=== PATIENT | female | born 1965 | race Caucasian/White ===

== ENCOUNTER 2019-12-17 09:29 | Outpatient (CLI) | payer OTHER, SELFPAY ==
--- NOTE | ~2019-12-17 | US_ITS ---
EXAMINATION: US right upper quadrant DATE: 12/17/2019 10:21 INDICATION: Pancreatic mass TECHNIQUE: Multiple grayscale and Doppler ultrasound images of the abdomen were obtained. COMPARISON: 03/16/2018 FINDINGS: There is a questionable 1.7 cm hypoechoic area in the head of the pancreas. The pancreatic tail is obscured by bowel gas. The liver is normal with normal echogenicity and echotexture. No surfa ce nodularity. Normal hepatopetal flow in the main portal vein. The gallbladder is normal with no abn ormal wall thickening, pericholecystic fluid or stones. The mildly dilated common bile duct measures 7 mm. There was no sonographic Shen sign. IMPRESSION: 1. Possible hypoechoic area in the head of the pancreas which may reflect the pancreatic mass describ ed in the clinical history however comparison imaging is unavailable and would be helpful. In additio n, pancreas protocol MRI or CT are more sensitive for detection and follow-up of pancreatic masses. 2. Mildly dilated common bile duct of unclear significance. Reviewed, dictated and finalized at location A. IMPRESSION: 1. Possible hypoechoic area in the head of the pancreas which may reflect the p ancreatic mass described in the clinical history however comparison imaging is unavailable and would be helpful. In addition, pancreas protocol MRI or CT are more sensitive for detection and follow-up of pancreatic masses. 2. Mildly dilated common bile duct of unclear significance.
== END 2019-12-17 09:30 | disposition home or self-care (01) ==
PROVIDERS: PCP Emergency Medicine; Visit Provider Emergency Medicine
DX: K86.9 Disease of pancreas, unspecified (principal)
CPT/HCPCS: 76705

== ENCOUNTER 2019-12-17 11:53 | Emergency (ER) | payer OTHER, SELFPAY ==
[2019-12-17 12:02] VITALS: BP 157/106; PULSE 92; RESP 18; TEMP 36.8; O2SAT 97
--- NOTE | 2019-12-17 12:43 | ED.GENADULT ---
HPI - General Adult General Chief complaint: Ear Stated complaint: bleeding in the ear Time Seen by Provider: 12/17/19 12:11 Source: patient History of Present Illness HPI narrative: Patient is 54 y/o female complaining of moderate bleeding from right ear starting yesterday. Bleeding has stopped spontaneously. She states that she was making some coffee in the kitchen when this happened. She denies any trauma to her ear. She states that her hearing was muffled and she could not hear much for a while. However, she is able to hear currently. She denies any fever, chill. She has some chronic cough due to COPD. Related Data Home Medications Medication Instructions Recorded Confirmed albuterol sulfate 90 mcg/actuation 1 inh INHALATION Q4H 12/09/19 12/12/19 aerosol inhaler albuterol sulfate 90 mcg/actuation 1 puff INHALATION Q4H PRN 12/09/19 12/12/19 aerosol inhaler alendronate 70 mg tablet 70 mg PO WEEKLY 12/09/19 12/12/19 aspirin 81 mg chewable tablet 81 mg PO DAILY 12/09/19 12/12/19 carvedilol 25 mg tablet 25 mg PO Q12H 12/09/19 12/12/19 losartan 50 mg tablet 50 mg PO DAILY 12/09/19 12/12/19 metformin 500 mg tablet 500 mg PO DAILY 12/09/19 12/12/19 montelukast 10 mg tablet 10 mg PO DAILY 12/09/19 12/12/19 ropinirole 0.25 mg tablet 0.25 mg PO BID 12/09/19 12/12/19 rosuvastatin 40 mg tablet 40 mg PO DAILY 12/09/19 12/12/19 sertraline 100 mg tablet 100 mg PO DAILY 12/09/19 12/12/19 Allergies Allergy/AdvReac Type Severity Reaction Status Date / Time No Known Allergies Allergy Verified 12/17/19 12:10 Review of Systems Constitutional: Constitutional: Denies chills, Denies fever(s), Denies headache(s) and Denies weakness Comments: bleeding from right ear Eyes: Eyes: Denies blurry vision ENT: Denies headache(s) and Denies neck pain Cardiovascular: Cardiovascular: Denies chest pain and Denies dyspnea Respiratory: Respiratory: Denies cough and Denies dyspnea Gastrointestinal: Gastrointestinal: Denies abdominal pain, Denies diarrhea, Denies nausea and Denies vomiting Genitourinary: Genitourinary: Denies hematuria and Denies dysuria Musculoskeletal: Musculoskeletal: Denies back pain and Denies neck pain Neurologic: Denies headache(s) and Denies weakness PMFSH Past Medical History Medical History History of asthma History of COPD History of depression History of diabetes mellitus, type II History of high cholesterol History of hypertension History of stroke Surgical History Surgical History H/O cardiac catheterization H/O removal of cyst brain, unable to remove due to cyst being wrapped around spinal cord. H/O: hysterectomy History of delivery S/P PEANUT CLEANER shunt Family History Family History Father Diabetes mellitus Hypertension Mother Hypertension Other Cerebrovascular accident Family history of arthritis Family history of heart disease in male family member before age 55 Family history of lung disease Social History Social History Smoking packs per day: 1 Smoking cigarettes per day: 20.0 Years smoked: 38 Smoking pack-years: 38.00 Smoking status: Heavy tobacco smoker Tobacco type: cigarettes Alcohol intake: never Exam Const: General: no acute distress and well developed Orientation/consciousness: oriented to person, oriented to place, oriented to time and patient oriented x3 HENMT: Head: normocephalic Ears: external ears normal, TM normal on the left and other (blood in right ear canal, right TM appears perforated) General nose exam: Normal external nose present Eyes: General: appearance normal, both eyes and all related structures Conjunctivae: conjunctivae normal Neck: Neck: normal visual inspection and full ROM Chest: Chest palpation & inspection: normal in
[2019-12-17] MEDS: TETANUS,DIPHTHERIA,AC PERTUSSIS ADULT (0.5 ML) BOOSTRIX IM (13:14)
== END 2019-12-17 13:19 | disposition home or self-care (01) ==
PROVIDERS: Emergency Provider Emergency Medicine; PCP Emergency Medicine
DX: H72.91 Unspecified perforation of tympanic membrane, right ear (principal); J45.909 Unspecified asthma, uncomplicated; F32.9 Major depressive disorder, single episode, unspecified; E11.9 Type 2 diabetes mellitus without complications; E78.5 Hyperlipidemia, unspecified; I10 Essential (primary) hypertension; Z79.84 Long term (current) use of oral hypoglycemic drugs; Z23 Encounter for immunization
CPT/HCPCS: 90471; 90715; 99283

== ENCOUNTER 2019-12-23 14:17 | Outpatient (CLI) | payer OTHER, SELFPAY ==
--- NOTE | ~2019-12-23 | CT_ITS ---
EXAMINATION: CT lumbar spine wo con DATE: 12/23/2019 14:40 INDICATION: Low back pain. TECHNIQUE: Computed tomography (CT) of the lumbar spine was performed without intravenous contrast. A utomated exposure control and iterative reconstruction technique were employed. The dose-length produ ct was 1126.77 mGy-cm. COMPARISON: Lumbar spine CT 04/21/2009 FINDINGS: Bone alignment is normal. There is a chronic compression fracture of L1 with 1/5 loss of he ight. There is mild chronic anterior wedging of T12 vertebral body. There is moderately decreased dis c height at L5-S1. There is developmental osseous central canal stenosis from L3 to L5. The following disc levels are specifically discussed: L1-L2: The disc does not extend beyond the endplate margin. There is severe right and moderate left f acet joint osteoarthritis. There is no neural foraminal stenosis. There is no central canal stenosis. L2-L3: The disc is bulging. There is severe bilateral facet joint osteoarthritis. There is mild bilat eral neural foraminal stenosis. There is mild central canal stenosis. L3-L4: The disc is bulging. There is severe bilateral facet joint osteoarthritis. There is mild bilat eral neural foraminal stenosis. There is mild central canal stenosis. L4-L5: The disc is bulging. There is severe bilateral facet joint osteoarthritis. There is mild bilat eral neural foraminal stenosis. There is mild central canal stenosis. L5-S1: The disc is bulging. There is severe bilateral facet joint osteoarthritis. There is moderate b ilateral neural foraminal stenosis. There is moderate central canal stenosis. IMPRESSION: 1. Moderate lumbar spondylosis, stable from 04/21/2009. Reviewed, dictated and finalized at location A.
== END 2019-12-23 14:18 | disposition home or self-care (01) ==
PROVIDERS: PCP Emergency Medicine
DX: M54.5 Low back pain (principal); M47.26 Other spondylosis with radiculopathy, lumbar region
CPT/HCPCS: 72131

== ENCOUNTER 2020-01-02 14:28 | Outpatient (CLI) | payer OTHER, SELFPAY ==
--- NOTE | ~2020-01-02 | CT_ITS ---
EXAMINATION: CT abdomen wo/w con DATE: 01/02/2020 15:35 INDICATION: Pancreatic mass. TECHNIQUE: Computed tomography (CT) of the abdomen was performed without and with 100 mL Omnipaque 35 0 intravenous contrast. Automated exposure control and iterative reconstruction technique were employ ed. The dose-length product was 2786.64 mGy-cm. COMPARISON: CT abdomen and pelvis 04/20/2015 FINDINGS: The visualized portions of the lung bases are clear without pneumonia or pleural effusion. The heart size is normal. No pericardial effusion. There are coronary artery calcifications. There is a small sliding hiatal hernia. The liver, gallbladder, spleen, and adrenal glands are normal. There is a 1.8 cm cystic lesion of the body of the pancreas. There is cortical thinning of the kidneys. The re are no dilated loops of bowel. A ventriculoperitoneal shunt is noted. There are no pathologically enlarged lymph nodes. There is no free intraperitoneal fluid. There is mild thoracolumbar spondylosis . There is a chronic compression fracture of L1. There is a benign bone island in T10 vertebral body. IMPRESSION: 1. 1.8 cm cystic lesion in the body of the pancreas, increased from 0.9 cm on 04/20/15. The differenti al diagnosis includes pseudocyst, intraductal papillary mucinous neoplasm (IPMN), mucinous cystic anjelica plasm (MCN), serous cystadenoma, and neuroendocrine tumor. Abdomen MRI without and with contrast is r ecommended in 6 months. Reviewed, dictated and finalized at location A. E STACKER HAND IMPRESSION: 1. 1.8 cm cystic lesion in the body of the pancreas, increased from 0.9 cm on . The differential diagnosis includes pseudocyst, intraductal papillary m ucinous neoplasm (IPMN), mucinous cystic neoplasm (MCN), serous cystadenoma, an d neuroendocrine tumor. Abdomen MRI without and with contrast is recommended in 6 months.
--- NOTE | ~2020-01-02 | XR_ITS ---
EXAMINATION: XR hip BI wo pelvis EXAM DATE: 01/02/2020 15:47 INDICATION: Chronic bilateral hip pain. TECHNIQUE: Each hip imaged independently (separate right and also left hip) 'frog leg' and frontal p rojections for interpretation. Comparison is made to prior examination from 05/14/2018. FINDINGS: No radiographic evidence of hip avascular necrosis. There is mild symmetric bilateral hip primary osteoarthritis. There are no acute fractures or dislocations identified. There is no subcuta neous gas. Contrast within the ureters, bladder. There are no radiopaque foreign bodies. IMPRESSION: Mild bilateral hip osteoarthritis. Reviewed, dictated and finalized at location B. MAKER
[2020-01-02 15:21] LABS: Estimated Glomerular Filt Rate > 60
== END 2020-01-02 14:29 | disposition home or self-care (01) ==
PROVIDERS: PCP Emergency Medicine; Visit Provider Emergency Medicine
DX: D13.6 Benign neoplasm of pancreas (principal); M16.0 Bilateral primary osteoarthritis of hip
CPT/HCPCS: 73521; 74170; Q9967

== ENCOUNTER 2021-09-25 01:19 | Inpatient (IN) | payer OTHER, SELFPAY ==
[2021-09-25] VITALS (16 sets, daily range): BP systolic 120–153; BP diastolic 66–83; PULSE 84–104; RESP 16–26; TEMP 36.2–36.8; O2SAT 95–99; BMI 44.4
--- NOTE | 2021-09-25 | ECHO_ITS ---
Patient Info Name: Bev Grossman Age: 56 years : 1965 Gender: Female Ht: 62 in Wt: 231 lbs BSA: 2.20 m2 HR: 99 bpm BP: 120 / 69 mmHg Technical Quality: Good Exam Date: 09/25/2021 9:52 AM Exam Location: [facility] Patient Status: Inpatient Admit Date: 09/25/2021 Staff Ordering Physician: Neri Rooney Dinkey Brakeman: Danny Navarro RDCS Attending Provider: Ramya Adkins MD Referring Physician: Toribio COLLINS; Exam Type: CA echo doppler color flow Study Info Indications R07.9 - Chest pain, unspecified Complete two-dimensional, color flow and Doppler transthoracic echocardiogram is performed. Summary 1. Complete two-dimensional, color flow and Doppler transthoracic echocardiogram is performed. 2. Left ventricular chamber dimension is normal. 3. Left ventricular systolic function is normal, estimated at 55-60%. 4. The left ventricular diastolic function is grade I diastolic dysfunction. Left Ventricle Tissue doppler E/e' is not calculated. Left ventricular chamber dimension is normal. Left ventricular systolic function is normal, estimated at 55-60%. The left ventricular diastolic function is grade I diastolic dysfunction. Right Ventricle Right ventricular chamber dimension is normal. Right ventricular systolic function is normal. Left Atria Left atrial chamber dimension is normal. Right Atria Right atrial chamber dimension is normal. Aortic Valve The aortic valve is not well visualized. Cannot determine number of aortic valve leaflets. There is no aortic valve stenosis. There is no aortic valve regurgitation. Pulmonic Valve There is no pulmonic regurgitation. Mitral Valve There is no mitral valve stenosis. There is no mitral valve regurgitation. Tricuspid Valve There is no tricuspid valve regurgitation. Pericardium/Pleural There is no pericardial effusion. Inferior Vena Cava Normal inferior vena cava with >50% collapse upon inspiration consistent with normal right atrial pressure, 5 mmHg. Aorta The aortic root size at the sinus of Valsalva is normal. Left Ventricular Outflow Tract Name Value Normal LVOT 2D LVOT Diameter 2.0 cm LVOT Doppler LVOT Peak Gradient 7 mmHg LVOT Mean Gradient 4 mmHg LVOT VTI 22 cm LVOT VTI/AV VTI Ratio 0.8 LVOT Stroke Volume 66 ml LVOT CO 6.6 l/min LVOT CI 3.0 l/min/m2 Mitral Valve Name Value Normal MV Doppler MV Peak Gradient 7 mmHg MV Mean Gradient 3 mmHg MV Area (Cont Eq VTI) 3.1 cm2 Tricuspid Valve
--- NOTE | ~2021-09-25 | CT_ITS ---
EXAMINATION: CTA chest PE protocol DATE: 09/25/2021 03:10 INDICATION: Chest pain, shortness of breath for one week TECHNIQUE: Computed tomography angiography (CTA) of the chest was performed with 100 mL Omnipaque-350 intravenous contrast timed to evaluate the pulmonary arteries. Coronal maximum intensity projection 3D-reconstructions were created by the technologist. Automated exposure control and iterative reconst ruction technique were employed. Exam dose: 866.52 mGy-cm total exam DLP. COMPARISON: 09/25/2021 portable AP chest 08/04/2017 CT pulmonary scan FINDINGS: There is moderate opacification the pulmonary arteries and no evidence of pulmonary embolis m. No thoracic aortic aneurysm or dissection. Normal heart size. No pericardial or pleural effusion. No hilar or mediastinal mass lesion or lymphadenopathy. No pulmonary infiltrate or consolidation or pulmonary mass lesion is detected. Hepatic steatosis. Small sliding hiatal hernia. Right T3-T7 diffuse idiopathic skeletal hyperostosis. Mild thoracic scoliosis. No suspicious osteolyt ic or osteoblastic lesions. IMPRESSION: No evidence of pulmonary embolism Hepatic steatosis Small sliding hiatal hernia Reviewed, dictated and finalized at Location [facility]. Reviewed, dictated and finalized at location A.
--- NOTE | ~2021-09-25 | XR_ITS ---
EXAMINATION: XR chest 1V portable DATE: 09/27/2021 09:07 INDICATION: Shortness of breath. TECHNIQUE: A single frontal view of the chest was obtained. COMPARISON: Chest single view 09/25/2021, chest CT 09/25/2021 FINDINGS: There is no pneumonia, pleural effusion, or pneumothorax. The heart size is normal. There i s a ventriculoperitoneal shunt on the left. IMPRESSION: 1. No acute cardiopulmonary disease. Reviewed, dictated and finalized at location A.
--- NOTE | ~2021-09-25 | XR_ITS ---
XR chest 1V portable DATE: 09/25/2021 01:53 INDICATION: Midsternal chest pain. History of COPD, CHF, myocardial infarction and cerebrovascular ac cident TECHNIQUE: Portable upright AP chest on 09/25/2021 at 0149 hours COMPARISON: 08/06/2017 portable AP chest FINDINGS: Normal heart size. No hilar or mediastinal enlargement. No pulmonary infiltrate or consolidation, pleural effusion or pulmonary vascular congestion or pneumo thorax is detected. Levoscoliosis of the upper thoracic spine and minimal dextro scoliosis of the lower thoracic spine. O steopenia. Degenerative catheter tubing overlying left neck, chest and upper abdomen. IMPRESSION: No active cardiopulmonary disease Reviewed, dictated and finalized at location A.
--- NOTE | 2021-09-25 01:32 | ECG_ITS ---
Measurements Intervals [place] Rate: 103 P: -22 MN: 159 QRS: 84 QRSD: 78 T: 48 QT: 356 QTc: 467 Interpretive Statements SINUS TACHYCARDIA BASELINE ARTIFACT- I, II, III, AVL BORDERLINE ECG Electronically Signed On 09-25-2021 7:16:17 CDT by Momo France D.O.
--- NOTE | 2021-09-25 01:34 | ED.CHESTPAIN ---
HPI - Chest Pain General Chief Complaint: Shortness of Breath/Dyspnea Stated Complaint: sob Time Seen by Provider: 09/25/21 01:22 History of Present Illness HPI narrative: Patient is a 56-year-old female complaining of chest pain, midsternal, tightness, 8 out of 10, nonradiating accompanied by cough, productive, clear sputum and shortness of breath that started last night. Patient denies any abdominal pain, nausea, vomiting, diaphoresis, fever or chills. Related Data Home Medications Medication Instructions Recorded Confirmed albuterol sulfate 90 mcg/actuation 1 inh inhalation Q4H 12/09/19 06/07/21 aerosol inhaler (Ventolin HFA) alendronate 70 mg tablet 70 mg PO WEEKLY 12/09/19 06/07/21 montelukast 10 mg tablet 10 mg PO DAILY 12/09/19 06/07/21 (Singulair) ropinirole 0.25 mg tablet 0.25 mg PO BID 12/09/19 06/07/21 ergocalciferol (vitamin D2) 50 mcg 50 mcg PO DAILY 06/07/21 06/07/21 (2,000 unit) capsule metformin 500 mg tablet 1,000 mg PO DAILY 06/07/21 06/07/21 sitagliptin 25 mg tablet (Januvia) 25 mg PO DAILY 06/07/21 06/07/21 Allergies Allergy/AdvReac Type Severity Reaction Status Date / Time No Known Allergies Allergy Verified 09/25/21 05:03 Review of Systems Review of Systems: All systems reviewed & are unremarkable except as noted in HPI and below Constitutional: Constitutional: Denies body ache(s), Denies chills, Denies excessive sweating, Denies fatigue, Denies fever(s), Denies headache(s), Denies lethargy, Denies malaise, Denies weakness and Denies weight loss Eyes: Eyes: Denies blurry vision, Denies change in vision and Denies loss of vision ENT: Denies dizziness, Denies ear discharge, Denies headache(s), Denies lip swelling, Denies epistaxis, Denies nasal congestion, Denies neck pain, Denies throat swelling and Denies tongue swelling Cardiovascular: Cardiovascular: Denies chest pain, Denies chest pain at rest, Denies chest pain with activity, Denies diaphoresis, Denies rapid heart rate, Denies edema, Denies irregular heart rhythm, Denies lightheadedness, Denies palpitations, Denies dyspnea and Denies dyspnea on exertion Respiratory: Respiratory: Denies chest congestion, Denies cough, Denies hemoptysis, Denies dyspnea and Denies dyspnea on exertion Gastrointestinal: Gastrointestinal: Denies abdominal pain, Denies melena, Denies hematochezia, Denies diarrhea, Denies nausea, Denies vomiting and Denies hematemesis Musculoskeletal: Musculoskeletal: Denies abnormal gait, Denies deformity, Denies joint swelling, Denies limited range of motion, Denies neck pain and Denies numbness Neurologic: Denies Abnormal speech present, Denies abnormal gait, Denies confusion, Denies dizziness, Denies headache(s), Denies focal weakness, Denies loss of vision, Denies numbness, Denies Other visual disturbances, Denies Sensory deficit (Neuro) and Denies weakness Psychiatric: Psychiatric: Denies confusion, Denies depression, Denies auditory hallucinations, Denies homicidal ideation and Denies suicidal ideation Endocrine: Endocrine: Denies cold intolerance, Denies excessive sweating, Denies fatigue, Denies heat intolerance and Denies palpitations Hematologic/Lymphatic: Hematologic/Lymphatic: Denies easy bleeding and Denies easy bruising Allergic/Immunologic: Allergic/Immunologic: Denies lip swelling, Denies throat swelling and Denies tongue swelling PMFSH Past Medical History Medical History Anxiety Arthritis Asthma BMI greater than 40 Chronic right hip pain Claustrophobia Dizziness Excessive thirst Gastritis History of asthma History of COPD History of depression History of diabetes mellitus, type II History of high cholesterol History of hypertension History of stroke Left hip pain Lumbar radiculopathy Nausea ELIOT (obstructive sleep apnea) Wears glasses Weight gain Surgical History Surgical History
[2021-09-25] MEDS: ASPIRIN 81 MG CHEWABLE TABLET 324 MG PO (01:54)
[2021-09-25 01:55] LABS: Basophils Percent Auto 0.4 % (0.2-1.2); Eosinophils Absolute Auto 0.2 K/mm3 (0-0.3); Eosinophils Percent Auto 1.9 % (0-4.4); Hematocrit 29.9 % (37.0-47.0); Immature Granulocyte Percent A 1.1 % (0-0.5); Lymphocytes Absolute Auto 1.33 K/mm3 (0.9-3.2); Lymphocytes Percent Auto 14.7 % (18.3-44.2); Mean Corpuscular HGB Conc 30.1 g/dl (32-36); Mean Corpuscular Hemoglobin 25.6 pg (26-34); Mean Corpuscular Volume 85.2 fl (80-100); Mean Platelet Volume 9.5 fl (7.4-10.4); Monocytes Absolute Auto 0.6 K/mm3 (0.1-0.6); Monocytes Percent Auto 6.7 % (2.6-8.5); Neutrophils Absolute Auto 6.8 K/mm3 (1.3-6.7); Neutrophils Percent Auto 75.2 % (45.5-73.1); Platelet Count Result 349 k/mm3 (150-375); Red Blood Count 3.51 M/mm3 (4.2-5.4); Red Cell Distribution Width 20.6 % (11.5-14.5); White Blood Count 9.1 K/mm3 (4.5-10.0)
[2021-09-25 02:05] LABS: Prothrombin Time 12.4 Seconds (11.1-14.7)
[2021-09-25 02:06] LABS: Partial Thromboplastin Time 27.5 SECONDS (22.3-36.8)
[2021-09-25 02:08] LABS: Alanine Aminotransferase 33 U/L (6-35); Albumin Level 4.2 g/dL (3.5-5.1); Alkaline Phosphatase 149 U/L (38-126); Anion Gap 13 mmol/L (8-16); Aspartate Amino Transferase 25 U/L (14-36); Bilirubin,Total 0.4 mg/dL (0.2-1.3); Blood Urea Nitrogen 16 mg/dL (7-17); Calcium 8.9 mg/dL (8.4-10.2); Carbon Dioxide 19 mmol/L (22-30); Chloride 102 mmol/L (98-107); Estimated CRCL calculation 63 ml/min; Estimated Glomerular Filt Rate 57; Glucose 189 mg/dL (65-110); Potassium 4.1 mmol/L (3.4-5.0); Sodium 134 mmol/L (137-145)
[2021-09-25 02:17] LABS: NT Pro B Type Natriuretic Pept 132 pg/mL (5-100)
[2021-09-25 02:20] LABS: Troponin I < 0.012 ng/mL (0.000-0.034)
[2021-09-25] MEDS: MORPHINE SULFATE (*CRX) 2 MG/ML INJ IV PUSH ×5 (02:41→21:48)
[2021-09-25] MEDS: ONDANSETRON INJ 4 MG/2 ML VIAL IV PUSH (02:43)
[2021-09-25 05:20] LABS: Troponin I < 0.012 ng/mL (0.000-0.034)
--- NOTE | 2021-09-25 08:28 | ADMGEN ---
This patient, Bev Grossman, was admitted to IMU Room 200-01 at 0703. Patient/family oriented to hospital policies and general routines including ID bracelet, bed and alarms, visiting hours, pain management, procedures, bathroom and other care routines, personal items, smoking policy, room service/diet, and visiting hours. Information on how to activate the Rapid Response Team has been discussed. Patient/Family are encouraged to report perceived risks to care and to ask questions if they do not understand what they are told or what they should do.
[2021-09-25 09:10] LABS: Immature Reticulocyte Fraction 36.3 % (3.0-15.9); Reticulocyte Hemoglobin Conten 27.4 pg (28.2-35.7); Reticulocyte Percent 2.33 % (0.7-4.3); Reticulocytes Absolute 0.08 B/L (32.2-175.7)
[2021-09-25] MEDS: HYDROcodone/acetaminophen (*CRX) 5-325 MG TABLET 1 TAB PO (09:16)
[2021-09-25 09:19] LABS: Cholesterol 255 mg/dL (0-200); HDL Direct 48 mg/dL; Triglycerides 336 mg/dL (<150)
[2021-09-25 09:30] LABS: LDL Cholesterol Direct 145 mg/dL; Transferrin 313 mg/dL (206-381)
[2021-09-25 09:42] LABS: Hemoglobin A1C 7.9 % (<5.7)
[2021-09-25 10:27] LABS: Folic Acid 4.2 ng/mL (2.76->20); Vitamin B12 > 1000.0 pg/mL (239-931)
[2021-09-25] MEDS: ENOXAPARIN 40 MG/0.4 ML SYRINGE SUB-Q (10:30)
[2021-09-25] MEDS: ATORVASTATIN 20 MG TABLET PO (10:31)
[2021-09-25] MEDS: ASPIRIN 81 MG ENTERIC TABLET PO (10:31)
--- NOTE | 2021-09-25 11:00 | PM.IMHP ---
H&P: HPI History of Present Illness Date/Time: 09/25/21 1100 Chief Complaint: shortness of breath and chest pain Narrative: patient is a 56-year-old obese female with a past medical history of hypertension, anxiety and depression, COPD, asthma who presented to the ED with complaints of increasing shortness of breath and chest pain. As I arrived to get more formation the patient was having a really bad coughing intact. It sounds pretty productive in wet. she stated the cough is been around for 3-4 months however has gotten worse over the last couple days. She is also complaining of palpitations which she said last report days as well. She also stated that her legs are not swollen as bad right now but they have been bad over the last couple days. She stated that she is dizzy and she fell last week. She does admit to increased shortness of breath however no sputum changes or wheezes. She also states the chest pain is like a baby elephant sitting on her chest and it was a 10/10 last night. She is very weak and fatigued. She denies any nausea, vomiting, abdominal pain, as appetite changes. She also stated that she has been having black and tarry stools however she has been having a week of constipation and finally had that bowel movement yesterday. Her chest pain is sternal which it seems more likely to be from the cough. As the patient has increased her smoking to 1.5 packs a day. The cough is productive And producing a white medium thickness mucus. Troponin was negative x2, EKG showed no changes nor any ST elevation or abnormalities, chest x-ray showed no acute cardiopulmonary disease, CTA No evidence of PE or PNA Patient is being admitted to the hospitalist service in observation Review of Systems Review of Systems: All systems reviewed & are unremarkable except as noted in HPI and below PMFSH Past Medical History Medical History Anxiety Arthritis Asthma COPD (chronic obstructive pulmonary disease) CVA (cerebral vascular accident) Depression Diabetes Folliculitis Gastritis Hyperlipemia Hypertension Lumbar radiculopathy ELIOT (obstructive sleep apnea) Surgical History Surgical History H/O cardiac catheterization H/O removal of cyst brain, unable to remove due to cyst being wrapped around spinal cord. 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 Family History Family History Father Diabetes mellitus Hypertension Mother Hypertension Other Arthritis Asthma Cancer Cerebrovascular accident Depression Family history of arthritis Family history of heart disease in male family member before age 55 Family history of lung disease High cholesterol Social History Social History Smoking packs per day: 1.5 Smoking cigarettes per day: 30.0 Years smoked: 44 Smoking pack-years: 66.00 Smoking status: Current every day smoker Tobacco type: cigarettes Alcohol intake: never Substance use: never Spiritual care concerns: No Meds Home Medications and Allergies Home Medications Medication Instructions Recorded Confirmed Type albuterol sulfate 90 mcg/actuation 1 inh inhalation Q4H 12/09/19 09/25/21 History aerosol inhaler (Ventolin HFA) alendronate 70 mg tablet 70 mg PO WEEKLY 12/09/19 09/25/21 History montelukast 10 mg tablet 10 mg PO DAILY 12/09/19 09/25/21 History (Singulair) ropinirole 0.25 mg tablet 0.25 mg PO DAILY 12/09/19 09/25/21 History ergocalciferol (vitamin D2) 50 mcg 50 mcg PO DAILY 06/07/21 09/25/21 History (2,000 unit) capsule metformin 500 mg tablet 500 mg PO DAILY 06/07/21 09/25/21 History sitagliptin 25 mg tablet (Januvia) 25 mg PO DAILY 06/07/21 09/25/21 History amitriptyline 50 mg tablet 50 mg PO HS 09/25/21 0
[2021-09-25] MEDS: IPRATROPIUM BR 0.02% INH SOLN 0.5 MG/2.5 ML VIAL INHALATION ×3 (11:03→20:06)
[2021-09-25 11:16] LABS: Glucose Point of Care 286 mg/dl (65-105)
[2021-09-25] MEDS: ALBUTEROL SULFATE NEB 2.5 MG/3 ML INH INHALATION ×3 (11:20→20:06)
[2021-09-25 11:26] LABS: Iron 38 ug/dL (37-170)
[2021-09-25 11:35] LABS: Percent Iron Saturation 10 % (20-50)
[2021-09-25 12:02] LABS: Ferritin 7.92 ng/mL (11.1-264)
[2021-09-25] MEDS: INSULIN ASPART (*BKC) 100 UNITS/ML SUB-Q ×2 (13:06→17:40)
[2021-09-25] MEDS: oxyCODONE/ACETAMINOPHEN (*CRX) 5-325 MG TABLET 1 TABLET PO (14:55)
[2021-09-25 16:33] LABS: Glucose Point of Care 262 mg/dl (65-105)
[2021-09-25] MEDS: methylPREDNISolone SOD SUCC 40 MG VIAL IV PUSH (17:42)
[2021-09-25] MEDS: DICYCLOMINE HCL 10 MG CAPSULE PO (17:43)
[2021-09-25] MEDS: PANTOPRAZOLE 40 MG TABLET PO (17:43)
[2021-09-25 20:27] LABS: Glucose Point of Care 327 mg/dl (65-105)
[2021-09-25] MEDS: CELECOXIB 100 MG CAPSULE PO (20:48)
[2021-09-25] MEDS: AMITRIPTYLINE HCL 25 MG TABLET 50 MG PO (20:48)
[2021-09-25] MEDS: QUEtiapine FUMARATE 100 MG TABLET 400 MG PO (20:49)
[2021-09-25] MEDS: cloNIDine HCL 0.1 MG TABLET PO (20:56)
[2021-09-25] MEDS: INSULIN ASPART (*BKC) 100 UNITS/ML 6 UNITS SUB-Q (21:44)
[2021-09-26] VITALS (24 sets, daily range): BP systolic 111–142; BP diastolic 70–89; PULSE 89–113; RESP 13–22; TEMP 36.1–37.1; O2SAT 95–98
[2021-09-26] MEDS: ALBUTEROL SULFATE NEB 2.5 MG/3 ML INH INHALATION ×6 (00:06→20:01)
[2021-09-26] MEDS: IPRATROPIUM BR 0.02% INH SOLN 0.5 MG/2.5 ML VIAL INHALATION ×6 (00:06→20:02)
[2021-09-26 00:35] LABS: Glucose Point of Care 381 mg/dl (65-105)
[2021-09-26] MEDS: oxyCODONE/ACETAMINOPHEN (*CRX) 5-325 MG TABLET 1 TABLET PO ×2 (01:48→12:48)
[2021-09-26] MEDS: INSULIN ASPART (*BKC) 100 UNITS/ML 8 UNITS SUB-Q (01:49)
[2021-09-26 04:46] LABS: Basophils Percent Auto 0.1 % (0.2-1.2); Hematocrit 30.7 % (37.0-47.0); Immature Granulocyte Absolute 0.08 K/mm3 (0.00-0.031); Immature Granulocyte Percent A 1.1 % (0-0.5); Lymphocytes Absolute Auto 0.53 K/mm3 (0.9-3.2); Lymphocytes Percent Auto 7.2 % (18.3-44.2); Mean Corpuscular HGB Conc 29.3 g/dl (32-36); Mean Corpuscular Hemoglobin 25.6 pg (26-34); Mean Corpuscular Volume 87.2 fl (80-100); Monocytes Absolute Auto 0.2 K/mm3 (0.1-0.6); Monocytes Percent Auto 2.7 % (2.6-8.5); Neutrophils Absolute Auto 6.5 K/mm3 (1.3-6.7); Neutrophils Percent Auto 88.9 % (45.5-73.1); Platelet Count Result 341 k/mm3 (150-375); Red Blood Count 3.52 M/mm3 (4.2-5.4); Red Cell Distribution Width 20.7 % (11.5-14.5); White Blood Count 7.4 K/mm3 (4.5-10.0)
[2021-09-26 05:09] LABS: Alanine Aminotransferase 34 U/L (6-35); Albumin Level 4.2 g/dL (3.5-5.1); Alkaline Phosphatase 139 U/L (38-126); Anion Gap 10 mmol/L (8-16); Aspartate Amino Transferase 28 U/L (14-36); Bilirubin,Total 0.4 mg/dL (0.2-1.3); Blood Urea Nitrogen 15 mg/dL (7-17); Calcium 8.8 mg/dL (8.4-10.2); Carbon Dioxide 23 mmol/L (22-30); Chloride 103 mmol/L (98-107); Estimated CRCL calculation 59 ml/min; Estimated Glomerular Filt Rate 51; Glucose 312 mg/dL (65-110); Magnesium 2.2 mg/dL (1.6-2.3); Potassium 5.6 mmol/L (3.4-5.0); Sodium 136 mmol/L (137-145)
--- NOTE | 2021-09-26 07:45 | PM.IMPN ---
Progress Note: A&P Assessment and Plan (1) COPD (chronic obstructive pulmonary disease): Code(s): J44.9 - Chronic obstructive pulmonary disease, unspecified Status: Acute Assessment and Plan: Chest xray no acute cardiopulmonary disease CTA shows no PE Continue home Singulair Neb treatments Trend respiratory status the steroid has seemed to help will decrease to 40 mg daily p.o. Not convinced that this is an acute exacerbation (2) Chest pain in adult: Code(s): R07.9 - Chest pain, unspecified Status: Acute Assessment and Plan: EKG does not have any ST elevation or abnomalities Chest xray showed no acute abnormality CTA showed no PE Trops negative Blood pressure stable Echo EF 55-60% with grade 1 diastolic dysfunction BNP 132 Relieved with morphine consider cardiology consult (3) Hyperkalemia: Code(s): E87.5 - Hyperkalemia Status: Acute Assessment and Plan: Potassium 5.6 One dose of lasix given Will repeat this afternoon Could also be related to the constipation Renal function is normal Will continue to trend (4) Anemia: Code(s): D64.9 - Anemia, unspecified Status: Acute Assessment and Plan: H/H 9.0/30.7 Anemia labs Iron 38, TIBC 377,% saturation 10, transferrin 313, ferritin 7.92, B12 is greater than a 1000, folate 4.2 increase iron supplementation b.i.d. Transfuse if <7.0 Trend labs (5) Tobacco abuse: Code(s): Z72.0 - Tobacco use Status: Acute Assessment and Plan: Smoking cessation for >8 minutes Smoking patch and gum (6) Hypertension: Code(s): I10 - Essential (primary) hypertension Status: Acute Assessment and Plan: Current BP is 121/71 BP was 150/83 upon arrival Trend blood pressure consider initiation of therapy if indicated (7) Hyperlipemia: Code(s): E78.5 - Hyperlipidemia, unspecified Status: Acute Assessment and Plan: No current home therapy Initiate atorvastatin 20mg PO daily Lipid panel triglycerides 336, Cholesterol 255, LDL 145, HDL 48 (8) Diabetes: Code(s): E11.9 - Type 2 diabetes mellitus without complications Status: Acute Assessment and Plan: Current glucose 312 Hold home metformin and sitagliptin Accu-Cheks a.c. HS insulin sliding scale, increase to high scale Add lantus 11 units at night trend glucose A1c 7.9 adjust therapy as indicated hypoglycemia protocol (9) Constipation: Code(s): K59.00 - Constipation, unspecified Status: Acute Assessment and Plan: Miraladarron and senna on board Time Spent With Patient Time with patient: Greater than 35 minutes Subjective Date/time seen: 09/26/21744 Interval history: 09/26/21744 Patient said she is doing very well today. She stated that her cough is better. She is hungry and she is ready for food. She did still have some shortness of breath especially with exertion. She is also complaining of constipation. She denies any chest pain, nausea, vomiting. Potassium is elevated today at 5.6 however she has no symptoms of chest pain or arrhythmias at this time. Patient should be able to transfer to medical tele. 09/25/21? 1100 ?patient is a 56-year-old obese female with a past medical history of hypertension, anxiety and depression, COPD, asthma who presented to the ED with complaints of increasing shortness of breath and chest pain.? As I arrived to get more formation the patient was having a really bad coughing intact.? It sounds pretty productive in wet. she stated the cough is been around for 3-4 months however has gotten worse over the last couple days.? She is also complaining of palpitations which she said last report days as well.? She also stated that her legs are not swollen as bad right now but they have been bad
--- NOTE | 2021-09-26 07:45 | P.PNIM_ITS ---
Progress Note: A&P Assessment and Plan (1) COPD (chronic obstructive pulmonary disease): Code(s): J44.9 - Chronic obstructive pulmonary disease, unspecified Status: Acute Assessment and Plan: * Chest xray no acute cardiopulmonary disease * CTA shows no PE * Continue home Singulair * Neb treatments * Trend respiratory status * the steroid has seemed to help will decrease to 40 mg daily p.o. * Not convinced that this is an acute exacerbation (2) Chest pain in adult: Code(s): R07.9 - Chest pain, unspecified Status: Acute Assessment and Plan: * EKG does not have any ST elevation or abnomalities * Chest xray showed no acute abnormality * CTA showed no PE * Trops negative * Blood pressure stable * Echo EF 55-60% with grade 1 diastolic dysfunction * BNP 132 * Relieved with morphine * consider cardiology consult (3) Hyperkalemia: Code(s): E87.5 - Hyperkalemia Status: Acute Assessment and Plan: * Potassium 5.6 * One dose of lasix given * Will repeat this afternoon * Could also be related to the constipation * Renal function is normal * Will continue to trend (4) Anemia: Code(s): D64.9 - Anemia, unspecified Status: Acute Assessment and Plan: * H/H 9.0/30.7 * Anemia labs Iron 38, TIBC 377,% saturation 10, transferrin 313, ferritin 7.92, B12 is greater than a 1000, folate 4.2 * increase iron supplementation b.i.d. * Transfuse if <7.0 * Trend labs (5) Tobacco abuse: Code(s): Z72.0 - Tobacco use Status: Acute Assessment and Plan: * Smoking cessation for >8 minutes * Smoking patch and gum (6) Hypertension: Code(s): I10 - Essential (primary) hypertension Status: Acute Assessment and Plan: * Current BP is 121/71 * BP was 150/83 upon arrival * Trend blood pressure * consider initiation of therapy if indicated (7) Hyperlipemia: Code(s): E78.5 - Hyperlipidemia, unspecified Status: Acute Assessment and Plan: * No current home therapy * Initiate atorvastatin 20mg PO daily * Lipid panel triglycerides 336, Cholesterol 255, LDL 145, HDL 48 (8) Diabetes: Code(s): E11.9 - Type 2 diabetes mellitus without complications Status: Acute Assessment and Plan: * Current glucose 312 * Hold home metformin and sitagliptin * Accu-Cheks a.c. HS * insulin sliding scale, increase to high scale * Add lantus 11 units at night * trend glucose * A1c 7.9 * adjust therapy as indicated * hypoglycemia protocol (9) Constipation: Code(s): K59.00 - Constipation, unspecified Status: Acute Assessment and Plan: * Miralax and senna on board Time Spent With Patient Time with patient: Greater than 35 minutes Subjective Date/time seen: 09/26/21744 Interval history: 09/26/21744 Patient said she is doing very well today. She stated that her cough is better. She is hungry and she is ready for food. She did still have some shortness of breath especially with exertion. She is also complaining of constipation. She denies any chest pain, nausea, vomiting. Potassium is elevated today at 5.6 however she has no symptoms of chest pain or arrhythmias at this time. Patient should be
[2021-09-26 08:26] LABS: Glucose Point of Care 279 mg/dl (65-105)
[2021-09-26] MEDS: methylPREDNISolone SOD SUCC 40 MG VIAL IV PUSH (08:36)
[2021-09-26] MEDS: ENOXAPARIN 40 MG/0.4 ML SYRINGE SUB-Q (08:36)
[2021-09-26] MEDS: ATORVASTATIN 20 MG TABLET PO (08:37)
[2021-09-26] MEDS: MAGNESIUM OXIDE 400 MG TABLET PO (08:37)
[2021-09-26] MEDS: ASPIRIN 81 MG ENTERIC TABLET PO (08:37)
[2021-09-26] MEDS: FUROSEMIDE 40 MG TABLET PO (08:37)
[2021-09-26] MEDS: ASPIRIN 81 MG CHEWABLE TABLET PO (08:37)
[2021-09-26] MEDS: ESCITALOPRAM OXALATE 10 MG TABLET 20 MG PO (08:37)
[2021-09-26] MEDS: DICYCLOMINE HCL 10 MG CAPSULE PO ×2 (08:38→17:06)
[2021-09-26] MEDS: MONTELUKAST SODIUM 10 MG TABLET PO (08:38)
[2021-09-26] MEDS: PANTOPRAZOLE 40 MG TABLET PO ×2 (08:38→17:06)
[2021-09-26] MEDS: FERROUS SULFATE 324 MG TABLET PO ×2 (08:38→17:06)
[2021-09-26] MEDS: dilTIAZem HCL CD 180 MG CAP.ER.24H 360 MG PO (08:38)
[2021-09-26] MEDS: QUEtiapine FUMARATE 25 MG TABLET 50 MG PO (08:39)
[2021-09-26] MEDS: rOPINIRole HCL 0.25 MG TABLET PO (08:39)
[2021-09-26] MEDS: LOSARTAN POTASSIUM 50 MG TABLET PO (08:39)
[2021-09-26] MEDS: INSULIN ASPART (*BKC) 100 UNITS/ML SUB-Q ×4 (08:41→17:05)
[2021-09-26] MEDS: FUROSEMIDE INJ 40 MG/4 ML VIAL IV PUSH (08:54)
[2021-09-26] MEDS: SENNA/DOCUSATE SODIUM TABLET 1 TAB PO (12:49)
[2021-09-26] MEDS: polyethylene glycoL 3350 17 GM POWD.PACK PO (12:49)
[2021-09-26 13:03] LABS: Glucose Point of Care 446 mg/dl (65-105)
--- NOTE | 2021-09-26 13:43 | PC.NURSE ---
notified Jerry Rooney of blood sugar greater than 400. Ordered 70/30 novolg, plus sliding scale.
--- NOTE | 2021-09-26 15:58 | PCDIET ---
This patient, Bev Grossman, was transferred to [ [facility]] on 09/26/21 at 1558. Personal belongings sent with patient. Report given to [ shahid]. Appropriate documentation sent with patient.
[2021-09-26 16:20] LABS: Potassium 4.9 mmol/L (3.4-5.0)
[2021-09-26 16:39] LABS: Glucose Point of Care 415 mg/dl (65-105)
[2021-09-26] MEDS: INSULIN ASPART (*BKC) 100 UNITS/ML 10 UNITS SUB-Q (17:05)
[2021-09-26] MEDS: MORPHINE SULFATE (*CRX) 2 MG/ML INJ IV PUSH (17:23)
[2021-09-26 21:04] LABS: Glucose Point of Care 270 mg/dl (65-105)
[2021-09-26] MEDS: QUEtiapine FUMARATE 100 MG TABLET 400 MG PO (21:12)
[2021-09-26] MEDS: CELECOXIB 100 MG CAPSULE PO (21:13)
[2021-09-26] MEDS: cloNIDine HCL 0.1 MG TABLET PO (21:13)
[2021-09-26] MEDS: AMITRIPTYLINE HCL 25 MG TABLET 50 MG PO (21:13)
[2021-09-26] MEDS: INSULIN GLARGINE (*BKC) 100 UNITS/ML 11 UNITS SUB-Q (21:13)
[2021-09-27] VITALS (24 sets, daily range): BP systolic 112–120; BP diastolic 69–83; PULSE 84–113; RESP 12–20; TEMP 36.1–37.1; O2SAT 92–97
[2021-09-27] MEDS: IPRATROPIUM BR 0.02% INH SOLN 0.5 MG/2.5 ML VIAL INHALATION ×6 (00:04→21:35)
[2021-09-27] MEDS: ALBUTEROL SULFATE NEB 2.5 MG/3 ML INH INHALATION ×6 (00:04→21:35)
[2021-09-27] MEDS: oxyCODONE/ACETAMINOPHEN (*CRX) 5-325 MG TABLET 1 TABLET PO ×2 (02:43→12:14)
[2021-09-27 06:28] LABS: Basophils Percent Auto 0.2 % (0.2-1.2); Eosinophils Percent Auto 0.1 % (0-4.4); Hematocrit 28.7 % (37.0-47.0); Hemoglobin 8.4 g/dL (12.0-15.0); Immature Granulocyte Absolute 0.12 K/mm3 (0.00-0.031); Immature Granulocyte Percent A 1.1 % (0-0.5); Lymphocytes Percent Auto 18.2 % (18.3-44.2); Mean Corpuscular HGB Conc 29.3 g/dl (32-36); Mean Corpuscular Hemoglobin 25.5 pg (26-34); Mean Platelet Volume 9.8 fl (7.4-10.4); Monocytes Absolute Auto 0.8 K/mm3 (0.1-0.6); Monocytes Percent Auto 7.9 % (2.6-8.5); Neutrophils Absolute Auto 7.6 K/mm3 (1.3-6.7); Neutrophils Percent Auto 72.5 % (45.5-73.1); Platelet Count Result 334 k/mm3 (150-375); Red Cell Distribution Width 20.9 % (11.5-14.5); White Blood Count 10.4 K/mm3 (4.5-10.0)
[2021-09-27 06:46] LABS: Alanine Aminotransferase 25 U/L (6-35); Alkaline Phosphatase 125 U/L (38-126); Anion Gap 12 mmol/L (8-16); Aspartate Amino Transferase 22 U/L (14-36); Bilirubin,Total 0.5 mg/dL (0.2-1.3); Blood Urea Nitrogen 18 mg/dL (7-17); Calcium 8.8 mg/dL (8.4-10.2); Carbon Dioxide 27 mmol/L (22-30); Chloride 98 mmol/L (98-107); Estimated CRCL calculation 59 ml/min; Estimated Glomerular Filt Rate 51; Glucose 234 mg/dL (65-110); Potassium 4.1 mmol/L (3.4-5.0); Sodium 137 mmol/L (137-145)
[2021-09-27 07:38] LABS: Glucose Point of Care 228 mg/dl (65-105)
[2021-09-27] MEDS: polyethylene glycoL 3350 17 GM POWD.PACK PO (08:51)
[2021-09-27] MEDS: ENOXAPARIN 40 MG/0.4 ML SYRINGE SUB-Q (08:51)
[2021-09-27] MEDS: ASPIRIN 81 MG CHEWABLE TABLET PO (08:52)
[2021-09-27] MEDS: dilTIAZem HCL CD 180 MG CAP.ER.24H 360 MG PO (08:52)
[2021-09-27] MEDS: DICYCLOMINE HCL 10 MG CAPSULE PO ×2 (08:52→17:22)
[2021-09-27] MEDS: predniSONE 20 MG TABLET 40 MG PO (08:52)
[2021-09-27] MEDS: QUEtiapine FUMARATE 25 MG TABLET 50 MG PO (08:52)
[2021-09-27] MEDS: ATORVASTATIN 20 MG TABLET PO (08:52)
[2021-09-27] MEDS: MAGNESIUM OXIDE 400 MG TABLET PO (08:52)
[2021-09-27] MEDS: FERROUS SULFATE 324 MG TABLET PO ×2 (08:52→17:22)
[2021-09-27] MEDS: ESCITALOPRAM OXALATE 10 MG TABLET 20 MG PO (08:52)
[2021-09-27] MEDS: MONTELUKAST SODIUM 10 MG TABLET PO (08:53)
[2021-09-27] MEDS: SENNA/DOCUSATE SODIUM TABLET 1 TAB PO (08:53)
[2021-09-27] MEDS: LOSARTAN POTASSIUM 50 MG TABLET PO (08:53)
[2021-09-27] MEDS: INSULIN ASPART (*BKC) 100 UNITS/ML SUB-Q ×6 (08:53→17:23)
[2021-09-27] MEDS: FUROSEMIDE 40 MG TABLET PO (08:53)
[2021-09-27] MEDS: PANTOPRAZOLE 40 MG TABLET PO ×2 (08:53→17:23)
[2021-09-27 09:44] LABS: NT Pro B Type Natriuretic Pept 190 pg/mL (5-100)
--- NOTE | 2021-09-27 11:15 | PM.IMPN ---
Progress Note: A&P Assessment and Plan (1) COPD (chronic obstructive pulmonary disease): Code(s): J44.9 - Chronic obstructive pulmonary disease, unspecified Status: Acute Assessment and Plan: Chest xray no acute cardiopulmonary disease CTA shows no PE Continue home Singulair Neb treatments Trend respiratory status the steroid has seemed to help will decrease to 40 mg daily p.o. Give one dose of IV steroids Not convinced that this is an acute exacerbation (2) Chest pain in adult: Code(s): R07.9 - Chest pain, unspecified Status: Acute Assessment and Plan: EKG does not have any ST elevation or abnomalities Chest xray showed no acute abnormality CTA showed no PE Trops negative Blood pressure stable Echo EF 55-60% with grade 1 diastolic dysfunction BNP 132 Relieved with morphine consider cardiology consult (3) Hyperkalemia: Code(s): E87.5 - Hyperkalemia Status: Acute Assessment and Plan: Potassium 4.1 Seems better today Repeat dose of lasix Could also be related to the constipation Renal function is normal Will continue to trend (4) Anemia: Code(s): D64.9 - Anemia, unspecified Status: Acute Assessment and Plan: H/H 8.4/28.7 Anemia labs Iron 38, TIBC 377,% saturation 10, transferrin 313, ferritin 7.92, B12 is greater than a 1000, folate 4.2 increase iron supplementation b.i.d. Transfuse if <7.0 Trend labs (5) Tobacco abuse: Code(s): Z72.0 - Tobacco use Status: Acute Assessment and Plan: Smoking cessation for >8 minutes Smoking patch and gum (6) Hypertension: Code(s): I10 - Essential (primary) hypertension Status: Acute Assessment and Plan: Current BP is 112/69 BP was 150/83 upon arrival Trend blood pressure consider initiation of therapy if indicated (7) Hyperlipemia: Code(s): E78.5 - Hyperlipidemia, unspecified Status: Acute Assessment and Plan: No current home therapy Initiate atorvastatin 20mg PO daily Lipid panel triglycerides 336, Cholesterol 255, LDL 145, HDL 48 (8) Diabetes: Code(s): E11.9 - Type 2 diabetes mellitus without complications Status: Acute Assessment and Plan: Current glucose 234 Hold home metformin and sitagliptin Accu-Cheks a.c. HS insulin sliding scale, increase to high scale Add lantus 11 units at night trend glucose A1c 7.9 adjust therapy as indicated hypoglycemia protocol (9) Constipation: Code(s): K59.00 - Constipation, unspecified Status: Acute Assessment and Plan: Miralax and senna on board (10) Hemoptysis: Code(s): R04.2 - Hemoptysis Status: Acute Assessment and Plan: Complaints of coughing up blood Culture being sent No acute abnormality on chest xray Continue to trend respiratory status Could be related to fluid overload or possible COPD exacerbation and cough Time Spent With Patient Time with patient: Greater than 35 minutes Subjective Date/time seen: 09/27/21 11:15 Interval history: 09/27/21 1115 patient was sleeping when I went to evaluate her. Patient stated that she is just very tired and weak and feels worse today. She also states that her breathing is a little worse as well. Her biggest concern though was she coughs up blood. She denies any chest pain nausea or vomiting. Will give her 1 dose of steroids and sputum culture was sent for evaluation. 09/26/21 0745 Patient said she is doing very well today. She stated that her cough is better. She is hungry and she is ready for food. She did still have some shortness of breath especially with exertion. She is also complaining of constipation. She denies any chest pain, nausea, vomiting. Potassium is elevated today at 5.6 however she has no
--- NOTE | 2021-09-27 11:15 | P.PNIM_ITS ---
Progress Note: A&P Assessment and Plan (1) COPD (chronic obstructive pulmonary disease): Code(s): J44.9 - Chronic obstructive pulmonary disease, unspecified Status: Acute Assessment and Plan: * Chest xray no acute cardiopulmonary disease * CTA shows no PE * Continue home Singulair * Neb treatments * Trend respiratory status * the steroid has seemed to help will decrease to 40 mg daily p.o. * Give one dose of IV steroids * Not convinced that this is an acute exacerbation (2) Chest pain in adult: Code(s): R07.9 - Chest pain, unspecified Status: Acute Assessment and Plan: * EKG does not have any ST elevation or abnomalities * Chest xray showed no acute abnormality * CTA showed no PE * Trops negative * Blood pressure stable * Echo EF 55-60% with grade 1 diastolic dysfunction * BNP 132 * Relieved with morphine * consider cardiology consult (3) Hyperkalemia: Code(s): E87.5 - Hyperkalemia Status: Acute Assessment and Plan: * Potassium 4.1 * Seems better today * Repeat dose of lasix * Could also be related to the constipation * Renal function is normal * Will continue to trend (4) Anemia: Code(s): D64.9 - Anemia, unspecified Status: Acute Assessment and Plan: * H/H 8.4/28.7 * Anemia labs Iron 38, TIBC 377,% saturation 10, transferrin 313, ferritin 7.92, B12 is greater than a 1000, folate 4.2 * increase iron supplementation b.i.d. * Transfuse if <7.0 * Trend labs (5) Tobacco abuse: Code(s): Z72.0 - Tobacco use Status: Acute Assessment and Plan: * Smoking cessation for >8 minutes * Smoking patch and gum (6) Hypertension: Code(s): I10 - Essential (primary) hypertension Status: Acute Assessment and Plan: * Current BP is 112/69 * BP was 150/83 upon arrival * Trend blood pressure * consider initiation of therapy if indicated (7) Hyperlipemia: Code(s): E78.5 - Hyperlipidemia, unspecified Status: Acute Assessment and Plan: * No current home therapy * Initiate atorvastatin 20mg PO daily * Lipid panel triglycerides 336, Cholesterol 255, LDL 145, HDL 48 (8) Diabetes: Code(s): E11.9 - Type 2 diabetes mellitus without complications Status: Acute Assessment and Plan: * Current glucose 234 * Hold home metformin and sitagliptin * Accu-Cheks a.c. HS * insulin sliding scale, increase to high scale * Add lantus 11 units at night * trend glucose * A1c 7.9 * adjust therapy as indicated * hypoglycemia protocol (9) Constipation: Code(s): K59.00 - Constipation, unspecified Status: Acute Assessment and Plan: * Miralax and senna on board (10) Hemoptysis: Code(s): R04.2 - Hemoptysis Status: Acute Assessment and Plan: * Complaints of coughing up blood * Culture being sent * No acute abnormality on chest xray * Continue to trend respiratory status * Could be related to fluid overload or possible COPD exacerbation and cough Time Spent With Patient Time with patient: Greater than 35 minutes Subjective Date/time seen: 09/27/21 11:15 Interval history: 09/27/21 1115 pa
[2021-09-27 11:31] LABS: Glucose Point of Care 276 mg/dl (65-105)
[2021-09-27] MEDS: FUROSEMIDE INJ 40 MG/4 ML VIAL IV PUSH (15:04)
[2021-09-27] MEDS: methylPREDNISolone SOD SUCC 40 MG VIAL IV PUSH (15:05)
[2021-09-27 16:50] LABS: Glucose Point of Care 329 mg/dl (65-105)
[2021-09-27] MEDS: FAMOTIDINE 20 MG/2 ML VIAL IV PUSH (17:22)
[2021-09-27] MEDS: MORPHINE SULFATE (*CRX) 2 MG/ML INJ IV PUSH ×2 (17:24→22:52)
[2021-09-27] MEDS: cloNIDine HCL 0.1 MG TABLET PO (19:49)
[2021-09-27] MEDS: AMITRIPTYLINE HCL 25 MG TABLET 50 MG PO (19:49)
[2021-09-27] MEDS: INSULIN GLARGINE (*BKC) 100 UNITS/ML 11 UNITS SUB-Q (19:49)
[2021-09-27] MEDS: QUEtiapine FUMARATE 100 MG TABLET 400 MG PO (19:50)
[2021-09-27] MEDS: rOPINIRole HCL 0.25 MG TABLET PO (19:50)
[2021-09-27] MEDS: CELECOXIB 100 MG CAPSULE PO (19:51)
[2021-09-27 20:44] LABS: Glucose Point of Care 415 mg/dl (65-105)
[2021-09-28] VITALS (24 sets, daily range): BP systolic 103–165; BP diastolic 61–73; PULSE 78–95; RESP 15–20; TEMP 35.8–36.2; O2SAT 94–97
[2021-09-28] MEDS: IPRATROPIUM BR 0.02% INH SOLN 0.5 MG/2.5 ML VIAL INHALATION ×7 (01:15→23:51)
[2021-09-28] MEDS: ALBUTEROL SULFATE NEB 2.5 MG/3 ML INH INHALATION ×7 (01:15→23:51)
[2021-09-28] MEDS: oxyCODONE/ACETAMINOPHEN (*CRX) 5-325 MG TABLET 1 TABLET PO ×2 (01:47→13:57)
[2021-09-28 06:48] LABS: Basophils Percent Auto 0.3 % (0.2-1.2); Hematocrit 28.9 % (37.0-47.0); Hemoglobin 8.7 g/dL (12.0-15.0); Immature Granulocyte Absolute 0.22 K/mm3 (0.00-0.031); Immature Granulocyte Percent A 1.9 % (0-0.5); Lymphocytes Percent Auto 12.8 % (18.3-44.2); Mean Corpuscular HGB Conc 30.1 g/dl (32-36); Mean Corpuscular Volume 86.5 fl (80-100); Mean Platelet Volume 10.2 fl (7.4-10.4); Monocytes Absolute Auto 0.8 K/mm3 (0.1-0.6); Monocytes Percent Auto 6.4 % (2.6-8.5); Neutrophils Absolute Auto 9.3 K/mm3 (1.3-6.7); Neutrophils Percent Auto 78.6 % (45.5-73.1); Platelet Count Result 357 k/mm3 (150-375); Red Blood Count 3.34 M/mm3 (4.2-5.4); Red Cell Distribution Width 20.7 % (11.5-14.5); White Blood Count 11.8 K/mm3 (4.5-10.0)
[2021-09-28 06:59] LABS: Alanine Aminotransferase 25 U/L (6-35); Albumin Level 4.4 g/dL (3.5-5.1); Alkaline Phosphatase 130 U/L (38-126); Anion Gap 12 mmol/L (8-16); Aspartate Amino Transferase 19 U/L (14-36); Bilirubin,Total 0.4 mg/dL (0.2-1.3); Blood Urea Nitrogen 22 mg/dL (7-17); Calcium 8.8 mg/dL (8.4-10.2); Carbon Dioxide 29 mmol/L (22-30); Chloride 94 mmol/L (98-107); Estimated CRCL calculation 51 ml/min; Estimated Glomerular Filt Rate 42; Glucose 313 mg/dL (65-110); Magnesium 2.1 mg/dL (1.6-2.3); Potassium 4.1 mmol/L (3.4-5.0); Sodium 135 mmol/L (137-145)
--- NOTE | 2021-09-28 07:45 | P.PNIM_ITS ---
Progress Note: A&P Assessment and Plan (1) COPD (chronic obstructive pulmonary disease): Code(s): J44.9 - Chronic obstructive pulmonary disease, unspecified Status: Acute Assessment and Plan: * Chest xray no acute cardiopulmonary disease * CTA shows no PE * Continue home Singulair * Neb treatments * Trend respiratory status * the steroid has seemed to help will decrease to 40 mg daily p.o. (2) Chest pain in adult: Code(s): R07.9 - Chest pain, unspecified Status: Acute Assessment and Plan: * EKG does not have any ST elevation or abnomalities * Chest xray showed no acute abnormality * CTA showed no PE * Trops negative * Blood pressure stable * Echo EF 55-60% with grade 1 diastolic dysfunction * BNP 132 * Relieved with morphine * consider cardiology consult (3) Hyperkalemia: Code(s): E87.5 - Hyperkalemia Status: Acute Assessment and Plan: * Potassium 4.1 * Seems better today * Repeat dose of lasix * Could also be related to the constipation * Renal function is normal * Will continue to trend (4) Anemia: Code(s): D64.9 - Anemia, unspecified Status: Acute Assessment and Plan: * H/H 11.6/36.1 * Anemia labs Iron 38, TIBC 377,% saturation 10, transferrin 313, ferritin 7.92, B12 is greater than a 1000, folate 4.2 * increase iron supplementation b.i.d. * Transfuse if <7.0 * Trend labs (5) Tobacco abuse: Code(s): Z72.0 - Tobacco use Status: Acute Assessment and Plan: * Smoking cessation for >8 minutes * Smoking patch and gum (6) Hypertension: Code(s): I10 - Essential (primary) hypertension Status: Acute Assessment and Plan: * Current BP is 103/61 * BP was 150/83 upon arrival * Trend blood pressure * consider initiation of therapy if indicated (7) Hyperlipemia: Code(s): E78.5 - Hyperlipidemia, unspecified Status: Acute Assessment and Plan: * Continue home medications * Lipid panel triglycerides 336, Cholesterol 255, LDL 145, HDL 48 (8) Diabetes: Code(s): E11.9 - Type 2 diabetes mellitus without complications Status: Acute Assessment and Plan: * Current glucose 313 * Hold home metformin and sitagliptin * Accu-Cheks a.c. HS * insulin sliding scale, increase to high scale * Add lantus 11 units at night * trend glucose * A1c 7.9 * adjust therapy as indicated * hypoglycemia protocol (9) Constipation: Code(s): K59.00 - Constipation, unspecified Status: Acute Assessment and Plan: * Miralax and senna on board (10) Hemoptysis: Code(s): R04.2 - Hemoptysis Status: Acute Assessment and Plan: * Complaints of coughing up blood * Culture being sent * No acute abnormality on chest xray * Continue to trend respiratory status * Could be related to fluid overload or possible COPD exacerbation and cough Time Spent With Patient Time with patient: Greater than 35 minutes Subjective Date/time seen: 09/28/21744 Interval history: 09/28/21744 Patient was lying in bed. Patient stated she feels very weak and tired. She also states that she is very short of breath with any ex
--- NOTE | 2021-09-28 07:45 | PM.IMPN ---
Progress Note: A&P Assessment and Plan (1) COPD (chronic obstructive pulmonary disease): Code(s): J44.9 - Chronic obstructive pulmonary disease, unspecified Status: Acute Assessment and Plan: Chest xray no acute cardiopulmonary disease CTA shows no PE Continue home Singulair Neb treatments Trend respiratory status the steroid has seemed to help will decrease to 40 mg daily p.o. (2) Chest pain in adult: Code(s): R07.9 - Chest pain, unspecified Status: Acute Assessment and Plan: EKG does not have any ST elevation or abnomalities Chest xray showed no acute abnormality CTA showed no PE Trops negative Blood pressure stable Echo EF 55-60% with grade 1 diastolic dysfunction BNP 132 Relieved with morphine consider cardiology consult (3) Hyperkalemia: Code(s): E87.5 - Hyperkalemia Status: Acute Assessment and Plan: Potassium 4.1 Seems better today Repeat dose of lasix Could also be related to the constipation Renal function is normal Will continue to trend (4) Anemia: Code(s): D64.9 - Anemia, unspecified Status: Acute Assessment and Plan: H/H 11.6/36.1 Anemia labs Iron 38, TIBC 377,% saturation 10, transferrin 313, ferritin 7.92, B12 is greater than a 1000, folate 4.2 increase iron supplementation b.i.d. Transfuse if <7.0 Trend labs (5) Tobacco abuse: Code(s): Z72.0 - Tobacco use Status: Acute Assessment and Plan: Smoking cessation for >8 minutes Smoking patch and gum (6) Hypertension: Code(s): I10 - Essential (primary) hypertension Status: Acute Assessment and Plan: Current BP is 103/61 BP was 150/83 upon arrival Trend blood pressure consider initiation of therapy if indicated (7) Hyperlipemia: Code(s): E78.5 - Hyperlipidemia, unspecified Status: Acute Assessment and Plan: Continue home medications Lipid panel triglycerides 336, Cholesterol 255, LDL 145, HDL 48 (8) Diabetes: Code(s): E11.9 - Type 2 diabetes mellitus without complications Status: Acute Assessment and Plan: Current glucose 313 Hold home metformin and sitagliptin Accu-Cheks a.c. HS insulin sliding scale, increase to high scale Add lantus 11 units at night trend glucose A1c 7.9 adjust therapy as indicated hypoglycemia protocol (9) Constipation: Code(s): K59.00 - Constipation, unspecified Status: Acute Assessment and Plan: Miralax and senna on board (10) Hemoptysis: Code(s): R04.2 - Hemoptysis Status: Acute Assessment and Plan: Complaints of coughing up blood Culture being sent No acute abnormality on chest xray Continue to trend respiratory status Could be related to fluid overload or possible COPD exacerbation and cough Time Spent With Patient Time with patient: Greater than 35 minutes Subjective Date/time seen: 09/28/21744 Interval history: 09/28/21744 Patient was lying in bed. Patient stated she feels very weak and tired. She also states that she is very short of breath with any exertion and needs oxygen when she exerts herself. Will continue her steroids for the full 5 doses. Labs seem to be stable however she is exhibiting hyperglycemia which is related to the steroids. She denies any chest pain, nausea, or vomiting. She is still very short of breath with activity. 09/27/21 1115 patient was sleeping when I went to evaluate her. Patient stated that she is just very tired and weak and feels worse today. She also states that her breathing is a little worse as well. Her biggest concern though was she coughs up blood. She denies any chest pain nausea or vomiting. Will give her 1 dose of steroids and sputum culture was sent for evaluation. 09/26/21 0745 Patient
[2021-09-28 08:02] LABS: Glucose Point of Care 303 mg/dl (65-105)
[2021-09-28] MEDS: LOSARTAN POTASSIUM 50 MG TABLET PO (08:26)
[2021-09-28] MEDS: ENOXAPARIN 40 MG/0.4 ML SYRINGE SUB-Q (08:26)
[2021-09-28] MEDS: ATORVASTATIN 20 MG TABLET PO (08:26)
[2021-09-28] MEDS: MONTELUKAST SODIUM 10 MG TABLET PO (08:26)
[2021-09-28] MEDS: QUEtiapine FUMARATE 25 MG TABLET 50 MG PO (08:27)
[2021-09-28] MEDS: FERROUS SULFATE 324 MG TABLET PO ×2 (08:27→16:35)
[2021-09-28] MEDS: MAGNESIUM OXIDE 400 MG TABLET PO (08:27)
[2021-09-28] MEDS: SENNA/DOCUSATE SODIUM TABLET 1 TAB PO (08:27)
[2021-09-28] MEDS: predniSONE 20 MG TABLET 40 MG PO (08:28)
[2021-09-28] MEDS: DICYCLOMINE HCL 10 MG CAPSULE PO ×2 (08:28→16:35)
[2021-09-28] MEDS: ESCITALOPRAM OXALATE 10 MG TABLET 20 MG PO (08:28)
[2021-09-28] MEDS: ASPIRIN 81 MG CHEWABLE TABLET PO (08:28)
[2021-09-28] MEDS: FUROSEMIDE 40 MG TABLET PO (08:28)
[2021-09-28] MEDS: PANTOPRAZOLE 40 MG TABLET PO ×2 (08:29→16:36)
[2021-09-28] MEDS: polyethylene glycoL 3350 17 GM POWD.PACK PO (08:29)
[2021-09-28] MEDS: dilTIAZem HCL CD 180 MG CAP.ER.24H 360 MG PO (08:29)
[2021-09-28] MEDS: INSULIN ASPART (*BKC) 100 UNITS/ML SUB-Q ×6 (08:30→16:41)
[2021-09-28 11:40] LABS: Glucose Point of Care 366 mg/dl (65-105)
[2021-09-28 16:19] LABS: Glucose Point of Care 364 mg/dl (65-105)
[2021-09-28] MEDS: MORPHINE SULFATE (*CRX) 2 MG/ML INJ IV PUSH ×2 (16:36→21:39)
[2021-09-28] MEDS: CELECOXIB 100 MG CAPSULE PO (20:24)
[2021-09-28] MEDS: AMITRIPTYLINE HCL 25 MG TABLET 50 MG PO (20:24)
[2021-09-28] MEDS: rOPINIRole HCL 0.25 MG TABLET PO (20:24)
[2021-09-28] MEDS: QUEtiapine FUMARATE 100 MG TABLET 400 MG PO (20:24)
[2021-09-28] MEDS: cloNIDine HCL 0.1 MG TABLET PO (20:24)
[2021-09-28] MEDS: INSULIN GLARGINE (*BKC) 100 UNITS/ML 11 UNITS SUB-Q (20:26)
[2021-09-28 20:57] LABS: Glucose Point of Care 409 mg/dl (65-105)
[2021-09-28] MEDS: INSULIN ASPART (*BKC) 100 UNITS/ML 6 UNITS SUB-Q (21:04)
[2021-09-28] MEDS: HYDROcodone/acetaminophen (*CRX) 5-325 MG TABLET 1 TAB PO (23:14)
[2021-09-29] VITALS (17 sets, daily range): BP systolic 99–130; BP diastolic 63–77; PULSE 77–122; RESP 14–20; TEMP 35.7–36.6; O2SAT 92–99
[2021-09-29] MEDS: oxyCODONE/ACETAMINOPHEN (*CRX) 5-325 MG TABLET 1 TABLET PO ×2 (01:38→12:52)
[2021-09-29] MEDS: ALBUTEROL SULFATE NEB 2.5 MG/3 ML INH INHALATION ×3 (03:58→13:22)
[2021-09-29] MEDS: IPRATROPIUM BR 0.02% INH SOLN 0.5 MG/2.5 ML VIAL INHALATION ×3 (03:58→13:22)
[2021-09-29 06:44] LABS: Basophils Percent Auto 0.3 % (0.2-1.2); Eosinophils Percent Auto 0.2 % (0-4.4); Hematocrit 28.5 % (37.0-47.0); Hemoglobin 8.4 g/dL (12.0-15.0); Immature Granulocyte Absolute 0.21 K/mm3 (0.00-0.031); Immature Granulocyte Percent A 1.8 % (0-0.5); Lymphocytes Percent Auto 19.5 % (18.3-44.2); Mean Corpuscular HGB Conc 29.5 g/dl (32-36); Mean Corpuscular Hemoglobin 25.5 pg (26-34); Mean Corpuscular Volume 86.4 fl (80-100); Mean Platelet Volume 10.3 fl (7.4-10.4); Monocytes Absolute Auto 0.7 K/mm3 (0.1-0.6); Neutrophils Absolute Auto 8.6 K/mm3 (1.3-6.7); Neutrophils Percent Auto 72.2 % (45.5-73.1); Platelet Count Result 344 k/mm3 (150-375); Red Cell Distribution Width 20.8 % (11.5-14.5); White Blood Count 11.8 K/mm3 (4.5-10.0)
[2021-09-29 06:59] LABS: Alanine Aminotransferase 20 U/L (6-35); Alkaline Phosphatase 119 U/L (38-126); Anion Gap 9 mmol/L (8-16); Aspartate Amino Transferase 16 U/L (14-36); Bilirubin,Total 0.4 mg/dL (0.2-1.3); Blood Urea Nitrogen 21 mg/dL (7-17); Calcium 9.4 mg/dL (8.4-10.2); Carbon Dioxide 31 mmol/L (22-30); Chloride 94 mmol/L (98-107); Estimated CRCL calculation 54 ml/min; Estimated Glomerular Filt Rate 46; Glucose 215 mg/dL (65-110); Magnesium 2.1 mg/dL (1.6-2.3); Potassium 3.6 mmol/L (3.4-5.0); Sodium 134 mmol/L (137-145)
[2021-09-29 07:40] LABS: Glucose Point of Care 226 mg/dl (65-105)
[2021-09-29 07:46] LABS: Platelet Estimate Adequate (Adequate)
[2021-09-29 07:47] LABS: Anisocytosis 1+ (NORMAL); Hypochromasia 1+ (NORMAL)
[2021-09-29] MEDS: INSULIN ASPART (*BKC) 100 UNITS/ML SUB-Q ×6 (08:37→17:12)
[2021-09-29] MEDS: polyethylene glycoL 3350 17 GM POWD.PACK PO (08:37)
[2021-09-29] MEDS: QUEtiapine FUMARATE 25 MG TABLET 50 MG PO (08:39)
[2021-09-29] MEDS: SENNA/DOCUSATE SODIUM TABLET 1 TAB PO (08:39)
[2021-09-29] MEDS: ESCITALOPRAM OXALATE 10 MG TABLET 20 MG PO (08:39)
[2021-09-29] MEDS: MAGNESIUM OXIDE 400 MG TABLET PO (08:39)
[2021-09-29] MEDS: FUROSEMIDE 40 MG TABLET PO (08:39)
[2021-09-29] MEDS: FERROUS SULFATE 324 MG TABLET PO ×2 (08:39→16:47)
[2021-09-29] MEDS: PANTOPRAZOLE 40 MG TABLET PO ×2 (08:39→16:47)
[2021-09-29] MEDS: ENOXAPARIN 40 MG/0.4 ML SYRINGE SUB-Q (08:40)
[2021-09-29] MEDS: MONTELUKAST SODIUM 10 MG TABLET PO (08:40)
[2021-09-29] MEDS: LOSARTAN POTASSIUM 50 MG TABLET PO (08:40)
[2021-09-29] MEDS: DICYCLOMINE HCL 10 MG CAPSULE PO ×2 (08:40→16:47)
[2021-09-29] MEDS: ATORVASTATIN 20 MG TABLET PO (08:40)
[2021-09-29] MEDS: CYANOCOBALAMIN INJ 1,000 MCG/ML VIAL 1000 MCG SUB-Q (08:40)
[2021-09-29] MEDS: predniSONE 20 MG TABLET 40 MG PO (08:40)
[2021-09-29] MEDS: dilTIAZem HCL CD 180 MG CAP.ER.24H 360 MG PO (08:40)
[2021-09-29] MEDS: ASPIRIN 81 MG CHEWABLE TABLET PO (08:40)
[2021-09-29 11:24] LABS: Glucose Point of Care 272 mg/dl (65-105)
--- NOTE | 2021-09-29 13:15 | PM.DS ---
DS: Admitting Diagnosis Discharge Date 09/29/21 1315 Admitting Diagnosis COPD exacerbation DS: Discharge Diagnosis Discharge Diagnosis (1) COPD (chronic obstructive pulmonary disease): Code(s): J44.9 - Chronic obstructive pulmonary disease, unspecified Status: Acute Assessment and Plan: Chest xray no acute cardiopulmonary disease CTA shows no PE Continue home Singulair Neb treatments Trend respiratory status the steroid has seemed to help will decrease to 40 mg daily p.o. (2) Chest pain in adult: Code(s): R07.9 - Chest pain, unspecified Status: Acute Assessment and Plan: EKG does not have any ST elevation or abnomalities Chest xray showed no acute abnormality CTA showed no PE Trops negative Blood pressure stable Echo EF 55-60% with grade 1 diastolic dysfunction BNP 132 Relieved with morphine consider cardiology consult (3) Hyperkalemia: Code(s): E87.5 - Hyperkalemia Status: Acute Assessment and Plan: Potassium 4.1 Seems better today Repeat dose of lasix Could also be related to the constipation Renal function is normal Will continue to trend (4) Anemia: Code(s): D64.9 - Anemia, unspecified Status: Acute Assessment and Plan: H/H 11.6/36.1 Anemia labs Iron 38, TIBC 377,% saturation 10, transferrin 313, ferritin 7.92, B12 is greater than a 1000, folate 4.2 increase iron supplementation b.i.d. Transfuse if <7.0 Trend labs (5) Tobacco abuse: Code(s): Z72.0 - Tobacco use Status: Acute Assessment and Plan: Smoking cessation for >8 minutes Smoking patch and gum (6) Hypertension: Code(s): I10 - Essential (primary) hypertension Status: Acute Assessment and Plan: Current BP is 103/61 BP was 150/83 upon arrival Trend blood pressure consider initiation of therapy if indicated (7) Hyperlipemia: Code(s): E78.5 - Hyperlipidemia, unspecified Status: Acute Assessment and Plan: Continue home medications Lipid panel triglycerides 336, Cholesterol 255, LDL 145, HDL 48 (8) Diabetes: Code(s): E11.9 - Type 2 diabetes mellitus without complications Status: Acute Assessment and Plan: Current glucose 313 Hold home metformin and sitagliptin Accu-Cheks a.c. HS insulin sliding scale, increase to high scale Add lantus 11 units at night trend glucose A1c 7.9 adjust therapy as indicated hypoglycemia protocol (9) Constipation: Code(s): K59.00 - Constipation, unspecified Status: Acute Assessment and Plan: Miralax and senna on board (10) Hemoptysis: Code(s): R04.2 - Hemoptysis Status: Acute Assessment and Plan: Complaints of coughing up blood Culture being sent No acute abnormality on chest xray Continue to trend respiratory status Could be related to fluid overload or possible COPD exacerbation and cough DS: Summary Hospital Course Hospital Course: patient is a 56-year-old female with a past medical history of hypertension, diabetes, COPD who presented to the ED with complaints of shortness of breath and chest pain. Typical chest pain workup was performed and did not show any abnormalities with a normal EKG, troponins were negative x2, CTA showed no PE, echo was EF of 55-60% with grade 1 diastolic dysfunction, BNP of 132. Short of breath was worked up and showed no acute cardiopulmonary disease per chest x-ray and CT shows no PE. Singular at home was continued along with neb treatments. She had also been complaining of an increased cough with increased sputum and shortness of breath. Steroids were initiated and patient has been doing okay since then. She also had some issues with constipation. Anemia labs were drawn since the patient did come in with a low H&H and iron wa
--- NOTE | 2021-09-29 13:15 | P.DS_ITS ---
DS: Admitting Diagnosis Discharge Date 09/29/21 1315 Admitting Diagnosis COPD exacerbation DS: Discharge Diagnosis Discharge Diagnosis (1) COPD (chronic obstructive pulmonary disease): Code(s): J44.9 - Chronic obstructive pulmonary disease, unspecified Status: Acute Assessment and Plan: * Chest xray no acute cardiopulmonary disease * CTA shows no PE * Continue home Singulair * Neb treatments * Trend respiratory status * the steroid has seemed to help will decrease to 40 mg daily p.o. (2) Chest pain in adult: Code(s): R07.9 - Chest pain, unspecified Status: Acute Assessment and Plan: * EKG does not have any ST elevation or abnomalities * Chest xray showed no acute abnormality * CTA showed no PE * Trops negative * Blood pressure stable * Echo EF 55-60% with grade 1 diastolic dysfunction * BNP 132 * Relieved with morphine * consider cardiology consult (3) Hyperkalemia: Code(s): E87.5 - Hyperkalemia Status: Acute Assessment and Plan: * Potassium 4.1 * Seems better today * Repeat dose of lasix * Could also be related to the constipation * Renal function is normal * Will continue to trend (4) Anemia: Code(s): D64.9 - Anemia, unspecified Status: Acute Assessment and Plan: * H/H 11.6/36.1 * Anemia labs Iron 38, TIBC 377,% saturation 10, transferrin 313, ferritin 7.92, B12 is greater than a 1000, folate 4.2 * increase iron supplementation b.i.d. * Transfuse if <7.0 * Trend labs (5) Tobacco abuse: Code(s): Z72.0 - Tobacco use Status: Acute Assessment and Plan: * Smoking cessation for >8 minutes * Smoking patch and gum (6) Hypertension: Code(s): I10 - Essential (primary) hypertension Status: Acute Assessment and Plan: * Current BP is 103/61 * BP was 150/83 upon arrival * Trend blood pressure * consider initiation of therapy if indicated (7) Hyperlipemia: Code(s): E78.5 - Hyperlipidemia, unspecified Status: Acute Assessment and Plan: * Continue home medications * Lipid panel triglycerides 336, Cholesterol 255, LDL 145, HDL 48 (8) Diabetes: Code(s): E11.9 - Type 2 diabetes mellitus without complications Status: Acute Assessment and Plan: * Current glucose 313 * Hold home metformin and sitagliptin * Accu-Cheks a.c. HS * insulin sliding scale, increase to high scale * Add lantus 11 units at night * trend glucose * A1c 7.9 * adjust therapy as indicated * hypoglycemia protocol (9) Constipation: Code(s): K59.00 - Constipation, unspecified Status: Acute Assessment and Plan: * Miralax and senna on board (10) Hemoptysis: Code(s): R04.2 - Hemoptysis Status: Acute Assessment and Plan: * Complaints of coughing up blood * Culture being sent * No acute abnormality on chest xray * Continue to trend respiratory status * Could be related to fluid overload or possible COPD exacerbation and cough DS: Summary Hospital Course Hospital Course: patient is a 56-year-old female with a past medical history of hypertension, diabetes, COPD who presented to the ED with complaints of sh
[2021-09-29] MEDS: BISACODYL 10 MG SUPPOSITORY RECTAL (14:13)
--- NOTE | 2021-09-29 14:59 | PCRCNOTE ---
HOME O2 EVAL COMPLETE, NO REQUIREMENTS
[2021-09-29 16:26] LABS: Glucose Point of Care 405 mg/dl (65-105)
[2021-09-29] MEDS: INSULIN ASPART (*BKC) 100 UNITS/ML 10 UNITS SUB-Q (17:12)
== END 2021-09-29 18:25 | disposition home or self-care (01) | DRG 203 ==
LOC: ANHED 06:22 → ANHIMU 06:43 → ANH3MEDSUR 09-26 15:57
PROVIDERS: Admitting Provider Internal Medicine; Emergency Provider Emergency Medicine; PCP Emergency Medicine; Visit Provider Nurse Practitioner
DX: R07.9 Chest pain, unspecified (principal); R04.2 Hemoptysis; J44.9 Chronic obstructive pulmonary disease, unspecified; I10 Essential (primary) hypertension; E11.65 Type 2 diabetes mellitus with hyperglycemia; T38.0X5A Adverse effect of glucocorticoids and synthetic analogues, initial encounter; D64.9 Anemia, unspecified; E66.9 Obesity, unspecified; E87.5 Hyperkalemia; E78.5 Hyperlipidemia, unspecified; F17.210 Nicotine dependence, cigarettes, uncomplicated; F41.9 Anxiety disorder, unspecified; F32.9 Major depressive disorder, single episode, unspecified; G89.29 Other chronic pain; G47.33 Obstructive sleep apnea (adult) (pediatric); K59.00 Constipation, unspecified; M19.90 Unspecified osteoarthritis, unspecified site; Z90.710 Acquired absence of both cervix and uterus; Z86.73 Personal history of transient ischemic attack (TIA), and cerebral infarction without residual deficits; Z79.84 Long term (current) use of oral hypoglycemic drugs; Z98.2 Presence of cerebrospinal fluid drainage device; Z68.41 Body mass index [BMI] 40.0-44.9, adult; Z79.82 Long term (current) use of aspirin
CPT/HCPCS: 36415; 71045; 71275; 80053; 80061; 82607; 82728; 82746; 82948; 83036; 83540; 83550; 83735; 83880; 84132; 84443; 84466; 84484; 85025; 85046; 85610; 85730; 87070; 87205; 93005; 93306; 94618; 94640; 96372; 96374; 96375; 96376; 99285; A9270; G0378; G0379; J1650; J1815; J1940; J2270; J2405; J2920; J3420; J7512; Q9967

== ENCOUNTER 2021-10-27 14:20 | Outpatient (CLI) | payer OTHER, SELFPAY ==
[2021-10-27 14:53] LABS: Basophils Absolute Auto 0.1 K/mm3 (0.0-0.1); Basophils Percent Auto 0.5 % (0.2-1.2); Eosinophils Percent Auto 0.2 % (0-4.4); Hemoglobin 10.6 g/dL (12.0-15.0); Immature Granulocyte Percent A 0.8 % (0-0.5); Lymphocytes Absolute Auto 2.09 K/mm3 (0.9-3.2); Lymphocytes Percent Auto 17.1 % (18.3-44.2); Mean Corpuscular HGB Conc 30.3 g/dl (32-36); Mean Corpuscular Hemoglobin 26.4 pg (26-34); Mean Corpuscular Volume 87.3 fl (80-100); Mean Platelet Volume 9.7 fl (7.4-10.4); Monocytes Absolute Auto 0.9 K/mm3 (0.1-0.6); Neutrophils Absolute Auto 9.1 K/mm3 (1.3-6.7); Neutrophils Percent Auto 74.4 % (45.5-73.1); Platelet Count Result 417 k/mm3 (150-375); Red Blood Count 4.01 M/mm3 (4.2-5.4); Red Cell Distribution Width 18.8 % (11.5-14.5); White Blood Count 12.2 K/mm3 (4.5-10.0)
[2021-10-27 16:36] LABS: Iron 26 ug/dL (37-170)
[2021-10-27 16:37] LABS: Alanine Aminotransferase 21 U/L (6-35); Albumin Level 4.6 g/dL (3.5-5.1); Alkaline Phosphatase 126 U/L (38-126); Anion Gap 13 mmol/L (8-16); Aspartate Amino Transferase 20 U/L (14-36); Bilirubin,Total 0.3 mg/dL (0.2-1.3); Blood Urea Nitrogen 16 mg/dL (7-17); Calcium 10.1 mg/dL (8.4-10.2); Carbon Dioxide 25 mmol/L (22-30); Chloride 100 mmol/L (98-107); Estimated Glomerular Filt Rate 51; Glucose 117 mg/dL (65-110); Potassium 3.8 mmol/L (3.4-5.0); Sodium 138 mmol/L (137-145)
[2021-10-27 16:46] LABS: Percent Iron Saturation 6 % (20-50)
[2021-10-27 17:49] LABS: Folic Acid 4.9 ng/mL (2.76->20); Vitamin B12 > 1000.0 pg/mL (239-931)
== END 2021-10-27 14:21 | disposition home or self-care (01) ==
LOC: ANHLAB 14:22
PROVIDERS: PCP Emergency Medicine; Visit Provider Internal Medicine Hematology & Oncology
DX: D64.9 Anemia, unspecified (principal)
CPT/HCPCS: 36415; 80053; 82607; 82728; 82746; 83540; 83550; 85025

== ENCOUNTER 2021-11-05 06:38 | Outpatient (CLI) | payer OTHER, SELFPAY ==
--- NOTE | ~2021-11-05 | CT_ITS ---
EXAMINATION: CT abdomen pelvis w con INDICATION: Abdominal pain TECHNIQUE: Computed tomographic images of the abdomen and pelvis were obtained after the administrati on of 100 cc of Omnipaque 350 intravenous contrast. The dose-length product (DLP) was 1397.80 mGy-cm. Automated exposure control and iterative reconstruction technique were employed. COMPARISON: 01/02/2020, 04/20/2015 FINDINGS: The lung bases are clear. The heart size is normal. The liver, spleen, gallbladder, and adr enal glands are normal. There is a stable 1.8 cm cystic lesion in the body of the pancreas without id entifiable communication with the main pancreatic duct. There is an 11 mm cyst of the left kidney. Th e right kidney is unremarkable. No pathologically enlarged abdominal or pelvic lymph nodes are identi fied. There is calcified atherosclerosis of the aorta and many of the other arteries. There is no latoya e intraperitoneal gas or evidence of bowel obstruction. The appendix is normal. Ventriculoperitoneal shunt catheter tubing courses through the anterior abdominal wall on the left and ends in the right m id abdomen. A chronic compression fracture of L1 is again noted. There is severe lumbar spondylosis a t L5-S1. IMPRESSION: 1. No CT correlate for the patient's symptoms. 2. Stable cystic lesion in the body of the pancreas with differential as previously described. Follow -up pancreas protocol CT or MRI in one year is recommended. Reviewed, dictated and finalized at location B. IMPRESSION: 1. No CT correlate for the patient's symptoms. 2. Stable cystic lesion in the body of the pancreas with differential as previo usly described. Follow-up pancreas protocol CT or MRI in one year is recommendtania tariq
--- NOTE | ~2021-11-05 | US_ITS ---
EXAMINATION: US soft tissue head and neck DATE: 11/05/2021 07:36 INDICATION: Lymphadenopathy. TECHNIQUE: Multiple grayscale and Doppler ultrasound images of the neck were obtained. COMPARISON: None FINDINGS: There are normal submandibular lymph nodes in the patient's area of concern. IMPRESSION: 1. Normal submandibular lymph nodes in the patient's area of concern. Reviewed, dictated and finalized at location A.
[2021-11-05 08:30] LABS: Alanine Aminotransferase 20 U/L (6-35); Albumin Level 4.1 g/dL (3.5-5.1); Alkaline Phosphatase 118 U/L (38-126); Anion Gap 11 mmol/L (8-16); Aspartate Amino Transferase 18 U/L (14-36); Bilirubin,Total 0.2 mg/dL (0.2-1.3); Blood Urea Nitrogen 18 mg/dL (7-17); Calcium 9.7 mg/dL (8.4-10.2); Carbon Dioxide 26 mmol/L (22-30); Chloride 100 mmol/L (98-107); Cholesterol 198 mg/dL (0-200); Estimated Glomerular Filt Rate 51; Glucose 171 mg/dL (65-110); HDL Direct 41 mg/dL; Potassium 3.3 mmol/L (3.4-5.0); Sodium 137 mmol/L (137-145); Triglycerides 225 mg/dL (<150)
[2021-11-05 08:42] LABS: LDL Cholesterol Direct 103 mg/dL
[2021-11-05 09:03] LABS: Free T4 Free Thyroxine 0.94 ng/mL (0.78-2.19)
[2021-11-05 09:10] LABS: Hemoglobin A1C 7.9 % (<5.7)
[2021-11-05 09:49] LABS: Folic Acid 3.5 ng/mL (2.76->20); Vitamin B12 > 1000.0 pg/mL (239-931)
== END 2021-11-05 06:39 | disposition home or self-care (01) ==
PROVIDERS: PCP Emergency Medicine; Referring Provider Internal Medicine Endocrinology, Diabetes & Metabolism; Visit Provider Internal Medicine Hematology & Oncology
DX: R10.9 Unspecified abdominal pain (principal); K86.2 Cyst of pancreas; R59.1 Generalized enlarged lymph nodes; E78.5 Hyperlipidemia, unspecified; E53.8 Deficiency of other specified B group vitamins
CPT/HCPCS: 36415; 74177; 76536; 80053; 80061; 82248; 82607; 82746; 83036; 84439; 84443; Q9967

== ENCOUNTER 2021-12-07 13:17 | Outpatient (CLI) | payer OTHER, SELFPAY ==
--- NOTE | 2021-12-19 13:18 | WPDPFTINT ---
PFT Procedure Performed PFT Procedure Performed Spirometry with Pre/Post Bronchodilator Plethysmography (Lung Vol) Diffusing Cap (DLCO) Flow Vol Loop PFT Interpretation DOS: 12/07/2021 REQUESTING: Jany Hernandez [facility] REASON FOR TESTING: COPD PULMONARY FUNCTION TESTS Results are reliable and reproducible. Spirometry: Pre bronchodilator FEV1 is 1.99 L, 82% predicted. Pre bronchodilator FVC is 2.97 L, 98% predicted. The FEV1/FVC is 67%, mildly decreased consistent with airflow obstruction. After bronchodilator administration there was a 16% increase in the FVC, 3.46 L, 490 mL, 114% predicted. There is a 5% increase in the FEV1, 2.09 L, 86% predicted. Lung volumes: Total lung capacity 117% predicted, 5.52 L. residual volume is 2.55 L, 142% predicted consistent with moderate air trapping. RV/TLC is increased, 46%. Airway resistance increased 177% predicted. Diffusion: DLCO 11.3 ml/min/mmHg, 53% predicted. DLCO/VA is 2.43 ml/min/mmHg/L, 53% predicted. This is moderately reduced and does not correct for alveolar volume. Flow volume loop: Unremarkable. IMPRESSION: This spirometry shows mild airflow obstruction with good response to bronchodilator with a 16% increase in the FVC, moderate hyperinflation and moderate diffusion impairment. There is no prior study for comparison. Evangelina Koehler MD
--- NOTE | 2021-12-19 13:25 | WPDSIXMINUTE ---
Six Minute Walk Procedure Procedure Performed Pulmonary Stress Test (6 min walk) Six Minute Walk Six Minute Walk: DOS: 12/07/2021 REQUESTING: HAYLEY Hardy-JASPER REASON FOR TESTING: Exertional dyspnea SIX MINUTE WALK This test was conducted per ATS standards. The patient was on room air during testing. Initial saturation 93% and blood pressure was 118/82. The patient was short of breath during the entire walk. She used her walker for stability. She completed 3 laps, 300 ft, 91 point 4 m. She had 10/10 dyspnea and 10/10 fatigue at the end of the test. Saturation increased to 97%. Pulse increased to 103 5 during the walk. During recovery saturation was maintained at 95% and pulse was 93. IMPRESSION: This study shows no desaturation with exertion. She does not qualify for oxygen with exertion. Distance walked is much less than expected for age, 91.4 meters. Heart rate response is normal. Clinical correlation recommended.
== END 2021-12-07 13:18 | disposition home or self-care (01) ==
LOC: ANHPFT 13:23
PROVIDERS: Visit Provider Nurse Practitioner
DX: J44.9 Chronic obstructive pulmonary disease, unspecified (principal)
CPT/HCPCS: 94060; 94618; 94726; 94729

== ENCOUNTER 2021-12-11 21:19 | Emergency (ER) | payer OTHER, SELFPAY ==
--- NOTE | ~2021-12-11 | CT_ITS ---
EXAMINATION: CT soft tissue neck w con DATE: 12/12/2021 00:54 INDICATION: Enlarged chin abscess TECHNIQUE: Computed tomography (CT) of the neck was performed with 75 mL Omnipaque-350 intravenous co ntrast. Automated exposure control and iterative reconstruction technique were employed. The dose-marshall gth product was 560.94 mGy-cm. COMPARISON: None FINDINGS: There is stranding in the subcutaneous fat surrounding a 1.9 x 2.1 x 1.5 cm thick-walled midline subm ental abscess. There is osteolysis extending through a large portion of the mandible deep to the left canine and first premolar extending across the midline to the level of the posterior most left molar with associated periapical lucency surrounding the right teeth in this region. There is central scle rosis within this region of lucency as well as a lucent tract extending through the caudal aspect of the midline of the mandible to the region of the abscess. Constellation of findings would be consiste nt with chronic osteomyelitis with central and fluid/necrotic bone and a sinus tract communicating wi th the submental abscess. Mildly prominent but still normal-sized likely reactive bilateral submandibular and level 2 jugular c michael lymphadenopathy. Orbits are normal. Paranasal sinuses, middle ear cavities and mastoid air cells are clear. Bilateral parotid and submandibular glands are normal. 1.6 cm heterogeneously enhancing l eft thyroid nodule. Mild paraseptal predominant emphysema at the apices of the lungs. Chronic left oc cipital drainage catheter extending into what appears to be a large arachnoid cyst along the floor of the posterior fossa and extending caudally through the foramen magnum which appears exerts mass effe ct upon the posterior margin of the lingula and proximal cord. IMPRESSION: 1. Chronic osteomyelitis with likely osteonecrosis involving much of the left mandibular ramus and ex tending across midline to the anterior left mandible with infiltrating sinus tract near the midline c ommunicate with a 1.9 x 2.1 x 1.[address] Higuera discussed these findings with Dr Scottie Gutierrez at 1:30 PM. 2. 1.6 cm left thyroid nodule. Recommend follow-up thyroid ultrasound for risk stratification. 3. Left occipital drainage catheter extending to a chronic posterior fossa arachnoid cyst. 4. Mild emphysema. Reviewed, dictated and finalized at location A. IMPRESSION: 1. Chronic osteomyelitis with likely osteonecrosis involving much of the left m andibular ramus and extending across midline to the anterior left mandible with infiltrating sinus tract near the midline communicate with a 1.9 x 2.1 x 1.5 c m submental abscess. Dr. Higuera discussed these findings with Dr. Gutierrez at 1: 30 PM. 2. 1.6 cm left thyroid nodule. Recommend follow-up thyroid ultrasound for risk stratification. 3. Left occipital drainage catheter extending to a chronic posterior fossa arac hnoid cyst. 4. Mild emphysema.
[2021-12-11 21:24] VITALS: BP 142/77; PULSE 103; RESP 18; TEMP 36.8; O2SAT 99
[2021-12-11 22:15] VITALS: BP 142/80; PULSE 107; RESP 18; O2SAT 97
--- NOTE | 2021-12-11 22:51 | ED.SKABFB ---
HPI - Skin/Abscess/Foreign Bdy General Chief complaint: Skin/Abscess/Foreign Body Stated complaint: chin wound/abscess Time Seen by Provider: 12/11/21 22:03 History of Present Illness HPI narrative: Patient is a 56-year-old female with a history of diabetes, hypertension, hyperlipidemia, tobacco use presenting with an abscess. Patient states that for the last 2 days she has had an abscess under her chin that has continued to grow. States that the pain has continued to worsen despite taking hydrocodone. States that she has significant pain with swallowing, talking. Denies dyspnea or difficulty breathing. Patient states that she had a small abscess on her chin several months ago that her PCP treated with Keflex. States that since that time she has been doing well. She denies fevers or chills, headache, chest pain, shortness of breath, abdominal pain, nausea or vomiting, leg swelling. Related Data Home Medications Medication Instructions Recorded Confirmed alendronate 70 mg tablet 70 mg PO WEEKLY 12/09/19 12/10/21 montelukast 10 mg tablet 10 mg PO DAILY 12/09/19 12/10/21 (Singulair) metformin 500 mg tablet 750 mg PO DAILY 06/07/21 12/10/21 clonidine HCl 0.1 mg tablet 0.1 mg PO HS 09/25/21 12/10/21 dicyclomine 10 mg capsule 10 mg PO BID 09/25/21 12/10/21 furosemide 40 mg tablet 40 mg PO DAILY 09/25/21 12/10/21 losartan 50 mg tablet 50 mg PO DAILY 09/25/21 12/10/21 metoclopramide HCl 10 mg tablet 10 mg PO TID 09/25/21 12/10/21 albuterol sulfate 90 mcg/actuation 2 puff inhalation QID PRN 12/10/21 12/10/21 aerosol inhaler (ProAir HFA) Shortness Of Breath albuterol sulfate 90 mcg/actuation 2 puff inhalation QID PRN 12/10/21 12/10/21 aerosol inhaler (Ventolin HFA) Shortness Of Breath carvedilol 25 mg tablet 25 mg PO BID 12/10/21 12/10/21 cholecalciferol (vitamin D3) 25 25 mcg PO DAILY 12/10/21 12/10/21 mcg (1,000 unit) tablet (Vitamin D3) fluticasone fur. 200 mcg-umeclid 1 inh inhalation DAILY 12/10/21 12/10/21 62.5 mcg-vilant 25 mcg inhalat.powder (Trelegy Ellipta) pantoprazole 40 mg tablet,delayed 40 mg PO BID 12/10/21 12/10/21 release ropinirole 0.25 mg tablet 0.25 mg PO HS 12/10/21 12/10/21 rosuvastatin 20 mg tablet 20 mg PO DAILY 12/10/21 12/10/21 sertraline 100 mg tablet 100 mg PO BID 12/10/21 12/10/21 simvastatin 40 mg tablet 40 mg PO HS 12/10/21 12/10/21 trazodone 50 mg tablet 50 mg PO HS 12/10/21 12/10/21 Allergies Allergy/AdvReac Type Severity Reaction Status Date / Time No Known Allergies Allergy Verified 12/11/21 22:16 Review of Systems Review of Systems: All systems reviewed & are unremarkable except as noted in HPI and below PMFSH Past Medical History Medical History Anxiety Arthritis Asthma COPD (chronic obstructive pulmonary disease) CVA (cerebral vascular accident) Depression Diabetes Folliculitis Gastritis Hyperlipemia Hypertension Lumbar radiculopathy ELIOT (obstructive sleep apnea) Surgical History Surgical History H/O cardiac catheterization H/O removal of cyst brain, unable to remove due to cyst being wrapped around spinal cord. 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
[2021-12-11] MEDS: MORPHINE SULFATE (*CRX) 4 MG/ML INJ IV PUSH (23:14)
[2021-12-11] MEDS: SODIUM CHLORIDE 0.9% IV 1,000 ML 999 ML IV CONT (23:14)
[2021-12-11 23:16] LABS: Basophils Absolute Auto 0.1 K/mm3 (0.0-0.1); Basophils Percent Auto 0.5 % (0.2-1.2); Eosinophils Absolute Auto 0.2 K/mm3 (0-0.3); Eosinophils Percent Auto 1.8 % (0-4.4); Hematocrit 33.4 % (37.0-47.0); Hemoglobin 10.1 g/dL (12.0-15.0); Immature Granulocyte Absolute 0.11 K/mm3 (0.00-0.031); Immature Granulocyte Percent A 1.1 % (0-0.5); Lymphocytes Absolute Auto 1.63 K/mm3 (0.9-3.2); Lymphocytes Percent Auto 16.1 % (18.3-44.2); Mean Corpuscular HGB Conc 30.2 g/dl (32-36); Mean Corpuscular Hemoglobin 27.4 pg (26-34); Mean Corpuscular Volume 90.5 fl (80-100); Mean Platelet Volume 9.5 fl (7.4-10.4); Monocytes Absolute Auto 0.9 K/mm3 (0.1-0.6); Monocytes Percent Auto 8.8 % (2.6-8.5); Neutrophils Absolute Auto 7.3 K/mm3 (1.3-6.7); Neutrophils Percent Auto 71.7 % (45.5-73.1); Nucleated Red Blood Cells Perc 0.2 % (0.0-0.2); Platelet Count Result 371 k/mm3 (150-375); Red Blood Count 3.69 M/mm3 (4.2-5.4); Red Cell Distribution Width 20.3 % (11.5-14.5); White Blood Count 10.1 K/mm3 (4.5-10.0)
[2021-12-11 23:26] LABS: Alanine Aminotransferase 25 U/L (6-35); Albumin Level 4.4 g/dL (3.5-5.1); Alkaline Phosphatase 139 U/L (38-126); Anion Gap 9 mmol/L (8-16); Aspartate Amino Transferase 21 U/L (14-36); Bilirubin,Total 0.5 mg/dL (0.2-1.3); Blood Urea Nitrogen 14 mg/dL (7-17); Calcium 8.9 mg/dL (8.4-10.2); Carbon Dioxide 24 mmol/L (22-30); Chloride 103 mmol/L (98-107); Estimated CRCL calculation 57 ml/min; Estimated Glomerular Filt Rate 51; Glucose 69 mg/dL (65-110); Potassium 3.7 mmol/L (3.4-5.0); Prothrombin Time 13.1 Seconds (11.1-14.7); Sodium 136 mmol/L (137-145)
[2021-12-11 23:27] LABS: Lactic Acid Reflex 1.3 mmol/L (0.7-2.0); Partial Thromboplastin Time 33.9 SECONDS (22.3-36.8)
[2021-12-11] MEDS: cefTRIAXone 2 GM in SODIUM CHLORIDE 0.9% IV 100 ML 200 ML IVPB (23:29)
[2021-12-11 23:46] VITALS: BP 122/84; PULSE 104; RESP 18; O2SAT 92
[2021-12-12 00:31] VITALS: BP 120/84; PULSE 99; RESP 20; O2SAT 95
--- NOTE | 2021-12-12 00:38 | PC.NURSE ---
Patient taken to CT via stretcher.
[2021-12-12 01:31] VITALS: BP 122/96
[2021-12-12] MEDS: KETOROLAC 15 MG/ML VIAL (*BKC) IV PUSH (01:47)
[2021-12-12] MEDS: MORPHINE SULFATE (*CRX) 4 MG/ML INJ IV PUSH (01:48)
[2021-12-12 02:01] VITALS: BP 138/89; PULSE 99; RESP 17; O2SAT 95
--- NOTE | 2021-12-12 03:15 | PC.NURSE ---
Assumed care of pt at this time. Report taken from cat Rn
[2021-12-12 03:24] VITALS: BP 126/68; PULSE 95; RESP 18; O2SAT 96
--- NOTE | 2021-12-12 20:13 | PC.NURSE ---
This RN called and spoke with pt at approx. 2000 at her listed cell phone number of [phone]. After confirming pt's name and , I informed her of the radiology report related to her visit last night, and advised her to seek immediate emergency care, either at her nearest ED or any facility with an oromaxillofacial surgeon. Informed pt that although we do not have that specialty here, we would be happy to see her and would transfer her if necessary. Verbalized importance of seeking immediate care, and pt verbalized understanding. ADRIAN Radford and Brenda both notified that pt has been contacted and instructed to return to ED.
== END 2021-12-12 03:49 | disposition home or self-care (01) ==
PROVIDERS: Emergency Provider Emergency Medicine; PCP Emergency Medicine
DX: L02.01 Cutaneous abscess of face (principal); I10 Essential (primary) hypertension; E11.9 Type 2 diabetes mellitus without complications; E78.5 Hyperlipidemia, unspecified; J44.9 Chronic obstructive pulmonary disease, unspecified; F32.A Depression, unspecified; F41.9 Anxiety disorder, unspecified; G47.33 Obstructive sleep apnea (adult) (pediatric); Z86.73 Personal history of transient ischemic attack (TIA), and cerebral infarction without residual deficits; Z79.84 Long term (current) use of oral hypoglycemic drugs; Z79.51 Long term (current) use of inhaled steroids; Z98.2 Presence of cerebrospinal fluid drainage device; F17.210 Nicotine dependence, cigarettes, uncomplicated
CPT/HCPCS: 36415; 70491; 80053; 83605; 85025; 85610; 85730; 87040; 96365; 96367; 96375; 99284; J0131; J0696; J1885; J2270; J3370; J7030; Q9967

== ENCOUNTER 2022-11-07 19:54 | Emergency (ER) | payer OTHER, SELFPAY ==
[2022-11-07] VITALS (10 sets, daily range): BP systolic 135–178; BP diastolic 92–123; PULSE 86–94; RESP 16–18; TEMP 36.8; O2SAT 97–99
--- NOTE | ~2022-11-07 | CT_ITS ---
EXAMINATION: CT cervical spine wo con DATE: 11/07/2022 21:16 INDICATION: injury TECHNIQUE: Computed tomography (CT) of the cervical spine was performed without intravenous contrast. Automated exposure control and iterative reconstruction technique were employed. The dose-length pro duct was 517.56 mGy-cm. COMPARISON: CT soft tissue neck 12/12/2021. FINDINGS: Vertebral Body Alignment: Intact. Craniocervical and atlantoaxial alignment: Moderate degenerative change. Alignment intact. Osseous structures/fracture: No evidence of a lytic or blastic process in the visualized spine. No e vidence of acute fracture. Cervical soft tissues: The paraspinal soft tissues planes are maintained. 1 cm left thyroid nodule. S ubcentimeter mediastinal lymph nodes, not pathologic by size criteria. 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 Posterior fossa arachnoid cyst with shunt in place, partially visualized shun t tubing is intact. Partially visualized fixation hardware along the right mandible, with multiple ad jacent surgical clips. Degenerative changes: Multilevel degenerative disc disease and facet arthropathy. Severe left neural foraminal narrowing at C4-5. Severe right neural foraminal narrowing at C3-4. No severe central canal narrowing. IMPRESSION: No acute fracture or traumatic malalignment in the cervical spine. Severe degenerative neural foraminal narrowing on the right at C3-4 and on the left at C4-5. 1 cm left thyroid nodule, recommend nonemergent outpatient thyroid ultrasound for further characteriz ation. Reviewed, dictated and finalized at location K. IMPRESSION: No acute fracture or traumatic malalignment in the cervical spine. Severe degenerative neural foraminal narrowing on the right at C3-4 and on the left at C4-5. 1 cm left thyroid nodule, recommend nonemergent outpatient thyroid ultrasound f or further characterization.
--- NOTE | ~2022-11-07 | CT_ITS ---
EXAMINATION: CT brain wo con DATE: 11/07/2022 21:16 INDICATION: syncope . TECHNIQUE: Computed tomography (CT) of the head was performed without intravenous contrast. The mA wa s adjusted according to patient size. Iterative reconstruction technique was employed. The dose-lengt h product was 681.00 mGy-cm. COMPARISON: 11/18/2015. FINDINGS: No acute intracranial hemorrhage or extra-axial fluid collection. No hydrocephalus, mass, or herniation. No acute ischemic infarct. Unremarkable dural venous sinus attenuation. No acute osseous abnormality. Partially visualized, uncomplicated appearing fixation hardware in the right mandible. Left posterior occipital alana hole. Periapical lucencies surrounding multiple teeth. Mild mucosal thickening in the ethmoid air cells and right maxillary sinus. The remaining aerated spa drew are clear. Atherosclerotic intracranial calcification. Left inferior occipital shunt, terminating in a cystic po sterior fossa collection, with adjacent dystrophic calcification. The posterior fossa collection has decreased in size and appears to be multiloculated and has previously been described as an arachnoid cyst, which extends into the cervical canal. IMPRESSION: Posterior fossa arachnoid cyst extending into the cervical canal, with a left sided approach shunt, o verall smaller than in the prior study. Mild mucoperiosteal sinus disease. Periodontal disease. No acute intracranial process. Reviewed, dictated and finalized at location K. IMPRESSION: Posterior fossa arachnoid cyst extending into the cervical canal, with a left s ided approach shunt, overall smaller than in the prior study. Mild mucoperiosteal sinus disease. Periodontal disease. No acute intracranial process.
--- NOTE | ~2022-11-07 | XR_ITS ---
EXAM: XR shoulder LT min 2V DATE: 11/07/2022 21:27 HISTORY: pain and injury . COMPARISON: None available. FINDINGS: Normal mineralization. No fracture or dislocation. No lytic or blastic lesion. Normal AC j oint. Moderate glenohumeral osteophytosis. Coracoclavicular pseudarthrosis. No erosion or periosteal change. Soft tissues within normal limits. IMPRESSION: Moderate left glenohumeral joint osteoarthritis, with coracoclavicular pseudarthrosis. No acute osseous finding in the left shoulder. Reviewed, dictated and finalized at location K. IMPRESSION: Moderate left glenohumeral joint osteoarthritis, with coracoclavicular pseudart hrosis. No acute osseous finding in the left shoulder.
--- NOTE | ~2022-11-07 | XR_ITS ---
EXAMINATION: XR chest 1V Exam Date/Time: 11/07/2022 21:20 CDT HISTORY: SYNCOPE, PAIN TO LEFT SHOULDER Comparison: 09/27/2021. RESULT: Lines, tubes, and devices: Intact shunt tubing traverses the left chest. Right axillary surgical cli ps. Lungs and pleura: Clear. Cardiomediastinal silhouette: Stable. Other: No acute osseous or upper abdominal finding. Moderate bilateral clinical humeral osteoarthrit is. Small enchondroma, bone island, or infarct in the right humeral head. IMPRESSION: No acute cardiopulmonary process. Reviewed, dictated and finalized at location K.
--- NOTE | ~2022-11-07 | CT_ITS ---
EXAMINATION: CT thoracic lumbar wo con DATE: 11/07/2022 21:26 INDICATION: injury . TECHNIQUE: Computed tomography (CT) of the thoracic and lumbar spine was performed without intravenou s contrast. The dose-length product was 2118.35 mGy-cm. COMPARISON: CT abdomen pelvis 11/05/2021 CTPA 09/25/2021 FINDINGS: THORACIC SPINE: Vertebral body alignment intact. Vertebral body heights preserved. No disc space narrowing. No trauma tic malalignment or fracture. Visualized lung parenchyma is clear. Old healed right posterior fifth r ib fracture. Atherosclerotic calcifications. Coronary artery calcifications. Small hiatal hernia. No severe central canal or neural foraminal narrowing. LUMBAR SPINE: 5 nonrib-bearing lumbar-type vertebral bodies. Pedicles intact. Normal vertebral body alignment. Mild superior endplate deformity at L1, unchanged. Vertebral body heights are otherwise preserved. Multil evel degenerative disc disease, severe at L5-S1. Multilevel facet arthropathy. Severe central canal o r neural foraminal narrowing. Stable right femoral head osteonecrosis. IMPRESSION: No acute fracture or traumatic malalignment detected in the thoracic or lumbar spine Reviewed, dictated and finalized at location K.
--- NOTE | 2022-11-07 20:15 | ECG_ITS ---
Measurements Intervals [place] Rate: 87 P: 70 [place]: 179 QRS: 77 QRSD: 77 T: 59 QT: 364 QTc: 440 Interpretive Statements SINUS RHYTHM BASELINE ARTIFACT- II, III, AVL, AVF NORMAL ECG COMPARED TO ECG 09/25/2021 01:45:41 SINUS RHYTHM NOW PRESENT Electronically Signed On 11-08-2022 6:41:49 CDT by Momo France D.O.
--- NOTE | 2022-11-07 20:17 | ED.SYNCOPE ---
HPI - Syncope General Chief Complaint: Syncope Stated Complaint: SYNCOPE, FALL, HEAD & NECK PAIN Time Seen by Provider: 11/07/22 20:00 History of Present Illness HPI narrative: Patient presents to the emergency department by EMS from home. Patient had a syncopal event. She had been laying down. When she stood up and took a couple steps she passed out. Hit the top of her head on the desk. Denies laceration however has pain. Also has neck and back pain all the way down . Denies chest pain and shortness of breath. She has been feeling well up until the event. She says that she always pauses before walking after getting up because she gets lightheaded at times. Patient is pleasant and her exam is grossly benign, no visible injuries Related Data Home Medications Medication Instructions Recorded Confirmed alendronate 70 mg tablet 70 mg PO WEEKLY 12/09/19 12/10/21 montelukast 10 mg tablet 10 mg PO DAILY 12/09/19 12/10/21 (Singulair) metformin 500 mg tablet 750 mg PO DAILY 06/07/21 12/10/21 clonidine HCl 0.1 mg tablet 0.1 mg PO HS 09/25/21 12/10/21 dicyclomine 10 mg capsule 10 mg PO BID 09/25/21 12/10/21 furosemide 40 mg tablet 40 mg PO DAILY 09/25/21 12/10/21 losartan 50 mg tablet 50 mg PO DAILY 09/25/21 12/10/21 metoclopramide HCl 10 mg tablet 10 mg PO TID 09/25/21 12/10/21 albuterol sulfate 90 mcg/actuation 2 puff inhalation QID PRN 12/10/21 12/10/21 aerosol inhaler (ProAir HFA) Shortness Of Breath albuterol sulfate 90 mcg/actuation 2 puff inhalation QID PRN 12/10/21 12/10/21 aerosol inhaler (Ventolin HFA) Shortness Of Breath carvedilol 25 mg tablet 25 mg PO BID 12/10/21 12/10/21 cholecalciferol (vitamin D3) 25 25 mcg PO DAILY 12/10/21 12/10/21 mcg (1,000 unit) tablet (Vitamin D3) fluticasone fur. 200 mcg-umeclid 1 inh inhalation DAILY 12/10/21 12/10/21 62.5 mcg-vilant 25 mcg inhalat.powder (Trelegy Ellipta) pantoprazole 40 mg tablet,delayed 40 mg PO BID 12/10/21 12/10/21 release ropinirole 0.25 mg tablet 0.25 mg PO HS 12/10/21 12/10/21 rosuvastatin 20 mg tablet 20 mg PO DAILY 12/10/21 12/10/21 sertraline 100 mg tablet 100 mg PO BID 12/10/21 12/10/21 simvastatin 40 mg tablet 40 mg PO HS 12/10/21 12/10/21 trazodone 50 mg tablet 50 mg PO HS 12/10/21 12/10/21 Allergies Allergy/AdvReac Type Severity Reaction Status Date / Time No Known Allergies Allergy Verified 12/11/21 22:16 Review of Systems Review of Systems: CONSTITUTIONAL: Denies fever, chills, or sweats. EYES: Denies visual changes, redness, or discharge. ENT: Denies rhinorrhea, congestion, sore throat, or otalgia. CARDIOVASCULAR: Denies chest pain, palpitations, or edema. RESPIRATORY: Denies cough or dyspnea. GASTROINTESTINAL: Denies abdominal pain, nausea, vomiting, or diarrhea. GENITOURINARY: Denies dysuria or hematuria. SKIN: Denies rash or itching. MUSCULOSKELETAL: Denies myalgia. Patient has generalized back pain and left shoulder pain NEUROLOGIC: Denies headache, numbness, or weakness. PSYCHIATRIC: Denies anxiety or depression. [facility] Past Medical History Medical History Anxiety Arthritis Asthma COPD (chronic obstructive pulmonary disease) CVA (cerebral vascular accident) Depression Diabetes Folliculitis Gastritis Hyperlipemia Hypertension Lumbar radiculopathy ELIOT (obstructive sleep apnea) Surgical History Surgical History H/O cardiac catheterization H/O removal of cyst brain, unable to remove due to cyst being wrapped around spinal cord. 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
[2022-11-07 20:40] LABS: Basophils Absolute Auto 0.1 K/mm3 (0.0-0.1); Basophils Percent Auto 1.1 % (0.2-1.2); Eosinophils Absolute Auto 0.2 K/mm3 (0-0.3); Eosinophils Percent Auto 2.6 % (0-4.4); Hemoglobin 13.3 g/dL (12.0-15.0); Immature Granulocyte Absolute 0.05 K/mm3 (0.00-0.031); Immature Granulocyte Percent A 0.7 % (0-0.5); Immature Platelet Fraction Pct 7.8 % (0.9-11.2); Lymphocytes Percent Auto 31.8 % (18.3-44.2); Mean Corpuscular HGB Conc 33.3 g/dl (32-36); Mean Corpuscular Hemoglobin 34.4 pg (26-34); Mean Corpuscular Volume 103.4 fl (80-100); Mean Platelet Volume 12.3 fl (7.4-10.4); Monocytes Absolute Auto 0.6 K/mm3 (0.1-0.6); Monocytes Percent Auto 7.3 % (2.6-8.5); Neutrophils Absolute Auto 4.3 K/mm3 (1.3-6.7); Neutrophils Percent Auto 56.5 % (45.5-73.1); Platelet Count Result 219 k/mm3 (150-375); Red Blood Count 3.87 M/mm3 (4.2-5.4); Red Cell Distribution Width 12.8 % (11.5-14.5); White Blood Count 7.6 K/mm3 (4.5-10.0)
[2022-11-07] MEDS: SODIUM CHLORIDE 0.9% IV 1,000 ML 999 ML IV CONT (20:47)
[2022-11-07 21:02] LABS: Platelet Estimate Adequate (Adequate)
[2022-11-07 21:03] LABS: Anisocytosis 1+ (NORMAL); Schistocytes None Seen (NORMAL)
[2022-11-07 21:05] LABS: Alanine Aminotransferase 17 U/L (6-35); Albumin Level 3.8 g/dL (3.5-5.1); Alkaline Phosphatase 86 U/L (38-126); Anion Gap 11 mmol/L (8-16); Aspartate Amino Transferase 21 U/L (14-36); Bilirubin,Total 0.3 mg/dL (0.2-1.3); Blood Urea Nitrogen 16 mg/dL (7-17); Calcium 8.6 mg/dL (8.4-10.2); Carbon Dioxide 19 mmol/L (22-30); Chloride 110 mmol/L (98-107); Estimated CRCL calculation 72 ml/min; Estimated Glomerular Filt Rate > 60; Glucose 99 mg/dL (65-110); Potassium 3.5 mmol/L (3.4-5.0); Sodium 140 mmol/L (137-145)
[2022-11-07 21:17] LABS: Troponin I < 0.012 ng/mL (0.000-0.034)
[2022-11-07] MEDS: HYDROcodone/acetaminophen (*CRX) 5-325 MG TABLET 1 TAB PO (21:31)
[2022-11-07] MEDS: cloNIDine HCL 0.1 MG TABLET 0.2 MG PO (21:38)
[2022-11-07] MEDS: MORPHINE SULFATE (*CRX) 4 MG/ML INJ IV PUSH (22:53)
[2022-11-08 00:48] VITALS: BP 125/92; PULSE 83; RESP 20; O2SAT 98
[2022-11-08] MEDS: LIDOCAINE 5% PATCH 1 PATCH TRANSDERM (00:55)
[2022-11-08 01:40] VITALS: BP 117/88; PULSE 82; RESP 12; O2SAT 99
== END 2022-11-08 01:40 | disposition home or self-care (01) ==
PROVIDERS: Emergency Provider Emergency Medicine; PCP Emergency Medicine
DX: R55 Syncope and collapse (principal); J44.9 Chronic obstructive pulmonary disease, unspecified; M54.50 Low back pain, unspecified; F17.210 Nicotine dependence, cigarettes, uncomplicated; F41.9 Anxiety disorder, unspecified; M19.90 Unspecified osteoarthritis, unspecified site; F32.A Depression, unspecified; I10 Essential (primary) hypertension
CPT/HCPCS: 36415; 70450; 71045; 72125; 72128; 72131; 73030; 80053; 84484; 85025; 85055; 93005; 96361; 96374; 99284; A9270; J2270; J7030

== ENCOUNTER 2022-12-05 15:53 | Outpatient (CLI) | payer OTHER, SELFPAY ==
[2022-12-05 16:08] LABS: Basophils Absolute Auto 0.1 K/mm3 (0.0-0.1); Basophils Percent Auto 0.5 % (0.2-1.2); Eosinophils Absolute Auto 0.1 K/mm3 (0-0.3); Eosinophils Percent Auto 1.1 % (0-4.4); Hematocrit 38.4 % (37.0-47.0); Hemoglobin 12.4 g/dL (12.0-15.0); Immature Granulocyte Absolute 0.11 K/mm3 (0.00-0.031); Lymphocytes Percent Auto 12.7 % (18.3-44.2); Mean Corpuscular HGB Conc 32.3 g/dl (32-36); Mean Corpuscular Hemoglobin 33.5 pg (26-34); Mean Corpuscular Volume 103.8 fl (80-100); Mean Platelet Volume 10.6 fl (7.4-10.4); Monocytes Absolute Auto 0.6 K/mm3 (0.1-0.6); Monocytes Percent Auto 5.2 % (2.6-8.5); Neutrophils Absolute Auto 8.8 K/mm3 (1.3-6.7); Neutrophils Percent Auto 79.5 % (45.5-73.1); Platelet Count Result 255 k/mm3 (150-375); Red Cell Distribution Width 13.4 % (11.5-14.5)
[2022-12-05 16:43] LABS: Anion Gap 11 mmol/L (8-16); Blood Urea Nitrogen 18 mg/dL (7-17); Calcium 9.5 mg/dL (8.4-10.2); Carbon Dioxide 25 mmol/L (22-30); Chloride 102 mmol/L (98-107); Estimated Glomerular Filt Rate 46; Glucose 111 mg/dL (65-110); Sodium 138 mmol/L (137-145)
[2022-12-05 17:31] LABS: Iron 77 ug/dL (37-170)
[2022-12-05 17:43] LABS: Percent Iron Saturation 29 % (20-50)
== END 2022-12-05 15:54 | disposition home or self-care (01) ==
PROVIDERS: PCP Emergency Medicine; Visit Provider Internal Medicine Hematology & Oncology
DX: D64.9 Anemia, unspecified (principal)
CPT/HCPCS: 36415; 80048; 82728; 83540; 83550; 85025

== ENCOUNTER 2022-12-20 03:12 | Emergency (ER) | payer OTHER, SELFPAY ==
--- NOTE | ~2022-12-20 | XR_ITS ---
Portable chest x-ray Comparison: 11/07/2022 Clinical History: Dyspnea Findings: BAND SAW FILER shunt present. Questionable minimal interstitial edema. Cardiomediastinal silhouette i s stable. Mild degenerative change of both shoulders noted. Impression: Questionable minimal interstitial edema. BAND SAW FILER shunt. Reviewed, dictated and finalized at [facility]. Impression: Questionable minimal interstitial edema. BAND SAW FILER shunt.
[2022-12-20 03:14] VITALS: BP 148/93; PULSE 112; RESP 18; O2SAT 97
--- NOTE | 2022-12-20 03:21 | ECG_ITS ---
Measurements Intervals [place] Rate: 109 P: 68 MS: 173 QRS: 80 QRSD: 76 T: 65 QT: 340 QTc: 459 Interpretive Statements SINUS TACHYCARDIA ABNORMAL RHYTHM ECG COMPARED TO ECG 11/07/2022 20:16:28 SINUS TACHYCARDIA NOW PRESENT Electronically Signed On 12-20-2022 19:53:12 CDT by Saba Paula M.D.
[2022-12-20 03:32] LABS: Basophils Absolute Auto 0.1 K/mm3 (0.0-0.1); Basophils Percent Auto 0.5 % (0.2-1.2); Eosinophils Absolute Auto 0.4 K/mm3 (0-0.3); Eosinophils Percent Auto 3.8 % (0-4.4); Hemoglobin 13.1 g/dL (12.0-15.0); Lymphocytes Percent Auto 22.4 % (18.3-44.2); Mean Corpuscular HGB Conc 32.8 g/dl (32-36); Mean Corpuscular Hemoglobin 33.9 pg (26-34); Mean Corpuscular Volume 103.6 fl (80-100); Mean Platelet Volume 9.8 fl (7.4-10.4); Monocytes Absolute Auto 0.6 K/mm3 (0.1-0.6); Monocytes Percent Auto 6.5 % (2.6-8.5); Neutrophils Absolute Auto 6.5 K/mm3 (1.3-6.7); Neutrophils Percent Auto 65.8 % (45.5-73.1); Platelet Count Result 320 k/mm3 (150-375); Red Blood Count 3.86 M/mm3 (4.2-5.4); White Blood Count 9.8 K/mm3 (4.5-10.0)
--- NOTE | 2022-12-20 03:35 | ED.GENADULT ---
HPI - General Adult General Chief complaint: Chest Pain Stated complaint: CHEST PAIN Time Seen by Provider: 12/20/22 03:15 History of Present Illness HPI narrative: Patient is a 57-year-old female who presents the emergency department with chief complaint of shortness of breath and chest pain. Patient has history of COPD and wears oxygen on an as-needed basis. Patient was found to have a kinked oxygen hose by EMS but had chest discomfort that she describes as a pressure or heaviness or tightness patient was given nitro by EMS prior to arrival and is feeling better Related Data Home Medications Medication Instructions Recorded Confirmed alendronate 70 mg tablet 70 mg PO WEEKLY 12/09/19 12/10/21 montelukast 10 mg tablet 10 mg PO DAILY 12/09/19 12/10/21 (Singulair) metformin 500 mg tablet 750 mg PO DAILY 06/07/21 12/10/21 clonidine HCl 0.1 mg tablet 0.1 mg PO HS 09/25/21 12/10/21 dicyclomine 10 mg capsule 10 mg PO BID 09/25/21 12/10/21 furosemide 40 mg tablet 40 mg PO DAILY 09/25/21 12/10/21 losartan 50 mg tablet 50 mg PO DAILY 09/25/21 12/10/21 metoclopramide HCl 10 mg tablet 10 mg PO TID 09/25/21 12/10/21 albuterol sulfate 90 mcg/actuation 2 puff inhalation QID PRN 12/10/21 12/10/21 aerosol inhaler (ProAir HFA) Shortness Of Breath albuterol sulfate 90 mcg/actuation 2 puff inhalation QID PRN 12/10/21 12/10/21 aerosol inhaler (Ventolin HFA) Shortness Of Breath carvedilol 25 mg tablet 25 mg PO BID 12/10/21 12/10/21 cholecalciferol (vitamin D3) 25 25 mcg PO DAILY 12/10/21 12/10/21 mcg (1,000 unit) tablet (Vitamin D3) fluticasone fur. 200 mcg-umeclid 1 inh inhalation DAILY 12/10/21 12/10/21 62.5 mcg-vilant 25 mcg inhalat.powder (Trelegy Ellipta) pantoprazole 40 mg tablet,delayed 40 mg PO BID 12/10/21 12/10/21 release ropinirole 0.25 mg tablet 0.25 mg PO HS 12/10/21 12/10/21 rosuvastatin 20 mg tablet 20 mg PO DAILY 12/10/21 12/10/21 sertraline 100 mg tablet 100 mg PO BID 12/10/21 12/10/21 simvastatin 40 mg tablet 40 mg PO HS 12/10/21 12/10/21 trazodone 50 mg tablet 50 mg PO HS 12/10/21 12/10/21 Allergies Allergy/AdvReac Type Severity Reaction Status Date / Time No Known Allergies Allergy Verified 12/20/22 05:05 Review of Systems Review of Systems: A 10 system review of systems was completed on the patient and is negative except for what is stated in the HPI. Nursing and ancillary documentation was reviewed. PMFSH Past Medical History Medical History Anxiety Arthritis Asthma COPD (chronic obstructive pulmonary disease) CVA (cerebral vascular accident) Depression Diabetes Folliculitis Gastritis Hyperlipemia Hypertension Lumbar radiculopathy ELIOT (obstructive sleep apnea) Surgical History Surgical History H/O cardiac catheterization H/O removal of cyst brain, unable to remove due to cyst being wrapped around spinal cord. 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 shunt Family History Family History Father Diabetes mellitus Hypertension Mother Hypertension Other Arthritis Asthma Cancer Cerebrovascular accident Depression Family history of arthritis Family history of heart disease in male family member before age 55 Family history of lung disease High cholesterol Social History Social History Smoking packs per day: 0.5 Smoking cigarettes per day: 10.0 Years smoked: 45 Smoking pack-years: 22.50 Smoking status: Current every day smoker Tobacco type: cigarettes Alcohol intake: never Substance use: never Living arrangements: with family Occupation/Education: unemployed Spiritual care concerns: No Exam Narrative: GENERAL: Well-appearing, well-nourished, and in no acute distress. H
[2022-12-20] MEDS: NITROGLYCERIN SL 0.4 MG TABLET SUBLINGUAL (03:42)
[2022-12-20 03:43] LABS: Alanine Aminotransferase 28 U/L (6-35); Albumin Level 4.7 g/dL (3.5-5.1); Alkaline Phosphatase 95 U/L (38-126); Anion Gap 12 mmol/L (8-16); Aspartate Amino Transferase 28 U/L (14-36); Bilirubin,Total 0.5 mg/dL (0.2-1.3); Blood Urea Nitrogen 24 mg/dL (7-17); Carbon Dioxide 21 mmol/L (22-30); Chloride 104 mmol/L (98-107); Estimated CRCL calculation 53 ml/min; Estimated Glomerular Filt Rate 51; Glucose 96 mg/dL (65-110); Lipase 168 U/L (23-300); Potassium 4.6 mmol/L (3.4-5.0); Sodium 137 mmol/L (137-145)
[2022-12-20 03:44] LABS: INR 0.9; Prothrombin Time 12.2 Seconds (11.1-14.7)
[2022-12-20 03:45] LABS: Partial Thromboplastin Time 27.4 SECONDS (22.3-36.8)
[2022-12-20] MEDS: MORPHINE SULFATE (*CRX) 4 MG/ML INJ IV PUSH ×2 (03:47→05:17)
[2022-12-20 03:53] LABS: Troponin I < 0.012 ng/mL (0.000-0.034)
[2022-12-20 03:54] LABS: NT Pro B Type Natriuretic Pept 76 pg/mL (19.9-100)
[2022-12-20 04:02] VITALS: O2SAT 98
[2022-12-20 04:05] VITALS: PULSE 102
[2022-12-20 05:00] VITALS: BP 136/92; PULSE 93; RESP 20; O2SAT 97
[2022-12-20 06:19] VITALS: BP 123/86; PULSE 93; RESP 17; O2SAT 97
[2022-12-20 06:52] LABS: Troponin I < 0.012 ng/mL (0.000-0.034)
== END 2022-12-20 07:05 | disposition home or self-care (01) ==
PROVIDERS: Emergency Provider Emergency Medicine; PCP Emergency Medicine
DX: R07.89 Other chest pain (principal); F17.210 Nicotine dependence, cigarettes, uncomplicated; F41.9 Anxiety disorder, unspecified; M19.90 Unspecified osteoarthritis, unspecified site; J45.909 Unspecified asthma, uncomplicated; F32.A Depression, unspecified; E78.5 Hyperlipidemia, unspecified; G47.30 Sleep apnea, unspecified
CPT/HCPCS: 36415; 71045; 80053; 83690; 83880; 84484; 85025; 85610; 85730; 93005; 96374; 96376; 99284; A9270; J2270

== ENCOUNTER 2023-01-02 10:12 | Outpatient (CLI) | payer OTHER, SELFPAY ==
--- NOTE | ~2023-01-02 | US_ITS ---
EXAMINATION: US soft tissue head and neck DATE: 01/02/2023 12:11 INDICATION: Thyroid nodule TECHNIQUE: Multiple ultrasound images of the thyroid were obtained. COMPARISON: 11/05/2021 FINDINGS: The right thyroid lobe measures 4.5 x 1.5 x 2.1 cm. The left thyroid lobe measures 5.3 x 1.9 x 1.9 c m. 1.9 x 1.5 x 1.1 cm wider than tall predominately solid hypoechoic nodule with smooth margins and without echogenic foci at the inferior left thyroid lobe (TI-RADS 4, moderately suspicious , FNA if > =1.5 cm, annual followup is >=1 cm). There are multiple additional subcentimeter likely benign cystic or predominantly cystic nodules in the left thyroid lobe. There is normal echotexture, echogenicity and vascular flow throughout the surrounding thyroid gland. IMPRESSION: 1. Multinodular goiter. Recommend ultrasound-guided fine-needle aspiration of the 1.9 cm TI RADS 4 no dule at the inferior left thyroid. Reviewed, dictated and finalized at location A. INTERFACE DEVELOPER IMPRESSION: 1. Multinodular goiter. Recommend ultrasound-guided fine-needle aspiration of t he 1.9 cm TI RADS 4 nodule at the inferior left thyroid.
--- NOTE | ~2023-01-02 | CT_ITS ---
CT Scan of the Chest without Contrast: Clinical Indication: Lung cancer screening, personal history of nicotine dependence Technique: Contiguous sections were acquired throughout the chest without intravenous contrast. Dose reduction technique was used on this scan by utilizing automated exposure control and iterative recon struction technique. The dose-length product (DLP) was 176.89 mGy-cm. COMPARISON: 09/25/2021 Findings: There is no evidence of any significant mediastinal, hilar or axillary lymphadenopathy. The mediastin al soft tissues appear normal. There is no evidence of pleural or pericardial effusion. The lungs are clear. No pulmonary nodules or infiltrates are noted. Images through the upper abdomen reveal no abnormalities. Impression: Lung RADS 1: Negative. 12 month follow-up screening CT advised. Reviewed, dictated and finalized at location . M HANDLE DIPPER Impression: Lung RADS 1: Negative. 12 month follow-up screening CT advised.
== END 2023-01-02 10:13 | disposition home or self-care (01) ==
LOC: ANHIMG 10:27
PROVIDERS: PCP Emergency Medicine; Visit Provider Internal Medicine Hematology & Oncology
DX: E04.2 Nontoxic multinodular goiter (principal)
CPT/HCPCS: 71271; 76536

== ENCOUNTER 2023-02-02 20:17 | Emergency (ER) | payer OTHER, SELFPAY ==
--- NOTE | ~2023-02-02 | XR_ITS ---
EXAMINATION: XR chest 2V DATE: 02/02/2023 21:14 INDICATION: Cough. TECHNIQUE: Frontal and lateral views of the chest were obtained. COMPARISON: Chest single view 12/20/2022, chest CT 01/02/2023 FINDINGS: There is no pneumonia, pleural effusion, or pneumothorax. The heart size is normal. There a re surgical clips in right axilla. IMPRESSION: 1. No acute cardiopulmonary disease. Reviewed, dictated and finalized at location E. OR DESIGNER
[2023-02-02 20:20] VITALS: BP 166/97; PULSE 88; RESP 16; TEMP 36; O2SAT 95
--- NOTE | 2023-02-02 20:34 | ED.GENADULT ---
HPI - General Adult General Chief complaint: Weakness Stated complaint: lethargy X2 days Time Seen by Provider: 02/02/23 20:27 History of Present Illness HPI narrative: Patient is a 57-year-old female who presents ER with increased fatigue and sleepiness over last 2 days. Patient has had some cough and has difficulty getting mucus up according to significant other. No reports of fevers or chills or sweats. No known sick contacts. Patient is without any chest pain or chest pressure. She wears oxygen when she is out and about but does not wear when at rest. Currently satting 98% on room air. She has also been wearing her CPAP in the evenings like she is supposed to. Related Data Home Medications Medication Instructions Recorded Confirmed alendronate 70 mg tablet 70 mg PO WEEKLY 12/09/19 12/10/21 montelukast 10 mg tablet 10 mg PO DAILY 12/09/19 12/10/21 (Singulair) metformin 500 mg tablet 750 mg PO DAILY 06/07/21 12/10/21 clonidine HCl 0.1 mg tablet 0.1 mg PO HS 09/25/21 12/10/21 dicyclomine 10 mg capsule 10 mg PO BID 09/25/21 12/10/21 furosemide 40 mg tablet 40 mg PO DAILY 09/25/21 12/10/21 losartan 50 mg tablet 50 mg PO DAILY 09/25/21 12/10/21 metoclopramide HCl 10 mg tablet 10 mg PO TID 09/25/21 12/10/21 albuterol sulfate 90 mcg/actuation 2 puff inhalation QID PRN 12/10/21 12/10/21 aerosol inhaler (ProAir HFA) Shortness Of Breath albuterol sulfate 90 mcg/actuation 2 puff inhalation QID PRN 12/10/21 12/10/21 aerosol inhaler (Ventolin HFA) Shortness Of Breath carvedilol 25 mg tablet 25 mg PO BID 12/10/21 12/10/21 cholecalciferol (vitamin D3) 25 25 mcg PO DAILY 12/10/21 12/10/21 mcg (1,000 unit) tablet (Vitamin D3) fluticasone fur. 200 mcg-umeclid 1 inh inhalation DAILY 12/10/21 12/10/21 62.5 mcg-vilant 25 mcg inhalat.powder (Trelegy Ellipta) pantoprazole 40 mg tablet,delayed 40 mg PO BID 12/10/21 12/10/21 release ropinirole 0.25 mg tablet 0.25 mg PO HS 12/10/21 12/10/21 rosuvastatin 20 mg tablet 20 mg PO DAILY 12/10/21 12/10/21 sertraline 100 mg tablet 100 mg PO BID 12/10/21 12/10/21 simvastatin 40 mg tablet 40 mg PO HS 12/10/21 12/10/21 trazodone 50 mg tablet 50 mg PO HS 12/10/21 12/10/21 Allergies Allergy/AdvReac Type Severity Reaction Status Date / Time No Known Allergies Allergy Verified 02/02/23 20:18 Review of Systems Review of Systems: All systems reviewed & are unremarkable except as noted in HPI and below Constitutional: Constitutional: Denies chills, Reports fatigue and Denies fever(s) ENT: Denies nasal congestion and Denies sore throat Cardiovascular: Cardiovascular: Reports no additional cardiovascular complaints Respiratory: Respiratory: Reports cough, Denies dyspnea and Denies wheezing Gastrointestinal: Gastrointestinal: Reports no additional gastrointestinal complaints Genitourinary: Genitourinary: Reports no additional female genitourinary complaints PMFSH Past Medical History Medical History Anxiety Arthritis Asthma COPD (chronic obstructive pulmonary disease) CVA (cerebral vascular accident) Depression Diabetes Folliculitis Gastritis Hyperlipemia Hypertension Lumbar radiculopathy ELIOT (obstructive sleep apnea) Surgical History Surgical History H/O cardiac catheterization H/O removal of cyst brain, unable to remove due to cyst being wrapped around spinal cord. 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
[2023-02-02] MEDS: KETOROLAC 15 MG/ML VIAL (*BKC) IV PUSH (20:49)
[2023-02-02] MEDS: SODIUM CHLORIDE 0.9% IV 1,000 ML 999 ML IV CONT (20:49)
[2023-02-02 20:56] LABS: Basophils Absolute Auto 0.1 K/mm3 (0.0-0.1); Basophils Percent Auto 0.8 % (0.2-1.2); Eosinophils Absolute Auto 0.1 K/mm3 (0-0.3); Eosinophils Percent Auto 1.5 % (0-4.4); Hematocrit 44.8 % (37.0-47.0); Hemoglobin 15.3 g/dL (12.0-15.0); Immature Granulocyte Absolute 0.02 K/mm3 (0.00-0.031); Immature Granulocyte Percent A 0.3 % (0-0.5); Lymphocytes Absolute Auto 1.87 K/mm3 (0.9-3.2); Lymphocytes Percent Auto 25.7 % (18.3-44.2); Mean Corpuscular HGB Conc 34.2 g/dl (32-36); Mean Corpuscular Hemoglobin 34.5 pg (26-34); Mean Corpuscular Volume 101.1 fl (80-100); Mean Platelet Volume 10.8 fl (7.4-10.4); Monocytes Absolute Auto 0.5 K/mm3 (0.1-0.6); Monocytes Percent Auto 7.2 % (2.6-8.5); Neutrophils Absolute Auto 4.7 K/mm3 (1.3-6.7); Neutrophils Percent Auto 64.5 % (45.5-73.1); Platelet Count Result 248 k/mm3 (150-375); Red Blood Count 4.43 M/mm3 (4.2-5.4); Red Cell Distribution Width 13.4 % (11.5-14.5); White Blood Count 7.3 K/mm3 (4.5-10.0)
[2023-02-02 21:04] LABS: Alveolar/Arterial O2 Gradient 38.1 mmHg; Base Excess ABG -2.4 mEq/l (+/-2.0); Carboxyhemoglobin 6.1 % THb (0-2.0); Fractional Inspired Oxygen 21 %; HCO3 ABG 20.7 mEq/l (22.0-26.0); Methemoglobin ABG 0.3 %THb (0-1.5); Oxygen Content ABG 18.1 %vol (16.0-22.0); Oxygen Saturation ABG 95.6 % (95.0-100.0); Oxyhemoglobin 88.6 % THb (90.0-100.0); PCO2 ABG 31.3 mmHg (35.0-45.0); PO2 ABG 74.2 mmHg (80.0-100.0); PO2 FiO2 Ratio Arterial Blood 3.53 %; Total Hemoglobin 14.5 g/dL (12.0-18.0); pH ABG 7.439 (7.350-7.450)
[2023-02-02 21:07] LABS: Alanine Aminotransferase 17 U/L (6-35); Albumin Level 4.5 g/dL (3.5-5.1); Alkaline Phosphatase 90 U/L (38-126); Anion Gap 9 mmol/L (8-16); Aspartate Amino Transferase 18 U/L (14-36); Bilirubin,Total 0.7 mg/dL (0.2-1.3); Blood Urea Nitrogen 12 mg/dL (7-17); Calcium 9.6 mg/dL (8.4-10.2); Carbon Dioxide 21 mmol/L (22-30); Chloride 107 mmol/L (98-107); Estimated CRCL calculation 71 ml/min; Estimated Glomerular Filt Rate > 60; Glucose 117 mg/dL (65-110); Potassium 3.6 mmol/L (3.4-5.0); Sodium 137 mmol/L (137-145)
[2023-02-02 21:07] LABS: Device ROOM AIR; Modified Allen's Test Pass; Site Drawn LEFT RADIAL
[2023-02-02 21:33] LABS: Influenza A QL RT-PCR Negative (Negative); Influenza B QL RT-PCR Negative (Negative); SARS-CoV-2 RNA PCR Negative (Negative)
[2023-02-02 21:50] LABS: Appearance Urine Cloudy (Clear); Bacteria Urine 4+ /hpf; Bilirubin Urine Negative (Negative); Blood Urine Negative (Negative); Color Urine Yellow (Yellow); Glucose Urine UA Negative (Negative); Ketones Urine Trace mg/dL (Negative); Leukocyte Esterase Ur 1+ LEU/UL (Negative); Nitrate Urine Positive (Negative); Protein Urine 1+ mg/dL (Negative); RBC Urine 0-2 /hpf (0-2); Specific Grav Ur 1.028 (1.001-1.035); Squamous Epithelial Cell Urine Few /hpf (Few); pH Urine 5.5 (5.0-9.0)
[2023-02-02 21:52] LABS: Add Urine Microscopic? YES
[2023-02-02 23:11] VITALS: BP 154/98; PULSE 78; RESP 18; O2SAT 100
[2023-02-02] MEDS: CEPHALEXIN 500 MG CAPSULE PO (23:11)
== END 2023-02-02 23:22 | disposition home or self-care (01) ==
PROVIDERS: Emergency Provider Emergency Medicine; PCP Emergency Medicine
DX: N39.0 Urinary tract infection, site not specified (principal); Z20.822 Contact with and (suspected) exposure to COVID-19; J44.9 Chronic obstructive pulmonary disease, unspecified; E11.9 Type 2 diabetes mellitus without complications; E78.5 Hyperlipidemia, unspecified; I10 Essential (primary) hypertension; G47.33 Obstructive sleep apnea (adult) (pediatric); F32.A Depression, unspecified; F41.9 Anxiety disorder, unspecified; F17.210 Nicotine dependence, cigarettes, uncomplicated; Z98.2 Presence of cerebrospinal fluid drainage device; Z86.73 Personal history of transient ischemic attack (TIA), and cerebral infarction without residual deficits; Z90.710 Acquired absence of both cervix and uterus; Z79.84 Long term (current) use of oral hypoglycemic drugs
CPT/HCPCS: 36415; 36600; 71046; 80053; 81001; 82375; 82805; 83050; 85025; 87077; 87086; 87186; 87636; 96361; 96374; 99284; A9270; J1885; J7030

== ENCOUNTER 2023-07-06 16:47 | Observation (INO) | payer OTHER, SELFPAY ==
[2023-07-06] VITALS (10 sets, daily range): BP systolic 105–123; BP diastolic 71–84; PULSE 80–88; RESP 14–22; TEMP 36.3; O2SAT 95–100; BMI 30.7
--- NOTE | ~2023-07-06 | XR_ITS ---
EXAMINATION: XR chest 2V DATE: 07/06/2023 17:53 INDICATION: Cough and COPD TECHNIQUE: PA and lateral views of the chest were obtained. COMPARISON: Chest radiograph dated 02/02/23 FINDINGS: The lungs are clear with no focal airspace opacities, pulmonary edema, pleural effusion or pneumothor ax. The cardiomediastinal silhouette is normal. Multiple surgical clips at the right axilla. Likely v entriculoperitoneal shunt which projects across the visualized left base of the neck, the left chest and visualized left upper quadrant of the abdomen. Old healed fracture of the posterior right fifth r ib. IMPRESSION: 1. No acute cardiopulmonary disease. Reviewed, dictated and finalized at location A.
--- NOTE | 2023-07-06 17:22 | ED.GENADULT ---
HPI - General Adult General Chief complaint: Upper Respiratory Infection Stated complaint: cough x3 weeks, headache, back/neck pain, dizzy Time Seen by Provider: 07/06/23 17:22 Focused HPI: Bev Grossman is a 58 y/o female who presents with reports of having a cough for about 3 weeks, intermittently productive, body aches/ fatigued. She report hx of asthma/ COPD and wears 2L of O2 at baseline when she is up walking around and lately she has been increasing it to 4L. Reports feeling chills/ no known fevers No sore throat. GENERAL: in no acute distress. HEAD: Normocephalic, atraumatic. CHEST: Clear to auscultation. ?No respiratory distress. HEART: Regular rate and rhythm.? NEURO: ?Alert and oriented x3. Patient screened in triage and initial orders placed.? ?Additional care and disposition to be based upon?diagnostic testing and treatment. Related Data Home Medications Medication Instructions Recorded Confirmed montelukast 10 mg tablet 10 mg PO HS 12/09/19 07/07/23 (Singulair) metformin 500 mg tablet 1,000 mg PO BID 06/07/21 07/07/23 clonidine HCl 0.1 mg tablet 0.1 mg PO HS 09/25/21 07/07/23 dicyclomine 10 mg capsule 10 mg PO QID 09/25/21 07/07/23 furosemide 40 mg tablet 40 mg PO DAILY 09/25/21 07/07/23 losartan 50 mg tablet 50 mg PO DAILY 09/25/21 07/07/23 metoclopramide HCl 10 mg tablet 10 mg PO TID 09/25/21 07/07/23 albuterol sulfate 90 mcg/actuation 2 puff inhalation QID PRN 12/10/21 07/07/23 aerosol inhaler (ProAir HFA) Shortness Of Breath albuterol sulfate 90 mcg/actuation 2 puff inhalation QID PRN 12/10/21 07/07/23 aerosol inhaler (Ventolin HFA) Shortness Of Breath cholecalciferol (vitamin D3) 25 25 mcg PO DAILY 12/10/21 07/07/23 mcg (1,000 unit) tablet (Vitamin D3) pantoprazole 40 mg tablet,delayed 40 mg PO BID 12/10/21 07/07/23 release ropinirole 0.25 mg tablet 0.25 mg PO HS 12/10/21 07/07/23 rosuvastatin 20 mg tablet 20 mg PO DAILY 12/10/21 07/07/23 sertraline 100 mg tablet 100 mg PO BID 12/10/21 07/07/23 amitriptyline 50 mg tablet 50 mg PO HS 07/07/23 07/07/23 diltiazem HCl 360 mg 360 mg PO DAILY 07/07/23 07/07/23 capsule,extended release 24 hr loratadine 10 mg tablet 10 mg PO DAILY 07/07/23 07/07/23 sitagliptin phosphate 50 mg tablet 50 mg PO DAILY 07/07/23 07/07/23 (Januvia) Allergies Allergy/AdvReac Type Severity Reaction Status Date / Time No Known Allergies Allergy Verified 02/02/23 20:18 [facility] Past Medical History Medical History Anxiety Arthritis Asthma COPD (chronic obstructive pulmonary disease) CVA (cerebral vascular accident) Depression Diabetes Folliculitis Gastritis Hyperlipemia Hypertension Lumbar radiculopathy ELIOT (obstructive sleep apnea) Surgical History Surgical History H/O cardiac catheterization H/O removal of cyst brain, unable to remove due to cyst being wrapped around spinal cord. H/O: hysterectomy History of delivery S/P UNIVERSITY REGISTRAR shunt Family History Family History Father Diabetes mellitus Hypertension Mother Hypertension Other Arthritis Asthma Cancer Cerebrovascular accident Depression Family history of arthritis Family history of heart disease in male family member before age 55 Family history of lung disease High cholesterol Social History Social History Smoking packs per day: 0.5 Smoking cigarettes per day: 10.0 Years smoked: 45 Smoking pack-years: 22.50 Smoking status: Current every day smoker Tobacco type: cigarettes Second hand tobacco smoke exposure: Yes Alcohol intake: former Substance use: never Substance use type: does not use Do You Feel Safe in your Home?: Yes Lack of Transportation: YES Lack of Food: Sometimes True Current Housing: I
[2023-07-06 18:32] LABS: Basophils Absolute Auto 0.1 K/mm3 (0.0-0.1); Basophils Percent Auto 0.6 % (0.2-1.2); Eosinophils Absolute Auto 0.2 K/mm3 (0-0.3); Eosinophils Percent Auto 1.5 % (0-4.4); Hematocrit 44.5 % (37.0-47.0); Hemoglobin 14.9 g/dL (12.0-15.0); Immature Granulocyte Percent A 0.9 % (0-0.5); Lymphocytes Absolute Auto 2.75 K/mm3 (0.9-3.2); Mean Corpuscular HGB Conc 33.5 g/dl (32-36); Mean Corpuscular Hemoglobin 33.5 pg (26-34); Monocytes Absolute Auto 0.7 K/mm3 (0.1-0.6); Monocytes Percent Auto 6.1 % (2.6-8.5); Neutrophils Absolute Auto 7.7 K/mm3 (1.3-6.7); Neutrophils Percent Auto 66.9 % (45.5-73.1); Platelet Count Result 319 k/mm3 (150-375); Red Blood Count 4.45 M/mm3 (4.2-5.4); Red Cell Distribution Width 13.8 % (11.5-14.5); White Blood Count 11.5 K/mm3 (4.5-10.0)
[2023-07-06 18:50] LABS: Alanine Aminotransferase 20 U/L (6-35); Albumin Level 4.8 g/dL (3.5-5.1); Alkaline Phosphatase 117 U/L (38-126); Anion Gap 10 mmol/L (4-12); Aspartate Amino Transferase 19 U/L (14-36); Bilirubin,Total 0.6 mg/dL (0.2-1.3); Blood Urea Nitrogen 14 mg/dL (7-17); Calcium 10.3 mg/dL (8.4-10.2); Carbon Dioxide 26 mmol/L (22-30); Chloride 102 mmol/L (98-107); Estimated CRCL calculation 52 ml/min; Estimated Glomerular Filt Rate 51; Glucose 107 mg/dL (65-110); Potassium 4.3 mmol/L (3.4-5.0); Sodium 138 mmol/L (137-145)
[2023-07-06 18:59] LABS: NT Pro B Type Natriuretic Pept 672 pg/mL (19.9-100)
[2023-07-06 19:11] LABS: Influenza A QL RT-PCR Negative (Negative); Influenza B QL RT-PCR Negative (Negative); RSV RNA, RT-PCR Negative (Negative); SARS-CoV-2 RNA PCR Negative (Negative)
[2023-07-06] MEDS: MORPHINE SULFATE (*CRX) 2 MG/ML INJ IV PUSH (19:38)
[2023-07-06] MEDS: methylPREDNISolone SOD SUCC 125 MG VIAL IV PUSH (19:38)
[2023-07-06] MEDS: IPRATROPIUM 0.5 MG/ALBUTEROL SULFATE 2.5 MG AMPUL.NEB 3 ML INHALATION (19:39)
[2023-07-06] MEDS: AZITHROMYCIN 500 MG/NS 250 ML 500 MG/250 ML BAG 250 MG IVPB (20:15)
--- NOTE | 2023-07-06 22:26 | PC.NURSE ---
This patient, Bev Grossman, was admitted to [facility] Surg Room 323-01. Patient/family oriented to hospital policies and general routines including ID bracelet, bed and alarms, visiting hours, pain management, procedures, bathroom and other care routines, personal items, smoking policy, room service/diet, and visiting hours. Information on how to activate the Rapid Response Team has been discussed. Patient/Family are encouraged to report perceived risks to care and to ask questions if they do not understand what they are told or what they should do.
[2023-07-06] MEDS: ACETAMINOPHEN 500 MG TABLET 1000 MG PO (23:08)
[2023-07-07] VITALS (16 sets, daily range): BP systolic 111–126; BP diastolic 65–84; PULSE 75–96; RESP 14–20; TEMP 36.1–36.6; O2SAT 95–100
[2023-07-07] MEDS: IPRATROPIUM 0.5 MG/ALBUTEROL SULFATE 2.5 MG AMPUL.NEB 3 ML INHALATION ×4 (02:33→20:33)
[2023-07-07] MEDS: ACETAMINOPHEN 500 MG TABLET 1000 MG PO ×2 (08:40→16:01)
--- NOTE | 2023-07-07 09:42 | PM.IMHP ---
H&P: HPI History of Present Illness Date/Time: 07/07/23 09:42 Chief Complaint: cough x 3 week Narrative: Bev Grossman is a 58 y/o female admitted from ER for cough for about 3 weeks, intermittently productive, body aches/ fatigued. She report hx of asthma/ COPD and wears 2L of? O2 at baseline when she is up walking around and lately she has been increasing it to 4L. Reports feeling chills/ no known fevers No sore throat. Pt is a poor historian- unclear about her living situation- reports staying int he hot with multiple other family members, wearing o2 at the hotel as well as CPAP- reports following up with PCP on a regular basis but un=sure when she was seen last. States taking Bactrum for abscess but according to chart review it was in 12/11/21. Per nurse report, pt's pharmacy was called and even though she reports taking medications, pharmacy reports not refilling meds for a while. She is requesting morphine right away -states that she always get morphine when she is in the hospital for her hip and back pian which are chronic. Review of Systems Cardiovascular: Cardiovascular: Denies chest pain and Denies diaphoresis Respiratory: Respiratory: Reports cough and Reports dyspnea on exertion Gastrointestinal: Gastrointestinal: Denies abdominal pain Musculoskeletal: Musculoskeletal: Reports back pain Comments: chronic back pain, chronic hip pain Psychiatric: Psychiatric: Reports anxiety PMFSH Past Medical History Medical History Anxiety Arthritis Asthma COPD (chronic obstructive pulmonary disease) CVA (cerebral vascular accident) Depression Diabetes Folliculitis Gastritis Hyperlipemia Hypertension Lumbar radiculopathy ELIOT (obstructive sleep apnea) Surgical History Surgical History H/O cardiac catheterization H/O removal of cyst brain, unable to remove due to cyst being wrapped around spinal cord. 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 Family History Family History Father Diabetes mellitus Hypertension Mother Hypertension Other Arthritis Asthma Cancer Cerebrovascular accident Depression Family history of arthritis Family history of heart disease in male family member before age 55 Family history of lung disease High cholesterol Social History Social History Smoking packs per day: 0.5 Smoking cigarettes per day: 10.0 Years smoked: 45 Smoking pack-years: 22.50 Smoking status: Current every day smoker Tobacco type: cigarettes Second hand tobacco smoke exposure: Yes Alcohol intake: former Substance use: never Substance use type: does not use Do You Feel Safe in your Home?: Yes Lack of Transportation: YES Lack of Food: Sometimes True Current Housing: I Do Not Have Housing Concerned About Future Housing: YES Difficulty Paying Gas/Electric Bills: No Difficulty Paying for Meds: No Currently Unemployed: No Education: Decline to Answer Difficulty w/ Childcare or Family Care: No Living arrangements: with family Occupation/Education: unemployed Gender identity (if verbalized by the patient): Female Sexual Orientation (if Verbalized by the Patient): Straight or Heterosexual Spiritual care concerns: No Meds Home Medications and Allergies Home Medications Medication Instructions Recorded Confirmed Type montelukast 10 mg tablet 10 mg PO HS 12/09/19 07/07/23 History (Singulair) metformin 500 mg tablet 1,000 mg PO BID 06/07/21 07/07/23 History clonidine HCl 0.1 mg tablet 0.1 mg PO HS 09/25/21 07/07/23 History dicyclomine 10 mg capsule 10 mg PO QID 09/25/21 07/07/23 History furosemide 40 mg tablet 40 mg PO DAILY 09/25/21 07/07/23 History losartan 50 mg tablet 50 mg
[2023-07-07] MEDS: DICYCLOMINE HCL 10 MG CAPSULE PO ×3 (10:39→21:15)
[2023-07-07] MEDS: dilTIAZem HCL CD 180 MG CAP.24HR 360 MG PO (10:39)
[2023-07-07] MEDS: CHOLECALCIFEROL 1,000 UNITS TABLET 1000 UNITS PO (10:39)
[2023-07-07] MEDS: SERTRALINE HCL 50 MG TABLET 100 MG PO ×2 (10:39→16:02)
[2023-07-07] MEDS: ROSUVASTATIN 10 MG TABLET 20 MG PO (10:39)
[2023-07-07] MEDS: LORATADINE 10 MG TABLET PO (10:39)
[2023-07-07] MEDS: LOSARTAN POTASSIUM 50 MG TABLET PO (10:39)
[2023-07-07] MEDS: PANTOPRAZOLE 40 MG TABLET PO ×2 (10:39→16:01)
[2023-07-07] MEDS: METOCLOPRAMIDE HCL 10 MG TABLET PO ×2 (10:40→16:01)
[2023-07-07] MEDS: SITagliptin PHOSPHATE 50 MG TABLET PO (10:40)
[2023-07-07] MEDS: SULFAMETHOXAZOLE/TRIMETHOPRIM 800/160 MG DS TABLET 1 TAB PO (12:07)
[2023-07-07 16:55] LABS: Glucose Point of Care 187 mg/dl (65-105)
[2023-07-07 19:55] LABS: Glucose Point of Care 192 mg/dl (65-105)
[2023-07-07] MEDS: AZITHROMYCIN 500 MG/NS 250 ML 500 MG/250 ML BAG 200 MG IVPB (21:14)
[2023-07-07] MEDS: rOPINIRole HCL 0.25 MG TABLET PO (21:15)
[2023-07-07] MEDS: AMITRIPTYLINE HCL 25 MG TABLET 50 MG PO (21:15)
[2023-07-07] MEDS: MONTELUKAST SODIUM 10 MG TABLET PO (21:15)
[2023-07-07] MEDS: cloNIDine HCL 0.1 MG TABLET PO (21:15)
[2023-07-08] VITALS (12 sets, daily range): BP systolic 114; BP diastolic 65–71; PULSE 70–86; RESP 18–20; TEMP 36.4; O2SAT 96–100
[2023-07-08] MEDS: IPRATROPIUM 0.5 MG/ALBUTEROL SULFATE 2.5 MG AMPUL.NEB 3 ML INHALATION ×3 (02:41→13:59)
[2023-07-08 03:54] LABS: Hemoglobin A1C 5.2 % (<5.7)
[2023-07-08] MEDS: ACETAMINOPHEN 500 MG TABLET 1000 MG PO ×2 (04:35→11:28)
[2023-07-08 08:03] LABS: Glucose Point of Care 110 mg/dl (65-105)
[2023-07-08] MEDS: ROSUVASTATIN 10 MG TABLET 20 MG PO (09:04)
[2023-07-08] MEDS: DICYCLOMINE HCL 10 MG CAPSULE PO ×2 (09:04→13:15)
[2023-07-08] MEDS: METOCLOPRAMIDE HCL 10 MG TABLET PO ×2 (09:04→13:15)
[2023-07-08] MEDS: CHOLECALCIFEROL 1,000 UNITS TABLET 1000 UNITS PO (09:05)
[2023-07-08] MEDS: ENOXAPARIN 40 MG/0.4 ML SYRINGE SUB-Q (09:05)
[2023-07-08] MEDS: LORATADINE 10 MG TABLET PO (09:05)
[2023-07-08] MEDS: PANTOPRAZOLE 40 MG TABLET PO (09:05)
[2023-07-08] MEDS: SERTRALINE HCL 50 MG TABLET 100 MG PO (09:05)
--- NOTE | 2023-07-08 10:11 | PM.IMPN ---
Progress Note: A&P Assessment and Plan (1) Acute exacerbation of chronic obstructive pulmonary disease: Code(s): J44.1 - Chronic obstructive pulmonary disease with (acute) exacerbation Status: Acute Assessment and Plan: - azithromycin IV, received dexamethazone x 1 - albuterol,duoneb - not on any oxygen - monitor - if stable today- anticipate discharge home (2) Diabetes: Code(s): E11.9 - Type 2 diabetes mellitus without complications Status: Acute Assessment and Plan: unsure if any home regimen- reports meds- but pharmacy have not refilled meds in awhile will need a close f/u with pcp when discharged - will check hga1c - on sitagliptin and metformin 1000mg bid (3) Hyperlipemia: Code(s): E78.5 - Hyperlipidemia, unspecified Status: Acute Assessment and Plan: -continue statin (4) Hypertension: Code(s): I10 - Essential (primary) hypertension Status: Acute Assessment and Plan: -losartan-continue -monitor -vitals (5) Tobacco abuse: Code(s): Z72.0 - Tobacco use Status: Acute Plan GI prophylaxis: n/a DVT: lovenox Lines: peripheral IV Code status: full code Time Spent With Patient Time with patient: 15 - 25 minutes Subjective Date/time seen: 07/08/23 10:11 Interval history: examined today. c/o chronic back pain. still cough but on RA Review of Systems Constitutional: Constitutional: Denies chills Eyes: Eyes: Denies blurry vision Cardiovascular: Cardiovascular: Denies chest pain, Denies diaphoresis and Reports dyspnea on exertion Respiratory: Respiratory: Reports cough and Reports dyspnea on exertion Gastrointestinal: Gastrointestinal: Denies abdominal pain Musculoskeletal: Musculoskeletal: Reports back pain Comments: chronic Psychiatric: Psychiatric: Reports anxiety Objective Data Vital Signs Vital Signs: Vital Signs - 24 hr 07/07/23 14:00 07/07/23 14:36 07/07/23 14:45 Temperature 97.1 F L Pulse Rate 96 80 83 Respiratory Rate 14 18 18 Blood Pressure 126/65 Pulse Oximetry 100 Oxygen Delivery Oxygen Flow Rate 07/07/23 16:00 07/07/23 20:33 07/07/23 20:35 Temperature Pulse Rate 84 80 Respiratory Rate 18 Blood Pressure Pulse Oximetry 95 Oxygen Delivery Oxygen Flow Rate 2 07/07/23 20:41 07/07/23 20:51 07/08/23 02:41 Temperature 97.0 F L Pulse Rate 84 75 80 Respiratory Rate 18 20 18 Blood Pressure 111/73 Pulse Oximetry 98 Oxygen Delivery Oxygen Flow Rate 07/08/23 02:51 07/07/23 20:00 07/08/23 00:00 Temperature Pulse Rate 86 75 70 Respiratory Rate 18 Blood Pressure Pulse Oximetry Oxygen Delivery Oxygen Flow Rate 07/08/23 05:05 07/08/23 07:55 07/08/23 07:55 Temperature 97.5 F L Pulse Rate 73 71 Respiratory Rate 20 18 Blood Pressure 114/65 Pulse Oximetry 100 100 Oxygen Delivery Nasal Cannula Oxygen Flow Rate 2 07/08/23 08:03 Temperature Pulse Rate 74 Respiratory Rate 18 Blood Pressure Pulse Oximetry Oxygen Delivery Oxygen Flow Rate Intake/Output Intake/Output: Intake & Output 07/05/23 07/06/23 07/07/23 07/08/23 23:59 23:59 23:59 23:59 Intake Total 250 2610 830 Output Total 1150 700 Balance 250 1460 130 Meds/Results Medications: Active Medications Generic Name Dose Route Start Last Admin Trade Name Freq PRN Reason Stop Dose Admin Acetaminophen 1,000 mg 07/06/23 22:49 07/08/23 04:35 Acetaminophen 500 Mg Tablet PO 1,000 mg Q6H PRN Administration Pain 1-3 or Fever Albuterol 2 puff 07/07/23 09:44 Albuterol Sulfate (*Sp) Aerosol 1 Puff INHALATION QID PRN Shortness Of Breath Albuterol/Ipratropium 3 ml 07/07/23 02:00 07/08/23 07:55 Ipratropium 0.5 Mg/Albuterol Sulfate 2.5 Mg Ampul.Neb 3 Ml INHALATION 3 ml Q6HRT LORENE Administration Amitriptyline HCl 50 mg 07/07/23 21:00 07/07/23 21:15 Amitriptyline Hcl 25 Mg Tablet PO
[2023-07-08 11:25] LABS: Glucose Point of Care 96 mg/dl (65-105)
--- NOTE | 2023-07-08 14:21 | PM.DS ---
DS: Admitting Diagnosis Discharge Date 07/08/23 Admitting Diagnosis coughm asthma, copd exacerbation DS: Discharge Diagnosis Discharge Diagnosis (1) Acute exacerbation of chronic obstructive pulmonary disease: Code(s): J44.1 - Chronic obstructive pulmonary disease with (acute) exacerbation Status: Acute Assessment and Plan: - azithromycin IV, received dexamethazone x 1 - albuterol,duoneb - not on any oxygen - monitor - if stable today- anticipate discharge home (2) Diabetes: Code(s): E11.9 - Type 2 diabetes mellitus without complications Status: Acute Assessment and Plan: unsure if any home regimen- reports meds- but pharmacy have not refilled meds in awhile will need a close f/u with pcp when discharged - will check hga1c - on sitagliptin and metformin 1000mg bid (3) Hyperlipemia: Code(s): E78.5 - Hyperlipidemia, unspecified Status: Acute Assessment and Plan: -continue statin (4) Hypertension: Code(s): I10 - Essential (primary) hypertension Status: Acute Assessment and Plan: -losartan-continue -monitor -vitals (5) Tobacco abuse: Code(s): Z72.0 - Tobacco use Status: Acute Plan GI prophylaxis: n/a DVT: lovenox Lines: peripheral IV Code status: full code DS: Summary Hospital Course Hospital Course: Bev Grossman is a 58 y/o female admitted from ER for cough for about 3 weeks, intermittently productive, body aches/ fatigued. She report hx of asthma/ COPD and wears 2L of? O2 at baseline when she is up walking around and lately she has been increasing it to 4L. Reports feeling chills/ no known fevers No sore throat. Pt is a poor historian- unclear about her living situation- reports staying int he hotel with multiple other family members, wearing o2 at the hotel as well as CPAP- reports following up with PCP on a regular basis but un=sure when she was seen last.? States taking Bactrim for abscess but according to chart review it was in 12/11/21.? Per nurse report, pt's pharmacy was called and even though she reports taking medications, pharmacy reports not refilling meds for a while. She is requesting morphine right away -states that she always get morphine when she is in the hospital for her hip and back pain which are chronic. ?She had been taking tylenol here in the hospital. Care coord. provided resources for her for pcp, housing, transportation assistance and medication help. Status at Discharge Cognitive/behavioral status at discharge: pt is alert, oriented on RA, in no resp distress, no sob or cough observed. Functional status at discharge: wheelchair bound (uses wheelchair due to chronic back pain) Overall status at discharge: patient is back to baseline Time Spent with Patient Time attestation: Total time spent providing and/or coordinating discharge services: Time spent: Less than 30 minutes Exam Const: General: comfortable and no acute distress Eyes: General: appearance normal, both eyes and all related structures Resp: Effort & Inspection: normal respiratory effort Auscultation: clear to auscultation bilaterally, no crackles, no rales, no rhonchi, no wheezes and lung sounds not diminished Cardio: Rate: regular rate Rhythm: regular rhythm GI: GI Palp: Yes Soft to palpation, No Firmness to palpation present (GI) and No Tenderness to palpation present (GI) Auscultation: normal bowel sounds Skin: General skin exam: normal color Neuro: Sensory Exam: normal sensation Extrem: General: normal to inspection Psych: Mental Status: mental status grossly normal Affect: normal affect DS: Data Data Completed and Pending Completed studies during hospitalization: chest xray- negative Pending studies at discharge: RX for remaining doses for azithromycin will be sent home Labs on day of discharge: Labs from last 24 hours 07/08/23 07/08/23 07/07/23 11:22 07:54 19:27 POC Capillary Glucose 96 110 H 192 H Hem
--- NOTE | 2023-07-08 15:21 | PC.NURSE ---
IV out, papers signed, patients son is here to take her home by private car. denies any questions.
== END 2023-07-08 15:30 | disposition home or self-care (01) ==
LOC: ANHED 20:10 → ANH3MEDSUR 21:02
PROVIDERS: Nurse Practitioner; Nurse Practitioner Family; Admitting Provider Internal Medicine; Emergency Provider Emergency Medicine; PCP Emergency Medicine; Visit Provider Internal Medicine
DX: J44.1 Chronic obstructive pulmonary disease with (acute) exacerbation (principal); Z99.81 Dependence on supplemental oxygen; E11.9 Type 2 diabetes mellitus without complications; E78.5 Hyperlipidemia, unspecified; I10 Essential (primary) hypertension; G47.33 Obstructive sleep apnea (adult) (pediatric); F41.9 Anxiety disorder, unspecified; F32.A Depression, unspecified; F17.210 Nicotine dependence, cigarettes, uncomplicated; Z86.73 Personal history of transient ischemic attack (TIA), and cerebral infarction without residual deficits; Z98.2 Presence of cerebrospinal fluid drainage device; Z79.51 Long term (current) use of inhaled steroids; Z79.84 Long term (current) use of oral hypoglycemic drugs; Z20.822 Contact with and (suspected) exposure to COVID-19
CPT/HCPCS: 36415; 71046; 80053; 82948; 83036; 83880; 85025; 87637; 94640; 96365; 96372; 96375; 99285; A9270; G0378; J0456; J1650; J2270; J2919

== ENCOUNTER 2023-07-24 00:23 | Emergency (ER) | payer OTHER, SELFPAY ==
--- NOTE | ~2023-07-24 | XR_ITS ---
EXAMINATION: XR chest 1V portable DATE: 07/24/2023 01:14 INDICATION: Chest pain. Shortness of breath. TECHNIQUE: A single frontal view of the chest was obtained on 2 radiographs. COMPARISON: Chest 2 views 07/06/2023 FINDINGS: There is no pneumonia, pleural effusion, or pneumothorax. The heart size is normal. Surgica l clips overlie right axilla. A left-sided ventriculoperitoneal shunt is noted. IMPRESSION: 1. No acute cardiopulmonary disease. Reviewed, dictated and finalized at location E.
--- NOTE | ~2023-07-24 | CT_ITS ---
EXAMINATION: CTA chest PE protocol DATE: 07/24/2023 02:16 INDICATION: Chest tightness. Shortness of breath. TECHNIQUE: Computed tomography angiography (CTA) of the chest was performed with 100 mL Omnipaque-350 intravenous contrast timed to evaluate the pulmonary arteries. Coronal maximum intensity projection 3D-reconstructions were created by the technologist. Automated exposure control and iterative reconst ruction technique were employed. The dose-length product was 549.74 mGy-cm. COMPARISON: Chest CT 01/02/2023 FINDINGS: There is mild emphysema. No pleural effusion. The heart size is normal. No pericardial effu tanja. There is no pulmonary embolus. There is a small sliding hiatal hernia. There is cortical thinni ng of the kidneys. There is mild thoracic spondylosis. There is a chronic compression fracture of L1. IMPRESSION: 1. No pulmonary embolus. 2. Mild emphysema. Reviewed, dictated and finalized at location E.
[2023-07-24 00:27] VITALS: BP 140/101; PULSE 111; RESP 35; TEMP 36.8; O2SAT 100
--- NOTE | 2023-07-24 00:34 | ECG_ITS ---
SEE SCANNED COPY FOR CONFIRMED REPORT MTDD
[2023-07-24 00:42] LABS: Basophils Absolute Auto 0.1 K/mm3 (0.0-0.1); Basophils Percent Auto 0.8 % (0.2-1.2); Eosinophils Absolute Auto 0.3 K/mm3 (0-0.3); Hematocrit 39.3 % (37.0-47.0); Hemoglobin 13.4 g/dL (12.0-15.0); Immature Granulocyte Absolute 0.05 K/mm3 (0.00-0.031); Immature Granulocyte Percent A 0.5 % (0-0.5); Lymphocytes Absolute Auto 1.74 K/mm3 (0.9-3.2); Lymphocytes Percent Auto 16.4 % (18.3-44.2); Mean Corpuscular HGB Conc 34.1 g/dl (32-36); Mean Corpuscular Hemoglobin 34.3 pg (26-34); Mean Corpuscular Volume 100.5 fl (80-100); Mean Platelet Volume 10.4 fl (7.4-10.4); Monocytes Absolute Auto 0.7 K/mm3 (0.1-0.6); Monocytes Percent Auto 6.3 % (2.6-8.5); Neutrophils Absolute Auto 7.8 K/mm3 (1.3-6.7); Platelet Count Result 282 k/mm3 (150-375); Red Blood Count 3.91 M/mm3 (4.2-5.4); Red Cell Distribution Width 13.9 % (11.5-14.5); White Blood Count 10.6 K/mm3 (4.5-10.0)
[2023-07-24 00:52] LABS: INR 0.9; Prothrombin Time 12.6 Seconds (11.1-14.7)
[2023-07-24 00:53] LABS: Partial Thromboplastin Time 30.6 Seconds (22.3-36.8)
[2023-07-24 01:05] LABS: Alanine Aminotransferase 17 U/L (6-35); Albumin Level 4.8 g/dL (3.5-5.1); Alkaline Phosphatase 118 U/L (38-126); Anion Gap 13 mmol/L (4-12); Aspartate Amino Transferase 23 U/L (14-36); Bilirubin,Total 0.6 mg/dL (0.2-1.3); Blood Urea Nitrogen 28 mg/dL (7-17); Calcium 9.6 mg/dL (8.4-10.2); Carbon Dioxide 22 mmol/L (22-30); Chloride 98 mmol/L (98-107); Estimated CRCL calculation 36 ml/min; Estimated Glomerular Filt Rate 33; Glucose 96 mg/dL (65-110); Lipase 127 U/L (23-300); Potassium 4.4 mmol/L (3.4-5.0); Sodium 133 mmol/L (137-145)
[2023-07-24 01:13] LABS: Troponin I < 0.012 ng/mL (0.000-0.034)
--- NOTE | 2023-07-24 01:35 | ED.CHESTPAIN ---
HPI - Chest Pain General Chief Complaint: Chest Pain Stated Complaint: chest pain Time Seen by Provider: 07/24/23 01:16 Source: patient Limitations: no limitations History of Present Illness HPI narrative: Patient is a 58-year-old female presents to the emergency department complaining of chest tightness and difficulty breathing. States has been going on for the past approximately 4 days and was initially common ago in an nausea, or constant since about noon. Patient has been trying her breathing treatments at home without any significant relief. Patient has also been taking home medications as prescribed. Patient denies history of blood clots. Patient has not noticed anything that made it better or worse. Patient is that she is typically on 3 L of oxygen baseline and had to go up to 5 L. patient admits to history of heart failure but denies having stents in her. Patient is to history of high blood pressure and diabetes and cholesterol abnormalities. Patient is currently still smoker and smokes about 5 cigarettes daily. Patient has the tightness was in the middle of her chest somewhat to her left side. Patient denies numbness, weakness, changes to her chronic cough. Related Data Home Medications Medication Instructions Recorded Confirmed montelukast 10 mg tablet 10 mg PO HS 12/09/19 07/07/23 (Singulair) metformin 500 mg tablet 1,000 mg PO BID 06/07/21 07/07/23 clonidine HCl 0.1 mg tablet 0.1 mg PO HS 09/25/21 07/07/23 dicyclomine 10 mg capsule 10 mg PO QID 09/25/21 07/07/23 furosemide 40 mg tablet 40 mg PO DAILY 09/25/21 07/07/23 losartan 50 mg tablet 50 mg PO DAILY 09/25/21 07/07/23 metoclopramide HCl 10 mg tablet 10 mg PO TID 09/25/21 07/07/23 albuterol sulfate 90 mcg/actuation 2 puff inhalation QID PRN 12/10/21 07/07/23 aerosol inhaler (ProAir HFA) Shortness Of Breath albuterol sulfate 90 mcg/actuation 2 puff inhalation QID PRN 12/10/21 07/07/23 aerosol inhaler (Ventolin HFA) Shortness Of Breath cholecalciferol (vitamin D3) 25 25 mcg PO DAILY 12/10/21 07/07/23 mcg (1,000 unit) tablet (Vitamin D3) pantoprazole 40 mg tablet,delayed 40 mg PO BID 12/10/21 07/07/23 release ropinirole 0.25 mg tablet 0.25 mg PO HS 12/10/21 07/07/23 rosuvastatin 20 mg tablet 20 mg PO DAILY 12/10/21 07/07/23 sertraline 100 mg tablet 100 mg PO BID 12/10/21 07/07/23 amitriptyline 50 mg tablet 50 mg PO HS 07/07/23 07/07/23 diltiazem HCl 360 mg 360 mg PO DAILY 07/07/23 07/07/23 capsule,extended release 24 hr loratadine 10 mg tablet 10 mg PO DAILY 07/07/23 07/07/23 sitagliptin phosphate 50 mg tablet 50 mg PO DAILY 07/07/23 07/07/23 (Januvia) Allergies Allergy/AdvReac Type Severity Reaction Status Date / Time No Known Allergies Allergy Verified 02/02/23 20:18 Review of Systems Review of Systems: A 10 system review of systems was completed on the patient and is negative except for what is stated in the HPI. Nursing and ancillary documentation was reviewed. [facility] Past Medical History Medical History Anxiety Arthritis Asthma COPD (chronic obstructive pulmonary disease) CVA (cerebral vascular accident) Depression Diabetes Folliculitis Gastritis Hyperlipemia Hypertension Lumbar radiculopathy ELIOT (obstructive sleep apnea) Surgical History Surgical History H/O cardiac catheterization H/O removal of cyst brain, unable to remove due to cyst being wrapped around spinal cord. H/O: hysterectomy History of delivery S/P OXYACETYLENE WELDER shunt Family History Family History Father Diabetes mellitus Hypertension Mother Hypertension Other Arthritis Asthma Cancer Cerebrovascular accident Depression Family history of arthritis Family history of heart disease in male family member before age 55 Family history of lung disease High c
[2023-07-24] MEDS: methylPREDNISolone SOD SUCC 125 MG VIAL IV PUSH (01:47)
[2023-07-24] MEDS: SODIUM CHLORIDE 0.9% IV 1,000 ML 999 ML IV CONT ×2 (01:49→03:16)
[2023-07-24] MEDS: MORPHINE SULFATE (*CRX) 4 MG/ML INJ IV PUSH (02:16)
[2023-07-24] MEDS: IPRATROPIUM 0.5 MG/ALBUTEROL SULFATE 2.5 MG AMPUL.NEB 3 ML INHALATION ×3 (02:18→02:23)
[2023-07-24 02:21] VITALS: PULSE 91; RESP 26
[2023-07-24 02:21] LABS: Magnesium 1.8 mg/dL (1.6-2.3)
[2023-07-24 02:29] LABS: NT Pro B Type Natriuretic Pept 125 pg/mL (19.9-100)
[2023-07-24 03:01] VITALS: BP 101/55; PULSE 99; RESP 20; O2SAT 100
[2023-07-24 04:03] LABS: Fractional Inspired Oxygen 28 %; HCO3 VBG 22.1 mEq/l (24.0-30.0); PCO2 VBG 37.1 mmHg (42.0-48.0); PO2 VBG 43.1 mmHg (35.0-45.0); pH VBG 7.393 (7.300-7.400)
[2023-07-24 04:04] LABS: Device NASAL CANNULA
[2023-07-24 04:11] VITALS: BP 117/69; PULSE 105; RESP 17; O2SAT 100
[2023-07-24 04:36] LABS: Troponin I < 0.012 ng/mL (0.000-0.034)
[2023-07-24 04:48] LABS: Influenza A QL RT-PCR Negative (Negative); Influenza B QL RT-PCR Negative (Negative); RSV RNA, RT-PCR Negative (Negative); SARS-CoV-2 RNA PCR Negative (Negative)
[2023-07-24] MEDS: HYDROcodone/acetaminophen (*CRX) 5-325 MG TABLET 1 TAB PO (04:53)
[2023-07-24 06:14] VITALS: BP 121/80; PULSE 105; RESP 20; O2SAT 94
== END 2023-07-24 06:16 | disposition home or self-care (01) ==
PROVIDERS: Emergency Provider Student in an Organized Health Care Education/Training Program; PCP Emergency Medicine
DX: J44.1 Chronic obstructive pulmonary disease with (acute) exacerbation (principal); R07.89 Other chest pain; Z20.822 Contact with and (suspected) exposure to COVID-19; E78.5 Hyperlipidemia, unspecified; E11.9 Type 2 diabetes mellitus without complications; I10 Essential (primary) hypertension; G47.33 Obstructive sleep apnea (adult) (pediatric); M19.90 Unspecified osteoarthritis, unspecified site; F17.210 Nicotine dependence, cigarettes, uncomplicated; F32.A Depression, unspecified; F41.9 Anxiety disorder, unspecified; Z98.2 Presence of cerebrospinal fluid drainage device; Z86.73 Personal history of transient ischemic attack (TIA), and cerebral infarction without residual deficits; Z90.710 Acquired absence of both cervix and uterus; Z79.84 Long term (current) use of oral hypoglycemic drugs; Z79.899 Other long term (current) drug therapy
CPT/HCPCS: 36415; 71045; 71275; 80053; 82803; 83690; 83735; 83880; 84443; 84484; 85025; 85380; 85610; 85730; 87040; 87637; 93005; 94640; 96361; 96374; 96375; 99284; A9270; J2270; J2919; J7030; Q9967

== ENCOUNTER 2023-10-25 10:53 | Outpatient (CLI) | payer OTHER, SELFPAY ==
[2023-10-25 11:37] LABS: Alanine Aminotransferase 20 U/L (6-35); Albumin Level 4.6 g/dL (3.5-5.1); Alkaline Phosphatase 106 U/L (38-126); Anion Gap 11 mmol/L (4-12); Aspartate Amino Transferase 20 U/L (14-36); Bilirubin,Total 0.4 mg/dL (0.2-1.3); Blood Urea Nitrogen 25 mg/dL (7-17); Calcium 9.8 mg/dL (8.4-10.2); Carbon Dioxide 24 mmol/L (22-30); Chloride 102 mmol/L (98-107); Cholesterol 262 mg/dL (0-200); Estimated Glomerular Filt Rate 46; Glucose 89 mg/dL (65-110); HDL Direct 49 mg/dL; Potassium 4.2 mmol/L (3.4-5.0); Sodium 137 mmol/L (137-145); Triglycerides 279 mg/dL (<150)
[2023-10-25 11:47] LABS: LDL Cholesterol Direct 157 mg/dL
[2023-10-25 11:48] LABS: Basophils Absolute Auto 0.1 K/mm3 (0.0-0.1); Basophils Percent Auto 0.8 % (0.2-1.2); Eosinophils Absolute Auto 0.2 K/mm3 (0-0.3); Eosinophils Percent Auto 2.3 % (0-4.4); Hematocrit 44.9 % (37.0-47.0); Hemoglobin 14.8 g/dL (12.0-15.0); Immature Granulocyte Absolute 0.05 K/mm3 (0.00-0.031); Immature Granulocyte Percent A 0.6 % (0-0.5); Lymphocytes Absolute Auto 1.94 K/mm3 (0.9-3.2); Lymphocytes Percent Auto 22.6 % (18.3-44.2); Mean Corpuscular Volume 106.1 fl (80-100); Mean Platelet Volume 10.6 fl (7.4-10.4); Monocytes Absolute Auto 0.6 K/mm3 (0.1-0.6); Neutrophils Absolute Auto 5.7 K/mm3 (1.3-6.7); Neutrophils Percent Auto 66.7 % (45.5-73.1); Platelet Count Result 254 k/mm3 (150-375); Red Blood Count 4.23 M/mm3 (4.2-5.4); Red Cell Distribution Width 13.8 % (11.5-14.5); White Blood Count 8.6 K/mm3 (4.5-10.0)
[2023-10-25 11:52] LABS: Free T4 Free Thyroxine 0.95 ng/mL (0.78-2.19)
[2023-10-25 12:07] LABS: Thyroid Stimulating Hormone 0.964 uIU/mL (0.465-4.680)
[2023-10-25 12:09] LABS: Hepatitis B Surface Antigen Negative (Negative)
[2023-10-25 12:13] LABS: Iron 66 ug/dL (37-170)
[2023-10-25 12:15] LABS: HAV RESULT Negative (Negative); Hepatitis B Core IgM Result Negative (Negative)
[2023-10-25 12:25] LABS: Hemoglobin A1C 5.3 % (<5.7)
[2023-10-25 12:26] LABS: Hepatitis C Virus Antibody Negative (Negative)
== END 2023-10-25 10:54 | disposition home or self-care (01) ==
LOC: ANHLAB 10:57
PROVIDERS: PCP Emergency Medicine; Visit Provider Emergency Medicine
DX: R94.5 Abnormal results of liver function studies (principal); D64.9 Anemia, unspecified; I10 Essential (primary) hypertension; E78.5 Hyperlipidemia, unspecified; I25.10 Atherosclerotic heart disease of native coronary artery without angina pectoris; J45.909 Unspecified asthma, uncomplicated; M85.80 Other specified disorders of bone density and structure, unspecified site; N28.9 Disorder of kidney and ureter, unspecified
CPT/HCPCS: 36415; 80053; 80061; 80074; 82306; 83036; 83540; 84439; 84443; 85025

== ENCOUNTER 2023-10-26 12:00 | Outpatient (NON) | payer OTHER, SELFPAY ==
[2023-10-26 12:29] LABS: Add Urine Microscopic? YES; Appearance Urine Clear (Clear); Bacteria Urine 4+ /hpf; Bilirubin Urine Negative (Negative); Blood Urine Negative (Negative); Color Urine Yellow (Yellow); Glucose Urine UA 3+ mg/dL (Negative); Ketones Urine Negative (Negative); Leukocyte Esterase Ur Negative LEU/UL (Negative); Nitrate Urine Positive (Negative); Non Pathogenic Casts 0-2; Protein Urine Negative (Negative); RBC Urine 0-2 /hpf (0-2); Specific Grav Ur 1.012 (1.001-1.035); Squamous Epithelial Cell Urine None Seen /hpf (Few); Urobilinogen Urine 0.2 mg/dL (<2.0); pH Urine 5.5 (5.0-9.0)
[2023-10-26 21:58] LABS: Creatinine Urine 60.2 mg/dL
[2023-10-26 22:17] LABS: Microalbumin Urine Random < 6.0 mg/L (0-16.7)
== END 2023-10-26 12:01 | disposition home or self-care (01) ==
LOC: ANHLAB 12:05
PROVIDERS: PCP Emergency Medicine; Visit Provider Emergency Medicine
DX: Z00.00 Encounter for general adult medical examination without abnormal findings (principal); D64.9 Anemia, unspecified; I10 Essential (primary) hypertension; E78.5 Hyperlipidemia, unspecified; N28.9 Disorder of kidney and ureter, unspecified; I25.10 Atherosclerotic heart disease of native coronary artery without angina pectoris; M85.88 Other specified disorders of bone density and structure, other site; J45.909 Unspecified asthma, uncomplicated
CPT/HCPCS: 81001; 82043

== ENCOUNTER 2023-12-22 13:50 | Outpatient (CLI) | payer OTHER, SELFPAY ==
--- NOTE | ~2023-12-22 | XR_ITS ---
XR abdomen/kub 1V 12/22/2023 14:06 INDICATION: Abdomen pain. Constipation. TECHNIQUE: KUB COMPARISON: CT dated 11/05/2021 FINDINGS: Bowel gas pattern is normal. Moderate colonic fecal loading. There is no evidence of free a ir, mass, organomegaly, ascites or obstruction. No abnormal calculi are seen. The bones appear inta ct. There is a ventriculoperitoneal shunt present. IMPRESSION: 1: No acute abdominal abnormality identified. Reviewed, dictated and finalized at location B.
== END 2023-12-22 13:51 | disposition home or self-care (01) ==
LOC: ANHIMG 13:54
PROVIDERS: PCP Emergency Medicine; Visit Provider Nurse Practitioner Family
DX: K59.00 Constipation, unspecified (principal)
CPT/HCPCS: 74018

== ENCOUNTER 2024-03-27 03:29 | Day surgery (SDC) | payer OTHER, SELFPAY ==
[2024-03-18 14:51] VITALS: BMI 31.4
--- OUTSIDE RECORDS SUMMARY | 2024-03-27 03:32 | XMS_ITS | Referral Summary ---
Author Organization [facility] Address [address] [place] [address] Phone Care Team Providers Care Infectious Diseases Physician Name Role Phone Jorge Luis Hill MD Primary Care Provider [phone] Encounters Date Type Department Care Team Description 03/25/2024 12:27 PM AREA CLEANER - 03/25/2024 11:59 PM AREA CLEANER Hospital Encounter [facility] [address] [place] [address] Nicotine dependence, cigarettes, uncomplicated Discharge Disposition: Discharge to home or self care 03/22/[address] [address] Jany Marina RN 02/12/2024 3:00 PM AREA CLEANER Office Visit [facility] at [address] [place] [id number] Jany Hernandez NP Centrilobular emphysema (HCC) (Primary Dx); Chronic respiratory failure with hypoxia, on home O2 therapy (CMS/HCC) (HCC); ELIOT (obstructive sleep apnea); Nicotine dependence, cigarettes, in remission from Last 3 Months Allergies No known active allergies Medications aspirin 81 mg enteric coated tablet Take 1 tablet (81 mg total) by mouth every morning Active cloNIDine (CATAPRES) 0.1 mg tablet Take 1 tablet (0.1 mg total) by mouth every 12 hours 7 Active losartan (COZAAR) 50 mg tablet Take 1 tablet (50 mg total) by mouth every morning 8 Active montelukast (SINGULAIR) 10 mg tablet Take 1 tablet (10 mg total) by mouth nightly 0 Active QUEtiapine (SEROquel) 50 mg tablet Take 1 tablet (50 mg total) by mouth nightly 0 Active rOPINIRole (REQUIP) 0.25 mg tablet Take 1 tablet (0.25 mg total) by mouth nightly 0 Active rosuvastatin (CRESTOR) 20 mg tablet Take 1 tablet (20 mg total) by mouth every morning 9 Active acetaminophen 500 mg capsuleIndication s:Fever,Pain,1st line pain Take 2 capsules (1,000 mg total) by mouth every 6 (six) hours as needed for pain 120 tablet 2 Active cholecalciferol (VITAMIN D-3) 98797 unit tablet Take 1 tablet (50,000 Units total) by mouth once a week 8 Active Dodex 1,000 mcg/mL injection once a week 2 Active dicyclomine (BENTYL) 10 mg capsule Take 1 capsule (10 mg total) by mouth 4 (four) times a day Active furosemide (LASIX) 40 mg tablet 2 Active naloxone (NARCAN) 4 mg/actuation spray,non-aerosol 2 Active diltiaZEM CD (CARDIZEM CD) 360 mg 24 hr capsule Take 1 capsule (360 mg total) by mouth daily 2 Active escitalopram (LEXAPRO) 20 mg tablet Take 1 tablet (20 mg total) by mouth daily 2 Active metoclopramide (REGLAN) 10 mg tabletIndications :nausea preventative Take 1 tablet (10 mg total) by mouth 3 (three) times a day before meals Active amitriptyline (ELAVIL) 50 mg tablet 3 Active omeprazole (PriLOSEC) 40 mg capsule 3 Active rOPINIRole (REQUIP) 0.5 mg tablet TAKE 1 TABLET BY MOUTH EVERY NIGHT AT BEDTIME WITH 1 MG TABLET *EMERGENCY REFILL* 4 Active Farxiga 10 mg tablet Take 1 tablet (10 mg total) by mouth daily 90 tablet 2 4 Active metFORMIN (GLUCOPHAGE) 500 mg tablet Take 1 tablet (500 mg total) by mouth 2 (two) times a day with meals 180 tablet 2 4 Active gabapentin (NEURONTIN) 300 mg capsule Take 1 capsule (300 mg total) by mouth 3 (three) times a day 90 capsule 11 4 08/07/19 25 Active albuterol HFA (PROVENTIL HFA,VENTOLIN HFA,PROAIR HFA) 90 mcg/actuation inhaler Inhale 1 puff every 4 (four) hours as needed for wheezing 1 each 4 Active budesonide-formot [place] (SYMBICORT) 160-4.5 mcg/actuation inhaler Inhale 2 puffs 2 (two) times a day Rinse mouth with water after use. Do not swallow. 1 each 4 Active tiotropium bromide (SPIRIVA RESPIMAT) 2.5 mcg/actuation inhaler Inhale 2 puffs daily 1 each 4 Active loratadine (CLARITIN) 10 mg tablet Take 1 tablet (10 mg total) by mouth daily 30 tablet 11 4 Active sulfamethoxazole- trimethoprim (BACTRIM DS) 800-160 mg per tablet TAKE ONE (1) TABLET BY MOUTH TWICE DAILY 60 tablet 10 4 Active Active Problems Problem Noted Date Diagnosed Date Nicotine dependence, cigarettes, in remission Assessment & Plan (02/13/2024 11:57 AM AREA CLEANER): Quit in November of 2023 She is due for annual CT chest in February of 2023 Chronic respiratory failure with hypoxia, on home O2 therapy ([facility]) 02/13/2024 Assessment & Plan (02/13/2024 11:58 AM AREA CLEANER): Continue supplemental oxygen for saturations 90% I have advised her to get a home pulse oximeter and bring it to her next visit for comparison She has a visit with our paper colorer upcoming and will likely have an echocardiogram. I have asked her to have this faxed over to our office for review as well Diabetic peripheral neuropat hy associated with type 2 diabetes mellitus ([facility]) 08/07/2023 Assessment & Plan (08/07/2023 4:05 PM CDT): Foot care discussed Start gabapentin 300 mg 2 to 3 times a day, as tolerated Encounter for long-term (current) use of antibio tics 12/28/2022 Encounter for screening exam ination for sexually transmitted disease 12/28/2022 Assessment & Plan (12/28/2022 3:06 PM CDT): STI screening form reviewed and no concern for STI testing today. 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 Pt reports she has cut down to 1/2 ppd but hasn't smoked since admission. She does not want a nicotine patch. Osteomyelitis, jaw acute 12/13/2021 Assessment & Plan (07/21/2023 10:59 AM CDT): -Patient has been on chronic suppression with Bactrim for osteonecrosis/osteomyelitis c/b infected retained hardware in her jaw with cultures growing serratia and mixed respiratory micro. -Plan is for indefinite suppression due to retained hardware -We will repeat CBC/CMP today -Refills of bactrim sent to her pharmacy. - Discussed with patient the rational for treatment, culture results, risk of recurrent infection, signs/symptoms of recurrent infection, and to contact ID clinic with any questions or concerns. -Will have her return to clinic in 1 year Assessment & Plan (12/28/2022 8:09 PM CDT): -Patient has been on chronic suppression with Bactrim for osteonecrosis/osteomyelitis c/b infected retained hardware in her jaw with cultures growing serratia and mixed respiratory micro. -Plan is for indefinite suppression due to retained hardware -We will repeat CBC/CMP today - Discussed with patient the rational for treatment, culture results, risk of recurrent infection, signs/symptoms of recurrent infection, and to contact ID clinic with any questions or concerns. -Will have her return to clinic in 6 months Assessment & Plan (01/14/2022 11:03 AM AREA CLEANER): - Pt has completed 4 weeks of IV unasyn and 3+ weeks of IV micafungin for mandibular osteomyelitis. Given this and patients desire to be done with PICC line, will stop IV abx today. - PICC line removed in clinic, pt tolerated without issues. - START augmentin and fluconazole x14 days to complete 6 weeks course. - Discussed with pt that given remaining open area with visibly necrotic bone, it is likely surgery will be needed in order to achieve a successful resolution of her issues. - Pt already scheduled to go back to OR 02/03/22 for removal of necrotic bone, bone graft. ID should be consulted during this admission. - Pt should follow-up with ENT regarding her ongoing pain and pain management strategies. - Discussed with patient the rational for treatment, culture results, risk of recurrent infection, signs/symptoms of recurrent infection, and to contact ID clinic with any questions or concerns. - Augmentin can be associated with GI intolerance, diarrhea, rash, leukopenia, thrombocytopenia, interstitial nephritis, LFT elevation, cholestatic hepatitis. - Fluconazole can be associated with nausea, vomiting, anorexia, transaminase elevations, hepatitis, headache, hypokalemia. As such, CBC and CMP should be monitored regularly while on the medication. Baseline QTc should also be checked as it can prolong the QT interval. Assessment & Plan (12/21/2021 12:02 PM CDT): Recurrent submental infection with osteomyelitis, osteonecrosis. Broad spectrum IV abx, started IV Unasyn (12/13-c); antifungal micafungin (12/19-). Plastics consulted in ED. Culture: mixed aerobic, anaerobic organism Appreciate ENT consult. Exam w/ R mental nerve numbness, visibly necrotic R mandibular bone, Now s/p bedside debridement of necrotic mandible on 12/15.??Studies sent. Mixed upper respiratory tract organisms and lakisha albicans. . Appreciate ID consult. CM consult for DC planning, as anticipate 4-6wks IV abxs / antifungal. ENT recommends Pentocolo protocol - started on prednisone and diflucan -> micafungin as pt had prolonged QTc. Continue Unasyn. Infection needs to be treated prior to consideration of reconstructive surgery. Confirmed with ENT that they will see her in follow manage her steroids beyond 4 weeks (taper if needed, ? Bactrim for PCJ prophylaxis if stays on 20 mg greater than 4 weeks). PICC line placed 12/17. Assessment & Plan (12/13/2021 11:23 AM CDT): Recurrent submental infection with osteomyelitis, osteonecrosis. Broad spectrum IV abx, started IV Unasyn (12/13-), monitor s/s infection & renal function. Plastics & OFMS consulted in ED, no notes yet. Will d/w plastics, anticipate pursuing ENT to evaluate management of osteonecrosis & sinus tract. If no surgical plan, Resume diet. Topline Beading Machine Tender re supplements. Pain control with prn tylenol 1gm QID prn, oxy 5mg Q4hr PRN, Morphine 6mg IV Q4hrs PRN breakthrough. PT/OT evaluation, CM consult for DC planning, as anticipate 4-6wks IV abxs. Diabetes mellitus with hyperglycemia 12/13/2021 Assessment & Plan (08/07/2023 4:05 PM CDT): Chronic, stable Discontinue Januvia Restart Farxiga 10 mg Continue metformin 500 mg twice a day Assessment & Plan (12/19/2021 11:57 AM CDT): Glucose 215 on admit, UA 4+glucosuria. Likely exacerbated by acute infection HbA1c 6.6 On home metformin; ADA diet Monitor serial accuchecks Continue ARB and statin. Assessment & Plan (12/13/2021 11:23 AM CDT): Glucose 215 on admit, UA 4+glucosuria. Likely exacerbated by acute infection Check HbA1c Hold home metformin Managed as inpt with ADA prudent diet and SSI PRN Monitor serial accuchecks Continue ARB and statin. Hypertension associated with diabetes 12/13/2021 Assessment & Plan (12/21/2021 12:02 PM CDT): Continue losartan, catapres and coreg. Hold lasix given recent limited PO intake with mild bump in Cr. Monitor serial pressure trends and titrate PRN Follow up with primary care doctor to adjust these. Assessment & Plan (12/13/2021 11:26 AM CDT): Continue losartan, catapres and coreg. Hold lasix for now given recent limited PO intake with mild bump in Cr. Monitor serial pressure trends and titrate PRN COPD (chronic obstructive pulmonary disease) Assessment & Plan (02/13/2024 11:59 AM AREA CLEANER): Continue Symbicort twice daily Continue Spiriva twice daily Albuterol as needed only, she was aware of indications for use Alpha-1 was normal I believe she would benefit from pulmonary rehab, she will consider She is aware of signs and symptoms that would require earlier evaluation or change to her plan of care Assessment & Plan (12/14/2021 3:10 PM CDT): Chronic, no acute exacerbation. Assessment & Plan (12/13/2021 10:23 AM CDT): Chronic, no acute exacerbation. ELIOT (obstructive sleep apnea) 12/13/2021 Assessment & Plan (02/13/2024 11:57 AM AREA CLEANER): Continue PAP with all sleep She is aware of the risks of uncorrected sleep apnea Assessment & Plan (12/21/2021 12:03 PM CDT): Exacerbated by BMI 42. Alert, oriented. Outpatient PSG Assessment & Plan (12/13/2021 11:24 AM CDT): Exacerbated by BMI 42. Alert, oriented. Morbid obesity with BMI of 40.0-44.9, adult 11/27 Assessment & Plan (12/14/2021 3:10 PM CDT): BMI 42.07, 104.3kg this admit. Topline Beading Machine Tender to see terminal block assembler weight loss management goals with PCP, hx DM, HTN, ELIOT & may benefit from bariatric evaluation. Assessment & Plan (12/13/2021 10:25 AM CDT): BMI 42.07, 104.3kg this admit. Topline Beading Machine Tender to see terminal block assembler weight loss management goals with PCP, hx DM, HTN, ELIOT & may benefit from bariatric evaluation. Pancreatic cyst 01/10/2020 Overview (01/10/2020): Added automatically from request for surgery [id number] Immunizations Name Administration Dates Next Due Influenza, Quadrivalent, Spl it, Preservative Free, Intramuscular 12/28/2022 Pfizer Sars-Cov-2 Bivalent Vaccination (12+ YRS) 03/02/2022 Social History Tobacco Use Types Packs/Day Years Used Date Smoking Tobacco: Every Day Cigarettes 1 48.7 Started: 02/27/1975; Last attempted to quit: 11/2023 Cigars Smokeless Tobacco: Never Tobacco Cessation:Ready to Q uit: Not Asked; Counseling Given: Not Answered Comments:Formerly smoked 1.5 - 2 ppd Alcohol Use Standard Drinks/Week Comments Never 0 (1 standard drink = 0.6 oz pur e alcohol) OASIS D0700: Social Isolation Answer Da te Recorded Frequency of experiencing loneliness or isolatio n Never 08/09/2022 OASIS A1250: Transportation Answer Date Recorded Lack of Transportation (Medical) No 08/09/2022 Lack of Transportation (Non-Medical) No 08/09/2022 Patient Unable or Declines to Respond No 08/09/2022 OASIS B1300: Health Literacy Answer Jerry e Recorded Frequency of needing help to read materials from doctor or pharmacy Never 08/09/2022 Social Connection and Isolat ion Panel [NHANES] Answer Date Recorded In a typical week, how many times do you talk on the phone with family, friends, or neighbors? More than three times a week 12/22/2021 How often do you get togethe r with friends or relatives? More than three times a week 12/22/2021 How often do you attend chur ch or mormonism services? Never 12/22/2021 Do you belong to any clubs o r organizations such as roman catholic groups, unions, fraternal or athletic groups, or school groups? No 12/22/2021 How often do you attend meet ings of the clubs or organizations you belong to? Never 12/22/2021 Are you , , di vorced, , never , or living with a partner? 12/22/2021 AUDIT-C Answer Date Recorded Q1: How often do you have a drink containing alc ohol? Never 2022 Average Number of Drinks Not on file 022 Q3: How often do you have si x or more drinks on one occasion? Never 2022 Overall Financial Resource Strain (CARDIA) Answe r Date Recorded How hard is it for you to pa y for the very basics like food, housing, medical care, and heating? Hard 12/22/2021 PRAPARE - Transportation Answer Date Re corded In the past 12 months, has l ack of transportation kept you from medical appointments or from getting medications? No 11/28 In the past 12 months, has l ack of transportation kept you from meetings, work, or from getting things needed for daily living? Yes 12/22/2021 Housing Stability Vital Sign Answer Jerry e Recorded In the last 12 months, was t here a time when you were not able to pay the mortgage or rent on time? No 12/22/2021 In the last 12 months, how many places have you lived? 2 12/22/2021 In the last 12 months, was t here a time when you did not have a steady place to sleep or slept in a long term (including now)? No 12/22/2021 Personal Safety Answer Date Recorded Getting School Help Needed Denies 02/11 Comments No Sex and Gender Information Value Date Recorded Sex Assigned at Not on file Legal Sex Female 1:34 AM AREA CLEANER Gender Identity Not on file Sexual Orientation Not on file Last Filed Vital Signs Vital Sign Reading Time Taken Comments Blood Pressure 96/63 02/12/2024 2:42 PM AREA CLEANER Pulse 86 02/12/2024 2:42 PM AREA CLEANER Temperature 36.1 ??C (96.9 ??F) 02/12/2024 2:42 PM CS T Respiratory Rate 18 02/12/2024 2:42 PM AREA CLEANER Oxygen Saturation 92% 02/12/2024 2:42 PM AREA CLEANER Inhaled Oxygen Concentration - - Weight 85.3 kg (188 lb) 03/25/2024 12:44 PM AREA CLEANER Height 162.6 cm (5' 4 ) 03/25/2024 12:44 PM AREA CLEANER Body Mass Index 32.27 03/25/2024 12:44 PM AREA CLEANER Plan of Treatment Not on file Medical Devices Implanted Type Area Numerical Control Tool Programmer Device Identifier Shelf Expiration Date Model / Serial / Lot Shunt Implanted:Qty: 2 Shunt Brain Synovis [employer] O'Brien Microvascular 3.5mm Ring Pin Protective Cover Jaw Assembly Latex Free [id number] - [id number] Implanted:Qty: 1 on 2022 by Ricci Shelton MD at [facility] Mandible Synovis Chapatiz Norrislewis [id number] 04/12/2026 [id number] / / [id number] [place] Craniomaxillofaci al 2mm Primary Reconstruction Customize Mandible Bebeto Plate Bone [id number] - [id number] Implanted:Qty: 1 on 2022 by Ricci Shelton MD at [facility] Mandible [place] Craniomaxillofacial [id number] / / [place] Craniomaxillofaci al Leibinger Artemas 2 2.3mm 6mm Lock Cross Pin Maxillofacial [id number] - [id number] Implanted:Qty: 1 on 2022 by Ricci Shelton MD at [facility] Mandible Álvaro Craniomaxillofacial [id number] / / [place] Craniomaxillofaci al Leibinger Artemas 2 2.3mm 8mm Lock Cross Pin Maxillofacial [id number] - [id number] Implanted:Qty: 2 on 2022 by Ricci Shelton MD at [facility] Mandible Álvaro Craniomaxillofacial [id number] / / [place] Craniomaxillofaci al Leibinger Artemas 2 2.3mm 12mm Lock Cross Pin Maxillofacial [id number] - [id number] Implanted:Qty: 3 on 2022 by Ricci Shelton MD at [facility] Mandible [place] Craniomaxillofacial [id number] / / [place] Craniomaxillofaci al Leibinger Artemas 2 2mm 6mm Self Tap Cross Pin Maxillofacial 50 - [id number] Implanted:Qty: 4 on 2022 by Ricci Shelton MD at [facility] Mandible Álvaro Craniomaxillofacial 50 / / Álvaro Craniomaxillofaci al Edebinger Artemas 2 2mm 6mm Lock Cross Pin Maxillofacial Screw 50 - [id number] Implanted:Qty: 1 on 2022 by Ricci Shelton MD at [facility] Mandible [place] Craniomaxillofacial 50 / / Explanted Type Area Numerical Control Tool Programmer Device Identifier Shelf Expiration Date Model / Serial / Lot Álvaro Craniomaxillofaci al Leibinger Artemas 2 2mm 8mm Self Tap Cross Pin Maxillofacial 50 - [id number] Explanted:Qty: 4 on 2022 at [facility] Mandible Álvaro Craniomaxillofacial 50 / / [place] Craniomaxillofaci al Leibinger Artemas 2 2.3mm 8mm Self Tap Cross Pin Maxillofacial [id number] - [id number] Explanted:Qty: 1 on 2022 at [facility] Mandible [place] Craniomaxillofacial [id number] / / [employer] Probe Doppler 17.4cm Standard Cuff Implantable 20mhz Latex Free Sterile Microvascular Anastomoses Carmen [id number] - [id number] Implanted:Qty: 1 on 2022 by Ricci Shelton MD at [facility] Explanted:Qty: 1 on 02/14/2022 by Marie Parr PA Right: Neck [employer] [id number] 10/27/2024 [id number] / / [id number] Procedures Procedure Name Priority Date/Time Associated Diagnosis Comments CT LUNG CANCER SCREENING Schedule Routine, Read Routine (OP Routine) 03/25/2024 12:46 PM AREA CLEANER Nicotine dependence, cigarettes, uncomplicated POCT HEMOGLOBIN A1C Routine 08/07/2023 3:17 PM CDT Type 2 diabetes mellitus with hyperglycemia, without long-term current use of insulin (CMS/HCC) (HCC) EGFR Routine 08/03/2023 1:59 PM CDT Osteoporosis, unspecified osteoporosis type, unspecified pathological fracture presence LIPID PANEL STAT 02/15/2022 2:00 PM AREA CLEANER HEPATITIS PANEL, ACUTE Routine 12/15/2021 11:19 PM CDT from Last 3 Months or Most Recently Relevant to Health Maintenance Results * CT Lung Cancer Screening (03/25/2024 12:46 PM AREA CLEANER) Anatomical Region Laterality Modality Chest N/A Computed Tomogra phy 03/26/2024 9:54 AM AREA CLEANER Narrative 03/26/2024 10:03 AM AREA CLEANER EXAM DESCRIPTION: ?? CT LUNG CANCER SCREENING REASON FOR STUDY: Screening CT of the chest in a ?? former ??smoker with a ??49 ?? pack year smoking history. Additional history: None. TECHNIQUE: Low dose CT scan of the chest was performed without intravenous contrast using helical scanning technique. The exam extends from the lung apices through the lung bases. Automatic exposure control was used as a dose optimization technique. NOTE: This study was performed for the specific purposes of lung cancer screening and is not an alternative to diagnostic chest CT. RADIATION DOSE: CT dose index volume (CTDIvol) = ?? 2.44 ??mGy COMPARISON: ?? 03/21/2023 FINDINGS: SMOKING RELATED LUNG DISEASE: ?? There are mild emphysematous changes of lungs with scattered mild subsegmental atelectasis and scarring. ??There are scattered subtle mild ground-glass centrilobular airspace opacities in bilateral lungs, which is probably due to smoking related respiratory bronchiolitis. ??There is mild biapical pleural thickening and scarring. ??There is no definite evidence of a pneumothorax. ??There is scattered mild bronchial wall thickening, which is likely related to mild chronic bronchitis/bronchiolitis. ??There is no definite evidence of focal consolidation or pleural effusion. LUNG NODULES: ?? There is interval development of a 0.4 cm pulmonary nodule in the central left upper lobe (axial image 82). CORONARY ARTERY CALCIFICATION: ??Present. OTHER: ?? The heart size is stable. ??There is no definite evidence of pericardial effusion. ??There are atherosclerotic changes of the thoracic aorta and coronary vessels. ??There is partial visualization of ventriculoperitoneal shunt. There is no definite unenhanced CT evidence of mediastinal or hilar lymphadenopathy. ??There are scattered subcentimeter mediastinal lymph nodes noted with the largest measuring 0.6 cm in the right paratracheal region (axial image 89). ??There is redemonstration of the prominent subcentimeter axillary lymph nodes noted bilaterally with largest measuring 0.9 cm on the right (axial image 51) and 0.9 cm on the left, which are overall similar to the prior study. There is a small hiatal hernia. ??The visualized portions of the bilateral adrenal glands are grossly stable and unremarkable. There is mild osteopenia. ??There is mild dextroscoliotic curvature of the spine with degenerative changes. IMPRESSION: Interval development of a 0.4 cm pulmonary nodule in the central left upper lobe, which is probably benign. Short-term follow-up low-dose chest CT in 6 months is recommended to assess for stability as clinically indicated. Mild emphysematous changes of lungs with scattered mild subsegmental atelectasis and scarring. Scattered mild bronchial wall thickening, which is likely related to mild chronic bronchitis/bronchiolitis. Scattered subtle mild ground-glass centrilobular airspace opacities in bilateral lungs, which is probably due to smoking related respiratory bronchiolitis. Lung-RADS category ??3: Probably benign. Recommendation: ??Low dose CT of chest in 6 months. THIS IS AN ELECTRONICALLY VERIFIED FINAL REPORT 03/26/2024 10:03 AM - Electronically signed by ??Almita Miller D.O. PS: PS D: ??03/26/2024 10:03 AM T: ??03/26/2024 10:03 AM Report ID: [id number] Reading Location: ??[id number] Procedure Note Almita Miller, DO - 03/26/2024 EXAM DESCRIPTION: CT LUNG CANCER SCREENING REASON FOR STUDY: Screening CT of the chest in a former smoker with a49 pack year smoking history. Additional history: None. TECHNIQUE: Low dose CT scan of the chest was performed without intravenous contrast using helical scanning technique. The exam extends from the lung apices through the lung bases. Automatic exposure control was used as adose optimization technique. NOTE: This study was performed for the specific purposes of lung cancer screening and is not an alternative to diagnostic chest CT. RADIATION DOSE: CT dose index volume (CTDIvol) = 2.44 mGy COMPARISON: 03/21/2023 FINDINGS: SMOKING RELATED LUNG DISEASE: There are mild emphysematous changes oflungs with scattered mild subsegmental atelectasis and scarring. There are scattered subtle mild ground-glass centrilobular airspace opacities in bilateral lungs, which is probably due to smoking related respiratory bronchiolitis. There is mild biapical pleural thickening and scarring.There is no definite evidence of a pneumothorax. There is scattered mildbronchial wall thickening, which is likely related to mild chronic bronchitis/bronchiolitis. There is no definite evidence of focal consolidation or pleural effusion. LUNG NODULES: There is interval development of a 0.4 cm pulmonary nodulein the central left upper lobe (axial image 82). CORONARY ARTERY CALCIFICATION: Present. OTHER: The heart size is stable. There is no definite evidence of pericardial effusion. There are atherosclerotic changes of the thoracicaorta and coronary vessels. There is partial visualization ofventriculoperitoneal shunt. There is no definite unenhanced CT evidence of mediastinal or hilar lymphadenopathy. There are scattered subcentimeter mediastinal lymphnodes noted with the largest measuring 0.6 cm in the right paratracheal region (axial image 89). There is redemonstration of the prominent subcentimeter axillary lymph nodes noted bilaterally with largest measuring 0.9 cm onthe right (axial image 51) and 0.9 cm on the left, which are overall similarto the prior study. There is a small hiatal hernia. The visualized portions of the bilateral adrenal glands are grossly stable and unremarkable. There is mild osteopenia. There is mild dextroscoliotic curvature of the spine with degenerative changes. IMPRESSION: Interval development of a 0.4 cm pulmonary nodule in the central leftupper lobe, which is probably benign. Short-term follow-up low-dose chest CT in6 months is recommended to assess for stability as clinically indicated. Mild emphysematous changes of lungs with scattered mild subsegmental atelectasis and scarring. Scattered mild bronchial wall thickening, which is likely related to mild chronic bronchitis/bronchiolitis. Scattered subtle mild ground-glass centrilobular airspace opacities in bilateral lungs, which is probably due to smoking related respiratory bronchiolitis. Lung-RADS category 3: Probably benign. Recommendation: Low dose CT of chest in 6 months. THIS IS AN ELECTRONICALLY VERIFIED FINAL REPORT 03/26/2024 10:03 AM - Electronically signed by Almita Miller D.O. PS: PS Report ID: [id number] Reading Location: [place] [address] Ethan Leung MD IMG CT PROCEDURES Final Result * (ABNORMAL) POCT hemoglobin A1c (08/07/2023 3:17 PM CDT) Hemoglobin A1C, POC 5.9 % Capillary blood 08/07/2023 3 :17 PM CDT Briana Santana MD POINT OF CARE TEST ORDERABLES Fi nal Result * eGFR (08/03/2023 1:59 PM CDT) eGFR 73 >=60 mL/min/1. 73 m2 Comment: Interpretive Data Reference Interval Normal ?>/= 90 mL/min/1.73m2 Mildly decreased* ? 60 - 89 mL/min/1.73m2 Mildly to moderately decreased ?45 - 59 mL/min/1.73m2 Moderately to severely decreased ??30 - 44 mL/min/1.73m2 Severely decreased ?15 - 29 mL/min/1.73m2 Kidney Failure ?< 15 ??mL/min/1.73m2 *Relative to young adult level Estimated glomerular filtration rate is determined by the 2020 CKD-EPI equation recommended by the National Kidney Foundation (A Unifying Approach to GFR Estimation: Recommendations of the NKF-ASK Task Force on Reassessing the Inclusion of Race in Diagnosing Kidney Disease, JASN 202). The CKD-EPI equation should not be used for patients with unstable renal function and has not been validated in children and those over 70. Current interpretive data was last reviewed 2020. Blood 08/03/2023 1:59 PM CDT 08/03/2023 2:33 PM CDT us Carlos Manuel Raya MD LAB BLOOD ORDERABLES Final Resu lt [facility] [facility] [place] [address] * (ABNORMAL) Lipid panel (02/15/2022 2:00 PM AREA CLEANER) Cholesterol 161 30 - 199 mg/dL [facility] Comment: Interpretive Data Ages < or = 19 years ??Acceptable: ? <170 mg/dL ??Borderline high: ??170-199 mg/dL ??High: ? >or= 200 mg/dL Ages > or = 20 years ??Desirable: ?<200 mg/dL ??Borderline high: ??200-239 mg/dL ??High: ? >or= 240 mg/dL Literature References: 1. Expert Panel on Integrated Guidelines for Cardiovascular Health and Risk Reduction in Children and Adolescents. Pediatrics 2011;128:S213 2. NCEP Expert Panel. Circulation 2004;110:227 Current Interpretive Data was last revised on 2017. Triglycerides 253(H) <=149 mg/dL [facility] Comment: Interpretive Data Ages < or = 9 years ??Acceptable: ? <75 mg/dL ??Borderline high: ??75-99 mg/dL ??High: ? >or= 100 mg/dL Ages 10 to 20 years ??Acceptable: ? <90 mg/dL ??Borderline high: ??90-129 mg/dL ??High: ? >or= 130 mg/dL Ages > or = 20 years ??Desirable: ?<150 mg/dL ??Borderline high: ??150-199 mg/dL ??High: ? 200-499 mg/dL ?Very high: ?? >or= 499 mg/dL Literature References: 1. Expert Panel on Integrated Guidelines for Cardiovascular Health and Risk Reduction in Children and Adolescents. Pediatrics 2011;128:S213 2. NCEP Expert Panel. Circulation 2004;110:227 Current Interpretive Data was last revised on 2017. HDL 42 >=40 mg/dL [facility] Comment: Interpretive Data Ages < or = 19 years ??Acceptable: ? >45 mg/dL ??Borderline low: ?? 40-45 mg/dL ??Low: ? <40 mg/dL Ages > or = 20 years ??Desirable: ?>or= 60 mg/dL ??Low: ? <40 mg/dL Literature References: 1. Expert Panel on Integrated Guidelines for Cardiovascular Health and Risk Reduction in Children and Adolescents. Pediatrics 2011;128:S213 2. NCEP Expert Panel. Circulation 2004;110:227 Current Interpretive Data was last revised on 2017. LDL, calculated 68 <=129 mg/dL [facility] Comment: Interpretive Data Ages < or = 19 years ??Acceptable: ? <110 mg/dL ??Borderline high: ??110-129 mg/dL ??High: ?>or= 130 mg/dL Ages > or = 20 years ??Optimal: ? <100 mg/dL ??Near optimal: ?100-129 mg/dL ??Borderline high: ?? 130-159 mg/dL ??High: ?>160 mg/dL Literature References: 1. Expert Panel on Integrated Guidelines for Cardiovascular Health and Risk Reduction in Children and Adolescents. Pediatrics 2011;128:S213 2. NCEP Expert Panel. Circulation 2004;110:227 Current Interpretive Data was last revised on 2017. Non-HDL Cholesterol 119 mg/dL [facility] Comment: Interpretive Data Ages < or = 19 years ??Acceptable: ?<120 mg/dL ??Borderline high: ??120-144 mg/dL ??High: ?>145 mg/dL Ages > or = 20 years ??When triglycerides are >200 mg/dL, Non-HDL cholesterol is a secondary target of ? therapy with treatment goals that are 30 mg/dL greater than the LDL cholesterol target. ? Literature References: 1. Expert Panel on Integrated Guidelines for Cardiovascular Health and Risk Reduction in Children and Adolescents. Pediatrics 2011;128:S213 2. NCEP Expert Panel. Circulation 2004;110:227 Current Interpretive Data was last revised on 2017. Chol/HDL ratio 4 [facility] Blood 02/15/2022 2:00 PM AREA CLEANER 02/15/2022 5:52 PM AREA CLEANER Neri Loco MD LAB BLOOD ORDERABLES Fi nal Result [facility] [place] [address] * Hepatitis panel, acute (12/15/2021 11:19 PM CDT) Hep A IgM Nonreactive Nonreactive Comment: Interpretive Data: If Hep A IgM Ab is reported as Equivocal, a new sample should be drawn in two weeks for testing. Current interpretive data was last revised on 19. Hep B core IgM Nonreactive Nonreactive [facility] Comment: Interpretive Data If HepB Core IgM Ab is reported as Equivocal, a new sample should be drawn in two weeks for testing. Current interpretive data was last revised on 19. Hep C Ab Nonreactive Nonreactive [facility] Comment:Antibodies to HCV no t detected. Does NOT exclude the possibility of recent exposure to HCV. HepBsAg Nonreactive Nonreactive [facility] Blood 12/15/2021 11:1 9 PM CDT 12/16/2021 12:30 AM CDT Orly Fine MD LAB MICROBIOLOGY - GENERAL O RDERABLES Edited Result - Final [facility] [place] [address] from Last 3 Months or Most Recently Relevant to Health Maintenance Additional Health Concerns Infection Onset Date Last Indicated MDR gram neg/ESBL 2022 2022 Insurance Advance Directives For more information, please contact: [phone] * Full Code (Latest Code Status on File) Date Activated Date Inactivated Comments 04/26/2022 9:48 PM 05/03/2022 6:39 PM * Full Code Date Activated Date Inactivated Comments 2022 9:27 PM 02/14/2022 9:56 PM * Full Code Date Activated Date Inactivated Comments 12/13/2021 5:40 PM 12/21/2021 6:14 PM * Full Code Date Activated Date Inactivated Comments 01/22/2020 1:18 PM 01/22/2020 10:15 PM Care Teams Infectious Diseases Physician Relationship Specialty Start Date End Date Jorge Luis Hill MD PCP - General 04/30/18
--- OUTSIDE RECORDS SUMMARY | 2024-03-27 03:33 | XMS_ITS | Encounter Summary ---
Author Organization [facility] Address [address] [place] [address] Phone Care Team Providers Care Card Assembler Name Role Phone Jorge Luis Hill MD Primary Care Provider [phone] Encounter Details Date Type Department Care Team (Late st Contact Info) Description 05/07/2022 Documentation [facility] ([facility]) - [facility] [address] [facility] [address] [facility] [address] [place] [address] [place] [id number] Amadeo Bazzi MD [address] [place] [address] Social History Tobacco Use Types Packs/Day Years Used Date Smoking Tobacco: Every Day Cigarettes 0.5 49.1 Started: 1975 Smokeless Tobacco: Never Comments:Formerly smoked 1.5 - 2 ppd Alcohol Use Standard Drinks/Week Comments Never 0 (1 standard drink = 0.6 oz pur e alcohol) Social Connection and Isolat ion Panel [NHANES] Answer Date Recorded In a typical week, how many times do you talk on the phone with family, friends, or neighbors? More than three times a week 12/22/2021 How often do you get togethe r with friends or relatives? More than three times a week 12/22/2021 How often do you attend chur or gnosticism services? Never 12/22/2021 Do you belong to any clubs o r organizations such as holiness groups, unions, fraternal or athletic groups, or [...] place to sleep or slept in a nursing home (including now)? No 12/22/2021 Comments No Sex and Gender Information Value Date Recorded Sex Assigned at Not on file Legal Sex Female 1:34 AM [employer] Gender Identity Not on file Sexual Orientation Not on file documented as of this encounter Plan of Treatment Not on file documented as of this encounter Visit Diagnoses Not on filedocumented in this encounter Additional Health Concerns Infection Onset Date Last Indicated Resolved Time MDR gram neg/ESBL 2022 2022 documented as of this encounter Care Teams Card Assembler Relationship Specialty Start Date End Date Jorge Luis Hill MD PCP - General 04/30/18 documented as of this encounter
--- OUTSIDE RECORDS SUMMARY | 2024-03-27 03:33 | XMS_ITS | CONTINUITY OF CARE DOCUMENT ---
Author Name meli garrison Address Unknown Organization [facility] Address [address] [place] [address] Phone [phone] Care Team Providers Care Crimper Assembler Name Role Phone Bulmaro Riggs MD Unavailable MASSIMO QUINTANA MD Unavailable [phone] MASSIMO QUINTANA MD Unavailable [phone] PROBLEMS Condition Status Date Provider Notes TOBACCO ABUSE active Cathy Lorenzo ASTHMA active Cathy Lorenzo CAD--normal stress nuc 02/2021 active Omar Vargas Shortness of breath active Bulmaro Riggs MD Chronic back pain active Bulmaro Riggs MD HTN--echo ef 61%, 10/2020 active Omar harkins Diabetes mellitus active Bulmaro Riggs MD SLEEP APNEA ON CPAP active Bulmaro Rgigs MD DIZZINESS S/P COSMETOLOGIST SHUNT--stre ss nuc normal ef 57%, 10/2017 active Bulmaro Riggs MD HTN-09/05 ECHO EF 55 completed - Bulmaro Mendieta HTN-05/05 JESIKA DUP NEG completed - Bulmaro Riggs MD CAD-05/05 CAROTID NEG completed - Omar Vargas CAD-01/02 NUC EF 40 NORM completed - Bulmaro mak MD HTN-09/04 ECHO EF 45-50 05/05 ECHO EF 35 ,EF 7/10 60% completed - Bulmaro Riggs MD CHEST PAIN-06/04 CATH DIFFUSE DISEASE LAD DIS active ? Bulmaro Riggs MD ENCOUNTERS Date Type Provider Location Encounter Diagnosis - In-person encounter Office Visit Bulmaro Riggs MD [place] - In-person encounter Office Visit Bulmaro Riggs MD [facility] - In-person encounter Office Visit Bulmaro Riggs MD [facility] - In-person encounter Office Visit Bulmaro Riggs MD [place] CAD-05/05 CAROTID NEGHTN--echo ef 61%, AD--normal stress nuc 02/2021 - In-person encounter Office Visit Bulmaro Riggs MD [place] [facility] Shortness of breath - In-person encounter Office Visit Bulmaro Riggs MD [facility] HTN-09/04 ECHO EF 45-50 05/05 ECHO EF 35 ,EF 7/10 60%CAD-01/02 NUC EF 40 NORMHTN-05/05 JESIKA DUP NEGHTN-09/05 ECHO EF 55DIZZINESS S/P COSMETOLOGIST SHUNT--stress nuc normal ef 57%, 10/2017HTN--echo ef 61%, hronic back pain - In-person encounter Office Visit Bulmaro Riggs MD [place] - In-person encounter Office Visit Bulmaro Riggs MD [facility] - In-person encounter Office Visit Bulmaro Riggs MD [facility] - In-person encounter Office Visit Bulmaro Riggs MD [place] Diabetes mellitus - In-person encounter Office Visit Bulmaro Riggs MD [facility] - In-person encounter Office Visit Bulmaro Riggs MD [facility] - In-person encounter Office Visit Bulmaro Riggs MD [facility] - In-person encounter Office Visit Bulmaro Riggs MD [facility] - In-person encounter Office Visit Bulmaro Riggs MD [facility] - In-person encounter Office Visit Bulmaro Riggs MD [facility] - In-person encounter Office Visit Bulmaro Riggs MD [place] DIZZINESS S/P COSMETOLOGIST SHUNT--stress nuc normal ef 57%, 10/2017SLEEP APNEA ON CPAP - In-person encounter Office Visit Bulmaro Riggs MD [facility] - In-person encounter Office Visit Bulmaro Riggs MD [facility] - In-person encounter Office Visit Bulmaro Riggs MD [facility] - In-person encounter Office Visit Bulmaro Riggs MD [facility] - In-person encounter Office Visit Bulmaro Riggs MD [facility] - In-person encounter Office Visit Bulmaro Riggs MD [facility] - In-person encounter Office Visit Bulmaro Riggs MD [facility] CHEST PAIN-06/04 CATH DIFFUSE DISEASE LAD DISHTN-09/04 ECHO EF 45-50 05/05 ECHO EF 35 ,EF 09/05 60% - In-person encounter Office Visit Bulmaro Riggs MD [place] VITAL SIGNS Date Observation Value Provider Body Mass Index (Ratio) 32.94 kg/m2 Jon Riggs MD blood pressure, diastolic 69 mm[Hg] Li nkLogic blood pressure, systolic 100 mm[Hg] Mary kLogic blood pressure, diastolic 69 mm[Hg] Ka yla Ruple blood pressure, systolic 100 mm[Hg] Rachel la Ruple oxygen saturation, oximetry 96 % Donna Ruple pulse rate 77 /min Donna Ruple weight E&M 186 [lb_av] Donna Ruple height E&M 63 [in_i] Donna Ruple Body Mass Index (Ratio) 41.09 kg/m2 Jon Riggs MD blood pressure, cuff size large Mi deven [place] blood pressure, diastolic 60 mm[Hg] Mi deven [place] blood pressure, systolic 100 mm[Hg] Darren calderon [place] oxygen saturation, oximetry 98 % Adilene [place] respiratory rate E&M 16 /min Natalie marin [place] pulse rate 94 /min Adilene Lang d weight E&M 232 [lb_av] Adilene John Paulan d height E&M 63 [in_i] Adilene Hollan d Body Mass Index (Ratio) 42.33 kg/m2 Jon Riggs MD blood pressure, diastolic 69 mm[Hg] Sa ra Gray blood pressure, systolic 104 mm[Hg] Bereket a Gray oxygen saturation, oximetry 97 % Gena Gray pulse rate 110 /min Gena Gray respiratory rate E&M 19 /min Gena Si ms weight E&M 239 [lb_av] Gena Gray blood pressure, cuff size regular Sa ra Gray height E&M 63 [in_i] Gena Gray Body Mass Index (Ratio) 43.22 kg/m2 Jon Riggs MD oxygen saturation, oximetry 96 % Chastity Ketty blood pressure, diastolic 91 mm[Hg] Ch astity Ketty blood pressure, systolic 130 mm[Hg] Joie stity Ketty respiratory rate E&M 16 /min Chastit y Ketty pulse rate 92 /min Chastity Ketty weight E&M 244 [lb_av] Chastity Ketty height E&M 63 [in_i] Chastity Ketty blood pressure, cuff size large Ke rri Gruenenfelder blood pressure, diastolic 72 mm[Hg] Ke rri Gruenenfelder blood pressure, systolic 122 mm[Hg] Ker ri Orestesnfelder oxygen saturation, oximetry 96 % Lorraine Martina respiratory rate E&M 18 /min Lorraine Félix gin pulse rate 108 /min Lorraine Radha lder height E&M 63 [in_i] Lorraine Radha er Body Mass Index (Ratio) 36.84 kg/m2 Jon Riggs MD blood pressure, diastolic 80 mm[Hg] Rh ongail Vila blood pressure, systolic 118 mm[Hg] Rho ndvanna Vila oxygen saturation, oximetry 97 % Mary Vila pulse rate 83 /min Mary Vila blood pressure, cuff size regular Rh shyann Vila weight E&M 208 [lb_av] Mary Vila respiratory rate E&M 16 /min Mary Vila height E&M 63 [in_i] Mary Vila Body Mass Index (Ratio) 31.17 kg/m2 Trac juliana Tarango blood pressure, diastolic 68 mm[Hg] Ch astity Ketty blood pressure, systolic 90 mm[Hg] Joie stity Ketty oxygen saturation, oximetry 97 % Chastity Ketty pulse rate 73 /min Chastity Ketty respiratory rate E&M 16 /min Chastit y Ketty weight E&M 176 [lb_av] Anaity Ketty height E&M 63 [in_i] Joiestity Ektty Body Mass Index (Ratio) 36.49 kg/m2 Jon Riggs MD blood pressure, diastolic 84 mm[Hg] Da j carlos Columba blood pressure, systolic 122 mm[Hg] Dac ia Columba oxygen saturation, oximetry 94 % Anushka Columba respiratory rate E&M 20 /min Anushka V oss pulse rate 98 /min Anushka Columba weight E&M 206 [lb_av] Anushka Columba height E&M 63 [in_i] Anushka Columba Body Mass Index (Ratio) 35.96 kg/m2 Jon Riggs MD blood pressure, cuff size regular Cy emre Kwon blood pressure, diastolic 80 mm[Hg] Cy ntlee anna Kwon blood pressure, systolic 120 mm[Hg] Omaira lora Kwon oxygen saturation, oximetry 96 % Luz Maria Kwon respiratory rate E&M 18 /min Luz Maria Kwon pulse rate 96 /min Luz Maria Gabebel l weight E&M 203 [lb_av] Luz Maria Campbel l height E&M 63 [in_i] Luz Maria Campbel l Body Mass Index (Ratio) 30.82 kg/m2 Jon Riggs MD blood pressure, cuff size regular Ramya Bailey blood pressure, diastolic 90 mm[Hg] Ramya Bailey blood pressure, systolic 140 mm[Hg] Karmen Bailey oxygen saturation, oximetry 98 % Nitza Bailey respiratory rate E&M 16 /min Nitza Bailey pulse rate 86 /min Nitza Bailey weight E&M 174 [lb_av] Nitza Bailey height E&M 63 [in_i] Nitza Bailey Body Mass Index (Ratio) 31.53 kg/m2 Woodrow Osborne blood pressure, diastolic 83 mm[Hg] An amari Osborne blood pressure, systolic 113 mm[Hg] Rebekah Osborne pulse rate 85 /min Aneatredilia Osborne oxygen saturation, oximetry 96 % Aneatris Dylon respiratory rate E&M 17 /min Aneatri s Dylon weight E&M 178 [lb_av] Aneatris Brown blood pressure, diastolic 76 mm[Hg] Phyllis seph [place] blood pressure, systolic 105 mm[Hg] Ronan eph [place] pulse rate 93 /min Neri [place] oxygen saturation, oximetry 97 % Neri [place] respiratory rate E&M 20 /min Neri [place] weight E&M 193.8 [lb_av] Neri [place] blood pressure, rodríguez tolic, second observation 89 mm[Hg] Anneliese Swift blood pressure, syst olic, second observation 137 mm[Hg] Anneliese Swift blood pressure, diastolic 89 mm[Hg] Ca rol Jeniffer blood pressure, systolic 137 mm[Hg] Car gutierrez Swift pulse rate 107 /min Anneliese Swift oxygen saturation, oximetry 96 % Anneliese Swift respiratory rate E&M 20 /min Anneliese kapoor weight E&M 214 [lb_av] Anneliese Swift blood pressure, diastolic 74 mm[Hg] Igor Gómez RN blood pressure, systolic 111 mm[Hg] Xiang Gómez RN pulse rate 108 /min Xiang Gómez RN oxygen saturation, oximetry 96 % Xiang Gómez RN respiratory rate E&M 16 /min Xiang hammond RN weight E&M 227 [lb_av] Xiang Gómez RN blood pressure, diastolic 83 mm[Hg] Igor Gómez RN blood pressure, systolic 114 mm[Hg] Xiang Gómez RN pulse rate 88 /min Xiang Gómez RN oxygen saturation, oximetry 97 % Xiang Gómez RN respiratory rate E&M 16 /min Xiang hammond RN weight E&M 203 [lb_av] Xiang Gómez RN blood pressure, diastolic 77 mm[Hg] Igor Gómez RN blood pressure, systolic 109 mm[Hg] Xiang Gómez RN pulse rate 98 /min Xiang Gómez RN oxygen saturation, oximetry 96 % Xiang Gómez RN respiratory rate E&M 18 /min Xiang hammond RN weight E&M 198 [lb_av] Xiang Gómez RN blood pressure, diastolic 90 mm[Hg] Phyllis seph [place] blood pressure, systolic 120 mm[Hg] Ronan eph [place] pulse rate 89 /min Neri [place] oxygen saturation, oximetry 97 % Neri [place] respiratory rate E&M 16 /min Neri [place] weight E&M 199 [lb_av] Neri [place] blood pressure, diastolic 88 mm[Hg] Phyllis seph [place] blood pressure, systolic 124 mm[Hg] Ronan eph [place] pulse rate 94 /min Neri [place] oxygen saturation, oximetry 96 % Neri [place] respiratory rate E&M 16 /min Neri [place] weight E&M 194 [lb_av] Neri Man[place]op blood pressure, diastolic 86 mm[Hg] Igor Gómez RN blood pressure, systolic 121 mm[Hg] Xiang Gómez RN pulse rate 54 /min Xiang Gómez RN oxygen saturation, oximetry 100 % Xiang Gómez RN respiratory rate E&M 16 /min Xiang hammond RN weight E&M 193 [lb_av] Xiang Gómez RN blood pressure, diastolic 98 mm[Hg] Phyllis seph [place] blood pressure, systolic 170 mm[Hg] Ronan ignacio [place] pulse rate 108 /min Neri [place] oxygen saturation, oximetry 98 % Neri [place] respiratory rate E&M 20 /min Neri [place] weight E&M 196 [lb_av] Neri [place] blood pressure, diastolic 96 mm[Hg] Igor lucas Gómez RN blood pressure, systolic 148 mm[Hg] Xiang Salinasbenjamin GARCÍA pulse rate 100 /min Xiang Salinasbenjamin GARCÍA oxygen saturation, oximetry 100 % Xiang Salinasbenjamin GARCÍA respiratory rate E&M 20 /min Xiang hammond RN weight E&M 191 [lb_av] Xiang Salinasbenjamin GARCÍA blood pressure, diastolic, left arm 79 mm [Hg] Bulmaro Riggs MD blood pressure, systolic, left arm 114 mm [Hg] Bulmaro Riggs MD blood pressure, diastolic, right arm 81 m m[Hg] Bulmaro Riggs MD blood pressure, systolic, right arm 112 m m[Hg] Bulmaro Riggs MD pulse rate 112 /min Bulmaro Riggs MD oxygen saturation, oximetry 98 % Bulmaro Riggs MD respiratory rate E&M 18 /min Bulmaro Riggs MD weight E&M 192 [lb_av] Bulmaro Riggs MD height E&M 63 [in_i] Bulmaro Riggs MD ALLERGIES No Known Drug Allergies RESULTS Date Observation Value Provider Reference Range Interpretation Location triglyceride, target level 150 mg/dL Bulmaro Riggs MD HDL cholesterol, serum, target level 40 mg/dL Bulmaro Riggs MD LDL target level 70 mg/dL Bulmaro Riggs MD cholesterol, target level 200 mg/dL Bulmaro Riggs MD basophils as percent of blood leukocytes 0.2 % [facility] Normal eosinophils as percent of blood leukocytes 2.5 % Link[facility] Normal monocyte count, blood 6.2 % [facility] Normal lymphocyte count, blood 29.4 % [facility] Normal neutrophils as percent of blood leukocytes 61.7 % [facility] Normal basophils, absolute, manual 18 cells/mcL [facility] 0-200 Normal eosinophils, absolute, manual 223 cells/mcL [facility] 15-500 Normal monocytes, absolute, manual 552 cells/mcL [facility] 200-950 Normal lymphocytes, absolute 2617 CELLS/UL LinkLogic 850-3900 Normal Absolute Neutrophil count 5491 cells/mcL [facility] 1054-7481 Normal platelet count 258 THOUSAND/UL Link[facility]ic 140-400 Normal red blood cell distribution width 13.4 % [facility] 11.0-15.0 Normal mean corpuscular hemoglobin concentration, RBC 33.0 G/DL [facility] 32.0-36.0 Normal mean corpuscular hemoglobin, RBC 32.8 pg [facility] 27.0-33.0 Normal mean corpuscular volume, RBC 99.5 fL [facility] 80.0-100.0 Normal hematocrit, blood 46.7 % [facility] 35.0-45.0 High hemoglobin electrophoresis, blood 15.4 [facility] 11.7-15.5 Normal erythrocyte (RBC) count 4.69 MILLION/UL [facility] 3.80-5.10 Normal leukocyte (white blood cells) count, blood 8.9 THOUSAND/UL [facility] 3.8-10.8 Normal alanine aminotransferase (SGPT), serum 12 1/L [facility] 6-40 Normal aspartate aminotransferase (SGOT), serum 17 1/L [facility] 10-30 Normal alkaline phosphatase, serum 85 1/L [facility] 33-115 Normal bilirubin, serum, total 0.7 mg/dL [facility] 0.2-1.2 Normal albumin/globulin ratio, serum 2.0 (calc) [facility] 1.0-2.1 Normal globulins, serum, total 2.2 G/DL (CALC) [facility]ic 2.2-3.9 Normal albumin, serum 4.3 g/dL [facility] 3.6-5.1 Normal protein, total, serum 6.5 g/dL [facility] 6.2-8.3 Normal calcium, serum 9.2 mg/dL [facility] 8.6-10.2 Normal carbon dioxide, venous blood 23 mmol/L [facility] 21-33 Normal chloride, serum 104 mmol/L [facility] 98-110 Normal potassium, serum 3.8 mmol/L [facility] 3.5-5.3 Normal sodium, serum 141 mmol/L [facility] 135-146 Normal urea nitrogen/creatinine ratio, serum NOT APPLICABLE (calc) [facility] 6-22 Estimated Glomerular Filtration Rate (calc) >60 mL/min/1.73m2 LinkLogic > OR = 60 Normal creatinine, serum 0.73 mg/dL [facility] 0.50-1.20 Normal urea nitrogen, blood 9 mg/dL [facility] 7-25 Normal blood glucose, random 94 mg/dL [facility] 65-99 Normal thyroid stimulating hormone, serum 0.81 u[IU]/mL [facility] Normal free thyroxine index 3.4 [facility] 1.4-3.8 Normal thyroxine, serum, total 15.6 ug/dL [facility] 4.5-12.5 High triiodothyronine resin uptake 22 % [facility] 22-35 Normal HISTORY OF MEDICATION USE Medication Status Instructions Dates Provider Indications Com ments sulfamethoxazole- trimethoprim 800-160 mg tablet active TAKE ONE (1) TABLET BY MOUTH TWICE DAILY Bulmaro Riggs MD pantoprazole 40 mg tablet,delayed release (DR/EC) active Bulmaro Riggs MD losartan 50 mg tablet active TAKE 1 TABLET BY MOUTH DAILY Donna Ruple losartan 50 mg tablet completed Take 1 tablet by mouth once a day - Donna Eva furosemide 40 mg tablet active TAKE 1 TABLET BY MOUTH DAILY [facility] diltiazem HCl (Cardizem CD) 360 mg capsule,extended release 24hr active TAKE 1 CAPSULE BY MOUTH EVERY DAY [facility] furosemide 40 mg tablet completed Take 1 tablet by mouth once a day due for follow up - Omar Vargas diltiazem HCl (Cardizem CD) 360 mg capsule,extended release 24hr completed Take 1 capsule by mouth once a day - [facility] furosemide 40 mg tablet completed TAKE 1 TABLET BY MOUTH DAILY - Lorraine Mack carvedilol 12.5 mg tablet completed TAKE 1 TABLET BY MOUTH TWICE DAILY - Omar Vargas metformin 1,000 mg tablet active Take 1 tablet by mouth twice daily Bulmaro Riggs MD Januvia 50 mg tablet active Omar Vargas methocarbamol 500 mg tablet active Omar Vargas diltiazem HCl 360 mg capsule,extended release 24hr completed Take 1 capsule by mouth once a day - Omar Vargas rosuvastatin 20 mg tablet active TAKE 1 TABLET BY MOUTH DAILY Omar Vargas Spiriva with HandiHaler 18 mcg capsule, w/inhalation device active Omar Vargas ropinirole 0.25 mg tablet completed - Omar Vargas ergocalciferol (vitamin D2) 1,250 mcg (50,000 unit) capsule active Omar Vargas omeprazole 40 mg capsule,delayed release(DR/EC) completed - Bulmaro Riggs MD ciprofloxacin HCl 500 mg tablet active Omar Vargas tizanidine 4 mg tablet completed - Omar Vargas [facility]izine [facility] 100-62.5-25 MCG/INH INHALATION AEROSOL POWDER BREATH ACTIVATED completed one puff once daily - David Segura TRAZODONE HCL 50 MG ORAL TABLET completed one tab once daily - Bulmaro Riggs MD SIMVASTATIN 40 MG ORAL TABLET completed one tab once daily - Christopher Rhodes sertraline 100 mg tablet completed 200 mg once a day - Omar Vargas metoclopramide HCl 10 mg tablet active 1 tablet three times a day Siena Hdez dicyclomine 10 mg capsule completed 1 capsule twice a day - Bulmaro Riggs MD CATAPRES 0.1 MG ORAL TABLET active 1 tablet once a day Omar Vargas alendronate 70 mg tablet completed 1 tablet once a week - Bulmaro Riggs MD ProAir HFA 90 mcg/actuation HFA aerosol inhaler active as needed Siena Hdez VITAMIN D3 48359 UNIT ORAL TABLET active Take once a week Anushka Waterman ROPINIROLE HCL TABLET active Take every night Luz Maria Kwon losartan 50 mg tablet completed Take 1 tablet once a day - Lorraine Mack CLONIDINE HCL 0.1 MG ORAL TABLET completed ONE TAB. TWICE DAILY - Luz Maria Kwon carvedilol 12.5 mg tablet completed Take 1 tablet by mouth twice a day - Omar Vargas LOSARTAN POTASSIUM 100 MG ORAL TABLET completed 1 tab daily - Bulmaro Riggs MD MECLIZINE HCL 25 MG ORAL TABLET completed 1 tab 3x daily - Bulmaro Riggs MD rosuvastatin 20 mg tablet completed Take 1 tablet by mouth once a day - Omar Vargas ZOLOFT 100 MG ORAL TABLET completed 1 tablet by mouth twice daily - Johan Osborne TRAZAMINE 50 MG ORAL completed 1 tablet by mouth at beditme - Nitza Bailey BENICAR 40 MG ORAL TABLET completed 1 tablet by mouth daily - Johan Osborne Ventolin HFA 90 mcg/actuation HFA aerosol inhaler active 4 puff by mouth once a day Omar Vargas ASPIRIN 81 MG ORAL TABLET active 1 tablet by mouth once a day Omar Vargas MIRAPEX 0.5 MG ORAL TABLET completed 1 tablet by mouth at bedtime - Bulmaro Riggs MD PERCOCET 10-325 MG ORAL TABLET completed 1 tablet by mouth twice daily - Nitza Bailey metformin 500 mg tablet completed 1 tablet by mouth once a day - Omar Vargas HYDROCODONE-ACETA MINOPHEN 7.5-325 MG ORAL TABLET completed - Neri Manacojovon LISINOPRIL 20 MG ORAL TABLET completed ONE TAB. DAILY - Neri Manacojovon IMITREX 100 MG ORAL TABLET completed 1 tablet by mouth as needed - Bulmaro Riggs MD METHOCARBAMOL 750 MG ORAL TABLET completed 3 times daily - Bulmaro Riggs MD Lasix 40 mg tablet completed TAKE 1 TABLET BY MOUTH DAILY - Omar Vargas CARVEDILOL 12.5 MG ORAL TABLET completed twice daily - Bulmaro Riggs MD ALBUTEROL AERS completed 2 puffs as needed upto 4 times a day - Bulmaro Riggs MD ALPRAZOLAM 1 MG ORAL TABLET completed 1 tablet by mouth daily - Bulmaro Riggs MD CARVEDILOL 12.5 MG ORAL TABLET completed one tab twice a day - Bulmaro Riggs MD DETROL 1 MG ORAL TABLET completed ONE TAB. DAILY - Anneliese Swift DUONEB SOLUTION completed four times a day - Bulmaro Riggs MD COMBIVENT AEROSOL completed 2 puffs by mouth four times a day - Bulmaro Riggs MD MEDROL TABLET THERAPY PACK completed take as directed - Neri Manacop LASIX 20 MG ORAL TABLET completed ONCE DAILY - Neri Manacop WELLBUTRIN 100 MG ORAL TABLET completed ONE TAB. DAILY - Neri Manacop NITROGLYCERIN PATCH 24 HOUR completed 0.4mg as needed. - Neri Manacop potassium chloride 10 mEq tablet extended release completed twice a day - Xiang Gómez RN ISOSORBIDE MONONITRATE ER 30 MG ORAL TABLET EXTENDED RELEASE 24 HOUR completed one tab. daily - Xiang Gómez RN MECLIZINE HCL TABS completed 25mg three times daily - Neri Manacop OSCAL 500/200 D-3 TABLET completed - Neri Manacop RANEXA 500 MG ORAL TABLET EXTENDED RELEASE 12 HOUR completed ONE TAB. TWICE DAILY - Xiang Gómez RN CYCLOBENZAPRINE HCL 10 MG ORAL TABLET completed 1 tablet by mouth once daily - Bulmaro Riggs MD Protonix 40 mg tablet,delayed release (DR/EC) completed 1 tablet once a day - Xiang Gómez RN may use generic SINGULAIR 10 MG ORAL TABLET completed - Xiang Gómez RN SIMVASTATIN 40 MG ORAL TABLET completed ONE TAB. DAILY - Anneliese Swift CARISOPRODOL 350 MG ORAL TABLET completed - Xiang Gómez RN PREMARIN 0.625 MG ORAL TABLET completed - Neri Lewis FUROSEMIDE 20 MG ORAL TABLET completed daily - Xiang Gómez RN ALPRAZOLAM 0.25 MG ORAL TABLET completed TID - Xiang Gómez RN Singulair 10 mg tablet active once a day Cathy ALBARRAN DISKUS 250-50 MCG/DOSE INHALATION AEROSOL POWDER BREATH ACTIVATED completed twice daily - Anushka Waterman NAPROXEN SODIUM TB24 completed 500 mg daily - Xiang Gómez RN HYDROCODONE-IBUPR OFEN TABS completed 500/50 qid - Xiang Gómez RN ALBUTEROL 90 MCG/ACT AERS completed - Neri Lewis PROVENTIL HFA AEROSOL SOLUTION completed QID - Neri Manacojovon VIJAY 5-40 MG ORAL TABLET completed ONE TAB. DAILY - Xiang Gómez RN SOCIAL HISTORY Date Observation Value Provider social history reviewed E&M revi ewed - no changes required Omar Vargas social history E&M Lives with luis miguel johnson/friends M arital Status: E thnicity: Smoking History: P ricky currently smokes every day. P ricky has been counseled to quit. Omar Vargas physical exercise, frequency, days per week no Adilene Lancaster caffeine use, averag e drinks per day yes Adilene Lancaster smoking/tobacco cess ation, patient education and counseling yes Adilene Lancaster number of years as a smoker 40 a Adilene Lancaster smoking history, tot al pack/day 1.2 Adilene Lancaster cigarette use yes Adilene Richard nd smoking status Current every day smoker M kaye Lancaster social history reviewed E&M revi ewed - no changes required Bulmaro Riggs MD social history reviewed E&M revi ewed - no changes required Omar Vargas social history reviewed E&M revi ewed - no changes required Bulmaro Riggs MD physical exercise, frequency, days per week no Siena Hdez caffeine use, averag e drinks per day yes Siena Hdez smoking/tobacco cess ation, patient education and counseling yes Siena Hdez number of years as a smoker 40 a Siena Hdez smoking history, tot al pack/day 1.2 Siena Hdez cigarette use yes Siena Hdez smoking status Current every day smoker Kandi Hdez social history E&M Lives with fa alex/friends M arital Status: E thnicity: Smoking History: P atient currently smokes every day. P atient has been counseled to quit. Omarcarlos Vargas social history reviewed E&M revi ewed - no changes required Omar Alicia drug use none Paul Mishra alcohol use, average drinks per day social Paul Chau [place] alcohol use yes Paul Chau [place] social history E&M Lives with fa alex/friends M arital Status: E thnicity: Smoking History: P atient currently smokes every day. P atient has been counseled to quit. Paul Chau [place] social history reviewed E&M revi ewed - no changes required Paul Chau [place] physical exercise, frequency, days per week no Lorrainejoann Mack caffeine use, averag e drinks per day yes Lorrainejoann Mack smoking/tobacco cess ation, patient education and counseling yes Lorrainejoann Mack number of years as a smoker 40 a Lorraine Mack smoking history, tot al pack/day 1.2 Lorrainejoann Mack cigarette use yes Lorraine Criss alexander smoking status Current every day smoker K eric Mack physical exercise, frequency, days per week no David Lambros caffeine use, averag e drinks per day yes David Lambros smoking/tobacco cess ation, patient education and counseling yes David Lambros number of years as a smoker 40 a David Lambros smoking history, tot al pack/day 1.2 David Segura cigarette use yes David Robles os smoking status Current every day smoker N rito Segura social history E&M Lives with fa alex/friends M arital Status: E thnicity: Smoking History: P atient currently smokes every day. P atient has been counseled to quit. David Segura social history reviewed E&M revi ewed - no changes required David Segura social history E&M Lives with fa alex/friends M arital Status: E thnicity: Smoking History: P atient currently smokes every day. P atient has been counseled to quit. Bulmaro Riggs MD physical exercise, frequency, days per week no Bulmaro Riggs MD caffeine use, averag e drinks per day yes Bulmaro Riggs MD smoking/tobacco cess ation, patient education and counseling yes Bulmaro Riggs MD number of years as a smoker 40 a Bulmaro Riggs MD smoking history, tot al pack/day 1.2 Bulmaro Riggs MD cigarette use yes Bulmaro Mendieta smoking status Current every day smoker T josue Riggs MD social history reviewed E&M revi ewed - no changes required Bulmaro Riggs MD social history reviewed E&M revi ewed - no changes required Bulmaro Riggs MD social history E&M Lives with fa alex/friends M arital Status: E thnicity: Smoking History: P atient currently smokes every day. P atient has been counseled to quit. Bulmaro Riggs MD physical exercise, frequency, days per week no Siena Hdez caffeine use, averag e drinks per day yes Siena Hdez smoking/tobacco cess ation, patient education and counseling yes Siena Hdez number of years as a smoker 40 a Siena Hdez smoking history, tot al pack/day 1.2 Siena Hdez cigarette use yes Siena Hdez smoking status Current every day smoker C wayne Hdez social history reviewed E&M revi ewed - no changes required Bulmaro Riggs MD alcohol use yes Anushka Columba number of years as a smoker 40 a Anushka Columba smoking history, tot al pack/day 1.2 Anushka Columba cigarette use yes Anushka Columba physical exercise, frequency, days per week no Anushka Columba alcohol use, average drinks per day social Anushka Columba caffeine use, averag e drinks per day yes Anushka Columba smoking/tobacco cess ation, patient education and counseling yes Anushka Columba drug use none Anushka Columba smoking status Current every day smoker D zurdo Orange number of grandchildren Bulmaro Riggs MD T josue Riggs MD social history E&M Lives with luis miguel johnson/friends M arital Status: E thnicity: Smoking History: P ricky currently smokes every day. P ricky has been counseled to quit. Bulmaro Riggs MD social history reviewed E&M revi ewed - no changes required Bulmaro Riggs MD physical exercise, frequency, days per week no Luz Maria Kwon alcohol use, average drinks per day none Luz Maria Kwon caffeine use, averag e drinks per day yes Luz Maria Kwon smoking/tobacco cess ation, patient education and counseling yes Luz Maria Kwon drug use none Luz Maria ortiz smoking status Current every day smoker C ronel Kwon social history reviewed E&M revi ewed - no changes required Bulmaro Riggs MD physical exercise, frequency, days per week no Nitza Bailey alcohol use, average drinks per day none Nitza Bailey caffeine use, averag e drinks per day yes Nitzavanna Bailey smoking/tobacco cess ation, patient education and counseling yes Nitzavanna Bailey drug use none Nitza Bailey smoking status Current every day smoker Rosalie Bailey social history reviewed E&M revi ewed - no changes required Bulmaro Riggs MD smoking status Current every day smoker Vanna Osborne smoking/tobacco cess ation, patient education and counseling yes Bulmaro Riggs MD social history reviewed E&M reviewed Xiang Gómez RN social history reviewed E&M reviewed Bulmaro Riggs MD smoking/tobacco cess ation, patient education and counseling yes Xiang Gómez RN social history reviewed E&M reviewed Xiang Gómez RN smoking/tobacco cess ation, patient education and counseling yes Xiang Gómez RN social history reviewed E&M reviewed Xiang Gómez RN smoking/tobacco cess ation, patient education and counseling yes Xiang Gómez RN social history reviewed E&M reviewed Xiang Gómez RN smoking/tobacco cess ation, patient education and counseling yes Bulmaro Riggs MD social history reviewed E&M reviewed Bulmaro Riggs MD social history reviewed E&M reviewed Bulmaro Riggs MD social history reviewed E&M reviewed Xiang Gómez RN smoking/tobacco cess ation, patient education and counseling yes Bulmaro Riggs MD social history E&M L imtiaz with family/friends M arital Status: E thnicity: Xiang Gómez RN social history reviewed E&M reviewed Xiang Gómez RN smoking/tobacco cess ation, patient education and counseling yes Bulmaro Riggs MD social history E&M Marital Statu s: E thnicity: Bulmaro Riggs MD drug use none Bulmaro Riggs MD social history reviewed E&M reviewed Bulmaro Riggs MD quit smoking, stage contemplative Bulmaro Riggs MD physical exercise, frequency, days per week no [employer]Log caffeine use, averag e drinks per day yes LinkLog alcohol use, average drinks per day none LinkLog smoking status Smoker LinkLog FUNCTIONAL STATUS Date Observation Value Provider HRA, CV Assess/Plan, Angina (inactive) Management Plan continue current therapy Omar Ahmedzai HRA, CV Assess/Plan, Angina (inactive) Management Plan continue current therapy Omar Ahmedzai HRA, CV Assess/Plan, Angina (inactive) Management Plan continue current therapy Omar Ahmedzai HRA, CV Assess/Plan, Angina (inactive) Management Plan continue current therapy Omar Ahmedzai HRA, CV Assess/Plan, Angina (inactive) Management Plan continue current therapy Paul Mishra HRA, CV Assess/Plan, Angina (inactive) Management Plan continue current therapy David Segura HRA, CV Assess/Plan, Angina (inactive) Management Plan continue current therapy Bulmaro Riggs MD HRA, CV Assess/Plan, Angina (inactive) Management Plan continue current therapy Bulmaro Riggs MD HRA, CV Assess/Plan, Angina (inactive) Management Plan continue current therapy Bulmaro Riggs MD HRA, CV Assess/Plan, Angina (inactive) Management Plan continue current therapy Bulmaro Riggs MD MENTAL STATUS Date Observation Value Provider assessment of judgme nt and insight E&M Alert and oriented to time, place and person. Mood and affect are normal. Xiang Gómez RN assessment of judgme nt and insight E&M Alert and oriented to time, place and person. Mood and affect are normal. Bulmaro Riggs MD assessment of judgme nt and insight E&M Alert and oriented to time, place and person. Mood and affect are normal. Xiang Gómez RN assessment of judgme nt and insight E&M Alert and oriented to time, place and person. Mood and affect are normal. Xiang Gómez RN assessment of judgme nt and insight E&M Alert and oriented to time, place and person. Mood and affect are normal. Xiang Gómez RN assessment of judgme nt and insight E&M Alert and oriented to time, place and person. Mood and affect are normal. Bulmaro Riggs MD assessment of judgme nt and insight E&M Alert and oriented to time, place and person. Mood and affect are normal. Bulmaro Riggs MD assessment of judgme nt and insight E&M Alert and oriented to time, place and person. Mood and affect are normal. Xiang Gómez RN assessment of judgme nt and insight E&M Alert and oriented to time, place and person. Mood and affect are normal. Xiang Gómez RN assessment of judgme nt and insight E&M Alert and oriented to time, place and person. Mood and affect are normal. Bulmaro Riggs MD assessment of judgme nt and insight E&M Alert and oriented to time, place and person. Mood and affect are normal. Bulmaro Riggs MD FAMILY HISTORY Family Member Condition First Degree Blood Relative No Known Fam rosemary History INSURANCE PROVIDERS Payer name Policy type / Coverage type [facility] party ID ALISA MEDICAID (2) Medicaid [id number] ADVANCE DIRECTIVES Name Date DISCUSSED - NO DECISION MADE TREATMENT PLAN Date Name Performer [id number],S, Omar Ahmedza i [id number],B, Omar Ahmedza i [id number],S, Omar Ahmedza i [id number],S, Omar Ahmedza i [id number],S, Omar Ahmedza i [id number],S, Omar Ahmedza i [id number],S, Omar Ahmedza i [id number],S, Omar Ahmedza i [id number],S, Omar Ahmedza i [id number],S, Omar Ahmedza i [id number],S, Omar Ahmedza i [id number],S, Omar Ahmedza i [id number],S, Omar Ahmedza i [id number],B, Omar Ahmedza i [id number],S, Omar Ahmedza i [id number],S, Omar Ahmedza i [id number],S, Omar Ahmedza i [id number],S, Omar Ahmedza i [id number],S, Omar Ahmedza i [id number],S, Omar Ahmedza i [id number],S, Omar Ahmedza i [id number],S, Omar Ahmedza i [id number],S, Omar Ahmedza i [id number],W, Omar Ahmedza i [id number],S, Omar Ahmedza i [id number],S, Omar Ahmedza i [id number],S, Omar Ahmedza i [id number],S, Omar Ahmedza i [id number],W, Omar Ahmedza i [id number],S, Omar Ahmedza i [id number],W, Omar Ahmedza i Telehealth Bobby Nacht Telehealth Bobby [facility]acht Telehealth Bobby Nacht Telehealth Bobby Nacht Telehealth Omar Ahmedzai Telehealth Omar Ahmedzai Telehealth Omar Ahmedzai Telehealth Omar Ahmedzai Telehealth Omar Ahmedzai Telehealth Omar Ahmedzai Telehealth Omar Ahmedzai Telehealth Omar Ahmedzai Telehealth Omar Ahmedzai Telehealth Omar Ahmedzai Telehealth Omar Ahmedzai Telehealth Omar Ahmedzai Telehealth Omar Ahmedzai Telehealth Oamr Ahmedzai Telehealth Omar Ahmedzai Cardiology Omar Ahmedzai Cardiology Omar Ahmedzai Cardiology Omar Ahmedzai Cardiology Omar Ahmedzai Cardiology Omar Ahmedzai Cardiology Omar medzai Cardiology Omar medzai Cardiology Omar medzai Cardiology Omar medzai Cardiology Omar medzai Cardiology Omar medzai Cardiology Omar medzai Cardiology Omar medzai Cardiology Bulmaro Riggs MD Cardiology Omar Ahmedzai Cardiology Bulmaro Riggs MD Cardiology Follow up Paul C Beat ty Cardiology Follow up Paul C Beat ty Cardiology Follow up Paul C Beat ty Cardiology Follow up : B P today: 122/72 P rior BP: 118/80 (11/19/2019) Prior 10 Yr Risk Heart Disease: N/A (11/13/2017) Labs Reviewed: Kandi reat: 0.73 (04/24/2008) Paul Mishra Cardiology David [facility]ura Cardiology [facility] Cardiology: B P today: 118/80 P rior BP: 90/68 (11/20/2018) Prior 10 Yr Risk Heart Disease: N/A (11/13/2017) Labs Reviewed: Kandi reat: 0.73 (04/24/2008) Her updated medication list for this problem includes: Aspirin 81 Mg Oral Tablet (Aspirin) ..... 1 tablet by mouth daily Carvedilol 12.5 Mg Oral Tablet (Carvedilol) ..... 1 tab twice a day Losartan Potassium 50 Mg Oral Tablet (Losartan potassium) ..... Take one tablet daily Lasix 40 Mg Oral Tablet (Furosemide) ..... Po daily Catapres 0.1 Mg Oral Tablet (Clonidine hcl) ..... One tab twice daily David Segura Cardiology David Segura TeleHealth, 6 MONTH F/U Bulmaro sandoval MD TeleHealth, 6 MONTH F/U Bulmaro sandoval MD TeleHealth, 6 MONTH F/U Bulmaro sandoval MD TeleHealth, 6 MONTH F/U Bulmaro sandoval MD TeleHealth, 6 MONTH F/U Bulmaro sandoval MD TeleHealth, 6 MONTH F/U Bulmaro sandoval MD Cardiology Bulmaro Riggs MD Cardiology Bulmaro Riggs MD Cardiology Bulmaro Riggs MD Cardiology Bulmaro Riggs MD Cardiology Bulmaro Riggs MD Cardiology FOLLOW UP Bulmaro hawkins MD Cardiology FOLLOW UP:Denae Riggs MD Cardiology FOLLOW UP :Denae bishop, sob. O n her recent testing, her echo showed normal LV function at 60%. Bulmaro Riggs MD Cardiology FOLLOW UP:Urged to qu it. Bulmaro Riggs MD Cardiology FOLLOW UP :BP today: 122/84 P rior BP: 120/80 (11/13/2017) H er updated medication list for this problem includes: Aspirin 81 Mg Oral Tablet (Aspirin) ..... 1 tablet by mouth daily Carvedilol 25 Mg Oral Tablet (Carvedilol) ..... One tab twice daily Losartan Potassium 100 Mg Oral Tablet (Losartan potassium) ..... Take once daily Lasix 40 Mg Oral Tablet (Furosemide) ..... Po daily Bulmaro Riggs MD Cardiology follow up Bulmaro hawkins MD Cardiology follow up Bulmaro hawkins MD Cardiology follow up Bulmaro hawkins MD Cardiology follow up Bulmaro hawkins MD Cardiology follow up Bulmaro hawkins MD Cardiology Follow up Bulmaro hawkins MD Cardiology Follow up Bulmaro hawkins MD Cardiology Follow up Bulmaro hawkins MD Cardiology Follow up Bulmaro hawkins MD follow up: H er updated medication list for this problem includes: Carvedilol 12.5 Mg Tabs (Carvedilol) ..... Twice daily Aspirin 81 Mg Tabs (Aspirin) ..... 1 tablet by mouth daily Crestor 20 Mg Tabs (Rosuvastatin calcium) ..... 1 tablet by mouth daily Bulmaro Riggs MD follow up: H er updated medication list for this problem includes: Alprazolam 1 Mg Tabs (Alprazolam) ..... 1 tablet by mouth daily Carvedilol 12.5 Mg Tabs (Carvedilol) ..... Twice daily Aspirin 81 Mg Tabs (Aspirin) ..... 1 tablet by mouth daily Bulmaro Riggs MD follow up: T he following medications were removed from the medication list: Benicar 40 Mg Tabs (Olmesartan medoxomil) ..... 1 tablet by mouth daily Her updated medication list for this problem includes: Losartan Potassium 100 Mg Tabs (Losartan potassium) ..... 1 tab daily Carvedilol 12.5 Mg Tabs (Carvedilol) ..... Twice daily Lasix 40 Mg Tabs (Furosemide) ..... Po daily Aspirin 81 Mg Tabs (Aspirin) ..... 1 tablet by mouth daily BP today: 113/83 P rior BP: 105/76 (09/27/2011) Labs Reviewed: C reat: 0.73 (04/24/2008) Bulmaro Riggs MD Overdue follow-up Bulmaro Mendieta Overdue follow-up Bulmaro Mendieta Overdue follow-up Bulmaro Mendieta Overdue follow-up Bulmaro Mendieta f/u: T he following medications were removed from the medication list: Simvastatin 40 Mg Tabs (Simvastatin) ..... One tab. daily Her updated medication list for this problem includes: Carvedilol 12.5 Mg Tabs (Carvedilol) ..... Twice daily Lisinopril 20 Mg Tabs (Lisinopril) ..... One tab. daily Bulmaro Riggs MD f/u: H er updated medication list for this problem includes: Alprazolam 0.25 Mg Tabs (Alprazolam) ..... One tab. daily Carvedilol 12.5 Mg Tabs (Carvedilol) ..... Twice daily Lisinopril 20 Mg Tabs (Lisinopril) ..... One tab. daily Orders: E KG (CPT-91838) Bulmaro Riggs MD f/u: H er updated medication list for this problem includes: Alprazolam 0.25 Mg Tabs (Alprazolam) ..... One tab. daily Carvedilol 12.5 Mg Tabs (Carvedilol) ..... Twice daily Lisinopril 20 Mg Tabs (Lisinopril) ..... One tab. daily Bulmaro Rgigs MD : H er updated medication list for this problem includes: Simvastatin 40 Mg Tabs (Simvastatin) ..... One tab. daily Carvedilol 12.5 Mg Tabs (Carvedilol) ..... Twice daily BP today: 111/74 Prior BP: 114/83 (05/04/2009) N uclear Stress Findings: EF - 40%. N ormal resting EKG. N ormal perfusion scan. (01/18/2006) C ardiac Cath: EF - 50%. M ild hypokinesis of the anterolateral and apical segments. M ild diffuse distal disease in the LAD. (06/26/2007) C arotid Doppler/Duplex: Minimal smooth intimal thickening bilaterally. Antegrade flow into both vertebrals. SLHV (05/07/2008) H CT: 46.7 (04/24/2008) Platelets: 258 THOUSAND/UL (04/24/2008) R BC: 4.69 MILLION/UL (04/24/2008) BUN: 9 (04/24/2008) Creat: 0.73 (04/24/2008) Glucose: 94 (04/24/2008) N a+: 141 (04/24/2008) K+: 3.8 (04/24/2008) Cl: 104 (04/24/2008) TSH: 0.81 (04/24/2008) T4 (total): 15.6 (04/24/2008) Bulmaro Riggs MD : H er updated medication list for this problem includes: Simvastatin 40 Mg Tabs (Simvastatin) ..... One tab. daily Carvedilol 12.5 Mg Tabs (Carvedilol) ..... Twice daily BP today: 111/74 Prior BP: 114/83 (05/04/2009) N uclear Stress Findings: EF - 40%. N ormal resting EKG. N ormal perfusion scan. (01/18/2006) C ardiac Cath: EF - 50%. M ild hypokinesis of the anterolateral and apical segments. M ild diffuse distal disease in the LAD. (06/26/2007) C arotid Doppler/Duplex: Minimal smooth intimal thickening bilaterally. Antegrade flow into both vertebrals. SLHV (05/07/2008) H CT: 46.7 (04/24/2008) Platelets: 258 THOUSAND/UL (04/24/2008) R BC: 4.69 MILLION/UL (04/24/2008) BUN: 9 (04/24/2008) Creat: 0.73 (04/24/2008) Glucose: 94 (04/24/2008) N a+: 141 (04/24/2008) K+: 3.8 (04/24/2008) Cl: 104 (04/24/2008) TSH: 0.81 (04/24/2008) T4 (total): 15.6 (04/24/2008) Bulmaro Riggs MD : T he following medications were removed from the medication list: Vijay 5-40 Mg Tabs (Amlodipine-olmesartan) ..... One tab. daily Her updated medication list for this problem includes: Carvedilol 12.5 Mg Tabs (Carvedilol) ..... Twice daily Lasix 20 Mg Tabs (Furosemide) ..... Daily BP today: 111/74 P rior BP: 114/83 (05/04/2009) Labs Reviewed: C reat: 0.73 (04/24/2008) Bulmaro Riggs MD : H er updated medication list for this problem includes: Alprazolam 0.25 Mg Tabs (Alprazolam) ..... One tab. daily Carvedilol 12.5 Mg Tabs (Carvedilol) ..... Twice daily Bulmaro Riggs MD : T he following medications were removed from the medication list: Vijay 5-40 Mg Tabs (Amlodipine-olmesartan) ..... One tab. daily Her updated medication list for this problem includes: Carvedilol 12.5 Mg Tabs (Carvedilol) ..... Twice daily Lasix 20 Mg Tabs (Furosemide) ..... Daily BP today: 111/74 P rior BP: 114/83 (05/04/2009) Labs Reviewed: C reat: 0.73 (04/24/2008) Bulmaro Riggs MD 2 month follow-up Bulamro Mendieta 2 month follow-up: H er updated medication list for this problem includes: Isosorbide Mononitrate Cr 30 Mg Tb24 (Isosorbide mononitrate) ..... One tab. daily Simvastatin 20 Mg Tabs (Simvastatin) ..... One tab. daily Carvedilol 12.5 Mg Tabs (Carvedilol) ..... One tab twice a day Bulmaro Riggs MD 2 month follow-up: H er updated medication list for this problem includes: Isosorbide Mononitrate Cr 30 Mg Tb24 (Isosorbide mononitrate) ..... One tab. daily Simvastatin 20 Mg Tabs (Simvastatin) ..... One tab. daily Carvedilol 12.5 Mg Tabs (Carvedilol) ..... One tab twice a day Bulmaro Riggs MD 2 month follow-up: H er updated medication list for this problem includes: Isosorbide Mononitrate Cr 30 Mg Tb24 (Isosorbide mononitrate) ..... One tab. daily Carvedilol 12.5 Mg Tabs (Carvedilol) ..... One tab twice a day Alprazolam 0.25 Mg Tabs (Alprazolam) ..... One tab. daily Bulmaro Riggs MD 2 month follow-up: H er updated medication list for this problem includes: Vijay 5-40 Mg Tabs (Amlodipine-olmesartan) ..... One tab. daily Carvedilol 12.5 Mg Tabs (Carvedilol) ..... One tab twice a day Bulmaro Riggs MD 1 week follow-up: H er updated medication list for this problem includes: Vijay 5-20 Mg Tabs (Amlodipine-olmesartan) ..... One tab. daily Coreg Cr 10 Mg Cp24 (Carvedilol phosphate) ..... One tab. daily Bulmaro Riggs MD 1 week follow-up: H er updated medication list for this problem includes: Isosorbide Mononitrate Cr 30 Mg Tb24 (Isosorbide mononitrate) ..... One tab. daily Coreg Cr 10 Mg Cp24 (Carvedilol phosphate) ..... One tab. daily [facility]gs [facility]: T oneal following medications were removed from the medication list: Nitroglycerin Pt24 (Nitroglycerin pt24) ..... 0.4mg as needed. Her updated medication list for this problem includes: Accupril 20 Mg Tabs (Quinapril hcl) ..... One tab. daily Isosorbide Mononitrate Cr 30 Mg Tb24 (Isosorbide mononitrate) ..... One tab. daily BP today: 170/98 Prior BP: 148/96 (01/08/2008) N uclear Stress Findings: EF - 40%. N ormal resting EKG. N ormal perfusion scan. (01/18/2006) C ardiac Cath: EF - 50%. M ild hypokinesis of the anterolateral and apical segments. M ild diffuse distal disease in the LAD. (06/26/2007) E chocardiogram: EF - 50%. N ormal LV systolic function. T race mitral regurgitation. T race tricuspid regurgitation. (01/18/2006) Orders: C omplete Echo (CPT-05179) R enal Artery Duplex (CPT-83865) C arotid Duplex Bilateral (CPT-54108) H olter Monitor 24 Hr (CPT-44370) S leep Study (*) Bulmaro Riggs [facility]: T oneal following medications were removed from the medication list: Lasix 20 Mg Tabs (Furosemide) ..... Once daily Her updated medication list for this problem includes: Accupril 20 Mg Tabs (Quinapril hcl) ..... One tab. daily BP today: 170/98 P rior BP: 148/96 (01/08/2008) Orders: C omplete Echo (CPT-31483) R enal Artery Duplex (CPT-98471) C arotid Duplex Bilateral (CPT-13990) H olter Monitor 24 Hr (CPT-84189) S leep Study (*) Bulmaro Riggs MD [place] [facility] [place]. Albrecht: T oneal following medications were removed from the medication list: Proventil Hfa Aers (Albuterol sulfate aers) ..... Qid Medrol (andrea) Tabs (Methylprednisolone tabs) ..... Take as directed Albuterol 90 Mcg/act Aers (Albuterol) Her updated medication list for this problem includes: Singulair 10 Mg Tabs (Montelukast sodium) ..... Daily Duoneb Soln (Ipratropium-albuterol soln) ..... Four times a day Combivent Aero (Ipratropium-albuterol aero) ..... 2 puffs by mouth four times a day Advair Diskus 500-50 Mcg/dose Misc (Fluticasone-salmeterol) ..... Bid Pulmonary Functions Reviewed: O 2 sat: 98 (04/21/2008) Orders: C omplete Echo (CPT-74036) R enal Artery Duplex (CPT-55704) Carotid Duplex Bilateral (CPT-81065) H olter Monitor 24 Hr (CPT-81997) S leep Study (*) Bulmaro Riggs [facility]: O rders: C omplete Echo (CPT-14193) R enal Artery Duplex (CPT-00393) C arotid Duplex Bilateral (CPT-58305) H olter Monitor 24 Hr (CPT-58693) S leep Study (*) Bulmaro Riggs MD [place] [facility] [place] [place]. Albrecht: T oneal following medications were removed from the medication list: Nitroglycerin Pt24 (Nitroglycerin pt24) ..... 0.4mg as needed. Her updated medication list for this problem includes: Accupril 20 Mg Tabs (Quinapril hcl) ..... One tab. daily Isosorbide Mononitrate Cr 30 Mg Tb24 (Isosorbide mononitrate) ..... One tab. daily Simvastatin 20 Mg Tabs (Simvastatin) ..... One tab. daily BP today: 170/98 Prior BP: 148/96 (01/08/2008) N uclear Stress Findings: EF - 40%. N ormal resting EKG. N ormal perfusion scan. (01/18/2006) C ardiac Cath: EF - 50%. M ild hypokinesis of the anterolateral and apical segments. M ild diffuse distal disease in the LAD. (06/26/2007) Orders: E KG (CPT-10403) C omplete Echo (CPT-80035) R enal Artery Duplex (CPT-92688) C arotid Duplex Bilateral (CPT-65816) H olter Monitor 24 Hr (CPT-16342) S lee Study (*) C OMPREHENSIVE METABOLIC PANEL W/EGFR (31117) C BC (H/H, RBC, INDICES, WBC, PLT) (0779) Bulmaro Riggs MD office visit: T he following medications were removed from the medication list: Singulair 10 Mg Tabs (Montelukast sodium) Her updated medication list for this problem includes: Proventil Hfa Aers (Albuterol sulfate aers) ..... Qid Albuterol 90 Mcg/act Aers (Albuterol) Advair Diskus 500-50 Mcg/dose Misc (Fluticasone-salmeterol) ..... Bid Singulair 10 Mg Tabs (Montelukast sodium) ..... Daily Pulmonary Functions Reviewed: O 2 sat: 100 (01/08/2008) Bulmaro Riggs MD office visit: T he following medications were removed from the medication list: Ranexa 500 Mg Tb12 (Ranolazine) ..... One tab. twice daily Her updated medication list for this problem includes: Accupril 20 Mg Tabs (Quinapril hcl) ..... One tab. daily Simvastatin 20 Mg Tabs (Simvastatin) ..... One tab. daily Isosorbide Mononitrate Cr 30 Mg Tb24 (Isosorbide mononitrate) ..... One tab. daily Nitroglycerin Pt24 (Nitroglycerin pt24) ..... 0.4mg as needed. BP today: 148/96 Prior BP: / () N uclear Stress Findings: EF - 40%. N ormal resting EKG. N ormal perfusion scan. (01/18/2006) C ardiac Cath: EF - 50%. M ild hypokinesis of the anterolateral and apical segments. M ild diffuse distal disease in the LAD. (06/26/2007) Bulmaro Rgigs MD office visit: T he following medications were removed from the medication list: Ranexa 500 Mg Tb12 (Ranolazine) ..... One tab. twice daily Her updated medication list for this problem includes: Accupril 20 Mg Tabs (Quinapril hcl) ..... One tab. daily Isosorbide Mononitrate Cr 30 Mg Tb24 (Isosorbide mononitrate) ..... One tab. daily Nitroglycerin Pt24 (Nitroglycerin pt24) ..... 0.4mg as needed. BP today: 148/96 Prior BP: / () N uclear Stress Findings: EF - 40%. N ormal resting EKG. N ormal perfusion scan. (01/18/2006) C ardiac Cath: EF - 50%. M ild hypokinesis of the anterolateral and apical segments. M ild diffuse distal disease in the LAD. (06/26/2007) E chocardiogram: EF - 50%. N ormal LV systolic function. T race mitral regurgitation. T race tricuspid regurgitation. (01/18/2006) Bulamro Riggs MD office visit:The Pat ient was reencouraged to stop smoking. Bulmaro Riggs MD Date Name Monitor - Telemetry (Mobile Cardiac) Complete Echo Carotid Duplex Bilat eral Complete Echo STR - Adenosine Complete Echo Complete Echo THYROID PANEL WITH T SH, 3RD GENERATION CBC (INCLUDES DIFF/P LT) COMPREHENSIVE METABO LIC PANEL W/EGFR THYROID PANEL WITH T SH, 3RD GENERATION THYROID PANEL WITH T SH, 3RD GENERATION CBC (H/H, RBC, INDIC ES, WBC, PLT) COMPREHENSIVE METABO LIC PANEL W/EGFR Sleep Study Holter Monitor 24 Hr Carotid Duplex Bilat eral Renal Artery Duplex Complete Echo HISTORY OF PROCEDURES Procedure Date Procedure Name Provider Procedure Notes S tatus EKG Bulmaro Riggs MD completed Event Monitor Bulmaro Riggs MD comple jessie Event Monitor Bulmaro Riggs MD comple jessie EKG Bulmaro Riggs MD completed EKG Bulmaro Riggs MD completed EKG Bulmaro Riggs MD completed Regadenoson, 4 units Bulmaro Riggs MD completed Cardiolite, 2 units Bulmaro Riggs MD completed SPECT Images Garett Fonseca MD compl eted Stress EKG Garett Fonseca MD complet ed EKG Bulmaro Riggs MD completed SNOMED-CT: [id number] Physical Exam, Performed: Pulse Exam of Foot Bulmaro Riggs MD completed EKG Bulmaro Riggs MD completed SNOMED-CT: [id number] Current Medications Documented Bulmaro Riggs MD completed EKG Bulmaro Riggs MD completed EKG Bulmaro Riggs MD completed EKG Bulmaro Riggs MD completed EKG Bulmaro Riggs MD completed EKG Bulmaro Riggs MD completed
--- OUTSIDE RECORDS SUMMARY | 2024-03-27 03:33 | XMS_ITS | Clinical Summary ---
Author Organization [facility] Apparent Address [address] [place] [address] Care Team Providers Care Custom Clothier Name Role Phone Jorge Luis Hill MD Primary Care Provider [phone] Source Comments [facility] Apparent,non-owned Affiliates and Associated Physician Practices is amultiple site organization consisting of ambulatory clinics and hospital sitesin [place], [place], [place] and [place]. This disclosure is being madepursuant to the Care Everywhere program and may not contain all information available regarding this patient. Last updated 17.[facility] Apparent Allergies No known active allergies Medications * Be aware that medications may not be up to date on this document. Alwaysverify current medications with the patient. Medication Sig Dispensed Refills Start Date End Date Status carvedilol (COREG) 25 MG tablet as directed 02/21/2017 Active cloNIDine (CATAPRES) 0.1 MG tablet as directed 02/21/2017 Active furosemide (LASIX) 40 MG tablet as directed 06/09/2017 Active montelukast (SINGULAIR) 10 MG tablet as directed 03/11/2017 Active KLOR-CON 10 10 MEQ tablet as directed 02/21/2017 Active sertraline (ZOLOFT) 25 MG tablet once daily Take 3 tablets by mouth Daily. 0 05/29/2017 Active simvastatin (ZOCOR) 40 MG tablet at bedtime Take 1 tablet nightly. 0 05/29/2017 Active albuterol HFA (VENTOLIN HFA) 108 (90 Base) MCG/ACT inhaler Inhale 2 (two) puffs by mouth every 6 hours as needed Active albuterol HFA (PROAIR HFA) 108 (90 Base) MCG/ACT inhaler Inhale 2 (two) puffs by mouth every 6 hours as needed Active alendronate (FOSAMAX) 70 MG tablet Take 70 mg by mouth every 7 days before meal Take in morning with full glass of water on empty stomach and remain upright for 30 min Active losartan (COZAAR) 50 MG tablet Take 1 (one) tablet by mouth once daily Active pantoprazole EC (PROTONIX) 40 MG tablet Take 1 (one) tablet by mouth once daily Active metoclopramide (REGLAN) 10 MG tablet Take 1 (one) tablet by mouth 3 times daily before meals Active amitriptyline (Elavil) 50 MG tablet Take 1 (one) tablet by mouth at bedtime 03/08/2023 Active aspirin EC (Ecotrin) 81 MG tablet Take 1 (one) tablet by mouth every morning Active budeson-glycopyrro l-formoterol (Breztri Aerosphere) 160-9-4.8 MCG/ACT inhaler Inhale 2 (two) puffs by mouth 2 times daily 11/30/2022 Activ e vitamin D3 (Cholecalciferol) 10 MCG (400 UNIT) capsule Take 1 (one) capsule by mouth every 7 days Active Cyanocobalamin (Dodex) 1000 MCG/ML SOLN Inject 1,000 (one thousand) mcg subcutaneously as directed 01/02/2022 Active dicyclomine (Bentyl) 20 MG tablet Take 1 (one) tablet by mouth 4 times daily 03/08/2023 Active escitalopram (Lexapro) 20 MG tablet Take 1 (one) tablet by mouth as directed 03/08/2023 Active loratadine (Claritin) 10 MG tablet Take 1 (one) tablet by mouth once daily 03/28/2022 Active metFORMIN (Glucophage) 1000 MG tablet Take 1 (one) tablet by mouth once daily Active naloxone HCl (Narcan) 4 MG/0.1ML nasal spray [place] 40 (forty) sprays into the nose as directed 05/19/2022 Active omeprazole (PriLOSEC) 40 MG capsule Take 1 (one) capsule by mouth once daily 03/08/2023 Active QUEtiapine (SEROquel) 100 MG tablet Take 1 (one) tablet by mouth every morning 03/10/2023 Active QUEtiapine (SEROquel) 400 MG tablet Take 1 (one) tablet by mouth as directed 03/08/2023 Active Januvia 50 MG tablet Take 1 (one) tablet by mouth once daily 02/15/2023 Active sulfamethoxazole-t rimethoprim (Bactrim DS; Septra DS) 800-160 MG tablet Take 1 (one) tablet by mouth 2 times daily 03/08/2023 Active albuterol (Proventil;Ventoli n) (2.5 MG/3ML) 0.083% nebulizer solution Inhale 2.5 (two and one-half) mg by mouth as directed 11/28/2022 Active rOPINIRole (Requip) 0.5 MG tablet Take 1 (one) tablet by mouth once daily 03/08/2023 Active rOPINIRole (Requip) 1 MG tablet Take 1 (one) tablet by mouth as directed 10/04/2022 Active rosuvastatin (Crestor) 20 MG tablet Take 1 (one) tablet by mouth once daily Active Active Problems No known active problems Immunizations Name Administration Dates Next Due INFLUENZA VACCINE, QUADR. (F LUZONE; FLULAVAL; FLUARIX; AFLURIA QUADRIVALENT; 6MO+), 0.5 ML (IIV4) 12/28/2022,01/10/2022,03/05/2021 TDAP, HISTORIC VACCINE 12/17/2019 Family History Medical History Relation Name Comments CVA Mother Hypertension Mother Relation Name Status Comments Mother Social History Tobacco Use Types Packs/Day Years Used Date Smoking Tobacco: Every Day Cigarettes Smokeless Tobacco: Never Tobacco Cessation:Ready to Q uit: No; Counseling Given: No Alcohol Use Standard Drinks/Week Comments Not Currently 0 (1 standard drink = 0.6 oz pur e alcohol) Sex and Gender Information Value Date Recorded Sex Assigned at Not on file Gender Identity Not on file Sexual Orientation Not on file Last Filed Vital Signs Vital Sign Reading Time Taken Comments Blood Pressure 155/92 03/24/2023 2:17 PM DRIVER MESSENGER Pulse 101 03/24/2023 2:17 PM DRIVER MESSENGER Temperature 36.7 ??C (98 ??F) 03/24/2023 2:17 PM DRIVER MESSENGER Respiratory Rate 18 03/24/2023 2:17 PM DRIVER MESSENGER Oxygen Saturation 96% 03/24/2023 2:17 PM DRIVER MESSENGER Inhaled Oxygen Concentration - - Weight 84.3 kg (185 lb 12.8 oz) 03/24/2023 2:17 PM DRIVER MESSENGER Height 162.6 cm (5' 4 ) 03/24/2023 2:17 PM DRIVER MESSENGER Body Mass Index 31.89 03/24/2023 2:17 PM DRIVER MESSENGER Plan of Treatment Upcoming Encounters Date Type Department Care Team (Late st Contact Info) Description 05/31/2024 1:15 PM CDT Appointment [facility] [address] [place] [phone] Bridger Qureshi, HUMAN [employer]OGR[employer]HY FACULT[employer] MEMBER-PAEDIATRICIAN [address] [place] [address] Health Maintenance Due Date Last Done Comments COLOGUARD (AGES 45-75) - COLON CA SCREENING 1965 COLON MONITORING 1965 COLONOSCOPY - COLON CA SCREENING 1965 CT COLONOGRAPHY - COLON CA SCREENING 1965 Colorectal Cancer Screening 1965 FIT - COLON CA SCREENING 1965 FLEX SIG - COLON CA SCREENING 1965 PAP SMEAR 1965 HIV SCREENING 02/04/1980 HEPATITIS C SCREENING 01/30/1983 HEPATITIS B VACCINE (1 of 3 - 19+ 3-dose series) 02/04/1984 PNEUMOCOCCAL VACCINE 50+ (1 of 2 - PCV) 02/04/1984 PNEUMOCOCCAL VACCINE (1 of 2 - PCV) 02/04/1984 ZOSTER VACCINE (1 of 2) 2015 MAMMOGRAM 11/14/2020 11/14/2018 SCREENING FOR DIABETES 03/15/2023 COVID-19 VACCINE ( season) 2023 03/02/2022, 10/11/2021, 08/26/2020, Additional history exists INFLUENZA VACCINE (#1) 2023 3, 01/10/2022, 03/05/2021 DEPRESSION SCREENING 02/28/2024 DTAP/TDAP/TD VACCINES (2 - Td or Tdap) 12/16/2029 12/17/2019 HIB VACCINE Aged Out No longer eligi ble based on patient's age to complete this topic HPV VACCINE Aged Out No longer eligi ble based on patient's age to complete this topic MENINGOCOCCAL (Group B) VACCINE Aged Out No longer eligible based on patient's age to complete this topic MENINGOCOCCAL VACCINE Aged Out No destiny ginny eligible based on patient's age to complete this topic Care Teams Custom Clothier Relationship Specialty Start Date End Date Jorge Luis Hill MD [address] [place] [address] PCP - General 02/10/17
--- OUTSIDE RECORDS SUMMARY | 2024-03-27 03:33 | XMS_ITS | Data Portability ---
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 Plan of Treatment Reminders Order Date Submit Date Provider Last Modified By Organization Details Last Modified Time Details Appointments None recorded. Lab None recorded. Referral None recorded. Procedures None recorded. Surgeries None recorded. Imaging None recorded. Medication Orders ropinirole 0.5 mg tablet [address] [facility], [address] [place], [address], 3 21:39:36 Breztri Aerosphere 160 mcg-9mcg-4. 8mcg/actuat ion HFA aerosol inhaler 2022 023 [id number], [address] [place], [place], [id number], 3 21:32:06 albuterol sulfate HFA 90 mcg/actuati on aerosol inhaler 2022 023 [facility][id number], [address], [place], [id number], 3 21:32:06 Patient TargetsNo targets recorded. Patient InstructionsNo instructions recorded. Reason for Referral None Reported. Results Created Date Observation Date Name Description Value Unit Range Abnormal Flag Note LastModifiedBy Organization Detail LastModifiedTime 12/11/1912/07/2021 six minut e walk test* No observ ation record ed. [id number] [facility] ([facility] [address] [facility] [address], [place], [address], 04/27/2022 01:23:36 12/11/19 22 12/07/2021 compl ete PFT w/ post [facility] hodil ator clarisa metry * No observ ation record ed. [id number] [facility] ([facility]) [facility] [address] [facility], [place], [address], 04/27/2022 01:23:36 12/25/19 22 12/07/2021 compl ete PFT w/ post [facility] hodil ator clarisa metry * No observ ation record ed. [id number] [facility] ([facility]) [address] [place] [address] [address] [facility], [place], [address], 04/27/2022 01:23:36 12/25/19 22 12/07/2021 six minut e walk test* No observ ation record ed. [id number] [facility] ([facility]) [address] [place] [address] [address] [facility], [place], [address], 04/27/2022 01:23:36 Result Notes None recorded. Problems Name Problem SNOMED Code Status Onset Date Resolution Date Notes Provider Name and Address Organization Details Recorded Time Chronic obstructive pulmonary disease 40312160 Active 2017 Not Available [facility] 3 01:04:05 Body mass index 30+ - obesity 883565200 Active 2017 Not Available [facility] 3 01:04:05 Abscess of submandibular region 33618168 Active 2021 Not Available [facility] 3 01:04:05 Gastroesophag eal reflux disease without esophagitis 206514932 Active 2017 Not Available [facility] 3 01:04:05 Tachycardia 4251350 Active 2021 Not Available [facility] 3 01:04:05 Periodic limb movement disorder 072583482 Active 2017 Not Available [facility] 3 01:04:05 Infection of tooth 330653378 Active 2021 Not Available [facility] 3 01:04:05 Nicotine dependence 67449448 Active 2020 Not Available [facility] 3 01:04:05 Dyspnea on exertion 24166411 Active 2017 Not Available [facility] 3 01:04:06 Allergic rhinitis 06800947 Active 2020 Not Available [facility] 3 01:04:06 Hemoptysis 73711027 Active 2021 Not Available [facility] 3 01:04:06 Chronic cough 25605285 Active 2021 Not Available [facility] 3 01:04:06 Obstructive sleep apnea syndrome 53719396 Active 2017 Not Available [facility] 3 01:04:06 Fatigue 04763664 Active 2017 Not Available [facility] 3 01:04:06 Tobacco dependence syndrome 82495638 Active 2017 Not Available [facility] 3 01:04:06 Problem Notes None recorded. Procedures Surgical History Date Name Laterality Status Provider Name and Address Organization Details Recorded Time 2 colonoscopy completed Not Available [facility] 04/28/19 23 00:52:48 Imaging Results Imaging Date Name Status LastModified by Organization Details LastModified Time 12/07/2021 complete PFT w/ post bronchodilator spirometry* completed [id number] [facility] ([facility] [address] [place] [address], [phone], 04/27/2022 01:23:36 12/07/2021 six minute walk test* completed [id number] [facility] ([facility] [address] [place] [address], [address], 04/27/2022 01:23:36 12/07/2021 six minute walk test* completed [id number] [facility] [address] [place] [address], [address], 04/27/2022 01:23:36 12/07/2021 complete PFT w/ post bronchodilator spirometry* completed [id number] [facility] ([facility] [address], [place], [address], 04/27/2022 01:23:36 Procedure Notes None recorded. Medical Equipment None Reported. Allergies No known drug allergies Medications Name Sig Start Date Stop Date Status Note LastModified by Organization Details LastModified Time Prescriptio n - Renewal active Not Available Not Available Not Available losartan 50 mg tablet TK 1 T PO QD active Not Available Not Available No t Available amoxicillin 500 mg capsule Take 1 capsule every 8 hours by oral route as directed for 10 days. active Not Available Not Available No t Available furosemide 40 mg tablet active Not Available Not Available Not Available methocarbam ol 500 mg tablet active Not Available Not Available Not Available carvedilol 25 mg tablet 04/01 completed Not Available Not Available Not Available nystatin 100,000 unit/mL oral suspension Take 5 mL 4 times a day by oral route as directed for 10 days. 05/24 completed Not Available Not Available Not Available clonidine HCl 0.1 mg tablet TK 1 T PO QD HS active Not Available Not Available No t Available prednisone 10 mg tablet 05/24 completed Not Available Not Available Not Available doxycycline hyclate 100 mg capsule active Not Available Not Available N ot Available atorvastati n 20 mg tablet 05/24 completed Not Available Not Available Not Available carvedilol 12.5 mg tablet TK 1 T PO BID 05/24 completed Not Available Not Available Not Available naproxen 375 mg tablet active Not Available Not Available Not Available ropinirole 1 mg tablet Take 1 tablet every day by oral route at bedtime for 30 days. 2022 active Not Available Not Available Not Avai lable quetiapine 300 mg tablet active Not Available Not Available Not Available Klor-Con 10 mEq tablet,exte nded release 12/21 completed Not Available Not Available Not Available clindamycin HCl 300 mg capsule 08/17 completed Not Available Not Available Not Available albuterol sulfate 2.5 mg/3 mL (0.083 %) solution for nebulizatio n Inhale 3 mL 4 times a day by nebulizat ion route as directed for 30 days. 2022 active Not Available Not Available Not Avai lable trazodone 50 mg tablet 04/01 completed Not Available Not Available Not Available cetirizine 10 mg tablet Take 1 tablet every day by oral route as directed for 30 days. 05/24 completed Not Available Not Available Not Available azithromyci n 250 mg tablet TK UTD 11/11 completed Not Available Not Available Not Available nicotine (polacrilex ) 2 mg gum Chew 1 piece of gum every 3-4 hours by oral route as needed for 30 days. 04/01 completed Not Available Not Available Not Available tizanidine 4 mg tablet 05/24 completed Not Available Not Available Not Available benzonatate 200 mg capsule Take 1 capsule 3 times a day by oral route as directed for 10 days. 05/24 completed Not Available Not Available Not Available hydrocodone 5 mg-acetamin ophen 325 mg tablet 08/17 completed Not Available Not Available Not Available fluconazole 200 mg tablet active Not Available Not Available Not Available sucralfate 1 gram tablet active Not Available Not Available Not Available ondansetron HCl 4 mg tablet 05/24 completed Not Available Not Available Not Available prednisone 20 mg tablet Take 2 tablets every day by oral route in the morning for 5 days. 05/24 completed Not Available Not Available Not Available alendronate 70 mg tablet active Not Available Not Available Not Available clonazepam 0.5 mg tablet 12/21 completed Not Available Not Available Not Available sertraline 100 mg tablet TK 2 TS PO QD IN THE MORNING 05/24 completed Not Available Not Available Not Available quetiapine 200 mg tablet 05/24 completed Not Available Not Available Not Available diltiazem CD 360 mg capsule,ext ended release 24 hr active Not Available Not Available Not Available acyclovir 400 mg tablet 11/11 completed Not Available Not Available Not Available ciprofloxac in 500 mg tablet active Not Available Not Available Not Available sulfamethox azole 800 mg-trimetho prim 160 mg tablet 05/24 completed Not Available Not Available Not Available omeprazole 40 mg capsule,del ayed release active Not Available Not Available Not Available aspirin 81 mg tablet,gianni yed release Take 1 tablet every day by oral route. 2017 active Not Available Not Available Not Avai lable tramadol 50 mg tablet 08/04 completed Not Available Not Available Not Available quetiapine 100 mg tablet 05/24 completed Not Available Not Available Not Available amitriptyli ne 50 mg tablet TK 1 T PO QHS active Not Available Not Available No t Available acetaminoph en 500 mg tablet active Not Available Not Available Not Available simvastatin 40 mg tablet TK 1 T PO QPM WITH A MEAL 04/01 completed Not Available Not Available Not Available glimepiride 2 mg tablet Take 2 tablets twice a day by oral route before meals for 90 days. 05/24 completed Not Available Not Available Not Available ketorolac 10 mg tablet 05/24 completed Not Available Not Available Not Available oxycodone-a cetaminophe n 5 mg-325 mg tablet 05/24 completed Not Available Not Available Not Available ofloxacin 0.3 % ear drops active Not Available Not Available Not Available oxycodone-a cetaminophe n 10 mg-325 mg tablet active Not Available Not Available No t Available ropinirole 0.25 mg tablet TAKE 1 TABLET BY MOUTH EVERY NIGHT 2 TO 3 HOURS BEFORE BEDTIME 05/24 completed Not Available Not Available Not Available ampicillin- sulbactam 3 gram solution for injection active Not Available Not Available No t Available dicyclomine 20 mg tablet active Not Available Not Available Not Available amitriptyli ne 10 mg tablet 04/01 completed Not Available Not Available Not Available meclizine 25 mg tablet TK 1 T PO D 03/09 completed Not Available Not Available Not Available potassium citrate ER 10 mEq (1,080 mg) tablet,exte nded release 04/01 completed Not Available Not Available Not Available hydrocortis one 1 % topical cream OBI EXT AA BID active Not Available Not Available No t Available cephalexin 500 mg capsule 05/24 completed Not Available Not Available Not Available pantoprazol e 40 mg tablet,gianni yed release TK 1 T PO BID 05/24 completed Not Available Not Available Not Available cyanocobala min (vit B-12) 1,000 mcg/mL injection solution Inject 1 mL every week by subcutane ous route in the morning for 90 days. active Not Available Not Available No t Available metformin 1,000 mg tablet active Not Available Not Available Not Available ropinirole 0.5 mg tablet Take 1 tablet every day by oral route at bedtime for 30 days. 2022 active Not Available Not Available Not Avai lable Advair Diskus 250 mcg-50 mcg/dose powder for inhalation Inhale 1 puff twice a day by inhalatio n route as directed for 30 days. active Not Available Not Available No t Available oxybutynin chloride ER 5 mg tablet,exte nded release 24 hr TK 1 T PO QD 04/01 completed Not Available Not Available Not Available sertraline 25 mg tablet 03/27 completed Not Available Not Available Not Available montelukast 10 mg tablet TAKE 1 TABLET BY MOUTH EVERY DAY DIRECTED 2022 active Not Available Not Available Not Avai lable sodium chloride 0.9 % intravenous solution active Not Available Not Available Not Available ergocalcife rol (vitamin D2) 1,250 mcg (50,000 unit) capsule TK 1 C PO WEEKLY active Not Available Not Available No t Available ibuprofen 600 mg tablet 05/24 completed Not Available Not Available Not Available cefuroxime axetil 500 mg tablet 05/24 completed Not Available Not Available Not Available levofloxaci n 500 mg tablet 11/10 completed Not Available Not Available Not Available methylpredn isolone 4 mg tablets in a dose pack TK UTD 08/04 completed Not Available Not Available Not Available albuterol sulfate HFA 90 mcg/actuati on aerosol inhaler 2 puffs PO Q 4 H PRN 2022 active Not Available Not Available Not Avai lable ferrous sulfate 325 mg (65 mg iron) tablet,gianni yed release active Not Available Not Available Not Available celecoxib 100 mg capsule active Not Available Not Available Not Available losartan 100 mg tablet 04/01 completed Not Available Not Available Not Available metformin ER 500 mg tablet,exte nded release 24 hr 05/24 completed Not Available Not Available Not Available sertraline 50 mg tablet 05/24 completed Not Available Not Available Not Available dicyclomine 10 mg capsule TK 1 C PO BID 05/24 completed Not Available Not Available Not Available loratadine 10 mg tablet Take 1 tablet every day by oral route as directed for 30 days. 2022 active Not Available Not Available Not Avai lable naproxen 500 mg tablet TK 1 T PO BID WITH FOOD 08/04 completed Not Available Not Available Not Available metoclopram rhonda 10 mg tablet TK 1 T PO TID AC active Not Available Not Available No t Available amoxicillin 875 mg-potassiu m clavulanate 125 mg tablet Take 1 tablet every 12 hours by oral route as directed for 7 days. 05/24 completed Not Available Not Available Not Available oxycodone 5 mg tablet TAKE 1 TABLET BY MOUTH EVERY 8 HOURS NEEDED FOR PAIN . TAKE WITH WOUND PACKING CHANGES. 05/24 completed Not Available Not Available Not Available ertapenem 1 gram solution for injection active Not Available Not Available No t Available escitalopra m 10 mg tablet 05/24 completed Not Available Not Available Not Available escitalopra m 20 mg tablet active Not Available Not Available Not Available metformin ER 750 mg tablet,exte nded release 24 hr TK 1 T PO D WITH TED MEAL 07/01 completed Not Available Not Available Not Available rosuvastati n 20 mg tablet TAKE 1 TABLET BY MOUTH DAILY active Not Available Not Available No t Available potassium chloride ER 10 mEq tablet,exte nded release(par t/cryst) 11/10 completed Not Available Not Available Not Available Spiriva with HandiHaler 18 mcg and inhalation capsules Inhale 1 capsule every day by inhalatio n route as directed for 30 days. active Not Available Not Available No t Available chlorhexidi ne gluconate 0.12 % mouthwash active Not Available Not Available No t Available quetiapine 50 mg tablet TK 1 T PO QD UTD active Not Available Not Available No t Available quetiapine 400 mg tablet active Not Available Not Available Not Available Januvia 50 mg tablet active Not Available Not Available No t Available micafungin 100 mg intravenous solution active Not Available Not Available Not Available oxycodone 10 mg tablet TAKE 1 TABLET BY MOUTH EVERY 4 HOURS NEEDED FOR PAIN active Not Available Not Available No t Available Prevnar 13 (PF) 0.5 mL intramuscul ar syringe active Not Available Not Available N ot Available Chantix Continuing Month Box 1 mg tablet Take 1 tablet twice a day by oral route as directed for 30 days. 04/01 completed Not Available Not Available Not Available Chantix Starting Month Box 0.5 mg (11)-1 mg (42) tablets in dose pack Take 1 startr pk by oral route as directed. 04/01 completed Not Available Not Available Not Available Farxiga 10 mg tablet Take 1 tablet every day by oral route in the morning for 90 days. active Not Available Not Available No t Available Spiriva Respimat 2.5 mcg/actuati on solution for inhalation INHALE 2 PUFFS BY MOUTH EVERY DAY DIRECTED 08/04 completed Not Available Not Available Not Available Narcan 4 mg/actuatio n nasal spray active Not Available Not Available Not Available Trelegy Ellipta 100 mcg-62.5 mcg-25 mcg powder for inhalation USE 1 INHALATIO N DAILY DIRECTED (TO REPLACE ALL OTHER INHALERS EXCEPT RESCUE ALBUTEROL ) 11/11 completed Not Available Not Available Not Available Breztri Aerosphere 160 mcg-9mcg-4. 8mcg/actuat ion HFA aerosol inhaler Inhale 2 puffs twice a day by inhalatio n route as directed for 30 days. 2022 active Not Available Not Available Not Avai lable Vitals Date Recorded Body mass index (BMI) Body height Oxygen saturation Oxygen saturation in Arterial blood by Pulse oximetry Heart rate Body weight Systolic blood pressure Diastolic blood pressure Provider Name and Address Organization Details Last Updated DateTime 2 42.8 kg/m2 156.21 cm 98 % 98 % 90 /min 961985. 25 g 126 mm[Hg] 72 mm[Hg] Not Available [facility] 3 00:54:34 Date Recorded Body height Oxygen saturation Oxygen saturation in Arterial blood by Pulse oximetry Heart rate Systolic blood pressure Diastolic blood pressure Provider Name and Address Organization Details Last Updated DateTime 2 156.21 cm 98 % 98 % 91 /min 120 mm[Hg] 62 mm[Hg] Not Available [facility] 3 00:54:34 Date Recorded Body height Body temperature Heart rate Oxygen saturation Oxygen saturation in Arterial blood by Pulse oximetry Inhaled oxygen flow rate Systolic blood pressure Diastolic blood pressure Provider Name and Address Organization Details Last Updated DateTime 3 156.21 cm 96.6 [degF] 100 /min 97 % 97 % 2 L/min 120 mm[Hg] 70 mm[Hg] Bessie Ty MA [facility] [employer] [facility] 3 14:04:16 Date Recorded Body height Body temperature Heart rate Oxygen saturation Oxygen saturation in Arterial blood by Pulse oximetry Inhaled oxygen flow rate Systolic blood pressure Diastolic blood pressure Provider Name and Address Organization Details Last Updated DateTime 3 156.21 cm 97.3 [degF] 98 /min 95 % 95 % 2 L/min 120 mm[Hg] 64 mm[Hg] Bessie Ty MA [facility] [employer] [facility] 3 14:25:29 Date Recorded Body height Heart rate Oxygen saturation Oxygen saturation in Arterial blood by Pulse oximetry Inhaled oxygen flow rate Systolic blood pressure Diastolic blood pressure Provider Name and Address Organization Details Last Updated DateTime 3 156.21 cm 112 /min 97 % 97 % 2 L/min 118 mm[Hg] 68 mm[Hg] Laura Kwon [facility] [employer] [facility] 3 16:29:56 Social History Question Answer Notes LastModified by Organization Details LastModified Time Tobacco Smoking Status Current Every Day Smoker Not Available [facility] 04/27/2022 00:48:19 Do You Have An Advance Directive? No [id number] Information not available 04/27/2022 What Is Your Level Of Alcohol Consumption? None MIGRATION.0301 [id number] Information not available 04/27/2022 What Is Your Level Of Caffeine Consumption? Heavy Coffee Drinker All Day Longer MIGRATION.0301 [id number] Information not available 04/27/2022 How Much Tobacco Do You Chew? None MIGRATION.0301 [id number] Information not available 04/27/2022 In The 14 Days Before Symptom Onset, Have You Had Close Contact With A Laboratory-confi rmed COVID-19 While That Case Was Ill? No MIGRATION.0301 [id number] Information not available 04/27/2022 In The 14 Days Before Symptom Onset, Have You Had Close Contact With A Person Who Is Under Investigation For COVID-19 While That Person Was Ill? No MIGRATION.0301 [id number] Information not available 04/27/2022 What Type Of Diet Are You Following? REGULAR MIGRATION.0301 [id number] Information not available 04/27/2022 Which Illicit Or Recreational Drugs Have You Used? None MIGRATION.0301 [id number] Information not available 04/27/2022 Do You Or Have You Ever Used E-cigarettes Or Vape? Never Used Electronic Cigarettes MIGRATION.0301 [id number] Information not available 04/27/2022 Do You Have An Electrostatic Air Filter? 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 No MIGRATION.0301 [id number] Information not available 04/27/2022 Where Do You Live? [facility] MIGRATION.0301 [id number] Information not available 04/27/2022 Do You Have Moisture Problems In Your Home? No MIGRATION.0301 [id number] Information not available 04/27/2022 What Was The Date Of Your Most Recent Tobacco Screening? 12/01/2020 MIGRATION.0301 [id number] Information not available 04/27/2022 How Many Children Do You Have? 2 MIGRATION.0301 [id number] Information not available 04/27/2022 Have You Ever Been Counseled For Unhealthy Alcohol Use? No MIGRATION.0301 [id number] Information not available 04/27/2022 Do You Have Any Pets? Yes Dogs Inside MIGRATION.0301 [id number] Information not available 04/27/2022 Do You Have Smoke And Carbon Monoxide Detectors In Your Home? Yes MIGRATION.0301 [id number] Information not available 04/27/2022 At What Age Did You Start Smoking Tobacco? 12 MIGRATION.0301 [id number] Information not available 04/27/2022 Are You Passively Exposed To Smoke? Yes MIGRATION.0301 [id number] Information not available 04/27/2022 Do You Or Have You Ever Used Smokeless Tobacco? Never Used Smokeless Tobacco MIGRATION.0301 [id number] Information not available 04/27/2022 How Much Tobacco Do You Smoke? 0.5 PPD MIGRATION.0301 [id number] Information not available 04/27/2022 Do You Use Any Illicit Or Recreational Drugs? No MIGRATION.0301 [id number] Information not available 04/27/2022 Has Tobacco Cessation Counseling Been Provided? No MIGRATION.0301 [id number] Information not available 04/27/2022 How Many Years Have You Smoked Tobacco? 47 MIGRATION.0301 [id number] Information not available 04/27/2022 Have You Recently Traveled Abroad? No MIGRATION.0301 [id number] Information not available 04/27/2022 Do You Have Any Dietary Restrictions? No MIGRATION.030 [id number] Information not available 04/27/2022 Do You Or Have You Ever Used Any Other Forms Of Tobacco Or Nicotine? No MIGRATION.030 [id number] Information not available 04/27/2022 Sex: Female Functional Status Question Answer Note LastModified by Organizat ion Details LastModified Time What is your exercise level? None [id number] Information not available 04/27/2022 Mental Status None recorded. Family History Relationship Description Onset Age of this Age Resolved Age Notes LastModified by Organization Details LastModified Time Mother Heart disease [id number] [id number] Not available 04/27/2022 00:52:53 Mother Hyperlipidem ia MIGRATION.851 [id number] Not available 04/27/2022 00:52:53 Father Diabetes mellitus MIGRATION.118 [id number] Not available 04/27/2022 00:52:54 Father Hypertensive disorder MIGRATION.278 [id number] Not available 04/27/2022 00:52:54 Father Hyperlipidem ia MIGRATION.566 [id number] Not available 04/27/2022 00:52:54 Maternal Grandmother Hypertensive disorder MIGRATION.786 [id number] Not available 04/27/2022 00:52:54 Maternal Grandmother Diabetes mellitus MIGRATION.601 [id number] Not available 04/27/2022 00:52:54 Maternal Grandmother Hyperlipidem ia MIGRATION.044 [id number] Not available 04/27/2022 00:52:54 Maternal Aunt Tuberculosis MIGRA TION.552 [id number] Not available 04/27/2022 00:52:54 Medical History Condition Response LUNG DISEASE/DISORDER Y INSOMNIA Y HIGH CHOLESTEROL / HYPERLIPIDEMIA Y HAVE YOU BEEN HOSPITALIZED OR SEEN IN [facility] IN THE PAST YEAR ? Y OBESITY Y GERD/NAUSEA Y DIABETES, TYPE Y HEADACHES/MIGRAINES Y HYPERTENSION Y Gynecological HistoryNo gynecological history recorded. Obstetrics History GPAL:G 0 P 0 0 0 0 Immunizations Vaccine Type Date Status Note Provider [facility] e and Address Organization Details Recorded Time COVID-19, mRNA, LNP-S, PF, 30 mcg/0.3 mL dose 08/26/2020 completed Not [facility] 01[facility]22[facility]02 COVID-19, mRNA, LNP-S, PF, 30 mcg/0.3 mL dose 08/05/2020 completed Not Available [facility] 01:22:02 Influenza, split virus, quadrivalent, PF 01/10/2022 completed Not Available [facility] 01:22:03 Past Encounters Encounter ID Performer Location Encounter Start Date Encounter Closed Date Diagnosis/Indication Diagnosis SNOMED-CT Code Diagnosis ICD10 Code Diagnosis Note [id number] [facility] [place] [address] [address] 05/04/2020 00:00:00 05/04/2020 16:30:03 [id number] [facility] [place] [address] [place] [address] 08/04/2020 00:00:00 08/04/2020 22:05:39 [id number] [facility] [place] [address] [place] [address] 12/01/2020 00:00:00 12/01/2020 16:42:55 [id number] [facility] [place] [address] [place] [address] 01/18/2021 00:00:00 01/18/2021 13:55:44 [id number] _ATHFELIBERTO_M IGRATION_ DEFAULT_1 _1 , 05/06/2021 00:00:00 05/06/2021 20:34:03 [id number] [facility] [place] [address] [place] [address] 05/17/2021 00:00:00 05/17/2021 15:36:20 [id number] _ATHENA_M IGRATION_ DEFAULT_1 _1 , 07/01/2021 00:00:00 07/01/2021 18:04:40 [id number] [facility] [place] [address] [place] [address] 08/17/2021 00:00:00 08/17/2021 15:25:57 [id number] [facility] [place] [address] [place] [address] 11/29/2021 00:00:00 11/29/2021 14:11:03 [id number] [facility] [place] [address] [place] [address] 01/10/2022 00:00:00 01/10/2022 22:47:30 [id number] [facility] [address]elia Whyte, [address] [address] 08/17/2020 00:00:00 08/17/2020 19:27:11 [id number] [facility] Lelia Whyte, [address] [address] 09/16/2020 00:00:00 09/16/2020 17:31:30 [id number] [facility] Lelia Whyte, [address] [address] 10/14/2020 00:00:00 10/14/2020 16:40:48 [id number] [facility] 4 Lelia Whyte, [address] [address] 11/11/2020 00:00:00 11/11/2020 16:25:13 [id number] [facility] Lelia Whyte, [address] [address] 12/10/2020 00:00:00 12/10/2020 16:23:52 [id number] [facility] Lelia Whyte, [address] [address] 02/01/2021 00:00:00 02/01/2021 12:49:29 [id number] [facility] Lelia Whyte, [address] [address] 03/18/2021 00:00:00 03/18/2021 15:50:51 [id number] [facility] 4 Lelia Whyte, [address] [address] 04/28/2021 00:00:00 04/28/2021 16:40:45 [id number] [facility] [address] [address] 05/26/2021 00:00:00 05/26/2021 18:15:58 [id number] [facility] [address] [address] 06/23/2021 00:00:00 06/23/2021 17:59:26 [id number] [facility] [address] [address] 07/21/2021 00:00:00 07/21/2021 18:12:22 [id number] [facility] [address] [address] 09/23/2021 00:00:00 09/24/2021 15:34:34 [id number] [facility] [address] [address] 10/26/2021 00:00:00 10/27/2021 11:35:19 [id number] [facility] Lelia Whyte [address] [address] 12/23/2021 00:00:00 12/23/2021 17:16:35 [id number] [facility] [address] [address] 03/01/2022 00:00:00 03/01/2022 15:14:47 [id number] Lisa Zelaya NP [facility] [address] [address] 05/18/2022 16:17:51 05/18/2022 19:08:45 [id number] Jany Hernandez, [employer]IM[employer]-[facility] [place] [address] [place] [address] 05/24/2022 13:49:11 05/25/2022 08:31:43 Chronic obstructive pulmonary disease 06988307 J44.9 Trelegy Ellipta with persistent thrush reactions. 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 ELIOT is not correctedC ontinue Ropinirole Obstructiv e sleep apnea syndrome 73600624 G47.33 Split night titration 03/21/14 with AHI 40.3.New waste machine offbearer 02/17/20Do wnload today with 77% use greater than 4 hoursRemai ns on PAP 14 cm H2OAHI is 20.1ESS 0She has good useShe is not well correctedE ncouraged 100% compliance with all sleepFollo w with PCM for labsAdvise d good sleep habits and patterns:- Set a goal for at least 7 to 8 hours of sleep time per day.-Use the bed mainly for sleep and to go to bed only when tired.If unable to fall asleep after 30 minutes, she should get out of bed but should not engage in any activity that requires sustained mental alertness. -Maintain a regular bedtime and wake-up time even on weekends-A void excessive naps during the daytime. If a nap is necessary, limit it to no more than 30 minutes.-M inimize environmen marcel noise, bright lights, and extremes in bedroom temperatur e.-Avoid alcohol, caffeinate d beverages, and nicotine products for at least 6 hours prior to bedtime.-A void strenuous exercise and large meals for at least 4 hours prior to bedtime.Sh e is aware of reportable signs and symptomsCh ang in pressure today - APAP 12-20Also order for chin strapDownl oad in 6 weeks Dyspnea on exertion 6084 5006 R06.09 Multifacto ralLabs except RAST WNLShe must quit smoking and lose weight Abscess of submandibular region [id number] K12.2 CT Neck 12/13/21IM PRESSION:E rosion involving the mandibular symphysis extending to the rightinto the body and mandibular angle with multiple small foci of gaslikely representi ng osteomyeli tis and sequestrum formation given thelack of risk factors for osteonecro sis. A small sinus tract extendsinf eriorly to the submental region where there is a small phlegmonou scollectio n with adjacent inflammato ry change. No drainable fluidcolle ction.Surg anson completed Chronic cough 12745144 R 05.3 She must quit smoking and maintain inhaler compliance Benzonatat e PRN onlyhistor y of multiple allergies to cat, dog, grassesCon tinue ClaritinSh e needs to see reading coach - previous referralSh e will schedule this after surgery for abscess Nicotine dependence 5629 4008 Z87.891 Smoking cessation counseling and techniques reviewed at length.?Literat ure reviewed.A void triggers, support groups.Dis traction techniques Greater than 3 but less than 10 minutes spent discussing cessation. Declines NRT.Discus sed Rx options if needed in the future. Dependence on supplemental oxygen [id number] 07 Z99.81 2 liters with activity on DC from [facility] C home care: / [phone] is compliant and has good benefit [id number] Jany Hernandez, [facility] Pulmon[facility] gy [place] [address] [place] [address] 07/05/2022 13:58:42 07/06/2022 08:23:18 Chronic obstructive pulmonary disease [id number] J44.9 Trelegy Ellipta with persistent thrush reactions. Remain on Breztri 2 puffs BID.SHe has good benefitNeb ulizer for PRN useContinu e rescue MDI PRN.She is aware of reportable signs and symptoms.C ontinue montelukas tRepeat PFT 11/2021 in chart, essentiall y unchangedR TC in 6 weeks, PRN for concerns Periodic l imb movement disorder [id number] G47.61 ELIOT is correctedI ncrease Ropinirole to 1.5mg po daily 2-3 hours prior to bedDiscuss ed SE and reportable signs and symptoms Obstructiv e sleep apnea syndrome 75709764 G47.33 Split night titration 03/21/14 with AHI 40.3.New waste machine offbearer 02/17/20Do wnload today with 77% use greater than 4 hoursOn PAP 12-20 cm H2OAHI is 4.3ESS 0She has good use and benefitShe is well correctedE ncouraged 100% compliance with all sleepFollo w with PCM for labsAdvise d good sleep habits and patterns:- Set a goal for at least 7 to 8 hours of sleep time per day.-Use the bed mainly for sleep and to go to bed only when tired.If unable to fall asleep after 30 minutes, she should get out of bed but should not engage in any activity that requires sustained mental alertness. -Maintain a regular bedtime and wake-up time even on weekends-A void excessive naps during the daytime. If a nap is necessary, limit it to no more than 30 minutes.-M inimize environmen marcel noise, bright lights, and extremes in bedroom temperatur e.-Avoid alcohol, caffeinate d beverages, and nicotine products for at least 6 hours prior to bedtime.-A void strenuous exercise and large meals for at least 4 hours prior to bedtime.Sh e is aware of reportable signs and symptoms Dependence on supplemental oxygen [id number] 07 Z99.81 2 liters with activity on DC from [facility] C home care: / [phone] is compliant and has good benefitPla n to repeat this fall Dyspnea on exertion 6084 5006 R06.09 Multifacto ralLabs except RAST WNLShe must quit smoking and lose weight Chronic cough 21394226 R 05.3 She must quit smoking and maintain inhaler compliance Benzonatat e PRN only - order verbally called to pharmacy todayhisto ry of multiple allergies to cat, dog, grassesCon tinue ClaritinSh e needs to see reading coach - previous referral Abscess of submandibular region 99093682 K12.2 CT Neck 12/13/21IM PRESSION:E rosion involving the mandibular symphysis extending to the rightinto the body and mandibular angle with multiple small foci of gaslikely representi ng osteomyeli tis and sequestrum formation given thelack of risk factors for osteonecro sis. A small sinus tract extendsinf eriorly to the submental region where there is a small phlegmonou scollectio n with adjacent inflammato ry change. No drainable fluidcolle ction.Surg anson completed Nicotine dependence 5629 4008 Z87.891 Smoking cessation counseling and techniques reviewed at length.?Literat ure reviewed.A void triggers, support groups.Dis traction techniques Greater than 3 but less than 10 minutes spent discussing cessation. Declines NRT.Discus sed Rx options if needed in the future. [id number] Lisa Zelaya NP [facility] [address] [address] 08/17/2022 15:15:54 08/17/2022 18:08:44 [id number] Lisa Zelaya NP [facility] [address] [address] 09/22/2022 15:15:15 09/26/2022 17:03:51 [id number] Lisa Zelaya NP [facility] [address] [address] 11/15/2022 15:50:53 11/15/2022 16:43:16 [id number] Jany Hernandez, [facility] [place] [place] [address] [place] [address] 11/30/2022 16:05:16 11/30/2022 17:25:18 Chronic obstructive pulmonary disease [id number] J44.9 Trelegy Ellipta with persistent thrush reactions. Remain on Breztri 2 puffs BID.SAmple s to patientSe has good benefitNeb ulizer for PRN useContinu e rescue MDI PRN.She is aware of reportable signs and symptoms.C ontinue montelukas tRepeat PFT 11/2021 in chart, essentiall y unchangedA dvised vaccines this fall Periodic l imb movement disorder [id number] G47.61 ELIOT is correctedC ontinue Ropinirole to 1.5mg po daily 2-3 hours prior to bedDiscuss ed SE and reportable signs and symptoms Obstructiv e sleep apnea syndrome 35573942 G47.33 Split night titration 03/21/14 with AHI 40.3.New waste machine offbearer 02/17/20Do wnload today with 80% use greater than 4 hoursOn PAP 12-20 cm H2OAHI is 2.3ESS 0She has good use and benefitShe is well correctedE ncouraged 100% compliance with all sleepFollo w with PCM for labsAdvise d good sleep habits and patterns:- Set a goal for at least 7 to 8 hours of sleep time per day.-Use the bed mainly for sleep and to go to bed only when tired.If unable to fall asleep after 30 minutes, she should get out of bed but should not engage in any activity that requires sustained mental alertness. -Maintain a regular bedtime and wake-up time even on weekends-A void excessive naps during the daytime. If a nap is necessary, limit it to no more than 30 minutes.-M inimize environmen marcel noise, bright lights, and extremes in bedroom temperatur e.-Avoid alcohol, caffeinate d beverages, and nicotine products for at least 6 hours prior to bedtime.-A void strenuous exercise and large meals for at least 4 hours prior to bedtime.Sh e is aware of reportable signs and symptoms Dependence on supplemental oxygen [id number] 07 Z99.81 2 liters with activity on DC from [facility] C home care: / [phone] is compliant and has good benefit Dyspnea on exertion 6084 5006 R06.09 Multifacto ralLabs except RAST WNLShe must quit smoking and lose weight Chronic cough 31941131 R 05.3 She must quit smoking and maintain inhaler compliance history of multiple allergies to cat, dog, grassesCon tinue ClaritinSh e needs to see reading coach - previous referral Abscess of submandibular region 12520785 K12.2 CT Neck 12/13/21IM PRESSION:E rosion involving the mandibular symphysis extending to the rightinto the body and mandibular angle with multiple small foci of gaslikely representi ng osteomyeli tis and sequestrum formation given thelack of risk factors for osteonecro sis. A small sinus tract extendsinf eriorly to the submental region where there is a small phlegmonou scollectio n with adjacent inflammato ry change. No drainable fluidcolle ction.Surg anson completed and her wound is well approximat ed Nicotine dependence 5629 4008 Z87.891 Smoking cessation counseling and techniques reviewed at length.?Literat ure reviewed.A void triggers, support groups.Dis traction techniques Greater than 3 but less than 10 minutes spent discussing cessation. Declines NRT.Discus sed Rx options if needed in the future. [id number] Lisa Zelaya NP [facility] [address] [address] 02/09/2023 16:02:05 02/09/2023 17:31:11 [id number] Lisa Zelaya NP [facility] [address] [address] 05/02/2023 14:38:16 05/02/2023 15:37:25 [id number] Lisa Zelaya NP [facility] [address] [address] 09/25/2023 15:27:14 09/25/2023 17:33:48 [id number] Lisa Zelaya NP [facility] [address] [address] 11/30/2023 15:04:02 11/30/2023 15:47:13 [id number] Lisa Zelaya NP [facility] [address] [address] 02/14/2024 14:44:14 02/14/2024 15:16:38 Health Concerns Section Related Observation LastModified by Organization Detai ls LastModified Time None Recorded Concern Status LastModified by Organization Details LastModified Time None Recorded Advance Directives Directive N: Payers Encounter Date Sequence Insurance Name Policy Number Policy Beth Covered Member ID Beth Member ID Guarantor Name 05/24/2022 1 [facility] ON OR AFTER 08/27/20 (MEDICAID REPLACEMENT - HMO) Bev Prabhakar Grossman [id number] [place] Vanna Grossman 07/05/2022 1 [facility] ON OR AFTER 08/27/20 (MEDICAID REPLACEMENT - HMO) Bev Prabhakar Grossman [id number] Bev Prabhakar Grossman 11/30/2022 1 [facility] [place] ON OR AFTER 20 (MEDICAID REPLACEMENT - HMO) Bev Prabhakar Grossman [id number] [employer] [facility] Notes Date Note Type Note Provider Name and Address Organization Details Recorded Time 05/24/2022 text/html Bev presents today to follow up on COPD, cough, dyspnea, PLMD, ELIOT, nicotine dependence, recent hospitalization for submandibular abscess with osteomyelitis - surgical debridement and repairShtania has had part of her jaw removed with bone grafting from her backCurrently has a wound vac R/T infection in surgical siteRemains with Breztri samplesReports good benefitDenies wheezing.Cough is daily but improvedShe has significantly decreased activity tolerance and staminaLiving out of a hotel roomTells ks all she does is go to the bathroom, sit on the bed and smoke.She is compliant nightly with PAP, ropinirole is not working well for herAdmits to doubling her dose at timesShortness of breath is persistent, she remains in a wheelchair todayEndorses anxiety, poor activity tolerance and fatigue, this is unchangedSmoking about 1/4 PPDHer mobility remains significantly limited by pain.Denies chest pain and unintentional weight loss.No dysphagiaNo respiratory infection in the last 3 months Jany Hernandez, [facility] [address] [facility], [facility] [address], [place], [address], [facility] [employer] 05/24/2022 16:45:47 07/05/2022 text/html Bev presents today to follow up on COPD, cough, dyspnea, PLMD, ELIOT, nicotine dependence,Remains on Breztri - this is covered by her insuranceReports good benefitDenies wheezing.Cough is daily but improvedShe has significantly decreased activity tolerance and staminaShe is compliant nightly with PAP, ropinirole is not working well for herShe does feel like her CPAP changes have improved sleep and fatigueShortness of breath is persistent, she remains in a wheelchair todaySmoking about 1/4 PPDDenies chest pain and unintentional weight loss.No dysphagiaNo respiratory infection in the last 4 months PATRICA Hardy [address], [place] [address], [place], [address], [employer] 07/05/2022 21:43:21 11/30/2022 text/html Bev presents today to follow up on COPD, cough, dyspnea, PLMD, ELIOT, nicotine dependenceRemains on Breztri with good clinical benefitDenies wheezing.Cough is daily but improvedShtania has significantly decreased activity tolerance and staminaContinues to use wheelchair for most activityAimee is living in a hotel and does not have a car currentlyShe is compliant nightly with PAPShe does feel like her CPAP changes have improved sleep and fatigueSmoking about 1/4 PPDDenies chest pain and unintentional weight loss.No dysphagia or GERDNo respiratory infection since last OV PATRICA Hardy [address], [place] [address], [place], [address], [employer] 11/30/2022 21:36:04 OBGyn Episode No OBEpisode recorded.
--- OUTSIDE RECORDS SUMMARY | 2024-03-27 03:33 | XMS_ITS | Clinical Summary ---
Author Organization [facility] Address [address] [place] [address] Phone Care Team Providers Care Universal Grinder Operator Name Role Phone Jorge Luis Hill MD Primary Care Provider [phone] Allergies No known active allergies Medications aspirin [...] 120 tablet 2 Active cholecalciferol (VITAMIN D-3) 64436 unit tablet Take 1 tablet (50,000 Units total) by mouth once a week 10/04/201 8 Active Dodex 1,000 mcg/mL injection once [...] inhaler Inhale 2 puffs daily 1 each 11 4 Active loratadine (CLARITIN) 10 mg tablet Take 1 tablet (10 mg total) by mouth daily 30 tablet 11 4 Active sulfamethoxazole- trimethoprim (BACTRIM DS) 800-160 mg per tablet TAKE ONE (1) TABLET BY MOUTH TWICE DAILY 60 tablet 10 4 Active Active Problems Problem Noted Date Diagnosed Date Nicotine dependence, cigarettes, in remission Assessment & Plan (02/13/2024 11:57 AM SOFT WATER MECHANIC): Quit in November of 2023 She is due for annual CT chest in February of 2023 Chronic respiratory failure with hypoxia, on home O2 therapy ([facility]) 02/13/2024 Assessment & Plan (02/13/2024 11:58 AM SOFT WATER MECHANIC): Continue supplemental oxygen for saturations 90% I have advised her to get a home pulse oximeter and bring it to her next visit for comparison She has a visit with our veneer jointer helper upcoming and will likely have an echocardiogram. I have asked her to have this faxed over to our office for review as well Diabetic peripheral neuropat hy associated with type 2 diabetes mellitus ([facility]) 08/07/2023 Assessment & Plan (08/07/2023 4:05 PM [...] (01/03/2022): Added automatically from request for surgery [id number] Smoking 12/14/2021 Assessment & Plan (12/19/2021 11:55 [...] months Assessment & Plan (01/14/2022 11:03 AM SOFT WATER MECHANIC): - Pt has completed 4 weeks of [...] Broad spectrum IV abx, started IV Unasyn (12/13-); antifungal micafungin (12/19-). Plastics consulted in ED. [...] tract. If no surgical plan, Resume diet. Editorial Manager re supplements. Pain control with prn tylenol [...] disease) Assessment & Plan (02/13/2024 11:59 AM SOFT WATER MECHANIC): Continue Symbicort twice daily Continue Spiriva twice [...] 12/13/2021 Assessment & Plan (02/13/2024 11:57 AM SOFT WATER MECHANIC): Continue PAP with all sleep She is aware of the risks of uncorrected sleep apnea Assessment & Plan (12/21/2021 12:03 PM CDT): Exacerbated by BMI 42. Alert, oriented. Outpatient PSG Assessment & Plan (12/13/2021 11:24 AM CDT): Exacerbated by BMI 42. Alert, oriented. Morbid obesity with BMI of 40.0-44.9, adult 11/27 Assessment & Plan (12/14/2021 3:10 PM CDT): BMI 42.07, 104.3kg this admit. Editorial Manager to see intermodal customer service weight loss management goals with PCP, hx DM, HTN, ELIOT & may benefit from bariatric evaluation. Assessment & Plan (12/13/2021 10:25 AM CDT): BMI 42.07, 104.3kg this admit. Editorial Manager to see [employer]modal customer service weight loss management goals with PCP, hx DM, HTN, ELIOT & may benefit from bariatric evaluation. Pancreatic cyst 01/10/2020 Overview (01/10/2020): Added automatically from request for surgery [id number] Encounters Date Type Department Care Team Description 03/25/2024 12:27 PM SOFT WATER MECHANIC - 03/25/2024 11:59 PM SOFT WATER MECHANIC Hospital Encounter [facility] [address] [place] [address] Nicotine dependence, cigarettes, uncomplicated Discharge Disposition: Discharge to home or self care 03/22/2024 Telephone [facility] [address] [place] [address] Jany Marina RN 02/12/2024 3:00 PM SOFT WATER MECHANIC Office Visit [facility] [place] [address] [place] [address] Jany Hernandez, BEVERLY Centrilobular emphysema (HCC) (Primary Dx); Chronic respiratory failure with hypoxia, on home O2 therapy (CMS/HCC) (HCC); ELIOT (obstructive sleep apnea); Nicotine dependence, cigarettes, in remission from Last 3 Months Immunizations Name Administration Dates Next Due Influenza, Quadrivalent, Spl it, Preservative Free, Intramuscular 12/28/2022 Pfizer Sars-Cov-2 Bivalent Vaccination (12+ YRS) 03/02/2022 Surgical History Surgery Date Site/Laterality Comments SECTION 1984, 1988 TOTAL ABDOMINAL HYSTERECTOMY W/ BILATERAL SALPINGOOPHORECTOMY 02/27/1995 - 02/27/1996 AT [facility]T INSERTION 02/27/2010 - 02/26/2011 COLONOSCOPY BRAIN SURGERY Medical History Medical History Date Comments GERD (gastroesophageal reflux disease) Hypertension Hyperlipidemia Type 2 diabetes mellitus (HCC) Sleep apnea Dysphagia Asthma COPD (chronic obstructive pulmonary disease) (HC C) Stroke (HCC) Anemia Anxiety Arthritis Osteoporosis Depression Migraines Heart disease Family History Medical History Relation Name Comments Diabetes type II Father Elsa Hines Heart disease Father Elsa Hines Hypertension Father Elsa Hines Stroke Father Elsa Hines Hypertension Maternal Grandmother Sreekanth nascimento Osteoporosis Maternal Grandmother Sreekanth nascimento Heart disease Mother Sreekanth hebert Hypertension Mother Sreekanth hebert Stroke Mother Sreekanth hebert Stroke Mother's Sister Faviola hebert Diabetes type II Son diabetes ii Son Broken bones Neg Hx Hip fracture Neg Hx Kyphosis Neg Hx Scoliosis Neg Hx Relation Name Status Comments Father Elsa Hines Alive Maternal Grandmother Sreekanth nascimento Alive Mother Sreekanth hebert Mother's Sister Faviola hebert Son Alive Social History Tobacco Use Types Packs/Day Years [...] often do you attend chur ch or hinduism services? Never 12/22/2021 Do you belong to any clubs o r organizations such as caodaism groups, unions, fraternal or athletic groups, or [...] place to sleep or slept in a snf (including now)? No 12/22/2021 Personal Safety Answer Date Recorded Getting School Help Needed Denies 02/11 Comments No Sex and Gender Information Value Date Recorded Sex Assigned at Not on file Legal Sex Female 1:34 AM SOFT WATER MECHANIC Gender Identity Not on file Sexual Orientation Not on file Obstetrics History Last Filed Vital Signs Vital Sign Reading Time Taken Comments Blood Pressure 96/63 02/12/2024 2:42 PM SOFT WATER MECHANIC Pulse 86 02/12/2024 2:42 PM SOFT WATER MECHANIC Temperature 36.1 ??C (96.9 ??F) 02/12/2024 2:42 PM CS T Respiratory Rate 18 02/12/2024 2:42 PM SOFT WATER MECHANIC Oxygen Saturation 92% 02/12/2024 2:42 PM SOFT WATER MECHANIC Inhaled Oxygen Concentration - - Weight 85.3 kg (188 lb) 03/25/2024 12:44 PM SOFT WATER MECHANIC Height 162.6 cm (5' 4 ) 03/25/2024 12:44 PM SOFT WATER MECHANIC Body Mass Index 32.27 03/25/2024 12:44 PM SOFT WATER MECHANIC Plan of Treatment Health Maintenance Due Date Last Done Comments Albumin Creatinine Ratio, Urine 1965 Breast Cancer Screening-Mammogram 1965 Colon Cancer Screening-Colonoscopy 1965 Dilated Eye Exam 1965 Foot Exam 1965 Pneumococcal vaccine <65 (1 of 2 - PCV) 1971 Hepatitis B Screening 1983 Regular Well Visit/Exam 18-64 1983 Zoster Vaccine (1 of 2) 2015 Depression Screening 12/12/2022 12/12/2021 Lipid Panel 02/15/2023 02/15/2022, 2022 Covid-19 Vaccine (5 - 2023-2 5 season) 2023 03/02/2022, 10/11/2021, 08/26/2020, Additional history exists Influenza Vaccine (#1) 2023 , 01/10/2022, 03/05/2021 Hemoglobin A1C 02/06/2024 08/07/2023, 03/31, 12/13/2021, Additional history exists eGFR 08/02/2024 08/03/2023, 06/28, 12/28/2022, Additional history exists Lung Cancer Screening 09/21/2024 03/25/2024 DTaP/Tdap/Td Vaccine (2 - Td or Tdap) 12/16/2029 12/17/2019 Hepatitis C Screening Completed 12/15/2021 Medical Devices Implanted Type Area Floor And Wall Applier Liquid Device Identifier Shelf Expiration Date Model / Serial / Lot Shunt Implanted:Qty: 2 Shunt Brain Synovis Medocityian Wirt Microvascular 3.5mm Ring Pin Protective Cover Jaw Assembly Latex Free [id number] - [id number] Implanted:Qty: 1 on 2022 by Ricci Shelton MD at [facility] Mandible Synovis [id number] Mari [id number] 04/12/2026 [id number] / / [id number] Sebastian Craniomaxillofaci al 2mm Primary Reconstruction Customize Mandible Bebeto Plate Bone [id number] - [id number] Implanted:Qty: 1 on 2022 by Ricci Shelton MD at [facility] Mandible Álvaro Craniomaxillofacial [id number] / / Álvaro Craniomaxillofaci al Leibinger Myton 2 2.3mm 6mm Lock Cross Pin Maxillofacial [id number] - [id number] Implanted:Qty: 1 on 2022 by Ricci Shelton MD at [facility] Mandible Álvaro Craniomaxillofacial [id number] / / Sebastian Craniomaxillofaci al Leibinger Myton 2 2.3mm 8mm Lock Cross Pin Maxillofacial [id number] - [id number] Implanted:Qty: 2 on 2022 by Ricci Shelton MD at [facility] Mandible Sebastian Craniomaxillofacial [id number] / / Álvaro Craniomaxillofaci al Leibinger Myton 2 2.3mm 12mm Lock Cross Pin Maxillofacial [id number] - [id number] Implanted:Qty: 3 on 2022 by Ricci Shelton MD at [facility] Mandible Álvaro Craniomaxillofacial [id number] / / Álvaro Craniomaxillofaci al Leibinger Myton 2 2mm 6mm Self Tap Cross Pin Maxillofacial 50 - [id number] Implanted:Qty: 4 on 2022 by Ricci Shelton MD at [facility] Mandible Álvaro Craniomaxillofacial 50 / / Álvaro Craniomaxillofaci al Leibinger Myton 2 2mm 6mm Lock Cross Pin Maxillofacial Screw 50 - [id number] Implanted:Qty: 1 on 2022 by Ricci Shelton MD at [facility] Mandible Sebastian Craniomaxillofacial 50 / / Explanted Type Area Floor And Wall Applier Liquid Device Identifier Shelf Expiration Date Model / Serial / Lot Álvaro Craniomaxillofaci al Leibinger Myton 2 2mm 8mm Self Tap Cross Pin Maxillofacial 50 - [id number] Explanted:Qty: 4 on 2022 at [facility] Mandible Álvaro Craniomaxillofacial [id number] / / Álvaro Craniomaxillofaci al Leibinger Myton 2 2.3mm 8mm Self Tap Cross Pin Maxillofacial [id number] - [id number] Explanted:Qty: 1 on 2022 at [facility] Mandible Sebastian Craniomaxillofacial [id number] / / [employer] Probe Doppler 17.4cm Standard Cuff Implantable 20mhz Latex Free Sterile Microvascular Anastomoses Carmen [id number] - [id number] Implanted:Qty: 1 on 2022 by Ricci Shelton MD at [facility] Explanted:Qty: 1 on 02/14/2022 by Marie Parr PA Right: Neck [employer] [id number] 10/27/2024 [id number] / / [id number] Procedures Procedure Name Priority Date/Time Associated Diagnosis Comments CT LUNG CANCER SCREENING Schedule Routine, Read Routine (OP Routine) 03/25/2024 12:46 PM SOFT WATER MECHANIC Nicotine dependence, cigarettes, uncomplicated POCT HEMOGLOBIN A1C Routine 08/07/2023 3:17 PM CDT Type 2 diabetes mellitus with hyperglycemia, without long-term current use of insulin (CMS/HCC) (HCC) EGFR Routine 08/03/2023 1:59 PM CDT Osteoporosis, unspecified osteoporosis type, unspecified pathological fracture presence LIPID PANEL STAT 02/15/2022 2:00 PM SOFT WATER MECHANIC HEPATITIS PANEL, ACUTE Routine 12/15/2021 11:19 PM CDT from Last 3 Months or Most Recently Relevant to Health Maintenance Results * CT Lung Cancer Screening (03/25/2024 12:46 PM SOFT WATER MECHANIC) Anatomical Region Laterality Modality Chest N/A Computed Tomogra phy 03/26/2024 9:54 AM SOFT WATER MECHANIC Narrative 03/26/2024 10:03 AM SOFT WATER MECHANIC EXAM DESCRIPTION: ?? CT LUNG CANCER SCREENING [...] AM T: ??03/26/2024 10:03 AM Report ID: [id number] Reading Location: ??[id number] Procedure Note Almita Miller, DO - 03/26/2024 [...] Almita Miller D.O. PS: PS Report ID: [id number] Reading Location: [place] [address] Ethan Leung MD IMG CT PROCEDURES Final [...] MD LAB BLOOD ORDERABLES Final Resu lt [facility] Department [place] [address] * (ABNORMAL) Lipid panel (02/15/2022 2:00 PM SOFT WATER MECHANIC) Cholesterol 161 30 - 199 mg/dL [facility] [...] on 2017. HDL 42 >=40 mg/dL [facility] Comment: Interpretive Data Ages < or [...] 2017. LDL, calculated 68 <=129 mg/dL [facility] Comment: Interpretive Data Ages < or [...] revised on 2017. Non-HDL Cholesterol 119 mg/dL [facility] Comment: Interpretive Data Ages < or [...] last revised on 2017. Chol/HDL ratio 4 [facility] Blood 02/15/2022 2:00 PM SOFT WATER MECHANIC 02/15/2022 5:52 PM SOFT WATER MECHANIC Neri Loco MD LAB BLOOD ORDERABLES Fi nal Result [facility] Department [place] [address] * Hepatitis panel, acute (12/15/2021 11:19 PM CDT) Hep A IgM Nonreactive Nonreactive Comment: Interpretive Data: If Hep A IgM Ab is reported as Equivocal, a new sample should be drawn in two weeks for testing. Current interpretive data was last revised on 19. Hep B core IgM Nonreactive Nonreactive [facility] Comment: Interpretive Data If HepB Core IgM Ab is reported as Equivocal, a new sample should be drawn in two weeks for testing. Current interpretive data was last revised on 19. Hep C Ab Nonreactive Nonreactive [facility] Comment:Antibodies to HCV no t detected. Does NOT exclude the possibility of recent exposure to HCV. HepBsAg Nonreactive Nonreactive [facility] Blood 12/15/2021 11:1 9 PM CDT 12/16/2021 12:30 AM CDT us Orly Fine MD LAB MICROBIOLOGY - GENERAL O RDERABLES Edited Result - Final [facility] Department [place] [address] from Last 3 Months or Most Recently Relevant to Health Maintenance Additional Health Concerns Infection Onset Date Last Indicated MDR gram neg/ESBL 2022 2022 Insurance Advance Directives For more information, please contact: [phone] * Full Code (Latest Code Status on File) Date Activated Date Inactivated Comments 04/26/2022 9:48 PM 05/03/2022 6:39 PM * Full Code Date Activated Date Inactivated Comments 2022 9:27 PM 02/14/2022 9:56 PM * Full Code Date Activated Date Inactivated Comments 12/13/2021 5:40 PM 12/21/2021 6:14 PM * Full Code Date Activated Date Inactivated Comments 01/22/2020 1:18 PM 01/22/2020 10:15 PM Care Teams Universal Grinder Operator Relationship Specialty Start Date End Date Jorge Luis Hill MD PCP - General 04/30/18
--- OUTSIDE RECORDS SUMMARY | 2024-03-27 03:33 | XMS_ITS | Continuity of Care Document ---
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 Name Role Phone Eleno Valenzuela MD Unavailable Unavailable Allergies, Adverse Reactions, Alerts Substance Reaction Status Criticality No Known Allergies Active No Inform ation Medications Medication Instructions Dosage Effective Dates (start - stop) Status Comments Percocet 10 mg-325 mg tablet take 1 tablet by oral route 3 times every day as needed 1 tablet - Active avoid drivin gor operate machines lovastatin 20 mg tablet take 1 tablet (20MG) by oral route every day with the evening meal 20 MG - Active Xanax 1 mg tablet one tab po BID - Act fuentes avoid drivign or operate machines, for 3 months supply Nuvigil 150 mg tablet take 1 tablet (150MG) by oral route every day in the morning 150 MG - Active trazodone 50 mg tablet take 1 tablet (50MG) by oral route every bedtime after meals 50 MG - Active Nexium 40 mg capsule,delayed release take 1 capsule (40MG) by oral route every day 40 MG - Active Singulair 10 mg tablet take 1 tablet (10MG) by oral route every day in the evening 10 MG - Active Zoloft 100 mg tablet take 2 Tablet (200MG) by oral route every day 200 MG - Active Coreg 12.5 mg tablet take 1 tablet (12.5MG) by oral route 2 times every day with food 12.5 MG - Active potassium chloride ER 20 mEq tablet,extended release(part/debbie t) take 1 tablet (20MEQ) by oral route every day with food 20 MEQ - Active Advair Diskus 250 mcg-50 mcg/dose for Inhalation inhale 1 puff by inhalation route 2 times every day in the morning and evening approximately 12 hours apart 1.00 puff - Active ProAir HFA 90 mcg/actuation Aerosol Inhaler inhale 2 puff by inhalation route every 4 - 6 hours as needed - Active Robaxin-750 750 mg tablet take 1 tablet (750MG) by oral route every 6 hours as needed 750 MG - Active avoid driving or operate machines, PRN for pain meclizine 25 mg tablet take 1 tablet (25MG) by oral route 3 times every day as needed 25 MG - Active Mirapex 0.5 mg tablet take 1 tablet (0.5MG) by oral route every bedtime 0.5 MG - Active DuoNeb 0.5 mg-3 mg(2.5 mg base)/3 mL Neb Solution inhale 3 milliliter by nebulization route 4 times every day - Active metformin ER 750 mg tablet,extended release 24 hr take 1 tablet (750MG) by oral route every day with the evening meal 750 MG - Active Lasix 40 mg tablet take 1 tablet (40MG) by oral route 2 times every day 40 MG - Active Imitrex 100 mg tablet take 1 tablet (100MG) by oral route 100 MG - Active take one at onset of headache, may repeat x one in two hours, max 2/24 hours losartan 100 mg tablet take 1 tablet (100MG) by oral route every day 100 MG - Active Atrovent HFA 17 mcg/actuation Aerosol Inhaler inhale 2 puff (34MCG) by inhalation route 4 times every day 34 MCG - Active Procedures Procedure Date PREV VISIT, EST, AGE 40-64 OFFICE/OUTPATIENT VISIT, EST OFFICE/OUTPATIENT VISIT, EST OFFICE/OUTPATIENT VISIT, EST OFFICE/OUTPATIENT VISIT, EST OFFICE/OUTPATIENT VISIT, EST OFFICE/OUTPATIENT VISIT, EST OFFICE/OUTPATIENT VISIT, EST OFFICE/OUTPATIENT VISIT, EST OFFICE/OUTPATIENT VISIT, EST OFFICE/OUTPATIENT VISIT, EST OFFICE/OUTPATIENT VISIT, EST OFFICE/OUTPATIENT VISIT, EST OFFICE/OUTPATIENT VISIT, EST PREV VISIT, EST, AGE 40-64 OFFICE/OUTPATIENT VISIT, EST OFFICE/OUTPATIENT VISIT, EST OFFICE/OUTPATIENT VISIT, EST OFFICE/OUTPATIENT VISIT, EST OFFICE/OUTPATIENT VISIT, EST OFFICE/OUTPATIENT VISIT, EST OFFICE/OUTPATIENT VISIT, EST FLU VACCINE, 3 YRS & >, IM 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, [address], [place], [address], tel:[phone] [facility] No Information 4 Nicolas Smith [address], [place], [address] , [place]. tel:[phone] Referring Provider: Lala Higgins, [place], [place], [address]. tel:[phone] PREV VISIT, EST, AGE 40-64 [facility], [address] [place], [place], [address], tel:[phone] [facility] PHysical (chief complaint) Routine Medical ExamHypertension, UnspecifiedGenera lized anxiety disorderHeadacheR outine Medical Exam 0 4 Nicolas Smith [address] [facility] [place], [place], [address] , [place]. tel:[phone] Referring Provider: Lala Higgins [address], [place], [place], [address]. tel:[phone] OFFICE/OUTPA TIENT VISIT, [facility], [address], [place], [place], [address], [place] tel:[phone] [facility] back pain (chief complaint)HT N (chief complaint)HL P (chief complaint)[place] PD (chief complaint) Dietary surveillance and counselingCOPDLum bagoHypertension, UnspecifiedOther and unspecified hyperlipidemia 4 Nicolas Johansen. [address], [place], [place], [address] , [place]. tel:[phone] Referring Provider: Lala Higgins [address], [place], [place], [address]. tel:[phone] OFFICE/OUTPA TIENT VISIT, [facility], [address], [place], [place], [address], [place] tel:[phone] [facility] back pain (chief complaint)HT N (chief complaint)HL P (chief complaint)an xiety (chief complaint) Dietary surveillance and counselingHypoten tanja, UnspecifiedOther and unspecified hyperlipidemiaGen eralized anxiety disorderLumbago 4 Nicolas Smith [address], [place], [address] , [place]. [phone] Referring Provider: Lala Higgins [address], [place], [address]. tel:[phone] OFFICE/OUTPA TIENT VISIT, [facility], [address], [place], [place], [address], [place] tel:[phone] [facility] hypotension (chief complaint)ba ck pain (chief complaint)fa tigue (chief complaint)easton nd fx (chief complaint) Dietary surveillance and counselingHypoten tanja, UnspecifiedLumbag oFatigue / MalaiseClosed fracture of base of other metacarpal bone(s) 4 Nicolas Johansen. [address], [place], [address] , [place]. tel:[phone] Referring Provider: [address], [place], [address]. tel:[phone] OFFICE/OUTPA TIENT VISIT, [facility], [address], [place], [address], [place] tel:[phone] [facility] back pain (chief complaint)so re throat (chief complaint)easton nd pain (chief complaint) Dietary surveillance and counselingPain in joint involving handLumbagoThroat pain 4 Nicolas Smith [address], [place], [place], [address] , [place]. tel:[phone] Referring Provider: Lala Higgins [address], [place], [address]. tel:[phone] OFFICE/OUTPA TIENT VISIT, [facility], [address], [place], [address], [place] tel:[phone] [facility] depression (chief complaint)[place] PD (chief complaint)ba ck pain (chief complaint) Dietary surveillance and counselingLumbago COPDHypertension, UnspecifiedRESTLE SS LEGS SYNDROME 4 Nicolas Smith [address], [place], [place], [address] , [place]. tel:[phone] Referring Provider: Lala Higgins [address], [place], [address]. tel:[phone] OFFICE/OUTPA TIENT VISIT, [facility], [address], [place], [address], [place] tel:[phone] [facility] anxiety (chief complaint)ba ck pain (chief complaint)UT I (chief complaint)[place] (chief complaint) Dietary surveillance and counselingUrinary Tract InfectionGenerali zed anxiety disorderLumbagoCO PD 4 Nicolas Smith [address], [place], [address] , [place]. tel:[phone] Referring Provider: Eleno Valenzuela, [address], [place], [place], [address]. tel:[phone] OFFICE/OUTPA TIENT VISIT, [facility], [address], [place], [address], [place] tel:[phone] [facility] back pain (chief complaint)sw eet smell in urine (chief complaint)HT N (chief complaint)in somnia (chief complaint) Dietary surveillance and counselingLumbago Metabolic SyndromeHypertens ion, UnspecifiedInsomn ia, Other 3 Nicolas Johansen. [address], [place], [address] , [place]. [phone] Referring Provider: Eleno Valenzuela, [address], [place], [place], [address]. tel:[phone] OFFICE/OUTPA TIENT VISIT, [facility], [address], [place], [address], [place] tel:[phone] [facility] back pain (chief complaint)an xiety (chief complaint)fa tigue (chief complaint) Dietary surveillance and counselingLumbago Generalized anxiety disorderFatigue / Malaise 3 Nicolas Johansen. [address], [place], [place], [address] , [place]. tel:[phone] Referring Provider: Lala Higgins [address], [place], [address]. tel:[phone] OFFICE/OUTPA TIENT VISIT, [facility], [address], [place], [address], [place] tel:[phone] [facility] HTN (chief complaint)ba ck pain (chief complaint)an xiety (chief complaint) Dietary surveillance and counselingHyperte nsion, UnspecifiedLumbag oGeneralized anxiety disorder 3 Nicolas Johansen. [address], [place], [address] , [place]. tel:[phone] Referring Provider: Eleno Valenzuela, [address], [place], [place], [address]. tel:[phone] OFFICE/OUTPA TIENT VISIT, [facility], [address], [place], [place], [address], tel:[phone] [facility] back pain (chief complaint)an xiety (chief complaint)HT N (chief complaint)[place] (chief complaint) Dietary surveillance and counselingLumbago Hypertension, UnspecifiedGenera lized anxiety disorderCOPD 3 Nicolas Johansen. [address], [place], [address] , [place]. [phone] Referring Provider: Eleno Valenzuela, [address], [place], [place], [address]. tel:[phone] OFFICE/OUTPA TIENT VISIT, [facility], [address], [place], [place], [address], [place] tel:[phone] [facility] otalgaia (chief complaint)ba ck pain (chief complaint)an xiety (chief complaint)HT N (chief complaint)sl eep apnea (chief complaint) Dietary surveillance and counselingOther acute otitis externaHypertensi on, UnspecifiedGenera lized anxiety disorderSleep Apnea 3 Nicolas Johansen. [address], [place], [address] , [place]. [phone] Referring Provider: Eleno Valenzuela, [address], [place], [address]. tel:[phone] OFFICE/OUTPA TIENT VISIT, [facility], [address], [place], [place], [address], [place] tel:[phone] [facility] lumbago (chief complaint)pr eDM (chief complaint)HL P (chief complaint)an xiety (chief complaint)fa tigue (chief complaint) Dietary surveillance and counselingSleep ApneaLumbagoMetab olic SyndromeOther and unspecified hyperlipidemia 3 Nicolas Johansen. [address], [place], [address] , [place]. tel:[phone] Referring Provider: Lala Higgins [address], [place], [address]. tel:[phone] PREV VISIT, EST, AGE 40-64 [facility], [address], [place], [address], [place] tel:[phone] [facility] Physical (chief complaint) Routine Medical ExamDietary surveillance and counselingLumbago Routine Medical Exam 3 Nicolas Johansen. [address], [place], [place], [address] , [place]. tel:[phone] Referring Provider: Eleno Valenzuela, [address], [place], [address]. tel:[phone] OFFICE/OUTPA TIENT VISIT, [facility], [address], [place], [place], [address], [place] tel:[phone] [facility] back pain (chief complaint)ri ght side swelling (chief complaint) Dietary surveillance and counselingLumbago Enlargement of lymph nodesViral Infection, Unspecified 3 Nicolas Johansen. [address], [place], [address] , [place]. tel:[phone] Referring Provider: Lala Higgins [address], [place], [address]. tel:[phone] OFFICE/OUTPA TIENT VISIT, [facility], [address], [place], [address], [place] tel:[phone] [facility] COPD (chief complaint)GE RD (chief complaint)De pression (chief complaint)it saw (chief complaint) Dietary surveillance and counselingLumbago Hypertension, UnspecifiedGenera lized anxiety disorderCOPD 3 Nicolas Johansen. [address], [place], [address] , [place]. tel:[phone] Referring Provider: Lala Higgins [address], [place], [address]. tel:[phone] OFFICE/OUTPA TIENT VISIT, [facility], [address], [place], [address], [place] tel:[phone] [facility] back pain (chief complaint)an xiety (chief complaint)El bow pain (chief complaint) LumbagoGeneralize d anxiety disorderDietary surveillance and counselingPain in joint involving upper arm 3 Nicolas Johansen. [address], [place], [address] , [place]. tel:[phone] Referring Provider: [address], [place], [address]. tel:[phone] OFFICE/OUTPA TIENT VISIT, [facility], [address], [place], [address], [place] tel:[phone] [facility] back pain (chief complaint)an xiety (chief complaint)di zziness (chief complaint) Dietary surveillance and counselingLumbago Generalized anxiety disorderDizziness Anal and rectal polyp 3 Nicolas Johansen. [address], [place], [address] , [place]. [phone] Referring Provider: [address], [place], [address]. tel:[phone] OFFICE/OUTPA TIENT VISIT, [facility], [address], [place], [place], [address], [place] tel:[phone] [facility] back pain (chief complaint)HL P (chief complaint)an xiety (chief complaint) Dietary surveillance and counselingHyperte nsion, UnspecifiedLumbag oGeneralized anxiety disorderOther and unspecified hyperlipidemia 3 Nicolas Johansen. [address], [place], [address] , [place]. [phone] Referring Provider: Lala Higgins [address], [place], [address]. tel:[phone] OFFICE/OUTPA TIENT VISIT, [facility], [address], [place], [address], [place] tel:[phone] [facility] back pain (chief complaint)HL P (chief complaint)an xiety (chief complaint) Dietary surveillance and counselingLumbago Generalized anxiety disorderOther and unspecified hyperlipidemiaHyp ertension, Unspecified 2 Nicolas Johansen. [address], [place], [address] , [place]. tel:[phone] Referring Provider: Eleno Valenzuela, [address], [place], [address]. tel:[phone] OFFICE/OUTPA TIENT VISIT, [facility], [address], [place], [address], [place] tel:[phone] [facility] back pain (chief complaint)an xiety (chief complaint)fa ll (chief complaint)HL P (chief complaint)he adache (chief complaint) Dietary surveillance and counselingOther and unspecified hyperlipidemiaHea dacheLumbagoGener alized anxiety disorderInfluenza Vaccine 2 Nicolas Johansen. [address], [place], [address] , [place]. tel:[phone] Referring Provider: Eleno Valenzuela [address], [place], [place], [address]. tel:[phone] OFFICE/OUTPA TIENT VISIT, [facility], [address], [place], [address], [place] tel:[phone] [facility] insomnia (chief complaint)ba ck pain (chief complaint)an xiety (chief complaint) Dietary surveillance and counselingHyperte nsion, UnspecifiedInsomn ia, OtherLumbagoCOPD 2 Nicolas Johansen. [address], [place], [address] , [place]. tel:[phone] Referring Provider: Lala Higgins [address], [place], [address]. tel:[phone] OFFICE/OUTPA TIENT VISIT, EST [facility], [address], [place], [address], [place] tel:[phone] [facility] back pain (chief complaint)di zziness (chief complaint)fa tigue (chief complaint)hy pertension (chief complaint) Dietary surveillance and counselingHeadach eMajor depressive affective disorder, single episode, mild degreeFatigue / MalaiseLumbagoDiz ziness 2 Nicolas Johansen. [address], [address] , [place]. tel:[phone] Family History Family Member Type Diagnosis Age At Onset Father Problem (finding) Hypertension Father Problem (finding) Alzheimer's Disease Father Problem (finding) Stroke Mother Problem (finding) Stroke Mother Problem (finding) Hypertension Immunizations Vaccine Date Status Comments Flu (split) (3 yrs or older) administered Source: New Immunization Record Payers Payer name Insurance type Covered constitution party ID Authoriza tion(s) No Information Social History Type Description Quantity Date Captured Comments Sex Female Smoking Status No Information Chief Complaint And Reason For Visit No Information Plan Of Treatment Date Type Action Status Goal Mammogram. Due on 3 due Goal Tobacco cessation counseling completed Goal Tobacco cessation counseling completed Goal Tobacco cessation counseling completed Goal Tobacco cessation counseling completed Goal Tobacco cessation counseling completed Goal Tobacco cessation counseling completed Goal Tobacco cessation counseling completed Goal Tobacco cessation counseling completed Goal Tobacco cessation counseling completed Goal Tobacco cessation counseling completed Goal Tobacco cessation counseling completed Goal Tobacco cessation counseling completed Goal Tobacco cessation counseling completed Goal Tobacco cessation counseling completed Goal Tobacco cessation counseling completed Goal Tobacco cessation counseling completed Goal Tobacco cessation counseling completed Goal Tobacco cessation counseling completed Goal Tobacco cessation counseling completed Goal Tobacco cessation counseling completed Referral Ordered: Plastic Surg ordered Referral Ordered: HAND XRAY, TWO VIEW Right ordered Referral Ordered: Referral: Plastic Surg. ordered Referral Ordered: Referral: Gastroentergy. Consult. ordered History Of Present Illness Encounter Date Complaint History Of Prese nt Illness No Information Instructions Date Instruction Additional Infor yamila Dietary counseling Related to Di etary surveillance counseling Decrease caloric intake Related to Dietary surveillance counseling Dietary counseling Related to Di etary surveillance counseling Decrease caloric intake Related to Dietary surveillance counseling Dietary counseling Related to Di etary surveillance counseling Decrease caloric intake Related to Dietary surveillance counseling Dietary counseling Related to Di etary surveillance counseling Decrease caloric intake Related to Dietary surveillance counseling Dietary counseling Related to Di etary surveillance counseling Decrease caloric intake Related to Dietary surveillance counseling Decrease caloric intake Related to Dietary surveillance counseling Dietary counseling Related to Di etary surveillance counseling Decrease caloric intake Related to Dietary surveillance counseling Dietary counseling Related to Di etary surveillance counseling Dietary counseling Related to Di etary surveillance counseling Decrease caloric intake Related to Dietary surveillance counseling Decrease caloric intake Related to Dietary surveillance counseling Dietary counseling Related to Di etary surveillance counseling Decrease caloric intake Related to Dietary surveillance counseling Dietary counseling Related to Di etary surveillance counseling Dietary counseling Related to Di etary surveillance counseling Decrease caloric intake Related to Dietary surveillance counseling Dietary counseling Related to Di etary surveillance counseling Decrease caloric intake Related to Dietary surveillance counseling Dietary counseling Related to Di etary surveillance counseling Decrease caloric intake Related to Dietary surveillance counseling Dietary counseling Related to Di etary surveillance counseling Decrease caloric intake Related to Dietary surveillance counseling Dietary counseling Related to Di etary surveillance counseling Decrease caloric intake Related to Dietary surveillance counseling Dietary counseling Related to Di etary surveillance counseling Decrease caloric intake Related to Dietary surveillance counseling Dietary counseling Related to Di etary surveillance counseling Decrease caloric intake Related to Dietary surveillance counseling Dietary counseling Related to Di etary surveillance counseling Decrease caloric intake Related to Dietary surveillance counseling Dietary counseling Related to Di etary surveillance counseling Decrease caloric intake Related to Dietary surveillance counseling Decrease caloric intake Related to Dietary surveillance counseling Dietary counseling Related to Di etary surveillance counseling Dietary counseling Related to Di etary surveillance counseling Decrease caloric intake Related to Dietary surveillance counseling Dietary counseling Related to Di etary surveillance counseling Decrease caloric intake Related to Dietary surveillance counseling Assessments Type Assessment Date No Information
--- OUTSIDE RECORDS SUMMARY | 2024-03-27 03:33 | XMS_ITS | Clinical Summary ---
Author Organization [facility] Address [address] [place] [address]. [place], [place] [address] [place] [address] Care Team Providers Care Claim Examiner Name Role Phone Jorge Luis Hill MD Primary Care Provider [phone] Allergies No known active allergies Medications rosuvastatin (CRESTOR) 10 MG tablet Take 10 mg by mouth daily. Active albuterol sulfate HFA 108 (90 Base) MCG/ACT inhaler Inhale 2 puffs into the lungs every 6 (six) hours as needed. Active albuterol (2.5 MG/3ML) 0.083% nebulizer solution albuterol sulfate 2.5 mg/3 mL (0.083 %) solution for nebulization U 3 ML VIA NEB TID PRN Active alendronate 70 MG tablet 2 Active amitriptyline 50 MG tablet 2 Active celecoxib 100 MG capsule celecoxib 100 mg capsule Active cloNIDine 0.1 MG tablet clonidine HCl 0.1 mg tablet Active dilTIAZem CD 360 MG CAPSULE SR 24 HR 24 hr capsule 2 Active vitamin D2, ergocalciferol , 11935 UNITS capsule 2 Active escitalopram 20 MG tablet 2 Active fluticasone-sa lmeterol 250-50 MCG/DOSE inhaler 2 Active furosemide 40 MG tablet furosemide 40 mg tablet 2 Active losartan 50 MG tablet losartan 50 mg tablet Active metFORMIN 1000 MG tablet 2 Active methocarbamol 500 MG tablet 2 Active metoclopramide 10 MG tablet metoclopramide 10 mg tablet Active montelukast 10 MG tablet montelukast 10 mg tablet TAKE 1 TABLET BY MOUTH EVERY DAY DIRECTED Active NARCAN 4 MG/0.1ML nasal spray 2 Active QUEtiapine 100 MG tablet 1 Active rOPINIRole 0.25 MG tablet ropinirole 0.25 mg tablet Active JANUVIA 50 MG tablet 2 Active tiZANidine 4 MG tablet 1 Active Social History Tobacco Use Types Packs/Day Years Used Date Smoking Tobacco: Every Day Cigarettes Smokeless Tobacco: Never Alcohol Use Standard Drinks/Week Comments Not Currently 0 (1 standard drink = 0.6 oz pur e alcohol) Comments No Sex and Gender Information Value Date Recorded Sex Assigned at Not on file Legal Sex Female 9:46 PM CDT Gender Identity Not on file Sexual Orientation Not on file Last Filed Vital Signs Vital Sign Reading Time Taken Comments Blood Pressure 106/76 05/05/2021 12:15 PM SURVEY OPERATIONS DIRECTOR Pulse 83 05/05/2021 12:15 PM SURVEY OPERATIONS DIRECTOR Temperature 36.1 ??C (96.9 ??F) 05/05/2021 11:[address] Respiratory Rate 14 05/05/2021 12:15 PM SURVEY OPERATIONS DIRECTOR Oxygen Saturation 94% 05/05/2021 12:15 PM SURVEY OPERATIONS DIRECTOR Inhaled Oxygen Concentration - - Weight 108.4 kg (239 lb) 05/05/2021 10:03 AM SURVEY OPERATIONS DIRECTOR Height 157.5 cm (5' 2 ) 05/05/2021 10:03 AM SURVEY OPERATIONS DIRECTOR Body Mass Index 43.71 05/05/2021 10:03 AM SURVEY OPERATIONS DIRECTOR Plan of Treatment Health Maintenance Due Date Last Done Comments Annual Physical 02/04/1968 Pneumococcal Vaccine: Pediatrics (0 to 5 Years) and At-Risk Patients (6 to 64 Years) (1 of 2 - PCV) 1971 Hepatitis C 1983 Mammogram Screening 2005 Zoster Vaccines (1 of 2) 2015 COVID-19 Vaccine (3 2023-2 5 season) 2023 08/26/2020, 08/05/2020 Influenza Adult (#1) 2023 03/05/2021 DTaP, Tdap and Td Vaccines ( 2 - Td or Tdap) 12/16/2029 12/17/2019 Colorectal Cancer Screening Colonoscopy (10 Years) 05/06/2031 05/05/2021, 05/05/2021 Meningococcal B Vaccine Aged Out No l onger eligible based on patient's age to complete this topic Meningococcal Vaccine Aged Out No destiny ginny eligible based on patient's age to complete this topic RSV Immunizations Under 20 Months Aged Out No longer eligible b ased on patient's age to complete this topic Procedures Procedure Name Priority Date/Time Associated Diagnosis Comments COLONOSCOPY Routine 05/05/2021 11:05 AM SURVEY OPERATIONS DIRECTOR from Last 3 Months or Most Recently Relevant to Health Maintenance Results * Colonoscopy (05/05/2021 11:05 AM SURVEY OPERATIONS DIRECTOR) Narrative Estuardo Wells MD - 05/05/2021 11:05 AM SURVEY OPERATIONS DIRECTOR Estuardo Wells MD ? 05/05/2021 12:05 PM ESTUARDO WELLS MD, FACG, FACP COLONOSCOPY 05/05/2021 The procedure of colonoscopy, ??its indications, ??alternatives of barium studies and risks including perforation, bleeding, infection, reaction to medication as well as the possible need for blood or surgery were discussed with the patient prior to the procedure. The patient voices understanding, agrees to proceed and provides informed consent. INDICATION: Personal history of adenomatous colon polyps. ?? POST-OP: Four polyps removed. SEDATION: Per Anesthesia PREP: Good. With the patient in the left lateral decubitus position, the Olympus [id number] ??colonoscope was introduced into the rectum and advanced easily to the Terminal Ileum. Careful inspection of the mucosa was made upon insertion and withdrawal of the endoscope. FINDINGS: Terminal ileum: distal 5 cm normal. Cecum, Transverse colon, Descending colon, Sigmoid colon and Rectum including retroflexion normal. Ascending colon: 1.0 cm x 3 and 8 mm x 1 sessile polyps removed with cold snare polypectomy without bleed. No masses, AVMs, colitis ??or diverticulosis seen. No complications, blood loss or implants. ASSESSMENT AND PLAN: A. Personal history of adenomatous colon polyps: - Colonoscopy 02-11-2019 with 12 polyps removed - Colonoscopy 05-05-2021 with four polyps removed - If no cancer repeat colonoscopy in three years B. Hepatic Steatosis: - Patient due for repeat imaging of the liver - Was scheduled for repeat CT of liver 04-14-2021 but was inpatient at [facility] - Will check to see if she had CT scan while inpatient Thank you for allowing me to care for your patient. She will follow-up with Dr. Hill as needed. Estuardo Wells M.D. Cc: Dr. Nithin Hill us Estuardo Wells MD GI PROCEDURE ORDERABLES Fin al Result from Last 3 Months or Most Recently Relevant to Health Maintenance Insurance [employer] Care Teams Claim Examiner Relationship Specialty Start Date End Date Jorge Luis Hill MD [address] [place] [id number] PCP - General FAMILY PRACTICE 11/25/19
--- OUTSIDE RECORDS SUMMARY | 2024-03-27 03:33 | XMS_ITS | Encounter Summary ---
Author Organization [facility] Address [address] [place] [address] Phone Care Team Providers Care Manager Club Name Role Phone Jorge Luis Hill MD Primary Care Provider [phone] Encounter Details Date Type Department Care Team (Late st Contact Info) Description 05/03/2022 Telephone [facility] [address] [place] [address] [address] [place] [address] Janette Holcomb RN Social History Tobacco Use Types Packs/Day Years [...] often do you attend chur ch or episcopalian services? Never 12/22/2021 Do you belong to any clubs o r organizations such as buddhist groups, unions, fraternal or athletic groups, or [...] place to sleep or slept in a halfway (including now)? No 12/22/2021 Comments No Sex and Gender Information Value Date Recorded Sex Assigned at Not on file Legal Sex Female 1:34 AM HEALTH SAFETY AND ENVIRONMENT MANAGER Gender Identity Not on file Sexual Orientation Not on file documented as of this encounter Plan of Treatment Not on file documented as of this encounter Visit Diagnoses Not on filedocumented in this encounter Additional Health Concerns Infection Onset Date Last Indicated Resolved Time MDR gram neg/ESBL 2022 2022 documented as of this encounter Care Teams Manager Club Relationship Specialty Start Date End Date Jorge Luis Hill MD PCP - General 04/30/18 documented as of this encounter
--- OUTSIDE RECORDS SUMMARY | 2024-03-27 03:34 | XMS_ITS | Encounter Summary ---
Author Organization [facility] Address [address] [place] [address] Care Team Providers Care Cafeteria Aide Name Role Phone Jorge Luis Hill MD Primary Care Provider Reason for Referral * MRI/CAT/PET Scan (Routine) - Closed Specialty Diagnoses / Procedures Referred By Contac t Referred To Contact Radiology Diagnoses Nicotine dependence, cigarettes, uncomplicated Procedures CT Lung Cancer Screening Ethan Leung MD [address] [place] [address] DR [address] [place] [address] Phone: tel: fax: [address] [phone] Referral ID Status Reason Start Date Expiration Date Visits Re quested Visits Authorized [id number] Closed 03/08/2024 03/08/2025 1 1 CAID PLAN COMPLIANCE DIRECTOR Reason for Visit * MRI/CAT/PET Scan (Routine) - Closed Specialty Diagnoses / Procedures Referred By Contac t Referred To Contact Radiology Diagnoses Nicotine dependence, cigarettes, uncomplicated Procedures CT Lung Cancer Screening Ethan Leung MD [address] [place] [address] [address] [place] [address] Phone: tel: fax: [address] [phone] Referral ID Status Reason Start Date Expiration Date Visits Re quested Visits Authorized [id number] Closed 03/08/2024 03/08/2025 1 1 Encounter Details Date Type Department Care Team (Latest Contact Info) Description 03/25/2024 12:27 PM MEDICAID PLAN COMPLIANCE DIRECTOR - 03/25/2024 11:59 PM MEDICAID PLAN COMPLIANCE DIRECTOR Hospital Encounter [facility] [address] [place] [address] Nicotine dependence, cigarettes, uncomplicated Discharge Disposition: Discharge to home or self care Social History Tobacco Use Types Packs/Day Years Used Date Smoking Tobacco: Every Day Cigarettes 1 48.7 Started: 02/27/1975; Last attempted to quit: 11/2023 Cigars Smokeless Tobacco: Never Comments:Formerly smoked 1.5 - [...] often do you attend chur ch or sikh services? Never 12/22/2021 Do you belong to any clubs o r organizations such as quaker groups, unions, fraternal or athletic groups, or [...] place to sleep or slept in a correction (including now)? No 12/22/2021 Personal Safety Answer Date Recorded Getting School Help Needed Denies 02/11 Comments No Sex and Gender Information Value Date Recorded Sex Assigned at Not on file Legal Sex Female 1:34 AM MEDICAID PLAN COMPLIANCE DIRECTOR Gender Identity Not on file Sexual Orientation Not on file documented as of this encounter Last Filed Vital Signs Vital Sign Reading Time Taken Comments Blood Pressure - - Pulse - - Temperature - - Respiratory Rate - - Oxygen Saturation - - Inhaled Oxygen Concentration - - Weight 85.3 kg (188 lb) 03/25/2024 12:44 PM MEDICAID PLAN COMPLIANCE DIRECTOR Height 162.6 cm (5' 4 ) 03/25/2024 12:44 PM MEDICAID PLAN COMPLIANCE DIRECTOR Body Mass Index 32.27 03/25/2024 12:44 PM MEDICAID PLAN COMPLIANCE DIRECTOR documented in this encounter Medications at Time of Discharge acetaminophen 500 mg capsuleIndications :Fever,Pain,1st line pain Take 2 capsules (1,000 mg total) by mouth every 6 (six) hours as needed for pain 120 tablet 12/20/2021 albuterol HFA (PROVENTIL HFA,VENTOLIN HFA,PROAIR HFA) 90 mcg/actuation inhaler Inhale 1 puff every 4 (four) hours as needed for wheezing 1 each 11 10/17/2023 amitriptyline (ELAVIL) 50 mg tablet 03/23/2022 aspirin 81 mg enteric coated tablet Take 1 tablet (81 mg total) by mouth every morning budesonide-formote roL (SYMBICORT) 160-4.5 mcg/actuation inhaler Inhale 2 puffs 2 (two) times a day Rinse mouth with water after use. Do not swallow. 1 each 11 10/17/2023 cholecalciferol (VITAMIN D-3) 23981 unit tablet Take 1 tablet (50,000 Units total) by mouth once a week 11/30/2017 cloNIDine (CATAPRES) 0.1 mg tablet Take 1 tablet (0.1 mg total) by mouth every 12 hours 02/21/2017 dicyclomine (BENTYL) 10 mg capsule Take 1 capsule (10 mg total) by mouth 4 (four) times a day diltiaZEM CD (CARDIZEM CD) 360 mg 24 hr capsule Take 1 capsule (360 mg total) by mouth daily 01/30/2022 Dodex 1,000 mcg/mL injection once a week 01/02/2022 escitalopram (LEXAPRO) 20 mg tablet Take 1 tablet (20 mg total) by mouth daily 01/19/2022 Farxiga 10 mg tablet Take 1 tablet (10 mg total) by mouth daily 90 tablet 2 08/07/2023 furosemide (LASIX) 40 mg tablet 12/28/2021 gabapentin (NEURONTIN) 300 mg capsule Take 1 capsule (300 mg total) by mouth 3 (three) times a day 90 capsule 11 08/07/2023 loratadine (CLARITIN) 10 mg tablet Take 1 tablet (10 mg total) by mouth daily 30 tablet 11 10/31/2023 losartan (COZAAR) 50 mg tablet Take 1 tablet (50 mg total) by mouth every morning 11/13/2017 metFORMIN (GLUCOPHAGE) 500 mg tablet Take 1 tablet (500 mg total) by mouth 2 (two) times a day with meals 180 tablet 2 08/07/2023 metoclopramide (REGLAN) 10 mg tabletIndications: nausea preventative Take 1 tablet (10 mg total) by mouth 3 (three) times a day before meals montelukast (SINGULAIR) 10 mg tablet Take 1 tablet (10 mg total) by mouth nightly 11/12/2019 naloxone (NARCAN) 4 mg/actuation spray,non-aerosol 03/18/2021 omeprazole (PriLOSEC) 40 mg capsule 03/17/2022 QUEtiapine (SEROquel) 50 mg tablet Take 1 tablet (50 mg total) by mouth nightly 01/01/2020 rOPINIRole (REQUIP) 0.25 mg tablet Take 1 tablet (0.25 mg total) by mouth nightly 01/03/2020 rOPINIRole (REQUIP) 0.5 mg tablet TAKE 1 TABLET BY MOUTH EVERY NIGHT AT BEDTIME WITH 1 MG TABLET *EMERGENCY REFILL* 06/23/2023 rosuvastatin (CRESTOR) 20 mg tablet Take 1 tablet (20 mg total) by mouth every morning 02/28/2018 sulfamethoxazole-t rimethoprim (BACTRIM DS) 800-160 mg per tablet TAKE ONE (1) TABLET BY MOUTH TWICE DAILY 60 tablet 10 02/22/2024 tiotropium bromide (SPIRIVA RESPIMAT) 2.5 mcg/actuation inhaler Inhale 2 puffs daily 1 each 11 10/17/2023 documented as of this encounter Discharge Disposition Disposition Code Departure Means Destination Discharge to home or self care documented in this encounter Plan of Treatment Not on file documented as of this encounter Procedures Procedure Name Priority Date/Time Associated Diagnosis Comments CT LUNG CANCER SCREENING Schedule Routine, Read Routine (OP Routine) 03/25/2024 12:46 PM MEDICAID PLAN COMPLIANCE DIRECTOR Nicotine dependence, cigarettes, uncomplicated documented in this encounter Results * CT Lung Cancer Screening (03/25/2024 12:46 PM MEDICAID PLAN COMPLIANCE DIRECTOR) Anatomical Region Laterality Modality Chest N/A Computed Tomogra phy 03/26/2024 9:54 AM MEDICAID PLAN COMPLIANCE DIRECTOR Narrative 03/26/2024 10:03 AM MEDICAID PLAN COMPLIANCE DIRECTOR EXAM DESCRIPTION: ?? CT LUNG CANCER SCREENING [...] AM T: ??03/26/2024 10:03 AM Report ID: [id number] Reading Location: ??[id number] Procedure Note Almita Miller, DO - 03/26/2024 [...] Almita Miller D.O. PS: PS Report ID: [id number] Reading Location: [place] [address] Ethan Leung MD IMG CT PROCEDURES Final Result documented in this encounter Visit Diagnoses Diagnosis Nicotine dependence, cigarettes, uncomplicated documented in this encounter Additional Health Concerns Infection Onset Date Last Indicated Resolved Time MDR gram neg/ESBL 2022 2022 documented as of this encounter Care Teams Cafeteria Aide Relationship Specialty Start Date End Date Jorge Luis Hill MD PCP - General 04/30/18 documented as of this encounter
--- OUTSIDE RECORDS SUMMARY | 2024-03-27 03:34 | XMS_ITS | Clinical Summary ---
Author Organization [facility] Address [address] [place] [address] Phone Care Team Providers Care Fire Prevention Forester Name Role Phone Jorge Luis Hill MD Primary Care Provider [phone] Allergies No known active allergies Medications Medication Sig Dispensed Refills Start Date End Date Status alendronate (FOSAMAX) 70 MG tablet Take 70 mg by mouth every 7 (seven) days. Take in the morning with a full glass of water, on an empty stomach, and do not take anything else by mouth or lie down for the next 30 min. Active esomeprazole (NexIUM) [address] capsule Take 40 mg by mouth 1 (one) time each day before breakfast. Active fluticasone-salmetero l (ADVAIR DISKUS) 500-50 MCG/DOSE diskus inhaler Inhale 1 puff 2 (two) times a day. Active oxybutynin XL (DITROPAN-XL) 5 MG 24 hr tablet Take 5 mg by mouth 1 (one) time each day. Active albuterol HFA (PROVENTIL HFA;VENTOLIN HFA) 108 (90 Base) MCG/ACT inhaler Inhale 2 puffs every 6 (six) hours if needed for wheezing. Active losartan (COZAAR) 50 MG tablet Take 50 mg by mouth 1 (one) time each day. Active metFORMIN XR (GLUCOPHAGE-XR) 750 MG 24 hr tablet Take 750 mg by mouth 1 (one) time each day with dinner. Active aspirin 81 MG tablet Take 81 mg by mouth 1 (one) time each day. Active sertraline (ZOLOFT) 100 MG tablet Take 100 mg by mouth 1 (one) time each day. Active carvedilol (COREG) 25 MG tablet Take 25 mg by mouth 2 (two) times a day with meals. Active montelukast (SINGULAIR) 10 MG tablet Take 10 mg by mouth every night. Active furosemide (LASIX) 40 MG tablet Take 40 mg by mouth 2 (two) times a day. Active simvastatin (ZOCOR) 40 MG tablet Take 40 mg by mouth every night. Active Active Problems Problem Noted Date Diagnosed Date Hypercalcemia 08/27/2018 Asthma 07/11/2018 Chronic obstructive pulmonary disease 07/11/2018 Obstructive sleep apnea 07/11/2018 Impaired glucose tolerance 07/11/2018 Family History Medical History Relation Comments Diabetes Father Hypertension Father Hypertension Mother Relation Status Comments Father Mother Social History Tobacco Use Types Packs/Day Years Used Date Smoking Tobacco: Every Day Cigarettes 1 38 Smokeless Tobacco: Never Alcohol Use Standard Drinks/Week Comments Yes 0 (1 standard drink = 0.6 oz pur e alcohol) occasionally Sex and Gender Information Value Date Recorded Sex Assigned at Not on file Gender Identity Not on file Sexual Orientation Not on file Last Filed Vital Signs Vital Sign Reading Time Taken Comments Blood Pressure 109/79 08/28/2018 11:11 AM CDT Pulse 81 08/28/2018 11:11 AM CDT Temperature - - Respiratory Rate - - Oxygen Saturation - - Inhaled Oxygen Concentration - - Weight 86.6 kg (191 lb) 08/28/2018 11:11 AM CDT Height 157.5 cm (5' 2 ) 08/28/2018 11:11 AM CDT Body Mass Index 34.93 08/28/2018 11:11 AM CDT Plan of Treatment Health Maintenance Due Date Last Done Comments Influenza Vaccine (#1) 2023 Care Teams Fire Prevention Forester Relationship Specialty Start Date End Date Jorge Luis Hill MD PCP - General Family Medicine 08/28/18
--- OUTSIDE RECORDS SUMMARY | 2024-03-27 03:34 | XMS_ITS | Referral Summary ---
Author Organization [facility] Address [address] [place] [address] Care Team Providers Care Thermometer Maker Name Role Phone Jorge Luis Hill MD Primary Care Provider [phone] Source Comments [facility],non-owned Affiliates and Associated Physician Practices is amultiple site organization consisting of ambulatory clinics and hospital sitesin [place], [place], [place] and [place]. This disclosure is being madepursuant to the Care Everywhere program and may not contain all information available regarding this patient. Last updated 17.[facility] Allergies No known active allergies Medications * [...] naloxone HCl (Narcan) 4 MG/0.1ML nasal spray [place] 40 (forty) sprays into the nose as [...] ML (IIV4) 12/28/2022,01/10/2022,03/05/2021 TDAP, HISTORIC VACCINE 12/17/2019 Social History Tobacco Use Types Packs/Day Years [...] Comments Blood Pressure 155/92 03/24/2023 2:17 PM COTTON PICKER OPERATOR Pulse 101 03/24/2023 2:17 PM COTTON PICKER OPERATOR Temperature 36.7 ??C (98 ??F) 03/24/2023 2:17 PM COTTON PICKER OPERATOR Respiratory Rate 18 03/24/2023 2:17 PM COTTON PICKER OPERATOR Oxygen Saturation 96% 03/24/2023 2:17 PM COTTON PICKER OPERATOR Inhaled Oxygen Concentration - - Weight 84.3 kg (185 lb 12.8 oz) 03/24/2023 2:17 PM COTTON PICKER OPERATOR Height 162.6 cm (5' 4 ) 03/24/2023 2:17 PM COTTON PICKER OPERATOR Body Mass Index 31.89 03/24/2023 2:17 PM COTTON PICKER OPERATOR Plan of Treatment Upcoming Encounters Date Type Department Care Team (Late st Contact Info) Description 05/31/2024 1:15 PM CDT Appointment [facility] [address] [place] [address] Bridger Qureshi, STERILE PREPARATION TECHNICIAN-COVERAGE SPECIALIST RN [address] [facility] [address] [place] [address] Care Teams Thermometer Maker Relationship Specialty Start Date End Date Jorge Luis Hill MD [address] [facility] [address] [place] [address] PCP - General 02/10/17
--- OUTSIDE RECORDS SUMMARY | 2024-03-27 03:34 | XMS_ITS | Clinical Summary ---
Author Organization [facility] Address [address] [place] [address] Care Team Providers Care Safety Equipment Testing Specialist Name Role Phone Jorge Luis Hill MD Primary Care Provider [phone] Medications PROAIR HFA 90 mcg/actuation inhaler INHALE 2 PUFFS PO Q 6 H PRN 0 03/13/19 19 Active alendronate (FOSAMAX) 70 mg tablet 0 04/11/19 19 Active simvastatin (ZOCOR) 40 mg tablet TK 1 T PO QHS 0 06/02/19 19 Active carvedilol (COREG) 25 mg tablet TK 1 T PO BID 5 02/28/19 19 Active dicyclomine (BENTYL) 10 mg capsule TK 1 C PO BID 3 06/02/19 19 Active furosemide (LASIX) 40 mg tablet as directed 06/10/19 18 Active losartan (COZAAR) 50 mg tablet TK 1 T PO QD 0 06/05/19 19 Active metFORMIN (GLUCOPHAGE XR) 750 mg Extended Release 24 hour tablet as directed 06/10/19 18 Active metoclopramide HCl (REGLAN) 10 mg tablet TK 1 T PO TID AC 3 06/02/19 19 Active montelukast (SINGULAIR) 10 mg tablet as directed 03/11/19 18 Active oxybutynin chloride (DITROPAN XL) 5 mg Extended Release 24 hour tablet TK 1 T PO QD 0 06/02/19 19 Active pantoprazole (PROTONIX) 40 mg Tablet, Delayed Release (E.C.) TK 1 T PO BID 3 05/09/19 19 Active rosuvastatin (CRESTOR) 20 mg tablet TK 1 T PO QD 5 02/28/19 19 Active sertraline (ZOLOFT) 100 mg tablet Take 100 mg by mouth daily. Active aspirin (ECOTRIN EC) 81 mg Tablet, Delayed Release (E.C.) every 24 hours. Active cloNIDine HCl (CATAPRES) 0.1 mg tablet clonidine HCl 0.1 mg tablet 02/22/20 17 Active fluticasone-umec lidinium-vilante rol (TRELEGY ELLIPTA) 100-62.5-25 mcg Disk with Device Trelegy Ellipta 100 mcg-62.5 mcg-25 mcg powder for inhalation USE 1 INHALATION DAILY DIRECTED (TO REPLACE ALL OTHER INHALERS EXCEPT RESCUE ALBUTEROL) Active pneumococcal conjugate vaccine PF, PCV13, (PREVNAR 13, PF,) 0.5 mL Syringe Prevnar 13 (PF) 0.5 mL intramuscular syringe ADM 0.5ML IM UTD Active rOPINIRole (REQUIP) 0.25 mg tablet TK 1 T PO QHS PRN 0 11/03/19 19 Active traZODone (DESYREL) 50 mg tablet trazodone 50 mg tablet Active varenicline (CHANTIX) 1 mg Tablet Chantix Continuing Month Box 1 mg tablet Take 1 tablet twice a day by oral route as directed for 30 days. Active albuterol (PROVENTIL,TORI MALOU) 2.5 mg /3 mL (0.083 %) Solution for Nebulization albuterol sulfate 2.5 mg/3 mL (0.083 %) solution for nebulization Active alendronate (FOSAMAX) 70 mg tablet alendronate 70 mg tablet Active carvedilol (COREG) 25 mg tablet carvedilol 25 mg tablet 02/22/20 17 Active dicyclomine (BENTYL) 10 mg capsule dicyclomine 10 mg capsule Active furosemide (LASIX) 40 mg tablet furosemide 40 mg tablet 06/10/19 18 Active losartan (COZAAR) 50 mg tablet losartan 50 mg tablet TK 1 T PO QD Active metFORMIN (GLUCOPHAGE XR) 750 mg Extended Release 24 hour tablet metformin ER 750 mg tablet,extended release 24 hr TK 1 T PO QPM WITH A MEAL 06/10/19 18 Active metoclopramide HCl (REGLAN) 10 mg tablet metoclopramide 10 mg tablet Active montelukast (SINGULAIR) 10 mg tablet montelukast 10 mg tablet TK 1 T PO QD 03/11/19 18 Active oxybutynin chloride (DITROPAN XL) 5 mg Extended Release 24 hour tablet oxybutynin chloride ER 5 mg tablet,extended release 24 hr Active pantoprazole (PROTONIX) 40 mg Tablet, Delayed Release (E.C.) pantoprazole 40 mg tablet,delayed release TK 1 T PO BID Active rosuvastatin (CRESTOR) 20 mg tablet rosuvastatin 20 mg tablet Active sertraline (ZOLOFT) 100 mg tablet sertraline 100 mg tablet Active simvastatin (ZOCOR) 40 mg tablet simvastatin 40 mg tablet TK 1 T PO QPM WITH A MEAL 05/30/19 18 Active sucralfate (CARAFATE) 1 gram tablet sucralfate 1 gram tablet TK 1 T PO AC Active Januvia 50 mg Tablet 08/09/19 22 Active QUEtiapine (SEROquel) 50 mg tablet 09/25/19 22 Active predniSONE (DELTASONE) 20 mg tablet 09/30/19 22 Active oxyCODONE-acetam inophen (PERCOCET) 5-325 mg tablet oxycodone-acetamin ophen 5 mg-325 mg tablet Active ondansetron (ZOFRAN) 4 mg Tablet ondansetron HCl 4 mg tablet Active omeprazole (PriLOSEC) 40 mg Capsule, Delayed Release(E.C.) 09/10/19 22 Active ofloxacin (FLOXIN) 0.3 % Drops ofloxacin 0.3 % ear drops Active naproxen (NAPROSYN) 375 mg tablet naproxen 375 mg tablet Active naloxone (Narcan) 4 mg/spray [place], Non-Aerosol Narcan 4 mg/actuation nasal spray 03/18/19 22 Active methocarbamoL (ROBAXIN) 500 mg tablet methocarbamol 500 mg tablet 04/09/19 22 Active loratadine (Claritin) 10 mg tablet every 24 hours. Acti ve ketorolac tromethamine (TORADOL) 10 mg tablet ketorolac 10 mg tablet Active ibuprofen (MOTRIN) 600 mg tablet ibuprofen 600 mg tablet Active hydrocortisone (CORTAID) 1 % Cream hydrocortisone 1 % topical cream OBI EXT AA BID Active HYDROcodone-acet aminophen (NORCO) 5-325 mg tablet hydrocodone 5 mg-acetaminophen 325 mg tablet 01/16/20 20 Active glimepiride (AMARYL) 2 mg tablet glimepiride 2 mg tablet Active ferrous sulfate 325 mg (65 mg iron) Tablet, Delayed Release (E.C.) 08/18/19 22 Active escitalopram oxalate (LEXAPRO) 10 mg tablet escitalopram 10 mg tablet Active ergocalciferol (VITAMIN D2) 50,000 unit capsule ergocalciferol (vitamin D2) 1,250 mcg (50,000 unit) capsule 04/09/19 Active diltiaZEM (TIAZAC) 360 mg Extended Release capsule diltiazem CD 360 mg capsule,extended release 24 hr 04/06/19 Active Farxiga 10 mg Tablet 10/19/19 Active cyanocobalamin (VITAMIN B-12) 1,000 mcg/mL Solution cyanocobalamin (vit B-12) 1,000 mcg/mL injection solution Active ciprofloxacin HCl (CIPRO) 500 mg tablet ciprofloxacin 500 mg tablet Active Cholecalciferol, Vitamin D3, (VITAMIN D3) 10 mcg (400 unit) capsule Rx: Vitamin D Active cetirizine (ZyrTEC) 10 mg tablet cetirizine 10 mg tablet Active celecoxib (CeleBREX) 100 mg capsule celecoxib 100 mg capsule 01/16/20 20 Active cefUROXime axetil (CEFTIN) 500 mg tablet cefuroxime axetil 500 mg tablet Active benzonatate (TESSALON) 200 mg capsule benzonatate 200 mg capsule Take 1 capsule 3 times a day by oral route as directed for 10 days. Active atorvastatin (LIPITOR) 20 mg tablet atorvastatin 20 mg tablet Active amitriptyline (ELAVIL) 50 mg tablet amitriptyline 50 mg tablet 01/19/20 Active cephALEXin (KEFLEX) 500 mg capsule cephalexin 500 mg capsule Strength: 500 mg 40 Capsule 12/11/19 Active budesonide-glyco pyr-formoterol 160-9-4.8 mcg/actuation HFA Aerosol Inhaler Inhale 2 puffs twice a day by inhalation route as directed for 30 days. 12/01/19 Active Active Problems Problem Noted Date Diagnosed Date Iron deficiency anemia 10/27/2021 Submental lymphadenopathy 10/27/2021 Duct ectasia, right 06/25/2018 Sign and symptom in breast 06/19/2018 Abnormal ultrasound of breast 06/19/2018 Abnormal mammogram of right breast 06/06/2018 Cigarette dependence 06/06/2018 Encounters Date Type Department Care Team Description 03/21/2024 External Device Data [facility] ABSTRACTION Provider, Abstract 03/12/2024 External Device Data [facility] ABSTRACTION Provider, Abstract 01/23/2024 External Device Data [facility] ABSTRACTION Provider, Abstract 01/02/2024 External Device Data [facility] ABSTRACTION Provider, Abstract from Last 3 Months Family History Medical History Relation Name Comments Heart Disease Brother Diabetes Father Heart Disease Father Breast Cancer Mother Diabetes Mother Relation Name Status Comments Brother Alive Father Alive Mother Sister 1 Sister 2 Sister 3 Sister 4 Social History Tobacco Use Types Packs/Day Years Used Date Smoking Tobacco: Every Day Cigarettes 1 30 Smokeless Tobacco: Never Alcohol Use Standard Drinks/Week Comments Yes 0 (1 standard drink = 0.6 oz pur e alcohol) Comments No Sex and Gender Information Value Date Recorded Sex Assigned at Not on file Legal Sex Female 9:49 AM CDT Gender Identity Not on file Sexual Orientation Not on file Last Filed Vital Signs Vital Sign Reading Time Taken Comments Blood Pressure 102/62 12/05/2022 3:27 PM CDT Pulse 95 12/05/2022 3:27 PM CDT Temperature 36.3 ??C (97.4 ??F) 12/05/2022 3:27 PM CD T Respiratory Rate 20 12/05/2022 3:27 PM CDT Oxygen Saturation 100% 12/05/2022 3:27 PM CDT Inhaled Oxygen Concentration - - Weight 83.9 kg (185 lb) 12/05/2022 3:27 PM CDT Height 157.5 cm (5' 2 ) 11/12/2021 11:38 AM CDT Body Mass Index 33.84 11/12/2021 11:38 AM CDT Plan of Treatment Health Maintenance Due Date Last Done Comments DIABETES ANNUAL FOOT EXAM 1983 DIABETES ANNUAL RETINAL EXAM 1983 DIABETES MICROALBUMIN ANNUAL SCREEN 1983 LDL CHOLESTEROL ANNUAL 1983 HEPATITIS B VACCINES (1 of 3 - 19+ 3-dose series) 02/04/1984 CERVICAL CANCER SCREENING 1995 FIT-DNA Q 3 years 2010 FIT/FOBT Q 1 year 2010 Flex Sig/CT Colonography Q 5 years 2010 Lung Cancer Screening 2015 ZOSTER VACCINE (1 of 2) 2015 BREAST CANCER SCREENING 11/15/2019 11/15/19 19, 05/14/2018, 04/23/2018 DIABETES HBA1C Q 6 MONTHS 10/16/2022 04/18/2022, INFLUENZA VACCINE (#1) 2023 , 01/10/2022, 03/05/2021 DTAP/TDAP/TD VACCINES (2 - T d or Tdap) 12/16/2029 12/17/2019 COLORECTAL SCREENING 05/06/2031 05/05/2021, 05/05/2021, 05/04/2021 Colorectal Cancer Screening 05/06/2031 Procedures Procedure Name Priority Date/Time Associated Diagnosis Comments MAMMO DIAG UNI RIGHT 3D MARILEE W OR WO CAD Routine 11/14/2018 Abnormal mammogram of right breast from Last 3 Months or Most Recently Relevant to Health Maintenance Results * MAMMO DIAG UNI RIGHT 3D MARILEE W OR WO CAD (11/14/2018) Anatomical Region Laterality Modality Breast Right Other Mallory Aldana DO MAMMO ORDERABLES Final Resu lt from Last 3 Months or Most Recently Relevant to Health Maintenance Insurance [employer] Care Teams Safety Equipment Testing Specialist Relationship Specialty Start Date End Date Jorge Luis Hill MD PCP - General Emergency Medicine 05/30/18
--- OUTSIDE RECORDS SUMMARY | 2024-03-27 03:34 | XMS_ITS | Patient Health Summary ---
Author Organization [facility] [employer] Address [address] [place] [address] Care Team Providers Care Peer Specialist Name Role Phone Jorge Luis Hill MD Primary Care Provider [phone] Note from [facility],non-owned Affiliates and Associated Physician Practices is amultiple site organization consisting of ambulatory clinics and hospital sitesin [place], [place], [place] and [place]. This disclosure is being madepursuant to the Care Everywhere program and may not contain all information available regarding this patient. Last updated 17.[facility] Allergies No known active allergies Medications * Be aware that medications may not be up to date on this document. Alwaysverify current medications with the patient. * carvedilol (COREG) 25 MG tablet(Started 02/21/2017) as directed * cloNIDine (CATAPRES) 0.1 MG tablet(Started 02/21/2017) as directed * furosemide (LASIX) 40 MG tablet(Started 06/09/2017) as directed * montelukast (SINGULAIR) 10 MG tablet(Started 03/11/2017) as directed * KLOR-CON 10 10 MEQ tablet(Started 02/21/2017) as directed * sertraline (ZOLOFT) 25 MG tablet(Started 05/29/2017) once daily Take 3 tablets by mouth Daily. * simvastatin (ZOCOR) 40 MG tablet(Started 05/29/2017) at bedtime Take 1 tablet nightly. * albuterol HFA (VENTOLIN HFA) 108 (90 Base) MCG/ACT inhaler Inhale 2 (two) puffs by mouth every 6 hours as needed * albuterol HFA (PROAIR HFA) 108 (90 Base) MCG/ACT inhaler Inhale 2 (two) puffs by mouth every 6 hours as needed * alendronate (FOSAMAX) 70 MG tablet Take 70 mg by mouth every 7 days before meal Take in morning with full glass of water on empty stomach and remain upright for 30 min * losartan (COZAAR) 50 MG tablet Take 1 (one) tablet by mouth once daily * pantoprazole EC (PROTONIX) 40 MG tablet Take 1 (one) tablet by mouth once daily * metoclopramide (REGLAN) 10 MG tablet Take 1 (one) tablet by mouth 3 times daily before meals * amitriptyline (Elavil) 50 MG tablet(Started 03/08/2023) Take 1 (one) tablet by mouth at bedtime * aspirin EC (Ecotrin) 81 MG tablet Take 1 (one) tablet by mouth every morning * ljsnoop-xypotwabstb-btztwpzrll (Breztri Aerosphere) 160-9-4.8 MCG/ACT inhaler (Started 11/30/2022) Inhale 2 (two) puffs by mouth 2 times daily * vitamin D3 (Cholecalciferol) 10 MCG (400 UNIT) capsule Take 1 (one) capsule by mouth every 7 days * Cyanocobalamin (Dodex) 1000 MCG/ML SOLN(Started 01/02/2022) Inject 1,000 (one thousand) mcg subcutaneously as directed * dicyclomine (Bentyl) 20 MG tablet(Started 03/08/2023) Take 1 (one) tablet by mouth 4 times daily * escitalopram (Lexapro) 20 MG tablet(Started 03/08/2023) Take 1 (one) tablet by mouth as directed * loratadine (Claritin) 10 MG tablet(Started 03/28/2022) Take 1 (one) tablet by mouth once daily * metFORMIN (Glucophage) 1000 MG tablet Take 1 (one) tablet by mouth once daily * naloxone HCl (Narcan) 4 MG/0.1ML nasal spray(Started 05/19/2022) [place] 40 (forty) sprays into the nose as directed * omeprazole (PriLOSEC) 40 MG capsule(Started 03/08/2023) Take 1 (one) capsule by mouth once daily * QUEtiapine (SEROquel) 100 MG tablet(Started 03/10/2023) Take 1 (one) tablet by mouth every morning * QUEtiapine (SEROquel) 400 MG tablet(Started 03/08/2023) Take 1 (one) tablet by mouth as directed * Januvia 50 MG tablet(Started 02/15/2023) Take 1 (one) tablet by mouth once daily * sulfamethoxazole-trimethoprim (Bactrim DS; Septra DS) 800-160 MG tablet (Started 03/08/2023) Take 1 (one) tablet by mouth 2 times daily * albuterol (Proventil;Ventolin) (2.5 MG/3ML) 0.083% nebulizer solution(Started 11/28/2022) Inhale 2.5 (two and one-half) mg by mouth as directed * rOPINIRole (Requip) 0.5 MG tablet(Started 03/08/2023) Take 1 (one) tablet by mouth once daily * rOPINIRole (Requip) 1 MG tablet(Started 10/04/2022) Take 1 (one) tablet by mouth as directed * rosuvastatin (Crestor) 20 MG tablet Take 1 (one) tablet by mouth once daily Active Problems No known active problems Immunizations * INFLUENZA VACCINE, QUADR. (FLUZONE; FLULAVAL; FLUARIX; AFLURIA QUADRIVALENT; 6MO+), 0.5 ML (IIV4)(Given 12/28/2022, 01/10/2022, 03/05/2021) * TDAP, HISTORIC VACCINE(Given 12/17/2019) Social History Tobacco Use Types Packs/Day Years [...] Comments Blood Pressure 155/92 03/24/2023 2:17 PM CASE WORK AIDE Pulse 101 03/24/2023 2:17 PM CASE WORK AIDE Temperature 36.7 ??C (98 ??F) 03/24/2023 2:17 PM CASE WORK AIDE Respiratory Rate 18 03/24/2023 2:17 PM CASE WORK AIDE Oxygen Saturation 96% 03/24/2023 2:17 PM CASE WORK AIDE Inhaled Oxygen Concentration - - Weight 84.3 kg (185 lb 12.8 oz) 03/24/2023 2:17 PM CASE WORK AIDE Height 162.6 cm (5' 4 ) 03/24/2023 2:17 PM CASE WORK AIDE Body Mass Index 31.89 03/24/2023 2:17 PM CASE WORK AIDE Procedures * XR SHUNT SERIES(Performed 03/24/2023) Performed for History of brain shunt * XR LUMBAR SPINE 4VW OR MORE(Performed 03/24/2023) Performed for Chronic back pain greater than 3 months duration * TN FINE NEEDLE ASPIRATION(Performed 03/15/2023) Performed for Multinodular goiter, Thyroid nodule * FINE NEEDLE ASPIRATION (STL)(Performed 03/15/2023) Performed for Multinodular goiter, Thyroid nodule Results * XR SHUNT SERIES (03/24/2023 4:02 PM CASE WORK AIDE) Anatomical Region Laterality Modality Abdomen, Pelvis Radiographic Yani ging 03/26/2023 9:35 AM CASE WORK AIDE Impressions 03/26/2023 10:05 PM CASE WORK AIDE IMPRESSION: Intact left parietal approach ventriculoperitoneal shunt. Report dictated by Jamil Martin MD, (radiology asst). I, Petey Garnett MD have personally reviewed and interpreted this examination/study. > Interpreting Provider: Petey Garnett MD on 03/26/2023 10:05 PM Narrative 03/26/2023 10:05 PM CASE WORK AIDE PROCEDURE: ??XR SHUNT SERIES, DATE/TIME OF EXAM: ??03/24/2023 4:02 PM, LOCATION ??[facility] INDICATION: Z98.2: History of brain shunt ADDITIONAL CLINICAL INFORMATION: Ordering Provider Reason For Exam: ??History fo cyst in brain and shunt Technologist Note: Additional: COMPARISON: None. FINDINGS: A left parietal approach ventriculoperitoneal shunt has its intracranial tip terminating near the skull base. The shunt exits through a left parietal alana hole and courses through the left neck, left chest, left abdomen, and is coiled within the pelvis. A radiolucent valve is noted at the proximal portion just external to the calvarium. There is no mass effect surrounding its termination. No shunt discontinuity is seen. There is extensive internal fixation of the mandible is surgical clips seen in the mandible. There is no consolidation, pleural effusion, or pneumothorax. The bowel gas pattern is nonobstructive. Procedure Note Petey Garnett MD - 03/26/2023 PROCEDURE: XR SHUNT SERIES, DATE/TIME OF EXAM: 03/24/2023 4:02 PM, LOCATION [facility] INDICATION: Z98.2: History of brain shunt ADDITIONAL CLINICAL INFORMATION: Ordering Provider Reason For Exam: History fo cyst in brain and shunt Technologist Note: Additional: COMPARISON: None. FINDINGS: A left parietal approach ventriculoperitoneal shunt has its intracranial tip terminating near the skull base. The shunt exits through a left parietal alana hole and courses through the left neck, left chest, left abdomen, and is coiled within the pelvis. A radiolucent valve is notedat the proximal portion just external to the calvarium. There is no mass effect surrounding its termination. No shunt discontinuity is seen. There is extensive internal fixation of the mandible is surgical clipsseen in the mandible. There is no consolidation, pleural effusion, or pneumothorax. The bowelgas pattern is nonobstructive. IMPRESSION: Intact left parietal approach ventriculoperitoneal shunt. Report dictated by Jamil Martin MD, (radiology asst). I, Petey Garnett MD have personally reviewed and interpreted this examination/study. > Interpreting Provider: Petey Garnett MD on 03/26/2023 10:05 PM Giovanni Rowley MD DIAGNOSTIC IMAGING O RDERABLES * XR LUMBAR SPINE 4VW OR MORE (03/24/2023 4:02 PM CASE WORK AIDE) Anatomical Region Laterality Modality Spine Radiographic Yani ging 03/26/2023 9:29 AM CASE WORK AIDE Impressions 03/26/2023 10:06 PM CASE WORK AIDE Impression: There are 5 nonrib-bearing vertebral bodies and a lumbarized S1. The first vertebral body without a rib is designated as L1. The L2 vertebral body shows mild compression deformity without significant height loss. There is no malalignment or subluxation. There is moderate facet arthropathy lower lumbar spine. There is extensive atherosclerosis. > Dictated by Jamil Martin MD I, Petey Garnett MD have personally reviewed and interpreted this examination/study. > Interpreting Provider: Petey Garnett MD on 03/26/2023 10:06 PM Narrative 03/26/2023 10:06 PM CASE WORK AIDE PROCEDURE: ??XR LUMBAR SPINE 4VW OR MORE DATE/TIME OF EXAM: ??03/24/2023 4:02 PM CLINICAL INFORMATION: None relevant/not provided if blank. Indication: M54.9: Chronic back pain greater than 3 months duration G89.29: Chronic back pain greater than 3 months duration Additional History: COMPARISON: None. Procedure Note Petey Garnett MD - 03/26/2023 PROCEDURE: XR LUMBAR SPINE 4VW OR MORE DATE/TIME OF EXAM: 03/24/2023 4:02 PM CLINICAL INFORMATION: None relevant/not provided if blank. Indication: M54.9: Chronic back pain greater than 3 months duration G89.29: Chronic back pain greater than 3 months duration Additional History: COMPARISON: None. Impression: There are 5 nonrib-bearing vertebral bodies and a lumbarized S1. Thefirst vertebral body without a rib is designated as L1. The L2 vertebral body shows mild compression deformity without significant height loss. Thereis no malalignment or subluxation. There is moderate facet arthropathylower lumbar spine. There is extensive atherosclerosis. > Dictated by Jamil Martin MD I, Petey Garnett MD have personally reviewed and interpreted this examination/study. > Interpreting Provider: Petey Garnett MD on 03/26/2023 10:06 PM Giovanni Rowley MD DIAGNOSTIC IMAGING O RDERABLES * TN FINE NEEDLE ASPIRATION (03/15/2023 3:42 PM CASE WORK AIDE) Narrative Bridger Qureshi APRN-CNP - 03/15/2023 3:42 PM CASE WORK AIDE Bridger Qureshi APRN-CNP ? 03/15/2023 ??3:45 PM Procedure note Procedure: Fine-needle aspiration Indication:Thyroid nodule Site: left Thyroid Details: The lesion was visualized with an ultrasound probe. ??A 25-gauge needle was used to aspirate the lesion under direct visualization with attention directed towards the capsule. ??This was initially reviewed with cytopathology onsite and additional tissue was recommended. ??A total of 4 passes were made. ??There was minimal bleeding. An ice pack was placed to the site for 10 minutes. The patient tolerated this very well. Start time: 1020 ??Pause Time: 1030 ??Stop Time: 1130 Bridger Qureshi COAL GRADER-BATTERY TESTER PROCEDURE/ MINOR SURGICAL ORDERABLES * FINE NEEDLE ASPIRATION (STL) (03/15/2023 11:30 AM CASE WORK AIDE) Case Report Medical Cytology Report ? Case: [id number] ? Authorizing Provider: ??Bridger Qureshi, ? Collected: ? 03/15/2023 11:30 AM ? COAL GRADER-BATTERY TESTER ? Ordering Location: ? [facility] - Otolaryngology ?? Received: ?03/15/2023 01:46 PM ? Pathologist: ? Ronak Kilpatrick MD ? Specimen: ?Neck Mass, left thyroid nodule TR4 ? 03/17/2023 12:43 PM [facility] Specimen Adequacy Unsatisfactory cellularity for evaluation. 03/17/2023 12:43 PM [facility] Final Diagnosis Thyroid, left nodule, US-FNA: - Benign (TBSRTC Category II), colloid nodule (see description) - Adequacy: Colloid only 03/17/2023 12:43 PM [facility] Clinical History The patient is a 58 year-old female with history of thyroid nodule that underwent FNA. 03/17/2023 12:43 PM [facility] Gross Description 1 Thinprep Pap stained slide from a 25 cc collection fluid 03/17/2023 12:43 PM [facility] Microscopic Description A ThinPrep slide is essentially devoid of follicular epithelium. However colloid is present, suggestive of a benign colloid nodule. 03/17/2023 12:43 PM [facility] Pathologist Location at [facility] 03/17/2023 12:43 PM [facility] Disclaimer The performance characteristics of all immunohistochemical and indirect immunofluorescence stains (if any) cited in this report were determined by the Histopathology Laboratory of [facility]. Some of these tests rely on the use of analyte-specific reagents and are subject to specific labeling requirements by the US Food and Drug Administration. Such tests were developed by the Histology Laboratory of [facility] and have not been cleared or approved by the FDA. The FDA has determined that such clearance and approval is not necessary. These tests are used for clinical purposes and should not be regarded as investigational or for research. This laboratory is certified under the Clinical Laboratory Improvement Amendments (CLIA) as qualified to perform high complexity clinical laboratory testing. This case has been personally reviewed and interpreted by the attending (teaching) pathologist. 03/17/2023 12:43 PM [facility] Embedded Images 03/17/2023 12:43 PM [facility] Pathology/Cytolo gy MASS OF NECK / Unknown Collection / Unknown 03/15/2023 11:30 AM CASE WORK AIDE 03/15/2023 1:46 PM CASE WORK AIDE Bridger Qureshi COAL GRADER-BATTERY TESTER LAB - PATH OLOGY/CYTOLOGY ORDERABLES [facility] [address] [place] [place] [address], [facility] [phone] Care Teams Peer Specialist Relationship Specialty Start Date End Date Jorge Luis Hill MD [address] [place] [address] PCP - General 02/10/17
[2024-03-27 06:19] VITALS: BP 146/89; PULSE 80; RESP 18; TEMP 36.2; O2SAT 100
[2024-03-27 06:38] LABS: Glucose Point of Care 121 mg/dl (65-105)
[2024-03-27] MEDS: LACTATED RINGERS 1,000 ML 150 ML IV CONT (06:40)
--- NOTE | 2024-03-27 07:28 | WPDANESEPPF ---
Anes - Initial Pre Proc Eval Procedure: Operation Date: 03/27/24 07:30 Proposed Procedures p Esophagogastroduodenoscopy & Colonoscopy - Nick Wiggins MD Date/Time: 03/27/24 07:28 Surgeon: Nick Wiggins MD Pre Op Diagnosis: constipation,lower abd pain,GERD,vomiting Patient Data Age: 59 Gender: F Height: 1.63 m Weight: 82.2 kg Last Vital Signs Temp 36.2 C L 03/27/24 06:19 Pulse 80 03/27/24 06:19 Resp 18 03/27/24 06:19 BP 146/89 H 03/27/24 06:19 Pulse Ox 100 03/27/24 06:19 O2 Del Method Nasal Cannula 03/27/24 06:19 O2 Flow Rate 3 03/27/24 06:19 Allergies Allergy/AdvReac Type Severity Reaction Status Date / Time No Known Allergies Allergy Verified 03/27/24 06:11 Home Medications ?Medication ?Instructions ?Recorded ?Confirmed ?Type montelukast 10 mg tablet 10 mg PO HS 12/09/19 03/27/24 History (Singulair) metformin 500 mg tablet 1,000 mg PO BID 06/07/21 03/27/24 History clonidine HCl 0.1 mg tablet 0.1 mg PO HS 09/25/21 03/27/24 History furosemide 40 mg tablet 40 mg PO DAILY 09/25/21 03/27/24 History losartan 50 mg tablet 50 mg PO DAILY 09/25/21 03/27/24 History albuterol sulfate 90 mcg/actuation 2 puff inhalation QID PRN 12/10/21 03/27/24 History aerosol inhaler (ProAir HFA) Shortness Of Breath albuterol sulfate 90 mcg/actuation 2 puff inhalation QID PRN 12/10/21 03/27/24 History aerosol inhaler (Ventolin HFA) Shortness Of Breath cholecalciferol (vitamin D3) 25 25 mcg PO DAILY 12/10/21 03/27/24 History mcg (1,000 unit) tablet (Vitamin D3) ropinirole 0.25 mg tablet 0.25 mg PO HS 12/10/21 03/27/24 History rosuvastatin 20 mg tablet 20 mg PO DAILY 12/10/21 03/27/24 History sulfamethoxazole 800 1 tablet PO Q12H 10 days #20 tabs 12/12/21 03/18/24 Rx mg-trimethoprim 160 mg tablet (Bactrim DS) diltiazem HCl 360 mg 360 mg PO DAILY 07/07/23 03/27/24 History capsule,extended release 24 hr loratadine 10 mg tablet 10 mg PO DAILY 07/07/23 03/27/24 History sitagliptin phosphate 50 mg tablet 50 mg PO DAILY 07/07/23 03/27/24 History (Januvia) acetaminophen 500 mg tablet 1,000 mg (2 x 500 mg) PO Q6H PRN 07/08/23 03/18/24 Rx Pain 1-3 or Fever #30 tabs amitriptyline 50 mg tablet 50 mg PO HS #30 tabs 12/22/23 03/27/24 Rx pantoprazole 40 mg tablet,delayed 40 mg PO BID #60 tabs 12/22/23 03/27/24 Rx release linaclotide 290 mcg capsule 290 mcg PO DAILY #30 caps 03/15/24 03/27/24 Rx (Linzess) aspirin 81 mg capsule 81 mg PO DAILY 03/18/24 03/27/24 History metoclopramide HCl 10 mg tablet See Rx Instructions .Route 03/18/24 03/27/24 Rx .COMPLEX #90 tabs Laboratory Tests 03/27/24 06:36 POC Capillary Glucose 121 H mg/dl (65-105) Patient hx anesthesia problems: none Family hx anesthesia problems: none Results Review: All pre-operative results and documents have been reviewed as part of the pre-operative evaluation. 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 H/O: hysterectomy H/O cardiac catheterization Family History Family History Father Diabetes mellitus Hypertension Mother Hypertension Other Arthritis Asthma Cancer Cerebrovascular accident Depression Family history of arthritis Family history of heart disease in male family member before age 55 Family history of lung disease High cholesterol Social History Social History Smoking packs per day: 2 Smoking cigarettes per day: 40.0 Years smoked: 41 Smoking pack-years: 82.00 Smoking status: Former smoker Tobacco type: cigarettes Second hand tobacco smoke exposure: Yes Alcohol intake: former Substance use: never Substance use type: does not use Do You Feel Safe in your Home?: Yes Lack of Transportation: YES Lack of Food: Sometimes True Current Housing: I Do Not Have Housing Concerned About Future Housing: YES Difficulty Paying Gas/Electric Bills: No Difficulty Paying for Meds: No Currently Unemployed: No Education: Decline to Answer Difficulty w/ Childcare or Family Care: No Living arrangements: with family Occupation/Education: unemployed Gender identity (if verbalized by the patient): Female Sexual Orientation (if Verbalized by the Patient): Straight or Heterosexual Spiritual care concerns: No Anes - Eval Final PreProcedure Day of Procedure 03/27/24 07:28 Patient weight: overweight Heart: regular rate and rhythm Lungs: decreased breath sounds Airway: Mallampati scale class III Neurological: alert and oriented Last oral intake: >/= 8 hours ASA classification: III Emergent: no Anesthetic plan: proceed Anesthesia type and monitoring: general GIVS and standard monitoring Results Review: All pre-operative results and documents have been reviewed as part of the pre-operative evaluation. Informed Consent: The patient's anesthetic plan and its attendant risks and benefits were discussed with the patient/family/POA. Questions were solicited and answers provided to the satisfaction of the patient/family/POA.
--- NOTE | 2024-03-27 07:33 | PM.IMHP ---
H&P: HPI History of Present Illness Date/Time: 03/27/24 07:33 Chief Complaint: Dysphagia -GERD- history of colonic polyps Narrative: this patient has been suffering from heartburn for several years, and has intermittent dysphagia. Her last EGD was in 2018 finding a Schatzki ring which was dilated with a 60 Belgian dilator. Her last colonoscopy was in 2021 and had adenomas, and she is here for a surveillance colonoscopy. 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 H/O: hysterectomy H/O cardiac catheterization Family History Family History Father Diabetes mellitus Hypertension Mother Hypertension Other Arthritis Asthma Cancer Cerebrovascular accident Depression Family history of arthritis Family history of heart disease in male family member before age 55 Family history of lung disease High cholesterol Social History Social History Smoking packs per day: 2 Smoking cigarettes per day: 40.0 Years smoked: 41 Smoking pack-years: 82.00 Smoking status: Former smoker Tobacco type: cigarettes Second hand tobacco smoke exposure: Yes Alcohol intake: former Substance use: never Substance use type: does not use Do You Feel Safe in your Home?: Yes Lack of Transportation: YES Lack of Food: Sometimes True Current Housing: I Do Not Have Housing Concerned About Future Housing: YES Difficulty Paying Gas/Electric Bills: No Difficulty Paying for Meds: No Currently Unemployed: No Education: Decline to Answer Difficulty w/ Childcare or Family Care: No Living arrangements: with family Occupation/Education: unemployed Gender identity (if verbalized by the patient): Female Sexual Orientation (if Verbalized by the Patient): Straight or Heterosexual Spiritual care concerns: No Meds Home Medications and Allergies Home Medications ?Medication ?Instructions ?Recorded ?Confirmed ?Type montelukast 10 mg tablet 10 mg PO HS 12/09/19 03/27/24 History (Singulair) metformin 500 mg tablet 1,000 mg PO BID 06/07/21 03/27/24 History clonidine HCl 0.1 mg tablet 0.1 mg PO HS 09/25/21 03/27/24 History furosemide 40 mg tablet 40 mg PO DAILY 09/25/21 03/27/24 History losartan 50 mg tablet 50 mg PO DAILY 09/25/21 03/27/24 History albuterol sulfate 90 mcg/actuation 2 puff inhalation QID PRN 12/10/21 03/27/24 History aerosol inhaler (ProAir HFA) Shortness Of Breath albuterol sulfate 90 mcg/actuation 2 puff inhalation QID PRN 12/10/21 03/27/24 History aerosol inhaler (Ventolin HFA) Shortness Of Breath cholecalciferol (vitamin D3) 25 25 mcg PO DAILY 12/10/21 03/27/24 History mcg (1,000 unit) tablet (Vitamin D3) ropinirole 0.25 mg tablet 0.25 mg PO HS 12/10/21 03/27/24 History rosuvastatin 20 mg tablet 20 mg PO DAILY 12/10/21 03/27/24 History sulfamethoxazole 800 1 tablet PO Q12H 10 days #20 tabs 12/12/21 03/18/24 Rx mg-trimethoprim 160 mg tablet (Bactrim DS) diltiazem HCl 360 mg 360 mg PO DAILY 07/07/23 03/27/24 History capsule,extended release 24 hr loratadine 10 mg tablet 10 mg PO DAILY 07/07/23 03/27/24 History sitagliptin phosphate 50 mg tablet 50 mg PO DAILY 07/07/23 03/27/24 History (Januvia) acetaminophen 500 mg tablet 1,000 mg (2 x 500 mg) PO Q6H PRN 07/08/23 03/18/24 Rx Pain 1-3 or Fever #30 tabs amitriptyline 50 mg tablet 50 mg PO HS #30 tabs 12/22/23 03/27/24 Rx pantoprazole 40 mg tablet,delayed 40 mg PO BID #60 tabs 12/22/23 03/27/24 Rx release linaclotide 290 mcg capsule 290 mcg PO DAILY #30 caps 03/15/24 03/27/24 Rx (Linzess) aspirin 81 mg capsule 81 mg PO DAILY 03/18/24 03/27/24 History metoclopramide HCl 10 mg tablet See Rx Instructions .Route 03/18/24 03/27/24 Rx .COMPLEX #90 tabs Allergies Allergy/AdvReac Type Severity Reaction Status Date / Time No Known Allergies Allergy Verified 03/27/24 06:11 Vital Signs Vital Signs - 24 hr 03/27/24 06:19 Temperature 97.1 F L Pulse Rate 80 Respiratory Rate 18 Blood Pressure 146/89 H Pulse Oximetry 100 Oxygen Delivery Nasal Cannula Oxygen Flow Rate 3 Exam Const: General: cooperative and healthy appearing Resp: Effort & Inspection: normal respiratory effort and able to speak in complete sentences Auscultation: clear to auscultation bilaterally Cardio: Rate: regular rate Rhythm: regular rhythm GI: Inspection: normal to inspection GI Palp: No No hepatosplenomegaly present Auscultation: normal bowel sounds Rectal Exam: deferred Skin: General skin exam: normal color Psych: Appearance: grossly normal Mental Status: mental status grossly normal Assessment and Plan Assessment and plan (1) Personal history of colon polyps, unspecified: Code(s): Z86.0100 - Personal history of colon polyps, unspecified Status: Acute Assessment and Plan: The patient is deemed a good candidate for the procedures. Consent signed. Will proceed. (2) Dysphagia: Qualifiers: Dysphagia type: esophageal phase Qualified Code(s): R13.19 - Other dysphagia Code(s): R13.10 - Dysphagia, unspecified Status: Acute (3) GERD (gastroesophageal reflux disease): Qualifiers: Esophagitis presence: without esophagitis Qualified Code(s): K21.9 - Gastro-esophageal reflux disease without esophagitis Code(s): K21.9 - Gastro-esophageal reflux disease without esophagitis Status: Acute
--- NOTE | 2024-03-27 07:52 | SUR.OPER ---
EGD end 743 COLONOSCOPY START 6032
[2024-03-27 08:08] VITALS: BP 94/73; PULSE 66; RESP 13; O2SAT 99
[2024-03-27 08:18] VITALS: BP 98/64; PULSE 65; RESP 17; O2SAT 100
[2024-03-27 08:28] VITALS: BP 120/83; PULSE 74; RESP 20; O2SAT 100
== END 2024-03-27 09:03 | disposition home or self-care (01) ==
PROVIDERS: PCP Emergency Medicine; Referring Provider Nurse Practitioner Family; Visit Provider Internal Medicine Gastroenterology
PROC: 0DJ08ZZ Inspection of Upper Intestinal Tract, Via Natural or Artificial Opening Endoscopic (ICD-10-PCS; CPT 45378; principal; 2024-03-27 07:30)
DX: Z12.11 Encounter for screening for malignant neoplasm of colon (principal); D12.4 Benign neoplasm of descending colon; D12.3 Benign neoplasm of transverse colon; K21.00 Gastro-esophageal reflux disease with esophagitis, without bleeding; K29.30 Chronic superficial gastritis without bleeding; K44.9 Diaphragmatic hernia without obstruction or gangrene; E78.5 Hyperlipidemia, unspecified; I10 Essential (primary) hypertension; E11.9 Type 2 diabetes mellitus without complications; F41.9 Anxiety disorder, unspecified; G47.33 Obstructive sleep apnea (adult) (pediatric); F32.A Depression, unspecified; J44.9 Chronic obstructive pulmonary disease, unspecified; M19.90 Unspecified osteoarthritis, unspecified site; Z79.51 Long term (current) use of inhaled steroids; Z79.84 Long term (current) use of oral hypoglycemic drugs; Z79.82 Long term (current) use of aspirin; Z98.890 Other specified postprocedural states; Z98.61 Coronary angioplasty status; Z87.891 Personal history of nicotine dependence; Z87.19 Personal history of other diseases of the digestive system; Z86.79 Personal history of other diseases of the circulatory system; Z80.9 Family history of malignant neoplasm, unspecified; Z82.49 Family history of ischemic heart disease and other diseases of the circulatory system
CPT/HCPCS: 43239; 45385; 82948; 88305; J2003; J2704; J7120

== ENCOUNTER 2024-04-01 18:35 | Emergency (ER) | payer OTHER, SELFPAY ==
--- NOTE | ~2024-04-01 | XR_ITS ---
AP view of the pelvis and AP and lateral views of the right hip Clinical history: Pain Findings: No acute fracture or dislocation is seen. Osseous alignment is anatomic. Bilateral hip and SI joint spaces are preserved. Soft tissues are unremarkable. Impression: No significant abnormality is seen. Reviewed, dictated and finalized at [facility]. S OR BARGES LOADER Impression: No significant abnormality is seen.
--- NOTE | ~2024-04-01 | XR_ITS ---
Lumbosacral Spine: AP and lateral views Clinical History: Pain Findings: Probable minimal chronic anterior wedging deformity of L1. There is moderate degenerative d isc narrowing at L4-L5. There is advanced degenerative disc narrowing at L5-S1. There is moderate to advanced facet arthropathy throughout the lumbar spine. The sacroiliac joints are normally outlined. Impression: Moderate to advanced degenerative spondylosis, as above. Probable minimal chronic wedging deformity of L1. Reviewed, dictated and finalized at location [facility] Impression: Moderate to advanced degenerative spondylosis, as above. Probable minimal chronic wedging deformity of L1.
--- OUTSIDE RECORDS SUMMARY | 2024-04-01 18:37 | XMS_ITS | Clinical Summary ---
Author Organization [facility] Address [address] [place] [address] Care Team Providers Care Waxer Operator Name Role Phone Jorge Luis Hill MD Primary Care Provider [phone] Source Comments [facility],non-owned Affiliates and Associated Physician Practices is amultiple site organization consisting of ambulatory clinics and hospital sitesin [place], [place], [place] and [place]. This disclosure is being madepursuant to the Care Everywhere program and may not contain all information available regarding this patient. Last updated 17.[facility] Allergies No known active allergies Medications * [...] naloxone HCl (Narcan) 4 MG/0.1ML nasal spray [place] 40 (forty) sprays into the nose as [...] Comments Blood Pressure 155/92 03/24/2023 2:17 PM TAKER DOWN Pulse 101 03/24/2023 2:17 PM TAKER DOWN Temperature 36.7 ??C (98 ??F) 03/24/2023 2:17 PM TAKER DOWN Respiratory Rate 18 03/24/2023 2:17 PM TAKER DOWN Oxygen Saturation 96% 03/24/2023 2:17 PM TAKER DOWN Inhaled Oxygen Concentration - - Weight 84.3 kg (185 lb 12.8 oz) 03/24/2023 2:17 PM TAKER DOWN Height 162.6 cm (5' 4 ) 03/24/2023 2:17 PM TAKER DOWN Body Mass Index 31.89 03/24/2023 2:17 PM TAKER DOWN Plan of Treatment Upcoming Encounters Date Type Department Care Team (Late st Contact Info) Description 05/31/2024 1:15 PM CDT Appointment [facility] [address] [place] [id number] Bridger Qureshi, POWER TRUCK DRIVER-SHEET ROCKER [address] [place] [address] Health Maintenance Due Date Last Done Comments [...] age to complete this topic Care Teams Waxer Operator Relationship Specialty Start Date End Date Jorge Luis Hill MD [address] [facility] [address] [place] [address] PCP - General 02/10/17
--- OUTSIDE RECORDS SUMMARY | 2024-04-01 18:37 | XMS_ITS | Referral Summary ---
Author Organization [facility] Address [address] [place] [address] Care Team Providers Care Projection Printer Name Role Phone Jorge Luis Hill MD Primary Care Provider [phone] Source Comments [facility],non-owned Affiliates and Associated Physician Practices is amultiple site organization consisting of ambulatory clinics and hospital sitesin [place], [place], [place] and [place]. This disclosure is being madepursuant to the Care Everywhere program and may not contain all information available regarding this patient. Last updated 17.[facility] Allergies No known active allergies Medications * [...] naloxone HCl (Narcan) 4 MG/0.1ML nasal spray [place] 40 (forty) sprays into the nose as [...] Comments Blood Pressure 155/92 03/24/2023 2:17 PM HAND STONE POLISHER Pulse 101 03/24/2023 2:17 PM HAND STONE POLISHER Temperature 36.7 ??C (98 ??F) 03/24/2023 2:17 PM HAND STONE POLISHER Respiratory Rate 18 03/24/2023 2:17 PM HAND STONE POLISHER Oxygen Saturation 96% 03/24/2023 2:17 PM HAND STONE POLISHER Inhaled Oxygen Concentration - - Weight 84.3 kg (185 lb 12.8 oz) 03/24/2023 2:17 PM HAND STONE POLISHER Height 162.6 cm (5' 4 ) 03/24/2023 2:17 PM HAND STONE POLISHER Body Mass Index 31.89 03/24/2023 2:17 PM HAND STONE POLISHER Plan of Treatment Upcoming Encounters Date Type Department Care Team (Late st Contact Info) Description 05/31/2024 1:15 PM CDT Appointment [facility] [address] [place] [address] Bridger Qureshi, CAR PUSHER-MEDICAL REIMBURSEMENT SPECIALIST [address] [facility] [address] [place] [address] Care Teams Projection Printer Relationship Specialty Start Date End Date Jorge Luis Hill MD [address] [facility] [address] [place] [address] PCP - General 02/10/17
--- OUTSIDE RECORDS SUMMARY | 2024-04-01 18:37 | XMS_ITS | Clinical Summary ---
Author Organization [facility] Address [address] [place] [address] Phone Care Team Providers Care Poker Manager Name Role Phone Jorge Luis Hill MD Primary Care Provider [phone] Allergies No known active allergies Medications Medication [...] Comments Influenza Vaccine (#1) 2023 Care Teams Poker Manager Relationship Specialty Start Date End Date Jorge Luis Hill MD PCP - General Family Medicine 08/28/18
--- OUTSIDE RECORDS SUMMARY | 2024-04-01 18:37 | XMS_ITS | Data Portability ---
Author Organization [place] - [facility] [employer], Main Office Address [address] [place] [address] Care Team Providers Care Green T[employer] Inspector Name Role Phone MASSIMO QUINTANA Primary Care Provider Assessment No assessment recorded. Plan of Treatment Reminders Order Date Submit Date Provider Last Modified By Organization Details Last Modified Time Details Appointments None recorded. Lab None recorded. Referral None recorded. Procedures None recorded. Surgeries None recorded. Imaging None recorded. Medication Orders ropinirole 0.5 mg tablet [address] [facility], [address] [place], [address], 3 21:39:36 Breztri Aerosphere 160 mcg-9mcg-4. 8mcg/actuat ion HFA aerosol inhaler 2022 023 [id number], [address], [place], [id number], 3 21:32:06 albuterol sulfate HFA 90 mcg/actuati on aerosol inhaler 2022 023 [id number], [address], [place], [id number], 3 21:32:06 Patient TargetsNo targets recorded. Patient InstructionsNo instructions recorded. Reason for Referral None Reported. Results Created Date Observation Date Name Description Value Unit Range Abnormal Flag Note LastModifiedBy Organization Detail LastModifiedTime 12/11/1912/07/2021 six minut e walk test* No observ ation record ed. [id number] [facility] [address], [place], [address], 04/27/2022 01:23:36 12/11/19 22 12/07/2021 compl ete PFT w/ post [facility] hodil ator clarisa metry * No observ ation record ed. [id number] [facility] ([facility]) [facility] [facility] [address] [facility], [place], [address], 04/27/2022 01:23:36 12/25/19 22 12/07/2021 compl ete PFT w/ post [facility] hodil ator clarisa metry * No observ ation record ed. [id number] [facility] ([facility]) [address] [place] [address] [facility], [place], [address], 04/27/2022 01:23:36 12/25/19 22 12/07/2021 six minut e walk test* No observ ation record ed. [id number] [facility] ([facility]) [address] [place] [address] [facility], [place], [address], 04/27/2022 01:23:36 Result Notes None recorded. Problems Name Problem SNOMED Code Status Onset Date Resolution Date Notes Provider Name and Address Organization Details Recorded Time Chronic obstructive pulmonary disease 80915794 Active 2017 Not Available [facility] 3 01:04:05 Body mass index 30+ - obesity 274389062 Active 2017 Not Available [facility] 3 01:04:05 Abscess of submandibular region 05663214 Active 2021 Not Available [facility] 3 01:04:05 Gastroesophag eal reflux disease without esophagitis 818962115 Active 2017 Not Available [facility] 3 01:04:05 Tachycardia 5599188 Active 2021 Not Available [facility] 3 01:04:05 Periodic limb movement disorder 789674440 Active 2017 Not Available [facility] 3 01:04:05 Infection of tooth 463068655 Active 2021 Not Available [facility] 3 01:04:05 Nicotine dependence 81662908 Active 2020 Not Available [facility] 3 01:04:05 Dyspnea on exertion 06809975 Active 2017 Not Available [facility] 3 01:04:06 Allergic rhinitis 47057696 Active 2020 Not Available [facility] 3 01:04:06 Hemoptysis 81612683 Active 2021 Not Available [facility] 3 01:04:06 Chronic cough 75293753 Active 2021 Not Available [facility] 3 01:04:06 Obstructive sleep apnea syndrome 52987056 Active 2017 Not Available [facility] 3 01:04:06 Fatigue 10965541 Active 2017 Not Available [facility] 3 01:04:06 Tobacco dependence syndrome 54225995 Active 2017 Not Available [facility] 3 01:04:06 Problem Notes None recorded. Procedures Surgical History Date Name Laterality Status Provider Name and Address Organization Details Recorded Time 2 colonoscopy completed Not Available [facility] 04/28/19 23 00:52:48 Imaging Results Imaging Date Name Status LastModified by Organization Details LastModified Time 12/07/2021 complete PFT w/ post bronchodilator spirometry* completed [id number] [facility]) [address] [place] [address], [address], 04/27/2022 01:23:36 12/07/2021 six minute walk test* completed [id number] [facility] [address] [place] [address], [address], 04/27/2022 01:23:36 12/07/2021 six minute walk test* completed [id number] [facility] ([facility]) [address] [place] [address], [address], 04/27/2022 01:23:36 12/07/2021 complete PFT w/ post bronchodilator spirometry* completed [id number] [facility] ([facility]) [address], [place], [address], 04/27/2022 01:23:36 Procedure Notes None recorded. Medical [...] Recorded Body mass index (BMI) Body height Body height Oxygen saturation Oxygen saturation in Arterial blood by Pulse oximetry Oxygen saturation Oxygen saturation in Arterial blood by Pulse oximetry Heart rate Heart rate Body weight Systolic blood pressure Diastolic blood pressure Systolic blood pressure Diastolic blood pressure Provider Name and Address Organization Details Last Updated DateTime 3 42.8 kg/m2 156.21 cm 156.21 cm 98 % 98 % 98 % 98 % 91 /min 90 /min 540500. 25 g 120 mm[Hg] 62 mm[Hg] 126 mm[Hg] 72 mm[Hg] Not Available [facility] 3 00:54:34 Date Recorded Body height Body temperature Heart rate Oxygen saturation Oxygen saturation in Arterial blood by Pulse oximetry Inhaled oxygen flow rate Systolic blood pressure Diastolic blood pressure Provider Name and Address Organization Details Last Updated DateTime 3 156.21 cm 96.6 [degF] 100 /min 97 % 97 % 2 L/min 120 mm[Hg] 70 mm[Hg] Bessie Ty MA [place] [employer] [facility] 3 14:04:16 Date Recorded Body height Body temperature Heart rate Oxygen saturation Oxygen saturation in Arterial blood by Pulse oximetry Inhaled oxygen flow rate Systolic blood pressure Diastolic blood pressure Provider Name and Address Organization Details Last Updated DateTime 3 156.21 cm 97.3 [degF] 98 /min 95 % 95 % 2 L/min 120 mm[Hg] 64 mm[Hg] Bessie Ty MA [place] - [facility] [employer] [facility] 3 14:25:29 Date Recorded Body height Heart rate Oxygen saturation Oxygen saturation in Arterial blood by Pulse oximetry Inhaled oxygen flow rate Systolic blood pressure Diastolic blood pressure Provider Name and Address Organization Details Last Updated DateTime 3 156.21 cm 112 /min 97 % 97 % 2 L/min 118 mm[Hg] 68 mm[Hg] Laura Kwon [facility] [employer] [facility] 3 16:29:56 Social History Question Answer Notes LastModified by Organization Details LastModified Time Tobacco Smoking Status Current Every Day Smoker Not Available [facility] 04/27/2022 00:48:19 Do You Have An Advance Directive? No MIGRATION.0301 [id number] Information not available 04/27/2022 What Is Your Level Of Alcohol Consumption? None MIGRATION.0301 680102 Information not available 04/27/2022 What Is Your Level Of Caffeine Consumption? Heavy Coffee Drinker All Day Longer MIGRATION.0301 [id number] Information not available 04/27/2022 How Much Tobacco Do You Chew? None MIGRATION.0301 980919 Information not available 04/27/2022 In The 14 Days Before Symptom Onset, Have You Had Close Contact With A Laboratory-confi rmed COVID-19 While That Case Was Ill? No MIGRATION.0301 984675 Information not available 04/27/2022 In The 14 Days Before Symptom Onset, Have You Had Close Contact With A Person Who Is Under Investigation For COVID-19 While That Person Was Ill? No MIGRATION.0301 680897 Information not available 04/27/2022 What Type Of Diet Are You Following? REGULAR MIGRATION.0301 607588 Information not available 04/27/2022 Which Illicit Or Recreational Drugs Have You Used? None MIGRATION.0301 245823 Information not available 04/27/2022 Do You Or Have You Ever Used E-cigarettes Or Vape? Never Used Electronic Cigarettes MIGRATION.0301 950404 Information not available 04/27/2022 Do You Have An Electrostatic Air Filter? No MIGRATION.0301 051457 Information not available 04/27/2022 What Is Your Occupation? [employer] MIGRATION.0301 769958 Information not available 04/27/2022 Do You Have A Humidifier? No MIGRATION.0301 751117 Information not available 04/27/2022 Where Do You Live? [place] MIGRATION.0301 880309 Information not available 04/27/2022 Do You Have Moisture Problems In Your Home? No MIGRATION.0301 009452 Information not available 04/27/2022 What Was The Date Of Your Most Recent Tobacco Screening? 12/01/2020 MIGRATION.0301 405575 Information not available 04/27/2022 How Many Children Do You Have? 2 MIGRATION.0301 819004 Information not available 04/27/2022 Have You Ever Been Counseled For Unhealthy Alcohol Use? No MIGRATION.0301 337853 Information not available 04/27/2022 Do You Have Any Pets? Yes Dogs Inside MIGRATION.0301 740232 Information not available 04/27/2022 Do You Have Smoke And Carbon Monoxide Detectors In Your Home? Yes MIGRATION.0301 105105 Information not available 04/27/2022 At What Age Did You Start Smoking Tobacco? 12 MIGRATION.0301 145456 Information not available 04/27/2022 Are You Passively Exposed To Smoke? Yes MIGRATION.0301 251412 Information not available 04/27/2022 Do You Or Have You Ever Used Smokeless Tobacco? Never Used Smokeless Tobacco MIGRATION.0301 224792 Information not available 04/27/2022 How Much Tobacco Do You Smoke? 0.5 PPD MIGRATION.0301 629006 Information not available 04/27/2022 Do You Use Any Illicit Or Recreational Drugs? No MIGRATION.0301 107287 Information not available 04/27/2022 Has Tobacco Cessation Counseling Been Provided? No MIGRATION.0301 050523 Information not available 04/27/2022 How Many Years Have You Smoked Tobacco? 47 MIGRATION.0301 080874 Information not available 04/27/2022 Have You Recently Traveled Abroad? No MIGRATION.0301 280990 Information not available 04/27/2022 Do You Have Any Dietary Restrictions? No MIGRATION.0301 647034 Information not available 04/27/2022 Do You Or Have You Ever Used Any Other Forms Of Tobacco Or Nicotine? No MIGRATION.0301 179127 Information not available 04/27/2022 Sex: Female Functional Status Question Answer Note LastModified by Organizat ion Details LastModified Time What is your exercise level? None [id number] Information not available 04/27/2022 Mental Status None recorded. Family History Relationship Description Onset Age of this Age Resolved Age Notes LastModified by Organization Details LastModified Time Mother Heart disease MIGRATION.629 [id number] Not available 04/27/2022 00:52:53 Mother Hyperlipidem ia MIGRATION.310 [id number] Not available 04/27/2022 00:52:53 Father Diabetes mellitus MIGRATION.225 [id number] Not available 04/27/2022 00:52:54 Father Hypertensive disorder MIGRATION.155 [id number] Not available 04/27/2022 00:52:54 Father Hyperlipidem ia MIGRATION.802 8879323 Not available 04/27/2022 00:52:54 Maternal Grandmother Hypertensive disorder MIGRATION.156 [id number] Not available 04/27/2022 00:52:54 Maternal Grandmother Diabetes mellitus MIGRATION.842 0912384 Not available 04/27/2022 00:52:54 Maternal Grandmother Hyperlipidem ia MIGRATION.979 [id number] Not available 04/27/2022 00:52:54 Maternal Aunt Tuberculosis MIGRA TION.619 [id number] Not available 04/27/2022 00:52:54 Medical History Condition Response HEADACHES/MIGRAINES Y OBESITY Y GERD/NAUSEA Y DIABETES, TYPE Y LUNG DISEASE/DISORDER Y INSOMNIA Y HAVE YOU BEEN HOSPITALIZED OR SEEN IN [facility] IN THE PAST YEAR ? Y HYPERTENSION Y HIGH CHOLESTEROL / HYPERLIPIDEMIA Y Gynecological HistoryNo gynecological history recorded. Obstetrics History GPAL:G 0 P 0 0 0 0 Immunizations Vaccine Type Date Status Note Provider Nam e and Address Organization Details Recorded Time COVID-19, mRNA, LNP-S, PF, 30 mcg/0.3 mL dose 08/26/2020 completed Not Available [facility] 3 01:22:02 COVID-19, mRNA, LNP-S, PF, 30 mcg/0.3 mL dose 08/05/2020 completed Not Available [facility] 3 01:22:02 Influenza, split virus, quadrivalent, PF 01/10/2022 completed Not Available [facility] 3 01:22:03 Past Encounters Encounter ID Performer Location Encounter Start Date Encounter Closed Date Diagnosis/Indication Diagnosis SNOMED-CT Code Diagnosis ICD10 Code Diagnosis Note [id number] [facility] [place] [address] [facility] [address] [place] [address] 05/04/2020 00:00:00 05/04/2020 16:30:03 [id number] [facility] [place] [address] [place] [address] 08/04/2020 00:00:00 08/04/2020 22:05:39 [id number] [facility] [place] [address] [place] [address] 12/01/2020 00:00:00 12/01/2020 16:42:55 [id number] [facility] [place] [address] [place] [address] 01/18/2021 00:00:00 01/18/2021 13:55:44 [id number] _ATHENA_M IGRATION_ DEFAULT_1 _1 , 05/06/2021 00:00:00 05/06/2021 20:34:03 [id number] [facility] [place] [address] [place] [address] 05/17/2021 00:00:00 05/17/2021 15:36:20 [id number] _ATHENA_M IGRATION_ DEFAULT_1 _1 , 07/01/2021 00:00:00 07/01/2021 18:04:40 [id number] [facility] [place] [address] [place] [address] 08/17/2021 00:00:00 08/17/2021 15:25:57 [id number] [facility] [place] [address] [place] [address] 11/29/2021 00:00:00 11/29/2021 14:11:03 [id number] [facility] W[place] [address] [place] [address] 01/10/2022 00:00:00 01/10/2022 22:47:30 [id number] [facility] [address], [address] [address] 08/17/2020 00:00:00 08/17/2020 19:27:11 [id number] [facility] Lelia Whyte [address] [address] 09/16/2020 00:00:00 09/16/2020 17:31:30 [id number] [facility] Wendy Whyte [address] [address] 10/14/2020 00:00:00 10/14/2020 16:40:48 [id number] [facility] [address] Whyte, [address] [address] 11/11/2020 00:00:00 11/11/2020 16:25:13 [id number] [facility] Wendy Whyte, [address] [address] 12/10/2020 00:00:00 12/10/2020 16:23:52 [id number] [facility] Lelia Whyte, [address] [address] 02/01/2021 00:00:00 02/01/2021 12:49:29 [id number] [facility] Wendy Whyte [address] [address] 03/18/2021 00:00:00 03/18/2021 15:50:51 [id number] [facility] Wendy Whyte [address] [address] 04/28/2021 00:00:00 04/28/2021 16:40:45 [id number] [facility] [address] [address] 05/26/2021 00:00:00 05/26/2021 18:15:58 [id number] [facility] [address] [address] 06/23/2021 00:00:00 06/23/2021 17:59:26 [id number] [facility] Lelia Whyte [address] [address] 07/21/2021 00:00:00 07/21/2021 18:12:22 [id number] [facility] [address] [address] 09/23/2021 00:00:00 09/24/2021 15:34:34 [id number] [facility] [address] [address] 10/26/2021 00:00:00 10/27/2021 11:35:19 [id number] [facility] [address] [address] 12/23/2021 00:00:00 12/23/2021 17:16:35 [id number] [facility] [address] [place] [address] [address] 03/01/2022 00:00:00 03/01/2022 15:14:47 [id number] Lisa Zelaya NP [facility] [address] [address] 05/18/2022 16:17:51 05/18/2022 19:08:45 [id number] Jany Hernandez, FAMILY LIVING EDUCATOR-[facility] Pulmon[facility] Wanda Rondon [address] [place] [address] 05/24/2022 13:49:11 05/25/2022 08:31:43 Chronic obstructive pulmonary disease 58573183 J44.9 Trelegy Ellipta with persistent thrush reactions. 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 wnload today with 77% use greater [...] and lose weight Abscess of submandibular region 48357780 K12.2 CT Neck 12/13/21IM PRESSION:E rosion involving [...] drainable fluidcolle ction.Surg anson completed Chronic cough 09544731 R 05.3 She must quit smoking and maintain inhaler compliance Benzonatat e PRN onlyhistor y of multiple allergies to cat, dog, grassesCon tinue ClaritinSh e needs to see assistant auto center manager - previous referralSh e will schedule this after surgery for abscess Nicotine dependence 5629 4008 Z87.891 Smoking cessation counseling and techniques reviewed at length.?Literat ure reviewed.A void triggers, support groups.Dis traction techniques Greater than 3 but less than 10 minutes spent discussing cessation. Declines NRT.Discus sed Rx options if needed in the future. Dependence on supplemental oxygen 0219403805 07 Z99.81 2 liters with activity on DC from [facility] home care: / [phone] is compliant and has good benefit [id number] Jany Hernandez, [facility] [place] [address] [place] [address] 07/05/2022 13:58:42 07/06/2022 08:23:18 Chronic obstructive pulmonary disease 00324316 J44.9 Trelegy Ellipta with persistent thrush reactions. 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 with 77% use greater [...] signs and symptoms Dependence on supplemental oxygen 7018316167 07 Z99.81 2 liters with activity on DC from [facility] home care: / [phone] is compliant and has good benefitPla n to repeat this fall Dyspnea on exertion 6084 5006 R06.09 Multifacto ralLabs except RAST WNLShe must quit smoking and lose weight Chronic cough 34764771 R 05.3 She must quit smoking and maintain inhaler compliance Benzonatat e PRN only - order verbally called to pharmacy todayhisto ry of multiple allergies to cat, dog, grassesCon tinue ClaritinSh e needs to see assistant auto center manager - previous referral Abscess of submandibular region 59131755 K12.2 CT Neck 12/13/21IM PRESSION:E rosion involving [...] Rx options if needed in the future. [id number] Lisa Zelaya NP [facility] [address] [address] 08/17/2022 15:15:54 08/17/2022 18:08:44 [id number] Lisa Zelaya NP [facility] [address] [address] 09/22/2022 15:15:15 09/26/2022 17:03:51 [id number] Lisa Zelaya NP [facility] [address] [address] 11/15/2022 15:50:53 11/15/2022 16:43:16 [id number] Jany Hernandez, [facility] [place] [address] [place] [address] 11/30/2022 16:05:16 11/30/2022 17:25:18 Chronic obstructive pulmonary disease 22189797 J44.9 Trelegy Ellipta with persistent thrush reactions. 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 with 80% use greater [...] signs and symptoms Dependence on supplemental oxygen 9869505392 07 Z99.81 2 liters with activity on DC from [facility] home care: / [phone] is compliant and has good benefit Dyspnea on exertion 6084 5006 R06.09 Multifacto ralLabs except RAST WNLShe must quit smoking and lose weight Chronic cough 97508469 R 05.3 She must quit smoking and maintain inhaler compliance history of multiple allergies to cat, dog, grassesCon tinue ClaritinSh e needs to see assistant auto center manager - previous referral Abscess of submandibular region 30153324 K12.2 CT Neck 12/13/21IM PRESSION:E rosion involving [...] Rx options if needed in the future. [id number] Lisa Zelaya NP [facility] [address] [address] 02/09/2023 16:02:05 02/09/2023 17:31:11 [id number] Lisa Zelaya NP [facility] [address] [address] 05/02/2023 14:38:16 05/02/2023 15:37:25 [id number] Lisa Zelaya NP [facility] [address] [address] 09/25/2023 15:27:14 09/25/2023 17:33:48 [id number] Lisa Zelaya NP [facility] [address] [address] 11/30/2023 15:04:02 11/30/2023 15:47:13 [id number] Lisa Zelaya NP [facility] [address] [address] 02/14/2024 14:44:14 02/14/2024 15:16:38 Health Concerns Section Related Observation LastModified by Organization Detai ls LastModified Time None Recorded Concern Status LastModified by Organization Details LastModified Time None Recorded Advance Directives Directive N: Payers Encounter Date Sequence Insurance Name Policy Number Policy Beth Covered Member ID Beth Member ID Guarantor Name 05/24/2022 1 [facility] ON OR AFTER 08/27/20 (MEDICAID REPLACEMENT - HMO) Bev Grossman [id number] Bev Grossman 07/05/2022 1 [facility] DOS ON OR AFTER 20 (MEDICAID REPLACEMENT - HMO) Bev Prabhakar Grossman [id number] Bev Prabhakar Chauncey 11/30/2022 1 [facility] - DOS ON OR AFTER 20 (MEDICAID REPLACEMENT - HMO) Bev Viramontess [id number] Bev Prabhakar Chauncey Notes Date Note Type Note Provider Name [...] and staminaLiving out of a hotel roomTells me all she does is go to the [...] in the last 3 months Jany Hernandez, [facility] [address] [facility], [facility] [address], [place], [address], [facility] [employer] 05/24/2022 16:45:47 07/05/2022 text/html Bev presents today [...] respiratory infection in the last 4 months PATRICIA Hardy [address], [place] [address], [place], [address], [employer] 07/05/2022 21:43:21 11/30/2022 text/html Bev presents today [...] respiratory infection since last OV PATRICA Hardy [address], [place] [address], [place], [address], [employer] 11/30/2022 21:36:04 OBGyn Episode No OBEpisode recorded.
--- OUTSIDE RECORDS SUMMARY | 2024-04-01 18:37 | XMS_ITS | Encounter Summary ---
Author Organization [facility] Address [address] [place] [address] Phone Care Team Providers Care Service Counselor Name Role Phone Jorge Luis Hill MD Primary Care Provider [phone] Encounter Details Date Type Department Care Team (Late st Contact Info) Description 05/03/2022 Telephone [facility] [address] [address] [address] [place] [address] Janette Holcomb RN Social History Tobacco Use [...] often do you attend chur ch or yazidism services? Never 12/22/2021 Do you belong to any clubs o r organizations such as jehovah's witness groups, unions, fraternal or athletic groups, or [...] in a snf (including now)? No 12/22/2021 Comments No Sex and Gender Information Value Date Recorded Sex Assigned at Not on file Legal Sex Female 1:34 AM SHIPWRIGHT Gender Identity Not on file Sexual Orientation Not on file documented as of this encounter Plan of Treatment Not on file documented as of this encounter Visit Diagnoses Not on filedocumented in this encounter Additional Health Concerns Infection Onset Date Last Indicated Resolved Time MDR gram neg/ESBL 2022 2022 documented as of this encounter Care Teams Service Counselor Relationship Specialty Start Date End Date Jorge Luis Hill MD PCP - General 04/30/18 documented as of this encounter
--- OUTSIDE RECORDS SUMMARY | 2024-04-01 18:37 | XMS_ITS | Patient Health Summary ---
Author Organization [facility] [place] Address [address] [place] [address] Care Team Providers Care Medical Device Engineer Name Role Phone Jorge Luis Hill MD Primary Care Provider [phone] Note from [facility],non-owned Affiliates and Associated Physician Practices is amultiple site organization consisting of ambulatory clinics and hospital sitesin [place], [place]. This disclosure is being madepursuant to the Care Everywhere program and may not contain all information available regarding this patient. Last updated 17.[facility] Allergies No known active allergies Medications * [...] (one) tablet by mouth every morning * gfjocbo-bgdmcjxkizg-ysalumuzpt (Breztri Aerosphere) 160-9-4.8 MCG/ACT inhaler (Started 11/30/2022) [...] HCl (Narcan) 4 MG/0.1ML nasal spray(Started 05/19/2022) [place] 40 (forty) sprays into the nose as [...] Comments Blood Pressure 155/92 03/24/2023 2:17 PM FLIGHT SIMULATOR TEACHER Pulse 101 03/24/2023 2:17 PM FLIGHT SIMULATOR TEACHER Temperature 36.7 ??C (98 ??F) 03/24/2023 2:17 PM FLIGHT SIMULATOR TEACHER Respiratory Rate 18 03/24/2023 2:17 PM FLIGHT SIMULATOR TEACHER Oxygen Saturation 96% 03/24/2023 2:17 PM FLIGHT SIMULATOR TEACHER Inhaled Oxygen Concentration - - Weight 84.3 kg (185 lb 12.8 oz) 03/24/2023 2:17 PM FLIGHT SIMULATOR TEACHER Height 162.6 cm (5' 4 ) 03/24/2023 2:17 PM FLIGHT SIMULATOR TEACHER Body Mass Index 31.89 03/24/2023 2:17 PM FLIGHT SIMULATOR TEACHER Procedures * XR SHUNT SERIES(Performed 03/24/2023) Performed for History of brain shunt * XR LUMBAR SPINE 4VW OR MORE(Performed 03/24/2023) Performed for Chronic back pain greater than 3 months duration * AR FINE NEEDLE ASPIRATION(Performed 03/15/2023) Performed for Multinodular goiter, Thyroid nodule * FINE NEEDLE ASPIRATION (STL)(Performed 03/15/2023) Performed for Multinodular goiter, Thyroid nodule Results * XR SHUNT SERIES (03/24/2023 4:02 PM FLIGHT SIMULATOR TEACHER) Anatomical Region Laterality Modality Abdomen, Pelvis Radiographic Yani ging 03/26/2023 9:35 AM FLIGHT SIMULATOR TEACHER Impressions 03/26/2023 10:05 PM FLIGHT SIMULATOR TEACHER IMPRESSION: Intact left parietal approach ventriculoperitoneal shunt. Report dictated by Jamil Martin MD, (resident physician in radiology). I, Petey Garnett MD have personally reviewed and interpreted this examination/study. > Interpreting Provider: Petey Garnett MD on 03/26/2023 10:05 PM Narrative 03/26/2023 10:05 PM FLIGHT SIMULATOR TEACHER PROCEDURE: ??XR SHUNT SERIES, DATE/TIME OF EXAM: ??03/24/2023 4:02 PM, LOCATION ??[facility] INDICATION: Z98.2: History of brain shunt ADDITIONAL [...] DATE/TIME OF EXAM: 03/24/2023 4:02 PM, LOCATION [facility] INDICATION: Z98.2: History of brain shunt ADDITIONAL [...] shunt. Report dictated by Jamil Martin MD, (resident physician in radiology). I, Petey Garnett MD have personally reviewed and interpreted this examination/study. > Interpreting Provider: Petey Garnett MD on 03/26/2023 10:05 PM Giovanni Rowley MD DIAGNOSTIC IMAGING O RDERABLES * XR LUMBAR SPINE 4VW OR MORE (03/24/2023 4:02 PM FLIGHT SIMULATOR TEACHER) Anatomical Region Laterality Modality Spine Radiographic Yani ging 03/26/2023 9:29 AM FLIGHT SIMULATOR TEACHER Impressions 03/26/2023 10:06 PM FLIGHT SIMULATOR TEACHER Impression: There are 5 nonrib-bearing vertebral bodies [...] 03/26/2023 10:06 PM Narrative 03/26/2023 10:06 PM FLIGHT SIMULATOR TEACHER PROCEDURE: ??XR LUMBAR SPINE 4VW OR MORE [...] Rowley MD DIAGNOSTIC IMAGING O RDERABLES * AR FINE NEEDLE ASPIRATION (03/15/2023 3:42 PM FLIGHT SIMULATOR TEACHER) Narrative Bridger Qureshi APRN-CNP - 03/15/2023 3:42 PM FLIGHT SIMULATOR TEACHER Bridger Qureshi APRN-CNP ? 03/15/2023 ??3:45 PM [...] Time: 1030 ??Stop Time: 1130 Bridger Qureshi DAMAGE APPRAISER-TRAILER TECHNICIAN PROCEDURE/ MINOR SURGICAL ORDERABLES * FINE NEEDLE ASPIRATION (STL) (03/15/2023 11:30 AM FLIGHT SIMULATOR TEACHER) Case Report Medical Cytology Report ? Case: [id number] ? Authorizing Provider: ??Bridger Qureshi, ? Collected: ? 03/15/2023 11:30 AM ? DAMAGE APPRAISER-TRAILER TECHNICIAN ? Ordering Location: ? [facility] - Otolaryngology ?? Received: ?03/15/2023 01:46 PM ? Pathologist: ? Ronak Kilpatrick MD ? Specimen: ?Neck Mass, left thyroid nodule TR4 ? 03/17/2023 12:43 PM [facility] Specimen Adequacy Unsatisfactory cellularity for evaluation. 03/17/2023 12:43 PM [facility] Final Diagnosis Thyroid, left nodule, US-FNA: - Benign (TBSRTC Category II), colloid nodule (see description) - Adequacy: Colloid only 03/17/2023 12:43 PM [facility] Clinical History The patient is a 58 year-old female with history of thyroid nodule that underwent FNA. 03/17/2023 12:43 PM [facility] Gross Description 1 Thinprep Pap stained slide from a 25 cc collection fluid 03/17/2023 12:43 PM [facility] Microscopic Description A ThinPrep slide is essentially devoid of follicular epithelium. However colloid is present, suggestive of a benign colloid nodule. 03/17/2023 12:43 PM [facility] Pathologist Location at [facility] 03/17/2023 12:43 PM [facility] Disclaimer The performance characteristics of all immunohistochemical and indirect immunofluorescence stains (if any) cited in this report were determined by the Histopathology Laboratory of [facility]. Some of these tests rely on the use of analyte-specific reagents and are subject to specific labeling requirements by the US Food and Drug Administration. Such tests were developed by the Histology Laboratory of [facility] and have not been cleared or [...] the attending (teaching) pathologist. 03/17/2023 12:43 PM [facility] Embedded Images 03/17/2023 12:43 PM [facility] Pathology/Cytolo gy MASS OF NECK / Unknown Collection / Unknown 03/15/2023 11:30 AM FLIGHT SIMULATOR TEACHER 03/15/2023 1:46 PM FLIGHT SIMULATOR TEACHER Bridger Qureshi DAMAGE APPRAISER-TRAILER TECHNICIAN LAB - PATH OLOGY/CYTOLOGY ORDERABLES [facility] PATH[facility] LAB [address] [place] [address], [facility] [phone] Care Teams Medical Device Engineer Relationship Specialty Start Date End Date Jorge Luis Hill MD [address] [place] [address] PCP - General 02/10/17
--- OUTSIDE RECORDS SUMMARY | 2024-04-01 18:37 | XMS_ITS | Encounter Summary ---
Author Organization [facility] Address [address] [place] [address] Phone Care Team Providers Care Repair Coil Winder Name Role Phone Jorge Luis Hill MD Primary Care Provider [phone] Encounter Details Date Type Department Care Team (Late st Contact Info) Description 05/07/2022 Documentation [facility] - [facility] ENT [address] [facility] 11th [place] [address] [place] [id number] Amadeo Bazzi MD [address] [place], [place] [id number] Social History Tobacco Use Types Packs/Day Years [...] How often do you attend chur or shinto services? Never 12/22/2021 Do you belong to any clubs o r organizations such as christian groups, unions, fraternal or athletic groups, or [...] place to sleep or slept in a jail (including now)? No 12/22/2021 Comments No Sex and Gender Information Value Date Recorded Sex Assigned at Not on file Legal Sex Female 1:34 AM BUSINESS CENTER MANAGER Gender Identity Not on file Sexual Orientation Not on file documented as of this encounter Plan of Treatment Not on file documented as of this encounter Visit Diagnoses Not on filedocumented in this encounter Additional Health Concerns Infection Onset Date Last Indicated Resolved Time MDR gram neg/ESBL 2022 2022 documented as of this encounter Care Teams Repair Coil Winder Relationship Specialty Start Date End Date Jorge Luis Hill MD PCP - General 04/30/18 documented as of this encounter
--- OUTSIDE RECORDS SUMMARY | 2024-04-01 18:37 | XMS_ITS | Clinical Summary ---
Author Organization [facility] Address [address] [place] [address] Care Team Providers Care Livestock Exhibitor Name Role Phone Jorge Luis Hill MD Primary Care Provider [phone] Medications PROAIR HFA 90 mcg/actuation inhaler INHALE [...] mg tablet Active naloxone (Narcan) 4 mg/spray [place], Non-Aerosol Narcan 4 mg/actuation nasal spray 03/18/19 [...] route as directed for 30 days. 12/01/19 23 Active Active Problems Problem Noted Date Diagnosed Date Iron deficiency anemia 10/27/2021 Submental lymphadenopathy 10/27/2021 Duct ectasia, right 06/25/2018 Sign and symptom in breast 06/19/2018 Abnormal ultrasound of breast 06/19/2018 Abnormal mammogram of right breast 06/06/2018 Cigarette dependence 06/06/2018 Encounters Date Type Department Care Team Description 03/27/2024 External Device Data [facility] ABSTRACTION Provider, Abstract 03/21/2024 External Device Data [facility] ABSTRACTION Provider, [...] MONTHS 10/16/2022 04/18/2022, INFLUENZA VACCINE (#1) 2023 3, 01/10/2022, 03/05/2021 DTAP/TDAP/TD VACCINES (2 - T [...] Insurance [employer] Care Teams Livestock Exhibitor Relationship Specialty Start Date End Date Jorge Luis Hill MD PCP - General Emergency Medicine 05/30/18
--- OUTSIDE RECORDS SUMMARY | 2024-04-01 18:37 | XMS_ITS | CONTINUITY OF CARE DOCUMENT ---
Author Name meli garrison Address Unknown Organization [facility] Address [address] [place] [address] Phone [phone] Care Team Providers Care Employee Placement Specialist Name Role Phone Bulmaro Riggs MD Unavailable MASSIMO QUINTANA MD Unavailable [phone] MASSIMO QUINTANA MD Unavailable [phone] PROBLEMS Condition Status Date Provider Notes TOBACCO ABUSE active Cathyrob Lorenzo ASTHMA active Cathy Lorenzo CHEST PAIN-06/04 CATH DIFFUSE DISEASE LAD DIS active ? Bulmaro Riggs MD HTN-09/04 ECHO EF 45-50 05/05 ECHO EF 35 ,EF 09/05 60% completed - Bulmaro Riggs MD CAD-01/02 NUC EF 40 NORM completed - Bulmaro mak MD CAD-05/05 CAROTID NEG completed - Omar Vargas HTN-05/05 JESIKA DUP NEG completed - Bulmaro Riggs MD HTN-09/05 ECHO EF 55 completed - Bulmaro Mendieta DIZZINESS S/P AGRICULTURAL TECHNICIAN SHUNT--stre ss nuc normal ef 57%, 10/2017 active Bulmaro Riggs MD SLEEP APNEA ON CPAP active Bulmaro Riggs MD Diabetes mellitus active Bulmaro Riggs MD HTN--echo ef 61%, 10/2020 active Omar harkins Chronic back pain active Bulmaro Riggs MD Shortness of breath active Bulmaro Riggs MD CAD--normal stress nuc 02/2021 active Omar Vargas ENCOUNTERS Date Type Provider Location Encounter Diagnosis - In-person encounter Office Visit Bulmaro Riggs MD [facility] - In-person encounter Office Visit Bulmaro Riggs MD [facility] - In-person encounter Office Visit Bulmaro Riggs MD [facility] - In-person encounter Office Visit Bulmaro Riggs MD [facility] CAD-05/05 CAROTID NEGHTN--echo ef 61%, AD--normal stress nuc 02/2021 - In-person encounter Office Visit Bulmaro Riggs MD [facility] Shortness of breath - In-person encounter Office Visit Bulmaro Riggs MD [facility] Office HTN-09/04 ECHO EF 45-50 05/05 ECHO EF 35 ,EF 09/05 60%CAD-01/02 NUC EF 40 NORMHTN-05/05 JESIKA DUP NEGHTN-09/05 ECHO EF 55DIZZINESS S/P AGRICULTURAL TECHNICIAN SHUNT--stress nuc normal ef 57%, 10/2017HTN--echo ef 61%, hronic back pain - In-person encounter Office Visit Bulmaro Riggs MD [facility] - In-person encounter Office Visit Bulmaro Riggs MD [facility] - In-person encounter Office Visit Bulmaro Riggs MD [facility] - In-person encounter Office Visit Bulmaro Riggs MD [facility] Diabetes mellitus - In-person encounter Office Visit Bulmaro Riggs MD [facility] - In-person encounter Office Visit Bulmaro Riggs MD [facility] - In-person encounter Office Visit Bulmaro Riggs MD [facility] - In-person encounter Office Visit Bulmaro Riggs MD [facility] - In-person encounter Office Visit Bulmaro Riggs MD [facility] - In-person encounter Office Visit Bulmaro Riggs MD [facility] - In-person encounter Office Visit Bulmaro Riggs MD [facility] DIZZINESS S/P AGRICULTURAL TECHNICIAN SHUNT--stress nuc normal ef 57%, 10/2017SLEEP APNEA ON CPAP - In-person encounter Office Visit Bulmaro Riggs MD [facility] - In-person encounter Office Visit Bulmaro Riggs MD [facility] - In-person encounter Office Visit Bulmaro Riggs MD [facility] - In-person encounter Office Visit Bulmaro Riggs MD [facility] - In-person encounter Office Visit Bulmaro Riggs MD [facility] - In-person encounter Office Visit Bulmaro Riggs MD [facility] - In-person encounter Office Visit Bulmaro Riggs MD [facility] CHEST PAIN-06/04 CATH DIFFUSE DISEASE LAD DISHTN-09/04 ECHO EF 45-50 05/05 ECHO EF 35 ,EF 09/05 60% - In-person encounter Office Visit Bulmaro Riggs MD [facility] VITAL SIGNS Date Observation Value Provider [...] blood pressure, cuff size large Mi deven [place] blood pressure, diastolic 60 mm[Hg] Mi deven [place] blood pressure, systolic 100 mm[Hg] Darren calderon [place] oxygen saturation, oximetry 98 % Adilene [place] respiratory rate E&M 16 /min Natalie marin [place] pulse rate 94 /min Adilene Lang d [...] Anaity Ketty height E&M 63 [in_i] Joiestity Ketty Body Mass Index (Ratio) 36.49 kg/m2 Jon [...] Normal Absolute Neutrophil count 5491 cells/mcL [employer] [id number] Normal platelet count 258 THOUSAND/UL [employer] 140-400 [...] active TAKE 1 TABLET BY MOUTH DAILY [facility] Specialist diltiazem HCl (Cardizem CD) 360 mg capsule,extended release 24hr active TAKE 1 CAPSULE BY MOUTH EVERY DAY [facility] furosemide 40 mg tablet completed Take 1 tablet by mouth once a day due for follow up - Omar Vargas diltiazem HCl (Cardizem CD) 360 mg capsule,extended release 24hr completed Take 1 capsule by mouth once a day - [facility] furosemide 40 mg tablet completed TAKE 1 [...] Omar Vargas cetirizine 10 mg tablet [facility] TRELEGY ELLIPTA 100-62.5-25 MCG/INH INHALATION AEROSOL POWDER BREATH ACTIVATED completed one puff once daily - David Segura TRAZODONE HCL 50 MG ORAL TABLET completed one tab once daily - Bulmaro Riggs MD SIMVASTATIN 40 MG ORAL TABLET completed one tab once daily - hCristopher Rhodes sertraline 100 mg tablet completed 200 [...] active as needed Siena Hdez VITAMIN D3 60285 UNIT ORAL TABLET active Take once a week Anushka Waterman ROPINIROLE HCL TABLET active Take every night Luz Maria Kwon losartan 50 mg tablet completed Take 1 tablet once a day - Lorraine Mack CLONIDINE HCL 0.1 MG ORAL TABLET completed ONE TAB. TWICE DAILY - Luz Maria Kwon carvedilol 12.5 mg tablet completed Take 1 tablet by mouth twice a day - mOar Vargas LOSARTAN POTASSIUM 100 MG ORAL TABLET [...] ewed - no changes required Paul Chau [place] physical exercise, frequency, days per week no [...] status Current every day smoker D zurdo [place] number of grandchildren Bulmaro Riggs MD T [...] Payer name Policy type / Coverage type [facility] libertarian [place] MEDICAID (2) Medicaid [id number] ADVANCE DIRECTIVES Name Date DISCUSSED - NO DECISION MADE TREATMENT PLAN Date Name Performer [id number],S, Omar Ahmedza i [id number],B, Omar Ahmedza i [id number],S, Omar Ahmedza i [id number],S, Omar Ahmedza i [id number],S, Omar Ahmedza i [id number],S, Omar Ahmedza i [id number],S, Omar Ahmedza i [id number],S, Omar Ahmedza i [id number],S, Omar Ahmedza i [id number],S, Omar Ahmedza i [id number],S, Omar Ahmedza i [id number],S, Omar Ahmedza i [id number],S, Omar Ahmedza i [id number],B, Omar Ahmedza i [id number],S, Omar Ahmedza i [id number],S, Omar Ahmedza i [id number],S, Omar Ahmedza i [id number],S, Omar Ahmedza i [id number],S, Omar Ahmedza i [id number],S, Omar Ahmedza i [id number],S, Omar Ahmedza i [id number],S, Omar Ahmedza i [id number],S, Omar Ahmedza i [id number],W, Omar Ahmedza i [id number],S, Omar Ahmedza i [id number],S, Omar Ahmedza i [id number],S, Omar Ahmedza i [id number],S, Omar Ahmedza i [id number],W, Omar Ahmedza i [id number],S, Omar Ahmedza i [id number],W, Omar Ahmedza i Telehealth Bobby Nacht Telehealth Bobby Nacht Telehealth Bobby Nacht Telehealth Bobby [facility] Telehealth Omar Ahmedzai Telehealth Omar Ahmedzai Telehealth Omar Ahmedzai Telehealth Omar Ahmedzai Telehealth Omar Ahmedzai Telehealth Omar Ahmedzai Telehealth Omar Ahmedzai Telehealth Omar Ahmedzai Telehealth Omar Ahmedzai Telehealth Omar Ahmedzai [facility] Omar Ahmedzai Telehealth Omar Ahmedzai Telehealth Omar Ahmedzai Telehealth Omar Ahmedzai Telehealth Omar Ahmedzai Cardiology Omar Ahmedzai [...] Paul Mishra Cardiology David Segura Cardiology [facility] Cardiology [facility] Cardiology [facility] Cardiology: B P today: 118/80 P rior [...] Overdue follow-up Bulmaro Mendieta Overdue follow-up Bulmaro Menideta Overdue follow-up Bulmaro Mendieta Overdue follow-up Bulmaro [...] ..... One tab. daily Orders: E KG (CPT-39053) Bulmaro Riggs MD f/u: H er updated medication list for this problem includes: Alprazolam 0.25 Mg Tabs (Alprazolam) ..... One tab. daily Carvedilol 12.5 Mg Tabs (Carvedilol) ..... Twice daily Lisinopril 20 Mg Tabs (Lisinopril) ..... One tab. daily Bulmaro Riggs MD : H er updated [...] (04/24/2008) Bulmaro Riggs MD 2 month follow-up Bulmaro Mendieta 2 month follow-up: H er updated [...] [facility]: T oneal following [...] tricuspid regurgitation. (01/18/2006) Orders: C omplete Echo (CPT-83294) R enal Artery Duplex (CPT-70732) C arotid Duplex Bilateral (CPT-44861) H olter Monitor 24 Hr (CPT-90834) S leep Study (*) Bulmaro Riggs [facility] Albrehct: T oneal following medications were removed from the medication list: Lasix 20 Mg Tabs (Furosemide) ..... Once daily Her updated medication list for this problem includes: Accupril 20 Mg Tabs (Quinapril hcl) ..... One tab. daily BP today: 170/98 P rior BP: 148/96 (01/08/2008) Orders: C omplete Echo (CPT-95995) R enal Artery Duplex (CPT-03986) C arotid Duplex Bilateral (CPT-67002) H olter Monitor 24 Hr (CPT-14464) S leep Study (*) Bulmaro Riggs MD needs clearance to [facility] per Dr. Albrecht: T oneal following [...] sat: 98 (04/21/2008) Orders: C omplete Echo (CPT-82098) R enal Artery Duplex (CPT-14870) Carotid Duplex Bilateral (CPT-83747) H olter Monitor 24 Hr (CPT-93833) S leep Study (*) Bulmaro Riggs [facility] Al[facility]cht: O rders: C omplete Echo (CPT-73950) R enal Artery Duplex (CPT-75268) C arotid Duplex Bilateral (CPT-46945) H olter Monitor 24 Hr (CPT-17410) S leep Study (*) Bulmaro Riggs MD needs clearance to [facility]uer[facility] per Dr. Albrecht: T oneal following [...] in the LAD. (06/26/2007) Orders: E KG (CPT-27654) C omplete Echo (CPT-41006) R enal Artery Duplex (CPT-60268) C arotid Duplex Bilateral (CPT-86064) H olter Monitor 24 Hr (CPT-72374) S lee Study (*) C OMPREHENSIVE METABOLIC PANEL W/EGFR (08949) C BC (H/H, RBC, INDICES, WBC, PLT) (8899) Bulmaro Riggs MD office visit: T he [...] distal disease in the LAD. (06/26/2007) Bulmaro Riggs MD office visit: T he [...] mitral regurgitation. T race tricuspid regurgitation. (01/18/2006) Bulmaro Riggs MD office visit:The Pat ient was [...] ed EKG Bulmaro Riggs MD completed SNOMED-CT: [id number] Physical Exam, Performed: Pulse Exam of Foot Bulmaro Riggs MD completed EKG Bulmaro Riggs MD completed SNOMED-CT: [id number] Current Medications Documented Bulmaro Riggs MD completed EKG Bulmaro Riggs MD completed EKG Bulmaro Riggs MD completed EKG Bulmaro Riggs MD completed EKG Bulmaro Riggs MD completed EKG Bulmaro Riggs MD completed
--- OUTSIDE RECORDS SUMMARY | 2024-04-01 18:37 | XMS_ITS | Clinical Summary ---
Author Organization [facility] Address [address] [place] [address]. [place], [place] [address] [place] [id number] Care Team Providers Care Cord Splicer Name Role Phone Jorge Luis Hill MD Primary Care Provider [phone] Allergies No known active allergies Medications rosuvastatin [...] capsule 2 Active vitamin D2, ergocalciferol , 68155 UNITS capsule 2 Active escitalopram 20 MG [...] Comments Blood Pressure 106/76 05/05/2021 12:15 PM QUALITY REVIEW TRAINER Pulse 83 05/05/2021 12:15 PM QUALITY REVIEW TRAINER Temperature 36.1 ??C (96.9 ??F) 05/05/2021 11:[address] Respiratory Rate 14 05/05/2021 12:15 PM QUALITY REVIEW TRAINER Oxygen Saturation 94% 05/05/2021 12:15 PM QUALITY REVIEW TRAINER Inhaled Oxygen Concentration - - Weight 108.4 kg (239 lb) 05/05/2021 10:03 AM QUALITY REVIEW TRAINER Height 157.5 cm (5' 2 ) 05/05/2021 10:03 AM QUALITY REVIEW TRAINER Body Mass Index 43.71 05/05/2021 10:03 AM QUALITY REVIEW TRAINER Plan of Treatment Health Maintenance Due Date [...] Diagnosis Comments COLONOSCOPY Routine 05/05/2021 11:05 AM QUALITY REVIEW TRAINER from Last 3 Months or Most Recently Relevant to Health Maintenance Results * Colonoscopy (05/05/2021 11:05 AM QUALITY REVIEW TRAINER) Narrative Estuardo Wells MD - 05/05/2021 11:05 AM QUALITY REVIEW TRAINER Estuardo Wells MD ? 05/05/2021 12:05 PM [...] the left lateral decubitus position, the Olympus [id number] ??colonoscope was introduced into the rectum and [...] of liver 04-14-2021 but was inpatient at [facility] - Will check to see if she had CT scan while inpatient Thank you for allowing me to care for your patient. She will follow-up with Dr. Hill as needed. Estuardo Wells M.D. Cc: Dr. Nithin Hill us Estuardo Wells MD GI PROCEDURE ORDERABLES Fin al Result from Last 3 Months or Most Recently Relevant to Health Maintenance Insurance [employer] Care Teams Cord Splicer Relationship Specialty Start Date End Date Jorge Luis Hill MD [address] [place] [id number] PCP - General FAMILY PRACTICE 11/25/19
--- OUTSIDE RECORDS SUMMARY | 2024-04-01 18:37 | XMS_ITS | Clinical Summary ---
Author Organization [facility] Address [address] [place] [address] Phone Care Team Providers Care Head Of It Name Role Phone Jorge Luis Hill MD Primary Care Provider [phone] Allergies No known active allergies Medications aspirin [...] 120 tablet 2 Active cholecalciferol (VITAMIN D-3) 36307 unit tablet Take 1 tablet (50,000 Units [...] remission Assessment & Plan (02/13/2024 11:57 AM ENSEMBLE MEMBER): Quit in November of 2023 She is due for annual CT chest in February of 2023 Chronic respiratory failure with hypoxia, on home O2 therapy ([facility]) 02/13/2024 Assessment & Plan (02/13/2024 11:58 AM ENSEMBLE MEMBER): Continue supplemental oxygen for saturations 90% I have advised her to get a home pulse oximeter and bring it to her next visit for comparison She has a visit with our design transferrer upcoming and will likely have an echocardiogram. I have asked her to have this faxed over to our office for review as well Diabetic peripheral neuropat hy associated with type 2 diabetes mellitus ([facility]) 08/07/2023 Assessment & Plan (08/07/2023 4:05 PM [...] (01/03/2022): Added automatically from request for surgery [id number] Smoking 12/14/2021 Assessment & Plan (12/19/2021 11:55 [...] months Assessment & Plan (01/14/2022 11:03 AM ENSEMBLE MEMBER): - Pt has completed 4 weeks of [...] tract. If no surgical plan, Resume diet. Aluminum Boat Inspector re supplements. Pain control with prn tylenol [...] disease) Assessment & Plan (02/13/2024 11:59 AM ENSEMBLE MEMBER): Continue Symbicort twice daily Continue Spiriva twice [...] 12/13/2021 Assessment & Plan (02/13/2024 11:57 AM ENSEMBLE MEMBER): Continue PAP with all sleep She is aware of the risks of uncorrected sleep apnea Assessment & Plan (12/21/2021 12:03 PM CDT): Exacerbated by BMI 42. Alert, oriented. Outpatient PSG Assessment & Plan (12/13/2021 11:24 AM CDT): Exacerbated by BMI 42. Alert, oriented. Morbid obesity with BMI of 40.0-44.9, adult 11/27 Assessment & Plan (12/14/2021 3:10 PM CDT): BMI 42.07, 104.3kg this admit. Aluminum Boat Inspector to see termite control servicer weight loss management goals with PCP, hx DM, HTN, ELIOT & may benefit from bariatric evaluation. Assessment & Plan (12/13/2021 10:25 AM CDT): BMI 42.07, 104.3kg this admit. Aluminum Boat Inspector to see termite control servicer weight loss management goals with PCP, hx DM, HTN, ELIOT & may benefit from bariatric evaluation. Pancreatic cyst 01/10/2020 Overview (01/10/2020): Added automatically from request for surgery [id number] Encounters Date Type Department Care Team Description 03/28/2024 Orders Only [facility] at [address] [place] [address] Jany Hernandez, UNDERGROUND UTILITY LOCATOR Pulmonary nodules (Primary Dx) 03/25/2024 12:27 PM ENSEMBLE MEMBER - 03/25/2024 11:59 PM ENSEMBLE MEMBER Hospital Encounter [facility] [address] [place] [address] Nicotine dependence, cigarettes, uncomplicated Discharge Disposition: Discharge to home or self care 03/22/2024 Telephone [facility] [address] [place] [address] Jany Marina RN 02/12/2024 3:00 PM ENSEMBLE MEMBER Office Visit [facility] at [address] [place] [address] Jany Hernandez NP Centrilobular emphysema (HCC) (Primary [...] HYSTERECTOMY W/ BILATERAL SALPINGOOPHORECTOMY 02/27/1995 - 02/27/1996 WELFARE ANALYST SHUNT INSERTION 02/27/2010 - 02/26/2011 COLONOSCOPY BRAIN [...] often do you attend chur ch or rastafari services? Never 12/22/2021 Do you belong to any clubs o r organizations such as congregation groups, unions, fraternal or athletic groups, or [...] place to sleep or slept in a longterm (including now)? No 12/22/2021 Personal Safety Answer Date Recorded Getting School Help Needed Denies 02/11 Comments No Sex and Gender Information Value Date Recorded Sex Assigned at Not on file Legal Sex Female 1:34 AM ENSEMBLE MEMBER Gender Identity Not on file Sexual Orientation Not on file Obstetrics History Last Filed Vital Signs Vital Sign Reading Time Taken Comments Blood Pressure 96/63 02/12/2024 2:42 PM ENSEMBLE MEMBER Pulse 86 02/12/2024 2:42 PM ENSEMBLE MEMBER Temperature 36.1 ??C (96.9 ??F) 02/12/2024 2:42 PM CS T Respiratory Rate 18 02/12/2024 2:42 PM ENSEMBLE MEMBER Oxygen Saturation 92% 02/12/2024 2:42 PM ENSEMBLE MEMBER Inhaled Oxygen Concentration - - Weight 85.3 kg (188 lb) 03/25/2024 12:44 PM ENSEMBLE MEMBER Height 162.6 cm (5' 4 ) 03/25/2024 12:44 PM ENSEMBLE MEMBER Body Mass Index 32.27 03/25/2024 12:44 PM ENSEMBLE MEMBER Plan of Treatment Health Maintenance Due Date [...] 12/13/2021, Additional history exists eGFR 08/02/2024 08/03/2023, /03/2023, 12/28/2022, Additional history exists Lung Cancer Screening 09/21/2024 03/25/2024 DTaP/Tdap/Td Vaccine (2 - Td or Tdap) 12/16/2029 12/17/2019 Hepatitis C Screening Completed 12/15/2021 Medical Devices Implanted Type Area Talent Management Specialist Device Identifier Shelf Expiration Date Model / Serial / Lot Shunt Implanted:Qty: 2 Shunt Brain Potentials Diwanee Hoagland Microvascular 3.5mm Ring Pin Protective Cover Jaw Assembly Latex Free [id number] - [id number] Implanted:Qty: 1 on 2022 by Ricci Shelton MD at [facility] Mandible Potentials FlexGen NorrisQuill [id number] 04/12/2026 [id number] / / [id number] [place] Craniomaxillofaci al 2mm Primary Reconstruction Customize Mandible Bebeto Plate Bone [id number] - [id number] Implanted:Qty: 1 on 2022 by Ricci Shelton MD at [facility] Mandible Álvaro Craniomaxillofacial [id number] / / Álvaro Craniomaxillofaci al Leibinger [place] 2 2.3mm 6mm Lock Cross Pin Maxillofacial [id number] - [id number] Implanted:Qty: 1 on 2022 by Ricci Shelton MD at [facility] Mandible Álvaro Craniomaxillofacial [id number] / / Álvaro Craniomaxillofaci al Leibinger [place] 2 2.3mm 8mm Lock Cross Pin Maxillofacial [id number] - [id number] Implanted:Qty: 2 on 2022 by Ricci Shelton MD at [facility] Mandible Álvaro Craniomaxillofacial [id number] / / [place] Craniomaxillofaci al Leibinger [place] 2 2.3mm 12mm Lock Cross Pin Maxillofacial [id number] - [id number] Implanted:Qty: 3 on 2022 by Ricci Shelton MD at [facility] Mandible [place] Craniomaxillofacial [id number] / / Álvaro Craniomaxillofaci al Leibinger [place] 2 2mm 6mm Self Tap Cross Pin Maxillofacial 50 - [id number] Implanted:Qty: 4 on 2022 by Ricci Shelton MD at [facility] Mandible [place] Craniomaxillofacial 50- / / [place] Craniomaxillofaci al Leibinger [place] 2 2mm 6mm Lock Cross Pin Maxillofacial Screw 50 - [id number] Implanted:Qty: 1 on 2022 by Ricci Shelton MD at [facility] Mandible [place] Craniomaxillofacial 50 / / Explanted Type Area Talent Management Specialist Device Identifier Shelf Expiration Date Model / Serial / Lot [place] Craniomaxillofaci al Leibinger [place] 2 2mm 8mm Self Tap Cross Pin Maxillofacial 50 - [id number] Explanted:Qty: 4 on 2022 at [facility] Mandible Álvaro Craniomaxillofacial 50- / / [place] Craniomaxillofaci al Leibinger [place] 2 2.3mm 8mm Self Tap Cross Pin Maxillofacial [id number] - [id number] Explanted:Qty: 1 on 2022 at [facility] Mandible [place] Craniomaxillofacial [id number] / / [employer] Probe Doppler 17.4cm Standard Cuff Implantable 20mhz Latex Free Sterile Microvascular Anastomoses [place] [id number] - [id number] Implanted:Qty: 1 on 2022 by Ricci Shelton MD at [facility] Explanted:Qty: 1 on 02/14/2022 by Marie Parr PA Right: Neck [facility] [id number] 10/27/2024 [id number] / / [id number] Procedures Procedure Name Priority Date/Time Associated Diagnosis Comments CT LUNG CANCER SCREENING Schedule Routine, Read Routine (OP Routine) 03/25/2024 12:46 PM ENSEMBLE MEMBER Nicotine dependence, cigarettes, uncomplicated POCT HEMOGLOBIN A1C Routine 08/07/2023 3:17 PM CDT Type 2 diabetes mellitus with hyperglycemia, without long-term current use of insulin (CMS/HCC) (HCC) EGFR Routine 08/03/2023 1:59 PM CDT Osteoporosis, unspecified osteoporosis type, unspecified pathological fracture presence LIPID PANEL STAT 02/15/2022 2:00 PM ENSEMBLE MEMBER HEPATITIS PANEL, ACUTE Routine 12/15/2021 11:19 PM CDT from Last 3 Months or Most Recently Relevant to Health Maintenance Results * CT Lung Cancer Screening (03/25/2024 12:46 PM ENSEMBLE MEMBER) Anatomical Region Laterality Modality Chest N/A Computed Tomogra phy 03/26/2024 9:54 AM ENSEMBLE MEMBER Narrative 03/26/2024 10:03 AM ENSEMBLE MEMBER EXAM DESCRIPTION: ?? CT LUNG CANCER SCREENING [...] AM T: ??03/26/2024 10:03 AM Report ID: [id number] Reading Location: [id number] Procedure Note Angela Almita Adonis DO - 03/26/2024 EXAM DESCRIPTION: CT LUNG [...] Almita Miller D.O. PS: PS Report ID: [id number] Reading Location: [place] [address] Ethan Leung MD IMG CT PROCEDURES Final [...] of Race in Diagnosing Kidney Disease, JASN 2020). The CKD-EPI equation should not be used for patients with unstable renal function and has not been validated in children and those over 70. Current interpretive data was last reviewed 2020. Blood 08/03/2023 1:59 PM CDT 08/03/2023 2:33 PM CDT us Carlos Manuel Raya MD LAB BLOOD ORDERABLES Final Resu lt [facility] [place] [address] * (ABNORMAL) Lipid panel (02/15/2022 2:00 PM ENSEMBLE MEMBER) Cholesterol 161 30 - 199 mg/dL [facility] [...] on 2017. Triglycerides 253(H) <=149 mg/dL [facility] Comment: Interpretive Data Ages < [...] on 2017. HDL 42 >=40 mg/dL [facility] Comment: Interpretive Data Ages < [...] 2017. LDL, calculated 68 <=129 mg/dL [facility] Comment: Interpretive Data Ages < [...] revised on 2017. Non-HDL Cholesterol 119 mg/dL [facility] Comment: Interpretive Data Ages [...] last revised on 2017. Chol/HDL ratio 4 [facility] Blood 02/15/2022 2:00 PM ENSEMBLE MEMBER 02/15/2022 5:52 PM ENSEMBLE MEMBER us Neri Loco MD LAB BLOOD ORDERABLES Fi nal Result [facility] [place] [address] * Hepatitis panel, acute (12/15/2021 11:19 PM CDT) Hep A IgM Nonreactive Nonreactive Comment: Interpretive Data: If Hep A IgM Ab is reported as Equivocal, a new sample should be drawn in two weeks for testing. Current interpretive data was last revised on 19. Hep B core IgM Nonreactive Nonreactive [facility] Comment: Interpretive Data If HepB Core IgM Ab is reported as Equivocal, a new sample should be drawn in two weeks for testing. Current interpretive data was last revised on 19. Hep C Ab Nonreactive Nonreactive [facility] Comment:Antibodies to HCV no t detected. Does NOT exclude the possibility of recent exposure to HCV. HepBsAg Nonreactive Nonreactive [facility] Blood 12/15/2021 11:1 9 PM CDT 12/16/2021 12:30 AM CDT us Orly Fine MD LAB MICROBIOLOGY - GENERAL O RDERABLES Edited Result - Final [facility] [place] [address] from Last 3 Months or Most Recently Relevant to Health Maintenance Additional Health Concerns Infection Onset Date Last Indicated MDR gram neg/ESBL 2022 2022 Insurance Advance Directives For more information, please contact: [phone] * Full Code (Latest Code Status on File) Date Activated Date Inactivated Comments 04/26/2022 9:48 PM 05/03/2022 6:39 PM * Full Code Date Activated Date Inactivated Comments 2022 9:27 PM 02/14/2022 9:56 PM * Full Code Date Activated Date Inactivated Comments 12/13/2021 5:40 PM 12/21/2021 6:14 PM * Full Code Date Activated Date Inactivated Comments 01/22/2020 1:18 PM 01/22/2020 10:15 PM Care Teams Head Of It Relationship Specialty Start Date End Date Jorge Luis Hill MD [facility] - General 04/30/18
--- OUTSIDE RECORDS SUMMARY | 2024-04-01 18:37 | XMS_ITS | Referral Summary ---
Author Organization [facility] Address [address] [place] [address] Phone Care Team Providers Care Bin Tripper Operator Name Role Phone Jorge Luis Hill MD Primary Care Provider [phone] Encounters Date Type Department Care Team Description 03/28/2024 Orders Only [facility] Pulmonary at [address] [place] [phone] Jany Hernandez NP Pulmonary nodules (Primary Dx) 03/25/2024 12:27 PM [employer] - 03/25/2024 11:59 PM [employer] Hospital Encounter [address] [address] Nicotine dependence, cigarettes, uncomplicated Discharge Disposition: Discharge to home or self care 03/22/[address] [address] Jany Marina RN 02/12/2024 3:00 PM [employer] Office Visit [facility] Pulmonary at [address] [place] [phone] Jany Hernandez NP Centrilobular emphysema (HCC) (Primary [...] 120 tablet 2 Active cholecalciferol (VITAMIN D-3) 09158 unit tablet Take 1 tablet (50,000 Units [...] use. Do not swallow. 1 each 11 4 Active tiotropium bromide (SPIRIVA RESPIMAT) 2.5 [...] remission Assessment & Plan (02/13/2024 11:57 AM [employer]): Quit in November of 2023 She is due for annual CT chest in February of 2023 Chronic respiratory failure with hypoxia, on home O2 therapy ([facility]) 02/13/2024 Assessment & Plan (02/13/2024 11:58 AM [employer]): Continue supplemental oxygen for saturations 90% I have advised her to get a home pulse oximeter and bring it to her next visit for comparison She has a visit with our shipmaster upcoming and will likely have an echocardiogram. I have asked her to have this faxed over to our office for review as well Diabetic peripheral neuropat hy associated with type 2 diabetes mellitus ([facility]) 08/07/2023 Assessment & Plan (08/07/2023 4:05 PM [...] (01/03/2022): Added automatically from request for surgery [id number] Smoking 12/14/2021 Assessment & Plan (12/19/2021 11:55 [...] months Assessment & Plan (01/14/2022 11:03 AM [employer]): - Pt has completed 4 weeks of [...] Broad spectrum IV abx, started IV Unasyn (12/13-c), monitor s/s infection & renal function. Plastics & OFMS consulted in ED, no notes yet. Will d/w plastics, anticipate pursuing ENT to evaluate management of osteonecrosis & sinus tract. If no surgical plan, Resume diet. Livestock Counter re supplements. Pain control with prn tylenol [...] disease) Assessment & Plan (02/13/2024 11:59 AM [employer]): Continue Symbicort twice daily Continue Spiriva twice [...] 12/13/2021 Assessment & Plan (02/13/2024 11:57 AM [employer]): Continue PAP with all sleep She is aware of the risks of uncorrected sleep apnea Assessment & Plan (12/21/2021 12:03 PM CDT): Exacerbated by BMI 42. Alert, oriented. Outpatient PSG Assessment & Plan (12/13/2021 11:24 AM CDT): Exacerbated by BMI 42. Alert, oriented. Morbid obesity with BMI of 40.0-44.9, adult 11/27 Assessment & Plan (12/14/2021 3:10 PM CDT): BMI 42.07, 104.3kg this admit. Livestock Counter to see [facility] weight loss management goals with PCP, hx DM, HTN, ELIOT & may benefit from bariatric evaluation. Assessment & Plan (12/13/2021 10:25 AM CDT): BMI 42.07, 104.3kg this admit. Livestock Counter to see [facility] weight loss management goals with PCP, hx DM, HTN, ELIOT & may benefit from bariatric evaluation. Pancreatic cyst 01/10/2020 Overview (01/10/2020): Added automatically from request for surgery [id number] Immunizations Name Administration Dates Next Due Influenza, [...] often do you attend chur ch or caodaism services? Never 12/22/2021 Do you belong to any clubs o r organizations such as anabaptist groups, unions, fraternal or athletic groups, or [...] place to sleep or slept in a half-way (including now)? No 12/22/2021 Personal Safety Answer Date Recorded Getting School Help Needed Denies 02/11 Comments No Sex and Gender Information Value Date Recorded Sex Assigned at Not on file Legal Sex Female 1:34 AM [employer] Gender Identity Not on file Sexual Orientation Not on file Last Filed Vital Signs Vital Sign Reading Time Taken Comments Blood Pressure 96/63 02/12/2024 2:42 PM [employer] Pulse 86 02/12/2024 2:42 PM [employer] Temperature 36.1 ??C (96.9 ??F) 02/12/2024 2:42 PM CS T Respiratory Rate 18 02/12/2024 2:42 PM [employer] Oxygen Saturation 92% 02/12/2024 2:42 PM [employer] Inhaled Oxygen Concentration - - Weight 85.3 kg (188 lb) 03/25/2024 12:44 PM [employer] Height 162.6 cm (5' 4 ) 03/25/2024 12:44 PM [employer] Body Mass Index 32.27 03/25/2024 12:44 PM [employer] Plan of Treatment Not on file Medical Devices Implanted Type Area Industrial Court Magistrate Device Identifier Shelf Expiration Date Model / Serial / Lot Shunt Implanted:Qty: 2 Shunt Brain Synovis Roving Planet Britt Microvascular 3.5mm Ring Pin Protective Cover Jaw Assembly Latex Free [id number] - [id number] Implanted:Qty: 1 on 2022 by Ricci Shelton MD at [facility] Mandible Synovis Medicine in Practice Allian [id number] 04/12/2026 [id number] / / [id number] Braggadocio Craniomaxillofaci al 2mm Primary Reconstruction Customize Mandible Bebeto Plate Bone [id number] - [id number] Implanted:Qty: 1 on 2022 by Ricci Shelton MD at [facility] Mandible Álvaro Craniomaxillofacial [id number] / / Álvaro Craniomaxillofaci al Leibinger Dennis 2 2.3mm 6mm Lock Cross Pin Maxillofacial 50-18263 - [id number] Implanted:Qty: 1 on 2022 by Ricci Shelton MD at [facility] Mandible Braggadocio Craniomaxillofacial [id number] / / Álvaro Craniomaxillofaci al Leibinger Dennis 2 2.3mm 8mm Lock Cross Pin Maxillofacial [id number] - [id number] Implanted:Qty: 2 on 2022 by Ricci Shelton MD at [facility] Mandible Álvaro Craniomaxillofacial [id number] / / Braggadocio Craniomaxillofaci al Leibinger Dennis 2 2.3mm 12mm Lock Cross Pin Maxillofacial [id number] - [id number] Implanted:Qty: 3 on 2022 by Ricci Shelton MD at [facility] Mandible Braggadocio Craniomaxillofacial [id number] / / Braggadocio Craniomaxillofaci al Leibinger Dennis 2 2mm 6mm Self Tap Cross Pin Maxillofacial 50 - [id number] Implanted:Qty: 4 on 2022 by Ricci Shelton MD at [facility] Mandible Álvaro Craniomaxillofacial 50 / / Braggadocio Craniomaxillofaci al Leibinger Dennis 2 2mm 6mm Lock Cross Pin Maxillofacial Screw 50 - [id number] Implanted:Qty: 1 on 2022 by Ricci Shelton MD at [facility] Mandible Braggadocio Craniomaxillofacial 50 / / Explanted Type Area Industrial Court Magistrate Device Identifier Shelf Expiration Date Model / Serial / Lot Braggadocio Craniomaxillofaci al Leibinger Dennis 2 2mm 8mm Self Tap Cross Pin Maxillofacial 50 - [id number] Explanted:Qty: 4 on 2022 at [facility] Mandible Braggadocio Craniomaxillofacial 50 / / Braggadocio Craniomaxillofaci al Leibinger Dennis 2 2.3mm 8mm Self Tap Cross Pin Maxillofacial [id number] - [id number] Explanted:Qty: 1 on 2022 at [facility] Mandible Álvaro Craniomaxillofacial [id number] / / [employer] Probe Doppler 17.4cm Standard Cuff Implantable 20mhz Latex Free Sterile Microvascular Anastomoses [place] [id number] - [id number] Implanted:Qty: 1 on 2022 by Ricci Shelton MD at [facility] Explanted:Qty: 1 on 02/14/2022 by Marie Parr PA Right: Neck [employer] [id number] 10/27/2024 [id number] / / [id number] Procedures Procedure Name Priority Date/Time Associated Diagnosis Comments CT LUNG CANCER SCREENING Schedule Routine, Read Routine (OP Routine) 03/25/2024 12:46 PM [employer] Nicotine dependence, cigarettes, uncomplicated POCT HEMOGLOBIN A1C Routine 08/07/2023 3:17 PM CDT Type 2 diabetes mellitus with hyperglycemia, without long-term current use of insulin (CMS/HCC) (HCC) EGFR Routine 08/03/2023 1:59 PM CDT Osteoporosis, unspecified osteoporosis type, unspecified pathological fracture presence LIPID PANEL STAT 02/15/2022 2:00 PM [employer] HEPATITIS PANEL, ACUTE Routine 12/15/2021 11:19 PM CDT from Last 3 Months or Most Recently Relevant to Health Maintenance Results * CT Lung Cancer Screening (03/25/2024 12:46 PM [employer]) Anatomical Region Laterality Modality Chest N/A Computed Tomogra phy 03/26/2024 9:54 AM [employer] Narrative 03/26/2024 10:03 AM [employer] EXAM DESCRIPTION: ?? CT LUNG CANCER SCREENING [...] AM T: ??03/26/2024 10:03 AM Report ID: [id number] Reading Location: ??[id number] Procedure Note Almita Miller DO - 03/26/2024 EXAM DESCRIPTION: CT LUNG [...] Almita Miller D.O. PS: PS Report ID: [id number] Reading Location: [place] [address] Ethan Leung MD IMG CT PROCEDURES Final Result * (ABNORMAL) POCT hemoglobin A1c (08/07/2023 3:17 PM CDT) Pathologist [facility] Hemoglobin A1C, POC 5.9 % Capillary blood [...] MD LAB BLOOD ORDERABLES Final Resu lt [facility] Department [place] [address] * (ABNORMAL) Lipid panel (02/15/2022 2:00 PM [employer]) Cholesterol 161 30 - 199 mg/dL [facility] [...] on 2017. HDL 42 >=40 mg/dL [facility] Comment: Interpretive Data Ages < or [...] 2017. LDL, calculated 68 <=129 mg/dL [facility] Comment: Interpretive Data Ages < or [...] revised on 2017. Non-HDL Cholesterol 119 mg/dL [facility] Comment: Interpretive Data Ages < or [...] last revised on 2017. Chol/HDL ratio 4 [facility] Blood 02/15/2022 2:00 PM [employer]ET[employer] 02/15/2022 5:52 PM [employer] MARKETING Neri Loco MD LAB BLOOD ORDERABLES Fi nal Result [facility] Department [place] [address] * Hepatitis panel, acute (12/15/2021 11:19 PM CDT) Hep A IgM Nonreactive Nonreactive Comment: Interpretive Data: If Hep A IgM Ab is reported as Equivocal, a new sample should be drawn in two weeks for testing. Current interpretive data was last revised on 19. Hep B core IgM Nonreactive Nonreactive [facility] Comment: Interpretive Data If HepB Core IgM Ab is reported as Equivocal, a new sample should be drawn in two weeks for testing. Current interpretive data was last revised on 19. Hep C Ab Nonreactive Nonreactive [facility] Comment:Antibodies to HCV no t detected. Does NOT exclude the possibility of recent exposure to HCV. HepBsAg Nonreactive Nonreactive [facility] Blood 12/15/2021 11:1 9 PM CDT 12/16/2021 12:30 AM CDT us Orly Fine MD LAB MICROBIOLOGY - GENERAL O RDERABLES Edited Result - Final [facility] Department [place] [address] from Last 3 Months or Most Recently Relevant to Health Maintenance Additional Health Concerns Infection Onset Date Last Indicated MDR gram neg/ESBL [address] [place] [address] Advance Directives For more information, please contact: [phone] * Full Code (Latest Code Status on File) Date Activated Date Inactivated Comments 04/26/2022 9:48 PM 05/03/2022 6:39 PM * Full Code Date Activated Date Inactivated Comments 2022 9:27 PM 02/14/2022 9:56 PM * Full Code Date Activated Date Inactivated Comments 12/13/2021 5:40 PM 12/21/2021 6:14 PM * Full Code Date Activated Date Inactivated Comments 01/22/2020 1:18 PM 01/22/2020 10:15 PM Care Teams Bin Tripper Operator Relationship Specialty Start Date End Date Jorge Luis Hill MD PCP - General 04/30/18
--- OUTSIDE RECORDS SUMMARY | 2024-04-01 18:38 | XMS_ITS | Continuity of Care Document ---
Author Organization [facility] Address [address] [place] [address] Phone Care Team Providers Care Executive Staff Assistant Name Role Phone Eleno Valenzuela MD Unavailable [...] Diagnoses Date Provider Providers Copied on Encounter [facility], [address] [place], [address], tel:[phone] [facility] No Information 4 Nicolas Smith [address] [place], [place], [address] , [place]. tel:[phone] Referring Provider: Lala Higgins, [place], [place], [address]. tel:[phone] PREV VISIT, EST, AGE 40-64 [facility], [address] [place], [address], tel:[phone] [facility] PHysical (chief complaint) Routine Medical ExamHypertension, UnspecifiedGenera lized anxiety disorderHeadacheR outine Medical Exam 0 4 Nicolas Smith [address] [facility] [place], [address] , [place]. tel:[phone] Referring Provider: Lala Higgins [address], [place], [place], [address]. tel:[phone] OFFICE/OUTPA TIENT VISIT, [facility], [address], [place], [place], [address], [place] tel:[phone] [facility] back pain (chief complaint)HT N (chief complaint)HL P (chief complaint)CO PD (chief complaint) Dietary surveillance and counselingCOPDLum bagoHypertension, UnspecifiedOther and unspecified hyperlipidemia 4 Nicolas Johansen. [address], [place], [place], [address] , [place]. tel:[phone] Referring Provider: Lala Higgins [address], [place], [place], [address]. tel:[phone] OFFICE/OUTPA TIENT VISIT, [facility], [address], [place], [place], [address], [place] tel:[phone] [facility] back pain (chief complaint)HT N (chief complaint)HL P (chief complaint)an xiety (chief complaint) Dietary surveillance and counselingHypoten tanja, UnspecifiedOther and unspecified hyperlipidemiaGen eralized anxiety disorderLumbago 4 Nicolas Smith [address], [place], [place], [address] , [place]. [phone] Referring Provider: Lala Higgins [address], [place], [place], [address]. tel:[phone] OFFICE/OUTPA TIENT VISIT, [facility], [address], [place], [place], [address], [place] tel:[phone] [facility] hypotension (chief complaint)ba ck pain (chief complaint)fa tigue (chief complaint)easton nd fx (chief complaint) Dietary surveillance and counselingHypoten tanja, UnspecifiedLumbag oFatigue / MalaiseClosed fracture of base of other metacarpal bone(s) 4 Nicolas Johansen. [address], [place], [place], [address] , [place]. tel:[phone] Referring Provider: L[address], [place], [place], [address]. tel:[phone] OFFICE/OUTPA TIENT VISIT, [facility], [address], [place], [place], [address], [place] tel:[phone] [facility] back pain (chief complaint)so re throat (chief complaint)easton nd pain (chief complaint) Dietary surveillance and counselingPain in joint involving handLumbagoThroat pain 4 Nicolas Smith [address], [place], [place], [address] , [place]. tel:[phone] Referring Provider: Lala Higgins [address], [place], [place], [address]. tel:[phone] OFFICE/OUTPA TIENT VISIT, [facility], [address], [place], [place], [address], [place] tel:[phone] [facility] depression (chief complaint)[place] PD (chief complaint)ba ck pain (chief complaint) Dietary surveillance and counselingLumbago COPDHypertension, UnspecifiedRESTLE SS LEGS SYNDROME 4 Nicolas Smith [address], [place], [place], [address] , [place]. tel:[phone] Referring Provider: Lala Higgins [address], [place], [place], [address]. tel:[phone] OFFICE/OUTPA TIENT VISIT, [facility], [address], [place], [place], [address], [place] tel:[phone] [facility] anxiety (chief complaint)ba ck pain (chief complaint)UT I (chief complaint)[place] PD (chief complaint) Dietary surveillance and counselingUrinary Tract InfectionGenerali zed anxiety disorderLumbagoCO PD 4 Nicolas Smith [address], [place], [place], [address] , [place]. tel:[phone] Referring Provider: Eleno Valenzuela, [address], [place], [place], [address]. tel:[phone] OFFICE/OUTPA TIENT VISIT, [facility], [address], [place], [place], [address], [place] tel:[phone] [facility] back pain (chief complaint)sw eet smell in urine (chief complaint)HT N (chief complaint)in somnia (chief complaint) Dietary surveillance and counselingLumbago Metabolic SyndromeHypertens ion, UnspecifiedInsomn ia, Other 3 Nicolas Johansen. [address], [place], [place], [address] , [place]. [phone] Referring Provider: Eleno Valenzuela, [address], [place], [place], [address]. tel:[phone] OFFICE/OUTPA TIENT VISIT, [facility], [address], [place], [place], [address], [place] tel:[phone] [facility] back pain (chief complaint)an xiety (chief complaint)fa tigue (chief complaint) Dietary surveillance and counselingLumbago Generalized anxiety disorderFatigue / Malaise 3 Nicolas Johansen. [address], [place], [place], [address] , [place]. tel:[phone] Referring Provider: Lala Higgins [address], [place], [place], [address]. tel:[phone] OFFICE/OUTPA TIENT VISIT, [facility], [address], [place], [place], [address], [place] tel:[phone] [facility] HTN (chief complaint)ba ck pain (chief complaint)an xiety (chief complaint) Dietary surveillance and counselingHyperte nsion, UnspecifiedLumbag oGeneralized anxiety disorder 3 Nicolas Johansen. [address], [place], [place], [address] , [place]. tel:[phone] Referring Provider: Eleno Valenzuela, [address], [place], [place], [address]. tel:[phone] OFFICE/OUTPA TIENT VISIT, [facility], [address], [place], [place], [address], tel:[phone] [facility] back pain (chief complaint)an xiety (chief complaint)HT N (chief complaint)[place] PD (chief complaint) Dietary surveillance and counselingLumbago Hypertension, UnspecifiedGenera lized anxiety disorderCOPD 3 Nicolas Johansen. [address], [place], [place], [address] , [place]. [phone] Referring Provider: Eleno Valenzuela, [address], [place], [place], [address]. tel:[phone] OFFICE/OUTPA TIENT VISIT, [facility], [address], [place], [place], [address], [place] tel:[phone] [facility] otalgaia (chief complaint)ba ck pain (chief complaint)an xiety (chief complaint)HT N (chief complaint)sl eep apnea (chief complaint) Dietary surveillance and counselingOther acute otitis externaHypertensi on, UnspecifiedGenera lized anxiety disorderSleep Apnea 3 Nicolas Johansen. [address], [place], [place], [address] , [place]. [phone] Referring Provider: Eleno Valenzuela, [address], [place], [place], [address]. tel:[phone] OFFICE/OUTPA TIENT VISIT, [facility], [address], [place], [place], [address], [place] tel:[phone] [facility] lumbago (chief complaint)pr eDM (chief complaint)HL P (chief complaint)an xiety (chief complaint)fa tigue (chief complaint) Dietary surveillance and counselingSleep ApneaLumbagoMetab olic SyndromeOther and unspecified hyperlipidemia 3 Nicolas Johansen. [address], [place], [place], [address] , [place]. tel:[phone] Referring Provider: Lala Higgins [address], [place], [place], [address]. tel:[phone] PREV VISIT, EST, AGE 40-64 [facility], [address], [place], [place], [address], [place] tel:[phone] [facility] Physical (chief complaint) Routine Medical ExamDietary surveillance and counselingLumbago Routine Medical Exam 3 Nicolas Johansen. [address], [place], [place], [address] , [place]. tel:[phone] Referring Provider: Eleno Valenzuela, [address], [place], [place], [address]. tel:[phone] OFFICE/OUTPA TIENT VISIT, [facility], [address], [place], [place], [address], [place] tel:[phone] [facility] back pain (chief complaint)ri ght side swelling (chief complaint) Dietary surveillance and counselingLumbago Enlargement of lymph nodesViral Infection, Unspecified 3 Nicolas Johansen. [address], [place], [place], [address] , [place]. tel:[phone] Referring Provider: Lala Higgins [address], [place], [place], [address]. tel:[phone] OFFICE/OUTPA TIENT VISIT, [facility], [address], [place], [place], [address], [place] tel:[phone] [facility] COPD (chief complaint)GE RD (chief complaint)De pression (chief complaint)it saw (chief complaint) Dietary surveillance and counselingLumbago Hypertension, UnspecifiedGenera lized anxiety disorderCOPD 3 Nicolas Johansen. [address], [place], [place], [address] , [place]. tel:[phone] Referring Provider: Lala Higgins [address], [place], [place], [address]. tel:[phone] OFFICE/OUTPA TIENT VISIT, [facility], [address], [place], [place], [address], [place] tel:[phone] [facility] back pain (chief complaint)an xiety (chief complaint)El bow pain (chief complaint) LumbagoGeneralize d anxiety disorderDietary surveillance and counselingPain in joint involving upper arm 3 Nicolas Johansen. [address], [place], [place], [address] , [place]. tel:[phone] Referring Provider: Lala [address], [place], [place], [address]. tel:[phone] OFFICE/OUTPA TIENT VISIT, [facility], [address], [place], [place], [address], [place] tel:[phone] [facility] back pain (chief complaint)an xiety (chief complaint)di zziness (chief complaint) Dietary surveillance and counselingLumbago Generalized anxiety disorderDizziness Anal and rectal polyp 3 Nicolas Johansen. [address], [place], [place], [address] , [place]. [phone] Referring Provider: Lala [address], [place], [place], [address]. tel:[phone] OFFICE/OUTPA TIENT VISIT, [facility], [address], [place], [place], [address], [place] tel:[phone] [facility] back pain (chief complaint)HL P (chief complaint)an xiety (chief complaint) Dietary surveillance and counselingHyperte nsion, UnspecifiedLumbag oGeneralized anxiety disorderOther and unspecified hyperlipidemia 3 Nicolas Johansen. [address], [place], [place], [address] , [place]. [phone] Referring Provider: Lala Higgins [address], [place], [place], [address]. tel:[phone] OFFICE/OUTPA TIENT VISIT, [facility], [address], [place], [place], [address], [place] tel:[phone] [facility] back pain (chief complaint)HL P (chief complaint)an xiety (chief complaint) Dietary surveillance and counselingLumbago Generalized anxiety disorderOther and unspecified hyperlipidemiaHyp ertension, Unspecified 2 Nicolas Johansen. [address], [place], [place], [address] , [place]. tel:[phone] Referring Provider: Eleno Valenzuela, [address], [place], [place], [address]. tel:[phone] OFFICE/OUTPA TIENT VISIT, [facility], [address], [place], [place], [address], [place] tel:[phone] [facility] back pain (chief complaint)an xiety (chief complaint)fa ll (chief complaint)HL P (chief complaint)he adache (chief complaint) Dietary surveillance and counselingOther and unspecified hyperlipidemiaHea dacheLumbagoGener alized anxiety disorderInfluenza Vaccine 2 Nicolas Johansen. [address], [place], [place], [address] , [place]. tel:[phone] Referring Provider: Eleno Valenzuela [address], [place], [place], [address]. tel:[phone] OFFICE/OUTPA TIENT VISIT, [facility], [address], [place], [place], [address], [place] tel:[phone] [facility] insomnia (chief complaint)ba ck pain (chief complaint)an xiety (chief complaint) Dietary surveillance and counselingHyperte nsion, UnspecifiedInsomn ia, OtherLumbagoCOPD 2 Nicolas Johansen. [address], [place], [place], [address] , [place]. tel:[phone] Referring Provider: Lala Higgins [address], [place], [place], [address]. tel:[phone] OFFICE/OUTPA TIENT VISIT, EST [facility], [address], [place], [place], [address], [place] tel:[phone] [facility] back pain (chief complaint)di zziness (chief complaint)fa tigue (chief complaint)hy pertension (chief complaint) Dietary surveillance and counselingHeadach eMajor depressive affective disorder, single episode, mild degreeFatigue / MalaiseLumbagoDiz ziness 2 Nicolas Johansen. [address] [place], [address] , [place]. tel:[phone] Family History Family Member Type Diagnosis Age At Onset Father Problem (finding) Hypertension Father Problem (finding) Alzheimer's Disease Father Problem (finding) Stroke Mother Problem (finding) Stroke Mother Problem (finding) Hypertension Immunizations Vaccine Date Status Comments Flu (split) (3 yrs or older) administered Source: New Immunization Record Payers Payer name Insurance type Covered libertarian ID Authoriza tion(s) No Information Social History [...]
[2024-04-01 18:39] VITALS: BP 111/75; PULSE 109; RESP 20; TEMP 36.3; O2SAT 98
[2024-04-01 23:45] VITALS: BP 128/89; PULSE 101; RESP 18; O2SAT 97
--- OUTSIDE RECORDS SUMMARY | 2024-04-01 23:59 | XMS_ITS | Encounter Summary ---
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
--- OUTSIDE RECORDS SUMMARY | 2024-04-01 23:59 | XMS_ITS | Clinical Summary ---
Author Organization [facility] Address [address] [place] [address] Phone Care Team Providers Care Humanities Coordinator Name Role Phone Jorge Luis Hill MD Primary Care Provider [phone] Allergies No known active allergies Medications aspirin [...] 120 tablet 2 Active cholecalciferol (VITAMIN D-3) 89755 unit tablet Take 1 tablet (50,000 Units [...] remission Assessment & Plan (02/13/2024 11:57 AM PRODUCT MANAGEMENT INTERN): Quit in November of 2023 She is due for annual CT chest in February of 2023 Chronic respiratory failure with hypoxia, on home O2 therapy ([facility]) 02/13/2024 Assessment & Plan (02/13/2024 11:58 AM PRODUCT MANAGEMENT INTERN): Continue supplemental oxygen for saturations 90% I have advised her to get a home pulse oximeter and bring it to her next visit for comparison She has a visit with our property claims manager upcoming and will likely have an echocardiogram. I have asked her to have this faxed over to our office for review as well Diabetic peripheral neuropat hy associated with type 2 diabetes mellitus ([facility]) 08/07/2023 Assessment & Plan (08/07/2023 [...] (01/03/2022): Added automatically from request for surgery [id number] Smoking 12/14/2021 Assessment & Plan (12/19/2021 11:55 [...] months Assessment & Plan (01/14/2022 11:03 AM PRODUCT MANAGEMENT INTERN): - Pt has completed 4 weeks of [...] tract. If no surgical plan, Resume diet. Assistant Front End Manager re supplements. Pain control with prn [...] disease) Assessment & Plan (02/13/2024 11:59 AM PRODUCT MANAGEMENT INTERN): Continue Symbicort twice daily Continue Spiriva twice [...] 12/13/2021 Assessment & Plan (02/13/2024 11:57 AM PRODUCT MANAGEMENT INTERN): Continue PAP with all sleep She is aware of the risks of uncorrected sleep apnea Assessment & Plan (12/21/2021 12:03 PM CDT): Exacerbated by BMI 42. Alert, oriented. Outpatient PSG Assessment & Plan (12/13/2021 11:24 AM CDT): Exacerbated by BMI 42. Alert, oriented. Morbid obesity with BMI of 40.0-44.9, adult 11/27 Assessment & Plan (12/14/2021 3:10 PM CDT): BMI 42.07, 104.3kg this admit. Assistant Front End Manager to see exterminator weight loss management goals with PCP, hx DM, HTN, ELIOT & may benefit from bariatric evaluation. Assessment & Plan (12/13/2021 10:25 AM CDT): BMI 42.07, 104.3kg this admit. Assistant Front End Manager to see exterminator weight loss management goals with PCP, hx DM, HTN, ELIOT & may benefit from bariatric evaluation. Pancreatic cyst 01/10/2020 Overview (01/10/2020): Added automatically from request for surgery [id number] Encounters Date Type Department Care Team Description 03/28/2024 Orders Only [facility] at [address] [place] [address] Jany Hernandez, BIKE SHOP MANAGER Pulmonary nodules (Primary Dx) 03/25/2024 12:27 PM PRODUCT MANAGEMENT INTERN - 03/25/2024 11:59 PM PRODUCT MANAGEMENT INTERN Hospital Encounter [facility] [address] [place] [address] Nicotine dependence, cigarettes, uncomplicated Discharge Disposition: Discharge to home or self care 03/22/2024 Telephone [facility] [address] [place] [address] Jany Marina RN 02/12/2024 3:00 PM PRODUCT MANAGEMENT INTERN Office Visit [facility] at [address] [place] [address] Jany Hernandez NP Centrilobular emphysema [...] HYSTERECTOMY W/ BILATERAL SALPINGOOPHORECTOMY 02/27/1995 - 02/27/1996 FUEL CELL TECHNICIAN SHUNT INSERTION 02/27/2010 - 02/26/2011 COLONOSCOPY BRAIN [...] often do you attend chur ch or christianity services? Never 12/22/2021 Do you belong to any clubs o r organizations such as orthodox groups, unions, fraternal or athletic groups, or [...] place to sleep or slept in a prison (including now)? No 12/22/2021 Personal Safety Answer Date Recorded Getting School Help Needed Denies 02/11 Comments No Sex and Gender Information Value Date Recorded Sex Assigned at Not on file Legal Sex Female 1:34 AM PRODUCT MANAGEMENT INTERN Gender Identity Not on file Sexual Orientation Not on file Obstetrics History Last Filed Vital Signs Vital Sign Reading Time Taken Comments Blood Pressure 96/63 02/12/2024 2:42 PM PRODUCT MANAGEMENT INTERN Pulse 86 02/12/2024 2:42 PM PRODUCT MANAGEMENT INTERN Temperature 36.1 ??C (96.9 ??F) 02/12/2024 2:42 PM CS T Respiratory Rate 18 02/12/2024 2:42 PM PRODUCT MANAGEMENT INTERN Oxygen Saturation 92% 02/12/2024 2:42 PM PRODUCT MANAGEMENT INTERN Inhaled Oxygen Concentration - - Weight 85.3 kg (188 lb) 03/25/2024 12:44 PM PRODUCT MANAGEMENT INTERN Height 162.6 cm (5' 4 ) 03/25/2024 12:44 PM PRODUCT MANAGEMENT INTERN Body Mass Index 32.27 03/25/2024 12:44 PM PRODUCT MANAGEMENT INTERN Plan of Treatment Health Maintenance Due Date [...] Completed 12/15/2021 Medical Devices Implanted Type Area Director Of Vocational Training Device Identifier Shelf Expiration Date Model / Serial / Lot Shunt Implanted:Qty: 2 Shunt [employer] Ombu [place] Microvascular 3.5mm Ring Pin Protective Cover Jaw Assembly Latex Free [id number] - [id number] Implanted:Qty: 1 on 2022 by Ricci Shelton MD at [facility] Mandible [employer] NewsiT [employer] [id number] 04/12/2026 [id number] / / [id number] Nitro Craniomaxillofaci al 2mm Primary Reconstruction Customize Mandible Bebeto Plate Bone [id number] - [id number] Implanted:Qty: 1 on 2022 by Ricci Shelton MD at [facility] Mandible Álvaro Craniomaxillofacial [id number] / / Álvaro Craniomaxillofaci al Leibinger [place] 2 2.3mm 6mm Lock Cross Pin Maxillofacial [id number] - [id number] Implanted:Qty: 1 on 2022 by Ricci Shelton MD at [facility] Mandible Álvaro Craniomaxillofacial [id number] / / Álvaro Craniomaxillofaci al Leibinger [place] 2 2.3mm 8mm Lock Cross Pin Maxillofacial [id number] - [id number] Implanted:Qty: 2 on 2022 by Ricci Shelton MD at [facility] Mandible Álvaro Craniomaxillofacial [id number] / / Nitro Craniomaxillofaci al Leibinger [place] 2 2.3mm 12mm Lock Cross Pin Maxillofacial [id number] - [id number] Implanted:Qty: 3 on 2022 by Ricci Shelton MD at [facility] Mandible Nitro Craniomaxillofacial [id number] / / Álvaro Craniomaxillofaci al Leibinger [place] 2 2mm 6mm Self Tap Cross Pin Maxillofacial 50 - [id number] Implanted:Qty: 4 on 2022 by Ricci Shelton MD at [facility] Mandible Nitro Craniomaxillofacial 50- / / Nitro Craniomaxillofaci al Leibinger [place] 2 2mm 6mm Lock Cross Pin Maxillofacial Screw 50 - [id number] Implanted:Qty: 1 on 2022 by Ricci Shelton MD at [facility] Mandible Nitro Craniomaxillofacial 50 / / Explanted Type Area Director Of Vocational Training Device Identifier Shelf Expiration Date Model / Serial / Lot Nitro Craniomaxillofaci al Leibinger [place] 2 2mm 8mm Self Tap Cross Pin Maxillofacial 50 - [id number] Explanted:Qty: 4 on 2022 at [facility] Mandible Álvaro Craniomaxillofacial 50- / / Nitro Craniomaxillofaci al Leibinger [place] 2 2.3mm 8mm Self Tap Cross Pin Maxillofacial [id number] - [id number] Explanted:Qty: 1 on 2022 at [facility] Mandible Nitro Craniomaxillofacial [id number] / / [employer] Probe Doppler 17.4cm Standard Cuff Implantable 20mhz Latex Free Sterile Microvascular Anastomoses Carmen [id number] - [id number] Implanted:Qty: 1 on 2022 by Ricci Shelton MD at [facility] Explanted:Qty: 1 on 02/14/2022 by Marie Parr PA Right: Neck [facility] [id number] 10/27/2024 [id number] / / [id number] Procedures Procedure Name Priority Date/Time Associated Diagnosis Comments CT LUNG CANCER SCREENING Schedule Routine, Read Routine (OP Routine) 03/25/2024 12:46 PM PRODUCT MANAGEMENT INTERN Nicotine dependence, cigarettes, uncomplicated POCT HEMOGLOBIN A1C Routine 08/07/2023 3:17 PM CDT Type 2 diabetes mellitus with hyperglycemia, without long-term current use of insulin (CMS/HCC) (HCC) EGFR Routine 08/03/2023 1:59 PM CDT Osteoporosis, unspecified osteoporosis type, unspecified pathological fracture presence LIPID PANEL STAT 02/15/2022 2:00 PM PRODUCT MANAGEMENT INTERN HEPATITIS PANEL, ACUTE Routine 12/15/2021 11:19 PM CDT from Last 3 Months or Most Recently Relevant to Health Maintenance Results * CT Lung Cancer Screening (03/25/2024 12:46 PM PRODUCT MANAGEMENT INTERN) Anatomical Region Laterality Modality Chest N/A Computed Tomogra phy 03/26/2024 9:54 AM PRODUCT MANAGEMENT INTERN Narrative 03/26/2024 10:03 AM PRODUCT MANAGEMENT INTERN EXAM DESCRIPTION: ?? CT LUNG CANCER SCREENING [...] AM T: ??03/26/2024 10:03 AM Report ID: [id number] Reading Location: ??[id number] Procedure Note Angela Almita Adonis DO - [...] Almita Miller D.O. PS: PS Report ID: [id number] Reading Location: [place] [address] Ethan Leung MD IMG CT PROCEDURES Final [...] MD LAB BLOOD ORDERABLES Final Resu lt [facility] Department [place] [address] * (ABNORMAL) Lipid panel (02/15/2022 2:00 PM PRODUCT MANAGEMENT INTERN) Cholesterol 161 30 - 199 mg/dL [facility] [...] on 2017. Triglycerides 253(H) <=149 mg/dL [facility] Comment: Interpretive Data Ages < [...] on 2017. HDL 42 >=40 mg/dL [facility] Comment: Interpretive Data Ages < [...] 2017. LDL, calculated 68 <=129 mg/dL [facility] Comment: Interpretive Data Ages < [...] last revised on 2017. Chol/HDL ratio [address] [facility] Blood 02/15/2022 2:00 PM PRODUCT MANAGEMENT INTERN 02/15/2022 5:52 PM PRODUCT MANAGEMENT INTERN us Neri Loco MD LAB BLOOD ORDERABLES Fi nal Result [facility] [place] [address] * Hepatitis panel, acute (12/15/2021 11:19 PM CDT) Hep A IgM Nonreactive Nonreactive Comment: Interpretive Data: If Hep A IgM Ab is reported as Equivocal, a new sample should be drawn in two weeks for testing. Current interpretive data was last revised on 19. Hep B core IgM Nonreactive Nonreactive [facility] Comment: Interpretive Data If HepB Core IgM Ab is reported as Equivocal, a new sample should be drawn in two weeks for testing. Current interpretive data was last revised on 19. Hep C Ab Nonreactive Nonreactive [facility] Comment:Antibodies to HCV no t detected. Does NOT exclude the possibility of recent exposure to HCV. HepBsAg Nonreactive Nonreactive [facility] Blood 12/15/2021 11:1 9 PM CDT 12/16/2021 12:30 AM CDT us Orly Fine MD LAB MICROBIOLOGY - GENERAL O RDERABLES Edited Result - Final [facility] Department [place] [address] from Last 3 Months or Most Recently Relevant to Health Maintenance Additional Health Concerns Infection Onset Date Last Indicated MDR gram neg/ESBL 2022 2022 Insurance Advance Directives For more information, please contact: [phone] * Full Code (Latest Code Status on File) Date Activated Date Inactivated Comments 04/26/2022 9:48 PM 05/03/2022 6:39 PM * Full Code Date Activated Date Inactivated Comments 2022 9:27 PM 02/14/2022 9:56 PM * Full Code Date Activated Date Inactivated Comments 12/13/2021 5:40 PM 12/21/2021 6:14 PM * Full Code Date Activated Date Inactivated Comments 01/22/2020 1:18 PM 01/22/2020 10:15 PM Care Teams Humanities Coordinator Relationship Specialty Start Date End Date Jorge Luis Hill MD [facility] - General 04/30/18
--- OUTSIDE RECORDS SUMMARY | 2024-04-01 23:59 | XMS_ITS | Encounter Summary ---
Author Organization [facility] Address [address] [place] [address] Phone Care Team Providers Care Licensed Marriage And Family Therapist Name Role Phone Jorge Luis Hill MD Primary Care Provider [phone] Encounter Details Date Type Department Care Team (Late st Contact Info) Description 05/07/2022 Documentation [facility] ([facility]) - [facility] [address] [facility] 11th [place] [address] [place] [id number] Amadeo Bazzi MD [address] [place], [place] [id number] Social History Tobacco Use Types Packs/Day Years [...] How often do you attend chur or latter-day services? Never 12/22/2021 Do you belong to any clubs o r organizations such as restorationism groups, unions, fraternal or athletic groups, or [...] place to sleep or slept in a group home (including now)? No 12/22/2021 Comments No Sex and Gender Information Value Date Recorded Sex Assigned at Not on file Legal Sex Female 1:34 AM BRAND DESIGNER Gender Identity Not on file Sexual Orientation Not on file documented as of this encounter Plan of Treatment Not on file documented as of this encounter Visit Diagnoses Not on filedocumented in this encounter Additional Health Concerns Infection Onset Date Last Indicated Resolved Time MDR gram neg/ESBL 2022 2022 documented as of this encounter Care Teams Licensed Marriage And Family Therapist Relationship Specialty Start Date End Date Jorge Luis Hill MD PCP - General 04/30/18 documented as of this encounter
--- OUTSIDE RECORDS SUMMARY | 2024-04-01 23:59 | XMS_ITS | Referral Summary ---
Author Organization [facility] Address [address] [place] [address] Phone Care Team Providers Care Caterpillar Mechanic Name Role Phone Jorge Luis Hill MD Primary Care Provider [phone] Encounters Date Type Department Care Team Description 03/28/2024 Orders Only [facility] Pulmonary at [address] [place] [phone] Jany Hernandez NP Pulmonary nodules (Primary Dx) 03/25/2024 12:27 PM DIRECTOR OF CONSULTING SERVICES - 03/25/2024 11:59 PM DIRECTOR OF CONSULTING SERVICES Hospital Encounter [address] [address] Nicotine dependence, cigarettes, uncomplicated Discharge Disposition: Discharge to home or self care 03/22/[address] [address] Jany Marina RN 02/12/2024 3:00 PM DIRECTOR OF CONSULTING SERVICES Office Visit [facility] Pulmonary at [address] [place] [phone] Jany Hernandez NP Centrilobular emphysema (HCC) (Primary [...] 120 tablet 2 Active cholecalciferol (VITAMIN D-3) 28066 unit tablet Take 1 tablet (50,000 Units [...] remission Assessment & Plan (02/13/2024 11:57 AM DIRECTOR OF CONSULTING SERVICES): Quit in November of 2023 She is due for annual CT chest in February of 2023 Chronic respiratory failure with hypoxia, on home O2 therapy ([facility]) 02/13/2024 Assessment & Plan (02/13/2024 11:58 AM DIRECTOR OF CONSULTING SERVICES): Continue supplemental oxygen for saturations 90% I have advised her to get a home pulse oximeter and bring it to her next visit for comparison She has a visit with our pier master upcoming and will likely have an echocardiogram. I have asked her to have this faxed over to our office for review as well Diabetic peripheral neuropat hy associated with type 2 diabetes mellitus ([facility]) 08/07/2023 Assessment & Plan (08/07/2023 4:05 [...] (01/03/2022): Added automatically from request for surgery [id number] Smoking 12/14/2021 Assessment & Plan (12/19/2021 11:55 [...] months Assessment & Plan (01/14/2022 11:03 AM DIRECTOR OF CONSULTING SERVICES): - Pt has completed 4 weeks of [...] tract. If no surgical plan, Resume diet. Babysitter re supplements. Pain control with prn tylenol [...] disease) Assessment & Plan (02/13/2024 11:59 AM DIRECTOR OF CONSULTING SERVICES): Continue Symbicort twice daily Continue Spiriva twice [...] 12/13/2021 Assessment & Plan (02/13/2024 11:57 AM DIRECTOR OF CONSULTING SERVICES): Continue PAP with all sleep She is aware of the risks of uncorrected sleep apnea Assessment & Plan (12/21/2021 12:03 PM CDT): Exacerbated by BMI 42. Alert, oriented. Outpatient PSG Assessment & Plan (12/13/2021 11:24 AM CDT): Exacerbated by BMI 42. Alert, oriented. Morbid obesity with BMI of 40.0-44.9, adult 11/27 Assessment & Plan (12/14/2021 3:10 PM CDT): BMI 42.07, 104.3kg this admit. Babysitter to [facility] goals with PCP, hx DM, HTN, ELIOT & may benefit from bariatric evaluation. Assessment & Plan (12/13/2021 10:25 AM CDT): BMI 42.07, 104.3kg this admit. Babysitter to see [facility] weight loss management goals with PCP, hx DM, HTN, ELIOT & may benefit from bariatric evaluation. Pancreatic cyst 01/10/2020 Overview (01/10/2020): Added automatically from request for surgery [id number] Immunizations Name Administration Dates Next Due Influenza, [...] often do you attend chur ch or yazdanism services? Never 12/22/2021 Do you belong to [...] place to sleep or slept in a retirement (including now)? No 12/22/2021 Personal Safety Answer Date Recorded Getting School Help Needed Denies 02/11 Comments No Sex and Gender Information Value Date Recorded Sex Assigned at Not on file Legal Sex Female 1:34 AM DIRECTOR OF CONSULTING SERVICES Gender Identity Not on file Sexual Orientation Not on file Last Filed Vital Signs Vital Sign Reading Time Taken Comments Blood Pressure 96/63 02/12/2024 2:42 PM DIRECTOR OF CONSULTING SERVICES Pulse 86 02/12/2024 2:42 PM DIRECTOR OF CONSULTING SERVICES Temperature 36.1 ??C (96.9 ??F) 02/12/2024 2:42 PM CS T Respiratory Rate 18 02/12/2024 2:42 PM DIRECTOR OF CONSULTING SERVICES Oxygen Saturation 92% 02/12/2024 2:42 PM DIRECTOR OF CONSULTING SERVICES Inhaled Oxygen Concentration - - Weight 85.3 kg (188 lb) 03/25/2024 12:44 PM DIRECTOR OF CONSULTING SERVICES Height 162.6 cm (5' 4 ) 03/25/2024 12:44 PM DIRECTOR OF CONSULTING SERVICES Body Mass Index 32.27 03/25/2024 12:44 PM DIRECTOR OF CONSULTING SERVICES Plan of Treatment Not on file Medical Devices Implanted Type Area Metal Furniture Repairer Device Identifier Shelf Expiration Date Model / Serial / Lot Shunt Implanted:Qty: 2 Shunt Brain Synovis SpotBanks Haslet Microvascular 3.5mm Ring Pin Protective Cover Jaw Assembly Latex Free [id number] - [id number] Implanted:Qty: 1 on 2022 by Ricci Shelton MD at [facility] Mandible [employer]is [employer] ([employer]) Allian [id number] 04/12/2026 [id number] / / [id number] [place] Craniomaxillofaci al 2mm Primary Reconstruction Customize Mandible Bebeto Plate Bone [id number] - [id number] Implanted:Qty: 1 on 2022 by Ricci Shelton MD at [facility] Mandible Álvaro Craniomaxillofacial [id number] / / Álvaro Craniomaxillofaci al [place]inger [place] 2 2.3mm 6mm Lock Cross Pin Maxillofacial [id number] - [id number] Implanted:Qty: 1 on 2022 by Ricci Shelton MD at [facility] Mandible [place] Craniomaxillofacial [id number] / / Álvaro Craniomaxillofaci al [employer]inger [place] 2 2.3mm 8mm Lock Cross Pin Maxillofacial [id number] - [id number] Implanted:Qty: 2 on 2022 by Ricci Sheltno MD at [facility] Mandible Álvaro Craniomaxillofacial [id number] / / [place] Craniomaxillofaci al Leibinger [place] 2 2.3mm 12mm Lock Cross Pin Maxillofacial [id number] - [id number] Implanted:Qty: 3 on 2022 by Ricci Shelton MD at [facility] Mandible [place] Craniomaxillofacial [id number] / / [place] Craniomaxillofaci al [employer] [place] 2 2mm 6mm Self Tap Cross Pin Maxillofacial 50 - [id number] Implanted:Qty: 4 on 2022 by Ricci Shelton MD at [facility] Mandible Álvaro Craniomaxillofacial 50 / / [place] Craniomaxillofaci al [employer]inger [place] 2 2mm 6mm Lock Cross Pin Maxillofacial Screw 50 - [id number] Implanted:Qty: 1 on 2022 by Ricci Shelton MD at [facility] Mandible [place] Craniomaxillofacial 50 / / Explanted Type Area Metal Furniture Repairer Device Identifier Shelf Expiration Date Model / Serial / Lot [place] Craniomaxillofaci al Leibinger [place] 2 2mm 8mm Self Tap Cross Pin Maxillofacial 50 - [id number] Explanted:Qty: 4 on 2022 at [facility] Mandible [place] Craniomaxillofacial 50 / / [place] Craniomaxillofaci al Leibinger [place] 2 2.3mm 8mm Self Tap Cross Pin Maxillofacial [id number] - [id number] Explanted:Qty: 1 on 2022 at [facility] Mandible Álvaro Craniomaxillofacial [id number] / / [employer] Probe Doppler 17.4cm Standard Cuff Implantable 20mhz Latex Free Sterile Microvascular Anastomoses Burket [id number] - [id number] Implanted:Qty: 1 on 2022 by Ricci Shelton MD at [facility] Explanted:Qty: 1 on 02/14/2022 by Marie Parr PA Right: Neck [employer] [id number] 10/27/2024 [id number] / / [id number] Procedures Procedure Name Priority Date/Time Associated Diagnosis Comments CT LUNG CANCER SCREENING Schedule Routine, Read Routine (OP Routine) 03/25/2024 12:46 PM DIRECTOR OF CONSULTING SERVICES Nicotine dependence, cigarettes, uncomplicated POCT HEMOGLOBIN A1C Routine 08/07/2023 3:17 PM CDT Type 2 diabetes mellitus with hyperglycemia, without long-term current use of insulin (CMS/HCC) (HCC) EGFR Routine 08/03/2023 1:59 PM CDT Osteoporosis, unspecified osteoporosis type, unspecified pathological fracture presence LIPID PANEL STAT 02/15/2022 2:00 PM DIRECTOR OF CONSULTING SERVICES HEPATITIS PANEL, ACUTE Routine 12/15/2021 11:19 PM CDT from Last 3 Months or Most Recently Relevant to Health Maintenance Results * CT Lung Cancer Screening (03/25/2024 12:46 PM DIRECTOR OF CONSULTING SERVICES) Anatomical Region Laterality Modality Chest N/A Computed Tomogra phy 03/26/2024 9:54 AM DIRECTOR OF CONSULTING SERVICES Narrative 03/26/2024 10:03 AM DIRECTOR OF CONSULTING SERVICES EXAM DESCRIPTION: ?? CT LUNG CANCER SCREENING [...] AM T: ??03/26/2024 10:03 AM Report ID: [id number] Reading Location: ??[id number] Procedure Note Almita Miller DO - 03/26/2024 [...] Almita Miller D.O. PS: PS Report ID: [id number] Reading Location: [place] [address] Ethan Leung MD IMG CT PROCEDURES Final Result * (ABNORMAL) POCT hemoglobin A1c (08/07/2023 3:17 PM CDT) Pathologist [facility] Hemoglobin A1C, POC 5.9 % Capillary [...] MD LAB BLOOD ORDERABLES Final Resu lt [facility] Department [place] [address] * (ABNORMAL) Lipid panel (02/15/2022 2:00 PM DIRECTOR OF CONSULTING SERVICES) Cholesterol 161 30 - 199 mg/dL [facility] [...] revised on 2017. Triglycerides 253(H) <=149 mg/dL [facility] Comment: Interpretive Data Ages < or [...] 2017. HDL 42 >=40 mg/dL [facility] Comment: Interpretive Data Ages < or [...] LDL, calculated 68 <=129 mg/dL [facility] Comment: Interpretive Data Ages < or [...] 2017. Non-HDL Cholesterol 119 mg/dL [facility] Comment: Interpretive Data Ages < or [...] last revised on 2017. Chol/HDL ratio 4 [facility] Blood 02/15/2022 2:00 PM DIRECTOR OF CONSULTING SERVICES 02/15/2022 5:52 PM DIRECTOR OF CONSULTING SERVICES Neri Loco MD LAB BLOOD ORDERABLES Fi nal Result [facility] [place] [address] * Hepatitis panel, acute (12/15/2021 11:19 PM CDT) Hep A IgM Nonreactive Nonreactive Comment: Interpretive Data: If Hep A IgM Ab is reported as Equivocal, a new sample should be drawn in two weeks for testing. Current interpretive data was last revised on 19. Hep B core IgM Nonreactive Nonreactive [facility] Comment: Interpretive Data If HepB Core IgM Ab is reported as Equivocal, a new sample should be drawn in two weeks for testing. Current interpretive data was last revised on 19. Hep C Ab Nonreactive Nonreactive [facility] Comment:Antibodies to HCV no t detected. Does NOT exclude the possibility of recent exposure to HCV. HepBsAg Nonreactive Nonreactive [facility] Blood 12/15/2021 11:1 9 PM CDT 12/16/2021 12:30 AM CDT us Orly Fine MD LAB MICROBIOLOGY - GENERAL O RDERABLES Edited Result - Final [facility] [place] [address] from Last 3 Months or Most Recently Relevant to Health Maintenance Additional Health Concerns Infection Onset Date Last Indicated MDR gram neg/ESBL [address] [place] [address] Advance Directives For more information, please contact: [phone] * Full Code (Latest Code Status on File) Date Activated Date Inactivated Comments 04/26/2022 9:48 PM 05/03/2022 6:39 PM * Full Code Date Activated Date Inactivated Comments 2022 9:27 PM 02/14/2022 9:56 PM * Full Code Date Activated Date Inactivated Comments 12/13/2021 5:40 PM 12/21/2021 6:14 PM * Full Code Date Activated Date Inactivated Comments 01/22/2020 1:18 PM 01/22/2020 10:15 PM Care Teams Caterpillar Mechanic Relationship Specialty Start Date End Date Jorge Luis Hill MD PCP - General 04/30/18
--- OUTSIDE RECORDS SUMMARY | 2024-04-01 23:59 | XMS_ITS | Clinical Summary ---
Author Organization [facility] Address [address] [place] [address]. [place], [place] [id number] [place] [address] Care Team Providers Care Night Shift Manager Name Role Phone Jorge Luis Hill MD Primary Care Provider [phone] Allergies No known active allergies Medications rosuvastatin [...] capsule 2 Active vitamin D2, ergocalciferol , 16063 UNITS capsule 2 Active escitalopram 20 MG [...] Comments Blood Pressure 106/76 05/05/2021 12:15 PM CRA OFFICER Pulse 83 05/05/2021 12:15 PM CRA OFFICER Temperature 36.1 ??C (96.9 ??F) 05/05/2021 11:[address] Respiratory Rate 14 05/05/2021 12:15 PM CRA OFFICER Oxygen Saturation 94% 05/05/2021 12:15 PM CRA OFFICER Inhaled Oxygen Concentration - - Weight 108.4 kg (239 lb) 05/05/2021 10:03 AM CRA OFFICER Height 157.5 cm (5' 2 ) 05/05/2021 10:03 AM CRA OFFICER Body Mass Index 43.71 05/05/2021 10:03 AM CRA OFFICER Plan of Treatment Health Maintenance Due Date [...] Diagnosis Comments COLONOSCOPY Routine 05/05/2021 11:05 AM CRA OFFICER from Last 3 Months or Most Recently Relevant to Health Maintenance Results * Colonoscopy (05/05/2021 11:05 AM CRA OFFICER) Narrative Estuardo Wells MD - 05/05/2021 11:05 AM CRA OFFICER Estuardo Wells MD ? 05/05/2021 12:05 PM [...] the left lateral decubitus position, the Olympus [id number] ??colonoscope was introduced into the rectum and [...] of liver 04-14-2021 but was inpatient at [place] - Will check to see if she had CT scan while inpatient Thank you for allowing me to care for your patient. She will follow-up with Dr. Hill as needed. Estuardo Wells M.D. Cc: Dr. Nithin Hill us Estuardo Wells MD GI PROCEDURE ORDERABLES Fin al Result from Last 3 Months or Most Recently Relevant to Health Maintenance Insurance [employer] Care Teams Night Shift Manager Relationship Specialty Start Date End Date Jorge Luis Hill MD [address] [place] [id number] PCP - General FAMILY PRACTICE 11/25/19
--- OUTSIDE RECORDS SUMMARY | 2024-04-02 | XMS_ITS | Clinical Summary ---
Author Organization [facility] Address [address] [place] [address] Phone Care Team Providers Care Cyber Legal Advisor Name Role Phone Jorge Luis Hill MD Primary Care Provider [phone] Allergies No known active allergies Medications Medication [...] Comments Influenza Vaccine (#1) 2023 Care Teams Cyber Legal Advisor Relationship Specialty Start Date End Date Jorge Luis Hill MD PCP - General Family Medicine 08/28/18
--- OUTSIDE RECORDS SUMMARY | 2024-04-02 | XMS_ITS | Patient Health Summary ---
Author Organization [facility] Address [address] [place] [address] Care Team Providers Care Clinical Review Nurse Name Role Phone Jorge Luis Hill MD Primary Care Provider [phone] Note from [facility],non-owned Affiliates and Associated Physician Practices is amultiple site organization consisting of ambulatory clinics and hospital sitesin [place], [place], [place] and [place]. This disclosure is being madepursuant to the Care Everywhere program and may not contain all information available regarding this patient. Last updated 17.[facility] Allergies No known active allergies Medications [...] (one) tablet by mouth every morning * icfswjn-aisdlkdziex-jgvwbrpfai (Breztri Aerosphere) 160-9-4.8 MCG/ACT inhaler (Started 11/30/2022) [...] HCl (Narcan) 4 MG/0.1ML nasal spray(Started 05/19/2022) [place] 40 (forty) sprays into the nose [...] Comments Blood Pressure 155/92 03/24/2023 2:17 PM BRAZING MACHINE OPERATOR AUTOMATIC Pulse 101 03/24/2023 2:17 PM BRAZING MACHINE OPERATOR AUTOMATIC Temperature 36.7 ??C (98 ??F) 03/24/2023 2:17 PM BRAZING MACHINE OPERATOR AUTOMATIC Respiratory Rate 18 03/24/2023 2:17 PM BRAZING MACHINE OPERATOR AUTOMATIC Oxygen Saturation 96% 03/24/2023 2:17 PM BRAZING MACHINE OPERATOR AUTOMATIC Inhaled Oxygen Concentration - - Weight 84.3 kg (185 lb 12.8 oz) 03/24/2023 2:17 PM BRAZING MACHINE OPERATOR AUTOMATIC Height 162.6 cm (5' 4 ) 03/24/2023 2:17 PM BRAZING MACHINE OPERATOR AUTOMATIC Body Mass Index 31.89 03/24/2023 2:17 PM BRAZING MACHINE OPERATOR AUTOMATIC Procedures * XR SHUNT SERIES(Performed 03/24/2023) Performed for History of brain shunt * XR LUMBAR SPINE 4VW OR MORE(Performed 03/24/2023) Performed for Chronic back pain greater than 3 months duration * TN FINE NEEDLE ASPIRATION(Performed 03/15/2023) Performed for Multinodular goiter, Thyroid nodule * FINE NEEDLE ASPIRATION (STL)(Performed 03/15/2023) Performed for Multinodular goiter, Thyroid nodule Results * XR SHUNT SERIES (03/24/2023 4:02 PM BRAZING MACHINE OPERATOR AUTOMATIC) Anatomical Region Laterality Modality Abdomen, Pelvis Radiographic Yani ging 03/26/2023 9:35 AM BRAZING MACHINE OPERATOR AUTOMATIC Impressions 03/26/2023 10:05 PM BRAZING MACHINE OPERATOR AUTOMATIC IMPRESSION: Intact left parietal approach ventriculoperitoneal shunt. Report dictated by Jamil Martin MD, (vice president of advertising). I, Petey Garnett MD have personally reviewed and interpreted this examination/study. > Interpreting Provider: Petey Garnett MD on 03/26/2023 10:05 PM Narrative 03/26/2023 10:05 PM BRAZING MACHINE OPERATOR AUTOMATIC PROCEDURE: ??XR SHUNT SERIES, DATE/TIME OF EXAM: ??03/24/2023 4:02 PM, LOCATION ??[facility] INDICATION: Z98.2: History of brain shunt [...] DATE/TIME OF EXAM: 03/24/2023 4:02 PM, LOCATION [facility] INDICATION: Z98.2: History of brain shunt [...] shunt. Report dictated by Jamil Martin MD, (vice president of advertising). I, Petey Garnett MD have personally reviewed and interpreted this examination/study. > Interpreting Provider: Petey Garnett MD on 03/26/2023 10:05 PM Giovanni Rowley MD DIAGNOSTIC IMAGING O RDERABLES * XR LUMBAR SPINE 4VW OR MORE (03/24/2023 4:02 PM BRAZING MACHINE OPERATOR AUTOMATIC) Anatomical Region Laterality Modality Spine Radiographic Yani ging 03/26/2023 9:29 AM BRAZING MACHINE OPERATOR AUTOMATIC Impressions 03/26/2023 10:06 PM BRAZING MACHINE OPERATOR AUTOMATIC Impression: There are 5 nonrib-bearing vertebral bodies [...] 03/26/2023 10:06 PM Narrative 03/26/2023 10:06 PM BRAZING MACHINE OPERATOR AUTOMATIC PROCEDURE: ??XR LUMBAR SPINE 4VW OR MORE [...] TN FINE NEEDLE ASPIRATION (03/15/2023 3:42 PM BRAZING MACHINE OPERATOR AUTOMATIC) Narrative Bridger Qureshi APRN-CNP - 03/15/2023 3:42 PM BRAZING MACHINE OPERATOR AUTOMATIC Bridger Qureshi APRN-CNP ? 03/15/2023 ??3:45 PM [...] Time: 1030 ??Stop Time: 1130 Bridger Qureshi BLASTING ENTRYMAN-DEPARTMENT CLERK PROCEDURE/ MINOR SURGICAL ORDERABLES * FINE NEEDLE ASPIRATION (STL) (03/15/2023 11:30 AM BRAZING MACHINE OPERATOR AUTOMATIC) Case Report Medical Cytology Report ? Case: [id number] ? Authorizing Provider: ??Bridger Qureshi, ? Collected: ? 03/15/2023 11:30 AM ? BLASTING ENTRYMAN-DEPARTMENT CLERK ? Ordering Location: ? [facility] - Otolaryngology ?? Received: ?03/15/2023 01:46 PM ? Pathologist: ? Ronak Kilpatrick MD ? Specimen: ?Neck Mass, left thyroid nodule TR4 ? 03/17/2023 12:43 PM [facility] Specimen Adequacy Unsatisfactory cellularity for evaluation. 03/17/2023 12:43 PM [facility] Final Diagnosis Thyroid, left nodule, US-FNA: - Benign (TBSRTC Category II), colloid nodule (see description) - Adequacy: Colloid only 03/17/2023 12:43 PM [facility] Clinical History The patient is a 58 year-old female with history of thyroid nodule that underwent FNA. 03/17/2023 12:43 PM [facility] Gross Description 1 Thinprep Pap stained slide from a 25 cc collection fluid 03/17/2023 12:43 PM [facility] Microscopic Description A ThinPrep slide is essentially devoid of follicular epithelium. However colloid is present, suggestive of a benign colloid nodule. 03/17/2023 12:43 PM [facility] Pathologist Location at [facility] 03/17/2023 12:43 PM [facility] Disclaimer The performance characteristics of all immunohistochemical and indirect immunofluorescence stains (if any) cited in this report were determined by the Histopathology Laboratory of [facility]. Some of these tests rely on the use of analyte-specific reagents and are subject to specific labeling requirements by the [place] Food and Drug Administration. Such tests were developed by the Histology Laboratory of [facility] and have not been cleared or approved [...] the attending (teaching) pathologist. 03/17/2023 12:43 PM [facility] Embedded Images 03/17/2023 12:43 PM [facility] Pathology/Cytolo gy MASS OF NECK / Unknown Collection / Unknown 03/15/2023 11:30 AM BRAZING MACHINE OPERATOR AUTOMATIC 03/15/2023 1:46 PM BRAZING MACHINE OPERATOR AUTOMATIC Bridger Qureshi BLASTING ENTRYMAN-DEPARTMENT CLERK LAB - PATH OLOGY/CYTOLOGY ORDERABLES [facility] [address] [place] [address], [facility] [phone] Care Teams Clinical Review Nurse Relationship Specialty Start Date End Date Jorge Luis Hill MD [address] [facility] [address] [place] [address] PCP - General 02/10/17
--- OUTSIDE RECORDS SUMMARY | 2024-04-02 | XMS_ITS | Continuity of Care Document ---
Author Organization [facility] Address [address] [place] [address] [place] [address] Phone Care Team Providers Care Ticket Sales Supervisor Name Role Phone Eleno Valenzuela MD Unavailable Unavailable Allergies, Adverse Reactions, Alerts Substance Reaction Status Criticality No Known Allergies Active No Inform ation Medications Medication Instructions Dosage Effective Dates (start - stop) Status Comments Percocet 10 mg-325 mg tablet take 1 tablet by oral route 3 times every day as needed 1 tablet - Active avoid drivin gor operate machines Xanax 1 mg tablet one tab po BID - Act fuentes avoid drivign or operate machines, for 3 months supply lovastatin 20 mg tablet take 1 tablet (20MG) by oral route every day with the evening meal 20 MG - Active Atrovent HFA 17 mcg/actuation Aerosol Inhaler inhale 2 puff (34MCG) by inhalation route 4 times every day 34 MCG - Active losartan 100 mg tablet take 1 tablet (100MG) by oral route every day 100 MG - Active Imitrex 100 mg tablet take 1 tablet (100MG) by oral route 100 MG - Active take one at onset of headache, may repeat x one in two hours, max 2/24 hours Lasix 40 mg tablet take 1 tablet (40MG) by oral route 2 times every day 40 MG - Active metformin ER 750 mg tablet,extended release 24 hr take 1 tablet (750MG) by oral route every day with the evening meal 750 MG - Active DuoNeb 0.5 mg-3 mg(2.5 mg base)/3 mL Neb Solution inhale 3 milliliter by nebulization route 4 times every day - Active Mirapex 0.5 mg tablet take 1 tablet (0.5MG) by oral route every bedtime 0.5 MG - Active meclizine 25 mg tablet take 1 tablet (25MG) by oral route 3 times every day as needed 25 MG - Active Robaxin-750 750 mg tablet take 1 tablet (750MG) by oral route every 6 hours as needed 750 MG - Active avoid driving or operate machines, PRN for pain ProAir HFA 90 mcg/actuation Aerosol Inhaler inhale 2 puff by inhalation route every 4 - 6 hours as needed - Active Advair Diskus 250 mcg-50 mcg/dose for Inhalation inhale 1 puff by inhalation route 2 times every day in the morning and evening approximately 12 hours apart 1.00 puff - Active potassium chloride ER 20 mEq tablet,extended release(part/debbie t) take 1 tablet (20MEQ) by oral route every day with food 20 MEQ - Active Coreg 12.5 mg tablet take 1 tablet (12.5MG) by oral route 2 times every day with food 12.5 MG - Active Zoloft 100 mg tablet take 2 Tablet (200MG) by oral route every day 200 MG - Active Singulair 10 mg tablet take 1 tablet (10MG) by oral route every day in the evening 10 MG - Active Nexium 40 mg capsule,delayed release take 1 capsule (40MG) by oral route every day 40 MG - Active trazodone 50 mg tablet take 1 tablet (50MG) by oral route every bedtime after meals 50 MG - Active Nuvigil 150 mg tablet take 1 tablet (150MG) by oral route every day in the morning 150 MG - Active Procedures Procedure Date PREV VISIT, [...] Diagnoses Date Provider Providers Copied on Encounter [facility], [address] [place], [place], [address], tel:[phone] [facility] No Information 4 Nicolas Smith [address] [place], [place], [address] , [place]. tel:[phone] Referring Provider: Lala Higgins, [place], [place], [address]. tel:[phone] PREV VISIT, EST, AGE 40-64 [facility], [address] [place], [address], tel:[phone] [facility] PHysical (chief complaint) Routine Medical ExamHypertension, UnspecifiedGenera lized anxiety disorderHeadacheR outine Medical Exam 0 4 Nicolas Smith [address] [facility] [place], [address] , [place]. tel:[phone] Referring Provider: Lala Higgins [address], [place], [place], [address]. tel:[phone] OFFICE/OUTPA TIENT VISIT, [facility], [address], [place], [place], [address], [place] tel:[phone] [facility] back pain (chief complaint)HT N (chief complaint)HL P (chief complaint)[place] (chief complaint) Dietary surveillance and counselingCOPDLum bagoHypertension, UnspecifiedOther and unspecified hyperlipidemia 4 Nicolas Johansen. [address], [place], [place], [address] , [place]. tel:[phone] Referring Provider: Lala Higgins [address], [place], [place], [address]. tel:[phone] OFFICE/OUTPA TIENT VISIT, [facility], [address], [place], [place], [address], [place] tel:[phone] [facility] back pain (chief complaint)HT N (chief complaint)HL P (chief complaint)an xiety (chief complaint) Dietary surveillance and counselingHypoten tanja, UnspecifiedOther and unspecified hyperlipidemiaGen eralized anxiety disorderLumbago 4 Nicolas Smiht [address], [place], [place], [address] , [place]. [phone] Referring Provider: Lala Higgins [address], [place], [place], [address]. tel:[phone] OFFICE/OUTPA TIENT VISIT, [facility], [address], [place], [place], [address], [place] tel:[phone] [facility] hypotension (chief complaint)ba ck pain (chief complaint)fa tigue (chief complaint)easton nd fx (chief complaint) Dietary surveillance and counselingHypoten tanja, UnspecifiedLumbag oFatigue / MalaiseClosed fracture of base of other metacarpal bone(s) 4 Nicolas Johansen. [address], [place], [place], [address] , [place]. tel:[phone] Referring Provider: [address], [place], [place], [address]. tel:[phone] OFFICE/OUTPA TIENT VISIT, [facility], [address], [place], [place], [address], [place] tel:[phone] [facility] back pain (chief complaint)so re throat (chief complaint)easton nd pain (chief complaint) Dietary surveillance and counselingPain in joint involving handLumbagoThroat pain 4 Nicolas Smith [address], [place], [place], [address] , [place]. tel:[phone] Referring Provider: Lala Higgins [address], [place], [place], [address]. tel:[phone] OFFICE/OUTPA TIENT VISIT, [facility], [address], [place], [place], [address], [place] tel:[phone] [facility] depression (chief complaint)[place] (chief complaint)ba ck pain (chief complaint) Dietary surveillance and counselingLumbago COPDHypertension, UnspecifiedRESTLE SS LEGS SYNDROME 4 Nicolas Smith [address], [place], [place], [address] , [place]. tel:[phone] Referring Provider: Lala Higgins [address], [place], [place], [address]. tel:[phone] OFFICE/OUTPA TIENT VISIT, [facility], [address], [place], [place], [address], [place] tel:[phone] [facility] anxiety (chief complaint)ba ck pain (chief complaint)UT I (chief complaint)[place] ([place] complaint) Dietary surveillance and counselingUrinary Tract InfectionGenerali zed anxiety disorderLumbagoCO PD 4 Nicolas Smith [address], [place], [place], [address] , [place]. tel:[phone] Referring Provider: Eleno Valenzuela, [address], [place], [place], [address]. tel:[phone] OFFICE/OUTPA TIENT VISIT, [facility], [address], [place], [place], [address], [place] tel:[phone] [facility] back pain (chief complaint)sw eet smell in urine (chief complaint)HT N (chief complaint)in somnia (chief complaint) Dietary surveillance and counselingLumbago Metabolic SyndromeHypertens ion, UnspecifiedInsomn ia, Other 3 Nicolas Johansen. [address], [place], [place], [address] , [place]. [phone] Referring Provider: Eleno Valenzuela, [address], [place], [place], [address]. tel:[phone] OFFICE/OUTPA TIENT VISIT, [facility], [address], [place], [place], [address], [place] tel:[phone] [facility] back pain (chief complaint)an xiety (chief complaint)fa tigue (chief complaint) Dietary surveillance and counselingLumbago Generalized anxiety disorderFatigue / Malaise 3 Nicolas Johansen. [address], [place], [place], [address] , [place]. tel:[phone] Referring Provider: Lala Higgins [address], [place], [place], [address]. tel:[phone] OFFICE/OUTPA TIENT VISIT, [facility], [address], [place], [place], [address], [place] tel:[phone] [facility] HTN (chief complaint)ba ck pain (chief complaint)an xiety (chief complaint) Dietary surveillance and counselingHyperte nsion, UnspecifiedLumbag oGeneralized anxiety disorder 3 Nicolas Johansen. [address], [place], [place], [address] , [place]. tel:[phone] Referring Provider: Eleno Valenzuela, [address], [place], [place], [address]. tel:[phone] OFFICE/OUTPA TIENT VISIT, [facility], [address], [place], [place], [address], tel:[phone] [facility] back pain (chief complaint)an xiety (chief complaint)HT N (chief complaint)[place] (chief complaint) Dietary surveillance and counselingLumbago Hypertension, UnspecifiedGenera lized anxiety disorderCOPD 3 Nicolas Johansen. [address], [place], [place], [address] , [place]. [phone] Referring Provider: Eleno Valenzuela, [address], [place], [place], [address]. tel:[phone] OFFICE/OUTPA TIENT VISIT, [facility], [address], [place], [place], [address], [place] tel:[phone] [facility] otalgaia (chief complaint)ba ck pain (chief complaint)an xiety (chief complaint)HT N (chief complaint)sl eep apnea (chief complaint) Dietary surveillance and counselingOther acute otitis externaHypertensi on, UnspecifiedGenera lized anxiety disorderSleep Apnea 3 Nicolas Johansen. [address], [place], [place], [address] , [place]. [phone] Referring Provider: Eleno Valenzuela, [address], [place], [place], [address]. tel:[phone] OFFICE/OUTPA TIENT VISIT, [facility], [address], [place], [place], [address], [place] tel:[phone] [facility] lumbago (chief complaint)pr eDM (chief complaint)HL P (chief complaint)an xiety (chief complaint)fa tigue (chief complaint) Dietary surveillance and counselingSleep ApneaLumbagoMetab olic SyndromeOther and unspecified hyperlipidemia 3 Nicolas Johansen. [address], [place], [place], [address] , [place]. tel:[phone] Referring Provider: Lala Higgins [address], [place], [place], [address]. tel:[phone] PREV VISIT, EST, AGE 40-64 [facility], [address], [place], [place], [address], [place] tel:[phone] [facility] Physical (chief complaint) Routine Medical ExamDietary surveillance and counselingLumbago Routine Medical Exam 3 Nicolas Johansen. [address], [place], [place], [address] , [place]. tel:[phone] Referring Provider: Eleno Valenzuela, [address], [place], [place], [address]. tel:[phone] OFFICE/OUTPA TIENT VISIT, [facility], [address], [place], [place], [address], [place] tel:[phone] [facility] back pain (chief complaint)ri ght side swelling (chief complaint) Dietary surveillance and counselingLumbago Enlargement of lymph nodesViral Infection, Unspecified 3 Nicolas Johansen. [address], [place], [place], [address] , [place]. tel:[phone] Referring Provider: Lala Higgins [address], [place], [place], [address]. tel:[phone] OFFICE/OUTPA TIENT VISIT, [facility], [address], [place], [place], [address], [place] tel:[phone] [facility] COPD (chief complaint)GE RD (chief complaint)De pression (chief complaint)it saw (chief complaint) Dietary surveillance and counselingLumbago Hypertension, UnspecifiedGenera lized anxiety disorderCOPD 3 Nicolas Johansen. [address], [place], [place], [address] , [place]. tel:[phone] Referring Provider: Lala Higgins [address], [place], [place], [address]. tel:[phone] OFFICE/OUTPA TIENT VISIT, [facility], [address], [place], [place], [address], [place] tel:[phone] [facility] back pain (chief complaint)an xiety (chief complaint)El bow pain (chief complaint) LumbagoGeneralize d anxiety disorderDietary surveillance and counselingPain in joint involving upper arm 3 Nicolas Johansen. [address], [place], [place], [address] , [place]. tel:[phone] Referring Provider: L[address], [place], [place], [address]. tel:[phone] OFFICE/OUTPA TIENT VISIT, [facility], [address], [place], [place], [address], [place] tel:[phone] [facility] back pain (chief complaint)an xiety (chief complaint)di zziness (chief complaint) Dietary surveillance and counselingLumbago Generalized anxiety disorderDizziness Anal and rectal polyp 3 Nicolas Johansen. [address], [place], [place], [address] , [place]. [phone] Referring Provider: L[address], [place], [place], [address]. tel:[phone] OFFICE/OUTPA TIENT VISIT, [facility], [address], [place], [place], [address], [place] tel:[phone] [facility] back pain (chief complaint)HL P (chief complaint)an xiety (chief complaint) Dietary surveillance and counselingHyperte nsion, UnspecifiedLumbag oGeneralized anxiety disorderOther and unspecified hyperlipidemia 3 Nicolas Joahnsen. [address], [place], [place], [address] , [place]. [phone] Referring Provider: Lala Higgins [address], [place], [place], [address]. tel:[phone] OFFICE/OUTPA TIENT VISIT, [facility], [address], [place], [place], [address], [place] tel:[phone] [facility] back pain (chief complaint)HL P (chief complaint)an xiety (chief complaint) Dietary surveillance and counselingLumbago Generalized anxiety disorderOther and unspecified hyperlipidemiaHyp ertension, Unspecified 2 Nicolas Johansen. [address], [place], [place], [address] , [place]. tel:[phone] Referring Provider: Eleno Valenzuela, [address], [place], [place], [address]. tel:[phone] OFFICE/OUTPA TIENT VISIT, [facility], [address], [place], [place], [address], [place] tel:[phone] [facility] back pain (chief complaint)an xiety (chief complaint)fa ll (chief complaint)HL P (chief complaint)he adache (chief complaint) Dietary surveillance and counselingOther and unspecified hyperlipidemiaHea dacheLumbagoGener alized anxiety disorderInfluenza Vaccine 2 Nicolas Johansen. [address], [place], [place], [address] , [place]. tel:[phone] Referring Provider: Eleno Valenzuela [address], [place], [place], [address]. tel:[phone] OFFICE/OUTPA TIENT VISIT, [facility], [address], [place], [place], [address], [place] tel:[phone] [facility] insomnia (chief complaint)ba ck pain (chief complaint)an xiety (chief complaint) Dietary surveillance and counselingHyperte nsion, UnspecifiedInsomn ia, OtherLumbagoCOPD 2 Nicolas Johansen. [address], [place], [place], [address] , [place]. tel:[phone] Referring Provider: Lala Higgins [address], [place], [place], [address]. tel:[phone] OFFICE/OUTPA TIENT VISIT, EST [facility], [address], [place], [place], [address], [place] tel:[phone] [facility] back pain (chief complaint)di zziness (chief complaint)fa tigue (chief complaint)hy pertension (chief complaint) Dietary surveillance and counselingHeadach eMajor depressive affective disorder, single episode, mild degreeFatigue / MalaiseLumbagoDiz ziness 2 Nicolas Johansen. [address] [place] [place], [address] , [place]. tel:[phone] Family History Family Member Type Diagnosis Age At Onset Father Problem (finding) Hypertension Father Problem (finding) Alzheimer's Disease Father Problem (finding) Stroke Mother Problem (finding) Stroke Mother Problem (finding) Hypertension Immunizations Vaccine Date Status Comments Flu (split) (3 yrs or older) administered Source: New Immunization Record Payers Payer name Insurance type Covered democrat ID Authoriza tion(s) No Information Social History [...]
--- OUTSIDE RECORDS SUMMARY | 2024-04-02 | XMS_ITS | Clinical Summary ---
Author Organization [facility] [employer] Address [address] [place] [address] Care Team Providers Care District Manager Major Accounts Sales Name Role Phone Jorge Luis Hill MD Primary Care Provider [phone] Source Comments [facility] [employer],non-owned Affiliates and Associated Physician Practices is amultiple site organization consisting of ambulatory clinics and hospital sitesin [place], [place], [place] and [place]. This disclosure is being madepursuant to the Care Everywhere program and may not contain all information available regarding this patient. Last updated 17.[facility] [employer] Allergies No known active allergies Medications * [...] naloxone HCl (Narcan) 4 MG/0.1ML nasal spray [place] 40 (forty) sprays into the nose as [...] Comments Blood Pressure 155/92 03/24/2023 2:17 PM COAL MINER Pulse 101 03/24/2023 2:17 PM COAL MINER Temperature 36.7 ??C (98 ??F) 03/24/2023 2:17 PM COAL MINER Respiratory Rate 18 03/24/2023 2:17 PM COAL MINER Oxygen Saturation 96% 03/24/2023 2:17 PM COAL MINER Inhaled Oxygen Concentration - - Weight 84.3 kg (185 lb 12.8 oz) 03/24/2023 2:17 PM COAL MINER Height 162.6 cm (5' 4 ) 03/24/2023 2:17 PM COAL MINER Body Mass Index 31.89 03/24/2023 2:17 PM COAL MINER Plan of Treatment Upcoming Encounters Date Type Department Care Team (Late st Contact Info) Description 05/31/2024 1:15 PM CDT Appointment [facility] [address] [place] [id number] Bridger Qureshi, INVESTIGATOR CLAIMS-EDGE BANDER HAND [address] [place] [address] Health Maintenance Due Date Last Done Comments [...] age to complete this topic Care Teams District Manager Major Accounts Sales Relationship Specialty Start Date End Date Jorge Luis Hill MD [address] [place] [address] PCP - General 02/10/17
--- OUTSIDE RECORDS SUMMARY | 2024-04-02 | XMS_ITS | Referral Summary ---
Author Organization [facility] [employer] Address [address] [place] [address] Care Team Providers Care Internist Medical Doctor Md Name Role Phone Jorge Luis Hill MD Primary Care Provider [phone] Source Comments [facility] [employer],non-owned Affiliates and Associated Physician Practices is amultiple site organization consisting of ambulatory clinics and hospital sitesin [place], [place], [place] and [place]. This disclosure is being madepursuant to the Care Everywhere program and may not contain all information available regarding this patient. Last updated 17.[facility] [employer] Allergies No known active allergies Medications * [...] naloxone HCl (Narcan) 4 MG/0.1ML nasal spray [place] 40 (forty) sprays into the nose as [...] Comments Blood Pressure 155/92 03/24/2023 2:17 PM CHILD WELFARE CASEWORKER Pulse 101 03/24/2023 2:17 PM CHILD WELFARE CASEWORKER Temperature 36.7 ??C (98 ??F) 03/24/2023 2:17 PM CHILD WELFARE CASEWORKER Respiratory Rate 18 03/24/2023 2:17 PM CHILD WELFARE CASEWORKER Oxygen Saturation 96% 03/24/2023 2:17 PM CHILD WELFARE CASEWORKER Inhaled Oxygen Concentration - - Weight 84.3 kg (185 lb 12.8 oz) 03/24/2023 2:17 PM CHILD WELFARE CASEWORKER Height 162.6 cm (5' 4 ) 03/24/2023 2:17 PM CHILD WELFARE CASEWORKER Body Mass Index 31.89 03/24/2023 2:17 PM CHILD WELFARE CASEWORKER Plan of Treatment Upcoming Encounters Date Type Department Care Team (Late st Contact Info) Description 05/31/2024 1:15 PM CDT Appointment [facility] [address] [place] [address] Bridger Qureshi, MANAGER MULTICULTURAL-INSIDE SALES TERRITORY MANAGER [address] [place] [address] Care Teams Internist Medical Doctor Md Relationship Specialty Start Date End Date Jorge Luis Hill MD [address] [place] [address] PCP - General 02/10/17
--- OUTSIDE RECORDS SUMMARY | 2024-04-02 | XMS_ITS | Clinical Summary ---
Author Organization [facility] Address [address] [place] [address] Care Team Providers Care [employer] Principal Name Role Phone Jorge Luis Hill MD Primary Care Provider [phone] Medications PROAIR HFA 90 mcg/actuation inhaler INHALE [...] mg tablet Active naloxone (Narcan) 4 mg/spray [place], Non-Aerosol Narcan 4 mg/actuation nasal spray 03/18/19 [...] Insurance [employer] Care Teams [employer] Principal Relationship Specialty Start Date End Date Jorge Luis Hill MD PCP - General Emergency Medicine 05/30/18
--- OUTSIDE RECORDS SUMMARY | 2024-04-02 | XMS_ITS | CONTINUITY OF CARE DOCUMENT ---
Author Name meli garrison Address Unknown Organization [facility] Address [address] [place] [address] Phone [phone] Care Team Providers Care Curb Worker Name Role Phone Bulmaro Riggs MD Unavailable MASSIMO QUINTANA MD Unavailable [phone] MASSIMO QUINTANA MD Unavailable [phone] PROBLEMS Condition Status Date Provider Notes TOBACCO [...] 55 completed - Bulmaro Mendieta DIZZINESS S/P CAR PINCHER SHUNT--stre ss nuc normal ef 57%, 10/2017 [...] In-person encounter Office Visit Bulmaro Riggs MD [facility] - In-person encounter Office Visit Bulmaro Riggs MD [facility] - In-person encounter Office Visit Bulmaro Riggs MD [facility] - In-person encounter Office Visit Bulmaro Riggs MD [facility] CAD-05/05 CAROTID NEGHTN--echo ef 61%, AD--normal stress nuc 02/2021 - In-person encounter Office Visit Bulmaro Riggs MD [facility] Shortness of breath - In-person encounter Office Visit Bulmaro Riggs MD [facility] Office HTN-09/04 ECHO EF 45-50 05/05 ECHO EF 35 ,EF 09/05 60%CAD-01/02 NUC EF 40 NORMHTN-05/05 JESIKA DUP NEGHTN-09/05 ECHO EF 55DIZZINESS S/P CAR PINCHER SHUNT--stress nuc normal ef 57%, 10/2017HTN--echo ef 61%, hronic back pain - In-person encounter Office Visit Bulmaro Riggs MD [facility] - In-person encounter Office Visit Bulmaro Riggs MD [facility] - In-person encounter Office Visit Bulmaro Riggs MD [facility] - In-person encounter Office Visit Bulmaro Riggs MD [facility] Diabetes mellitus - In-person encounter Office Visit Bulmaro Riggs MD [facility] - In-person encounter Office Visit Bulmaro Riggs MD [facility] - In-person encounter Office Visit Bulmaro Riggs MD [facility] - In-person encounter Office Visit Bulmaro Riggs MD [facility] - In-person encounter Office Visit Bulmaro Riggs MD [facility] - In-person encounter Office Visit Bulmaro Riggs MD [facility] - In-person encounter Office Visit Bulmaro Riggs MD [facility] DIZZINESS S/P CAR PINCHER SHUNT--stress nuc normal ef 57%, 10/2017SLEEP APNEA ON CPAP - In-person encounter Office Visit Bulmaro Riggs MD [facility] - In-person encounter Office Visit Bulmaro Riggs MD [facility] - In-person encounter Office Visit Bulmaro Riggs MD [facility] - In-person encounter Office Visit Bulmaro Riggs MD [facility] - In-person encounter Office Visit Bulmaro Riggs MD [facility] - In-person encounter Office Visit Bulmaro Riggs MD [facility] - In-person encounter Office Visit Bulmaro Riggs MD [facility] CHEST PAIN-06/04 CATH DIFFUSE DISEASE LAD DISHTN-09/04 ECHO EF 45-50 05/05 ECHO EF 35 ,EF 09/05 60% - In-person encounter Office Visit Bulmaro Riggs MD [facility] VITAL SIGNS Date Observation Value Provider [...] blood pressure, cuff size large Mi deven [place] blood pressure, diastolic 60 mm[Hg] Mi deven [place] blood pressure, systolic 100 mm[Hg] Darren calderon [place] oxygen saturation, oximetry 98 % Adilene [place] respiratory rate E&M 16 /min Natalie marin [place] pulse rate 94 /min Adilene Lang d [...] Anushka Columba height E&M 63 [in_i] Anushka Colmuba Body Mass Index (Ratio) 35.96 kg/m2 Jon [...] Normal Absolute Neutrophil count 5491 cells/mcL [employer] [id number] Normal platelet count 258 THOUSAND/UL [employer] 140-400 [...] active TAKE 1 TABLET BY MOUTH DAILY [facility] Specialist diltiazem HCl (Cardizem CD) 360 mg capsule,extended release 24hr active TAKE 1 CAPSULE BY MOUTH EVERY DAY [facility] furosemide 40 mg tablet completed Take 1 tablet by mouth once a day due for follow up - Omar Vargas diltiazem HCl (Cardizem CD) 360 mg capsule,extended release 24hr completed Take 1 capsule by mouth once a day - [facility] furosemide 40 mg tablet completed TAKE 1 [...] Omar Vargas cetirizine 10 mg tablet [facility] ELLIPTA 100-62.5-25 MCG/INH INHALATION AEROSOL POWDER [...] active as needed Siena Hdez VITAMIN D3 85089 UNIT ORAL TABLET active Take once a [...] 20 MG ORAL TABLET completed daily - Xinag Gómez RN ALPRAZOLAM 0.25 MG ORAL TABLET [...] ewed - no changes required Paul Chau [place] physical exercise, frequency, days per week no [...] status Current every day smoker D zurdo [place] number of grandchildren Bulmaro Riggs MD T [...] ation, patient education and counseling yes Xiang Góemz RN social history reviewed E&M reviewed Xiang [...] ation, patient education and counseling yes Bulmaro Rgigs MD social history E&M L imtiaz with [...] Angina (inactive) Management Plan continue current therapy Bumlaro Riggs MD MENTAL STATUS Date Observation Value [...] Payer name Policy type / Coverage type [facility] constitution party ID ALISA MEDICAID (2) Medicaid [id number] ADVANCE DIRECTIVES Name Date DISCUSSED - NO DECISION MADE TREATMENT PLAN Date Name Performer [id number],S, Omar Ahmedza i [id number],B, Omar Ahmedza i [id number],S, Omar Ahmedza i [id number],S, Omar Ahmedza i [id number],S, Omar Ahmedza i [id number],S, Omar Ahmedza i [id number],S, Omar Ahmedza i [id number],S, Omar Ahmedza i [id number],S, Omar Ahmedza i [id number],S, Omar Ahmedza i [id number],S, Omar Ahmedza i [id number],S, Omar Ahmedza i [id number],S, Omar Ahmedza i [id number],B, Omar Ahmedza i [id number],S, Omar Ahmedza i [id number],S, Omar Ahmedza i [id number],S, Omar Ahmedza i [id number],S, Omar Ahmedza i [id number],S, Omar Ahmedza i [id number],S, Omar Ahmedza i [id number],S, Omar Ahmedza i [id number],S, Omar Ahmedza i [id number],S, Omar Ahmedza i [id number],W, Omar Ahmedza i [id number],S, Omar Ahmedza i [id number],S, Omar Ahmedza i [id number],S, Omar Ahmedza i [id number],S, Omar Ahmedza i [id number],W, Omar Ahmedza i [id number],S, Omar Ahmedza i [id number],W, Omar Ahmedza i Telehealth Bobby Nacht Telehealth Bobby Nacht Telehealth Bobby Nacht Telehealth Bobby Nacht Telehealth Omar Ahmedzai Telehealth Omar Ahmedzai Telehealth Omar Ahmedzai Telehealth Omar Ahmedzai Telehealth Omar Ahmedzai Telehealth Omar Ahmedzai Telehealth Moar Ahmedzai Telehealth Omar Ahmedzai Telehealth Omar Ahmedzai [...] Paul Mishra Cardiology [facility] Cardiology: B P today: 118/80 P [...] ..... One tab. daily Orders: E KG (CPT-15199) Bulmaro Riggs MD f/u: H er updated [...] daily [facility]: T oneal following [...] tricuspid regurgitation. (01/18/2006) Orders: C omplete Echo (CPT-82458) R enal Artery Duplex (CPT-59434) C arotid Duplex Bilateral (CPT-83972) H olter Monitor 24 Hr (CPT-95827) S leep Study (*) Bulmaro Riggs [facility] Al[facility]: T oneal following medications were removed from the medication list: Lasix 20 Mg Tabs (Furosemide) ..... Once daily Her updated medication list for this problem includes: Accupril 20 Mg Tabs (Quinapril hcl) ..... One tab. daily BP today: 170/98 P rior BP: 148/96 (01/08/2008) Orders: C omplete Echo (CPT-38716) R enal Artery Duplex (CPT-85465) C arotid Duplex Bilateral (CPT-59729) H olter Monitor 24 Hr (CPT-20892) S leep Study (*) Bulmaro Riggs MD needs clearance to [facility] per Dr. Albrecht: T oneal following [...] sat: 98 (04/21/2008) Orders: C omplete Echo (CPT-96524) R enal Artery Duplex (CPT-29573) Carotid Duplex Bilateral (CPT-99988) H olter Monitor 24 Hr (CPT-28594) S leep Study (*) Bulmaro Riggs [facility]: O rders: C omplete Echo (CPT-89821) R enal Artery Duplex (CPT-66705) C arotid Duplex Bilateral (CPT-56123) H olter Monitor 24 Hr (CPT-37609) S leep Study (*) Bulmaro Riggs MD needs clearance to [facility] per Dr. Albrecht: T oneal following [...] in the LAD. (06/26/2007) Orders: E KG (CPT-21482) C omplete Echo (CPT-21186) R enal Artery Duplex (CPT-46719) C arotid Duplex Bilateral (CPT-26976) H olter Monitor 24 Hr (CPT-41020) S lee Study (*) C OMPREHENSIVE METABOLIC PANEL W/EGFR (26565) C BC (H/H, RBC, INDICES, WBC, PLT) (3019) Bulmaro Riggs MD office visit: T he [...] ed EKG Bulmaro Riggs MD completed SNOMED-CT: [id number] Physical Exam, Performed: Pulse Exam of Foot Bulmaro Riggs MD completed EKG Bulmaro Riggs MD completed SNOMED-CT: [id number] Current Medications Documented Bulmaro Riggs MD completed EKG Bulmaro Riggs MD completed EKG Bulmaro Riggs MD completed EKG Bulmaro Riggs MD completed EKG Bulmaro Riggs MD completed EKG Bulmaro Riggs MD completed
[2024-04-02] MEDS: diazePAM INJ (*CRX) 10 MG/2 ML SYRINGE 5 MG IM (00:50)
[2024-04-02] MEDS: KETOROLAC (*BKC) 60 MG/2 ML VIAL IM (00:50)
[2024-04-02 01:25] VITALS: BP 129/79; PULSE 102; RESP 18; O2SAT 99
[2024-04-02 01:29] LABS: Influenza A QL RT-PCR Negative (Negative); Influenza B QL RT-PCR Negative (Negative); RSV RNA, RT-PCR Negative (Negative); SARS-CoV-2 RNA PCR Negative (Negative)
--- NOTE | 2024-04-02 01:45 | ED_ITS ---
HPI - General Adult General Chief complaint: Recheck/Abnormal Lab/Rx Stated complaint: pain Time Seen by Provider: 04/01/24 23:49 History of Present Illness HPI narrative: Patient 59-year-old female who presents emergency department with chief complaint of pain all over. The patient reports that she has chronic pain reports that she also has history of COPD and is on chronic oxygen. Patient reports that she has been seen by pain management they told her that they would not write her narcotics and is to start therapy patient states that today her low back and her hips have been bothering her more than normal. Related Data Home Medications ?Medication ?Instructions ?Recorded ?Confirmed ?Last Taken ?Type montelukast 10 mg tablet 10 mg PO HS 12/09/19 03/27/24 03/26/24 History (Singulair) metformin 500 mg tablet 1,000 mg PO BID 06/07/21 03/27/24 03/26/24 History clonidine HCl 0.1 mg tablet 0.1 mg PO HS 09/25/21 03/27/24 03/26/24 History furosemide 40 mg tablet 40 mg PO DAILY 09/25/21 03/27/24 03/26/24 History losartan 50 mg tablet 50 mg PO DAILY 09/25/21 03/27/24 03/26/24 History albuterol sulfate 90 mcg/actuation 2 puff inhalation QID PRN 12/10/21 03/27/24 03/26/24 History aerosol inhaler (ProAir HFA) Shortness Of Breath albuterol sulfate 90 mcg/actuation 2 puff inhalation QID PRN 12/10/21 03/27/24 03/26/24 History aerosol inhaler (Ventolin HFA) Shortness Of Breath cholecalciferol (vitamin D3) 25 25 mcg PO DAILY 12/10/21 03/27/24 03/26/24 History mcg (1,000 unit) tablet (Vitamin D3) ropinirole 0.25 mg tablet 0.25 mg PO HS 12/10/21 03/27/24 03/26/24 History rosuvastatin 20 mg tablet 20 mg PO DAILY 12/10/21 03/27/24 03/26/24 History diltiazem HCl 360 mg 360 mg PO DAILY 07/07/23 03/27/24 03/26/24 History capsule,extended release 24 hr loratadine 10 mg tablet 10 mg PO DAILY 07/07/23 03/27/24 03/26/24 History sitagliptin phosphate 50 mg tablet 50 mg PO DAILY 07/07/23 03/27/24 03/26/24 History (Xianguvia) aspirin 81 mg capsule 81 mg PO DAILY 03/18/24 03/27/24 03/26/24 History Allergies Allergy/AdvReac Type Severity Reaction Status Date / Time No Known Allergies Allergy Verified 03/27/24 06:11 Review of Systems Review of Systems: A 10 system review of systems was completed on the patient and is negative ex cept for what is stated in the HPI. Nursing and ancillary documentation was reviewed. [facility] Past Medical History Medical History Diabetes CVA (cerebral vascular accident) Depression Hyperlipemia Hypertension COPD (chronic obstructive pulmonary disease) Anxiety Arthritis Gastritis Asthma ELIOT (obstructive sleep apnea) Lumbar radiculopathy Folliculitis Surgical History Surgical History History of delivery S/P MANAGER SHELL shunt H/O removal of cyst brain, unable to remove due to cyst being wrapped around spinal cord. H/O: hysterectomy H/O cardiac catheterization Family History Family History Father Diabetes mellitus Hypertension Mother Hypertension Other Arthritis Asthma Cancer Cerebrovascular accident Depression Family history of arthritis Family history of heart disease in male family member before age 55 Family history of lung disease High cholesterol Social History Social History Smoking packs per day: 2 Smoking cigarettes per day: 40.0 Years smoked: 41 Smoking pack-years: 82.00 Smoking status: Former smoker Tobacco type: cigarettes Second hand tobacco smoke exposure: Yes Alcohol intake: former Substance use: never Substance use type: does not use Do You Feel Safe in your Home?: Yes Lack of Transportation: YES Lack of Food: Sometimes True Current Housing: I Do Not Have Housing Concerned About Future Housing: YES Difficulty Paying Gas/Electric Bills: No Difficulty Paying for Meds: No Currently Unemployed: No Education: Decline to Answer Difficulty w/ Childcare or Family Care: No Living arrangements: with family Occupation/Education: unemployed Gender identity (if verbalized by the patient): Female Sexual Orientation (if Verbalized by the Patient): Straight or Heterosexual Spiritual care concerns: No Exam Narrative: GENERAL: Well-appearing, well-nourished, and in no acute distress. HEAD: Normocephalic, atraumatic. EYES: PERRLA and EOMI. ENT: Nares clear, no rhinorrhea or epistaxis. Mucous membranes moist. NECK: Supple. CHEST: Clear to auscultation. No respiratory distress. HEART: Regular rate and rhythm. No murmur heard. Normal peripheral pulses. ABDOMEN: Soft, nontender, nondistended, normal active bowel sounds. EXTREMITIES: Normal range of motion mild tenderness palpation the right hip. No edema. SKIN: Warm, dry, no rash. NEURO: No focal deficits. Alert and oriented x3. PSYCH: Normal mood and affect. Course Vital Signs Vital signs: Vital Signs Temperature 36.3 C L 04/01/24 18:39 Pulse Rate 109 H 04/01/24 18:39 Respiratory Rate 20 04/01/24 18:39 Blood Pressure 111/75 04/01/24 18:39 Pulse Oximetry 98 04/01/24 18:39 Temperature 36.3 C L 04/01/24 18:39 Pulse Rate 102 H 04/02/24 01:25 Respiratory Rate 18 04/02/24 01:25 Blood Pressure 129/79 04/02/24 01:25 Pulse Oximetry 99 04/02/24 01:25 Medical Decision Making MDM Narrative Medical decision making narrative: Differential diagnosis includes viral illness, low back pain, fracture, Lumbar spine x-ray showed no acute fracture Plain film x-rays of the right hip showed no evidence of fracture COVID flu and RSV are neck Patient given Toradol and a dose of Valium patient given a prescription for nor flex and a prescription for diclofenac Vital Signs Vital Signs: Vital Signs Temperature 36.3 C L 04/01/24 18:39 Pulse Rate 109 H 04/01/24 18:39 Respiratory Rate 20 04/01/24 18:39 Blood Pressure 111/75 04/01/24 18:39 Pulse Oximetry 98 04/01/24 18:39 Temperature 36.3 C L 04/01/24 18:39 Pulse Rate 102 H 04/02/24 01:25 Respiratory Rate 18 04/02/24 01:25 Blood Pressure 129/79 04/02/24 01:25 Pulse Oximetry 99 04/02/24 01:25 Lab Data Labs: Lab Results 04/02/24 Range/Units 00:48 Influenza A (RT-PCR) Negative (Negative) Influenza B (RT-PCR) Negative (Negative) RSV (RT-PCR) Negative (Negative) SARS-CoV-2 RNA (RT-PCR) Negative (Negative) Discharge Plan Discharge Clinical Impression: Low back pain, Acute right hip pain Patient Disposition: Home, Self-Care Condition: Stable Instructions: Antibiotic Form, Acute Low Back Pain (ED) Patient Language: Romanian Prescriptions: New diclofenac potassium 50 mg tablet 50 mg PO TID PRN (Reason: pain) Qty: 30 0RF orphenadrine citrate 100 mg tablet extended release 100 mg PO Q12H PRN (Reason: muscle pain) Qty: 30 0RF No Action ropinirole 0.25 mg Tablet 0.25 mg PO HS albuterol sulfate [ProAir HFA] 90 mcg/actuation Hfa Aerosol Inhaler 2 puff INHALATION QID PRN (Reason: Shortness Of Breath) albuterol sulfate [Ventolin HFA] 90 mcg/actuation Hfa Aerosol Inhaler 2 puff INHALATION QID PRN (Reason: Shortness Of Breath) rosuvastatin 20 mg Tablet 20 mg PO DAILY cholecalciferol (vitamin D3) [Vitamin D3] 25 mcg (1,000 unit) Tablet 25 mcg PO DAILY montelukast [Singulair] 10 mg tablet 10 mg PO HS metformin 500 mg tablet 1,000 mg PO BID pantoprazole 40 mg tablet,delayed release (DR/EC) 40 mg PO BID Qty: 60 3RF amitriptyline 50 mg tablet 50 mg PO HS Qty: 30 3RF Linzess 290 mcg capsule 290 mcg PO DAILY Qty: 30 3RF losartan 50 mg tablet 50 mg PO DAILY clonidine HCl 0.1 mg tablet 0.1 mg PO HS furosemide 40 mg tablet 40 mg PO DAILY diltiazem HCl 360 mg capsule,extended release 24hr 360 mg PO DAILY loratadine 10 mg tablet 10 mg PO DAILY Januvia 50 mg tablet 50 mg PO DAILY acetaminophen 500 mg Tablet 1,000 mg PO Q6H PRN (Reason: Pain 1-3 or Fever) Qty: 30 0RF sulfamethoxazole-trimethoprim [Bactrim DS] 800-160 mg tablet 1 tablet PO Q12H 10 Days Qty: 20 0RF aspirin 81 mg capsule 81 mg PO DAILY metoclopramide HCl 10 mg tablet See Rx Instructions .ROUTE .COMPLEX Qty: 90 3RF Dose Instruction: TAKE 1 TABLET BY MOUTH THREE TIMES DAILY Rx Instructions: TAKE 1 TABLET BY MOUTH THREE TIMES DAILY Follow-up/Referrals: Jorge Luis Hill MD [Primary Care Provider] -
[2024-04-02 02:02] VITALS: BP 127/92; PULSE 98; RESP 18; O2SAT 98
== END 2024-04-02 02:03 | disposition home or self-care (01) ==
PROVIDERS: Physician Assistant; Emergency Provider Emergency Medicine; PCP Emergency Medicine
DX: M54.50 Low back pain, unspecified (principal); M25.551 Pain in right hip; Z20.822 Contact with and (suspected) exposure to COVID-19; J44.9 Chronic obstructive pulmonary disease, unspecified; Z99.81 Dependence on supplemental oxygen; I10 Essential (primary) hypertension; E11.9 Type 2 diabetes mellitus without complications; E78.5 Hyperlipidemia, unspecified; M19.90 Unspecified osteoarthritis, unspecified site; G47.33 Obstructive sleep apnea (adult) (pediatric); F41.9 Anxiety disorder, unspecified; F32.A Depression, unspecified; Z98.2 Presence of cerebrospinal fluid drainage device; Z86.73 Personal history of transient ischemic attack (TIA), and cerebral infarction without residual deficits; Z87.891 Personal history of nicotine dependence; Z90.710 Acquired absence of both cervix and uterus; M47.816 Spondylosis without myelopathy or radiculopathy, lumbar region; Z79.84 Long term (current) use of oral hypoglycemic drugs; Z79.899 Other long term (current) drug therapy; Z79.82 Long term (current) use of aspirin
CPT/HCPCS: 72100; 73502; 87637; 96372; 99284; J1885; J3360

== ENCOUNTER 2024-04-04 10:30 | Outpatient (CLI) | payer OTHER, SELFPAY ==
--- NOTE | ~2024-04-04 | XR_ITS ---
EXAMINATION: XR barium swallow modified DATE: 04/04/2024 11:21 INDICATION: Dysphagia. TECHNIQUE: The patient was given barium-containing material of multiple consistencies to swallow by t he speech pathologist while I performed fluoroscopy. Fluoroscopy exposure time was 1.5 minutes. The n umber of fluoroscopy images saved to the PACS was 1. Dose-area product was 0.940 Gy-cm^2. FINDINGS: There is reduced laryngeal elevation. There is laryngeal penetration. IMPRESSION: 1. Laryngeal penetration. 2. Please refer to the speech therapy report for recommendations. Reviewed, dictated and finalized at location A. [employer]
--- OUTSIDE RECORDS SUMMARY | 2024-04-04 10:53 | XMS_ITS | Referral Summary ---
Author Organization [facility] Address [address] [place] [address] Phone Care Team Providers Care Chief Commercial Officer Name Role Phone Jorge Luis Hill MD Primary Care Provider [phone] Encounters Date Type Department Care Team Description 03/28/2024 Orders Only [facility] Pulmonary at [address] [place] [phone] Jany Hernandez NP Pulmonary nodules (Primary Dx) 03/25/2024 12:27 PM DITCHER - 03/25/2024 11:59 PM DITCHER Hospital Encounter [address] [address] Nicotine dependence, cigarettes, uncomplicated Discharge Disposition: Discharge to home or self care 03/22/[address] [address] Jany Marina RN 02/12/2024 3:00 PM DITCHER Office Visit [facility] Pulmonary at [address] [place] [phone] Jany Hernandez NP Centrilobular emphysema (HCC) (Primary [...] 120 tablet 2 Active cholecalciferol (VITAMIN D-3) 69013 unit tablet Take 1 tablet (50,000 Units [...] remission Assessment & Plan (02/13/2024 11:57 AM DITCHER): Quit in November of 2023 She is due for annual CT chest in February of 2023 Chronic respiratory failure with hypoxia, on home O2 therapy ([facility]) 02/13/2024 Assessment & Plan (02/13/2024 11:58 AM DITCHER): Continue supplemental oxygen for saturations 90% I have advised her to get a home pulse oximeter and bring it to her next visit for comparison She has a visit with our variety saw operator upcoming and will likely have an echocardiogram. I have asked her to have this faxed over to our office for review as well Diabetic peripheral neuropat hy associated with type 2 diabetes mellitus ([facility]) 08/07/2023 Assessment & Plan (08/07/2023 4:05 PM [...] (01/03/2022): Added automatically from request for surgery [id number] Smoking 12/14/2021 Assessment & Plan (12/19/2021 11:55 [...] months Assessment & Plan (01/14/2022 11:03 AM DITCHER): - Pt has completed 4 weeks of [...] s/p bedside debridement of necrotic mandible on 12/15. Studies sent. Mixed upper respiratory tract organisms and [...] tract. If no surgical plan, Resume diet. 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 Pain control with prn tylenol [...] disease) Assessment & Plan (02/13/2024 11:59 AM DITCHER): Continue Symbicort twice daily Continue Spiriva twice [...] 12/13/2021 Assessment & Plan (02/13/2024 11:57 AM DITCHER): Continue PAP with all sleep She is aware of the risks of uncorrected sleep apnea Assessment & Plan (12/21/2021 12:03 PM CDT): Exacerbated by BMI 42. Alert, oriented. Outpatient PSG Assessment & Plan (12/13/2021 11:24 AM CDT): Exacerbated by BMI 42. Alert, oriented. Morbid obesity with BMI of 40.0-44.9, adult 11/27 Assessment & Plan (12/14/2021 3:10 PM CDT): BMI 42.07, 104.3kg this admit. 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 Assessment & Plan (12/13/2021 10:25 AM CDT): BMI 42.07, 104.3kg this admit. 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 Pancreatic cyst 01/10/2020 Overview (01/10/2020): Added automatically from request for surgery [id number] Immunizations Name Administration Dates Next Due Influenza, [...] often do you attend chur ch or mu-ism services? Never 12/22/2021 Do you belong to [...] place to sleep or slept in a mcfp (including now)? No 12/22/2021 Personal Safety Answer Date Recorded Getting School Help Needed Denies 02/11 Comments No Sex and Gender Information Value Date Recorded Sex Assigned at Not on file Legal Sex Female 1:34 AM DITCHER Gender Identity Not on file Sexual Orientation Not on file Last Filed Vital Signs Vital Sign Reading Time Taken Comments Blood Pressure 96/63 02/12/2024 2:42 PM DITCHER Pulse 86 02/12/2024 2:42 PM DITCHER Temperature 36.1 C (96.9 F) 02/12/2024 2:42 PM DITCHER Respiratory Rate 18 02/12/2024 2:42 PM DITCHER Oxygen Saturation 92% 02/12/2024 2:42 PM DITCHER Inhaled Oxygen Concentration - - Weight 85.3 kg (188 lb) 03/25/2024 12:44 PM DITCHER Height 162.6 cm (5' 4 ) 03/25/2024 12:44 PM DITCHER Body Mass Index 32.27 03/25/2024 12:44 PM DITCHER Plan of Treatment Not on file Medical Devices Implanted Type Area Blanker Operator Device Identifier Shelf Expiration Date Model / Serial / Lot Shunt Implanted:Qty: 2 Shunt Brain Synovis Natanael Ulien Moroni Microvascular 3.5mm Ring Pin Protective Cover Jaw Assembly Latex Free [id number] - [id number] Implanted:Qty: 1 on 2022 by Ricci Shelton MD at [facility] Mandible Synovis ScanSocial Allian [id number] 04/12/2026 [id number] / / [id number] Álvaro Craniomaxillofaci al 2mm Primary Reconstruction Customize Mandible Bebeto Plate Bone [id number] - [id number] Implanted:Qty: 1 on 2022 by Ricci Shelton MD at [facility] Mandible [place] Craniomaxillofacial [id number] / / [place] Craniomaxillofaci al Leibinger [place] 2 2.3mm 6mm Lock Cross Pin Maxillofacial [id number] - [id number] Implanted:Qty: 1 on 2022 by Ricci Shelton MD at [facility] Mandible Álvaro Craniomaxillofacial [id number] / / [place] Craniomaxillofaci al Leibinger [place] 2 2.3mm 8mm Lock Cross Pin Maxillofacial [id number] - [id number] Implanted:Qty: 2 on 2022 by Ricci Shelton MD at [facility] Mandible Álvaro Craniomaxillofacial [id number] / / [place] Craniomaxillofaci al Leibinger [place] 2 2.3mm 12mm Lock Cross Pin Maxillofacial [id number] - [id number] Implanted:Qty: 3 on 2022 by Ricci Shelton MD at [facility] Mandible [place] Craniomaxillofacial [id number] / / [place] Craniomaxillofaci al Leibinger [place] 2 2mm 6mm Self Tap Cross Pin Maxillofacial 50 - [id number] Implanted:Qty: 4 on 2022 by Ricci Shelton MD at [facility] Mandible [place] Craniomaxillofacial 50 / / [place] Craniomaxillofaci al Leibinger [place] 2 2mm 6mm Lock Cross Pin Maxillofacial Screw 50 - [id number] Implanted:Qty: 1 on 2022 by Ricci Shelton MD at [facility] Mandible [place] Craniomaxillofacial / / Explanted Type Area Blanker Operator Device Identifier Shelf Expiration Date Model / Serial / Lot Álvaro Craniomaxillofaci al Leibinger [place] 2 2mm 8mm Self Tap Cross Pin Maxillofacial 50 - [id number] Explanted:Qty: 4 on 2022 at [facility] Mandible [place] Craniomaxillofacial 50 / / [place] Craniomaxillofaci al Leibinger [place] 2 2.3mm 8mm Self Tap Cross Pin Maxillofacial [id number] - [id number] Explanted:Qty: 1 on 2022 at [facility] Mandible [place] Craniomaxillofacial [id number] / / [employer] Probe Doppler 17.4cm Standard Cuff Implantable 20mhz Latex Free Sterile Microvascular Anastomoses Carmen [id number] - [id number] Implanted:Qty: 1 on 2022 by Ricci Shelton MD at [facility] Explanted:Qty: 1 on 02/14/2022 by Marie Parr PA Right: Neck [employer] [id number] 10/27/2024 [id number] / / [id number] Procedures Procedure Name Priority Date/Time Associated Diagnosis Comments CT LUNG CANCER SCREENING Schedule Routine, Read Routine (OP Routine) 03/25/2024 12:46 PM DITCHER Nicotine dependence, cigarettes, uncomplicated POCT HEMOGLOBIN A1C Routine 08/07/2023 3:17 PM CDT Type 2 diabetes mellitus with hyperglycemia, without long-term current use of insulin (CMS/HCC) (HCC) EGFR Routine 08/03/2023 1:59 PM CDT Osteoporosis, unspecified osteoporosis type, unspecified pathological fracture presence LIPID PANEL STAT 02/15/2022 2:00 PM DITCHER HEPATITIS PANEL, ACUTE Routine 12/15/2021 11:19 PM CDT from Last 3 Months or Most Recently Relevant to Health Maintenance Results * CT Lung Cancer Screening (03/25/2024 12:46 PM DITCHER) Anatomical Region Laterality Modality Chest N/A Computed Tomogra phy 03/26/2024 9:54 AM DITCHER Narrative 03/26/2024 10:03 AM DITCHER EXAM DESCRIPTION: CT LUNG CANCER SCREENING REASON FOR STUDY: Screening CT of the chest in a former smoker with a 49 pack year smoking history. Additional history: None. [...] LUNG DISEASE: There are mild emphysematous changes of lungs with scattered mild subsegmental atelectasis and scarring. There are scattered subtle mild ground-glass centrilobular airspace opacities in bilateral lungs, which is probably due to smoking related respiratory bronchiolitis. There is mild biapical pleural thickening and scarring. There is no definite evidence of a pneumothorax. There is scattered mild bronchial wall thickening, which [...] effusion. There are atherosclerotic changes of the thoracic aorta and coronary vessels. There is partial visualization of ventriculoperitoneal shunt. There is no definite unenhanced CT evidence of mediastinal or hilar lymphadenopathy. There are scattered subcentimeter mediastinal lymph nodes noted [...] Almita Miller D.O. PS: PS Report ID: [id number] Reading Location: [id number] Procedure Note Almita Miller DO - 03/26/2024 [...] Almita Miller D.O. PS: PS Report ID: [id number] Reading Location: [id number] Ethan Leung MD IMG CT PROCEDURES Final Result * (ABNORMAL) POCT hemoglobin A1c (08/07/2023 3:17 PM CDT) Hemoglobin A1C, POC 5.9 % Capillary blood 08/07/2023 3 :17 PM CDT Briana Santana MD POINT OF CARE TEST ORDERABLES Fi nal Result * eGFR (08/03/2023 1:59 PM CDT) eGFR 73 >=60 mL/min/1. 73 m2 Comment: Interpretive Data Reference Interval Normal >/= 90 mL/min/1.73m2 Mildly decreased* 60 - 89 mL/min/1.73m2 Mildly to moderately decreased 45 - 59 mL/min/1.73m2 Moderately to severely decreased 30 - 44 mL/min/1.73m2 Severely decreased 15 - 29 mL/min/1.73m2 Kidney Failure < 15 mL/min/1.73m2 *Relative to young adult level Estimated glomerular [...] MD LAB BLOOD ORDERABLES Final Resu lt [facility] Department [place] [address] * (ABNORMAL) Lipid panel (02/15/2022 2:00 PM DITCHER) Cholesterol 161 30 - 199 mg/dL [facility] Comment: Interpretive Data Ages < or = 19 years Acceptable: <170 mg/dL Borderline high: 170-199 mg/dL High: >or= 200 mg/dL Ages > or = 20 years Desirable: <200 mg/dL Borderline high: 200-239 mg/dL High: >or= 240 mg/dL Literature References: 1. Expert Panel on Integrated Guidelines for Cardiovascular Health and Risk Reduction in Children and Adolescents. Pediatrics 2011;128:S213 2. NCEP Expert Panel. Circulation 2004;110:227 Current Interpretive Data was last revised on 2017. Triglycerides 253(H) <=149 mg/dL [facility] Comment: Interpretive Data Ages < or = 9 years Acceptable: <75 mg/dL Borderline high: 75-99 mg/dL High: >or= 100 mg/dL Ages 10 to 20 years Acceptable: <90 mg/dL Borderline high: 90-129 mg/dL High: >or= 130 mg/dL Ages > or = 20 years Desirable: <150 mg/dL Borderline high: 150-199 mg/dL High: 200-499 mg/dL Very high: >or= 499 mg/dL Literature References: 1. Expert Panel on Integrated Guidelines for Cardiovascular Health and Risk Reduction in Children and Adolescents. Pediatrics 2011;128:S213 2. NCEP Expert Panel. Circulation 2004;110:227 Current Interpretive Data was last revised on 2017. HDL 42 >=40 mg/dL [facility] Comment: Interpretive Data Ages < or = 19 years Acceptable: >45 mg/dL Borderline low: 40-45 mg/dL Low: <40 mg/dL Ages > or = 20 years Desirable: >or= 60 mg/dL Low: <40 mg/dL Literature References: 1. Expert Panel on Integrated Guidelines for Cardiovascular Health and Risk Reduction in Children and Adolescents. Pediatrics 2011;128:S213 2. NCEP Expert Panel. Circulation 2004;110:227 Current Interpretive Data was last revised on 2017. LDL, calculated 68 <=129 mg/dL [facility] Comment: Interpretive Data Ages < or = 19 years Acceptable: <110 mg/dL Borderline high: 110-129 mg/dL High: >or= 130 mg/dL Ages > or = 20 years Optimal: <100 mg/dL Near optimal: 100-129 mg/dL Borderline high: 130-159 mg/dL High: >160 mg/dL Literature References: 1. Expert Panel on Integrated Guidelines for Cardiovascular Health and Risk Reduction in Children and Adolescents. Pediatrics 2011;128:S213 2. NCEP Expert Panel. Circulation 2004;110:227 Current Interpretive Data was last revised on 2017. Non-HDL Cholesterol 119 mg/dL [facility] Comment: Interpretive Data Ages < or = 19 years Acceptable: <120 mg/dL Borderline high: 120-144 mg/dL High: >145 mg/dL Ages > or = 20 years When triglycerides are >200 mg/dL, Non-HDL cholesterol is a secondary target of therapy with treatment goals that are 30 mg/dL greater than the LDL cholesterol target. Literature References: 1. Expert Panel on Integrated Guidelines for Cardiovascular Health and Risk Reduction in Children and Adolescents. Pediatrics 2011;128:S213 2. NCEP Expert Panel. Circulation 2004;110:227 Current Interpretive Data was last revised on 2017. Chol/HDL ratio 4 [facility] Blood 02/15/2022 2:00 PM DITCHER 02/15/2022 5:52 PM DITCHER us Neri Loco MD LAB BLOOD ORDERABLES Fi nal Result [facility] Department [place] [address] * Hepatitis panel, acute (12/15/2021 11:19 PM CDT) Hep A IgM Nonreactive Nonreactive Comment: Interpretive Data: If Hep A IgM Ab is reported as Equivocal, a new sample should be drawn in two weeks for testing. Current interpretive data was last revised on 19. Hep B core IgM Nonreactive Nonreactive [facility] Comment: Interpretive Data If HepB Core IgM Ab is reported as Equivocal, a new sample should be drawn in two weeks for testing. Current interpretive data was last revised on 19. Hep C Ab Nonreactive Nonreactive [facility] Comment:Antibodies to HCV no t detected. Does NOT exclude the possibility of recent exposure to HCV. HepBsAg Nonreactive Nonreactive [facility] Blood 12/15/2021 11:1 9 PM CDT 12/16/2021 12:30 AM CDT us Orly Fine MD LAB MICROBIOLOGY - GENERAL O RDERABLES Edited Result - Final [facility] Department [place] [address] from Last 3 Months or Most Recently Relevant to Health Maintenance Additional Health Concerns Infection Onset Date Last Indicated MDR gram neg/ESBL 2022 2022 Insurance Advance Directives For more information, please contact: [phone] * Full Code (Latest Code Status on File) Date Activated Date Inactivated Comments 04/26/2022 9:48 PM 05/03/2022 6:39 PM * Full Code Date Activated Date Inactivated Comments 2022 9:27 PM 02/14/2022 9:56 PM * Full Code Date Activated Date Inactivated Comments 12/13/2021 5:40 PM 12/21/2021 6:14 PM * Full Code Date Activated Date Inactivated Comments 01/22/2020 1:18 PM 01/22/2020 10:15 PM Care Teams Chief Commercial Officer Relationship Specialty Start Date End Date Jorge Luis Hill MD PCP - General 3//19
--- OUTSIDE RECORDS SUMMARY | 2024-04-04 10:54 | XMS_ITS | Clinical Summary ---
Author Organization [facility] [employer] Address [address] [place] [address] Care Team Providers Care Propulsion Machinery Service Engineer Name Role Phone Jorge Luis Hill MD Primary Care Provider [phone] Source Comments [facility] [employer],non-owned Affiliates and Associated Physician Practices is amultiple site organization consisting of ambulatory clinics and hospital sitesin [place], [place], [place] and [place]. This disclosure is being madepursuant to the Care Everywhere program and may not contain all information available regarding this patient. Last updated 17.[facility] [employer] Allergies No known active allergies Medications [...] naloxone HCl (Narcan) 4 MG/0.1ML nasal spray [place] 40 (forty) sprays into the nose as [...] Comments Blood Pressure 155/92 03/24/2023 2:17 PM SAND [place]STER Pulse 101 03/24/2023 2:17 PM SAND [place]STER Temperature 36.7 C (98 F) 03/24/2023 2:17 PM SAND CASTER Respiratory Rate 18 03/24/2023 2:17 PM SAND [place]STER Oxygen Saturation 96% 03/24/2023 2:17 PM SAND CASTER Inhaled Oxygen Concentration - - Weight 84.3 kg (185 lb 12.8 oz) 03/24/2023 2:17 PM SAND CASTER Height 162.6 cm (5' 4 ) 03/24/2023 2:17 PM SAND CASTER Body Mass Index 31.89 03/24/2023 2:17 PM SAND CASTER Plan of Treatment Upcoming Encounters Date Type Department Care Team (Late st Contact Info) Description 05/31/2024 1:15 PM CDT Appointment [facility] [address] [place] [id number] Bridger Qureshi, REAL ESTATE FINANCIAL ANALYST-AEROPHYSICIST [address] [place] [address] Health Maintenance Due Date Last Done Comments [...] Additional history exists INFLUENZA VACCINE (#1) 2023 , 01/10/2022, 03/05/2021 DEPRESSION SCREENING 02/28/2024 DTAP/TDAP/TD VACCINES [...] age to complete this topic Care Teams Propulsion Machinery Service Engineer Relationship Specialty Start Date End Date Jorge Luis Hill MD [address] [place] [address] PCP - General 02/10/17
--- OUTSIDE RECORDS SUMMARY | 2024-04-04 10:54 | XMS_ITS | Data Portability ---
Author Organization [place] [facility] [employer], Main Office Address [address] [place] [address] Care Team Providers Care Water Rights Specialist Name Role Phone MASSIMO QUINTANA Primary Care Provider Assessment No assessment recorded. Plan of Treatment Reminders Order Date Submit Date Provider Last Modified By Organization Details Last Modified Time Details Appointments Telepsych iatry 20 2024 01:40P Amy Zelaya NP Not available Not available Not available Lab None recorded. Referral None recorded. Procedures None recorded. Surgeries None recorded. Imaging None recorded. Medication Orders ropinirol e 0.5 mg tablet [address] [facility], [address] [place], [address], 07/05/2022 21:39:36 Breztri Aerospher e 160 mcg-9mcg- 4.8mcg/ac tuation HFA aerosol inhaler 2022 023 [facility] [employer] #[id number], [address] [place], [place], [phone], 11/30/2022 21:32:06 albuterol sulfate HFA 90 mcg/actua tion aerosol inhaler 2022 023 [facility][id number], [address] [place], [place], [phone], 11/30/2022 21:32:06 Patient TargetsNo targets recorded. Patient InstructionsNo instructions recorded. Reason for Referral None Reported. Results Created Date Observation Date Name Description Value Unit Range Abnormal Flag Note LastModifiedBy Organization Detail LastModifiedTime 10/14/20 22 12/07/2021 six minut e walk test* No observ ation record ed. [id number] [facility] [address] [place] [address] [place] [address], [phone], 04/27/2022 01:23:36 12/11/19 22 12/07/2021 compl ete PFT w/ post [facility] hodil ator clarisa metry * No observ ation record ed. [id number] [facility] [address] [place] [address] [place] [address], [phone], 04/27/2022 01:23:36 12/25/19 22 12/07/2021 compl ete PFT w/ post [facility] hodil ator clarisa metry * No observ ation record ed. [id number] [facility] [address] [place] [address] [place] [address], [phone], 04/27/2022 01:23:36 12/25/19 22 12/07/2021 six minut e walk test* No observ ation record ed. [id number] [facility] [address] [place] [address] [place] [address], [phone], 04/27/2022 01:23:36 Result Notes None recorded. Problems Name Problem SNOMED Code Status Onset Date Resolution Date Notes Provider Name and Address Organization Details Recorded Time Chronic obstructive pulmonary disease 81061862 Active 2017 Not Available [facility] 3 01:04:05 Body mass index 30+ - obesity 519665160 Active 2017 Not Available [facility] 3 01:04:05 Abscess of submandibular region 62768070 Active 2021 Not Available [facility] 3 01:04:05 Gastroesophag eal reflux disease without esophagitis 291972751 Active 2017 Not Available [facility] 3 01:04:05 Tachycardia 4377603 Active 2021 Not Available [facility] 3 01:04:05 Periodic limb movement disorder 448749141 Active 2017 Not Available [facility] 3 01:04:05 Infection of tooth 035658980 Active 2021 Not Available [facility] 3 01:04:05 Nicotine dependence 38460983 Active 2020 Not Available [facility] 3 01:04:05 Dyspnea on exertion 82806863 Active 2017 Not Available [facility] 3 01:04:06 Allergic rhinitis 18338606 Active 2020 Not Available [facility] 3 01:04:06 Hemoptysis 99306252 Active 2021 Not Available [facility] 3 01:04:06 Chronic cough 11509647 Active 2021 Not Available [facility] 3 01:04:06 Obstructive sleep apnea syndrome 43477983 Active 2017 Not Available [facility] 3 01:04:06 Fatigue 42162356 Active 2017 Not Available [facility] 3 01:04:06 Tobacco dependence syndrome 18666537 Active 2017 Not Available [facility] 3 01:04:06 Problem Notes None recorded. Procedures Surgical History Date Name Laterality Status Provider Name and Address Organization Details Recorded Time 2 colonoscopy completed Not Available [facility] 04/28/19 23 00:52:48 Imaging Results Imaging Date Name Status LastModified by Organization Details LastModified Time 12/07/2021 complete PFT w/ post bronchodilator spirometry* completed [id number] [facility] [address], [address], 04/27/2022 01:23:36 12/07/2021 six minute walk test* completed [id number] [facility] [address], [address], 04/27/2022 01:23:36 12/07/2021 six minute walk test* completed [id number] [id number] [facility] [address] [facility] [address], [place], [address], 04/27/2022 01:23:36 12/07/2021 complete PFT w/ post bronchodilator spirometry* completed [id number] 8974 [facility] [address] [facility] [address], [place], [address], 04/27/2022 01:23:36 Procedure Notes None recorded. Medical [...] % 98 % 91 /min 90 /min 816099. 25 g 120 mm[Hg] 62 mm[Hg] 126 mm[Hg] 72 mm[Hg] Not Available [facility] 3 00:54:34 Date Recorded Body height Body temperature Heart rate Oxygen saturation Oxygen saturation in Arterial blood by Pulse oximetry Inhaled oxygen flow rate Systolic blood pressure Diastolic blood pressure Provider Name and Address Organization Details Last Updated DateTime 3 156.21 cm 96.6 [degF] 100 /min 97 % 97 % 2 L/min 120 mm[Hg] 70 mm[Hg] Bessie Ty MA [facility] [employer] [facility] 3 14:04:16 Date Recorded Body height Body temperature Heart rate Oxygen saturation Oxygen saturation in Arterial blood by Pulse oximetry Inhaled oxygen flow rate Systolic blood pressure Diastolic blood pressure Provider Name and Address Organization Details Last Updated DateTime 3 156.21 cm 97.3 [degF] 98 /min 95 % 95 % 2 L/min 120 mm[Hg] 64 mm[Hg] Bessie Ty MA [facility] [employer] [facility] 3 14:25:29 Date Recorded Body height Heart rate Oxygen saturation Oxygen saturation in Arterial blood by Pulse oximetry Inhaled oxygen flow rate Systolic blood pressure Diastolic blood pressure Provider Name and Address Organization Details Last Updated DateTime 3 156.21 cm 112 /min 97 % 97 % 2 L/min 118 mm[Hg] 68 mm[Hg] Laura Kwon [facility] [employer] [facility] 3 16:29:56 Social History Question Answer Notes LastModified by Organization Details LastModified Time Tobacco Smoking Status Current Every Day Smoker Not Available [facility] 04/27/2022 00:48:19 Do You Have An Advance Directive? No MIGRATION.0301 [id number] Information not available 04/27/2022 What Is Your Level Of Alcohol Consumption? None MIGRATION.0301 [id number] Information not available 04/27/2022 What Is Your Level Of Caffeine Consumption? Heavy Coffee Drinker All Day Longer MIGRATION.0301 348012 Information not available 04/27/2022 How Much Tobacco Do You Chew? None MIGRATION.0301 802244 Information not available 04/27/2022 In The 14 Days Before Symptom Onset, Have You Had Close Contact With A Laboratory-confi rmed COVID-19 While That Case Was Ill? No MIGRATION.0301 258687 Information not available 04/27/2022 In The 14 Days Before Symptom Onset, Have You Had Close Contact With A Person Who Is Under Investigation For COVID-19 While That Person Was Ill? No MIGRATION.0301 185114 Information not available 04/27/2022 What Type Of Diet Are You Following? REGULAR MIGRATION.0301 484046 Information not available 04/27/2022 Which Illicit Or Recreational Drugs Have You Used? None MIGRATION.0301 493714 Information not available 04/27/2022 Do You Or Have You Ever Used E-cigarettes Or Vape? Never Used Electronic Cigarettes MIGRATION.0301 376352 Information not available 04/27/2022 Do You Have An Electrostatic Air Filter? 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 No MIGRATION.0301 264572 Information not available 04/27/2022 Where Do You Live? [facility] MIGRATION.0301 123601 Information not available 04/27/2022 Do You Have Moisture Problems In Your Home? No MIGRATION.0301 416306 Information not available 04/27/2022 What Was The Date Of Your Most Recent Tobacco Screening? 12/01/2020 MIGRATION.0301 249263 Information not available 04/27/2022 How Many Children Do You Have? 2 MIGRATION.0301 212846 Information not available 04/27/2022 Have You Ever Been Counseled For Unhealthy Alcohol Use? No MIGRATION.0301 263300 Information not available 04/27/2022 Do You Have Any Pets? Yes Dogs Inside MIGRATION.0301 205598 Information not available 04/27/2022 Do You Have Smoke And Carbon Monoxide Detectors In Your Home? Yes MIGRATION.0301 323939 Information not available 04/27/2022 At What Age Did You Start Smoking Tobacco? 12 MIGRATION.0301 517428 Information not available 04/27/2022 Are You Passively Exposed To Smoke? Yes MIGRATION.0301 514380 Information not available 04/27/2022 Do You Or Have You Ever Used Smokeless Tobacco? Never Used Smokeless Tobacco MIGRATION.0301 593549 Information not available 04/27/2022 How Much Tobacco Do You Smoke? 0.5 PPD MIGRATION.0301 706926 Information not available 04/27/2022 Do You Use Any Illicit Or Recreational Drugs? No MIGRATION.0301 377952 Information not available 04/27/2022 Has Tobacco Cessation Counseling Been Provided? No MIGRATION.0301 751565 Information not available 04/27/2022 How Many Years Have You Smoked Tobacco? 47 MIGRATION.0301 003905 Information not available 04/27/2022 Have You Recently Traveled Abroad? No MIGRATION.0301 560764 Information not available 04/27/2022 Do You Have Any Dietary Restrictions? No MIGRATION.030 430842 Information not available 04/27/2022 Do You Or Have You Ever Used Any Other Forms Of Tobacco Or Nicotine? No MIGRATION.030 480755 Information not available 04/27/2022 Sex: Female Functional Status Question Answer Note LastModified by Organizat ion Details LastModified Time What is your exercise level? None MIGRATION.[id number] Information not available 04/27/2022 Mental Status None recorded. Family History Relationship Description Onset Age of this Age Resolved Age Notes LastModified by Organization Details LastModified Time Mother Heart disease MIGRATION.498 [id number] Not available 04/27/2022 00:52:53 Mother Hyperlipidem ia MIGRATION.500 [id number] Not available 04/27/2022 00:52:53 Father Diabetes mellitus MIGRATION.078 [id number] Not available 04/27/2022 00:52:54 Father Hypertensive disorder MIGRATION.799 [id number] Not available 04/27/2022 00:52:54 Father Hyperlipidem ia MIGRATION.478 [id number] Not available 04/27/2022 00:52:54 Maternal Grandmother Hypertensive disorder MIGRATION.602 5138091 Not available 04/27/2022 00:52:54 Maternal Grandmother Diabetes mellitus MIGRATION.452 [id number] Not available 04/27/2022 00:52:54 Maternal Grandmother Hyperlipidem ia MIGRATION.840 [id number] Not available 04/27/2022 00:52:54 Maternal Aunt Tuberculosis MIGRA TION.225 [id number] Not available 04/27/2022 00:52:54 Medical History Condition Response LUNG DISEASE/DISORDER Y OBESITY Y GERD/NAUSEA Y HYPERTENSION Y INSOMNIA Y HIGH CHOLESTEROL / HYPERLIPIDEMIA Y HAVE YOU BEEN HOSPITALIZED OR SEEN IN [facility] IN THE PAST YEAR ? Y DIABETES, TYPE Y HEADACHES/MIGRAINES Y Gynecological HistoryNo gynecological history recorded. Obstetrics History GPAL:G 0 P 0 0 0 0 Immunizations Vaccine Type Date Status Note Provider [facility] e and Address Organization Details Recorded Time COVID-19, mRNA, LNP-S, PF, 30 mcg/0.3 mL dose 08/26/2020 completed [facility] COVID-19, mRNA, LNP-S, PF, 30 mcg/0.3 mL dose 08/05/2020 completed Not Available [facility] 3 01:22:02 Influenza, split virus, quadrivalent, PF 01/10/2022 completed Not Available [facility] 3 01:22:03 Past Encounters Encounter ID Performer Location Encounter Start Date Encounter Closed Date Diagnosis/Indication Diagnosis SNOMED-CT Code Diagnosis ICD10 Code Diagnosis Note [id number] [facility] [place] [address] [place] [address] 05/04/2020 00:00:00 05/04/2020 16:30:03 [id number] [facility] [place] [address] [place] [address] 08/04/2020 00:00:00 08/04/2020 22:05:39 [id number] [facility] [place] [address] [place] [address] 12/01/2020 00:00:00 12/01/2020 16:42:55 [id number] [facility] [place] [address] [place] [address] 01/18/2021 00:00:00 01/18/2021 13:55:44 [id number] _ATHENA_M IGRATION_ DEFAULT_1 _1 , 05/06/2021 00:00:00 05/06/2021 20:34:03 [id number] [facility] [place] [address] [place] [address] 05/17/2021 00:00:00 05/17/2021 15:36:20 [id number] _ATHENA_M IGRATION_ DEFAULT_1 _1 , 07/01/2021 00:00:00 07/01/2021 18:04:40 [id number] [facility] [place] [address] [place] [address] 08/17/2021 00:00:00 08/17/2021 15:25:57 [id number] [facility] [place] [address] [place] [address] 11/29/2021 00:00:00 11/29/2021 14:11:03 [id number] [facility] [place] [address] [place] [address] 01/10/2022 00:00:00 01/10/2022 22:47:30 [id number] [facility] 4 Lelia Whyte, [address] [address] 08/17/2020 00:00:00 08/17/2020 19:27:11 [id number] [facility] Lelia Whyte, [address] [address] 09/16/2020 00:00:00 09/16/2020 17:31:30 [id number] [facility] 4 Lelia Whyte, [address] [address] 10/14/2020 00:00:00 10/14/2020 16:40:48 [id number] [facility] 4 Lelia Whyte, [address] [address] 11/11/2020 00:00:00 11/11/2020 16:25:13 [id number] [facility] 4 Lelia Whyte, [address] [address] 12/10/2020 00:00:00 12/10/2020 16:23:52 [id number] [facility] Lelia Whyte, [address] [address] 02/01/2021 00:00:00 02/01/2021 12:49:29 [id number] [facility] Lelia Whyte, [address] [address] 03/18/2021 00:00:00 03/18/2021 15:50:51 [id number] [facility] Lelia Whyte, [address] [address] 04/28/2021 00:00:00 04/28/2021 16:40:45 [id number] [facility] Lelia Whyte [address] [address] 05/26/2021 00:00:00 05/26/2021 18:15:58 [id number] [facility] Lelia Whyte [address] [address] 06/23/2021 00:00:00 06/23/2021 17:59:26 [id number] [facility] [address] Lelia Whyte [address] [address] 07/21/2021 00:00:00 07/21/2021 18:12:22 [id number] [facility] Wendy Whyte [address] [address] 09/23/2021 00:00:00 09/24/2021 15:34:34 [id number] [facility] Lelia Whyte [address] [address] 10/26/2021 00:00:00 10/27/2021 11:35:19 [id number] [facility] Wendy Whyte [address] [address] 12/23/2021 00:00:00 12/23/2021 17:16:35 [id number] [facility] Lelia Whyte [address] [address] 03/01/2022 00:00:00 03/01/2022 15:14:47 [id number] Lisa Zelaya NP [facility] Wendy Whyte [address] [address] 05/18/2022 16:17:51 05/18/2022 19:08:45 [id number] Jany Hernandez, [employer] [place] [address] [place] [address] 05/24/2022 13:49:11 05/25/2022 08:31:43 Chronic obstructive pulmonary disease 89231763 J44.9 Trelegy Ellipta with persistent thrush reactions. Remain on Breztri 2 puffs BID.Nebuli zer for PRN useContinu e rescue MDI PRN.She is aware of reportable signs and symptoms.C ontinue montelukas tRepeat PFT 11/2021 in chart, essentiall y unchangedR TC in 6 weeks, PRN for concerns Periodic l imb movement disorder 127158410 G47.61 ELIOT is not correctedC ontinue Ropinirole Obstructiv e sleep apnea syndrome 29359503 G47.33 Split night titration 03/21/14 with AHI 40.3.New machine riveter 02/17/20Do wnload today with 77% use greater [...] and lose weight Abscess of submandibular region 33397923 K12.2 CT Neck 12/13/21IM PRESSION:E rosion involving [...] drainable fluidcolle ction.Surg anson completed Chronic cough 26310597 R 05.3 She must quit smoking and maintain inhaler compliance Benzonatat e PRN onlyhistor y of multiple allergies to cat, dog, grassesCon tinue ClaritinSh e needs to see health and fitness professor - previous referralSh e will schedule this after surgery for abscess Nicotine dependence 5629 4008 Z87.891 Smoking cessation counseling and techniques reviewed at length. Literature reviewed.A void triggers, support groups.Dis traction techniques Greater than 3 but less than 10 minutes spent discussing cessation. Declines NRT.Discus sed Rx options if needed in the future. Dependence on supplemental oxygen 7029117622 07 Z99.81 2 liters with activity on DC from [facility] C home care: / [phone] is compliant and has good benefit [id number] Jany Hernandez, [facility] [place] [address] [place] [address] 07/05/2022 13:58:42 07/06/2022 08:23:18 Chronic obstructive pulmonary disease 65926886 J44.9 Trelegy Ellipta with persistent thrush reactions. Remain on Breztri 2 puffs BID.SHe has good benefitNeb ulizer for PRN useContinu e rescue MDI PRN.She is aware of reportable signs and symptoms.C ontinue montelukas tRepeat PFT 11/2021 in chart, essentiall y unchangedR TC in 6 weeks, PRN for concerns Periodic l imb movement disorder 905720982 G47.61 ELIOT is correctedI ncrease Ropinirole to 1.5mg po daily 2-3 hours prior to bedDiscuss ed SE and reportable signs and symptoms Obstructiv e sleep apnea syndrome 96825416 G47.33 Split night titration 01/23/15 with AHI 40.3.New machine riveter 02/17/20Do wnload today with 77% use greater [...] signs and symptoms Dependence on supplemental oxygen 5133216545 07 Z99.81 2 liters with activity on DC from [facility] C home care: / [phone] is compliant and has good benefitPla n to repeat this fall Dyspnea on exertion 6084 5006 R06.09 Multifacto ralLabs except RAST WNLShe must quit smoking and lose weight Chronic cough 40911597 R 05.3 She must quit smoking and maintain inhaler compliance Benzonatat e PRN only - order verbally called to pharmacy todayhisto ry of multiple allergies to cat, dog, grassesCon tinue ClaritinSh e needs to see health and fitness professor - previous referral Abscess of submandibular region 03729211 K12.2 CT Neck 12/13/21IM PRESSION:E rosion involving [...] Smoking cessation counseling and techniques reviewed at length. Literature reviewed.A void triggers, support groups.Dis traction techniques Greater than 3 but less than 10 minutes spent discussing cessation. Declines NRT.Discus sed Rx options if needed in the future. [id number] Lisa Zelaya NP [facility] [address] [address] 08/17/2022 15:15:54 08/17/2022 18:08:44 [id number] Lisa Zelaya NP [facility] [address] [address] 09/22/2022 15:15:15 09/26/2022 17:03:51 [id number] Lisa Zelaya NP [facility] [address] [address] 11/15/2022 15:50:53 11/15/2022 16:43:16 [id number] Jany Hernandez, [facility] [place] [address] [place] [address] 11/30/2022 16:05:16 11/30/2022 17:25:18 Chronic obstructive pulmonary disease 49364461 J44.9 Trelegy Ellipta with persistent thrush reactions. Remain on Breztri 2 puffs BID.SAmple s to patientSe has good benefitNeb ulizer for PRN useContinu e rescue MDI PRN.She is aware of reportable signs and symptoms.C ontinue montelukas tRepeat PFT 11/2021 in chart, essentiall y unchangedA dvised vaccines this fall Periodic l imb movement disorder 462064461 G47.61 ELIOT is correctedC ontinue Ropinirole to 1.5mg po daily 2-3 hours prior to bedDiscuss ed SE and reportable signs and symptoms Obstructiv e sleep apnea syndrome 74654139 G47.33 Split night titration 03/21/14 with AHI 40.3.New machine riveter 02/17/20Do wnload today with 80% use greater [...] signs and symptoms Dependence on supplemental oxygen 1362265610 07 Z99.81 2 liters with activity on DC from [facility] C home care: / [phone] is compliant and has good benefit Dyspnea on exertion 6084 5006 R06.09 Multifacto ralLabs except RAST WNLShe must quit smoking and lose weight Chronic cough 73244773 R 05.3 She must quit smoking and maintain inhaler compliance history of multiple allergies to cat, dog, grassesCon tinue ClaritinSh e needs to see health and fitness professor - previous referral Abscess of submandibular region 31033115 K12.2 CT Neck 12/13/21IM PRESSION:E rosion involving [...] Smoking cessation counseling and techniques reviewed at length. Literature reviewed.A void triggers, support groups.Dis traction techniques Greater than 3 but less than 10 minutes spent discussing cessation. Declines NRT.Discus sed Rx options if needed in the future. [id number] Lisa Zelaya NP [facility] [address] [place] [address] 02/09/2023 16:02:05 02/09/2023 17:31:11 [id number] Lisa Zelaya NP [facility] [address] [place] [address] 1 05/02/2023 14:38:16 05/02/2023 15:37:25 [id number] Lisa Zelaya NP [facility] [address] [place] [address] [address] 09/25/2023 15:27:14 09/25/2023 17:33:48 [id number] Lisa Zelaya NP [facility] [address] [place] [address] 11/30/2023 15:04:02 11/30/2023 15:47:13 [id number] Lisa Zelaya NP [facility] [address] [place] [address] 02/14/2024 14:44:14 02/14/2024 15:16:38 Health Concerns Section Related Observation LastModified by Organization Detai ls LastModified Time None Recorded Concern Status LastModified by Organization Details LastModified Time None Recorded Advance Directives Directive N: Payers Encounter Date Sequence Insurance Name Policy Number Policy Beth Covered Member ID Beth Member ID Guarantor Name 05/24/2022 1 [facility] ON OR AFTER 08/27/20 (MEDICAID REPLACEMENT - HMO) Bev Grossman [id number] Bev Grossman 07/05/2022 1 [facility] - DOS ON OR AFTER 20 (MEDICAID REPLACEMENT - HMO) Bev Prabhakar Grossman [id number] Bev Prabhakar Chauncey 11/30/2022 1 [facility] - DOS ON OR AFTER 20 (MEDICAID REPLACEMENT - HMO) Bev Prabhakar Chauncey [id number] Bev Prabhakar Chauncey Notes Date Note Type [...] in the last 3 months Jany Hernandez, [facility] [address] [facility] [address], [place], [address], [facility] [employer] 05/24/2022 16:45:47 07/05/2022 text/html Bev [...] respiratory infection in the last 4 months [facility] [address] [facility] [facility] [address], [place], [address], 5 CUPS and some sugar 07/05/2022 21:43:21 11/30/2022 text/html Bev presents today to follow up on COPD, cough, dyspnea, PLMD, ELIOT, nicotine dependenceRemains on Breztri with good clinical benefitDenies wheezing.Cough is daily but improvedShtania has significantly decreased activity tolerance and staminaContinues to use wheelchair for most activityAimee is living in a hotel and does not have a car currentlyShtania is compliant nightly with PAPShe does feel like her CPAP changes have improved sleep and fatigueSmoking about 1/4 PPDDenies chest pain and unintentional weight loss.No dysphagia or GERDNo respiratory infection since last OV [facility] [address] [facility], [place] [address], [place], [address], 5 CUPS and some sugar 11/30/2022 21:36:04 OBGyn Episode No OBEpisode recorded.
--- OUTSIDE RECORDS SUMMARY | 2024-04-04 10:54 | XMS_ITS | Clinical Summary ---
Author Organization [facility] Address [address] [place] [address] Phone Care Team Providers Care Family Practice Doctor Name Role Phone Jorge Luis Hill MD Primary Care Provider [phone] Allergies No known active allergies Medications aspirin [...] 120 tablet 2 Active cholecalciferol (VITAMIN D-3) 23643 unit tablet Take 1 tablet (50,000 Units [...] remission Assessment & Plan (02/13/2024 11:57 AM FORENSIC ARTIST): Quit in November of 2023 She is due for annual CT chest in February of 2023 Chronic respiratory failure with hypoxia, on home O2 therapy ([facility]) 02/13/2024 Assessment & Plan (02/13/2024 11:58 AM FORENSIC ARTIST): Continue supplemental oxygen for saturations 90% I have advised her to get a home pulse oximeter and bring it to her next visit for comparison She has a visit with our chairman ceo upcoming and will likely have an echocardiogram. I have asked her to have this faxed over to our office for review as well Diabetic peripheral neuropat hy associated with type 2 diabetes mellitus ([facility]) 08/07/2023 Assessment & Plan (08/07/2023 [...] (01/03/2022): Added automatically from request for surgery [id number] Smoking 12/14/2021 Assessment & Plan (12/19/2021 11:55 [...] months Assessment & Plan (01/14/2022 11:03 AM FORENSIC ARTIST): - Pt has completed 4 weeks of [...] tract. If no surgical plan, Resume diet. Hvac Estimator re supplements. Pain control with prn tylenol [...] disease) Assessment & Plan (02/13/2024 11:59 AM FORENSIC ARTIST): Continue Symbicort twice daily Continue Spiriva twice [...] 12/13/2021 Assessment & Plan (02/13/2024 11:57 AM FORENSIC ARTIST): Continue PAP with all sleep She is aware of the risks of uncorrected sleep apnea Assessment & Plan (12/21/2021 12:03 PM CDT): Exacerbated by BMI 42. Alert, oriented. Outpatient PSG Assessment & Plan (12/13/2021 11:24 AM CDT): Exacerbated by BMI 42. Alert, oriented. Morbid obesity with BMI of 40.0-44.9, adult 11/27 Assessment & Plan (12/14/2021 3:10 PM CDT): BMI 42.07, 104.3kg this admit. Hvac Estimator to see tank terminal gauger weight loss management goals with PCP, hx DM, HTN, ELIOT & may benefit from bariatric evaluation. Assessment & Plan (12/13/2021 10:25 AM CDT): BMI 42.07, 104.3kg this admit. Hvac Estimator to see senior care weight loss management goals with PCP, hx DM, HTN, ELIOT & may benefit from bariatric evaluation. Pancreatic cyst 01/10/2020 Overview (01/10/2020): Added automatically from request for surgery [id number] Encounters Date Type Department Care Team Description 03/28/2024 Orders Only [facility] at [address] [place] [address] Jany Hernandez, SURVEYOR GEODETIC Pulmonary nodules (Primary Dx) 03/25/2024 12:27 PM FORENSIC ARTIST - 03/25/2024 11:59 PM FORENSIC ARTIST Hospital Encounter [facility] [address] [place] [address] Nicotine dependence, cigarettes, uncomplicated Discharge Disposition: Discharge to home or self care 03/22/2024 Telephone [facility] [address] [place] [address] Jany Marina RN 02/12/2024 3:00 PM FORENSIC ARTIST Office Visit [facility] at [address] [place] [address] Jany Hernandez NP Centrilobular emphysema [...] HYSTERECTOMY W/ BILATERAL SALPINGOOPHORECTOMY 02/27/1995 - 02/27/1996 BEAUTY SHOP MANAGER SHUNT INSERTION 02/27/2010 - 02/26/2011 COLONOSCOPY BRAIN [...] often do you attend chur ch or latter day services? Never 12/22/2021 Do you belong to any clubs o r organizations such as advent groups, unions, fraternal or athletic groups, or [...] on file Legal Sex Female 1:34 AM FORENSIC ARTIST Gender Identity Not on file Sexual Orientation Not on file Obstetrics History Last Filed Vital Signs Vital Sign Reading Time Taken Comments Blood Pressure 96/63 02/12/2024 2:42 PM FORENSIC ARTIST Pulse 86 02/12/2024 2:42 PM FORENSIC ARTIST Temperature 36.1 C (96.9 F) 02/12/2024 2:42 PM FORENSIC ARTIST Respiratory Rate 18 02/12/2024 2:42 PM FORENSIC ARTIST Oxygen Saturation 92% 02/12/2024 2:42 PM FORENSIC ARTIST Inhaled Oxygen Concentration - - Weight 85.3 kg (188 lb) 03/25/2024 12:44 PM FORENSIC ARTIST Height 162.6 cm (5' 4 ) 03/25/2024 12:44 PM FORENSIC ARTIST Body Mass Index 32.27 03/25/2024 12:44 PM FORENSIC ARTIST Plan of Treatment Health Maintenance Due Date [...] Panel 02/15/2023 02/15/2022, 2022 Covid-19 Vaccine (5 2023-2 5 season) 2023 03/02/2022, 10/11/2021, 08/26/2020, Additional history exists Influenza Vaccine (#1) 2023 , 01/10/2022, 03/05/2021 Hemoglobin A1C 02/06/2024 08/07/2023, 03/31, 12/13/2021, Additional history exists eGFR 08/02/2024 08/03/2023, 06/28, 12/28/2022, Additional history exists Lung Cancer Screening 09/21/2024 03/25/2024 DTaP/Tdap/Td Vaccine (2 - Td or Tdap) 12/16/2029 12/17/2019 Hepatitis C Screening Completed 12/15/2021 Medical Devices Implanted Type Area Boiler Helper Device Identifier Shelf Expiration Date Model / Serial / Lot Shunt Implanted:Qty: 2 Shunt Brain Synovis Miromatrix Medical Microvascular 3.5mm Ring Pin Protective Cover Jaw Assembly Latex Free [id number] - [id number] Implanted:Qty: 1 on 2022 by Ricci Shelton MD at [facility] Mandible [employer] [id number] 04/12/2026 [id number] / / [id number] Álvaro Craniomaxillofaci al 2mm Primary Reconstruction Customize Mandible Bebeto Plate Bone [id number] - [id number] Implanted:Qty: 1 on 2022 by Ricci Shelton MD at [facility] Mandible Creighton Craniomaxillofacial [id number] / / Creighton Craniomaxillofaci al [employer] [place] 2 2.3mm 6mm Lock Cross Pin Maxillofacial [id number] - [id number] Implanted:Qty: 1 on 2022 by Ricci Shelton MD at [facility] Mandible Álvaro Craniomaxillofacial [id number] / / Álvaro Craniomaxillofaci al [employer] [place] 2 2.3mm 8mm Lock Cross Pin Maxillofacial [id number] - [id number] Implanted:Qty: 2 on 2022 by Ricci Shelton MD at [facility] Mandible Álvaro Craniomaxillofacial [id number] / / Creighton Craniomaxillofaci al [employer] [place] 2 2.3mm 12mm Lock Cross Pin Maxillofacial [id number] - [id number] Implanted:Qty: 3 on 2022 by Ricci Shelton MD at [facility] Mandible Creighton Craniomaxillofacial [id number] / / Creighton Craniomaxillofaci al [employer] [place] 2 2mm 6mm Self Tap Cross Pin Maxillofacial 50 - [id number] Implanted:Qty: 4 on 2022 by Ricci Shelton MD at [facility] Mandible Creighton Craniomaxillofacial 50- / / Creighton Craniomaxillofaci al [employer] [place] 2 2mm 6mm Lock Cross Pin Maxillofacial Screw 50 - [id number] Implanted:Qty: 1 on 2022 by Ricci Shelton MD at [facility] Mandible Álvaro Craniomaxillofacial 50 / / Explanted Type Area Boiler Helper Device Identifier Shelf Expiration Date Model / Serial / Lot Álvaro Craniomaxillofaci al [employer] [place] 2 2mm 8mm Self Tap Cross Pin Maxillofacial 50 - [id number] Explanted:Qty: 4 on 2022 at [facility] Mandible Creighton Craniomaxillofacial 50 / / Creighton Craniomaxillofaci al [employer]inger [place] 2 2.3mm 8mm Self Tap Cross Pin Maxillofacial [id number] - [id number] Explanted:Qty: 1 on 2022 at [facility] Mandible Álvaro Craniomaxillofacial [id number] / / [employer] Probe Doppler 17.4cm Standard Cuff Implantable 20mhz Latex Free Sterile Microvascular Anastomoses Carmen [id number] - [id number] Implanted:Qty: 1 on 2022 by Ricci Shelton MD at [facility] Explanted:Qty: 1 on 02/14/2022 by Marie Parr PA Right: Neck [facility] [id number] 10/27/2024 [id number] / / [id number] Procedures Procedure Name Priority Date/Time Associated Diagnosis Comments CT LUNG CANCER SCREENING Schedule Routine, Read Routine (OP Routine) 03/25/2024 12:46 PM FORENSIC ARTIST Nicotine dependence, cigarettes, uncomplicated POCT HEMOGLOBIN A1C Routine 08/07/2023 3:17 PM CDT Type 2 diabetes mellitus with hyperglycemia, without long-term current use of insulin (CMS/HCC) (HCC) EGFR Routine 08/03/2023 1:59 PM CDT Osteoporosis, unspecified osteoporosis type, unspecified pathological fracture presence LIPID PANEL STAT 02/15/2022 2:00 PM FORENSIC ARTIST HEPATITIS PANEL, ACUTE Routine 12/15/2021 11:19 PM CDT from Last 3 Months or Most Recently Relevant to Health Maintenance Results * CT Lung Cancer Screening (03/25/2024 12:46 PM FORENSIC ARTIST) Anatomical Region Laterality Modality Chest N/A Computed Tomogra phy 03/26/2024 9:54 AM FORENSIC ARTIST Narrative 03/26/2024 10:03 AM FORENSIC ARTIST EXAM DESCRIPTION: CT LUNG CANCER SCREENING REASON [...] Almita Miller D.O. PS: PS Report ID: [id number] Reading Location: [id number] Procedure Note Almita Miller DO - 03/26/2024 [...] Almita Miller D.O. PS: PS Report ID: [id number] Reading Location: [place] [address] Ethan Leung MD IMG CT PROCEDURES Final [...] MD LAB BLOOD ORDERABLES Final Resu lt [facility] Department [place] [address] * (ABNORMAL) Lipid panel (02/15/2022 2:00 PM FORENSIC ARTIST) Cholesterol 161 30 - 199 mg/dL [facility] Comment: Interpretive Data Ages < or = [...] on 2017. Triglycerides 253(H) <=149 mg/dL [facility] Comment: Interpretive Data Ages < or = [...] revised on 2017. HDL 42 >=40 mg/dL [facility] Comment: Interpretive Data Ages < or = [...] on 2017. LDL, calculated 68 <=129 mg/dL [facility] Comment: Interpretive Data Ages < or = [...] on 2017. Non-HDL Cholesterol 119 mg/dL [facility] Comment: Interpretive Data Ages < or = [...] revised on 2017. Chol/HDL ratio 4 [facility] Blood 02/15/2022 2:00 PM FORENSIC ARTIST 02/15/2022 5:52 PM FORENSIC ARTIST us Neri Loco MD LAB BLOOD ORDERABLES Fi nal Result [facility] Department [place] [address] * Hepatitis panel, acute (12/15/2021 11:19 PM CDT) Hep A IgM Nonreactive Nonreactive Comment: Interpretive Data: If Hep A IgM Ab is reported as Equivocal, a new sample should be drawn in two weeks for testing. Current interpretive data was last revised on 19. Hep B core IgM Nonreactive Nonreactive [facility] Comment: Interpretive Data If HepB Core IgM Ab is reported as Equivocal, a new sample should be drawn in two weeks for testing. Current interpretive data was last revised on 19. Hep C Ab Nonreactive Nonreactive [facility] Comment:Antibodies to HCV no t detected. Does NOT exclude the possibility of recent exposure to HCV. HepBsAg Nonreactive Nonreactive [facility] Blood 12/15/2021 11:1 9 PM CDT 12/16/2021 12:30 AM CDT Orly Fine MD LAB MICROBIOLOGY - GENERAL O RDERABLES Edited Result - Final [facility] Department [place] [address] from Last 3 Months or Most Recently Relevant to Health Maintenance Additional Health Concerns Infection Onset Date Last Indicated MDR gram neg/ESBL 2022 2022 Insurance Advance Directives For more information, please contact: [phone] * Full Code (Latest Code Status on File) Date Activated Date Inactivated Comments 04/26/2022 9:48 PM 05/03/2022 6:39 PM * Full Code Date Activated Date Inactivated Comments 2022 9:27 PM 02/14/2022 9:56 PM * Full Code Date Activated Date Inactivated Comments 12/13/2021 5:40 PM 12/21/2021 6:14 PM * Full Code Date Activated Date Inactivated Comments 01/22/2020 1:18 PM 01/22/2020 10:15 PM Care Teams Family Practice Doctor Relationship Specialty Start Date End Date Jorge Luis Hill MD PCP - General 04/30/18
--- OUTSIDE RECORDS SUMMARY | 2024-04-04 10:54 | XMS_ITS | Encounter Summary ---
Author Organization [facility] Address [address] [place] [address] Phone Care Team Providers Care Finishing Wire Sawyer Name Role Phone Jorge Luis Hill MD Primary Care Provider [phone] Encounter Details Date Type Department Care Team (Late st Contact Info) Description 05/07/2022 Documentation [facility] - [facility] [address] [facility] 11th [place] [address] [place] [id number] Amadeo Bazzi MD [address] [place], [place] [id number] Social History Tobacco Use Types Packs/Day Years [...] How often do you attend chur or jain services? Never 12/22/2021 Do you belong to any clubs o r organizations such as pentecostalism groups, unions, fraternal or athletic groups, or [...] a long term (including now)? No 12/22/2021 Comments No Sex and Gender Information Value Date Recorded Sex Assigned at Not on file Legal Sex Female 1:34 AM OFFICE HELPER CLERICAL Gender Identity Not on file Sexual Orientation Not on file documented as of this encounter Plan of Treatment Not on file documented as of this encounter Visit Diagnoses Not on filedocumented in this encounter Additional Health Concerns Infection Onset Date Last Indicated Resolved Time MDR gram neg/ESBL 2022 2022 documented as of this encounter Care Teams Finishing Wire Sawyer Relationship Specialty Start Date End Date Jorge Lius Hlil MD PCP - General 04/30/18 documented as of this encounter
--- OUTSIDE RECORDS SUMMARY | 2024-04-04 10:54 | XMS_ITS | Clinical Summary ---
Author Organization [facility] Address [facility]ly [facility], [id number] [place] [address] Care Team Providers Care Patriot Missile Air Defense Artillery Name Role Phone Jorge Luis Hill MD Primary Care Provider [phone] Allergies No known active allergies Medications rosuvastatin [...] capsule 2 Active vitamin D2, ergocalciferol , 02016 UNITS capsule 2 Active escitalopram 20 MG [...] Comments Blood Pressure 106/76 05/05/2021 12:15 PM LEGAL OFFICER Pulse 83 05/05/2021 12:15 PM LEGAL OFFICER Temperature 36.1 C (96.9 F) 05/05/2021 11:58 AM LEGAL OFFICER Respiratory Rate 14 05/05/2021 12:15 PM LEGAL OFFICER Oxygen Saturation 94% 05/05/2021 12:15 PM LEGAL OFFICER Inhaled Oxygen Concentration - - Weight 108.4 kg (239 lb) 05/05/2021 10:03 AM LEGAL OFFICER Height 157.5 cm (5' 2 ) 05/05/2021 10:03 AM LEGAL OFFICER Body Mass Index 43.71 05/05/2021 10:03 AM LEGAL OFFICER Plan of Treatment Health Maintenance Due Date Last Done Comments Annual Physical 02/04/1968 Pneumococcal Vaccine: Pediatrics (0 to 5 Years) and At-Risk Patients (6 to 64 Years) (1 of 2 - PCV) 1971 Hepatitis C 1983 Mammogram Screening 2005 Zoster Vaccines (1 of 2) 2015 COVID-19 Vaccine (3 - 2023-2 5 season) 2023 08/26/2020, 08/05/2020 Influenza [...] Diagnosis Comments COLONOSCOPY Routine 05/05/2021 11:05 AM LEGAL OFFICER from Last 3 Months or Most Recently Relevant to Health Maintenance Results * Colonoscopy (05/05/2021 11:05 AM LEGAL OFFICER) Estuardo Arriola MD - 05/05/2021 11:05 AM LEGAL OFFICER Estuardo Wells MD 05/05/2021 12:05 PM ESTUARDO WELLS MD, FACG, FACP COLONOSCOPY 05/05/2021 The procedure of colonoscopy, its indications, alternatives of barium studies and risks including perforation, bleeding, infection, reaction to medication as well as the possible need for blood or surgery were discussed with the patient prior to the procedure. The patient voices understanding, agrees to proceed and provides informed consent. INDICATION: Personal history of adenomatous colon polyps. POST-OP: Four polyps removed. SEDATION: Per Anesthesia PREP: Good. With the patient in the left lateral decubitus position, the Olympus [id number] colonoscope was introduced into the rectum and advanced [...] polypectomy without bleed. No masses, AVMs, colitis or diverticulosis seen. No complications, blood loss or [...] of liver 04-14-2021 but was inpatient at [facility] - Will check to see if she had CT scan while inpatient Thank you for allowing me to care for your patient. She will follow-up with Dr. Hill as needed. Estuardo Wells M.D. Cc: Dr. Nithin Hill Estuardo Wells MD GI PROCEDURE ORDERABLES Fin al Result from Last 3 Months or Most Recently Relevant to Health Maintenance Insurance Care Teams Patriot Missile Air Defense Artillery Relationship Specialty Start Date End Date Jorge Luis Hill MD [address] [place] [id number] PCP - General FAMILY PRACTICE 11/25/19
--- OUTSIDE RECORDS SUMMARY | 2024-04-04 10:54 | XMS_ITS | Encounter Summary ---
Author Organization [facility] Address [address] [place] [address] Phone Care Team Providers Care Wheel Of Fortune Dealer Name Role Phone Jorge Luis Hill MD Primary Care Provider [phone] Encounter Details Date Type Department Care Team (Late st Contact Info) Description 05/03/2022 Telephone [facility] [place] [address] [address] [place] [address] Janette Holcomb RN Social History Tobacco Use [...] often do you attend chur ch or confucianist services? Never 12/22/2021 Do you belong to [...] on file Legal Sex Female 1:34 AM HOTEL SERVICES SUPERVISOR Gender Identity Not on file Sexual Orientation Not on file documented as of this encounter Plan of Treatment Not on file documented as of this encounter Visit Diagnoses Not on filedocumented in this encounter Additional Health Concerns Infection Onset Date Last Indicated Resolved Time MDR gram neg/ESBL 2022 2022 documented as of this encounter Care Teams Wheel Of Fortune Dealer Relationship Specialty Start Date End Date Jorge Luis Hill MD PCP - General 04/30/18 documented as of this encounter
--- OUTSIDE RECORDS SUMMARY | 2024-04-04 10:54 | XMS_ITS | Patient Health Summary ---
Author Organization [facility] Address [address] [place] [address] Care Team Providers Care Industrial Coffee Grinder Name Role Phone Jorge Luis Hill MD Primary Care Provider [phone] Note from [facility],non-owned Affiliates and Associated Physician Practices is amultiple site organization consisting of ambulatory clinics and hospital sitesin [place], [place], [place] and [place]. This disclosure is being madepursuant to the Care Everywhere program and may not contain all information available regarding this patient. Last updated 17.[facility] Allergies No known active allergies Medications [...] (one) tablet by mouth every morning * frmpqaj-udebzxreerd-dubfumxvaa (Breztri Aerosphere) 160-9-4.8 MCG/ACT inhaler (Started 11/30/2022) [...] HCl (Narcan) 4 MG/0.1ML nasal spray(Started 05/19/2022) [place] 40 (forty) sprays into the nose as [...] Comments Blood Pressure 155/92 03/24/2023 2:17 PM [employer] Pulse 101 03/24/2023 2:17 PM [employer] Temperature 36.7 C (98 F) 03/24/2023 2:17 PM [employer] Respiratory Rate 18 03/24/2023 2:17 PM [employer] Oxygen Saturation 96% 03/24/2023 2:17 PM [employer] Inhaled Oxygen Concentration - - Weight 84.3 kg (185 lb 12.8 oz) 03/24/2023 2:17 PM [employer] Height 162.6 cm (5' 4 ) 03/24/2023 2:17 PM [employer] Body Mass Index 31.89 03/24/2023 2:17 PM [employer] Procedures * XR SHUNT SERIES(Performed 03/24/2023) Performed for History of brain shunt * XR LUMBAR SPINE 4VW OR MORE(Performed 03/24/2023) Performed for Chronic back pain greater than 3 months duration * [place] FINE NEEDLE ASPIRATION(Performed 03/15/2023) Performed for Multinodular goiter, Thyroid nodule * FINE NEEDLE ASPIRATION (STL)(Performed 03/15/2023) Performed for Multinodular goiter, Thyroid nodule Results * XR SHUNT SERIES (03/24/2023 4:02 PM [employer]) Anatomical Region Laterality Modality Abdomen, Pelvis Radiographic Yani ging 03/26/2023 9:35 AM [employer] Impressions 03/26/2023 10:05 PM [employer] IMPRESSION: Intact left parietal approach ventriculoperitoneal shunt. Report dictated by Jamil Martin MD, (resident services manager). I, Petey Garnett MD have personally reviewed and interpreted this examination/study. > Interpreting Provider: Petey Garnett MD on 03/26/2023 10:05 PM Narrative 03/26/2023 10:05 PM [employer] PROCEDURE: XR SHUNT SERIES, DATE/TIME OF EXAM: 03/24/2023 4:02 PM, LOCATION [facility] INDICATION: Z98.2: History of brain shunt [...] DATE/TIME OF EXAM: 03/24/2023 4:02 PM, LOCATION [facility] INDICATION: Z98.2: History of brain shunt [...] Report dictated by Jamil Martin MD, (resident services manager). IPetey MD have personally reviewed and interpreted this examination/study. > Interpreting Provider: Petey Garnett MD on 03/26/2023 10:05 PM Giovanni Rowley MD DIAGNOSTIC IMAGING O RDERABLES * XR LUMBAR SPINE 4VW OR MORE (03/24/2023 4:02 PM [employer]) Anatomical Region Laterality Modality Spine Radiographic Yani ging 03/26/2023 9:29 AM [employer] Impressions 03/26/2023 10:06 PM [employer] Impression: There are 5 nonrib-bearing vertebral bodies and a lumbarized S1. The first vertebral body without a rib is designated as L1. The L2 vertebral body shows mild compression deformity without significant height loss. There is no malalignment or subluxation. There is moderate facet arthropathy lower lumbar spine. There is extensive atherosclerosis. > Dictated by Jamil Martin MD I, Ramy Shoela, MD have personally reviewed and interpreted this examination/study. > Interpreting Provider: Petey Garnett MD on 03/26/2023 10:06 PM Narrative 03/26/2023 10:06 PM [employer] PROCEDURE: XR LUMBAR SPINE 4VW OR MORE [...] Rowley MD DIAGNOSTIC IMAGING O RDERABLES * AZ FINE NEEDLE ASPIRATION (03/15/2023 3:42 PM [employer]) Narrative Bridger Qureshi APRN-CNP - 03/15/2023 3:42 PM [employer] Bridger Qureshi APRN-CNP 03/15/2023 3:45 PM Procedure note Procedure: Fine-needle aspiration Indication:Thyroid nodule Site: left Thyroid Details: The lesion was visualized with an ultrasound probe. A 25-gauge needle was used to aspirate the lesion under direct visualization with attention directed towards the capsule. This was initially reviewed with cytopathology onsite and additional tissue was recommended. A total of 4 passes were made. There was minimal bleeding. An ice pack was placed to the site for 10 minutes. The patient tolerated this very well. Start time: 1020 Pause Time: 1030 Stop Time: 1130 Bridger Qureshi AUTOMATIC COIN MACHINE MECHANIC-MANAGER MULTICULTURAL PROCEDURE/ MINOR SURGICAL ORDERABLES * FINE NEEDLE ASPIRATION (STL) (03/15/2023 11:30 AM [employer]) Case Report Medical Cytology Report Case: [id number] Authorizing Provider: Bridger Qureshi, Collected: 03/15/2023 11:30 AM AUTOMATIC COIN MACHINE MECHANIC-MANAGER MULTICULTURAL Ordering Location: [facility] Otolaryngology Received: 03/15/2023 01:46 PM Pathologist: Ronak Kilpatrick MD Specimen: Neck Mass, left thyroid nodule TR4 03/17/2023 12:43 PM [facility] Specimen Adequacy Unsatisfactory cellularity for evaluation. 03/17/2023 12:43 PM [facility] Final Diagnosis Thyroid, left nodule, US-FNA: - Benign (TBSRTC Category II), colloid nodule (see description) - Adequacy: Colloid only 03/17/2023 12:43 PM [facility] Clinical History The patient is a 58 year-old female with history of thyroid nodule that underwent FNA. 03/17/2023 12:43 PM [facility] Gross Description 1 Thinprep Pap stained slide from a 25 cc collection fluid 03/17/2023 12:43 PM [facility] Microscopic Description A ThinPrep slide is essentially devoid of follicular epithelium. However colloid is present, suggestive of a benign colloid nodule. 03/17/2023 12:43 PM [facility] Pathologist Location at [facility] 03/17/2023 12:43 PM [facility] Disclaimer The performance characteristics of all immunohistochemical and indirect immunofluorescence stains (if any) cited in this report were determined by the Histopathology Laboratory of [facility]. Some of these tests rely on the use of analyte-specific reagents and are subject to specific labeling requirements by the [place] Food and Drug Administration. Such tests were developed by the Histology Laboratory of [facility] and have not been cleared or [...] the attending (teaching) pathologist. 03/17/2023 12:43 PM [employer] [facility] Embedded Images 03/17/2023 12:43 PM [employer] [facility] Pathology/Cytolo gy MASS OF NECK / Unknown Collection / Unknown 03/15/2023 11:30 AM [employer] 03/15/2023 1:46 PM [employer] Bridger Qureshi AUTOMATIC COIN MACHINE MECHANIC-MANAGER MULTICULTURAL LAB - PATH OLOGY/CYTOLOGY ORDERABLES Performing Organization Address City/State/[facility] Co de Phone Number [facility] [address] [phone] Care Teams Industrial Coffee Grinder Relationship Specialty Start Date End Date Jorge Luis Hill MD [address] [place] [address] [address] [place] [address] PCP - General 02/10/17
--- OUTSIDE RECORDS SUMMARY | 2024-04-04 10:54 | XMS_ITS | Clinical Summary ---
Author Organization [facility] Address [address] [address] Phone Care Team Providers Care Entertainment Lawyer Name Role Phone Jorge Luis Hill MD Primary Care Provider [phone] Allergies No known active allergies Medications Medication [...] Comments Influenza Vaccine (#1) 2023 Care Teams Entertainment Lawyer Relationship Specialty Start Date End Date Jorge Luis Hill MD PCP - General Family Medicine 08/28/18
--- OUTSIDE RECORDS SUMMARY | 2024-04-04 10:54 | XMS_ITS | Clinical Summary ---
Author Organization [facility] Address [address] [place] [address] Care Team Providers Care Blending Kettle Tender Name Role Phone Jorge Luis Hill MD Primary Care Provider [phone] Medications PROAIR HFA 90 mcg/actuation inhaler INHALE [...] mg tablet Active naloxone (Narcan) 4 mg/spray [place], Non-Aerosol Narcan 4 mg/actuation nasal spray 03/18/19 [...] 95 12/05/2022 3:27 PM CDT Temperature 36.3 C (97.4 F) 12/05/2022 3:27 PM CDT Respiratory Rate 20 12/05/2022 3:27 PM CDT [...] Insurance [employer] Care Teams Blending Kettle Tender Relationship Specialty Start Date End Date Jorge Luis Hill MD PCP - General Emergency Medicine 05/30/18
--- OUTSIDE RECORDS SUMMARY | 2024-04-04 10:54 | XMS_ITS | Referral Summary ---
Author Organization [facility] Address [address] [place] [address] Care Team Providers Care Healthcare Social Worker Name Role Phone Jorge Luis Hill MD Primary Care Provider [phone] Source Comments [facility],non-owned Affiliates and Associated Physician Practices is amultiple site organization consisting of ambulatory clinics and hospital sitesin [place], [place]. This disclosure is being madepursuant to the Care Everywhere program and may not contain all information available regarding this patient. Last updated 17.[facility] Allergies No known active allergies Medications * [...] naloxone HCl (Narcan) 4 MG/0.1ML nasal spray [place] 40 (forty) sprays into the nose as [...] Comments Blood Pressure 155/92 03/24/2023 2:17 PM [employer] Pulse 101 03/24/2023 2:17 PM [employer] Temperature 36.7 C (98 F) 03/24/2023 2:17 PM [employer] Respiratory Rate 18 03/24/2023 2:17 PM [facility] Oxygen Saturation 96% 03/24/2023 2:17 PM [facility] Inhaled Oxygen Concentration - - Weight 84.3 kg (185 lb 12.8 oz) 03/24/2023 2:17 PM [employer] Height 162.6 cm (5' 4 ) 03/24/2023 2:17 PM [employer] Body Mass Index 31.89 03/24/2023 2:17 PM [facility] Plan of Treatment Upcoming Encounters Date Type Department Care Team (Late st Contact Info) Description 05/31/2024 1:15 PM CDT Appointment [facility] [address] [place] [address] Bridger Qureshi, BOTTOMING ROOM SUPERVISOR-COATING OPERATOR [address] [address] [place] [address] Care Teams Healthcare Social Worker Relationship Specialty Start Date End Date Jorge Luis Hill MD [address] [place] [address] PCP - General 02/10/17
--- OUTSIDE RECORDS SUMMARY | 2024-04-04 10:54 | XMS_ITS | Continuity of Care Document ---
Author Organization [facility] Address [address] [place] [address] Phone Care Team Providers Care General Dentist Name Role Phone Eleno Valenzuela MD Unavailable [...] Diagnoses Date Provider Providers Copied on Encounter [facility], [address] [place], [address], tel:[phone] [facility] No Information 4 Nicolas Smith [address] [place], [place], [address] , [place]. tel:[phone] Referring Provider: Lala Higgins, [place], [place], [address]. tel:[phone] PREV VISIT, EST, AGE 40-64 [facility], [address] [place] [place], [place], [address], tel:[phone] [facility] PHysical (chief complaint) Routine Medical ExamHypertension, UnspecifiedGenera lized anxiety disorderHeadacheR outine Medical Exam 0 4 Nicolas Smith [address] [facility] [place], [address] , [place]. tel:[phone] Referring Provider: Lala Higgins [address], [place], [place], [address]. tel:[phone] OFFICE/OUTPA TIENT VISIT, [facility], [address], [place], [place], [address], [place] tel:[phone] [facility] [place] back pain (chief complaint)HT N (chief complaint)HL P (chief complaint)[place] PD (chief complaint) Dietary surveillance and counselingCOPDLum bagoHypertension, UnspecifiedOther and unspecified hyperlipidemia 4 Nicolas Johansen. [address], [place], [place], [address] , [place]. tel:[phone] Referring Provider: Lala Higgins [address], [place], [place], [address]. tel:[phone] OFFICE/OUTPA TIENT VISIT, [facility], [address], [place], [place], [address], [place] tel:[phone] [facility] [place] back pain (chief complaint)HT N (chief complaint)HL P (chief complaint)an xiety (chief complaint) Dietary surveillance and counselingHypoten tanja, UnspecifiedOther and unspecified hyperlipidemiaGen eralized anxiety disorderLumbago 4 Nicolas Smith [address], [place], [place], [address] , [place]. [phone] Referring Provider: Lala Higgins [address], [place], [place], [address]. tel:[phone] OFFICE/OUTPA TIENT VISIT, [facility], [address], [place], [place], [address], [place] tel:[phone] [facility] [place] hypotension (chief complaint)ba ck pain (chief complaint)fa tigue (chief complaint)easton nd fx (chief complaint) Dietary surveillance and counselingHypoten tanja, UnspecifiedLumbag oFatigue / MalaiseClosed fracture of base of other metacarpal bone(s) 4 Nicolas Johansen. [address], [place], [place], [address] , [place]. tel:[phone] Referring Provider: Lala Higgins [address], [place], [place], [address]. tel:[phone] OFFICE/OUTPA TIENT VISIT, [facility], [address], [place], [place], [address], [place] tel:[phone] [facility] [place] back pain (chief complaint)so re throat (chief complaint)easton nd pain (chief complaint) Dietary surveillance and counselingPain in joint involving handLumbagoThroat pain 4 Nicolas Smith [address], [place], [place], [address] , [place]. tel:[phone] Referring Provider: Lala Higgins [address], [place], [place], [address]. tel:[phone] OFFICE/OUTPA TIENT VISIT, [facility], [address], [place], [place], [address], [place] tel:[phone] [facility] [place] depression (chief complaint)CO PD (chief complaint)ba ck pain (chief complaint) Dietary surveillance and counselingLumbago COPDHypertension, UnspecifiedRESTLE SS LEGS SYNDROME 4 Nicolas Smith [address], [place], [place], [address] , [place]. tel:[phone] Referring Provider: Lala Higgins [address], [place], [place], [address]. tel:[phone] OFFICE/OUTPA TIENT VISIT, [facility], [address], [place], [place], [address], [place] tel:[phone] [facility] [place] anxiety (chief complaint)ba ck pain (chief complaint)UT I (chief complaint)[place] PD (chief complaint) Dietary surveillance and counselingUrinary Tract InfectionGenerali zed anxiety disorderLumbagoCO PD 4 Nicolas Smith [address], [place], [place], [address] , [place]. tel:[phone] Referring Provider: Eleno Valenzuela, [address], [place], [place], [address]. tel:[phone] OFFICE/OUTPA TIENT VISIT, [facility], [address], [place], [place], [address], [place] tel:[phone] [facility] [place] back pain (chief complaint)sw eet smell in urine (chief complaint)HT N (chief complaint)in somnia (chief complaint) Dietary surveillance and counselingLumbago Metabolic SyndromeHypertens ion, UnspecifiedInsomn ia, Other 3 Nicolas Johansen. [address], [place], [place], [address] , [place]. [phone] Referring Provider: Eleno Valenzuela, [address], [place], [place], [address]. tel:[phone] OFFICE/OUTPA TIENT VISIT, [facility], [address], [place], [place], [address], [place] tel:[phone] [facility] [place] back pain (chief complaint)an xiety (chief complaint)fa tigue (chief complaint) Dietary surveillance and counselingLumbago Generalized anxiety disorderFatigue / Malaise 3 Nicolas Johansen. [address], [place], [place], [address] , [place]. tel:[phone] Referring Provider: Lala Higgins [address], [place], [place], [address]. tel:[phone] OFFICE/OUTPA TIENT VISIT, [facility], [address], [place], [place], [address], [place] tel:[phone] [facility] [place] HTN (chief complaint)ba ck pain (chief complaint)an xiety (chief complaint) Dietary surveillance and counselingHyperte nsion, UnspecifiedLumbag oGeneralized anxiety disorder 3 Nicolas Johansen. [address], [place], [place], [address] , [place]. tel:[phone] Referring Provider: Eleno Valenzuela, [address], [place], [place], [address]. tel:[phone] OFFICE/OUTPA TIENT VISIT, [facility], [address], [place], [place], [address], tel:[phone] [facility] [place] back pain (chief complaint)an xiety (chief complaint)HT N (chief complaint)[place] PD (chief complaint) Dietary surveillance and counselingLumbago Hypertension, UnspecifiedGenera lized anxiety disorderCOPD 3 Nicolas Johansen. [address], [place], [place], [address] , [place]. [phone] Referring Provider: Eleno Valenzuela, [address], [place], [place], [address]. tel:[phone] OFFICE/OUTPA TIENT VISIT, [facility], [address], [place], [place], [address], [place] tel:[phone] [facility] [place] otalgaia (chief complaint)ba ck pain (chief complaint)an xiety (chief complaint)HT N (chief complaint)sl eep apnea (chief complaint) Dietary surveillance and counselingOther acute otitis externaHypertensi on, UnspecifiedGenera lized anxiety disorderSleep Apnea 3 Nicolas Johansen. [address], [place], [place], [address] , [place]. [phone] Referring Provider: Eleno Valenzuela, [address], [place], [place], [address]. tel:[phone] OFFICE/OUTPA TIENT VISIT, [facility], [address], [place], [place], [address], [place] tel:[phone] [facility] [place] lumbago (chief complaint)pr eDM (chief complaint)HL P (chief complaint)an xiety (chief complaint)fa tigue (chief complaint) Dietary surveillance and counselingSleep ApneaLumbagoMetab olic SyndromeOther and unspecified hyperlipidemia 3 Nicolas Johansen. [address], [place], [place], [address] , [place]. tel:[phone] Referring Provider: Lala Higgins [address], [place], [place], [address]. tel:[phone] PREV VISIT, EST, AGE 40-64 [facility] [place], [address], [place], [place], [address], [place] tel:[phone] [facility] [place] Physical (chief complaint) Routine Medical ExamDietary surveillance and counselingLumbago Routine Medical Exam 3 Nicolas Johansen. [address], [place], [place], [address] , [place]. tel:[phone] Referring Provider: Eleno Valenzuela, [address], [place], [place], [address]. tel:[phone] OFFICE/OUTPA TIENT VISIT, [facility], [address], [place], [place], [address], [place] tel:[phone] [facility] [place] back pain (chief complaint)ri ght side swelling (chief complaint) Dietary surveillance and counselingLumbago Enlargement of lymph nodesViral Infection, Unspecified 3 Nicolas Johansen. [address], [place], [address] , [place]. tel:[phone] Referring Provider: Lala Higgins [address], [place], [place], [address]. tel:[phone] OFFICE/OUTPA TIENT VISIT, [facility], [address], [place], [place], [address], [place] tel:[phone] [facility] [place] COPD (chief complaint)GE RD (chief complaint)De pression (chief complaint)it saw (chief complaint) Dietary surveillance and counselingLumbago Hypertension, UnspecifiedGenera lized anxiety disorderCOPD 3 Nicolas Johansen. [address], [place], [place], [address] , [place]. tel:[phone] Referring Provider: Lala Higgins [address], [place], [place], [address]. tel:[phone] OFFICE/OUTPA TIENT VISIT, [facility], [address], [place], [address], [place] tel:[phone] [facility] [place] back pain (chief complaint)an xiety (chief complaint)El bow pain (chief complaint) LumbagoGeneralize d anxiety disorderDietary surveillance and counselingPain in joint involving upper arm 3 Nicolas Johansen. [address], [place], [place], [address] , [place]. tel:[phone] Referring Provider: Lala [address], [place], [place], [address]. tel:[phone] OFFICE/OUTPA TIENT VISIT, [facility], [address], [place], [place], [address], [place] tel:[phone] [facility] [place] back pain (chief complaint)an xiety (chief complaint)di zziness (chief complaint) Dietary surveillance and counselingLumbago Generalized anxiety disorderDizziness Anal and rectal polyp 3 Nicolas Johansen. [address], [place], [place], [address] , [place]. [phone] Referring Provider: Lala [address], [place], [place], [address]. tel:[phone] OFFICE/OUTPA TIENT VISIT, [facility], [address], [place], [address], [place] tel:[phone] [facility] [place] back pain (chief complaint)HL P (chief complaint)an xiety (chief complaint) Dietary surveillance and counselingHyperte nsion, UnspecifiedLumbag oGeneralized anxiety disorderOther and unspecified hyperlipidemia 3 Nicolas Johansen. [address], [place], [place], [address] , [place]. [phone] Referring Provider: Lala Higgins [address], [place], [place], [address]. tel:[phone] OFFICE/OUTPA TIENT VISIT, [facility], [address], [place], [place], [address], [place] tel:[phone] [facility] [place] back pain (chief complaint)HL P (chief complaint)an xiety (chief complaint) Dietary surveillance and counselingLumbago Generalized anxiety disorderOther and unspecified hyperlipidemiaHyp ertension, Unspecified 2 Nicolas Johansen. [address], [place], [place], [address] , [place]. tel:[phone] Referring Provider: Eleno Valenzuela, [address], [place], [place], [address]. tel:[phone] OFFICE/OUTPA TIENT VISIT, [facility], [address], [place], [place], [address], [place] tel:[phone] [facility] [place] back pain (chief complaint)an xiety (chief complaint)fa ll (chief complaint)HL P (chief complaint)he adache (chief complaint) Dietary surveillance and counselingOther and unspecified hyperlipidemiaHea dacheLumbagoGener alized anxiety disorderInfluenza Vaccine 2 Nicolas Johansen. [address], [place], [place], [address] , [place]. tel:[phone] Referring Provider: Eleno Valenzuela [address], [place], [place], [address]. tel:[phone] OFFICE/OUTPA TIENT VISIT, [facility], [address], [place], [place], [address], [place] tel:[phone] [facility] [place] insomnia (chief complaint)ba ck pain (chief complaint)an xiety (chief complaint) Dietary surveillance and counselingHyperte nsion, UnspecifiedInsomn ia, OtherLumbagoCOPD 2 Nicolas Johansen. [address], [place], [place], [address] , [place]. tel:[phone] Referring Provider: Lala Higgins [address], [place], [place], [address]. tel:[phone] OFFICE/OUTPA TIENT VISIT, EST [facility], [address], [place], [place], [address], [place] tel:[phone] [facility] back pain (chief complaint)di zziness (chief complaint)fa tigue (chief complaint)hy pertension (chief complaint) Dietary surveillance and counselingHeadach eMajor depressive affective disorder, single episode, mild degreeFatigue / MalaiseLumbagoDiz ziness 2 Nicolas Johansen. [address] [place], [address] , [place]. tel:[phone] Family History Family Member Type Diagnosis Age [...]
--- OUTSIDE RECORDS SUMMARY | 2024-04-04 10:54 | XMS_ITS | CONTINUITY OF CARE DOCUMENT ---
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 ef 57%, 10/2017 [...] In-person encounter Office Visit Bulmaro Riggs MD [facility] - In-person encounter Office Visit Bulmaro Riggs MD [facility] - In-person encounter Office Visit Bulmaro Riggs MD [facility] - In-person encounter Office Visit Bulmaro Riggs MD [facility] CAD-05/05 CAROTID NEGHTN--echo ef 61%, AD--normal stress nuc 02/2021 - In-person encounter Office Visit Bulmaro Riggs MD [facility] Shortness of breath - In-person encounter Office Visit Bulmaro Riggs MD [facility] HTN-09/04 ECHO EF 45-50 05/05 ECHO EF 35 ,EF 09/05 60%CAD-01/02 NUC EF 40 NORMHTN-05/05 JESIKA DUP NEGHTN-09/05 ECHO EF 55DIZZINESS 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 normal ef 57%, 10/2017HTN--echo ef 61%, hronic back pain - In-person encounter Office Visit Bulmaro Riggs MD [facility] - In-person encounter Office Visit Bulmaro Riggs MD [facility] - In-person encounter Office Visit Bulmaro Riggs MD [facility] - In-person encounter Office Visit Bulmaro Riggs MD [facility] Diabetes mellitus - In-person encounter Office Visit Bulmaro Riggs MD [facility] - In-person encounter Office Visit Bulmaro Riggs MD [facility] - In-person encounter Office Visit Bulmaro Riggs MD [facility] - In-person encounter Office Visit Bulmaro Riggs MD [facility] - In-person encounter Office Visit Bulmaro Riggs MD [facility] - In-person encounter Office Visit Bulmaro Riggs MD [facility] - In-person encounter Office Visit Bulmaro Riggs MD [facility] 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 nuc normal ef 57%, 10/2017SLEEP APNEA ON CPAP - In-person encounter Office Visit Bulmaro Riggs MD [facility] - In-person encounter Office Visit Bulmaro Riggs MD [facility] - In-person encounter Office Visit Bulmaro Riggs MD [facility] - In-person encounter Office Visit Bulmaro iRggs MD [facility] - In-person encounter Office Visit Bulmaro Riggs MD [facility] - In-person encounter Office Visit Bulmaro Riggs MD [facility] - In-person encounter Office Visit Bulmaro Riggs MD [facility] CHEST PAIN-06/04 CATH DIFFUSE DISEASE LAD DISHTN-09/04 ECHO EF 45-50 05/05 ECHO EF 35 ,EF 09/05 60% - In-person encounter Office Visit Bulmaro Riggs MD [facility] VITAL SIGNS Date Observation Value Provider [...] blood pressure, cuff size large Mi deven Odell blood pressure, diastolic 60 mm[Hg] Mi deven Odell blood pressure, systolic 100 mm[Hg] Darren calderon Odell oxygen saturation, oximetry 98 % Adilene Odell respiratory rate E&M 16 /min Natalie marin Odell pulse rate 94 /min Adilene Lang d [...] respiratory rate E&M 18 /min Lorraine Félix gni pulse rate 108 /min Lorraine Radha lder [...] Ronan eph [place] pulse rate 93 /min Nrei [place] oxygen saturation, oximetry 97 % Neri [...] Normal Absolute Neutrophil count 5491 cells/mcL [employer] 0166-9315 Normal platelet count 258 THOUSAND/UL [employer] 140-400 [...] active TAKE 1 TABLET BY MOUTH DAILY [facility] Specialist diltiazem HCl (Cardizem CD) 360 mg capsule,extended release 24hr active TAKE 1 CAPSULE BY MOUTH EVERY DAY [facility] furosemide 40 mg tablet completed Take 1 tablet by mouth once a day due for follow up - Omar Vargas diltiazem HCl (Cardizem CD) 360 mg capsule,extended release 24hr completed Take 1 capsule by mouth once a day - [facility] furosemide 40 mg tablet completed TAKE 1 [...] Omar Vargas cetirizine 10 mg tablet [facility] ELLIPTA 100-62.5-25 MCG/INH INHALATION AEROSOL [...] active as needed Siena Hdez VITAMIN D3 82909 UNIT ORAL TABLET active Take once a [...] ewed - no changes required Paul Chau [place] physical exercise, frequency, days per week no [...] status Current every day smoker D zurdo [place] number of grandchildren Bulmaro Riggs MD T [...] Payer name Policy type / Coverage type [facility] alliance party ID ALISA MEDICAID (2) Medicaid [id number] ADVANCE DIRECTIVES Name Date DISCUSSED - NO DECISION MADE TREATMENT PLAN Date Name Performer [id number],S, Omar Ahmedza i [id number],B, Omar Ahmedza i [id number],S, Omar Ahmedza i [id number],S, Omar Ahmedza i [id number],S, Omar Ahmedza i [id number],S, Omar Ahmedza i [id number],S, Omar Ahmedza i [id number],S, Omar Ahmedza i [id number],S, Omar Ahmedza i [id number],S, Omar Ahmedza i [id number],S, Omar Ahmedza i [id number],S, Omar Ahmedza i [id number],S, Omar Ahmedza i [id number],B, Omar Ahmedza i [id number],S, Omar Ahmedza i [id number],S, Omar Ahmedza i [id number],S, Omar Ahmedza i [id number],S, Omar Ahmedza i [id number],S, Omar Ahmedza i [id number],S, Omar Ahmedza i [id number],S, Omar Ahmedza i [id number],S, Omar Ahmedza i [id number],S, Omar Ahmedza i [id number],W, Omar Ahmedza i [id number],S, Omar Ahmedza i [id number],S, Omar Ahmedza i [id number],S, Omar Ahmedza i [id number],S, Omar Ahmedza i [id number],W, Omar Ahmedza i [id number],S, Omar Ahmedza i [id number],W, Omar Ahmedza i Telehealth Bobby Nacht Telehealth [...] Paul Mishra [facility]: B P today: 118/80 P [...] ..... One tab. daily Orders: E KG (CPT-30819) Bulmaro Riggs MD f/u: H er updated [...] ..... One tab twice a day Bulmaro Rgigs MD 1 week follow-up: H er updated [...] daily [facility]: T oneal following medications [...] tricuspid regurgitation. (01/18/2006) Orders: C omplete Echo (CPT-07400) R enal Artery Duplex (CPT-10640) C arotid Duplex Bilateral (CPT-61273) H olter Monitor 24 Hr (CPT-09064) S leep Study (*) Bulmaro Riggs [facility]: T oneal following medications were removed from the medication list: Lasix 20 Mg Tabs (Furosemide) ..... Once daily Her updated medication list for this problem includes: Accupril 20 Mg Tabs (Quinapril hcl) ..... One tab. daily BP today: 170/98 P rior BP: 148/96 (01/08/2008) Orders: C omplete Echo (CPT-84528) R enal Artery Duplex (CPT-64215) C arotid Duplex Bilateral (CPT-93051) H olter Monitor 24 Hr (CPT-35057) S leep Study (*) Bulmaro Riggs MD [facility]. Albrecht: T oneal following [...] sat: 98 (04/21/2008) Orders: C omplete Echo (CPT-18433) R enal Artery Duplex (CPT-18733) Carotid Duplex Bilateral (CPT-65096) H olter Monitor 24 Hr (CPT-84154) S leep Study (*) Bulmaro Riggs [facility]: O rders: C omplete Echo (CPT-16918) R enal Artery Duplex (CPT-46434) C arotid Duplex Bilateral (CPT-52902) H olter Monitor 24 Hr (CPT-20894) S leep Study (*) Bulmaro Riggs MD [facility] per [facility]. Albrecht: T oneal following [...] in the LAD. (06/26/2007) Orders: E KG (CPT-76734) C omplete Echo (CPT-82650) R enal Artery Duplex (CPT-72797) C arotid Duplex Bilateral (CPT-57606) H olter Monitor 24 Hr (CPT-98665) S lee Study (*) C OMPREHENSIVE METABOLIC PANEL W/EGFR (55365) C BC (H/H, RBC, INDICES, WBC, PLT) (3989) Bulmaro Riggs MD office visit: T he [...] units Bulmaro Riggs MD completed SPECT Images Gartet Fonseca MD compl eted Stress EKG Garett Fonseca MD complet ed EKG Bulmaro Riggs MD completed SNOMED-CT: [id number] Physical Exam, Performed: Pulse Exam of Foot Bulmaro Riggs MD completed EKG Bulmaro Riggs MD completed SNOMED-CT: [id number] 176371 Current Medications Documented Bulmaro Riggs MD completed EKG Bulmaro Riggs MD completed EKG Bulmaro Riggs MD completed EKG Bulmaro Riggs MD completed EKG Bulmaro Riggs MD completed EKG Bulmaro Riggs MD completed
--- NOTE | 2024-04-04 13:22 | REHSTMBS ---
Assessment and note entered by Francia Hicks, REGULATORY MANAGER Modified Barium Swallow Evaluation Feeding Type Recommended Oral Food Consistency Regular, Level 7 Liquid Consistency Thin (0) ST Clinical Summary The pleasant and cooperative patient was seen for an outpatient modified barium swallow. She was alert & oriented, and able to follow commands. Her chief complaint is that she regurgitates solids & liquids & has to swallow repeatedly to clear the contents. 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 She denied coughing or choking associated with liquids or solids. Oral mucosa is normal; vocal quality clear. The patient was seated for a lateral view and presented with 5cc of thin liquid barium via spoon , pudding consistency barium via a spoon, cracker coated with barium pudding via spoon, and uncontrolled thin liquid barium. This was presented via a cup & straw. Oral preparatory and oral phase symptoms: within functional limits. Pharyngeal phase symptoms: laryngeal penetration occurred with essentially every trial indicative of reduced laryngeal elevation; no overt aspiration occurred; however during the straw drinking of thin liquids, deeper laryngeal penetration to the level of the vocal cords was exhibited. With verbal cues to cough and dry swallow, the penetration appeared to clear. Aspiration risk is present with straw drinking thin liquids. Esophageal stage symptoms: none. Impressions: Mild dysphagia due to reduced laryngeal elevation causing laryngeal penetration during the swallow causing an aspiration risk. Recommendation: regular diet with regular liquids but avoid straw drinking; may benefit from OP ST to improve laryngeal elevation.
== END 2024-04-04 10:31 | disposition home or self-care (01) ==
PROVIDERS: PCP Emergency Medicine; Visit Provider Nurse Practitioner Family
DX: J38.7 Other diseases of larynx (principal); K21.9 Gastro-esophageal reflux disease without esophagitis; R11.0 Nausea; R11.10 Vomiting, unspecified; R13.10 Dysphagia, unspecified
CPT/HCPCS: 92611

== ENCOUNTER 2024-05-13 13:00 | Outpatient (RCR) | payer OTHER, SELFPAY ==
--- NOTE | 2024-04-04 10:04 | OPREHPOC ---
Outpatient Therapy Plan of Care This is a Multidisciplinary Plan of Care that may contain components documented by all disciplines (PT, OT, and ST.) PT Problem 1 PT Problem #1 Knowledge Deficit PT Goal 1 Goal / Goal Update *indep with HEP Target Visit 10 PT Problem 2 PT Problem #2 Pain PT Goal 1 Goal / Goal Update * pt report pain rating at worst of 7/10, to increase activity tolerance Target Visit 10 PT Problem 3 PT Problem #3 Impaired Functional Mobility PT Goal 1 Goal / Goal Update * 2 minute walking test distance 100' with wheeled walker Target Visit 10 PT Problem 4 PT Problem #4 Impaired Strength PT Goal 1 Goal / Goal Update * pt transfer sit/stand with use of 1 UE x 5 reps Target Visit 10 PT Goal 2 Goal / Goal Update * pt stand with trunk upright/no flexion of trunk Target Visit 10 PT Problem 5 PT Problem #5 Impaired Strength PT Goal 1 Goal / Goal Update *increase LE strength, to improve mobility: pt perform 20 reps of mat exercises R and L LE Target Visit 10
--- NOTE | 2024-04-04 10:04 | PTOPEVAL1 ---
Assessment and note entered by Nida Catherine, PT Evaluation Information Assessment Status Evaluation ICD-10 Condition Codes (PT) Pain in low back M54.50,Radiculopathy, lumbar region M54.16 Onset Jan 2024 Subjective Information chronic issues with back pain, onset about 18 years old when working as [employer]; this is new pain management dr, want to try aquatic therapy. have done aquatic therapy in the past and it helped for a short time; have not had any falls in the past 6 months, but have a history of falling in the past. Activity: walking short distance from bed to bathroom, with walker or cane, use w/c going out of the home; use oxygen at 3L/min; indep with bathing and dressing, but need help from to get into bath tub- use grab bar to lower self into tub; live in a hotel; have microwave and mini fridge only; try to do some leg exercises when sitting; GOAL: be able to walk farther; Reported Pain Level Pain Score Self Report Additional Pain Score Comments pain range in the past week: 3-10/10; low back and R hip, intermittent to R ankle, constant to proximal thigh increase pain: walking; decrease pain: tylenol- sometimes helps; sleep varies--awaken 2-3x/night at worst does not have heating pad Assessment PT Clinical Summary Bev has the diagnosis of low back pain, radicular pain, chronic pain and R hip pain. Reports intermittent radicular pain to R proximal ankle and constant to proximal thigh. Self assessment Oswestry rating of 74% limitation in activity level. She lives with her in a hotel and walking only from bathroom to bed. assist pt in/out bath tub. She uses a wheelchair for out of her room. With the evaluation: maximum walking distance of 55' in 1 minute and 40 seconds with wheeled walker ; decreased strength of R and L LE, with mat exercises 6-10 reps; sit/stand requires both UE use; poor standing position with trunk flexion, side bend to L and forward rotation to L. Skilled PT services are indicated for land and aquatic treatments, to increase trunk and hip strength and mobility, increase walking ability, with modalities for pain control and education for HEP and pain control, body mechanics. Plan of Care Interventions Aquatic Therapy,Electrical Stimulation,Gait Training,Hot Pack/Cold Pack,Manual Therapy,Neuro Re-education,Patient/Caregiver Education, Therapeutic Activities,Therapeutic Exercise, Ultrasound,Other Other Interventions taping PT Services Indicated Yes Treatment Frequency and 2x/wk for 10 visits Duration These treatments will address the objective and functional deficits as defined above. The patient will be advanced safely and appropriately in order for the patient to progress towards his/her prior level of function. Additional exercises will be introduced and as well as a comprehensive home exercise program upon discharge, if needed, ?to ensure carryover of functional gains achieved in the clinic. This treatment plan has been reviewed and agreement upon by the patient.
--- NOTE | 2024-04-30 12:30 | PCPTNOTE ---
Pt canceled due to no ride.
--- NOTE | 2024-05-13 13:57 | OPREHPOC ---
Outpatient Therapy Plan of Care This is a Multidisciplinary Plan of Care that may contain components documented by all disciplines (PT, OT, and ST.) PT Problem 1 PT Problem #1 Knowledge Deficit PT Goal 1 Goal / Goal Update *indep with HEP Target Visit 10 Progress Met PT Problem 2 PT Problem #2 Pain PT Goal 1 Goal / Goal Update * pt report pain rating at worst of 7/10, to increase activity tolerance Target Visit 10 Progress Met PT Problem 3 PT Problem #3 Impaired Functional Mobility PT Goal 1 Goal / Goal Update * 2 minute walking test distance 100' with wheeled walker Target Visit 10 Progress Met PT Problem 4 PT Problem #4 Impaired Strength PT Goal 1 Goal / Goal Update * pt transfer sit/stand with use of 1 UE x 5 reps Target Visit 10 Progress Met PT Goal 2 Goal / Goal Update * pt stand with trunk upright/no flexion of trunk Target Visit 10 Progress Met PT Problem 5 PT Problem #5 Impaired Strength PT Goal 1 Goal / Goal Update *increase LE strength, to improve mobility: pt perform 20 reps of mat exercises R and L LE Target Visit 10 Progress Met
--- NOTE | 2024-05-13 13:57 | PTOPDC ---
Assessment and note entered by Gianfranco Bates, PT Evaluation Information Assessment Status Discharge ICD-10 Condition Codes (PT) Pain in low back M54.50,Radiculopathy, lumbar region M54.16 Onset Jan 2024 Subjective Information Reports that she really feel she has hit her goal with therapy. She is able to walk at home with the walker and is no longer using the wheelchair for mobility. Reported Pain Level Pain Score 3: Self Report Additional Pain Score Comments pain range in the past week: 3-10/10; low back and R hip, intermittent to R ankle, constant to proximal thigh increase pain: walking; decrease pain: tylenol- sometimes helps; sleep varies--awaken 2-3x/night at worst does not have heating pad Assessment PT Clinical Summary Patient has met all personal goals for therapy at this time. We have seen significant functional and objective improvement which has reflected in improved mobility and strength. Overall she is suitable for discharge to [facility]. She reports compliance and understanding of [facility]. Plan of Care PT Services Indicated Yes
== END 2024-05-13 15:00 | disposition home or self-care (01) ==
LOC: ANHPT 13:00
PROVIDERS: PCP Emergency Medicine; Visit Provider Anesthesiology Pain Medicine
DX: M54.50 Low back pain, unspecified (principal); M47.817 Spondylosis without myelopathy or radiculopathy, lumbosacral region; M54.17 Radiculopathy, lumbosacral region; M48.062 Spinal stenosis, lumbar region with neurogenic claudication
CPT/HCPCS: 97110; 97113; 97140; 97162; 97530

== ENCOUNTER 2024-07-09 10:28 | Outpatient (CLI) | payer OTHER, SELFPAY ==
--- OUTSIDE RECORDS SUMMARY | 2024-07-09 10:45 | XMS_ITS | Referral Summary ---
Author Organization [facility] Address [address] [place] [address] Phone Care Team Providers Care Substance Abuse Specialist Name Role Phone Jorge Luis Hill MD Primary Care Provider [phone] Encounters Date Type Department Care Team Description 06/13/2024 3:30 PM CDT Office Visit [facility] Pulmonary at [address] [place] [address] Jany Hernandez NP Chronic respiratory failure with hypoxia, on home O2 therapy (HCC) (Primary Dx); Centrilobular emphysema (HCC); Pulmonary nodules; Cigarette nicotine dependence without complication 05/22/2024 2:00 PM CDT - 05/22/2024 11:59 PM CDT Hospital Encounter [facility] Di[facility] [address] [place] [id number] Lumbar pain Discharge Disposition: Discharge to home or self care 05/22/2024 2:00 PM CDT Office Visit [facility] Orthopedics and Sports Medicine [address] [place] [address] [address] [place] [id number] Anneliese Byers NP Chronic right-sided low back pain with right-sided sciatica; Degeneration of intervertebral disc of lumbar region, multilevel, severe L5-S1 with discogenic back pain and lower extremity pain; History of compression fracture of spine, minimal T12, L1 from Last 3 Months Allergies No known active allergies Medications aspirin 81 mg enteric coated tablet Take 1 tablet (81 mg total) by mouth every morning Active cloNIDine (CATAPRES) 0.1 mg tablet Take 1 tablet (0.1 mg total) by mouth every 12 hours 02/22/20 17 Active losartan (COZAAR) 50 mg tablet Take 1 tablet (50 mg total) by mouth every morning 11/14/19 18 Active montelukast (SINGULAIR) 10 mg tablet Take 1 tablet (10 mg total) by mouth nightly 11/12/19 20 Active QUEtiapine (SEROquel) 50 mg tablet Take 1 tablet (50 mg total) by mouth nightly 01/01/20 20 Active rOPINIRole (REQUIP) 0.25 mg tablet Take 1 tablet (0.25 mg total) by mouth nightly 01/03/20 20 Active cholecalciferol (VITAMIN D-3) 54849 unit tablet Take 1 tablet (50,000 Units total) by mouth once a week 12/01/19 18 Active dicyclomine (BENTYL) 10 mg capsule Take 1 capsule (10 mg total) by mouth 4 (four) times a day Active furosemide (LASIX) 40 mg tablet 12/29/19 22 Active naloxone (NARCAN) 4 mg/actuation spray,non-aeros ol 03/18/19 22 Active diltiaZEM CD (CARDIZEM CD) 360 mg 24 hr capsule Take 1 capsule (360 mg total) by mouth daily 01/31/20 22 Active escitalopram (LEXAPRO) 20 mg tablet Take 1 tablet (20 mg total) by mouth daily 01/20/20 22 Active metoclopramide (REGLAN) 10 mg tabletIndicatio ns:nausea preventative Take 1 tablet (10 mg total) by mouth 3 (three) times a day before meals Active amitriptyline (ELAVIL) 50 mg tablet 03/23/19 23 Active omeprazole (PriLOSEC) 40 mg capsule 03/17/19 23 Active rOPINIRole (REQUIP) 0.5 mg tablet TAKE 1 TABLET BY MOUTH EVERY NIGHT AT BEDTIME WITH 1 MG TABLET *EMERGENCY REFILL* 06/23/19 24 Active gabapentin (NEURONTIN) 300 mg capsule Take 1 capsule (300 mg total) by mouth 3 (three) times a day 90 capsule 11 08/07/19 24 2024 Active albuterol HFA (PROVENTIL HFA,VENTOLIN HFA,PROAIR HFA) 90 mcg/actuation inhaler Inhale 1 puff every 4 (four) hours as needed for wheezing 1 each 10/17/19 Active tiotropium bromide (SPIRIVA RESPIMAT) 2.5 mcg/actuation inhaler Inhale 2 puffs daily 1 each 10/17/19 Active Additional Information Patient not taking.Reported on 06/13/2024 loratadine (CLARITIN) 10 mg tablet Take 1 tablet (10 mg total) by mouth daily 30 tablet 10/31/19 Active sulfamethoxazol e-trimethoprim (BACTRIM DS) 800-160 mg per tablet TAKE ONE (1) TABLET BY MOUTH TWICE DAILY 60 tablet 02/22/20 Active Symbicort 160-4.5 mcg/actuation inhaler INHALE TWO (2) PUFFS BY MOUTH TWICE DAILY. RINSE MOUTH OUT WITH WATER AFTER EACH USE. DO NOT SWALLOW 10.2 g 04/22/19 Active Farxiga 10 mg tabletIndicatio ns:Type 2 diabetes mellitus with hyperglycemia, without long-term current use of insulin (HCC) TAKE 1 TABLET BY MOUTH DAILY 30 tablet 05/14/19 Active fluticasone propionate (FLONASE) 50 mcg/actuation nasal spray 02/15/20 Active ibuprofen (ADVIL,MOTRIN) 600 mg tablet 04/30/19 25 Active Linzess 290 mcg capsule 05/22/[address] (PROTONIX) 40 mg EC tablet pantoprazole 40 mg tablet,delayed release (DR/EC) Active tiotropium bromide (SPIRIVA RESPIMAT) 2.5 mcg/actuation inhaler Inhale 2 puffs daily 1 each 06/14/19 Active montelukast (SINGULAIR) 10 mg tablet Take 1 tablet (10 mg total) by mouth nightly 30 tablet 06/14/192025 Active albuterol 2.5 mg /3 mL (0.083 %) nebulizer solution Take 3 mL (2.5 mg total) by nebulization every 6 (six) hours as needed for wheezing or shortness of breath 360 mL 06/14/19 Active metFORMIN (GLUCOPHAGE) 500 mg tabletIndicatio ns:Type 2 diabetes mellitus with hyperglycemia, without long-term current use of insulin (HCC) TAKE 1 TABLET BY MOUTH TWICE DAILY WITH MEALS *PATIENT MUST CONTACT OFFICE FOR FURTHER REFILLS* 90 tablet 07/04/19 Active metFORMIN (GLUCOPHAGE) 500 mg tabletIndicatio ns:Type 2 diabetes mellitus with hyperglycemia, without long-term current use of insulin (HCC) TAKE 1 TABLET BY MOUTH TWICE DAILY WITH MEALS 60 tablet 06/08/19 25 2024 Discontinued Active Problems Problem Noted Date Diagnosed Date Cigarette nicotine dependence without complicati on 06/14/2024 Assessment & Plan (06/14/2024 9:22 AM CDT): She continues to smoke about 4-5 cigarettes per day. - Smoking cessation counseling and techniques reviewed at length - Avoid triggers and use distraction techniques - Information given regarding [place] Tobacco Quit line: [phone] for free services - 5 minutes spent discussing cessation She qualifies for annual LDCT however I will repeat her CT chest due to a newly identified pulmonary nodule in August 2024 Pulmonary nodules 06/14/2024 Assessment & Plan (06/14/2024 9:25 AM CDT): There was a newly identified nodule on her CT chest in February. I will repeat imaging in August 2024, this order was previously placed. Chronic respiratory failure with hypoxia, on home O2 therapy 02/13/2024 Assessment & Plan (06/14/2024 9:25 AM CDT): Continue supplemental oxygen for saturations 90% I have again advised her to get a home pulse oximeter and bring it to her next visit for comparison She follows with cardiology however I do not see a recent echocardiogram, Assessment & Plan (02/13/2024 11:58 AM DIRECTOR OF INSTRUCTIONAL TECHNOLOGY): Continue supplemental oxygen for saturations 90% I have advised her to get a home pulse oximeter and bring it to her next visit for comparison She has a visit with our entrepreneurship program director upcoming and will likely have an echocardiogram. I have asked her to have this faxed over to our office for review as well Diabetic peripheral neuropat hy associated with type 2 diabetes mellitus 08/07/2023 Assessment & Plan (08/07/2023 4:05 PM [...] (01/03/2022): Added automatically from request for surgery [id number] Smoking 12/14/2021 Assessment & Plan (12/19/2021 11:55 [...] & Plan (01/14/2022 11:03 AM DIRECTOR OF INSTRUCTIONAL TECHNOLOGY): - Pt has completed 4 weeks of [...] tract. If no surgical plan, Resume diet. Resident Hall Director re supplements. Pain control with prn tylenol [...] (chronic obstructive pulmonary disease) Assessment & Plan (06/14/2024 9:23 AM CDT): Continue Symbicort twice daily with aerochamber Continue Spiriva twice daily at the same time I have sent a new RX for Spiriva and instructed her to call me if this is not available at the pharmacy Albuterol 2 puffs every 4 hours as needed only, she was aware of indications for use Alpha-1 was normal MM I believe she would benefit from pulmonary rehab however she has significant back pain limiting her activity at this time. She is aware of signs and symptoms that would require earlier evaluation or change to her plan of care Assessment & Plan (02/13/2024 11:59 AM DIRECTOR OF INSTRUCTIONAL TECHNOLOGY): Continue Symbicort twice daily Continue Spiriva twice [...] & Plan (02/13/2024 11:57 AM DIRECTOR OF INSTRUCTIONAL TECHNOLOGY): Continue PAP with all sleep She is aware of the risks of uncorrected sleep apnea Assessment & Plan (12/21/2021 12:03 PM CDT): Exacerbated by BMI 42. Alert, oriented. Outpatient PSG Assessment & Plan (12/13/2021 11:24 AM CDT): Exacerbated by BMI 42. Alert, oriented. Morbid obesity with BMI of 40.0-44.9, adult 11/27 Assessment & Plan (12/14/2021 3:10 PM CDT): BMI 42.07, 104.3kg this admit. Resident Hall Director to see detention weight loss management goals with PCP, hx DM, HTN, ELIOT & may benefit from bariatric evaluation. Assessment & Plan (12/13/2021 10:25 AM CDT): BMI 42.07, 104.3kg this admit. Resident Hall Director to see intermediate frame tender weight loss management goals with PCP, hx DM, HTN, ELIOT & may benefit from bariatric evaluation. Pancreatic cyst 01/10/2020 Overview (01/10/2020): Added automatically from request for surgery [id number] Resolved Problems Problem Noted Date Diagnosed Date Resolved Date Nicotine dependence, cigarettes, in remission 02/13/20 24 06/14/2024 Assessment & Plan (02/13/2024 11:57 AM DIRECTOR OF INSTRUCTIONAL TECHNOLOGY): Quit in November of 2023 She is due for annual CT chest in February of 2023 Immunizations Immunization Administration Dates Next Due Influenza, Quadrivalent, Spl it, Preservative Free, Intramuscular 12/28/2022 Pfizer Sars-Cov-2 Bivalent Vaccination (12+ YRS) 03/02/2022 Social History Tobacco Use Types Packs/Day Years Used Date Smoking Tobacco: Every Day Cigarettes 1 48.7 Started: 02/27/1975; Last attempted to quit: 11/2023 Cigars Smokeless Tobacco: Never Tobacco Cessation:Ready to Q uit: Not Asked; Counseling Given: Not Answered Comments:Formerly smoked 1.5 - 2 ppd 07/2023 started smoking again, smoking about 4-5 cigs per day. TC Alcohol Use Standard Drinks/Week Comments Never 0 [...] often do you attend chur ch or mandaeism services? Never 12/22/2021 Do you belong to any clubs o r organizations such as druze groups, unions, fraternal or athletic groups, or school groups? No 12/22/2021 How often do you attend meet ings of the clubs or organizations you belong to? Never 12/22/2021 Are you , , di vorced, , never , or living with a partner? 12/22/2021 AUDIT-C Answer Date Recorded Q1: How often do you have a drink containing alc ohol? Never 05/22/2024 Average Number of Drinks Not on file 025 Q3: How often do you have si x or more drinks on one occasion? Never 05/22/2024 Overall Financial Resource Strain (CARDIA) Answe r [...] in a halfway (including now)? No 12/22/2021 Personal Safety Answer Date Recorded Getting School Help Needed Denies 02/11 Comments No Sex and Gender Information Value Date Recorded Sex Assigned at Not on file Legal Sex Female 1:34 AM DIRECTOR OF INSTRUCTIONAL TECHNOLOGY Gender Identity Not on file Sexual Orientation Not on file Last Filed Vital Signs Vital Sign Reading Time Taken Comments Blood Pressure 104/58 06/13/2024 3:22 PM CDT Pulse 84 06/13/2024 3:22 PM CDT Temperature 36.9 C (98.4 F) 06/13/2024 3:22 PM CDT Respiratory Rate 18 02/12/2024 2:42 PM DIRECTOR OF INSTRUCTIONAL TECHNOLOGY Oxygen Saturation 96% 06/13/2024 3:2 2 PM CDT 2 liters of oxygen Inhaled Oxygen Concentration - - Weight 86 kg (189 lb 9.6 oz) 06/13/2024 3:22 PM CDT Height 162.6 cm (5' 4 ) 06/13/2024 3:22 PM CDT Body Mass Index 32.54 06/13/2024 3:22 PM CDT Plan of Treatment Not on file Medical Devices Implanted Type Area Catalyst Impregnator Device Identifier Shelf Expiration Date Model / Serial / Lot Shunt Implanted:Qty: 2 Shunt Brain [employer] [place] Microvascular 3.5mm Ring Pin Protective Cover Jaw Assembly Latex Free [id number] - [id number] Implanted:Qty: 1 on 2022 by Ricci Shelton MD at [facility] Mandible GetY[employer] Staff Ranker [employer] [id number] 04/12/2026 [id number] / / [id number] Álvaro Craniomaxillofaci al 2mm Primary Reconstruction Customize Mandible Bebeto Plate Bone [id number] - [id number] Implanted:Qty: 1 on 2022 by Ricci Shelton MD at [facility] Mandible Álvaro Craniomaxillofacial [id number] / / Álvaro Craniomaxillofaci al Leibinger Nye 2 2.3mm 6mm Lock Cross Pin Maxillofacial [id number] - [id number] Implanted:Qty: 1 on 2022 by Ricci Shelton MD at [facility] Mandible Álvaro Craniomaxillofacial [id number] / / [place] Craniomaxillofaci al Leibinger Nye 2 2.3mm 8mm Lock Cross Pin Maxillofacial [id number] - [id number] Implanted:Qty: 2 on 2022 by Ricci Shelton MD at [facility] Mandible [place] Craniomaxillofacial [id number] / / [place] Craniomaxillofaci al Leibinger Nye 2 2.3mm 12mm Lock Cross Pin Maxillofacial [id number] - [id number] Implanted:Qty: 3 on 2022 by Ricci Shelton MD at [facility] Mandible Álvaro Craniomaxillofacial [id number] / / Álvaro Craniomaxillofaci al Leibinger Nye 2 2mm 6mm Self Tap Cross Pin Maxillofacial 50 - [id number] Implanted:Qty: 4 on 2022 by Ricci Shelton MD at [facility] Mandible Álvaro Craniomaxillofacial 50 / / Álvaro Craniomaxillofaci al Leibinger Nye 2 2mm 6mm Lock Cross Pin Maxillofacial Screw 50 - [id number] Implanted:Qty: 1 on 2022 by Ricci Shelton MD at [facility] Mandible [place] Craniomaxillofacial 50 / / Explanted Type Area Catalyst Impregnator Device Identifier Shelf Expiration Date Model / Serial / Lot Álvaro Craniomaxillofaci al Leibinger Nye 2 2mm 8mm Self Tap Cross Pin Maxillofacial 50 - [id number] Explanted:Qty: 4 on 2022 at [facility] Mandible [place] Craniomaxillofacial 50 / / [place] Craniomaxillofaci al Leibinger Nye 2 2.3mm 8mm Self Tap Cross Pin Maxillofacial [id number] - [id number] Explanted:Qty: 1 on 2022 at [facility] Mandible Álvaro Craniomaxillofacial [id number] / / [employer] Probe Doppler 17.4cm Standard Cuff Implantable 20mhz Latex Free Sterile Microvascular Anastomoses Carmen [id number] - [id number] Implanted:Qty: 1 on 2022 by Ricci Shelton MD at [facility] Explanted:Qty: 1 on 02/14/2022 by Marie Parr PA Right: Neck [employer] [id number] 10/27/2024 [id number] / / [id number] Procedures Procedure Name Priority Date/Time Associated Diagnosis Comments XR SPINE LUMBAR 2 OR 3 VIEWS Schedule Routine, Read Routine (OP Routine) 05/22/2024 2:[address] CD[address] Lumbar pain CT LUNG CANCER SCREENING Schedule Routine, Read Routine (OP Routine) 03/25/2024 12:46 PM DIRECTOR OF INSTRUCTIONAL TECHNOLOGY Nicotine dependence, cigarettes, uncomplicated POCT HEMOGLOBIN A1C Routine 08/07/2023 3:17 PM CDT Type 2 diabetes mellitus with hyperglycemia, without long-term current use of insulin (HCC) EGFR Routine 08/03/2023 1:59 PM CDT Osteoporosis, unspecified osteoporosis type, unspecified pathological fracture presence LIPID PANEL STAT 02/15/2022 2:00 PM DIRECTOR OF INSTRUCTIONAL TECHNOLOGY HEPATITIS PANEL, ACUTE Routine 12/15/2021 11:19 PM CDT from Last 3 Months or Most Recently Relevant to Health Maintenance Results * XR Spine Lumbar 2 or 3 Views (05/22/2024 2:05 PM CDT) Anatomical Region Laterality Modality Spine N/A Computed Radiogr aphy 05/30/2024 9:2 4 AM CDT Narrative 05/30/2024 9:26 AM CDT EXAM DESCRIPTION: XR SPINE LUMBAR 2 OR 3 VIEWS REASON FOR STUDY: pain Increased pain in low back and right hip for 1 year, no injury FINDINGS: Flexion and extension views of the lumbar spine are submitted for interpretation and compared to prior 08/03/2023 radiographs. Multilevel lumbar spine degenerative disc disease is greatest and severe at L5-S1. Normal motion with flexion and extension. 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 There are atherosclerotic vascular calcifications. Minimal wedge deformities of T12 and L1 are unchanged. IMPRESSION: Multilevel lumbar spine degenerative disc disease greatest and severe at L5-S1. Normal motion of the lumbar spine with flexion and extension. Chronic minimal wedge deformities of T12 and L1 THIS IS AN ELECTRONICALLY VERIFIED FINAL REPORT 05/30/2024 9:26 AM - Electronically signed by You Hills M.D. T: Report ID: [id number] Reading Location: [id number] Procedure Note You Hills MD - 05/30/2024 EXAM DESCRIPTION: XR SPINE LUMBAR 2 OR 3 VIEWS REASON FOR STUDY: pain Increased pain in low back and right hip for 1 year, no injury FINDINGS: Flexion and extension views of the lumbar spine are submittedfor interpretation and compared to prior 08/03/2023 radiographs. Multilevel lumbar spine degenerative disc disease is greatest and severe at L5-S1. Normal motion with flexion and extension. Facet osteoarthritis is presentat multiple levels. There are atherosclerotic vascular calcifications.Minimal wedge deformities of T12 and L1 are unchanged. IMPRESSION: Multilevel lumbar spine degenerative disc disease greatest and severe at L5-S1. Normal motion of the lumbar spine with flexion and extension. Chronic minimal wedge deformities of T12 and L1 THIS IS AN ELECTRONICALLY VERIFIED FINAL REPORT 05/30/2024 9:26 AM - Electronically signed by You Hills M.D. T: Report ID: [id number] Reading Location: [id number] Anneliese Byers NP IMG XR PROCEDURES Final Res ult * CT Lung Cancer Screening (03/25/2024 12:46 PM DIRECTOR OF INSTRUCTIONAL TECHNOLOGY) Anatomical Region Laterality Modality Chest N/A Computed Tomogra phy 03/26/2024 9:54 AM DIRECTOR OF INSTRUCTIONAL TECHNOLOGY Narrative 03/26/2024 10:03 AM DIRECTOR OF INSTRUCTIONAL TECHNOLOGY EXAM DESCRIPTION: CT LUNG CANCER SCREENING REASON [...] Almita Miller D.O. PS: PS Report ID: [id number] Reading Location: [place] [id number] Procedure Note Almita Miller, DO - 03/26/2024 [...] Almita Miller D.O. PS: PS Report ID: [id number] Reading Location: [id number] Ethan Leung MD [facility] CT PROCEDURES Final Result * (ABNORMAL) POCT hemoglobin A1c (08/07/2023 3:17 PM CDT) Hemoglobin A1C, POC 5.9 % Capillary blood 08/07/2023 3 :17 PM CDT us Briana Santana MD POINT OF CARE TEST [...] MD LAB BLOOD ORDERABLES Final Resu lt [facility] Department [place] [address] * (ABNORMAL) Lipid panel (02/15/2022 2:00 PM DIRECTOR OF INSTRUCTIONAL TECHNOLOGY) Cholesterol 161 30 - 199 mg/dL ABDELRAHMAN [...] on 2017. Triglycerides 253(H) <=149 mg/dL ABDELRAHMAN ALLEN Comment: Interpretive Data Ages < or = 9 years Acceptable: <75 mg/dL Borderline high: 75-99 mg/dL High: [id number]|2024-07-09 10:45:00|2024-07-09 10:45:00|XMS_ITS|SILVA KIM|External Medical Summaries|[id number]|" Clinical Summary Created on: July 09, 2024 Bev Grossman : 1965 Sex: Female Author Organization [facility] Address [address] [place] [address] Phone Care Team Providers Care Substance Abuse Specialist Name Role Phone Jorge Luis Hill MD Primary Care Provider [phone] Allergies No known active allergies Medications aspirin 81 mg enteric coated tablet Take 1 tablet (81 mg total) by mouth every morning Active cloNIDine (CATAPRES) 0.1 mg tablet Take 1 tablet (0.1 mg total) by mouth every 12 hours 02/22/20 17 Active losartan (COZAAR) 50 mg tablet Take 1 tablet (50 mg total) by mouth every morning 11/14/19 18 Active montelukast (SINGULAIR) 10 mg tablet Take 1 tablet (10 mg total) by mouth nightly 11/12/19 20 Active QUEtiapine (SEROquel) 50 mg tablet Take 1 tablet (50 mg total) by mouth nightly 01/01/20 20 Active rOPINIRole (REQUIP) 0.25 mg tablet Take 1 tablet (0.25 mg total) by mouth nightly 01/03/20 Active cholecalciferol (VITAMIN D-3) 01164 unit tablet Take 1 tablet (50,000 Units total) by mouth once a week 12/01/19 18 Active dicyclomine (BENTYL) 10 mg capsule Take 1 capsule (10 mg total) by mouth 4 (four) times a day Active furosemide (LASIX) 40 mg tablet 12/29/19 22 Active naloxone (NARCAN) 4 mg/actuation spray,non-aeros ol 03/18/19 22 Active diltiaZEM CD (CARDIZEM CD) 360 mg 24 hr capsule Take 1 capsule (360 mg total) by mouth daily 01/31/20 22 Active escitalopram (LEXAPRO) 20 mg tablet Take 1 tablet (20 mg total) by mouth daily 01/20/20 22 Active metoclopramide (REGLAN) 10 mg tabletIndicatio ns:nausea preventative Take 1 tablet (10 mg total) by mouth 3 (three) times a day before meals Active amitriptyline (ELAVIL) 50 mg tablet 03/23/19 23 Active omeprazole (PriLOSEC) 40 mg capsule 03/17/19 23 Active rOPINIRole (REQUIP) 0.5 mg tablet TAKE 1 TABLET BY MOUTH EVERY NIGHT AT BEDTIME WITH 1 MG TABLET *EMERGENCY REFILL* 06/23/19 24 Active gabapentin (NEURONTIN) 300 mg capsule Take 1 capsule (300 mg total) by mouth 3 (three) times a day 90 capsule 11 08/07/19 24 2024 Active albuterol HFA (PROVENTIL HFA,VENTOLIN HFA,PROAIR HFA) 90 mcg/actuation inhaler Inhale 1 puff every 4 (four) hours as needed for wheezing 1 each 10/17/19 Active tiotropium bromide (SPIRIVA RESPIMAT) 2.5 mcg/actuation inhaler Inhale 2 puffs daily 1 each 10/17/19 Active Additional Information Patient not taking.Reported on 06/13/2024 loratadine (CLARITIN) 10 mg tablet Take 1 tablet (10 mg total) by mouth daily 30 tablet 11 10/31/19 24 Active sulfamethoxazol e-trimethoprim (BACTRIM DS) 800-160 mg per tablet TAKE ONE (1) TABLET BY MOUTH TWICE DAILY 60 tablet 02/22/20 Active Symbicort 160-4.5 mcg/actuation inhaler INHALE TWO (2) PUFFS BY MOUTH TWICE DAILY. RINSE MOUTH OUT WITH WATER AFTER EACH USE. DO NOT SWALLOW 10.2 g 04/22/19 Active Farxiga 10 mg tabletIndicatio ns:Type 2 diabetes mellitus with hyperglycemia, without long-term current use of insulin (HCC) TAKE 1 TABLET BY MOUTH DAILY 30 tablet 05/14/19 Active fluticasone propionate (FLONASE) 50 mcg/actuation nasal spray 02/15/20 Active ibuprofen (ADVIL,MOTRIN) 600 mg tablet 04/30/19 Active Linzess 290 mcg capsule 05/22/[address] (PROTONIX) 40 mg EC tablet pantoprazole 40 mg tablet,delayed release (DR/EC) Active tiotropium bromide (SPIRIVA RESPIMAT) 2.5 mcg/actuation inhaler Inhale 2 puffs daily 1 each 06/14/19 Active montelukast (SINGULAIR) 10 mg tablet Take 1 tablet (10 mg total) by mouth nightly 30 tablet 06/14/192025 Active albuterol 2.5 mg /3 mL (0.083 %) nebulizer solution Take 3 mL (2.5 mg total) by nebulization every 6 (six) hours as needed for wheezing or shortness of breath 360 mL 06/14/19 Active metFORMIN (GLUCOPHAGE) 500 mg tabletIndicatio ns:Type 2 diabetes mellitus with hyperglycemia, without long-term current use of insulin (HCC) TAKE 1 TABLET BY MOUTH TWICE DAILY WITH MEALS *PATIENT MUST CONTACT OFFICE FOR FURTHER REFILLS* 90 tablet 07/04/19 25 Active metFORMIN (GLUCOPHAGE) 500 mg tabletIndicatio ns:Type 2 diabetes mellitus with hyperglycemia, without long-term current use of insulin (HCC) TAKE 1 TABLET BY MOUTH TWICE DAILY WITH MEALS 60 tablet 06/08/19 25 2024 Discontinued Active Problems Problem Noted Date Diagnosed Date Cigarette nicotine dependence without complicati on 06/14/2024 Assessment & Plan (06/14/2024 9:22 AM CDT): She continues to smoke about 4-5 cigarettes per day. - Smoking cessation counseling and techniques reviewed at length - Avoid triggers and use distraction techniques - Information given regarding [place] Tobacco Quit line: [phone] for free services - 5 minutes spent discussing cessation She qualifies for annual LDCT however I will repeat her CT chest due to a newly identified pulmonary nodule in August 2024 Pulmonary nodules 06/14/2024 Assessment & Plan (06/14/2024 9:25 AM CDT): There was a newly identified nodule on her CT chest in February. I will repeat imaging in August 2024, this order was previously placed. Chronic respiratory failure with hypoxia, on home O2 therapy 02/13/2024 Assessment & Plan (06/14/2024 9:25 AM CDT): Continue supplemental oxygen for saturations 90% I have again advised her to get a home pulse oximeter and bring it to her next visit for comparison She follows with cardiology however I do not see a recent echocardiogram, Assessment & Plan (02/13/2024 11:58 AM DIRECTOR OF INSTRUCTIONAL TECHNOLOGY): Continue supplemental oxygen for saturations 90% I have advised her to get a home pulse oximeter and bring it to her next visit for comparison She has a visit with our entrepreneurship program director upcoming and will likely have an echocardiogram. I have asked her to have this faxed over to our office for review as well Diabetic peripheral neuropat hy associated with type 2 diabetes mellitus 08/07/2023 Assessment & Plan (08/07/2023 4:05 PM [...] (01/03/2022): Added automatically from request for surgery [id number] Smoking 12/14/2021 Assessment & Plan (12/19/2021 11:55 [...] & Plan (01/14/2022 11:03 AM DIRECTOR OF INSTRUCTIONAL TECHNOLOGY): - Pt has completed 4 weeks of [...] Broad spectrum IV abx, started IV Unasyn (), monitor s/s infection & renal function. Plastics & OFMS consulted in ED, no notes yet. Will d/w plastics, anticipate pursuing ENT to evaluate management of osteonecrosis & sinus tract. If no surgical plan, Resume diet. Resident Hall Director re supplements. Pain control with prn tylenol [...] (chronic obstructive pulmonary disease) Assessment & Plan (06/14/2024 9:23 AM CDT): Continue Symbicort twice daily with aerochamber Continue Spiriva twice daily at the same time I have sent a new RX for Spiriva and instructed her to call me if this is not available at the pharmacy Albuterol 2 puffs every 4 hours as needed only, she was aware of indications for use Alpha-1 was normal MM I believe she would benefit from pulmonary rehab however she has significant back pain limiting her activity at this time. She is aware of signs and symptoms that would require earlier evaluation or change to her plan of care Assessment & Plan (02/13/2024 11:59 AM DIRECTOR OF INSTRUCTIONAL TECHNOLOGY): Continue Symbicort twice daily Continue Spiriva twice [...] & Plan (02/13/2024 11:57 AM DIRECTOR OF INSTRUCTIONAL TECHNOLOGY): Continue PAP with all sleep She is aware of the risks of uncorrected sleep apnea Assessment & Plan (12/21/2021 12:03 PM CDT): Exacerbated by BMI 42. Alert, oriented. Outpatient PSG Assessment & Plan (12/13/2021 11:24 AM CDT): Exacerbated by BMI 42. Alert, oriented. Morbid obesity with BMI of 40.0-44.9, adult 11/27 Assessment & Plan (12/14/2021 3:10 PM CDT): BMI 42.07, 104.3kg this admit. Resident Hall Director to see intermediate frame tender weight loss management goals with PCP, hx DM, HTN, ELIOT & may benefit from bariatric evaluation. Assessment & Plan (12/13/2021 10:25 AM CDT): BMI 42.07, 104.3kg this admit. Resident Hall Director to see detention weight loss management goals with PCP, hx DM, HTN, ELIOT & may benefit from bariatric evaluation. Pancreatic cyst 01/10/2020 Overview (01/10/2020): Added automatically from request for surgery [id number] Resolved Problems Problem Noted Date Diagnosed Date Resolved Date Nicotine dependence, cigarettes, in remission 02/13/20 24 06/14/2024 Assessment & Plan (02/13/2024 11:57 AM DIRECTOR OF INSTRUCTIONAL TECHNOLOGY): Quit in November of 2023 She is due for annual CT chest in February of 2023 Encounters Date Type Department Care Team Description 06/13/2024 3:30 PM CDT Office Visit [facility] Pulmonary at [address] [place] [address] Jany Hernandez NP Chronic respiratory failure with hypoxia, on home O2 therapy (HCC) (Primary Dx); Centrilobular emphysema (HCC); Pulmonary nodules; Cigarette nicotine dependence without complication 05/22/2024 2:00 PM CDT - 05/22/2024 11:59 PM CDT Hospital Encounter [facility] [address] [place] [address] Lumbar pain Discharge Disposition: Discharge to home or self care 05/22/2024 2:00 PM CDT Office Visit [facility] Orthopedics and Sports Medicine [address] [place] [address] [address] [place] [id number] Anneliese Byers NP Chronic right-sided low back pain with right-sided sciatica; Degeneration of intervertebral disc of lumbar region, multilevel, severe L5-S1 with discogenic back pain and lower extremity pain; History of compression fracture of spine, minimal T12, L1 from Last 3 Months Immunizations Immunization Administration Dates Next Due Influenza, Quadrivalent, Spl it, Preservative Free, Intramuscular 12/28/2022 Pfizer Sars-Cov-2 Bivalent Vaccination (12+ YRS) 03/02/2022 Surgical History Surgery Date Site/Laterality Comments SECTION 1984, 1988 TOTAL ABDOMINAL HYSTERECTOMY W/ BILATERAL SALPINGOOPHORECTOMY 02/27/1995 - 02/27/1996 MILITARY EXCHANGE WIRELESS MANAGER SHUNT INSERTION 02/27/2010 - 02/26/2011 COLONOSCOPY BRAIN SURGERY Medical History Medical History Date Comments GERD (gastroesophageal reflux disease) Hypertension Hyperlipidemia Type 2 diabetes mellitus (HCC) Sleep apnea Dysphagia Asthma COPD (chronic obstructive pulmonary disease) (HC C) Stroke (HCC) Anemia Anxiety Arthritis Osteoporosis Depression Migraines Heart disease Dizziness Cigarette nicotine dependence without complicati on 06/14/2024 Pulmonary nodules 06/14/2024 Family History Medical History Relation Name Comments Diabetes type II Father Elsa Hines Heart disease Father Elsa Hines Hypertension Father Elsa Hines Stroke Father Elsa Hines Hypertension Maternal Grandmother Sreekanth nascimento Osteoporosis Maternal Grandmother Sreekanth nascimento Heart disease Mother Hypertension Mother Stroke Mother Stroke Mother's Sister Faviola hebert Diabetes type II Son diabetes ii Son Broken bones Neg Hx Hip fracture Neg Hx Kyphosis Neg Hx Scoliosis Neg Hx Relation Name Status Comments Father Elsa Hines Alive Maternal Grandmother Sreekanth nascimento Alive Mother Mother's Sister Faviola hebert Son Alive Social History Tobacco Use Types Packs/Day Years Used Date Smoking Tobacco: Every Day Cigarettes 1 48.7 Started: 02/27/1975; Last attempted to quit: 11/2023 Cigars Smokeless Tobacco: Never Tobacco Cessation:Ready to Q uit: Not Asked; Counseling Given: Not Answered Comments:Formerly smoked 1.5 - 2 ppd 07/2023 started smoking again, smoking about 4-5 cigs per day. TC Alcohol Use Standard Drinks/Week Comments Never 0 [...] often do you attend chur ch or mandaeism services? Never 12/22/2021 Do you belong to any clubs o r organizations such as druze groups, unions, fraternal or athletic groups, or school groups? No 12/22/2021 How often do you attend meet ings of the clubs or organizations you belong to? Never 12/22/2021 Are you , , di vorced, , never , or living with a partner? 12/22/2021 AUDIT-C Answer Date Recorded Q1: How often do you have a drink containing alc ohol? Never 05/22/2024 Average Number of Drinks Not on file 025 Q3: How often do you have si x or more drinks on one occasion? Never 05/22/2024 Overall Financial Resource Strain (CARDIA) Answe r [...] in a halfway (including now)? No 12/22/2021 Personal Safety Answer Date Recorded Getting School Help Needed Denies 02/11 Comments No Sex and Gender Information Value Date Recorded Sex Assigned at Not on file Legal Sex Female 1:34 AM DIRECTOR OF INSTRUCTIONAL TECHNOLOGY Gender Identity Not on file Sexual Orientation Not on file Obstetrics History Last Filed Vital Signs Vital Sign Reading Time Taken Comments Blood Pressure 104/58 06/13/2024 3:22 PM CDT Pulse 84 06/13/2024 3:22 PM CDT Temperature 36.9 C (98.4 F) 06/13/2024 3:22 PM CDT Respiratory Rate 18 02/12/2024 2:42 PM DIRECTOR OF INSTRUCTIONAL TECHNOLOGY Oxygen Saturation 96% 06/13/2024 3:2 2 PM CDT 2 liters of oxygen Inhaled Oxygen Concentration - - Weight 86 kg (189 lb 9.6 oz) 06/13/2024 3:22 PM CDT Height 162.6 cm (5' 4 ) 06/13/2024 3:22 PM CDT Body Mass Index 32.54 06/13/2024 3:22 PM CDT Plan of Treatment Health Maintenance Due Date Last Done Comments Albumin Creatinine Ratio, Urine 1965 Breast Cancer Screening-Mammogram 1965 Colon Cancer Screening-Colonoscopy 1965 Dilated Eye Exam 1965 Foot Exam 1965 Hepatitis B Screening 1983 Regular Well Visit/Exam 18-64 1983 Pneumococcal vaccine <65 (1 of 2 - PCV) 02/04/1984 Zoster Vaccine (1 of 2) 2015 Depression Screening 12/12/2022 12/12/2021 Lipid Panel 02/15/2023 02/15/2022, 2022 Covid-19 Vaccine (5 - 2023-2 5 season) 2023 03/02/2022, 10/11/2021, 08/26/2020, Additional history exists Hemoglobin A1C 02/06/2024 08/07/2023, 03/31, 12/13/2021, Additional history exists eGFR 08/02/2024 08/03/2023, 06/28, 12/28/2022, Additional history exists Lung Cancer Screening 09/21/2024 03/25/2024 Influenza Vaccine (Season Ended) 2024 12/28/2022, 01/10/2022, 03/05/2021 DTaP/Tdap/Td Vaccine (2 - Td or Tdap) 12/16/2029 12/17/2019 Hepatitis C Screening Completed 12/15/2021 Medical Devices Implanted Type Area Catalyst Impregnator Device Identifier Shelf Expiration Date Model / Serial / Lot Shunt Implanted:Qty: 2 Shunt Brain GetYous Stratoslewis [place] Microvascular 3.5mm Ring Pin Protective Cover Jaw Assembly Latex Free [id number] - [id number] Implanted:Qty: 1 on 2022 by Ricci Shelton MD at [facility] Mandible GetYous Staff Ranker Norrislewis [id number] 04/12/2026 [id number] / / [id number] Álvaro Craniomaxillofaci al 2mm Primary Reconstruction Customize Mandible Bebeto Plate Bone [id number] - [id number] Implanted:Qty: 1 on 2022 by Ricci Shelton MD at [facility] Mandible Álvaro Craniomaxillofacial [id number] / / Álvaro Craniomaxillofaci al Leibinger Nye 2 2.3mm 6mm Lock Cross Pin Maxillofacial [id number] - [id number] Implanted:Qty: 1 on 2022 by Ricci Shelton MD at [facility] Mandible Álvaro Craniomaxillofacial [id number] / / Álvaro Craniomaxillofaci al Leibinger Nye 2 2.3mm 8mm Lock Cross Pin Maxillofacial [id number] - [id number] Implanted:Qty: 2 on 2022 by Ricci Shelton MD at [facility] Mandible Álvaro Craniomaxillofacial [id number] / / Álvaro Craniomaxillofaci al Leibinger Nye 2 2.3mm 12mm Lock Cross Pin Maxillofacial [id number] - [id number] Implanted:Qty: 3 on 2022 by Ricci Shelton MD at [facility] Mandible Álvaro Craniomaxillofacial [id number] / / [place] Craniomaxillofaci al Leibinger Nye 2 2mm 6mm Self Tap Cross Pin Maxillofacial [id number] - [id number] Implanted:Qty: 4 on 2022 by Ricci Shelton MD at [facility] Mandible [place] Craniomaxillofacial 50 / / Álvaro Craniomaxillofaci al Edebinger Nye 2 2mm 6mm Lock Cross Pin Maxillofacial Screw 50 - [id number] Implanted:Qty: 1 on 2022 by Ricci Shelton MD at [facility] Mandible Álvaro Craniomaxillofacial 50 / / Explanted Type Area Catalyst Impregnator Device Identifier Shelf Expiration Date Model / Serial / Lot [place] Craniomaxillofaci al Leibinger Nye 2 2mm 8mm Self Tap Cross Pin Maxillofacial 50 - [id number] Explanted:Qty: 4 on 2022 at [facility] Mandible Álvaro Craniomaxillofacial 50 / / Álvaro Craniomaxillofaci al Leibinger Nye 2 2.3mm 8mm Self Tap Cross Pin Maxillofacial [id number] - [id number] Explanted:Qty: 1 on 2022 at [facility] Mandible Álvaro Craniomaxillofacial [id number] / / [employer] Probe Doppler 17.4cm Standard Cuff Implantable 20mhz Latex Free Sterile Microvascular Anastomoses [place] [id number] - [id number] Implanted:Qty: 1 on 2022 by Ricci Shelton MD at [facility] Explanted:Qty: 1 on 02/14/2022 by Marie Parr PA Right: Neck [employer] [id number] 10/27/2024 [id number] / / [id number] Procedures Procedure Name Priority Date/Time Associated Diagnosis Comments XR SPINE LUMBAR 2 OR 3 VIEWS Schedule Routine, Read Routine (OP Routine) 05/22/2024 2:[address] Lumbar pain CT LUNG CANCER SCREENING Schedule Routine, Read Routine (OP Routine) 03/25/2024 12:46 PM DIRECTOR OF INSTRUCTIONAL TECHNOLOGY Nicotine dependence, cigarettes, uncomplicated POCT HEMOGLOBIN A1C Routine 08/07/2023 3:17 PM CDT Type 2 diabetes mellitus with hyperglycemia, without long-term current use of insulin (HCC) EGFR Routine 08/03/2023 1:59 PM CDT Osteoporosis, unspecified osteoporosis type, unspecified pathological fracture presence LIPID PANEL STAT 02/15/2022 2:00 PM DIRECTOR OF INSTRUCTIONAL TECHNOLOGY HEPATITIS PANEL, ACUTE Routine 12/15/2021 11:19 PM CDT from Last 3 Months or Most Recently Relevant to Health Maintenance Results * XR Spine Lumbar 2 or 3 Views (05/22/2024 2:05 PM CDT) Anatomical Region Laterality Modality Spine N/A Computed Radiogr aphy 05/30/2024 9:24 AM CDT Narrative 05/30/2024 9:26 AM CDT EXAM DESCRIPTION: XR SPINE LUMBAR 2 OR 3 VIEWS REASON FOR STUDY: pain Increased pain in low back and right hip for 1 year, no injury FINDINGS: Flexion and extension views of the lumbar spine are submitted for interpretation and compared to prior 08/03/2023 radiographs. Multilevel lumbar spine degenerative disc disease is greatest and severe at L5-S1. Normal motion with flexion and extension. 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 There are atherosclerotic vascular calcifications. Minimal wedge deformities of T12 and L1 are unchanged. IMPRESSION: Multilevel lumbar spine degenerative disc disease greatest and severe at L5-S1. Normal motion of the lumbar spine with flexion and extension. Chronic minimal wedge deformities of T12 and L1 THIS IS AN ELECTRONICALLY VERIFIED FINAL REPORT 05/30/2024 9:26 AM - Electronically signed by You Hills M.D. T: Report ID: [id number] Reading Location: [id number] Procedure Note You Hills MD - 05/30/2024 EXAM DESCRIPTION: XR SPINE LUMBAR 2 OR 3 VIEWS REASON FOR STUDY: pain Increased pain in low back and right hip for 1 year, no injury FINDINGS: Flexion and extension views of the lumbar spine are submittedfor interpretation and compared to prior 08/03/2023 radiographs. Multilevel lumbar spine degenerative disc disease is greatest and severe at L5-S1. Normal motion with flexion and extension. Facet osteoarthritis is presentat multiple levels. There are atherosclerotic vascular calcifications.Minimal wedge deformities of T12 and L1 are unchanged. IMPRESSION: Multilevel lumbar spine degenerative disc disease greatest and severe at L5-S1. Normal motion of the lumbar spine with flexion and extension. Chronic minimal wedge deformities of T12 and L1 THIS IS AN ELECTRONICALLY VERIFIED FINAL REPORT 05/30/2024 9:26 AM - Electronically signed by You Hills M.D. T: Report ID: [id number] Reading Location: [id number] us Anneliese Byers NP IMG XR PROCEDURES Final Res ult * CT Lung Cancer Screening (03/25/2024 12:46 PM DIRECTOR OF INSTRUCTIONAL TECHNOLOGY) Anatomical Region Laterality Modality Chest N/A Computed Tomogra phy 03/26/2024 9:54 AM DIRECTOR OF INSTRUCTIONAL TECHNOLOGY Narrative 03/26/2024 10:03 AM DIRECTOR OF INSTRUCTIONAL TECHNOLOGY EXAM DESCRIPTION: CT LUNG CANCER SCREENING REASON [...] Electronically signed by Almita Miller D.O. PS: PUSHPA Report ID: [id number] Reading Location: [id number] Procedure Note Almita Miller DO - 03/26/2024 [...]
--- OUTSIDE RECORDS SUMMARY | 2024-07-09 10:46 | XMS_ITS | Clinical Summary ---
Author Organization [facility] Address [facility] [place] [address] Care Team Providers Care Filtration Operator Name Role Phone Jorge Luis Hill MD Primary Care Provider [phone] Allergies No known active allergies Medications rosuvastatin [...] capsule 2 Active vitamin D2, ergocalciferol , 25509 UNITS capsule 2 Active escitalopram 20 MG [...] Comments Blood Pressure 106/76 05/05/2021 12:15 PM GAUGE AND INSTRUMENT INSPECTOR Pulse 83 05/05/2021 12:15 PM GAUGE AND INSTRUMENT INSPECTOR Temperature 36.1 C (96.9 F) 05/05/2021 11:58 AM GAUGE AND INSTRUMENT INSPECTOR Respiratory Rate 14 05/05/2021 12:15 PM GAUGE AND INSTRUMENT INSPECTOR Oxygen Saturation 94% 05/05/2021 12:15 PM GAUGE AND INSTRUMENT INSPECTOR Inhaled Oxygen Concentration - - Weight 108.4 kg (239 lb) 05/05/2021 10:03 AM GAUGE AND INSTRUMENT INSPECTOR Height 157.5 cm (5' 2 ) 05/05/2021 10:03 AM GAUGE AND INSTRUMENT INSPECTOR Body Mass Index 43.71 05/05/2021 10:03 AM GAUGE AND INSTRUMENT INSPECTOR Plan of Treatment Health Maintenance Due Date Last Done Comments Annual Physical 02/04/1968 Hepatitis C 1983 Pneumococcal Vaccine: 50+ Years (1 of 2 - PCV) 02/04/1984 Mammogram Screening 2005 Zoster Vaccines (1 of 2) 2015 COVID-19 Vaccine (3 - 2023-2 5 season) 2023 08/26/2020, 08/05/2020 DTaP, Tdap and Td Vaccines ( 2 [...] Diagnosis Comments COLONOSCOPY Routine 05/05/2021 11:05 AM GAUGE AND INSTRUMENT INSPECTOR from Last 3 Months or Most Recently Relevant to Health Maintenance Results * Colonoscopy (05/05/2021 11:05 AM GAUGE AND INSTRUMENT INSPECTOR) Narrative Estuardo Wells MD - 05/05/2021 11:05 AM GAUGE AND INSTRUMENT INSPECTOR Estuardo Wells MD 05/05/2021 12:05 PM ESTUARDO [...] the left lateral decubitus position, the Olympus [id number] colonoscope was introduced into the rectum and [...] of liver 04-14-2021 but was inpatient at [facility] - Will check to see if she had CT scan while inpatient Thank you for allowing me to care for your patient. She will follow-up with Dr. Hill as needed. Estuardo Wells M.D. Cc: Dr. Nithin Hill us Estuardo Wells MD GI PROCEDURE ORDERABLES Fin al Result from Last 3 Months or Most Recently Relevant to Health Maintenance Insurance [employer] Care Teams Filtration Operator Relationship Specialty Start Date End Date Jorge Luis Hill MD [address] [place] [phone] PCP - General FAMILY PRACTICE 11/25/19
--- OUTSIDE RECORDS SUMMARY | 2024-07-09 10:46 | XMS_ITS | Clinical Summary ---
Author Organization [facility] Address [address] [facility] [place] [address] Care Team Providers Care Intranet Developer Name Role Phone Jorge Luis Hill MD Primary Care Provider [phone] Medications PROAIR HFA 90 mcg/actuation inhaler INHALE [...] mg tablet Active naloxone (Narcan) 4 mg/spray [place], Non-Aerosol Narcan 4 mg/actuation nasal spray 03/18/19 [...] mg capsule celecoxib 100 mg capsule 01/16/20 Active cefUROXime axetil (CEFTIN) 500 mg tablet [...] of right breast 06/06/2018 Cigarette dependence 06/06/2018 Family History Medical History Relation Name Comments [...] of 3 - 19+ 3-dose series) 02/04/1984 FIT-DNA Q 3 years 2010 FIT/FOBT Q 1 year 2010 Flex Sig/CT Colonography Q 5 years 2010 ZOSTER VACCINE (1 of 2) 2015 BREAST [...] (11/14/2018) Anatomical Region Laterality Modality Breast Right Mammography us Mallory Khanski DO MAMMO ORDERABLES Final Resu lt from Last 3 Months or Most Recently Relevant to Health Maintenance Insurance [employer] Care Teams Intranet Developer Relationship Specialty Start Date End Date Jorge Luis Hill MD PCP - General Emergency Medicine 05/30/18
--- OUTSIDE RECORDS SUMMARY | 2024-07-09 10:46 | XMS_ITS | Encounter Summary ---
Author Organization [facility] Address [address] [place] [address] Phone Care Team Providers Care Occupational Therapist Rehab Manager Name Role Phone Jorge Luis Hill MD Primary Care Provider [phone] Encounter Details Date Type Department Care Team (Late st Contact Info) Description 05/07/2022 Documentation [facility] ([facility]) - [facility] ENT [address] [facility] [facility] [address] [place] [address] [place] [address] Amadeo Bazzi MD [address] [place] [address] Social History Tobacco Use Types Packs/Day Years Used Date Smoking Tobacco: Every Day Cigarettes 0.5 49.4 Started: 1975 Smokeless Tobacco: Never Comments:Formerly smoked [...] How often do you attend chur or mosque services? Never 12/22/2021 Do you belong to any clubs o r organizations such as anglican groups, unions, fraternal or athletic groups, or [...] place to sleep or slept in a fdc (including now)? No 12/22/2021 Comments No Sex and Gender Information Value Date Recorded Sex Assigned at Not on file Legal Sex Female 1:34 AM CONFERENCE RESERVATIONIST Gender Identity Not on file Sexual Orientation Not on file documented as of this encounter Plan of Treatment Not on file documented as of this encounter Visit Diagnoses Not on filedocumented in this encounter Additional Health Concerns Infection Onset Date Last Indicated Resolved Time MDR gram neg/ESBL 2022 2022 documented as of this encounter Care Teams Occupational Therapist Rehab Manager Relationship Specialty Start Date End Date Jorge Luis Hill MD PCP - General 04/30/18 documented as of this encounter
--- OUTSIDE RECORDS SUMMARY | 2024-07-09 10:46 | XMS_ITS | Continuity of Care Document ---
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 tel:[phone] Referring Provider: Lala Higgins, [place], [place], [address]. tel:[phone] PREV VISIT, EST, AGE 40-64 [facility], [address] [place], [place], [address], tel:[phone] [facility] PHysical (chief complaint) Routine Medical ExamHypertension, UnspecifiedGenera lized anxiety disorderHeadacheR outine Medical Exam 0 4 Nicolas Smith [address] [facility] [place], [address] , [place]. tel:[phone] Referring Provider: Lala Higgins [address], [place], [place], [address]. tel:[phone] OFFICE/OUTPA TIENT VISIT, [facility], [address], [place], [place], [address], [place] tel:[phone] [facility] [place] back pain (chief complaint)HT N (chief complaint)HL P (chief complaint)[place] (chief complaint) Dietary surveillance and counselingCOPDLum bagoHypertension, UnspecifiedOther and unspecified hyperlipidemia 4 Nicolas Johansen. [address], [place], [place], [address] , [place]. tel:[phone] Referring Provider: Lala Higgins [address], [place], [place], [address]. tel:[phone] OFFICE/OUTPA TIENT VISIT, [facility], [address], [place], [place], [address], [place] tel:[phone] [facility], [place] back pain (chief complaint)HT N (chief complaint)HL P (chief complaint)an xiety (chief complaint) Dietary surveillance and counselingHypoten tanja, UnspecifiedOther and unspecified hyperlipidemiaGen eralized anxiety disorderLumbago 4 Nicolas Smith [address], [place], [place], [address] , [place]. [phone] Referring Provider: Lala Higgins [address], [place], [place], [address]. tel:[phone] OFFICE/OUTPA TIENT VISIT, [facility], [address], [place], [place], [address], [place] tel:[phone] [facility], [place] hypotension (chief complaint)ba ck pain (chief complaint)fa tigue (chief complaint)easton nd fx (chief complaint) Dietary surveillance and counselingHypoten tanja, UnspecifiedLumbag oFatigue / MalaiseClosed fracture of base of other metacarpal bone(s) 4 Nicolas Johansen. [address], [place], [place], [address] , [place]. tel:[phone] Referring Provider: Lala Higgins [address], [place], [place], [address]. tel:[phone] OFFICE/OUTPA TIENT VISIT, [facility], [address], [place], [place], [address], [place] tel:[phone] [facility], [place] back pain (chief complaint)so re throat (chief complaint)easton nd pain (chief complaint) Dietary surveillance and counselingPain in joint involving handLumbagoThroat pain 4 Nicolas Smith [address], [place], [place], [address] , [place]. tel:[phone] Referring Provider: Lala Higgins [address], [place], [place], [address]. tel:[phone] OFFICE/OUTPA TIENT VISIT, [facility], [address], [place], [place], [address], [place] tel:[phone] [facility], [place] depression (chief complaint)[place] (chief complaint)ba ck pain (chief complaint) Dietary surveillance and counselingLumbago COPDHypertension, UnspecifiedRESTLE SS LEGS SYNDROME 4 Nicolas Smith [address], [place], [place], [address] , [place]. tel:[phone] Referring Provider: Lala Higgins [address], [place], [place], [address]. tel:[phone] OFFICE/OUTPA TIENT VISIT, [facility], [address], [place], [address], [place] tel:[phone] [facility], [place] anxiety (chief complaint)ba ck pain (chief complaint)UT I (chief complaint)[place] (chief complaint) Dietary surveillance and counselingUrinary Tract InfectionGenerali zed anxiety disorderLumbagoCO PD 4 Nicolas Smith [address], [place], [place], [address] , [place]. tel:[phone] Referring Provider: Eleno Valenzuela, [address], [place], [place], [address]. tel:[phone] OFFICE/OUTPA TIENT VISIT, [facility], [address], [place], [place], [address], [place] tel:[phone] [facility], [place] back pain (chief complaint)sw eet smell in urine (chief complaint)HT N (chief complaint)in somnia (chief complaint) Dietary surveillance and counselingLumbago Metabolic SyndromeHypertens ion, UnspecifiedInsomn ia, Other 3 Nicolas Johansen. [address], [place], [place], [address] , [place]. [phone] Referring Provider: Eleno Valenzuela, [address], [place], [place], [address]. tel:[phone] OFFICE/OUTPA TIENT VISIT, [facility], [address], [place], [address], [place] tel:[phone] [facility], [place] back pain (chief complaint)an xiety (chief complaint)fa tigue (chief complaint) Dietary surveillance and counselingLumbago Generalized anxiety disorderFatigue / Malaise 3 Nicolas Johansen. [address], [place], [place], [address] , [place]. tel:[phone] Referring Provider: Lala Higgins [address], [place], [place], [address]. tel:[phone] OFFICE/OUTPA TIENT VISIT, [facility], [address], [place], [place], [address], [place] tel:[phone] [facility], [place] HTN (chief complaint)ba ck pain (chief complaint)an xiety (chief complaint) Dietary surveillance and counselingHyperte nsion, UnspecifiedLumbag oGeneralized anxiety disorder 3 Nicolas Johansen. [address], [place], [place], [address] , [place]. tel:[phone] Referring Provider: Eleno Valenzuela, [address], [place], [place], [address]. tel:[phone] OFFICE/OUTPA TIENT VISIT, [facility], [address], [place], [place], [address], tel:[phone] [facility], [place] back pain (chief complaint)an xiety (chief complaint)HT N (chief complaint)[place] (chief complaint) Dietary surveillance and counselingLumbago Hypertension, UnspecifiedGenera lized anxiety disorderCOPD 3 Nicolas Johansen. [address], [place], [address] , [place]. [phone] Referring Provider: Eleno Valenzuela, [address], [place], [place], [address]. tel:[phone] OFFICE/OUTPA TIENT VISIT, [facility], [address], [place], [place], [address], [place] tel:[phone] [facility] [place] otalgaia (chief complaint)ba ck pain (chief complaint)an xiety (chief complaint)HT N (chief complaint)sl eep apnea (chief complaint) Dietary surveillance and counselingOther acute otitis externaHypertensi on, UnspecifiedGenera lized anxiety disorderSleep Apnea 3 Nicolas Johansen. [address], [place], [place], [address] , [place]. [phone] Referring Provider: Eleno Valenzuela, [address], [place], [place], [address]. tel:[phone] OFFICE/OUTPA TIENT VISIT, [facility], [address], [place], [place], [address], [place] tel:[phone] [facility] [place] lumbago (chief complaint)pr eDM (chief complaint)HL P (chief complaint)an xiety (chief complaint)fa tigue (chief complaint) Dietary surveillance and counselingSleep ApneaLumbagoMetab olic SyndromeOther and unspecified hyperlipidemia 3 Nicolas Johansen. [address], [place], [place], [address] , [place]. tel:[phone] Referring Provider: Lala Higgins [address], [place], [place], [address]. tel:[phone] PREV VISIT, EST, AGE 40-64 [facility] [place], [address], [place], [place], [address], [place] tel:[phone] [facility], [place] Physical (chief complaint) Routine Medical ExamDietary surveillance and counselingLumbago Routine Medical Exam 3 Nicolas Johansen. [address], [place], [place], [address] , [place]. tel:[phone] Referring Provider: Eleno Valenzuela, [address], [place], [place], [address]. tel:[phone] OFFICE/OUTPA TIENT VISIT, [facility], [address], [place], [place], [address], [place] tel:[phone] [facility], [place] back pain (chief complaint)ri ght side swelling (chief complaint) Dietary surveillance and counselingLumbago Enlargement of lymph nodesViral Infection, Unspecified 3 Nicolas Johansen. [address], [place], [place], [address] , [place]. tel:[phone] Referring Provider: Lala Higgins [address], [place], [place], [address]. tel:[phone] OFFICE/OUTPA TIENT VISIT, [facility], [address], [place], [place], [address], [place] tel:[phone] [facility] [place] COPD (chief complaint)GE RD (chief complaint)De pression (chief complaint)it saw (chief complaint) Dietary surveillance and counselingLumbago Hypertension, UnspecifiedGenera lized anxiety disorderCOPD 3 Nicolas Johansen. [address], [place], [place], [address] , [place]. tel:[phone] Referring Provider: Lala Higgins [address], [place], [place], [address]. tel:[phone] OFFICE/OUTPA TIENT VISIT, [facility], [address], [place], [place], [address], [place] tel:[phone] [facility], [place] back pain (chief complaint)an xiety (chief complaint)El bow pain (chief complaint) LumbagoGeneralize d anxiety disorderDietary surveillance and counselingPain in joint involving upper arm 3 Nicolas Johansen. [address], [place], [place], [address] , [place]. tel:[phone] Referring Provider: Lala Higgins [address], [place], [place], [address]. tel:[phone] OFFICE/OUTPA TIENT VISIT, [facility], [address], [place], [place], [address], [place] tel:[phone] [facility], [place] back pain (chief complaint)an xiety (chief complaint)di zziness (chief complaint) Dietary surveillance and counselingLumbago Generalized anxiety disorderDizziness Anal and rectal polyp 3 Nicolas Johansen. [address], [place], [place], [address] , [place]. [phone] Referring Provider: Lala [address], [place], [place], [address]. tel:[phone] OFFICE/OUTPA TIENT VISIT, [facility], [address], [place], [place], [address], [place] tel:[phone] [facility], [place] back pain (chief complaint)HL P (chief complaint)an xiety (chief complaint) Dietary surveillance and counselingHyperte nsion, UnspecifiedLumbag oGeneralized anxiety disorderOther and unspecified hyperlipidemia 3 Nicolas Johansen. [address], [place], [place], [address] , [place]. [phone] Referring Provider: Lala Higgins [address], [place], [place], [address]. tel:[phone] OFFICE/OUTPA TIENT VISIT, [facility], [address], [place], [place], [address], [place] tel:[phone] [facility], [place] back pain (chief complaint)HL P (chief complaint)an xiety (chief complaint) Dietary surveillance and counselingLumbago Generalized anxiety disorderOther and unspecified hyperlipidemiaHyp ertension, Unspecified 2 Nicolas Johansen. [address], [place], [place], [address] , [place]. tel:[phone] Referring Provider: Eleno Valenzuela, [address], [place], [place], [address]. tel:[phone] OFFICE/OUTPA TIENT VISIT, [facility], [address], [place], [place], [address], [place] tel:[phone] [facility], [place] back pain (chief complaint)an xiety (chief complaint)fa ll (chief complaint)HL P (chief complaint)he adache (chief complaint) Dietary surveillance and counselingOther and unspecified hyperlipidemiaHea dacheLumbagoGener alized anxiety disorderInfluenza Vaccine 2 Nicolas Johansen. [address], [place], [place], [address] , [place]. tel:[phone] Referring Provider: Eleno Valenzuela [address], [place], [place], [address]. tel:[phone] OFFICE/OUTPA TIENT VISIT, [facility], [address], [place], [place], [address], [place] tel:[phone] [facility], [place] insomnia (chief complaint)ba ck pain (chief complaint)an xiety (chief complaint) Dietary surveillance and counselingHyperte nsion, UnspecifiedInsomn ia, OtherLumbagoCOPD 2 Nicolas Johansen. [address], [place], [place], [address] , [place]. tel:[phone] Referring Provider: Lala Higgins [address], [place], [place], [address]. tel:[phone] OFFICE/OUTPA TIENT VISIT, EST [facility], [address], [place], [place], [address], [place] tel:[phone] [facility] back pain (chief complaint)di zziness (chief complaint)fa tigue (chief complaint)hy pertension (chief complaint) Dietary surveillance and counselingHeadach eMajor depressive affective disorder, single episode, mild degreeFatigue / MalaiseLumbagoDiz ziness 2 Nicolas Johansen. [address], [place], [address] , [place]. tel:[phone] Family History Family Member Type Diagnosis Age [...]
--- OUTSIDE RECORDS SUMMARY | 2024-07-09 10:46 | XMS_ITS | Encounter Summary ---
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
--- OUTSIDE RECORDS SUMMARY | 2024-07-09 10:46 | XMS_ITS | CONTINUITY OF CARE DOCUMENT ---
Author Name meli, meli Address Unknown Organization [facility] Address [address] [facility] [address] [place] [address] Phone [phone] Care Team Providers Care Electrician Journeyman Wireman Name Role Phone Oneil CANSECO, Bulmaro Unavailable [phone] JORGE LUIS QUINTANA MD Unavailable [phone] JORGE LUIS QUINTANA MD Unavailable [phone] PROBLEMS Condition Status Date Provider Notes TOBACCO ABUSE active Cathy Lorenzo ASTHMA active Cathy Lorenzo CAD-01/02 NUC EF 40 NORM completed - Bulmaro mak MD CAD-05/05 CAROTID NEG completed - Omar Vargas HTN-05/05 JESIKA DUP NEG completed - Bulmaro Riggs MD HTN-09/05 ECHO EF 55 completed - Bulmaro Mendieta DIZZINESS S/P KNIT GOODS WASHER SHUNT--stre ss nuc normal ef 57%, 10/2017 active Bulmaro Riggs MD SLEEP APNEA ON CPAP active Bulmaro Riggs MD Diabetes mellitus active Bulmaro Riggs MD HTN--echo ef 61%, 10/2020 active Omar harkins Shortness of breath active Bulmaro Riggs MD CAD--normal stress nuc 02/2021 active Omar Vargas Chronic back pain active Bulmaro Riggs MD HTN-09/04 ECHO EF 45-50 05/05 ECHO EF 35 ,EF 7/10 60% completed - Bulmaro Riggs MD CHEST PAIN-06/04 CATH DIFFUSE DISEASE LAD DIS active ? Bulmaro Riggs MD ENCOUNTERS Date Type Provider Location Encounter Diagnosis - In-person encounter Office Visit Bulmaro Riggs MD [place] [facility] - In-person encounter Office Visit Bulmaro Riggs MD [place] [facility] - In-person encounter Office Visit Bulmaro Riggs MD [place] [facility] - In-person encounter Office Visit Bulmaro Riggs MD [place] [facility] CAD-05/05 CAROTID NEGHTN--echo ef 61%, AD--normal stress nuc 02/2021 - In-person encounter Office Visit Bulmaro Riggs MD [place] [facility] Shortness of breath - In-person encounter Office Visit Bulmaro Riggs MD [facility] HTN-09/04 ECHO EF 45-50 05/05 ECHO EF 35 ,EF 7/10 60%CAD-01/02 NUC EF 40 NORMHTN-05/05 JESIKA DUP NEGHTN-09/05 ECHO EF 55DIZZINESS S/P KNIT GOODS WASHER SHUNT--stress nuc normal ef 57%, 10/2017HTN--echo ef 61%, hronic back pain - In-person encounter Office Visit Bulmaro Riggs MD [place] [facility] - In-person encounter Office Visit Bulmaro Riggs MD [place] [facility] - In-person encounter Office Visit Bulmaro Riggs MD [place] [facility] - In-person encounter Office Visit Bulmaro Riggs MD [place] [facility] Diabetes mellitus - In-person encounter Office Visit Bulmaro Riggs MD [place] [facility] - In-person encounter Office Visit Bulmaro Riggs MD [place] [facility] - In-person encounter Office Visit Bulmaro Riggs MD [place] [facility] - In-person encounter Office Visit Bulmaro Riggs MD [place] [facility] - In-person encounter Office Visit Bulmaro Riggs MD [place] [facility] - In-person encounter Office Visit Bulmaro Riggs MD [place] [facility] - In-person encounter Office Visit Bulmaro Riggs MD [place] [facility] DIZZINESS S/P KNIT GOODS WASHER SHUNT--stress nuc normal ef 57%, 10/2017SLEEP APNEA ON CPAP - In-person encounter Office Visit Bulmaro Riggs MD [place] [facility] - In-person encounter Office Visit Bulmaro Riggs MD [place] [facility] - In-person encounter Office Visit Bulmaro Riggs MD [place] [facility] - In-person encounter Office Visit Bulmaro Riggs MD [facility] - In-person encounter Office Visit Bulmaro Riggs MD [place] [facility] - In-person encounter Office Visit Bulmaro Riggs MD [place] [facility] - In-person encounter Office Visit Bulmaro Riggs MD [place] [facility] CHEST PAIN-06/04 CATH DIFFUSE DISEASE LAD DISHTN-09/04 ECHO EF 45-50 05/05 ECHO EF 35 ,EF 09/05 60% - In-person encounter Office Visit Bulmaro Riggs MD [place] [facility] VITAL SIGNS Date Observation Value Provider [...] blood pressure, cuff size large Mi deven English blood pressure, diastolic 60 mm[Hg] Mi deven English blood pressure, systolic 100 mm[Hg] Darren kvng English oxygen saturation, oximetry 98 % Adilene English respiratory rate E&M 16 /min Natalie marin English pulse rate 94 /min Adilene Lang d weight E&M 232 [lb_av] Adilene Cokeran d height E&M 63 [in_i] Adilene Hollan [...] blood pressure, systolic 122 mm[Hg] Ker ri Bebetojoshuanfelder oxygen saturation, oximetry 96 % Lorraine Rickieer respiratory rate E&M 18 /min Lorraine Félix madhuer pulse rate 108 /min Lorraine Crisse lder height E&M 63 [in_i] Lorraine Radha padillaer Body Mass Index (Ratio) 36.84 kg/m2 Jon Riggs MD blood pressure, diastolic 80 mm[Hg] Rh shyann Vila blood pressure, systolic 118 mm[Hg] Rho ndyuval Vila oxygen saturation, oximetry 97 % Mary [...] Chastit y Ketty weight E&M 176 [lb_av] Siena Ketty height E&M 63 [in_i] Anaity Ketty Body Mass Index (Ratio) 36.49 kg/m2 [...] Kwon blood pressure, diastolic 80 mm[Hg] Cy nttirso Kwon blood pressure, systolic 120 mm[Hg] Omaira lora Kwon oxygen saturation, oximetry 96 % Luz Maria Kwon respiratory rate E&M 18 /min Luz Maria Kwon pulse rate 96 /min Luz Marialora Bernalbel l weight E&M 203 [lb_av] Luz Maria [...] Nitza Bailey weight E&M 174 [lb_av] Nitza Bailye height E&M 63 [in_i] Nitza Bailey Body [...] [place] blood pressure, systolic 170 mm[Hg] Ronan pierre [place] pulse rate 108 /min Neri [place] oxygen saturation, oximetry 98 % Neri [place] respiratory rate E&M 20 /min Neri [place] weight E&M 196 [lb_av] Neri Youngbloodacop blood pressure, diastolic 96 mm[Hg] Igor lucas Gómez RN blood pressure, systolic 148 mm[Hg] Xiang Salinasbenjamin GARCÍA pulse rate 100 /min Xiang Salinasbenjamin GARCÍA oxygen saturation, oximetry 100 % Xiang Salinasbenjamin GARCÍA respiratory rate E&M 20 /min Xiang hammond RN weight E&M 191 [lb_av] Xiang Gómez RN blood pressure, diastolic, left arm 79 mm [...] Normal Absolute Neutrophil count 5491 cells/mcL [employer] [id number] Normal platelet count 258 THOUSAND/UL [employer] 140-400 [...] Status Instructions Dates Provider Indications Com ments losartan 50 mg tablet active Take 1 tablet by mouth once a day Lorraine Mack sulfamethoxazole- trimethoprim 800-160 mg tablet active TAKE ONE (1) TABLET BY MOUTH TWICE DAILY Bulmaro Riggs MD pantoprazole 40 mg tablet,delayed release (DR/EC) active Bulmaro Riggs MD losartan 50 mg tablet completed TAKE 1 TABLET BY MOUTH DAILY - Lorraine Mack losartan 50 mg tablet completed Take 1 tablet by mouth once a day - Donna Velasquez furosemide 40 mg tablet active TAKE 1 TABLET BY MOUTH DAILY [facility] diltiazem HCl (Cardizem CD) 360 mg capsule,extended release 24hr active TAKE 1 CAPSULE BY MOUTH EVERY DAY Omar Vargas furosemide 40 mg tablet completed Take 1 tablet by mouth once a day due for follow up - Omar Vargas diltiazem HCl (Cardizem CD) 360 mg capsule,extended release 24hr completed Take 1 capsule by mouth once a day - Justyn Tamayo furosemide 40 mg tablet completed TAKE 1 [...] ciprofloxacin HCl 500 mg tablet active Omar Eleanorrima tizanidine 4 mg tablet completed - Omar Webstersandovalorb cetirizine 10 mg tablet active Omar Vargas TRELEGY ELLIPTA 100-62.5-25 MCG/INH INHALATION AEROSOL POWDER [...] active 1 tablet three times a day [facility]icy[facility]om[facility] 10 mg capsule completed 1 capsule twice a day - Bulmaro Riggs MD CATAPRES 0.1 MG ORAL TABLET active 1 tablet once a day Omar Vargas alendronate 70 mg tablet completed 1 tablet once a week - Bulmaro Riggs MD ProAir HFA 90 mcg/actuation HFA aerosol inhaler active as needed Joiestpamela Hdez VITAMIN D3 63645 UNIT ORAL TABLET active Take once a [...] 1 tablet by mouth twice daily - Nitzadelaney Bailey metformin 500 mg tablet completed 1 [...] mg tablet active once a day Cathy Lorenzo ADVAIR DISKUS 250-50 MCG/DOSE INHALATION AEROSOL POWDER BREATH ACTIVATED completed twice daily - Anushka Waterman NAPROXEN SODIUM TB24 completed 500 mg daily - Xiang Gómez RN HYDROCODONE-IBUPR OFEN TABS completed 500/50 qid - Xiang Gómez RN ALBUTEROL 90 MCG/ACT AERS completed - Neri Lewis PROVENTIL HFA AEROSOL SOLUTION completed QID - Neri Youngbloodacojovon VIJAY 5-40 MG ORAL TABLET completed ONE TAB. DAILY - Xiagn Gómez RN SOCIAL HISTORY Date Observation Value [...] P atient has been counseled to quit. Omar Websterrima social history reviewed E&M revi ewed - no changes required Omar Stewartshahana drug use none Paul Mishra alcohol use, average drinks per day social Paul Mishra alcohol use yes Paul Mishra social history E&M Lives with fa alex/friends M arital Status: E thnicity: Smoking History: P atient currently smokes every day. P atient has been counseled to quit. Paul Mishra social history reviewed E&M revi ewed - no changes required Paul Mishra physical exercise, frequency, days per week no Lorraine Mack caffeine use, averag e drinks per day yes Lorraine Mack smoking/tobacco cess ation, patient education and counseling yes Lorrainejoann Mack number of years as a smoker 40 a Lorraine Mack smoking history, tot al pack/day 1.2 Lorraine Mack cigarette use yes Lorraine alexander smoking status Current every day smoker Chao eric Mack physical exercise, frequency, days per week no David Segura caffeine use, averag e drinks per day yes David Segura smoking/tobacco cess ation, patient education and counseling yes David Segura number of years as a smoker 40 a David Segura smoking history, tot al pack/day 1.2 David Segura cigarette use yes David Robles os smoking status Current every day smoker N rito Segura social history E&M Lives with fa alex/friends M arital Status: E thnicity: Smoking History: P atlindsay currently smokes every day. P atlindsay has been counseled to quit. David Segura social history reviewed E&M revi ewed - no changes required David Segura social history E&M Lives with fa alex/friends M arital Status: E garretti [id number]|2024-07-09 10:46:00|2024-07-09 10:45:00|XMS_ITS|RICKG JULIO|External Medical Summaries|[id number]|" Clinical Summary Created on: July 09, 2024 Bev Grossman : 1965 Sex: Female Author Organization [facility] Address [address] [place] [address] Care Team Providers Care Electrician Journeyman Wireman Name Role Phone Jorge Luis Quintana MD Primary Care Provider [phone] Source Comments [facility],non-owned Affiliates and Associated Physician Practices is amultiple site organization consisting of ambulatory clinics and hospital sitesin [place], [place], [place] and [place]. This disclosure is being madepursuant to the Care Everywhere program and may not contain all information available regarding this patient. Last updated 17.[facility] Allergies No known active allergies Medications * Be aware that medications may not be up to date on this document. Alwaysverify current medications with the patient. carvedilol (COREG) 25 MG tablet as directed 7 Active cloNIDine (CATAPRES) 0.1 MG tablet as directed 7 Active furosemide (LASIX) 40 MG tablet as directed 8 Active montelukast (SINGULAIR) 10 MG tablet as directed 8 Active KLOR-CON 10 10 MEQ tablet as directed 7 Active sertraline (ZOLOFT) 25 MG tablet once daily Take 3 tablets by mouth Daily. 0 8 Active simvastatin (ZOCOR) 40 MG tablet at bedtime Take 1 tablet nightly. 0 8 Active albuterol HFA (VENTOLIN HFA) 108 (90 [...] 1 (one) tablet by mouth at bedtime 4 Active aspirin EC (Ecotrin) 81 MG tablet Take 1 (one) tablet by mouth every morning Active budeson-glycop yrrol-formoter ol (Breztri Aerosphere) 160-9-4.8 MCG/ACT inhaler Inhale 2 (two) puffs by mouth 2 times daily 3 Active vitamin D3 (Cholecalcifer ol) 10 MCG (400 UNIT) capsule Take 1 (one) capsule by mouth every 7 days Active Cyanocobalamin (Dodex) 1000 MCG/ML SOLN Inject 1,000 (one thousand) mcg subcutaneously as directed 2 Active dicyclomine (Bentyl) 20 MG tablet Take 1 (one) tablet by mouth 4 times daily 4 Active escitalopram (Lexapro) 20 MG tablet Take 1 (one) tablet by mouth as directed 4 Active loratadine (Claritin) 10 MG tablet Take 1 (one) tablet by mouth once daily 3 Active metFORMIN (Glucophage) 1000 MG tablet Take 1 (one) tablet by mouth once daily Active naloxone HCl (Narcan) 4 MG/0.1ML nasal spray [place] 40 (forty) sprays into the nose as directed 3 Active omeprazole (PriLOSEC) 40 MG capsule Take 1 (one) capsule by mouth once daily 4 Active QUEtiapine (SEROquel) 100 MG tablet Take 1 (one) tablet by mouth every morning 4 Active QUEtiapine (SEROquel) 400 MG tablet Take 1 (one) tablet by mouth as directed 4 Active Januvia 50 MG tablet Take 1 (one) tablet by mouth once daily 3 Active sulfamethoxazo le-trimethopri m (Bactrim DS; Septra DS) 800-160 MG tablet Take 1 (one) tablet by mouth 2 times daily 4 Active albuterol (Proventil;Ramon tolin) (2.5 MG/3ML) 0.083% nebulizer solution Inhale 2.5 (two and one-half) mg by mouth as directed 3 Active rOPINIRole (Requip) 0.5 MG tablet Take 1 (one) tablet by mouth once daily 4 Active rOPINIRole (Requip) 1 MG tablet Take 1 (one) tablet by mouth as directed 3 Active rosuvastatin (Crestor) 20 MG tablet Take 1 (one) tablet by mouth once daily Active Active Problems No known active problems Encounters Date Type Department Care Team Description 06/24/2024 Travel from Last 3 Months Immunizations Immunization Administration Dates Next Due INFLUENZA VACCINE, QUADR. [...] = 0.6 oz pur e alcohol) Comments Unknown Sex and Gender Information Value Date Recorded Sex Assigned at Not on file Legal Sex Female 7:26 PM COUNTER CONTROL OPERATOR Gender Identity Not on file Sexual Orientation Not on file Last Filed Vital Signs Vital Sign Reading Time Taken Comments Blood Pressure 155/92 03/24/2023 2:17 PM COUNTER CONTROL OPERATOR Pulse 101 03/24/2023 2:17 PM COUNTER CONTROL OPERATOR Temperature 36.7 C (98 F) 03/24/2023 2:17 PM COUNTER CONTROL OPERATOR Respiratory Rate 18 03/24/2023 2:17 PM COUNTER CONTROL OPERATOR Oxygen Saturation 96% 03/24/2023 2:17 PM COUNTER CONTROL OPERATOR Inhaled Oxygen Concentration - - Weight 84.3 kg (185 lb 12.8 oz) 03/24/2023 2:17 PM COUNTER CONTROL OPERATOR Height 162.6 cm (5' 4 ) 03/24/2023 2:17 PM COUNTER CONTROL OPERATOR Body Mass Index 31.89 03/24/2023 2:17 PM COUNTER CONTROL OPERATOR Plan of Treatment Upcoming Encounters Date Type Department Care Team (Late st Contact Info) Description 10/11/2024 1:00 PM CDT Office Visit [facility] - Endocrinology [address] [place] [address], [place] [address] Mee Yates MD [address] [place] [address] [place] [address] Health Maintenance Due Date Last Done Comments [...] 50+ (1 of 2 - PCV) 02/04/1984 ZOSTER VACCINE (1 of 2) 2015 MAMMOGRAM 11/14/2020 11/14/2018 SCREENING FOR DIABETES 03/15/2023 COVID-19 VACCINE ( season) 2023 03/02/2022, 10/11/2021, 08/26/2020, Additional history exists DEPRESSION SCREENING 02/28/2024 INFLUENZA VACCINE (Season Ended) 2024 12/28/2022, 01/10/2022, 03/05/2021 DTAP/TDAP/TD VACCINES (2 - Td or Tdap) 12/16/2029 12/17/2019 HIB VACCINE Aged Out No longer eligi ble based on patient's age to complete this topic HPV VACCINE Aged Out No longer eligi ble based on patient's age to complete this topic MENINGOCOCCAL (Group B) VACCINE SHARED DECISION-MAKING Aged Out No longer eligible based on patient's age to complete this topic MENINGOCOCCAL GROUPS A/C/Y/W VACCINE Aged Out No longer eligible based on patient's age to complete this topic Insurance [facility] Care Teams Electrician Journeyman Wireman Relationship Specialty Start Date End Date Jorge Luis Quintana MD [address] [place] [id number] PCP - General 02/10/17 "
[2024-07-09 11:59] LABS: Hepatitis B Surface Antigen Negative (Negative)
[2024-07-09 12:06] LABS: HAV RESULT Negative (Negative); Hepatitis B Core IgM Result Negative (Negative)
[2024-07-09 12:17] LABS: Hepatitis C Virus Antibody Negative (Negative)
[2024-07-09 12:24] LABS: Anion Gap 9 mmol/L (4-12); Blood Urea Nitrogen 21 mg/dL (7-17); Calcium 9.6 mg/dL (8.4-10.2); Carbon Dioxide 26 mmol/L (22-30); Chloride 101 mmol/L (98-107); Estimated Glomerular Filt Rate 38; Glucose 82 mg/dL (65-110); Sodium 136 mmol/L (137-145)
[2024-07-09 13:31] LABS: Folic Acid 3.1 ng/mL (2.76->20)
== END 2024-07-09 10:29 | disposition home or self-care (01) ==
LOC: ANHLAB 10:30
PROVIDERS: PCP Emergency Medicine; Visit Provider Emergency Medicine
DX: R94.5 Abnormal results of liver function studies (principal); N28.9 Disorder of kidney and ureter, unspecified
CPT/HCPCS: 36415; 80048; 80074; 82607; 82746

== ENCOUNTER 2024-07-19 15:30 | Outpatient (RCR) | payer OTHER, SELFPAY ==
--- NOTE | 2024-07-04 12:57 | BUSTOPEVAL1 ---
Assessment and note entered by Radha Steele BASKETBALL COMMENTATOR Evaluation Information Assessment Status Evaluation Diagnosis R13.19 other dysphagia ICD-10 Condition Codes (ST) Dysphagia, oropharyngeal phase R13.12 Subjective Information Patient was referred for a skilled ST evaluation due to ongoing swallowing difficulties that have increased over the past month. Patient had a modified barium swallow study in March of 2024 that indicated laryngeal penetration on all consistencies trialed with no overt aspiration noted during the study. Patient tolerated trials of thin fluids via straw with deep laryngeal penetration to the vocal cords. Patient was instructed to avoid straw use due to the increased risk for aspiration. Laryngeal penetration present due to reduced laryngeal elevation placing patient at risk for aspiration. Recommendation was given at that time to address laryngeal elevation through outpatient ST treatment to improve function and decrease risk for aspiration. Patient reported that she has difficulty swallowing and often foods/fluids get stuck in her throat and she has to regurgitate them and attempt to swallow again in smaller segments. Patient was not on oxygen during the session but does require oxygen when out of her home. 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 Patient had esophageal dilation several years ago and reported that her swallowing difficulties resolved after that was done. She recently had a scope completed and it did not indicate that esophageal dilation was needed at that time. She just recently had all of her teeth removed and is getting fitted for impressions for dentures on 07-04-24. She reported that she does have an increase in difficulty attempt to chew tough textured foods due to lack of dentition at this time. Reported Pain Level Pain Score 0: Self Report Assessment ST Clinical Summary Patient was referred for a skilled ST evaluation due to ongoing swallowing difficulties with a recent increase in difficulty over the past month. Patient had a modified barium swallow study in March of 2024 that indicated laryngeal penetration on all consistencies trialed with no overt aspiration episodes noted during the study. Patient tolerated trials of thin fluids via straw with deep laryngeal penetration to the vocal cords . Patient was instructed to avoid straw use due to the increased risk for aspiration. Laryngeal penetration present due to reduced laryngeal elevation placing patient at risk for aspiration. Recommendation was given at that time to address laryngeal elevation through outpatient ST treatment to improve function and decrease risk for aspiration. Patient reported that she often coughing/chokes on foods and fluids resulting in regurgitation of bolus and attempt to swallow again in smaller segments. 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 Patient was seen with trials of cold fluids, puree and solids trials during the session with coughing noted on cracker and throat clear post deglutition with applesauce trial. When instructed to utilize a chin tuck to improve airway protection patient stated that this technique helped significantly and continued to utilize throughout the assessment. The MASA was given with a score of 177 indicating mild dysphagia at this time. Recommendation for skilled ST treatment to target compensatory techniques/training, laryngeal elevation/adduction exercises and diet modification/training to improve airway protection and decrease risk for aspiration. Recommendation for skilled ST for mild dysphagia 1x/week for 10 visits. Plan of Care Interventions Treatment of Swallowing Dysfunction Treatment Frequency and 1x/week for 10 visits Duration These treatments will address the objective and functional deficits as defined above. The patient will be advanced safely and appropriately in order for the patient to progress towards his/her prior level of function. Additional exercises will be introduced and as well as a comprehensive home exercise program upon discharge, if needed, ?to ensure carryover of functional gains achieved in the clinic. This treatment plan has been reviewed and agreement upon by the patient.
--- NOTE | 2024-07-04 12:57 | OPREHPOC ---
Outpatient Therapy Plan of Care This is a Multidisciplinary Plan of Care that may contain components documented by all disciplines (PT, OT, and ST.) ST Problem 1 ST Problem #[address] Goal 1 Goal / Goal Update 1. Patient will participate in home programming to improve carryover/generalization of skills to home environment. Target Visit [address] Problem #[address] Goal 1 Goal / Goal Update 1. Patient will utilize trained compensatory techniques to improve airway protection and decrease risk for aspiration with no overt signs or symptoms of aspiration and minimal cues. Target Visit [address] Problem #[address] Goal 1 Goal / Goal Update 1. Patient will perform chin tuck against resistance exercises 10 reps 3 sets with minimal cues to improve swallowing function. 2. Patient will perform laryngeal elevation exercises 10 reps 3 sets with minimal cues to improve laryngeal elevation for airway protection. 3. Patient will perform laryngeal adduction exercises 10 reps 3 sets with minimal cues to improve laryngeal elevation for airway protection. Target Visit 10
== END 2024-07-23 10:22 | disposition home or self-care (01) ==
LOC: ANHST 15:30
PROVIDERS: Visit Provider Nurse Practitioner Family
DX: R13.19 Other dysphagia (principal)
CPT/HCPCS: 92526; 92610

== ENCOUNTER 2024-08-06 07:39 | Day surgery (SDC) | payer OTHER, SELFPAY ==
--- NOTE | 2024-07-30 08:00 | PC.NURSE ---
per Анна at Dr Mariscal's office patient no longer needs anticoagulant clearance
--- NOTE | ~2024-08-06 | XR_ITS ---
XR fluoroscopy no charge Indication: Bilateral L3, L4 and L5 medial branch block TECHNIQUE: Fluoroscopy used during Bilateral L3, L4 and L5 medial branch block performed by [Carroll Mariscal MD] on 08/06/2024. 75 seconds of fluoroscopy time with 17 fluoroscopic images captured. FINDINGS: Correlate with procedure note. IMPRESSION: Fluoroscopy used during Bilateral L3, L4 and L5 medial branch block. Reviewed, dictated and finalized at location [] IMPRESSION: Fluoroscopy used during Bilateral L3, L4 and L5 medial branch block .
--- NOTE | 2024-08-06 06:41 | WPDHPUPDATE1 ---
History and Physical Update Update Date/Time: 08/06/24 06:41 History and Physical has been reviewed, including an updated exam of the patient. There are NO changes in the patient's condition. Risks, benefits, and alternatives have been discussed and questions answered. Patient agrees to proceed with procedure.
--- NOTE | 2024-08-06 06:42 | W.PM.PROC2 ---
Procedure Note - Detailed Date of Procedure 08/06/24 Pre-op Diagnosis lumbosacral spondylosis, chronic low back pain Post-op Diagnosis Same Procedure Performed Diagnostic bilateral Lumbar Medial Branch/Dorsal Ramus Blocks at L3, L4, L5 Treating the bilateral L4-5, L5-S1 Facet Joints Under Fluoroscopic Guidance and with Contrast Control. ( 4 levels blocked). Surgeon Preet Mariscal MD Showroom Consultant None. Anesthesia Local Description of Procedure INFORMED CONSENT: Risks, benefits and alternatives to the procedure were discussed in detail with the patient who expressed explicit understanding and consent to proceed. Patient was informed verbally and in written form regarding the risks associated with the procedure including the low risk of serious infection, bleeding/bruising, allergic reaction, nerve or organ injury, paralysis, procedural site pain or discomfort, worsening pain and/or mobility, failure to treat and/or disfigurement. The patient expressed explicit understanding and consent to proceed. All materials required for the procedure were available prior to procedure start. Site and side were marked prior to procedure and confirmed in the presence of the patient. PROCEDURE IN DETAIL: The patient was brought to the procedural suite and placed in the prone position. Patient was made comfortable with use of pillows under the head/chest, hips and ankles. Skin overlying the injection site on the affected side(s) was prepared broadly with ChloraPrep applicator and draped in a sterile manner. Aseptic technique was used throughout. The endplates of the vertebral bodies at the site(s) of interest were aligned in the AP view. Ipsilateral oblique angulation was utilized to optimize visualization of the intersection between the superior articulating process and transverse process at each target site. Local anesthesia was established by infiltration with approximately 5 mL of 1% lidocaine via a 1-1/2 inch 27-gauge needle. A 25-gauge 5.0 inch Quincke spinal needle was advanced until the needle tip contacted periosteum at the target site, right L3. Lateral view was utilized to confirm the appropriate placement of the needle tip just anterior to the facet line and superior to the pedicle. In the Lateral view, 0.25 mL of Omnipaque 300 contrast medium was injected after negative aspiration for CSF, blood or other bodily fluid, showing appropriate extra-articular spread of contrast without evidence of intravascular, foraminal or intrathecal placement. A 0.5 mL solution of 0.5% PF bupivacaine was injected after negative repeat aspiration. Appropriate spread of the injectate was confirmed with washout of previously injected contrast. No parasthesias were elicited. Needle was removed completely intact without difficulty. The same exact procedure was repeated for all remaining levels on the ipsilateral side, right L4, L5 medial branches/dorsal ramus, modified as necessary to accommodate for the new target location with identical findings and results and no evidence of complication. The same exact procedure was repeated for all remaining levels on the contralateral side, left L3, L4, L5 medial branches/dorsal ramus, modified as necessary to accommodate for the new target location with identical findings and results and no evidence of complication. Images were saved and documented in the patient chart. Patient's skin was cleaned and sterile bandage applied. The patient tolerated the procedure well. The patient was transported to the recovery area in stable condition where they were observed for an appropriate amount of time prior to discharge, without evidence of complication. Patient was instructed on the appropriate completion of a pain diary over the next 12-24 hours. The patient was instructed to avoid excessive activity for the next 48 hours, including climbing and frequent use of stairs. Showers only for 48 hours. They were instructed not to drive or operate heavy machinery for 24 hours. They are to monitor for severe headaches, fevers, chills, night sweats, erythema/swelling at the site or any other signs of infection, bleeding/bruising, bowel or bladder changes as well as new pain, weakness or numbness in the upper or lower extremity. Should they notice these changes, they are instructed to call our office immediately or report directly to the nearest Emergency Department if no answer or if after posted office hours. COMPLICATIONS: None COMMENTS: None CONTRAST WASTED: 28.5mL Omnipaque 300. Complications No immediate complications Condition Stable Disposition Same day [facility] Billing Surgery - Charge Forward: Surgery Billing
--- OUTSIDE RECORDS SUMMARY | 2024-08-06 07:54 | XMS_ITS | Encounter Summary ---
Author Organization [facility] Address [address] [place] [address] Phone Care Team Providers Care Fusing Line Inspector Name Role Phone Jorge Luis Hill MD Primary Care Provider [phone] Encounter Details Date Type Department Care Team (Late st Contact Info) Description 05/03/2022 Telephone [facility] [address] [address] [address] [place] [address] Janette Holcomb RN Social History Tobacco Use [...] often do you attend chur ch or jehovah's witness services? Never 12/22/2021 Do you belong to any clubs o r organizations such as episcopal groups, unions, fraternal or athletic groups, or [...] place to sleep or slept in a care home (including now)? No 12/22/2021 Comments No Sex and Gender Information Value Date Recorded Sex Assigned at Not on file Legal Sex Female 1:34 AM BIOMECHANICAL ENGINEER Gender Identity Not on file Sexual Orientation Not on file documented as of this encounter Plan of Treatment Not on file documented as of this encounter Visit Diagnoses Not on filedocumented in this encounter Additional Health Concerns Infection Onset Date Last Indicated Resolved Time MDR gram neg/ESBL 2022 2022 documented as of this encounter Care Teams Fusing Line Inspector Relationship Specialty Start Date End Date Jorge Luis Hill MD PCP - General 04/30/18 documented as of this encounter
--- OUTSIDE RECORDS SUMMARY | 2024-08-06 07:54 | XMS_ITS | Clinical Summary ---
Author Organization [facility] Address [address] [place] [address] Phone Care Team Providers Care Professional Advisor Name Role Phone Jorge Luis Hill MD Primary Care Provider [phone] Allergies No known active allergies Medications aspirin 81 mg enteric coated tablet Take 1 tablet (81 mg total) by mouth every morning Active cloNIDine (CATAPRES) 0.1 mg tablet Take 1 tablet (0.1 mg total) by mouth every 12 hours 017 Active losartan (COZAAR) 50 mg tablet Take 1 tablet (50 mg total) by mouth every morning 018 Active montelukast (SINGULAIR) 10 mg tablet Take 1 tablet (10 mg total) by mouth nightly Active QUEtiapine (SEROquel) 50 mg tablet Take 1 tablet (50 mg total) by mouth nightly Active rOPINIRole (REQUIP) 0.25 mg tablet Take 1 tablet (0.25 mg total) by mouth nightly Active cholecalciferol (VITAMIN D-3) 57232 unit tablet Take 1 tablet (50,000 Units total) by mouth once a week Active dicyclomine (BENTYL) 10 mg capsule Take 1 capsule (10 mg total) by mouth 4 (four) times a day Active furosemide (LASIX) 40 mg tablet Active naloxone (NARCAN) 4 mg/actuation spray,non-aeros ol 01/20/2 022 Active diltiaZEM CD (CARDIZEM CD) 360 mg 24 hr capsule Take 1 capsule (360 mg total) by mouth daily Active escitalopram (LEXAPRO) 20 mg tablet Take 1 tablet (20 mg total) by mouth daily Active metoclopramide (REGLAN) 10 mg tabletIndicatio ns:nausea preventative Take 1 tablet (10 mg total) by mouth 3 (three) times a day before meals Active amitriptyline (ELAVIL) 50 mg tablet Active omeprazole (PriLOSEC) 40 mg capsule Active rOPINIRole (REQUIP) 0.5 mg tablet TAKE 1 TABLET BY MOUTH EVERY NIGHT AT BEDTIME WITH 1 MG TABLET *EMERGENCY REFILL* Active albuterol HFA (PROVENTIL HFA,VENTOLIN HFA,PROAIR HFA) 90 mcg/actuation inhaler Inhale 1 puff every 4 (four) hours as needed for wheezing 1 each Active tiotropium bromide (SPIRIVA RESPIMAT) 2.5 mcg/actuation inhaler Inhale 2 puffs daily 1 each Active Additional Information Patient not taking.Reported on 06/13/2024 loratadine (CLARITIN) 10 mg tablet Take 1 tablet (10 mg total) by mouth daily 30 tablet Active Symbicort 160-4.5 mcg/actuation inhaler INHALE TWO (2) PUFFS BY MOUTH TWICE DAILY. RINSE MOUTH OUT WITH WATER AFTER EACH USE. DO NOT SWALLOW 10.2 g 10 Active Farxiga 10 mg tabletIndicatio ns:Type 2 diabetes mellitus with hyperglycemia, without long-term current use of insulin (HCC) TAKE 1 TABLET BY MOUTH DAILY 30 tablet Active fluticasone propionate (FLONASE) 50 mcg/actuation nasal spray Active ibuprofen (ADVIL,MOTRIN) 600 mg tablet Active Linzess 290 mcg capsule Active pantoprazole DR (PROTONIX) 40 mg EC tablet pantoprazole 40 mg tablet,delayed release (DR/EC) Active tiotropium bromide (SPIRIVA RESPIMAT) 2.5 mcg/actuation inhaler Inhale 2 puffs daily 1 each Active montelukast (SINGULAIR) 10 mg tablet Take 1 tablet (10 mg total) by mouth nightly 30 tablet 025 2025 Active albuterol 2.5 mg /3 mL (0.083 %) nebulizer solution Take 3 mL (2.5 mg total) by nebulization every 6 (six) hours as needed for wheezing or shortness of breath 360 mL 025 Active metFORMIN (GLUCOPHAGE) 500 mg tabletIndicatio ns:Type 2 diabetes mellitus with hyperglycemia, without long-term current use of insulin (HCC) TAKE 1 TABLET BY MOUTH TWICE DAILY *PATIENT MUST CONTACT OFFICE FOR FURTHER REFILLS* 90 tablet 025 Active gabapentin (NEURONTIN) 300 mg capsuleIndicati ons:Type 2 diabetes mellitus with hyperglycemia, without long-term current use of insulin (HCC) TAKE 1 CAPSULE BY MOUTH 3 TIMES DAILY 90 capsule 025 Active gabapentin (NEURONTIN) 300 mg capsule Take 1 capsule (300 mg total) by mouth 3 (three) times a day 90 capsule 024 2024 Discontinued sulfamethoxazol e-trimethoprim (BACTRIM DS) 800-160 mg per tablet TAKE ONE (1) TABLET BY MOUTH TWICE DAILY 60 tablet 10 024 2024 Discontinued(T herapy completed) metFORMIN (GLUCOPHAGE) 500 mg tabletIndicatio ns:Type 2 diabetes mellitus with hyperglycemia, without long-term current use of insulin (HCC) TAKE 1 TABLET BY MOUTH TWICE DAILY WITH MEALS *PATIENT MUST CONTACT OFFICE FOR FURTHER REFILLS* 90 tablet 025 2024 Discontinued Active Problems Problem Noted Date Diagnosed Date Cigarette nicotine dependence without complicati on 06/14/2024 Assessment & Plan (06/14/2024 9:22 AM CDT): She continues to smoke about 4-5 cigarettes per day. - Smoking cessation counseling and techniques reviewed at length - Avoid triggers and use distraction techniques - Information given regarding [place] Tobacco Quit line: [phone]-GJYM-YES for free services - 5 minutes spent [...] echocardiogram, Assessment & Plan (02/13/2024 11:58 AM HOME THERAPY TEACHER): Continue supplemental oxygen for saturations 90% I have advised her to get a home pulse oximeter and bring it to her next visit for comparison She has a visit with our molecular geneticist upcoming and will likely have an echocardiogram. [...] (01/03/2022): Added automatically from request for surgery [id number] Smoking 12/14/2021 Assessment & Plan (12/19/2021 11:55 AM CDT): Recommend cessation. Pt reports she has cut down to 1/2 ppd but hasn't smoked since admission. She does not want a nicotine patch. 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 -She has completed 2.5 years of suppression. She would like to stop today. She understands the risks of stopping antibiotics. -We will repeat CBC/CMP today -We will have her repeat labs in a week due to decreased kidney function - Discussed with patient the rational for treatment, culture results, risk of recurrent infection, signs/symptoms of recurrent infection, and to contact ID clinic with any questions or concerns. Assessment & Plan (07/21/2023 10:59 AM CDT): [...] months Assessment & Plan (01/14/2022 11:03 AM HOME THERAPY TEACHER): - Pt has completed 4 weeks of [...] tract. If no surgical plan, Resume diet. Legal Service Specialist re supplements. Pain control with prn tylenol [...] care Assessment & Plan (02/13/2024 11:59 AM HOME THERAPY TEACHER): Continue Symbicort twice daily Continue Spiriva twice [...] 12/13/2021 Assessment & Plan (02/13/2024 11:57 AM HOME THERAPY TEACHER): Continue PAP with all sleep She is aware of the risks of uncorrected sleep apnea Assessment & Plan (12/21/2021 12:03 PM CDT): Exacerbated by BMI 42. Alert, oriented. Outpatient PSG Assessment & Plan (12/13/2021 11:24 AM CDT): Exacerbated by BMI 42. Alert, oriented. Morbid obesity with BMI of 40.0-44.9, adult 11/27 Assessment & Plan (12/14/2021 3:10 PM CDT): BMI 42.07, 104.3kg this admit. Legal Service Specialist to see exterminator helper termite weight loss management goals with PCP, hx DM, HTN, ELIOT & may benefit from bariatric evaluation. Assessment & Plan (12/13/2021 10:25 AM CDT): BMI 42.07, 104.3kg this admit. Legal Service Specialist to see exterminator helper termite weight loss management goals with PCP, hx DM, HTN, ELIOT & may benefit from bariatric evaluation. Pancreatic cyst 01/10/2020 Overview (01/10/2020): Added automatically from request for surgery [id number] Resolved Problems Problem Noted Date Diagnosed Date Resolved Date Nicotine dependence, cigarettes, in remission 02/13/20 24 06/14/2024 Assessment & Plan (02/13/2024 11:57 AM HOME THERAPY TEACHER): Quit in November of 2023 She is due for annual CT chest in February of 2023 Encounters Date Type Department Care Team Description 07/24/2024 3:38 PM CDT - 07/24/2024 11:59 PM CDT Hospital Encounter [facility] [address] [place] [address] Discharge Disposition: Discharge to home or self care 07/24/2024 3:20 PM CDT Office Visit [facility] Infectious Diseases [address] [place] [address] Cadence Cavazos NP Osteonecrosis of jaw (HCC) (Primary Dx); Acute kidney injury 06/13/2024 3:30 PM CDT Office Visit [facility] Pulmonary at [address] [place] [address] Jany Hernandez NP Chronic respiratory failure with hypoxia, on home O2 therapy (HCC) (Primary Dx); Centrilobular emphysema (HCC); Pulmonary nodules; Cigarette nicotine dependence without complication 05/22/2024 2:00 PM CDT - 05/22/2024 11:59 PM CDT Hospital Encounter [facility] Di[facility] [place] [address] Lumbar pain Discharge Disposition: Discharge to home or self care 05/22/2024 2:00 PM CDT Office Visit [facility] Orthopedics and Sports Medicine [address] [place] [address] [address] [place] [id number] Anneliese Byers, BEVERLY Chronic right-sided low back pain with right-sided [...] HYSTERECTOMY W/ BILATERAL SALPINGOOPHORECTOMY 02/27/1995 - 02/27/1996 SALVAGE LABORER SHUNT INSERTION 02/27/2010 - 02/26/2011 COLONOSCOPY BRAIN [...] disease Father Elsa Hines Hypertension Father Elsa carey Donny Stroke Father Elsa Hines Hypertension Maternal Grandmother [...] Sreekanth nascimento Alive Mother Mother's Sister Faviola marlyn vincent Son Alive Social History Tobacco Use Types [...] often do you attend chur ch or orthodox services? Never 12/22/2021 Do you belong to [...] on file Legal Sex Female 1:34 AM HOME THERAPY TEACHER Gender Identity Not on file Sexual Orientation Not on file Obstetrics History Last Filed Vital Signs Vital Sign Reading Time Taken Comments Blood Pressure 90/58 07/24/2024 3:12 PM CDT Pulse 85 07/24/2024 3:12 PM CDT Temperature 36.9 C (98.5 F) 07/24/2024 3:12 PM CDT Respiratory Rate 18 02/12/2024 2:42 PM HOME THERAPY TEACHER Oxygen Saturation 97% 07/24/2024 3:12 PM CDT Inhaled Oxygen Concentration - - Weight 86 kg (189 lb 9.6 oz) 06/13/2024 3:22 PM CDT Height 162 cm (5' 3.78) 07/24/2024 3:12 PM CDT Body Mass Index 32.54 06/13/2024 [...] 02/06/2024 08/07/2023, 03/31, 12/13/2021, Additional history exists Lung Cancer Screening 09/21/2024 03/25/2024 Influenza Vaccine (Season Ended) 2024 12/28/2022, 01/10/2022, 03/05/2021 eGFR 07/24/2025 07/24/2024, 0607/2023, 07/19/2023, Additional history exists DTaP/Tdap/Td Vaccine (2 - Td or Tdap) 12/16/2029 12/17/2019 Hepatitis C Screening Completed 12/15/2021 Medical Devices Implanted Type Area Steam Plant Records Clerk Device Identifier Shelf Expiration Date Model / Serial / Lot Shunt Implanted:Qty: 2 Shunt Brain [employer] C[employer]afire Mobile Microvascular 3.5mm Ring Pin Protective Cover Jaw Assembly Latex Free [id number] - [id number] Implanted:Qty: 1 on 2022 by Ricci Shelton MD at [facility] Mandible Sanivations [employer] [id number] 04/12/2026 [id number] / / [id number] Hindman Craniomaxillofaci al 2mm Primary Reconstruction Customize Mandible Bebeto Plate Bone [id number] - [id number] Implanted:Qty: 1 on 2022 by Ricci Shelton MD at [facility] Mandible Álvaro Craniomaxillofacial [id number] / / Hindman Craniomaxillofaci al Leibinger [place] 2 2.3mm 6mm Lock Cross Pin Maxillofacial [id number] - [id number] Implanted:Qty: 1 on 2022 by Ricci Shelton MD at [facility] Mandible Álvaro Craniomaxillofacial [id number] / / Hindman Craniomaxillofaci al Leibinger [place] 2 2.3mm 8mm Lock Cross Pin Maxillofacial [id number] - [id number] Implanted:Qty: 2 on 2022 by Ricci Shelton MD at [facility] Mandible Hindman Craniomaxillofacial [id number] / / Álvaro Craniomaxillofaci al Leibinger [place] 2 2.3mm 12mm Lock Cross Pin Maxillofacial [id number] - [id number] Implanted:Qty: 3 on 2022 by Ricci Shelton MD at [facility] Mandible Álvaro Craniomaxillofacial [id number] / / Álvaro Craniomaxillofaci al Leibinger [place] 2 2mm 6mm Self Tap Cross Pin Maxillofacial 50 - [id number] Implanted:Qty: 4 on 2022 by Ricci Shelton MD at [facility] Mandible Hindman Craniomaxillofacial 50 / / Hindman Craniomaxillofaci al Leibinger [place] 2 2mm 6mm Lock Cross Pin Maxillofacial Screw 50 - [id number] Implanted:Qty: 1 on 2022 by Ricci Shelton MD at [facility] Mandible Hindman Craniomaxillofacial 50 / / Explanted Type Area Steam Plant Records Clerk Device Identifier Shelf Expiration Date Model / Serial / Lot Hindman Craniomaxillofaci al Leibinger [place] 2 2mm 8mm Self Tap Cross Pin Maxillofacial 50 - [id number] Explanted:Qty: 4 on 2022 at [facility] Mandible Hindman Craniomaxillofacial 50 / / Hindman Craniomaxillofaci al Leibinger [place] 2 2.3mm 8mm Self Tap Cross Pin Maxillofacial [id number] - [id number] Explanted:Qty: 1 on 2022 at [facility] Mandible Hindman Craniomaxillofacial [id number] / / [employer] Probe Doppler 17.4cm Standard Cuff Implantable 20mhz Latex Free Sterile Microvascular Anastomoses Carmen [id number] - [id number] Implanted:Qty: 1 on 2022 by Ricci Shelton MD at [facility] Explanted:Qty: 1 on 02/14/2022 by Marie Parr PA Right: Neck [employer] [id number] 10/27/2024 [id number] / / [id number] Procedures Procedure Name Priority Date/Time Associated Diagnosis Comments EGFR Routine 07/24/2024 3:38 PM CDT Osteonecrosis of jaw (HCC) DIFFERENTIAL AUTO Routine 07/24/2024 3:3 8 PM CDT Osteonecrosis of jaw (HCC) GLUCOSE, RANDOM (OUTREACH) Routine 07/24/2024 3:38 PM CDT Osteonecrosis of jaw (HCC) COMPREHENSIVE METABOLIC PANEL WITHOUT GLUCOSE (OUTREACH) Routine 07/24/2024 3:38 PM CDT Osteonecrosis of jaw (HCC) CRP (ACUTE PHASE) Routine 07/24/2024 3:3 8 PM CDT Osteonecrosis of jaw (HCC) COMPREHENSIVE METABOLIC PANEL (OUTREACH) Routine 07/24/2024 3:38 PM CDT Osteonecrosis of jaw (HCC) CBC WITH AUTO DIFFERENTIAL Routine 07/24/2024 3:38 PM CDT Osteonecrosis of jaw (HCC) ERYTHROCYTE SEDIMENTATION RATE Routine 07/24/2024 3:38 PM CDT Osteonecrosis of jaw (HCC) XR SPINE LUMBAR 2 OR 3 VIEWS Schedule Routine, Read Routine (OP Routine) 05/22/2024 2:05 PM CDT Lumbar pain CT LUNG CANCER SCREENING Schedule Routine, Read Routine (OP Routine) 03/25/2024 12:46 PM HOME THERAPY TEACHER Nicotine dependence, cigarettes, uncomplicated POCT HEMOGLOBIN A1C Routine 08/07/2023 3 :17 PM CDT Type 2 diabetes mellitus with hyperglycemia, without long-term current use of insulin (HCC) LIPID PANEL STAT 02/15/2022 2:00 PM HOME THERAPY TEACHER HEPATITIS PANEL, ACUTE Routine 12/15/2021 11:19 PM CDT from Last 3 Months or Most Recently Relevant to Health Maintenance Results * Glucose, random (Outreach) (07/24/2024 3:38 PM CDT) Glucose 85 70 - 199 mg/dL Comment: Interpretive Data Fasting glucose >/= 126 mg/dl is diagnostic for diabetes. Fasting is defined as no caloric intake for at least 8 hours. Fasting glucose between 100 mg/dl to 125 mg/dl is diagnostic of prediabetes. In a patient with classic symptoms of hyperglycemia or hyperglycemic crisis, a random glucose >/= 200 mg/dl is diagnostic for diabetes. In the absence of unequivocal hyperglycemia, results should be confirmed by repeat testing. The classification and Diagnosis of Diabetes Diabetes Care 2021; 46: S19-S40. Current interpretive data was last revised 2022. Blood 07/24/2024 3:38 PM CDT 07/24/2024 6:03 PM CDT Cadence Cavazos NP LAB BLOOD ORDERABLES Final Result [facility] [place] [address] * (ABNORMAL) eGFR (07/24/2024 3:38 PM CDT) eGFR 26(L) >=60 mL/min/1. 73 m2 Comment: Interpretive Data [...] interpretive data was last reviewed 2020. Blood 07/24/2024 3:38 PM CDT 07/24/2024 6:07 PM CDT Cadence Cavazos SUPERVISOR ABATTOIR LAB BLOOD ORDERABLES Final Result [facility] Department [place] [address] * Differential, auto (07/24/2024 3:38 PM CDT) Neutrophil abs 5.59 1.50 - 6.50 K/cumm Imm gran abs 0.03 0.00 - 0.10 K/cumm [facility] Lymphocyte abs 1.23 0.80 - 3.30 K/cumm [facility] Monocyte abs 0.58 0.20 - 0.80 K/cumm [facility] Eosinophil abs 0.07 0.00 - 0.50 K/cumm [facility] Basophil abs 0.04 0.00 - 0.10 K/cumm [facility] Neutrophil pct 74.2 % [facility] Comment: Interpretive Data Percent cell count reference ranges are not reported, since discordance with absolute values may lead to misinterpretation of CBC data. Current Interpretive Data was last revised on 2017. Imm gran pct 0.4 % [facility] Comment: Interpretive Data Percent cell count reference ranges are not reported, since discordance with absolute values may lead to misinterpretation of CBC data. Current Interpretive Data was last revised on 2017. Lymphocyte pct 16.3 % [facility] Comment: Interpretive Data Percent cell count reference ranges are not reported, since discordance with absolute values may lead to misinterpretation of CBC data. Current Interpretive Data was last revised on 2017. Monocyte pct 7.7 % [facility] Comment: Interpretive Data Percent cell count reference ranges are not reported, since discordance with absolute values may lead to misinterpretation of CBC data. Current Interpretive Data was last revised on 2017. Eosinophil pct 0.9 % [facility] Comment: Interpretive Data Percent cell count reference ranges are not reported, since discordance with absolute values may lead to misinterpretation of CBC data. Current Interpretive Data was last revised on 2017. Basophil pct 0.5 % [facility] Comment: Interpretive Data Percent cell count reference ranges are not reported, since discordance with absolute values may lead to misinterpretation of CBC data. Current Interpretive Data was last revised on 2017. Blood 07/24/2024 3:38 PM CDT 07/24/2024 6:03 PM CDT Cadence Cavazos SUPERVISOR ABATTOIR LAB BLOOD ORDERABLES Final Result [facility] Department [place] [address] * (ABNORMAL) Comprehensive metabolic panel, without glucose (Outreach) (07/24/2024 3:38 PM CDT) Sodium 133(L) 135 - 145 mmol/L Potassium, pl 4.1 3.3 - 4.9 mmol/L [facility] Chloride 90(L) 97 - 110 mmol/L [facility] CO2 27 22 - 32 mmol/L [facility] Anion gap 16(H) 2 - 15 mmol/L [facility] BUN 21 6 - 25 mg/dL [facility] Creatinine 2.12(H) 0.60 - 1.10 mg/dL [facility] Calcium 9.5 8.5 - 10.3 mg/dL [facility] Protein, pl 7.2 6.5 - 8.5 g/dL [facility] Albumin 4.5 3.5 - 5.0 g/dL [facility] Bilirubin, total 0.2 0.1 - 1.2 mg/dL [facility] Alk phos 83 40 - 130 Units/L [facility] AST 26 10 - 45 Units/L [facility] ALT 10 7 - 45 Units/L [facility] Blood 07/24/2024 3:38 PM CDT 07/24/2024 6:03 PM CDT Cadence Cavazos NP LAB BLOOD ORDERABLES Final Result Performing Organization Address [facility]/ZIP Co de Phone Number [facility] Department [place] [employer] [place] [address] * (ABNORMAL) CBC with auto differential (07/24/2024 3:38 PM CDT) Pathologist [facility] WBC 7.54 3.80 - 9.90 K/cumm Hgb 12.1 11.9 - 15.5 g/dL [facility] Hct 36.8 35.6 - 45.5 % [facility] Plt 266 150 - 400 K/cumm [facility] MPV 11.0 9.1 - 12.3 fL [facility] RBC 3.36(L) 3.90 - 5.20 M/cumm [facility] MCV 109.5(H) 81.3 - 96.4 fL [facility] MCH 36.0(H) 27.1 - 33.3 pg [facility] MCHC 32.9 32.3 - 35.7 g/dL [facility] RDW CV 14.3 11.1 - 14.9 % [facility] RDW SD 58.0(H) 35.7 - 48.1 fL [facility] NRBC abs 0.00 0.00 - 0.01 K/cumm [facility] Blood 07/24/2024 3:38 PM CDT 07/24/2024 6:03 PM CDT us Cadence Cavazos NP LAB BLOOD ORDERABLES Final Result Performing Organization Address [facility]/ZIP Co de Phone Number [facility] [place] [address] * Erythrocyte sedimentation rate (07/24/2024 3:38 PM CDT) Erythrocyte sedimentation rate 18 1 - 30 mm/hr Blood 07/24/2024 3:38 PM CDT 07/24/2024 6:03 PM CDT Cadence Cavazos NP LAB BLOOD ORDERABLES Final Result Performing Organization Address [facility] Co de Phone Number [facility] Department [place] [employer] [place] [address] * (ABNORMAL) CRP (acute phase) (07/24/2024 3:38 PM CDT) Pathologist [facility] CRP 10.1(H) <=10.0 mg/L Blood 07/24/2024 3:38 PM CDT 07/24/2024 6:03 PM CDT Cadence Cavazos NP LAB BLOOD ORDERABLES Final Result Performing Organization Address [facility] Phone Number [facility] [employer] [place] [address] * XR Spine Lumbar 2 or 3 [...] by You Hills M.D. T: Report ID: [id number] Reading Location: [id number] Procedure Note You Hills MD - 05/30/2024 [...] by You Hills M.D. T: Report ID: [id number] Reading Location: [id number] Anneliese Byers SUPERVISOR ABATTOIR IMG XR PROCEDURES Final Res ult * CT Lung Cancer Screening (03/25/2024 12:46 PM HOME THERAPY TEACHER) Anatomical Region Laterality Modality Chest N/A Computed Tomogra phy 03/26/2024 9:54 AM HOME THERAPY TEACHER Narrative 03/26/2024 10:03 AM HOME THERAPY TEACHER EXAM DESCRIPTION: CT LUNG CANCER SCREENING REASON [...] Almita Miller D.O. PS: PS Report ID: [id number] Reading Location: [place] [address] Procedure Note Almita Miller, DO - 03/26/2024 [...] Almita Miller D.O. PS: PS Report ID: [id number] Reading Location: [id number] Ethan Leung MD IMG CT PROCEDURES Final Result * (ABNORMAL) POCT hemoglobin A1c (08/07/2023 3:17 PM CDT) Pathologist [facility] Hemoglobin A1C, POC 5.9 % Capillary blood 08/07/2023 3 :17 PM CDT Briana Santana MD POINT OF CARE TEST ORDERABLES Fi nal Result * (ABNORMAL) Lipid panel (02/15/2022 2:00 PM HOME THERAPY TEACHER) Cholesterol 161 30 - 199 mg/dL [facility] Comment: Interpretive Data Ages < or [...] revised on 2017. Triglycerides 253(H) <=149 mg/dL [facility] Comment: Interpretive Data Ages < or = [...] revised on 2017. HDL 42 >=40 mg/dL [facility] Comment: Interpretive Data Ages < or = [...] on 2017. LDL, calculated 68 <=129 mg/dL [facility] Comment: Interpretive Data Ages < or = [...] revised on 2017. Non-HDL Cholesterol 119 mg/dL [facility] Comment: Interpretive Data Ages < or = [...] last revised on 2017. Chol/HDL ratio 4 [facility] Blood 02/15/2022 2:00 PM HOME THERAPY TEACHER 02/15/2022 5:52 PM HOME THERAPY TEACHER us Neri Loco MD LAB BLOOD ORDERABLES Fi nal Result [facility] Department [place] [address] * Hepatitis panel, acute (12/15/2021 11:19 PM CDT) Hep A IgM Nonreactive Nonreactive Comment: Interpretive Data: If Hep A IgM Ab is reported as Equivocal, a new sample should be drawn in two weeks for testing. Current interpretive data was last revised on 19. Hep B core IgM Nonreactive Nonreactive [facility] Comment: Interpretive Data If HepB Core IgM Ab is reported as Equivocal, a new sample should be drawn in two weeks for testing. Current interpretive data was last revised on 19. Hep C Ab Nonreactive Nonreactive [facility] Comment:Antibodies to HCV no t detected. Does NOT exclude the possibility of recent exposure to HCV. HepBsAg Nonreactive Nonreactive [facility] Blood 12/15/2021 11:1 9 PM CDT 12/16/2021 12:30 AM CDT us Orly Fine MD LAB MICROBIOLOGY - GENERAL O RDERABLES Edited Result - Final [facility] Department of Laboratories [place], [place] [id number] from Last 3 Months or Most Recently Relevant to Health Maintenance Additional Health Concerns Infection Onset Date Last Indicated MDR gram neg/ESBL 2022 2022 Insurance [facility] Advance Directives For more information, please contact: [phone] * Full Code (Latest Code Status on File) Date Activated Date Inactivated Comments 04/26/2022 9:48 PM 05/03/2022 6:39 PM * Full Code Date Activated Date Inactivated Comments 2022 9:27 PM 02/14/2022 9:56 PM * Full Code Date Activated Date Inactivated Comments 12/13/2021 5:40 PM 12/21/2021 6:14 PM * Full Code Date Activated Date Inactivated Comments 01/22/2020 1:18 PM 01/22/2020 10:15 PM Care Teams Professional Advisor Relationship Specialty Start Date End Date Jorge Luis Hill MD PCP - General 04/30/18
--- OUTSIDE RECORDS SUMMARY | 2024-08-06 07:54 | XMS_ITS | Referral Summary ---
Author Organization [facility] Address [address] [place] [address] Phone Care Team Providers Care Community Arts Worker Name Role Phone Jorge Luis Hill MD Primary Care Provider [phone] Encounters Date Type Department Care Team Description 07/24/2024 3:38 PM CDT - 07/24/2024 11:59 PM CDT Hospital Encounter [facility] [address] [place] [address] Discharge Disposition: Discharge to home or self care 07/24/2024 3:20 PM CDT Office Visit [facility] Infectious Diseases [address] [place] [address] Cadence Cavazos, BEVERLY Osteonecrosis of jaw (HCC) (Primary Dx); Acute kidney injury 06/13/2024 3:30 PM CDT Office Visit [facility] Pulmonary at [address] [place] [address] Jany Hernandez NP Chronic respiratory failure with hypoxia, on home O2 therapy (HCC) (Primary Dx); Centrilobular emphysema (HCC); Pulmonary nodules; Cigarette nicotine dependence without complication 05/22/2024 2:00 PM CDT - 05/22/2024 11:59 PM CDT Hospital Encounter [facility] Di[facility] Imaging [address] [place] [address] Lumbar pain Discharge Disposition: Discharge to home or self care 05/22/2024 2:00 PM CDT Office Visit [facility] Orthopedics and Sports Medicine [facility] [address] [place] [phone] Anneliese Byers NP Chronic right-sided low back [...] mg total) by mouth every 12 hours Active losartan (COZAAR) 50 mg tablet Take 1 tablet (50 mg total) by mouth every morning Active montelukast (SINGULAIR) 10 mg tablet Take 1 tablet (10 mg total) by mouth nightly Active QUEtiapine (SEROquel) 50 mg tablet Take 1 tablet (50 mg total) by mouth nightly Active rOPINIRole (REQUIP) 0.25 mg tablet Take 1 tablet (0.25 mg total) by mouth nightly Active cholecalciferol (VITAMIN D-3) 76761 unit tablet Take 1 tablet (50,000 Units total) by mouth once a week Active dicyclomine (BENTYL) 10 mg capsule Take 1 capsule (10 mg total) by mouth 4 (four) times a day Active furosemide (LASIX) 40 mg tablet Active naloxone (NARCAN) 4 mg/actuation spray,non-aeros ol Active diltiaZEM CD (CARDIZEM CD) 360 mg [...] EACH USE. DO NOT SWALLOW 10.2 g Active Farxiga 10 mg tabletIndicatio ns:Type 2 [...] mg total) by mouth nightly 30 tablet 2025 Active albuterol 2.5 mg /3 mL (0.083 %) nebulizer solution Take 3 mL (2.5 mg total) by nebulization every 6 (six) hours as needed for wheezing or shortness of breath 360 mL 11 025 Active metFORMIN (GLUCOPHAGE) 500 mg tabletIndicatio ns:Type 2 diabetes mellitus with hyperglycemia, without long-term current use of insulin (HCC) TAKE 1 TABLET BY MOUTH TWICE DAILY *PATIENT MUST CONTACT OFFICE FOR FURTHER REFILLS* 90 tablet 11 025 Active gabapentin (NEURONTIN) 300 mg capsuleIndicati ons:Type 2 diabetes mellitus with hyperglycemia, without long-term current use of insulin (HCC) TAKE 1 CAPSULE BY MOUTH 3 TIMES DAILY 90 capsule 11 025 Active gabapentin (NEURONTIN) 300 mg capsule [...] use distraction techniques - Information given regarding [place] Tobacco Quit line: [id number] for free services - 5 minutes spent [...] echocardiogram, Assessment & Plan (02/13/2024 11:58 AM FINISHING TRIMMER): Continue supplemental oxygen for saturations 90% I have advised her to get a home pulse oximeter and bring it to her next visit for comparison She has a visit with our complementary health therapists upcoming and will likely have an echocardiogram. [...] (01/03/2022): Added automatically from request for surgery [id number] Smoking 12/14/2021 Assessment & Plan (12/19/2021 11:55 [...] months Assessment & Plan (01/14/2022 11:03 AM FINISHING TRIMMER): - Pt has completed 4 weeks of [...] Broad spectrum IV abx, started IV Unasyn (); antifungal micafungin (12/19-). Plastics consulted in ED. [...] Broad spectrum IV abx, started IV Unasyn (10/17-c), monitor s/s infection & renal function. Plastics & OFMS consulted in ED, no notes yet. Will d/w plastics, anticipate pursuing ENT to evaluate management of osteonecrosis & sinus tract. If no surgical plan, Resume diet. Internal Communications Writer re supplements. Pain control with prn tylenol [...] care Assessment & Plan (02/13/2024 11:59 AM FINISHING TRIMMER): Continue Symbicort twice daily Continue Spiriva twice [...] 12/13/2021 Assessment & Plan (02/13/2024 11:57 AM FINISHING TRIMMER): Continue PAP with all sleep She is aware of the risks of uncorrected sleep apnea Assessment & Plan (12/21/2021 12:03 PM CDT): Exacerbated by BMI 42. Alert, oriented. Outpatient PSG Assessment & Plan (12/13/2021 11:24 AM CDT): Exacerbated by BMI 42. Alert, oriented. Morbid obesity with BMI of 40.0-44.9, adult 11/27 Assessment & Plan (12/14/2021 3:10 PM CDT): BMI 42.07, 104.3kg this admit. 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 Assessment & Plan (12/13/2021 10:25 AM CDT): BMI 42.07, 104.3kg this admit. 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 Pancreatic cyst 01/10/2020 Overview (01/10/2020): Added automatically from request for surgery [id number] Resolved Problems Problem Noted Date Diagnosed Date Resolved Date Nicotine dependence, cigarettes, in remission 02/13/20 24 06/14/2024 Assessment & Plan (02/13/2024 11:57 AM FINISHING TRIMMER): Quit in November of 2023 She is [...] often do you attend chur ch or synagogue services? Never 12/22/2021 Do you belong to any clubs o r organizations such as baptist groups, unions, fraternal or athletic groups, or [...] a nursing home (including now)? No 12/22/2021 Personal Safety Answer Date Recorded Getting School Help Needed Denies 02/11 Comments No Sex and Gender Information Value Date Recorded Sex Assigned at Not on file Legal Sex Female 1:34 AM FINISHING TRIMMER Gender Identity Not on file Sexual Orientation Not on file Last Filed Vital Signs Vital Sign Reading Time Taken Comments Blood Pressure 90/58 07/24/2024 3:12 PM CDT Pulse 85 07/24/2024 3:12 PM CDT Temperature 36.9 C (98.5 F) 07/24/2024 3:12 PM CDT Respiratory Rate 18 02/12/2024 2:42 PM FINISHING TRIMMER Oxygen Saturation 97% 07/24/2024 3:12 PM CDT Inhaled Oxygen Concentration - - Weight 86 kg (189 lb 9.6 oz) 06/13/2024 3:22 PM CDT Height 162 cm (5' 3.78) 07/24/2024 3:12 PM CDT Body Mass Index 32.54 06/13/2024 3:22 PM CDT Plan of Treatment Not on file Medical Devices Implanted Type Area Host Hostess Device Identifier Shelf Expiration Date Model / Serial / Lot Shunt Implanted:Qty: 2 Shunt Brain [employer] Allian Bolivar Microvascular 3.5mm Ring Pin Protective Cover Jaw Assembly Latex Free [id number] - [id number] Implanted:Qty: 1 on 2022 by Ricci Shelton MD at [facility] Mandible [employer] Norrisian [id number] 04/12/2026 [id number] / / [id number] [place] Craniomaxillofaci al 2mm Primary Reconstruction Customize Mandible Bebeto Plate Bone [id number] - [id number] Implanted:Qty: 1 on 2022 by Ricci Shelton MD at [facility] Mandible Álvaro Craniomaxillofacial [id number] / / Álvaro Craniomaxillofaci al Leibinger [place] 2 2.3mm 6mm Lock Cross Pin Maxillofacial [id number] - [id number] Implanted:Qty: 1 on 2022 by Ricci Shelton MD at [facility] Mandible [place] Craniomaxillofacial [id number] / / [place] Craniomaxillofaci al Leibinger [place] 2 2.3mm 8mm Lock Cross Pin Maxillofacial [id number] - [id number] Implanted:Qty: 2 on 2022 by Ricci Shelton MD at [facility] Mandible [place] Craniomaxillofacial [id number] / / [place] Craniomaxillofaci al Leibinger [place] 2 2.3mm 12mm Lock Cross Pin Maxillofacial [id number] - [id number] Implanted:Qty: 3 on 2022 by Ricci Shelton MD at [facility] Mandible Álvaro Craniomaxillofacial [id number] / / [place] Craniomaxillofaci al Leibinger [place] 2 2mm 6mm Self Tap Cross Pin Maxillofacial 50 - [id number] Implanted:Qty: 4 on 2022 by Ricci Shelton MD at [facility] Mandible Álvaro Craniomaxillofacial 50 / / Álvaro Craniomaxillofaci al Leibinger [place] 2 2mm 6mm Lock Cross Pin Maxillofacial Screw 50 - [id number] Implanted:Qty: 1 on 2022 by Ricci Shelton MD at [facility] Mandible [place] Craniomaxillofacial 50 / / Explanted Type Area Host Hostess Device Identifier Shelf Expiration Date Model / Serial / Lot [place] Craniomaxillofaci al Leibinger [place] 2 2mm 8mm Self Tap Cross Pin Maxillofacial 50 - [id number] Explanted:Qty: 4 on 2022 at [facility] Mandible Álvaro Craniomaxillofacial 50 / / [place] Craniomaxillofaci al Leibinger [place] 2 2.3mm 8mm Self Tap Cross Pin Maxillofacial [id number] - [id number] Explanted:Qty: 1 on 2022 at [facility] Mandible Álvaro Craniomaxillofacial [id number] / / [employer] Probe Doppler 17.4cm Standard Cuff Implantable 20mhz Latex Free Sterile Microvascular Anastomoses Corazon [id number] - [id number] Implanted:Qty: 1 on 2022 by Ricci Shelton MD at [facility] Explanted:Qty: 1 on 02/14/2022 by Marie Parr PA Right: Neck [employer] [id number] 10/27/2024 [id number] / / [id number] Procedures Procedure Name Priority Date/Time Associated Diagnosis [...] Read Routine (OP Routine) 03/25/2024 12:46 PM FINISHING TRIMMER Nicotine dependence, cigarettes, uncomplicated POCT HEMOGLOBIN A1C Routine 08/07/2023 3 :17 PM CDT Type 2 diabetes mellitus with hyperglycemia, without long-term current use of insulin (HCC) LIPID PANEL STAT 02/15/2022 2:00 PM FINISHING TRIMMER HEPATITIS PANEL, ACUTE Routine 12/15/2021 11:19 PM [...] classification and Diagnosis of Diabetes Diabetes Care 202; 46: S19-S40. Current interpretive data was last revised 2022. Blood 07/24/2024 3:38 PM CDT 07/24/2024 6:03 PM CDT Cadence Cavazos NP LAB BLOOD ORDERABLES Final Result Performing Organization Address City/State/[facility] Co de Phone Number [facility] [place] [address] * (ABNORMAL) eGFR (07/24/2024 3:38 PM CDT) [...] CDT 07/24/2024 6:07 PM CDT Cadence Cavazos TABLE GAMES DEALER LAB BLOOD ORDERABLES Final Result [facility] [place] [address] * Differential, auto (07/24/2024 3:38 PM CDT) Neutrophil abs 5.59 1.50 - 6.50 K/cumm Imm gran abs 0.03 0.00 - 0.10 K/cumm [facility] Lymphocyte abs 1.23 0.80 - 3.30 K/cumm [facility] Monocyte abs 0.58 0.20 - 0.80 K/cumm [facility] Eosinophil abs 0.07 0.00 - 0.50 K/cumm [facility] Basophil abs 0.04 0.00 - 0.10 K/cumm [facility] Neutrophil pct 74.2 % [facility] Comment: Interpretive Data Percent cell count reference ranges are not reported, since discordance with absolute values may lead to misinterpretation of CBC data. Current Interpretive Data was last revised on 2017. Imm gran pct 0.4 % [facility] Comment: Interpretive Data Percent cell count reference ranges are not reported, since discordance with absolute values may lead to misinterpretation of CBC data. Current Interpretive Data was last revised on 2017. Lymphocyte pct 16.3 % [facility] Comment: Interpretive Data Percent cell count reference ranges are not reported, since discordance with absolute values may lead to misinterpretation of CBC data. Current Interpretive Data was last revised on 2017. Monocyte pct 7.7 % [facility] Comment: Interpretive Data Percent cell count reference ranges are not reported, since discordance with absolute values may lead to misinterpretation of CBC data. Current Interpretive Data was last revised on 2017. Eosinophil pct 0.9 % [facility] Comment: Interpretive Data Percent cell count reference ranges are not reported, since discordance with absolute values may lead to misinterpretation of CBC data. Current Interpretive Data was last revised on 2017. Basophil pct 0.5 % [facility] Comment: Interpretive Data Percent cell count reference ranges are not reported, since discordance with absolute values may lead to misinterpretation of CBC data. Current Interpretive Data was last revised on 2017. Blood 07/24/2024 3:38 PM CDT 07/24/2024 6:03 PM CDT Cadence Cavazos NP LAB BLOOD ORDERABLES Final Result [facility] [place] [address] * (ABNORMAL) Comprehensive metabolic panel, without glucose (Outreach) (07/24/2024 3:38 PM CDT) Sodium 133(L) 135 - 145 mmol/L Potassium, pl 4.1 3.3 - 4.9 mmol/L [facility] Chloride 90(L) 97 - 110 mmol/L [facility] CO2 27 22 - 32 mmol/L [facility] Anion gap 16(H) 2 - 15 mmol/L [facility] BUN 21 6 - 25 mg/dL [facility] Creatinine 2.12(H) 0.60 - 1.10 mg/dL [facility] Calcium 9.5 8.5 - 10.3 mg/dL [facility] Protein, pl 7.2 6.5 - 8.5 g/dL [facility] Albumin 4.5 3.5 - 5.0 g/dL [facility] Bilirubin, total 0.2 0.1 - 1.2 mg/dL [facility] Alk phos 83 40 - 130 Units/L [facility] AST 26 10 - 45 Units/L [facility] ALT 10 7 - 45 Units/L [facility] Blood 07/24/2024 3:38 PM CDT 07/24/2024 6:03 PM CDT Cadence Cavazos NP LAB BLOOD ORDERABLES Final Result Performing Organization Address [facility] Co de Phone Number [facility] Department [place] [address] * (ABNORMAL) CBC with auto differential (07/24/2024 3:38 PM CDT) [facility] WBC 7.54 3.80 - 9.90 K/cumm Hgb 12.1 11.9 - 15.5 g/dL [facility] Hct 36.8 35.6 - 45.5 % [facility] Plt 266 150 - 400 K/cumm [facility] MPV 11.0 9.1 - 12.3 fL [facility] RBC 3.36(L) 3.90 - 5.20 M/cumm [facility] MCV 109.5(H) 81.3 - 96.4 fL [facility] MCH 36.0(H) 27.1 - 33.3 pg [facility] MCHC 32.9 32.3 - 35.7 g/dL [facility] RDW CV 14.3 11.1 - 14.9 % [facility] RDW SD 58.0(H) 35.7 - 48.1 fL [facility] NRBC abs 0.00 0.00 - 0.01 K/cumm [facility] Blood 07/24/2024 3:38 PM CDT 07/24/2024 6:03 PM CDT Cadence Cavazos NP LAB BLOOD ORDERABLES Final Result Performing Organization Address [facility]/ZIP Co de Phone Number [facility] [place] [address] * Erythrocyte sedimentation rate (07/24/2024 3:38 PM CDT) [facility] Erythrocyte sedimentation rate 18 1 - 30 mm/hr Blood 07/24/2024 3:38 PM CDT 07/24/2024 6:03 PM CDT Cadence Eilis Dirk TABLE GAMES DEALER LAB BLOOD ORDERABLES Final Result [facility] [place] [address] * (ABNORMAL) CRP (acute phase) (07/24/2024 3:38 PM CDT) CRP 10.1(H) <=10.0 mg/L Blood 07/24/2024 3:38 PM CDT 07/24/2024 6:03 PM CDT Cadence Cavazos TABLE GAMES DEALER LAB BLOOD ORDERABLES Final Result Performing Organization Address [facility] Co de Phone Number [facility] [place] [address] * XR Spine Lumbar 2 or 3 [...] by You Hills M.D. T: Report ID: [id number] Reading Location: [id number] Procedure Note You Hills MD - 05/30/2024 [...] by You Hills M.D. T: Report ID: [id number] Reading Location: [place] [address] Anneliese Byers TABLE GAMES DEALER IMG XR PROCEDURES Final Res ult * CT Lung Cancer Screening (03/25/2024 12:46 PM FINISHING TRIMMER) Anatomical Region Laterality Modality Chest N/A Computed Tomogra phy 03/26/2024 9:54 AM FINISHING TRIMMER Narrative 03/26/2024 10:03 AM FINISHING TRIMMER EXAM DESCRIPTION: CT LUNG CANCER SCREENING REASON [...] Almita Miller D.O. PS: PUSHPA Report ID: [id number] Reading Location: [id number] Procedure Note Almita Miller DO - 03/26/2024 [...] Almita Miller D.O. PS: PS Report ID: [id number] Reading Location: [place] [address] Ethan Leung MD IMG CT PROCEDURES Final Result * (ABNORMAL) POCT hemoglobin A1c (08/07/2023 3:17 PM CDT) Hemoglobin A1C, POC 5.9 % Capillary blood 08/07/2023 3 :17 PM CDT Briana Santana MD POINT OF CARE TEST ORDERABLES Fi nal Result * (ABNORMAL) Lipid panel (02/15/2022 2:00 PM FINISHING TRIMMER) Cholesterol 161 30 - 199 mg/dL [facility] [...] on 2017. HDL 42 >=40 mg/dL [facility] Comment: Interpretive Data Ages < [...] 2017. LDL, calculated 68 <=129 mg/dL [facility] Comment: Interpretive Data Ages < [...] on 2017. Non-HDL Cholesterol 119 mg/dL [facility] Comment: Interpretive Data Ages < [...] last revised on 2017. Chol/HDL ratio 4 [facility] Blood 02/15/2022 2:00 PM FINISHING TRIMMER 02/15/2022 5:52 PM FINISHING TRIMMER us Neri Loco MD LAB BLOOD ORDERABLES Fi nal Result Performing Organization Address [facility]/ZIP Co de Phone Number [facility] [place] [address] * Hepatitis panel, acute (12/15/2021 11:19 PM CDT) Hep A IgM Nonreactive Nonreactive Comment: Interpretive Data: If Hep A IgM Ab is reported as Equivocal, a new sample should be drawn in two weeks for testing. Current interpretive data was last revised on 19. Hep B core IgM Nonreactive Nonreactive [facility] Comment: Interpretive Data If HepB Core IgM Ab is reported as Equivocal, a new sample should be drawn in two weeks for testing. Current interpretive data was last revised on 19. Hep C Ab Nonreactive Nonreactive [facility] Comment:Antibodies to HCV no t detected. Does NOT exclude the possibility of recent exposure to HCV. HepBsAg Nonreactive Nonreactive [facility] Blood 12/15/2021 11:1 9 PM CDT 12/16/2021 12:30 AM CDT us Orly Fine MD LAB MICROBIOLOGY - GENERAL O RDERABLES Edited Result - Final Performing Organization Address City/[facility]/ZIP Co de Phone Number [facility] [place] [address] from Last 3 Months or Most Recently Relevant to Health Maintenance Additional Health Concerns Infection Onset Date Last Indicated MDR gram neg/ESBL 2022 2022 Insurance Advance Directives For more information, please contact: [phone] * Full Code (Latest Code Status on File) Date Activated Date Inactivated Comments 04/26/2022 9:48 PM 05/03/2022 6:39 PM * Full Code Date Activated Date Inactivated Comments 2022 9:27 PM 02/14/2022 9:56 PM * Full Code Date Activated Date Inactivated Comments 12/13/2021 5:40 PM 12/21/2021 6:14 PM * Full Code Date Activated Date Inactivated Comments 01/22/2020 1:18 PM 01/22/2020 10:15 PM Care Teams Community Arts Worker Relationship Specialty Start Date End Date Jorge Luis Hill MD PCP - General 04/30/18
--- OUTSIDE RECORDS SUMMARY | 2024-08-06 07:54 | XMS_ITS | Data Portability ---
Author Organization [place] [facility] [employer], Main Office Address [address] [place] [address] Care Team Providers Care Applied Anthropologist Name Role Phone MASSIMO QUINTANA Primary Care Provider Assessment No assessment recorded. Plan of Treatment Reminders Order Date Submit Date Provider Last Modified By Organization Details Last Modified Time Details Appointments None recorded. Lab None recorded. Referral None recorded. Procedures None recorded. Surgeries None recorded. Imaging None recorded. Medication Orders Breztri Aerosphere 160 mcg-9mcg-4. 8mcg/actuat ion HFA aerosol inhaler 2022 023 [id number], [address], [place], [id number], 3 21:32:06 albuterol sulfate HFA 90 mcg/actuati on aerosol inhaler 2022 023 [facility] #[id number], [address], [place], [phone], 3 21:32:06 ropinirole 0.5 mg tablet [address] [facility], [address] [place], [address], 3 21:39:36 Patient TargetsNo targets recorded. Patient InstructionsNo instructions recorded. Reason for Referral None Reported. Results Created Date Observation Date Name Description Value Unit Range Abnormal Flag Note LastModifiedBy Organization Detail LastModifiedTime 12/11/1912/07/2021 six minut e walk test* No observ ation record ed. [id number] [facility] ([facility]) [address], [place], [address], 04/27/2022 01:23:36 12/11/19 22 12/07/2021 compl ete PFT w/ post [facility] hodil ator clarisa metry * No observ ation record ed. [id number] [facility] ([facility]iology [facility]) [facility] [facility] [facility], [place], [address], 04/27/2022 01:23:36 12/25/19 22 12/07/2021 compl ete PFT w/ post [facility] hodil ator clarisa metry * No observ ation record ed. [id number] [facility] ([facility]) [address] [place] [address] [address] [facility], [place], [address], 04/27/2022 01:23:36 12/25/19 22 12/07/2021 six minut e walk test* No observ ation record ed. [id number] [facility] ([facility]) [address] [place] [address] [address] [facility], [place], [address], 04/27/2022 01:23:36 Result Notes None recorded. Problems Name Problem SNOMED Code Status Onset Date Resolution Date Notes Provider Name and Address Organization Details Recorded Time Chronic obstructive pulmonary disease 70914869 Active 2017 Not Available [facility] 3 01:04:05 Body mass index 30+ - obesity 519226539 Active 2017 Not Available [facility] 3 01:04:05 Abscess of submandibular region 56526379 Active 2021 Not Available [facility] 3 01:04:05 Gastroesophag eal reflux disease without esophagitis 994169877 Active 2017 Not Available [facility] 3 01:04:05 Tachycardia 2972457 Active 2021 Not Available [facility] 3 01:04:05 Periodic limb movement disorder 556421154 Active 2017 Not Available [facility] 3 01:04:05 Infection of tooth 077854346 Active 2021 Not Available [facility] 3 01:04:05 Nicotine dependence 87039333 Active 2020 Not Available [facility] 3 01:04:05 Dyspnea on exertion 48448788 Active 2017 Not Available [facility] 3 01:04:06 Allergic rhinitis 69922141 Active 2020 Not Available [facility] 3 01:04:06 Hemoptysis 39425014 Active 2021 Not Available [facility] 3 01:04:06 Chronic cough 50058574 Active 2021 Not Available [facility] 3 01:04:06 Obstructive sleep apnea syndrome 03667647 Active 2017 Not Available [facility] 3 01:04:06 Fatigue 70001149 Active 2017 Not Available [facility] 3 01:04:06 Tobacco dependence syndrome 77019668 Active 2017 Not Available [facility] 3 01:04:06 Problem Notes None recorded. Procedures Surgical History Date Name Laterality Status Provider Name and Address Organization Details Recorded Time 2 colonoscopy completed Not Available [facility] 04/28/19 23 00:52:48 Imaging Results None recorded. Procedure Notes None recorded. Medical Equipment None [...] Not Avai lable Vitals Date Recorded Body height Body temperature Heart rate Oxygen saturation Oxygen saturation in Arterial blood by Pulse oximetry Inhaled oxygen flow rate Systolic blood pressure Diastolic blood pressure Provider Name and Address Organization Details Last Updated DateTime 3 156.21 cm 96.6 [degF] 100 /min 97 % 97 % 2 L/min 120 mm[Hg] 70 mm[Hg] Bessie Ty MA [facility] [employer] [facility] 3 14:04:16 Date Recorded Body height Body temperature Heart rate Oxygen saturation Oxygen saturation in Arterial blood by Pulse oximetry Inhaled oxygen flow rate Systolic blood pressure Diastolic blood pressure Provider Name and Address Organization Details Last Updated DateTime 3 156.21 cm 97.3 [degF] 98 /min 95 % 95 % 2 L/min 120 mm[Hg] 64 mm[Hg] Bessie Ty MA [facility] [employer] [facility] 3 14:25:29 Date Recorded Body height Oxygen saturation Oxygen saturation in Arterial blood by Pulse oximetry Heart rate Systolic blood pressure Diastolic blood pressure Provider Name and Address Organization Details Last Updated DateTime 2 156.21 cm 98 % 98 % 91 /min 120 mm[Hg] 62 mm[Hg] Not Available [facility] 3 00:54:34 Date Recorded Body height Heart rate Oxygen saturation Oxygen saturation in Arterial blood by Pulse oximetry Inhaled oxygen flow rate Systolic blood pressure Diastolic blood pressure Provider Name and Address Organization Details Last Updated DateTime 3 156.21 cm 112 /min 97 % 97 % 2 L/min 118 mm[Hg] 68 mm[Hg] Laura Doyle [facility] [employer] [facility] 3 16:29:56 Date Recorded Body mass index (BMI) Body height Oxygen saturation Oxygen saturation in Arterial blood by Pulse oximetry Heart rate Body weight Systolic blood pressure Diastolic blood pressure Provider Name and Address Organization Details Last Updated DateTime 2 42.8 kg/m2 156.21 cm 98 % 98 % 90 /min 670348. 25 g 126 mm[Hg] 72 mm[Hg] Not Available [facility] 3 00:54:34 Social History Question Answer Notes LastModified by Organization Details LastModified Time Tobacco Smoking Status Current Every Day Smoker Not Available [facility] 04/27/2022 00:48:19 Do You Have An Advance Directive? No MIGRATION.0301 [id number] Information not available 04/27/2022 What Is Your Level Of Caffeine Consumption? Heavy Coffee Drinker All Day Longer MIGRATION.0301 508653 Information not available 04/27/2022 How Much Tobacco Do You Chew? None MIGRATION.0301 024806 Information not available 04/27/2022 In The 14 Days Before Symptom Onset, Have You Had Close Contact With A Laboratory-confi rmed COVID-19 While That Case Was Ill? No MIGRATION.0301 178619 Information not available 04/27/2022 In The 14 Days Before Symptom Onset, Have You Had Close Contact With A Person Who Is Under Investigation For COVID-19 While That Person Was Ill? No MIGRATION.0301 078312 Information not available 04/27/2022 What Type Of Diet Are You Following? REGULAR MIGRATION.0301 790939 Information not available 04/27/2022 Which Illicit Or Recreational Drugs Have You Used? None MIGRATION.0301 057727 Information not available 04/27/2022 Do You Have An Electrostatic Air Filter? No MIGRATION.0301 517569 Information not available 04/27/2022 Do You Have A Humidifier? No MIGRATION.0301 181946 Information not available 04/27/2022 Where Do You Live? [facility] MIGRATION.0301 293828 Information not available 04/27/2022 Do You Have Moisture Problems In Your Home? No MIGRATION.0301 911917 Information not available 04/27/2022 What Was The Date Of Your Most Recent Tobacco Screening? 12/01/2020 MIGRATION.0301 447309 Information not available 04/27/2022 How Many Children Do You Have? 2 MIGRATION.0301 218302 Information not available 04/27/2022 Have You Ever Been Counseled For Unhealthy Alcohol Use? No MIGRATION.0301 727737 Information not available 04/27/2022 Do You Have Any Pets? Yes Dogs Inside MIGRATION.0301 693941 Information not available 04/27/2022 Do You Have Smoke And Carbon Monoxide Detectors In Your Home? Yes MIGRATION.0301 625150 Information not available 04/27/2022 At What Age Did You Start Smoking Tobacco? 12 MIGRATION.0301 935434 Information not available 04/27/2022 Are You Passively Exposed To Smoke? Yes MIGRATION.0301 103076 Information not available 04/27/2022 How Much Tobacco Do You Smoke? 0.5 PPD MIGRATION.0301 436278 Information not available 04/27/2022 Has Tobacco Cessation Counseling Been Provided? No MIGRATION.0301 707219 Information not available 04/27/2022 How Many Years Have You Smoked Tobacco? 47 MIGRATION.0301 509052 Information not available 04/27/2022 Have You Recently Traveled Abroad? No MIGRATION.0301 484796 Information not available 04/27/2022 Do You Have Any Dietary Restrictions? No MIGRATION.0301 742334 Information not available 04/27/2022 Sex: Female Functional Status Question Answer Note LastModified by Organizat ion Details LastModified Time Do you use any illicit or recreational drugs? No MIGRATION.764772 0206 Information not available 04/27/2022 Do you or have you ever used any other forms of tobacco or nicotine? No MIGRATION.909543 5795 Information not available 04/27/2022 What is your level of alcohol consumption? None MIGRATION.287976 4403 Information not available 04/27/2022 Do you or have you ever used smokeless tobacco? 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 Never used electronic cigarettes MIGRATION.614486 0443 Information not available 04/27/2022 What is your exercise level? None MIGRATION.307519 6342 Information not available 04/27/2022 Mental Status None recorded. Family History Relationship Description Onset Age of this Age Resolved Age Notes LastModified by Organization Details LastModified Time Mother Heart disease MIGRATION.829 [id number] Not available 04/27/2022 00:52:53 Mother Hyperlipidem ia MIGRATION.470 0111041 Not available 04/27/2022 00:52:53 Father Diabetes mellitus MIGRATION.388 5354942 Not available 04/27/2022 00:52:54 Father Hypertensive disorder MIGRATION.452 [id number] Not available 04/27/2022 00:52:54 Father Hyperlipidem ia MIGRATION.274 5830743 Not available 04/27/2022 00:52:54 Maternal Grandmother Hypertensive disorder MIGRATION.161 2139011 Not available 04/27/2022 00:52:54 Maternal Grandmother Diabetes mellitus MIGRATION.556 5093865 Not available 04/27/2022 00:52:54 Maternal Grandmother Hyperlipidem ia MIGRATION.051 2019211 Not available 04/27/2022 00:52:54 Maternal Aunt Tuberculosis MIGRA TION.412 6281598 Not available 04/27/2022 00:52:54 Medical History Condition Response LUNG DISEASE/DISORDER Y OBESITY Y GERD/NAUSEA Y HYPERTENSION Y INSOMNIA Y HIGH CHOLESTEROL / HYPERLIPIDEMIA Y HAVE YOU BEEN HOSPITALIZED OR SEEN IN [facility] ER IN THE PAST YEAR ? Y DIABETES, [...] SNOMED-CT Code Diagnosis ICD10 Code Diagnosis Note [id number] Jany Hernandez, SPOOL CLEANER HAND- [facility] [address] [address] 05/04/2020 00:00:00 05/04/2020 16:30:03 [id number] [facility] [place] [address] [place] [address] 08/04/2020 00:00:00 08/04/2020 22:05:39 [id number] [facility] [place] [address] [place] [address] 12/01/2020 00:00:00 12/01/2020 16:42:55 [id number] [facility] [place] [address] [place] [address] 01/18/2021 00:00:00 01/18/2021 13:55:44 [id number] MD NATHAN Obando IGRATION_ DEFAULT_1 _1 , 05/06/2021 00:00:00 05/06/2021 20:34:03 [id number] S_[facility] ic[facility] [place] [address] [place] [address] 05/17/2021 00:00:00 05/17/2021 15:36:20 [id number] MD NATHAN Obando IGRATION_ DEFAULT_1 _1 , 07/01/2021 00:00:00 07/01/2021 18:04:40 [id number] [facility] [place] [address] [place] [address] 08/17/2021 00:00:00 08/17/2021 15:25:57 [id number] PATRICA Hardy S_[facility] [place] [address] [place] [address] 11/29/2021 00:00:00 11/29/2021 14:11:03 [id number] [facility] [place] [address] [place] [address] 01/10/2022 00:00:00 01/10/2022 22:47:30 [id number] Lisa Zelaya NP [facility] [address] [address] 08/17/2020 00:00:00 08/17/2020 19:27:11 [id number] Lisa Zelaya NP S_[facility] [address] [address] 09/16/2020 00:00:00 09/16/2020 17:31:30 [id number] Lisaalbert Zelaya, WATCH COMMANDER [facility] [address], [address] [address] 10/14/2020 00:00:00 10/14/2020 16:40:48 [id number] Lisa Zelaya, WATCH COMMANDER [facility] [address], [address] [address] 11/11/2020 00:00:00 11/11/2020 16:25:13 [id number] Lisaalbert Zelaya, WATCH COMMANDER [facility] [address] [place], [address] [address] 12/10/2020 00:00:00 12/10/2020 16:23:52 [id number] Lisa Zelaya, WATCH COMMANDER [facility] [address], [address] [address] 02/01/2021 00:00:00 02/01/2021 12:49:29 [id number] Lisa Zelaya, WATCH COMMANDER [facility] [address], [address] [address] 03/18/2021 00:00:00 03/18/2021 15:50:51 [id number] Lisa Zelaya, WATCH COMMANDER [facility] [address], [address] [address] 04/28/2021 00:00:00 04/28/2021 16:40:45 [id number] Lisa Zelaya, WATCH COMMANDER [facility] [address] [place] [address] [address] 05/26/2021 00:00:00 05/26/2021 18:15:58 [id number] Lisa Zelaya, WATCH COMMANDER [facility] [address], [address] [address] 06/23/2021 00:00:00 06/23/2021 17:59:26 [id number] Lisa Zelaya NP [facility] [address] [place], [address] [address] 07/21/2021 00:00:00 07/21/2021 18:12:22 [id number] Lisa Zelaya NP [facility] [address] [place], [address] [address] 09/23/2021 00:00:00 09/24/2021 15:34:34 [id number] Lisa Zelaya NP [facility] [address], [address] [address] 10/26/2021 00:00:00 10/27/2021 11:35:19 [id number] Lisa Zelaya NP [facility] [address] [place], [address] [address] 12/23/2021 00:00:00 12/23/2021 17:16:35 [id number] Lisa Zelaya NP [facility] [address] [place], [address] [address] 03/01/2022 00:00:00 03/01/2022 15:14:47 [id number] Lisa Zelaya NP [facility] [address] [place], [address] [address] 05/18/2022 16:17:51 05/18/2022 19:08:45 [id number] Jany Hernandez, [facility] [facility] [place] [address] [place] [address] 05/24/2022 13:49:11 05/25/2022 08:31:43 Chronic obstructive pulmonary disease 41080913 J44.9 Trelegy Ellipta with persistent thrush reactions. Remain on Breztri 2 puffs BID.Nebuli zer for PRN useContinu e rescue MDI PRN.She is aware of reportable signs and symptoms.C clayton montiel tRepeat PFT 11/2021 in chart, essentiall y unchangedR TC in 6 weeks, PRN for concerns Periodic l imb movement disorder 882577275 G47.61 ELIOT is not correctedC ontinue Ropinirole Obstructiv e sleep apnea syndrome 67289714 G47.33 Split night titration 03/21/14 with AHI 40.3.New machine pack assembler 02/17/20Do wnload today with 77% use greater [...] and lose weight Abscess of submandibular region 60971781 K12.2 CT Neck 12/13/21IM PRESSION:E rosion involving [...] drainable fluidcolle ction.Surg anson completed Chronic cough 96425579 R 05.3 She must quit smoking and maintain inhaler compliance Benzonatat e PRN onlyhistor y of multiple allergies to cat, dog, grassesCon tinue ClaritinSh e needs to see engineering faculty member - previous referralSh e will schedule this after surgery for abscess Nicotine dependence 5629 4008 Z87.891 Smoking cessation counseling and techniques reviewed at length. Literature reviewed.A void triggers, support groups.Dis traction techniques Greater than 3 but less than 10 minutes spent discussing cessation. Declines NRT.Discus sed Rx options if needed in the future. Dependence on supplemental oxygen 6910906480 07 Z99.81 2 liters with activity on DC from hospital C home care: / [phone] is compliant and has good benefit [id number] Jany Hernandez, [facility] [place] [address] [place] [address] 07/05/2022 13:58:42 07/06/2022 08:23:18 Chronic obstructive pulmonary disease 77869906 J44.9 Trelegy Ellipta with persistent thrush reactions. 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 02/17/20Do wnload today with 77% use greater [...] signs and symptoms Dependence on supplemental oxygen 2694290988 07 Z99.81 2 liters with activity on DC from [facility] home care: / [phone] is compliant and has good benefitPla n to repeat this fall Dyspnea on exertion 6084 5006 R06.09 Multifacto ralLabs except RAST WNLShe must quit smoking and lose weight Chronic cough 67197181 R 05.3 She must quit smoking and maintain inhaler compliance Benzonatat e PRN only - order verbally called to pharmacy todayhisto ry of multiple allergies to cat, dog, grassesCon tinue ClaritinSh e needs to see engineering faculty member - previous referral Abscess of submandibular region 83005443 K12.2 CT Neck 12/13/21IM PRESSION:E rosion involving [...] Rx options if needed in the future. [id number] Lisa Zelaya NP [facility] [address], [address] [address] 08/17/2022 15:15:54 08/17/2022 18:08:44 [id number] Lisa Zelaya NP [facility] [address] [address] 09/22/2022 15:15:15 09/26/2022 17:03:51 [id number] Lisa Zelaya NP [facility] [address] [address] 11/15/2022 15:50:53 11/15/2022 16:43:16 [id number] Jany Hernandez, [facility]_G Pulmonolo gy [place] [address] [place] [address] 11/30/2022 16:05:16 11/30/2022 17:25:18 Chronic obstructive pulmonary disease 60021063 J44.9 Trelegy Ellipta with persistent thrush reactions. 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 02/17/20Do wnload today with 80% use greater [...] signs and symptoms Dependence on supplemental oxygen 2347185877 07 Z99.81 2 liters with activity on DC from [facility] C home care: / [phone] is compliant and has good benefit Dyspnea on exertion 6084 5006 R06.09 Multifacto ralLabs except RAST WNLShe must quit smoking and lose weight Chronic cough 80971571 R 05.3 She must quit smoking and maintain inhaler compliance history of multiple allergies to cat, dog, grassesCon tinue ClaritinSh e needs to see engineering faculty member - previous referral Abscess of submandibular region 34740394 K12.2 CT Neck 12/13/21IM PRESSION:E rosion involving [...] Rx options if needed in the future. [id number] [facility] [address] [facility] [address] 02/09/2023 16:02:05 02/09/2023 17:31:11 [id number] Lisa Zelaya NP [facility] [address] [address] 05/02/2023 14:38:16 05/02/2023 15:37:25 [id number] Lisa Zelaya NP [facility] [address] [address] 09/25/2023 15:27:14 09/25/2023 17:33:48 [id number] Lisa Zelaya NP [facility] [address] [address] 11/30/2023 15:04:02 11/30/2023 15:47:13 [id number] iLsa Zelaya NP [facility] [address] [address] 02/14/2024 14:44:14 02/14/2024 15:16:38 [id number] Lisa Zelaya NP [facility] [address] [address] 04/09/2024 14:31:00 04/18/2024 12:13:35 [id number] Lisa Zelaya NP [facility] [address] [place] [address] [address] 07/08/2024 14:29:57 07/08/2024 15:19:04 Health Concerns Section Related Observation LastModified by Organization Detai ls LastModified Time None Recorded Concern Status LastModified by Organization Details LastModified Time None Recorded Advance Directives Directive N: Payers Encounter Date Sequence Insurance Name Policy Number Policy Beth Covered Member ID Beth Member ID Guarantor Name 05/24/2022 1 [facility] ON OR AFTER 08/27/20 (MEDICAID REPLACEMENT - HMO) Bev Grossman [id number] Bev Viramontess 07/05/2022 1 [facility] ON OR AFTER 08/27/20 (MEDICAID REPLACEMENT - HMO) Bev Prabhakar Grossman [id number] Bev Prabhakar Grossman 11/30/2022 1 [facility] - [facility] ON OR AFTER 20 (MEDICAID REPLACEMENT - HMO) Bev Prabhakar Chauncey [id number] Bev Prabhakar Chauncey Notes Date Note Type [...] and staminaLiving out of a hotel roomTells ak all she does is go to the [...] in the last 3 months Jany Hernandez, [facility] [address] [facility], [facility] [address], [place], [address], [facility] 05/24/2022 16:45:47 07/05/2022 text/html Bev presents today [...] last 4 months PATRICA Hardy [address], [place] [address], [place], [address], [employer] 07/05/2022 21:43:21 11/30/2022 text/html Bev presents today [...] since last OV PATRICA Hardy [address], [place] [address], [place], [address], [employer] 11/30/2022 21:36:04 OBGyn Episode No OBEpisode recorded.
--- OUTSIDE RECORDS SUMMARY | 2024-08-06 07:54 | XMS_ITS | Encounter Summary ---
Author Organization [facility] Address [address] [place] [address] Phone Care Team Providers Care Pharmacy Technician Assistant Name Role Phone Jorge Luis Hill MD Primary Care Provider [phone] Encounter Details Date Type Department Care Team (Late st Contact Info) Description 05/07/2022 Documentation [facility] ([facility]) - [facility] [address] Advanced Medicine [address]th [place] [address] [place] [address] Amadeo Bazzi MD [address] [place] [address] Social History Tobacco Use Types [...] any clubs o r organizations such as anabaptism groups, unions, fraternal or athletic groups, or [...] in a m[facility]p (including now)? 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
--- OUTSIDE RECORDS SUMMARY | 2024-08-06 07:55 | XMS_ITS | Clinical Summary ---
Author Organization [facility] Address [address] [place] [address] Care Team Providers Care Greenhouse Instructor Name Role Phone Jorge Luis Hill MD Primary Care Provider [phone] Medications PROAIR HFA 90 mcg/actuation inhaler INHALE [...] mg tablet Active naloxone (Narcan) 4 mg/spray [place], Non-Aerosol Narcan 4 mg/actuation nasal spray 03/18/19 [...] 3:27 PM CDT Height 157.5 cm (5' 2) 11/12/2021 11:38 AM CDT Body Mass Index [...] Insurance [employer] Care Teams Greenhouse Instructor Relationship Specialty Start Date End Date Jorge Luis Hill MD PCP - General Emergency Medicine 05/30/18
--- OUTSIDE RECORDS SUMMARY | 2024-08-06 07:55 | XMS_ITS | Continuity of Care Document ---
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 tel:[phone] Referring Provider: Lala Higgins, [place], [place], [address]. tel:[phone] PREV VISIT, EST, AGE 40-64 [facility], [address] [place], [address], tel:[phone] [facility] PHysical (chief complaint) Routine Medical ExamHypertension, UnspecifiedGenera lized anxiety disorderHeadacheR outine Medical Exam 0 4 Nicolas Smith [address] [facility] [place], [address] , [place]. tel:[phone] Referring Provider: Lala Higgins [address], [place], [place], [address]. tel:[phone] OFFICE/OUTPA TIENT VISIT, [facility], [address], [place], [place], [address], [place] tel:[phone] [facility] back pain (chief complaint)HT N (chief complaint)HL P (chief complaint)[place] PD (chief complaint) Dietary surveillance and counselingCOPDLum bagoHypertension, UnspecifiedOther and unspecified hyperlipidemia 4 Nicolas Johansen. [address], [place], [place], [address] , [place]. tel:[phone] Referring Provider: Lala Higgins [address], [place], [place], [address]. tel:[phone] OFFICE/OUTPA TIENT VISIT, [facility], [address], [place], [place], [address], [place] tel:[phone] [facility] back pain (chief complaint)HT N (chief complaint)HL P (chief complaint)an xiety (chief complaint) Dietary surveillance and counselingHypoten tnaja, UnspecifiedOther and unspecified hyperlipidemiaGen eralized anxiety disorderLumbago 4 Nicolas Smith [address], [place], [place], [address] , [place]. [phone] Referring Provider: Lala Higgins [address], [place], [place], [address]. tel:[phone] OFFICE/OUTPA TIENT VISIT, [facility], [address], [place], [place], [address], [place] tel:[phone] [facility] hypotension (chief complaint)ba ck pain (chief complaint)fa tigue (chief complaint)easton nd fx (chief complaint) Dietary surveillance and counselingHypoten tanja, UnspecifiedLumbag oFatigue / MalaiseClosed fracture of base of other metacarpal bone(s) 4 Nicolas Johansen. [address], [place], [place], [address] , [place]. tel:[phone] Referring Provider: Lala [address], [place], [place], [address]. tel:[phone] OFFICE/OUTPA TIENT VISIT, [facility], [address], [place], [place], [address], [place] tel:[phone] [facility] back pain (chief complaint)so re throat (chief complaint)easton nd pain (chief complaint) Dietary surveillance and counselingPain in joint involving handLumbagoThroat pain 4 Nicolas Smith [address], [place], [place], [address] , [place]. tel:[phone] Referring Provider: Lala Higgins [address], [place], [place], [address]. tel:[phone] OFFICE/OUTPA TIENT VISIT, [facility], [address], [place], [address], [place] tel:[phone] [facility] depression (chief complaint)[place] PD (chief complaint)ba ck pain (chief complaint) Dietary surveillance and counselingLumbago COPDHypertension, UnspecifiedRESTLE SS LEGS SYNDROME 4 Nicolas Smith [address], [place], [place], [address] , [place]. tel:[phone] Referring Provider: Lala Higgins [address], [place], [place], [address]. tel:[phone] OFFICE/OUTPA TIENT VISIT, [facility], [address], [place], [place], [address], [place] tel:[phone] [facility] anxiety (chief complaint)ba ck pain (chief complaint)UT I (chief complaint)[place] PD (chief complaint) Dietary surveillance and counselingUrinary Tract InfectionGenerali zed anxiety disorderLumbagoCO PD 4 Nicolas Smith [address], [place], [place], [address] , [place]. tel:[phone] Referring Provider: Eleno Valenzuela, [address], [place], [place], [address]. tel:[phone] OFFICE/OUTPA TIENT VISIT, [facility], [address], [place], [address], [place] tel:[phone] [facility] back pain (chief complaint)sw eet smell in urine (chief complaint)HT N (chief complaint)in somnia (chief complaint) Dietary surveillance and counselingLumbago Metabolic SyndromeHypertens ion, UnspecifiedInsomn ia, Other 3 Nicolas Johansen. [address], [place], [place], [address] , [place]. [phone] Referring Provider: Eleno Valenzuela, [address], [place], [place], [address]. tel:[phone] OFFICE/OUTPA TIENT VISIT, [facility], [address], [place], [place], [address], [place] tel:[phone] [facility] back pain (chief complaint)an xiety (chief complaint)fa tigue (chief complaint) Dietary surveillance and counselingLumbago Generalized anxiety disorderFatigue / Malaise 3 Nicolas Johansen. [address], [place], [place], [address] , [place]. tel:[phone] Referring Provider: Lala Higgins [address], [place], [place], [address]. tel:[phone] OFFICE/OUTPA TIENT VISIT, [facility], [address], [place], [place], [address], [place] tel:[phone] [facility] HTN (chief complaint)ba ck pain (chief complaint)an xiety (chief complaint) Dietary surveillance and counselingHyperte nsion, UnspecifiedLumbag oGeneralized anxiety disorder 3 Nicolas Johansen. [address], [place], [place], [address] , [place]. tel:[phone] Referring Provider: Eleno Valenzuela, [address], [place], [place], [address]. tel:[phone] OFFICE/OUTPA TIENT VISIT, [facility], [address], [place], [place], [address], tel:[phone] [facility] back pain (chief complaint)an xiety (chief complaint)HT N (chief complaint)[place] PD (chief complaint) Dietary surveillance and counselingLumbago Hypertension, UnspecifiedGenera lized anxiety disorderCOPD 3 Nicolas Johansen. [address], [place], [place], [address] , [place]. [phone] Referring Provider: Eleno Valenzuela, [address], [place], [place], [address]. tel:[phone] OFFICE/OUTPA TIENT VISIT, [facility], [address], [place], [address], [place] tel:[phone] [facility] otalgaia (chief complaint)ba ck pain (chief complaint)an xiety (chief complaint)HT N (chief complaint)sl eep apnea (chief complaint) Dietary surveillance and counselingOther acute otitis externaHypertensi on, UnspecifiedGenera lized anxiety disorderSleep Apnea 3 Nicolas Johansen. [address], [place], [place], [address] , [place]. [phone] Referring Provider: Eleno Valenzuela, [address], [place], [place], [address]. tel:[phone] OFFICE/OUTPA TIENT VISIT, [facility], [address], [place], [address], [place] tel:[phone] [facility] lumbago (chief complaint)pr eDM (chief complaint)HL P (chief complaint)an xiety (chief complaint)fa tigue (chief complaint) Dietary surveillance and counselingSleep ApneaLumbagoMetab olic SyndromeOther and unspecified hyperlipidemia 3 Nicolas Johansen. [address], [place], [place], [address] , [place]. tel:[phone] Referring Provider: Lala Higgins [address], [place], [place], [address]. tel:[phone] PREV VISIT, EST, AGE 40-64 [facility], [address], [place], [address], [place] tel:[phone] [facility] Physical (chief complaint) Routine Medical ExamDietary surveillance and counselingLumbago Routine Medical Exam 3 Nicolas Johansen. [address], [place], [place], [address] , [place]. tel:[phone] Referring Provider: Eleno Valenzuela, [address], [place], [place], [address]. tel:[phone] OFFICE/OUTPA TIENT VISIT, [facility], [address], [place], [address], [place] tel:[phone] [facility] back pain (chief complaint)ri ght side swelling (chief complaint) Dietary surveillance and counselingLumbago Enlargement of lymph nodesViral Infection, Unspecified 3 Nicolas Johansen. [address], [place], [place], [address] , [place]. tel:[phone] Referring Provider: Lala Higgins [address], [place], [place], [address]. tel:[phone] OFFICE/OUTPA TIENT VISIT, [facility], [address], [place], [place], [address], [place] tel:[phone] [facility] COPD (chief complaint)GE RD (chief complaint)De pression (chief complaint)it saw (chief complaint) Dietary surveillance and counselingLumbago Hypertension, UnspecifiedGenera lized anxiety disorderCOPD 3 Nicolas Johansen. [address], [place], [place], [address] , [place]. tel:[phone] Referring Provider: Lala Higgins [address], [place], [place], [address]. tel:[phone] OFFICE/OUTPA TIENT VISIT, [facility], [address], [place], [place], [address], [place] tel:[phone] [facility] back pain (chief complaint)an xiety (chief complaint)El bow pain (chief complaint) LumbagoGeneralize d anxiety disorderDietary surveillance and counselingPain in joint involving upper arm 3 Nicolas Johansen. [address], [place], [place], [address] , [place]. tel:[phone] Referring Provider: Lala Hig[address], [place], [place], [address]. tel:[phone] OFFICE/OUTPA TIENT VISIT, [facility], [address], [place], [place], [address], [place] tel:[phone] [facility] back pain (chief complaint)an xiety (chief complaint)di zziness (chief complaint) Dietary surveillance and counselingLumbago Generalized anxiety disorderDizziness Anal and rectal polyp 3 Nicolas Johansen. [address], [place], [place], [address] , [place]. [phone] Referring Provider: Lala Hig[address], [place], [place], [address]. tel:[phone] OFFICE/OUTPA TIENT VISIT, [facility], [address], [place], [place], [address], [place] tel:[phone] [facility] back pain (chief complaint)HL P (chief complaint)an xiety (chief complaint) Dietary surveillance and counselingHyperte nsion, UnspecifiedLumbag oGeneralized anxiety disorderOther and unspecified hyperlipidemia 3 Nicolas Johansen. [address], [place], [place], [address] , [place]. [phone] Referring Provider: Lala Higgins [address], [place], [place], [address]. tel:[phone] OFFICE/OUTPA TIENT VISIT, [facility], [address], [place], [place], [address], [place] tel:[phone] [facility] back pain (chief complaint)HL P (chief complaint)an xiety (chief complaint) Dietary surveillance and counselingLumbago Generalized anxiety disorderOther and unspecified hyperlipidemiaHyp ertension, Unspecified 2 Nicolas Johansen. [address], [place], [place], [address] , [place]. tel:[phone] Referring Provider: Eleno Valenzuela, [address], [place], [place], [address]. tel:[phone] OFFICE/OUTPA TIENT VISIT, [facility], [address], [place], [place], [address], [place] tel:[phone] [facility] back pain (chief complaint)an xiety (chief complaint)fa ll (chief complaint)HL P (chief complaint)he adache (chief complaint) Dietary surveillance and counselingOther and unspecified hyperlipidemiaHea dacheLumbagoGener alized anxiety disorderInfluenza Vaccine 2 Nicolas Johansen. [address], [place], [place], [address] , [place]. tel:[phone] Referring Provider: Eleno Valenzuela [address], [place], [place], [address]. tel:[phone] OFFICE/OUTPA TIENT VISIT, [facility], [address], [place], [place], [address], [place] tel:[phone] [facility] insomnia (chief complaint)ba ck pain (chief complaint)an xiety (chief complaint) Dietary surveillance and counselingHyperte nsion, UnspecifiedInsomn ia, OtherLumbagoCOPD 2 Nicolas Johansen. [address], [place], [place], [address] , [place]. tel:[phone] Referring Provider: Lala Higgins [address], [place], [place], [address]. tel:[phone] OFFICE/OUTPA TIENT VISIT, EST [facility], [address], [place], [place], [address], [place] tel:[phone] [facility] back pain (chief complaint)di zziness (chief complaint)fa tigue (chief complaint)hy pertension (chief complaint) Dietary surveillance and counselingHeadach eMajor depressive affective disorder, single episode, mild degreeFatigue / MalaiseLumbagoDiz ziness 2 Nicolas Johansen. [address] [place], [address] , [place]. tel:[phone] Family History Family Member Type Diagnosis Age At Onset Father Problem (finding) Hypertension Father Problem (finding) Alzheimer's Disease Father Problem (finding) Stroke Mother Problem (finding) Stroke Mother Problem (finding) Hypertension Immunizations Vaccine Date Status Comments Flu (split) (3 yrs or older) administered Source: New Immunization Record Payers Payer name Insurance type Covered green party ID Authoriza tion(s) No Information Social [...]
--- OUTSIDE RECORDS SUMMARY | 2024-08-06 07:55 | XMS_ITS | Clinical Summary ---
Author Organization [facility] Address [address] [place] [address] Care Team Providers Care Line Maintenance Name Role Phone Jorge Luis Hill MD Primary Care Provider [phone] Source Comments [facility],non-owned Affiliates and Associated Physician Practices is amultiple site organization consisting of ambulatory clinics and hospital sitesin [place], [place], [place] and [place]. This disclosure is being madepursuant to the Care Everywhere program and may not contain all information available regarding this patient. Last updated 17.[facility] Allergies No known active allergies Medications * [...] naloxone HCl (Narcan) 4 MG/0.1ML nasal spray [place] 40 (forty) sprays into the nose as [...] on file Legal Sex Female 7:26 PM PLASTICS NURSE Gender Identity Not on file Sexual Orientation Not on file Last Filed Vital Signs Vital Sign Reading Time Taken Comments Blood Pressure 155/92 03/24/2023 2:17 PM PLASTICS NURSE Pulse 101 03/24/2023 2:17 PM PLASTICS NURSE Temperature 36.7 C (98 F) 03/24/2023 2:17 PM PLASTICS NURSE Respiratory Rate 18 03/24/2023 2:17 PM PLASTICS NURSE Oxygen Saturation 96% 03/24/2023 2:17 PM PLASTICS NURSE Inhaled Oxygen Concentration - - Weight 84.3 kg (185 lb 12.8 oz) 03/24/2023 2:17 PM PLASTICS NURSE Height 162.6 cm (5' 4) 03/24/2023 2:17 PM PLASTICS NURSE Body Mass Index 31.89 03/24/2023 2:17 PM PLASTICS NURSE Plan of Treatment Upcoming Encounters Date Type Department Care Team (Late st Contact Info) Description 10/11/2024 1:00 PM CDT Office Visit [facility] - Endocrinology [address] [place] [address], [place] [address] Mee Yates MD [address] [place] [address] [place] [address] Health Maintenance Due Date Last [...] patient's age to complete this topic Insurance [facility] Care Teams Line Maintenance Relationship Specialty Start Date End Date Jorge Luis Hill MD [address] [place] [address] [address] [place] [address] PCP - General 02/10/17
--- OUTSIDE RECORDS SUMMARY | 2024-08-06 07:55 | XMS_ITS | CONTINUITY OF CARE DOCUMENT ---
Author Name meli garrison Address Unknown Organization [facility] Address [address] [place] [address] Phone [phone] Care Team Providers Care Poultry Killer Name Role Phone Oneil CANSECO, Bulmaro Unavailable MASSIMO QUINTANA MD Unavailable [phone] MASSIMO QUINTANA MD Unavailable [phone] PROBLEMS Condition Status Date Provider Notes TOBACCO [...] 55 completed - Bulmaro Mendieta DIZZINESS S/P EVP BUSINESS DEVELOPMENT SHUNT--stre ss nuc normal ef 57%, 10/2017 [...] In-person encounter Office Visit Bulmaro Riggs MD [facility] - In-person encounter Office Visit Bulmaro Riggs MD [facility] - In-person encounter Office Visit Bulmaro Riggs MD [facility] - In-person encounter Office Visit Bulmaro Riggs MD [facility] CAD-05/05 CAROTID NEGHTN--echo ef 61%, AD--normal stress nuc 02/2021 - In-person encounter Office Visit Bulmaro Riggs MD [facility] Shortness of breath - In-person encounter Office Visit Bulmaro Riggs MD [facility] HTN-09/04 ECHO EF 45-50 05/05 ECHO EF 35 ,EF 09/05 60%CAD-01/02 NUC EF 40 NORMHTN-05/05 JESIKA DUP NEGHTN-09/05 ECHO EF 55DIZZINESS S/P EVP BUSINESS DEVELOPMENT SHUNT--stress nuc normal ef 57%, 10/2017HTN--echo ef 61%, hronic back pain - In-person encounter Office Visit Bulmaro Riggs MD [facility] - In-person encounter Office Visit Bulmaro Riggs MD [facility] - In-person encounter Office Visit Bulmaro Riggs MD [facility] - In-person encounter Office Visit Bulmaro Riggs MD [facility] Diabetes mellitus - In-person encounter Office Visit Bulmaro Riggs MD [facility] - In-person encounter Office Visit Bulmaro Riggs MD [facility] - In-person encounter Office Visit Bulmaro Riggs MD [facility] - In-person encounter Office Visit Bulmaro Riggs MD [facility] - In-person encounter Office Visit Bulmaro Riggs MD [facility] - In-person encounter Office Visit Bulmaro Riggs MD [facility] - In-person encounter Office Visit Bulmaro Riggs MD [facility] DIZZINESS S/P EVP BUSINESS DEVELOPMENT SHUNT--stress nuc normal ef 57%, 10/2017SLEEP APNEA ON CPAP - In-person encounter Office Visit Bulmaro Riggs MD [facility] - In-person encounter Office Visit Bulmaro Riggs MD [facility] - In-person encounter Office Visit Bulmaro Riggs MD [facility] - In-person encounter Office Visit Bulmaro Riggs MD [facility] - In-person encounter Office Visit Bulmaro Riggs MD [facility] - In-person encounter Office Visit Bulmaro Riggs MD [facility] - In-person encounter Office Visit Bulmaro Riggs MD [facility] CHEST PAIN-06/04 CATH DIFFUSE DISEASE LAD DISHTN-09/04 ECHO EF 45-50 05/05 ECHO EF 35 ,EF 09/05 60% - In-person encounter Office Visit Bulmaro Riggs MD [facility] VITAL SIGNS Date Observation Value Provider [...] blood pressure, cuff size large [facility] blood pressure, diastolic 60 mm[Hg] [facility] blood pressure, systolic 100 mm[Hg] [facility] oxygen saturation, oximetry 98 % [facility] respiratory rate E&M 16 /min [facility] pulse rate 94 /min [facility] d [...] Normal Absolute Neutrophil count 5491 cells/mcL [facility] [id number] Normal platelet count 258 THOUSAND/UL [facility] 140-400 [...] TAKE 1 TABLET BY MOUTH DAILY [facility] diltiazem HCl (Cardizem CD) 360 mg [...] tizanidine 4 mg tablet completed - Omar Stewartkennyrob cetirizine 10 mg tablet active Omar Vargas [...] active 1 tablet [facility] mg capsule completed 1 capsule twice a day - Bulmaro Riggs MD CATAPRES 0.1 MG ORAL TABLET active 1 tablet once a day Omar Vargas alendronate 70 mg tablet completed 1 tablet once a week - Bulmaro Riggs MD ProAir HFA 90 mcg/actuation HFA aerosol inhaler active as needed [facility] VITAMIN D3 29840 UNIT ORAL TABLET active Take once a week Anushka Waterman ROPINIROLE HCL TABLET active Take every night Luz Maria Kwon losartan 50 mg tablet completed Take 1 tablet once a day - Lorraine Mack CLONIDINE HCL 0.1 MG ORAL TABLET completed ONE TAB. TWICE DAILY - Luz Maria Kown carvedilol 12.5 mg tablet completed Take 1 [...] 7.5-325 MG ORAL TABLET completed - Neri Manazul LISINOPRIL 20 MG ORAL TABLET completed ONE [...] tablet active once a day Cathy Lorenzo ADV DISKUS 250-50 MCG/DOSE INHALATION AEROSOL POWDER BREATH [...] atient has been counseled to quit. Omar Stewartshahana social history reviewed E&M revi ewed - no changes required Omar Hernadezrob drug use none Paul Mishra alcohol use, [...] of years as a smoker 40 a Lorrainejoann Mack smoking history, tot al pack/day 1.2 Lorraine Mack cigarette use yes Lorrainejoann alexander smoking status Current every day smoker Chao chaudharirob Mack physical exercise, frequency, days per week no David Segura caffeine use, averag e drinks per day yes David Segura smoking/tobacco cess ation, patient education and counseling yes David Segura number of years as a smoker 40 a David Segura smoking history, tot al pack/day 1.2 David Madrigalros cigarette use yes David Robles os smoking [...] MD social history E&M Lives with fa aelx/friends M arital Status: E thnicity: Smoking History: [...] Hdez smoking history, tot al pack/day 1.2 Anaity Ketty cigarette use yes Siena Hdez smoking status [...] smoking status Current every day smoker D ynes Columba number of grandchildren Bulmaro Riggs MD T [...] use, averag e drinks per day yes Nitza Bailey smoking/tobacco cess ation, patient education and counseling yes Nitza Bailey drug use none Nitza Bailey smoking status Current every day smoker Rosalie mendoza Leo social history reviewed E&M i ewed - no changes required Bulmaro Riggs [...] physical exercise, frequency, days per week no [employer] caffeine use, averag e drinks per day yes [employer] alcohol use, average drinks per day none [facility] smoking status Smoker [facility] FUNCTIONAL STATUS Date Observation Value Provider HRA, [...] [facility] ID [place] MEDICAID (2) Medicaid [id number] ADVANCE DIRECTIVES Name Date DISCUSSED - NO DECISION MADE TREATMENT PLAN Date Name Performer [id number],SOmar i [id number],BOmar i [id number],SOmar i [id number],SOmar i [id number],SOmar i [id number],SOmar i [id number],S, Omar Ahmedza i [id number],S, Omar Ahmedza i [id number],S, Omar Ahmedza i [id number],S, Omar Ahmedza i [id number],S, Omar Ahmedza i [id number],S, Omar Ahmedza i [id number],S, Omar Ahmedza i [id number],B, Omar Ahmedza i [id number],S, Omar Ahmedza i [id number],S, Omar Ahmedza i [id number],S, Omar Ahmedza i [id number],S, Omar Ahmedza i [id number],S, Omar Ahmedza i [id number],S, Omar Ahmedza i [id number],S, Omar Ahmedza i [id number],S, Omar Ahmedza i [id number],S, Omar Ahmedza i [id number],W, Omar Ahmedza i [id number],S, Omar Ahmedza i [id number],S, Omar Ahmedza i [id number],S, Omar Ahmedza i [id number],S, Omar Ahmedza i [id number],W, Omar Ahmedza i [id number],S, Omar Ahmedza i [id number],W, Omar Ahmedza i Telehealth Bobby Nacht Telehealth [...] Cardiology Omar Ahmedzai Cardiology Omar Ahmedzai Cardiology Bulmaro Riggs MD Cardiology Omarcarlos Vargas Cardiology Bulmaro Riggs MD Cardiology Follow up Paul C Beat ty Cardiology Follow up Paul C Beat ty Cardiology Follow up Paul C Beat ty Cardiology Follow up : B P today: 122/72 P rior BP: 118/80 (11/19/2019) Prior 10 Yr Risk Heart Disease: N/A (11/13/2017) Labs Reviewed: Kandi reat: 0.73 (04/24/2008) Paul Chau [facility] Cardiology: B P today: 118/80 P rior [...] tab twice daily David Segura Cardiology David Seguar TeleHealth, 6 MONTH F/U Bulmaro sandoval MD [...] UP Bulmaro hawkins MD Cardiology FOLLOW UP:Denae bishop T josue Riggs MD Cardiology FOLLOW UP :Denae bishop, [...] Tabs (Lisinopril) ..... One tab. daily Orders: Mannie KG (CPT-26977) Bulmaro Riggs MD f/u: H er updated [...] daily [facility]: T he following medications were removed from [...] tricuspid regurgitation. (01/18/2006) Orders: C omplete Echo (CPT-70682) R enal Artery Duplex (CPT-43409) C arotid Duplex Bilateral (CPT-36561) H olter Monitor 24 Hr (CPT-75268) S leep Study (*) Bulmaro Riggs MD needs clearance to [facility] Nuerologist per Dr. Albrecht: T he following medications were removed from the medication list: Lasix 20 Mg Tabs (Furosemide) ..... Once daily Her updated medication list for this problem includes: Accupril 20 Mg Tabs (Quinapril hcl) ..... One tab. daily BP today: 170/98 P rior BP: 148/96 (01/08/2008) Orders: C omplete Echo (CPT-76503) R enal Artery Duplex (CPT-68240) C arotid Duplex Bilateral (CPT-77634) H olter Monitor 24 Hr (CPT-17821) S lee Study (*) Bulmaro Riggs [facility]: T he following medications were removed from [...] sat: 98 (04/21/2008) Orders: C omplete Echo (CPT-88657) R enal Artery Duplex (CPT-08145) Carotid Duplex Bilateral (CPT-82245) H olter Monitor 24 Hr (CPT-64778) S lee Study (*) Bulmaro Riggs [facility]: O rders: C omplete Echo (CPT-27174) R enal Artery Duplex (CPT-88359) C arotid Duplex Bilateral (CPT-42395) H olter Monitor 24 Hr (CPT-74821) S lee Study (*) Bulmaro Riggs MD needs clearance to [facility] Nuerologist per Dr. Albrecht: T he following medications were removed from [...] in the LAD. (06/26/2007) Orders: E KG (CPT-22620) C omplete Echo (CPT-51480) R enal Artery Duplex (CPT-47579) C arotid Duplex Bilateral (CPT-60417) H olter Monitor 24 Hr (CPT-44512) S leep Study (*) C OMPREHENSIVE METABOLIC PANEL W/EGFR (57986) C BC (H/H, RBC, INDICES, WBC, PLT) (0059) Bulmaro Riggs MD office visit: T he [...] ed EKG Bulmaro Riggs MD completed SNOMED-CT: [id number] Physical Exam, Performed: Pulse Exam of Foot Bulmaro Riggs MD completed EKG Bulmaro Riggs MD completed SNOMED-CT: [id number] Current Medications Documented Bulmaro Riggs MD completed EKG Bulmaro Riggs MD completed EKG Bulmaro Riggs MD completed EKG Bulmaro Riggs MD completed EKG Bulmaro Riggs MD completed EKG Bulmaro Riggs MD completed
[2024-08-06 08:06] VITALS: BP 117/81; PULSE 90; RESP 16; TEMP 37.6; O2SAT 99
[2024-08-06 09:24] VITALS: BP 128/67; PULSE 88; RESP 16; O2SAT 98
[2024-08-06 09:31] VITALS: BP 131/74; PULSE 89; RESP 10; O2SAT 96
[2024-08-06] MEDS: LIDOCAINE 1% PF INJ 5 ML VIAL INFILTRATE (09:34)
[2024-08-06] MEDS: BUPivacaine HCL 0.5% 10 ML AMP 5 ML INFILTRATE (09:34)
[2024-08-06 09:38] VITALS: BP 132/79; PULSE 88; RESP 20; O2SAT 97
== END 2024-08-06 09:55 | disposition home or self-care (01) ==
LOC: ASC 07:49
PROVIDERS: PCP Emergency Medicine; Visit Provider Anesthesiology Pain Medicine
PROC: (CPT 64493; principal; 2024-08-06 09:10)
DX: M47.817 Spondylosis without myelopathy or radiculopathy, lumbosacral region (principal); G89.29 Other chronic pain
CPT/HCPCS: 64493 ×2; 64494 ×2; 64495 ×2; 99199

== ENCOUNTER 2024-09-03 10:14 | Day surgery (SDC) | payer OTHER, SELFPAY ==
[2024-08-27 09:34] VITALS: BMI 28.6
--- NOTE | ~2024-09-03 | XR_ITS ---
INTRAOPERATIVE FLUOROSCOPY: CLINICAL HISTORY: 59 years old Female; DIAG/PROG MARCIA L3,L4,L5 MEDIAL BRANCH/DORSAL RAMUS NERVE BLK PROCEDURE COMMENTS: Limited intraoperative fluoroscopy of the lumbar spine was performed. CUMULATIVE DOSE: mGy FLUOROSCOPY TIME: seconds FINDINGS/IMPRESSION: Please refer to operative note for further details. Reviewed, dictated and finalized at location A.
--- OUTSIDE RECORDS SUMMARY | 2024-09-03 10:27 | XMS_ITS | Clinical Summary ---
Author Organization [facility] Address [address] [place] [address] Care Team Providers Care Liner Helper Name Role Phone Jorge Luis Hill MD Primary Care Provider [phone] Source Comments [facility],non-owned Affiliates and Associated Physician Practices is amultiple site organization consisting of ambulatory clinics and hospital sitesin [place], [place], [place] and [place]. This disclosure is being madepursuant to the Care Everywhere program and may not contain all information available regarding this patient. Last updated 17.[facility] Allergies No known active allergies Medications * [...] naloxone HCl (Narcan) 4 MG/0.1ML nasal spray [employer] (forty) sprays into the nose as [...] on file Legal Sex Female 7:26 PM DIE CAST DIE MAKER Gender Identity Not on file Sexual Orientation Not on file Last Filed Vital Signs Vital Sign Reading Time Taken Comments Blood Pressure 155/92 03/24/2023 2:17 PM DIE CAST DIE MAKER Pulse 101 03/24/2023 2:17 PM DIE CAST DIE MAKER Temperature 36.7 C (98 F) 03/24/2023 2:17 PM DIE CAST DIE MAKER Respiratory Rate 18 03/24/2023 2:17 PM DIE CAST DIE MAKER Oxygen Saturation 96% 03/24/2023 2:17 PM DIE CAST DIE MAKER Inhaled Oxygen Concentration - - Weight 84.3 kg (185 lb 12.8 oz) 03/24/2023 2:17 PM DIE CAST DIE MAKER Height 162.6 cm (5' 4) 03/24/2023 2:17 PM DIE CAST DIE MAKER Body Mass Index 31.89 03/24/2023 2:17 PM DIE CAST DIE MAKER Plan of Treatment Upcoming Encounters Date Type Department Care Team (Late st Contact Info) Description 10/11/2024 1:00 PM CDT Office Visit [facility] - Endocrinology [address] [place] [address], [place] [address] Mee Yates MD [address] [place] [address] [place] [address] Health Maintenance Due Date Last Done Comments COLOGUARD (AGES 45-75) - COLON CA SCREENING 1965 COLON MONITORING 1965 COLONOSCOPY - COLON CA SCREENING 1965 CT COLONOGRAPHY - COLON CA SCREENING 1965 Colorectal Cancer Screening 1965 FIT - COLON CA SCREENING 1965 FLEX SIG - COLON CA SCREENING 1965 HIV SCREENING 02/04/1980 HEPATITIS C SCREENING 01/30/1983 HEPATITIS B VACCINE (1 of 3 - 19+ 3-dose series) 02/04/1984 PNEUMOCOCCAL VACCINE 50+ (1 of 2 - PCV) 02/04/1984 PAP SMEAR 1986 ZOSTER VACCINE (1 of 2) 2015 MAMMOGRAM [...] patient's age to complete this topic Insurance [facility] Care Teams Liner Helper Relationship Specialty Start Date End Date Jorge Luis Hill MD [address] [place] [address] [address] [place] [address] PCP - General 02/10/17
--- OUTSIDE RECORDS SUMMARY | 2024-09-03 10:27 | XMS_ITS | Referral Summary ---
Author Organization [facility] Address [address] [facility] [address] [place] [address] Phone Care Team Providers Care Manager Alliance Name Role Phone Jorge Luis Hill MD Primary Care Provider [phone] Encounters Date Type Department Care Team Description 07/24/2024 3:38 PM CDT - 07/24/2024 11:59 PM CDT Hospital Encounter [facility] [address] [place] [address] Discharge Disposition: Discharge to home or self care 07/24/2024 3:20 PM CDT Office Visit [facility] Infectious Diseases [address] [place] [address] Cadence Cavazos NP Osteonecrosis of jaw (HCC) (Primary Dx); Acute kidney injury 06/13/2024 3:30 PM CDT Office Visit [facility] Pulmonary at [address] [place] [address] Jany Hernandez NP Chronic respiratory failure with hypoxia, on home O2 therapy (HCC) (Primary Dx); Centrilobular emphysema (HCC); Pulmonary nodules; Cigarette nicotine dependence without complication from Last 3 Months Allergies No known [...] mg total) by mouth nightly 0 Active cholecalciferol (VITAMIN D-3) 91724 unit tablet Take 1 tablet (50,000 Units total) by mouth once a week 8 Active dicyclomine (BENTYL) 10 mg capsule Take 1 capsule (10 mg total) by mouth 4 (four) times a day Active furosemide (LASIX) 40 mg tablet 2 Active naloxone (NARCAN) 4 mg/actuation spray,non-aeroso l 2 Active diltiaZEM CD (CARDIZEM CD) 360 mg 24 hr capsule Take 1 capsule (360 mg total) by mouth daily 2 Active escitalopram (LEXAPRO) 20 mg tablet Take 1 tablet (20 mg total) by mouth daily 2 Active metoclopramide (REGLAN) 10 mg tabletIndication s:nausea preventative Take 1 tablet (10 mg total) by mouth 3 (three) times a day before meals Active amitriptyline (ELAVIL) 50 mg tablet 3 Active omeprazole (PriLOSEC) 40 mg capsule 3 Active rOPINIRole (REQUIP) 0.5 mg tablet TAKE 1 TABLET BY MOUTH EVERY NIGHT AT BEDTIME WITH 1 MG TABLET *EMERGENCY REFILL* 4 Active albuterol HFA (PROVENTIL HFA,VENTOLIN HFA,PROAIR HFA) 90 mcg/actuation inhaler Inhale 1 puff every 4 (four) hours as needed for wheezing 1 each 4 Active tiotropium bromide (SPIRIVA RESPIMAT) 2.5 mcg/actuation inhaler Inhale 2 puffs daily 1 each 4 Active Additional Information Patient not taking.Reported on 06/13/2024 loratadine (CLARITIN) 10 mg tablet Take 1 tablet (10 mg total) by mouth daily 30 tablet 4 Active Symbicort 160-4.5 mcg/actuation inhaler INHALE TWO (2) PUFFS BY MOUTH TWICE DAILY. RINSE MOUTH OUT WITH WATER AFTER EACH USE. DO NOT SWALLOW 10.2 g 10 5 Active Farxiga 10 mg tabletIndication s:Type 2 diabetes mellitus with hyperglycemia, without long-term current use of insulin (HCC) TAKE 1 TABLET BY MOUTH DAILY 30 tablet 10 5 Active fluticasone propionate (FLONASE) 50 mcg/actuation nasal spray 4 Active ibuprofen (ADVIL,MOTRIN) 600 mg tablet 5 Active Linzess 290 mcg capsule [address] (PROTONIX) 40 mg EC tablet pantoprazole 40 mg tablet,delayed release (DR/EC) Active tiotropium bromide (SPIRIVA RESPIMAT) 2.5 mcg/actuation inhaler Inhale 2 puffs daily 1 each 5 Active montelukast (SINGULAIR) 10 mg tablet Take 1 tablet (10 mg total) by mouth nightly 30 tablet 5 026 Active albuterol 2.5 mg /3 mL (0.083 %) nebulizer solution Take 3 mL (2.5 mg total) by nebulization every 6 (six) hours as needed for wheezing or shortness of breath 360 mL 5 Active metFORMIN (GLUCOPHAGE) 500 mg tabletIndication s:Type 2 diabetes mellitus with hyperglycemia, without long-term current use of insulin (HCC) TAKE 1 TABLET BY MOUTH TWICE DAILY *PATIENT MUST CONTACT OFFICE FOR FURTHER REFILLS* 90 tablet 5 Active gabapentin (NEURONTIN) 300 mg capsuleIndicatio ns:Type 2 diabetes mellitus with hyperglycemia, without long-term current use of insulin (HCC) TAKE 1 CAPSULE BY MOUTH 3 TIMES DAILY 90 capsule 5 Active Active Problems Problem Noted Date Diagnosed Date Cigarette nicotine dependence without complicati on 06/14/2024 Assessment & Plan (06/14/2024 9:22 AM CDT): She continues to smoke about 4-5 cigarettes per day. - Smoking cessation counseling and techniques reviewed at length - Avoid triggers and use distraction techniques - Information given regarding [place] Tobacco Quit line: [id number] for free services - 5 minutes spent [...] echocardiogram, Assessment & Plan (02/13/2024 11:58 AM SUPERCALENDER OPERATOR): Continue supplemental oxygen for saturations 90% I have advised her to get a home pulse oximeter and bring it to her next visit for comparison She has a visit with our maintenance man upcoming and will likely have an echocardiogram. [...] (01/03/2022): Added automatically from request for surgery [id number] Smoking 12/14/2021 Assessment & Plan (12/19/2021 11:55 [...] months Assessment & Plan (01/14/2022 11:03 AM SUPERCALENDER OPERATOR): - Pt has completed 4 weeks of [...] tract. If no surgical plan, Resume diet. 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 Pain control with prn tylenol [...] care Assessment & Plan (02/13/2024 11:59 AM SUPERCALENDER OPERATOR): Continue Symbicort twice daily Continue Spiriva twice [...] 12/13/2021 Assessment & Plan (02/13/2024 11:57 AM SUPERCALENDER OPERATOR): Continue PAP with all sleep She is aware of the risks of uncorrected sleep apnea Assessment & Plan (12/21/2021 12:03 PM CDT): Exacerbated by BMI 42. Alert, oriented. Outpatient PSG Assessment & Plan (12/13/2021 11:24 AM CDT): Exacerbated by BMI 42. Alert, oriented. Morbid obesity with BMI of 40.0-44.9, adult 11/27 Assessment & Plan (12/14/2021 3:10 PM CDT): BMI 42.07, 104.3kg this admit. 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 Assessment & Plan (12/13/2021 10:25 AM CDT): BMI 42.07, 104.3kg this admit. 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 Pancreatic cyst 01/10/2020 Overview (01/10/2020): Added automatically from request for surgery [id number] Resolved Problems Problem Noted Date Diagnosed Date Resolved Date Nicotine dependence, cigarettes, in remission 02/13/20 24 06/14/2024 Assessment & Plan (02/13/2024 11:57 AM SUPERCALENDER OPERATOR): Quit in November of 2023 She is [...] often do you attend chur ch or rastafarian services? Never 12/22/2021 Do you belong to any clubs o r organizations such as taoist groups, unions, fraternal or athletic groups, or [...] on file Legal Sex Female 1:34 AM SUPERCALENDER OPERATOR Gender Identity Not on file Sexual Orientation Not on file Last Filed Vital Signs Vital Sign Reading Time Taken Comments Blood Pressure 90/58 07/24/2024 3:12 PM CDT Pulse 85 07/24/2024 3:12 PM CDT Temperature 36.9 C (98.5 F) 07/24/2024 3:12 PM CDT Respiratory Rate 18 02/12/2024 2:42 PM SUPERCALENDER OPERATOR Oxygen Saturation 97% 07/24/2024 3:12 PM CDT Inhaled Oxygen Concentration - - Weight 86 kg (189 lb 9.6 oz) 06/13/2024 3:22 PM CDT Height 162 cm (5' 3.78) 07/24/2024 3:12 PM CDT Body Mass Index 32.54 06/13/2024 3:22 PM CDT Plan of Treatment Not on file Medical Devices Implanted Type Area Tool Crib Lead Device Identifier Shelf Expiration Date Model / Serial / Lot Shunt Implanted:Qty: 2 Shunt Brain Xcel[employer]lew[employer] Gregg Microvascular 3.5mm Ring Pin Protective Cover Jaw Assembly Latex Free [id number] - [id number] Implanted:Qty: 1 on 2022 by Ricci Shelton MD at [facility] Mandible [employer] Mari [id number] 04/12/2026 [id number] / / [id number] Álvaro Craniomaxillofaci al 2mm Primary Reconstruction Customize Mandible Bebeto Plate Bone [id number] - [id number] Implanted:Qty: 1 on 2022 by Ricci Shelton MD at [facility] Mandible Álvaro Craniomaxillofacial [id number] / / Álvaro Craniomaxillofaci al Leibinger [place] 2 2.3mm 6mm Lock Cross Pin Maxillofacial [id number] - [id number] Implanted:Qty: 1 on 2022 by Ricci Shelton MD at [facility] Mandible Álvaro Craniomaxillofacial [id number] / / [place] Craniomaxillofaci al Leibinger [place] 2 2.3mm 8mm Lock Cross Pin Maxillofacial [id number] - [id number] Implanted:Qty: 2 on 2022 by Ricci Shelton MD at [facility] Mandible Álvaro Craniomaxillofacial [id number] / / Álvaro Craniomaxillofaci al Leibinger [place] 2 2.3mm 12mm Lock Cross Pin Maxillofacial [id number] - [id number] Implanted:Qty: 3 on 2022 by Ricci Shleton MD at [facility] Mandible [place] Craniomaxillofacial [id number] / / [place] Craniomaxillofaci al Leibinger [place] 2 2mm 6mm Self Tap Cross Pin Maxillofacial 50 - [id number] Implanted:Qty: 4 on 2022 by Ricci Shelton MD at [facility] Mandible [place] Craniomaxillofacial 50 / / [place] Craniomaxillofaci al Leibinger [place] 2 2mm 6mm Lock Cross Pin Maxillofacial Screw 50 - [id number] Implanted:Qty: 1 on 2022 by Ricci Shelton MD at [facility] Mandible [place] Craniomaxillofacial 50 / / Explanted Type Area Tool Crib Lead Device Identifier Shelf Expiration Date Model / Serial / Lot [place] Craniomaxillofaci al Leibinger [place] 2 2mm 8mm Self Tap Cross Pin Maxillofacial 50 - [id number] Explanted:Qty: 4 on 2022 at [facility] Mandible [place] Craniomaxillofacial 50 / / Álvaro Craniomaxillofaci al Leibinger [place] 2 2.3mm 8mm Self Tap Cross Pin Maxillofacial [id number] - [id number] Explanted:Qty: 1 on 2022 at [facility] Mandible [place] Craniomaxillofacial [id number] / / [employer] Probe Doppler 17.4cm Standard Cuff Implantable 20mhz Latex Free Sterile Microvascular Anastomoses Carmen [id number] - [id number] Implanted:Qty: 1 on 2022 by Ricci Shelton MD at [facility] Explanted:Qty: 1 on 02/14/2022 by Marie Parr PA Right: Neck [employer] [id number] 10/27/2024 [id number] / / [id number] Procedures Procedure Name Priority Date/Time Associated Diagnosis [...] 3:38 PM CDT Osteonecrosis of jaw (HCC) CT LUNG CANCER SCREENING Schedule Routine, Read Routine (OP Routine) 03/25/2024 12:46 PM SUPERCALENDER OPERATOR Nicotine dependence, cigarettes, uncomplicated POCT HEMOGLOBIN A1C Routine 08/07/2023 3 :17 PM CDT Type 2 diabetes mellitus with hyperglycemia, without long-term current use of insulin (HCC) LIPID PANEL STAT 02/15/2022 2:00 PM SUPERCALENDER OPERATOR HEPATITIS PANEL, ACUTE Routine 12/15/2021 11:19 PM [...] BLOOD ORDERABLES Final Result Performing Organization Address City/State/[facility] [place] Phone Number [facility] Department of Laboratories [place], [place] [id number] * (ABNORMAL) eGFR (07/24/2024 3:38 PM CDT) [...] CDT 07/24/2024 6:07 PM CDT Cadence Cavazos NP LAB BLOOD ORDERABLES Final Result [facility] [place] [address] * Differential, auto (07/24/2024 3:38 PM CDT) Neutrophil abs 5.59 1.50 - 6.50 K/cumm Imm gran abs 0.03 0.00 - 0.10 K/cumm [facility] Lymphocyte abs 1.23 0.80 - 3.30 K/cumm [facility] Monocyte abs 0.58 0.20 - 0.80 K/cumm [facility] Eosinophil abs 0.07 0.00 - 0.50 K/cumm [facility] Basophil abs 0.04 0.00 - 0.10 K/cumm [facility] Neutrophil pct 74.2 % [facility] Comment: Interpretive Data Percent cell count reference ranges are not reported, since discordance with absolute values may lead to misinterpretation of CBC data. Current Interpretive Data was last revised on 2017. Imm gran pct 0.4 % [facility] Comment: Interpretive Data Percent cell count reference ranges are not reported, since discordance with absolute values may lead to misinterpretation of CBC data. Current Interpretive Data was last revised on 2017. Lymphocyte pct 16.3 % [facility] Comment: Interpretive Data Percent cell count reference ranges are not reported, since discordance with absolute values may lead to misinterpretation of CBC data. Current Interpretive Data was last revised on 2017. Monocyte pct 7.7 % [facility] Comment: Interpretive Data Percent cell count reference ranges are not reported, since discordance with absolute values may lead to misinterpretation of CBC data. Current Interpretive Data was last revised on 2017. Eosinophil pct 0.9 % [facility] Comment: Interpretive Data Percent cell count reference ranges are not reported, since discordance with absolute values may lead to misinterpretation of CBC data. Current Interpretive Data was last revised on 2017. Basophil pct 0.5 % [facility] Comment: Interpretive Data Percent cell count reference ranges are not reported, since discordance with absolute values may lead to misinterpretation of CBC data. Current Interpretive Data was last revised on 2017. Blood 07/24/2024 3:38 PM CDT 07/24/2024 6:03 PM CDT Cadence Cavazos NP LAB BLOOD ORDERABLES Final Result [facility] [place] [address] * (ABNORMAL) Comprehensive metabolic panel, without glucose (Outreach) (07/24/2024 3:38 PM CDT) Sodium 133(L) 135 - 145 mmol/L Potassium, pl 4.1 3.3 - 4.9 mmol/L [facility] Chloride 90(L) 97 - 110 mmol/L [facility] CO2 27 22 - 32 mmol/L [facility] Anion gap 16(H) 2 - 15 mmol/L [facility] BUN 21 6 - 25 mg/dL [facility] Creatinine 2.12(H) 0.60 - 1.10 mg/dL [facility] Calcium 9.5 8.5 - 10.3 mg/dL [facility] Protein, pl 7.2 6.5 - 8.5 g/dL [facility] Albumin 4.5 3.5 - 5.0 g/dL [facility] Bilirubin, total 0.2 0.1 - 1.2 mg/dL [facility] Alk phos 83 40 - 130 Units/L [facility] AST 26 10 - 45 Units/L [facility] ALT 10 7 - 45 Units/L [facility] Blood 07/24/2024 3:38 PM CDT 07/24/2024 6:03 PM CDT us Cadence Cavazos NP LAB BLOOD ORDERABLES Final Result [facility] Department [place] [address] * (ABNORMAL) CBC with auto differential (07/24/2024 3:38 PM CDT) WBC 7.54 3.80 - 9.90 K/cumm Hgb 12.1 11.9 - 15.5 g/dL [facility] Hct 36.8 35.6 - 45.5 % [facility] Plt 266 150 - 400 K/cumm [facility] MPV 11.0 9.1 - 12.3 fL [facility] RBC 3.36(L) 3.90 - 5.20 M/cumm [facility] MCV 109.5(H) 81.3 - 96.4 fL [facility] MCH 36.0(H) 27.1 - 33.3 pg [facility] MCHC 32.9 32.3 - 35.7 g/dL [facility] RDW CV 14.3 11.1 - 14.9 % [facility] RDW SD 58.0(H) 35.7 - 48.1 fL [facility] NRBC abs 0.00 0.00 - 0.01 K/cumm [facility] Blood 07/24/2024 3:38 PM CDT 07/24/2024 6:03 PM CDT Cadence Cavazos NP LAB BLOOD ORDERABLES [place] [address] * Erythrocyte sedimentation rate (07/24/2024 3:38 PM CDT) Erythrocyte sedimentation rate 18 1 - 30 mm/hr Blood 07/24/2024 3:38 PM CDT 07/24/2024 6:03 PM CDT Cadence Cavazos NP LAB BLOOD ORDERABLES Final Result Performing Organization Address [facility] [place] [address] * (ABNORMAL) CRP (acute phase) (07/24/2024 3:38 PM CDT) Pathologist [facility] CRP 10.1(H) <=10.0 mg/L Blood 07/24/2024 3:38 PM CDT 07/24/2024 6:03 PM CDT Cadence Cavazos NP LAB BLOOD ORDERABLES Final Result Performing Organization Address [facility] [place] [address] * CT Lung Cancer Screening (03/25/2024 12:46 PM SUPERCALENDER OPERATOR) Anatomical Region Laterality Modality Chest N/A Computed Tomogra phy 03/26/2024 9:54 AM SUPERCALENDER OPERATOR Narrative 03/26/2024 10:03 AM SUPERCALENDER OPERATOR EXAM DESCRIPTION: CT LUNG CANCER SCREENING REASON [...] Almita Miller D.O. PS: PS Report ID: [id number] Reading Location: [id number] Procedure Note Angela Almita Adonis, DO - 03/26/2024 EXAM DESCRIPTION: CT LUNG [...] Almita Miller D.O. PS: PS Report ID: [id number] Reading Location: [id number] Ethan Leung MD IMG CT PROCEDURES Final Result * (ABNORMAL) POCT hemoglobin A1c (08/07/2023 3:17 PM CDT) Hemoglobin A1C, POC 5.9 % Capillary blood 08/07/2023 3 :17 PM CDT Briana Santana MD POINT OF CARE TEST ORDERABLES Fi nal Result * (ABNORMAL) Lipid panel (02/15/2022 2:00 PM SUPERCALENDER OPERATOR) Cholesterol 161 30 - 199 mg/dL [facility] Comment: Interpretive Data Ages < or = [...] revised on 2017. Triglycerides 253(H) <=149 mg/dL [facility] Comment: Interpretive Data Ages < or [...] revised on 2017. HDL 42 >=40 mg/dL [facility] Comment: Interpretive Data Ages < or [...] on 2017. LDL, calculated 68 <=129 mg/dL [facility] Comment: Interpretive Data Ages < or [...] revised on 2017. Non-HDL Cholesterol 119 mg/dL [facility] Comment: Interpretive Data Ages < or [...] last revised on 2017. Chol/HDL ratio 4 [facility] Blood 02/15/2022 2:00 PM SUPERCALENDER OPERATOR 02/15/2022 5:52 PM SUPERCALENDER OPERATOR us Neri Loco MD LAB BLOOD ORDERABLES Fi nal Result Performing Organization Address City/[facility] Co de Phone Number [facility] [place] [address] * Hepatitis panel, acute (12/15/2021 11:19 PM CDT) Hep A IgM Nonreactive Nonreactive Comment: Interpretive Data: If Hep A IgM Ab is reported as Equivocal, a new sample should be drawn in two weeks for testing. Current interpretive data was last revised on 19. Hep B core IgM Nonreactive Nonreactive [facility] Comment: Interpretive Data If HepB Core IgM Ab is reported as Equivocal, a new sample should be drawn in two weeks for testing. Current interpretive data was last revised on 19. Hep C Ab Nonreactive Nonreactive [facility] Comment:Antibodies to HCV no t detected. Does NOT exclude the possibility of recent exposure to HCV. HepBsAg Nonreactive Nonreactive [facility] Blood 12/15/2021 11:1 9 PM CDT 12/16/2021 12:30 AM CDT us Orly Fine MD LAB MICROBIOLOGY - GENERAL O RDERABLES Edited Result - Final [facility] [place] [address] from Last 3 Months or Most Recently Relevant to Health Maintenance Additional Health Concerns Infection Onset Date Last Indicated MDR gram neg/ESBL 2022 2022 Insurance [facility] Advance Directives For more information, please contact: [phone] * Full Code (Latest Code Status on File) Date Activated Date Inactivated Comments 04/26/2022 9:48 PM 05/03/2022 6:39 PM * Full Code Date Activated Date Inactivated Comments 2022 9:27 PM 02/14/2022 9:56 PM * Full Code Date Activated Date Inactivated Comments 12/13/2021 5:40 PM 12/21/2021 6:14 PM * Full Code Date Activated Date Inactivated Comments 01/22/2020 1:18 PM 01/22/2020 10:15 PM Care Teams Manager Alliance Relationship Specialty Start Date End Date Jorge Luis Hill MD PCP - General 04/30/18
--- OUTSIDE RECORDS SUMMARY | 2024-09-03 10:27 | XMS_ITS | Clinical Summary ---
Author Organization [facility] Address [address] [place] [address] Phone Care Team Providers Care Train Control Technician Name Role Phone Jorge Luis Hill MD Primary Care Provider [phone] Allergies No known active allergies Medications aspirin [...] mouth nightly 0 Active cholecalciferol (VITAMIN D-3) 42776 unit tablet Take 1 tablet (50,000 Units [...] Inhale 2 puffs daily 1 each 11 5 Active montelukast (SINGULAIR) 10 mg tablet Take 1 tablet (10 mg total) by mouth nightly 30 tablet 11 5 026 Active albuterol 2.5 mg /3 [...] Information given regarding [place] Tobacco Quit line: [id number] for free services - 5 minutes spent [...] echocardiogram, Assessment & Plan (02/13/2024 11:58 AM CONDUIT HELPER): Continue supplemental oxygen for saturations 90% I have advised her to get a home pulse oximeter and bring it to her next visit for comparison She has a visit with our clinical academic allergist upcoming and will likely have an echocardiogram. [...] (01/03/2022): Added automatically from request for surgery [id number] Smoking 12/14/2021 Assessment & Plan (12/19/2021 11:55 [...] months Assessment & Plan (01/14/2022 11:03 AM CONDUIT HELPER): - Pt has completed 4 weeks of [...] tract. If no surgical plan, Resume diet. 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 Pain control with prn tylenol [...] care Assessment & Plan (02/13/2024 11:59 AM CONDUIT HELPER): Continue Symbicort twice daily Continue Spiriva twice [...] 12/13/2021 Assessment & Plan (02/13/2024 11:57 AM CONDUIT HELPER): Continue PAP with all sleep She is aware of the risks of uncorrected sleep apnea Assessment & Plan (12/21/2021 12:03 PM CDT): Exacerbated by BMI 42. Alert, oriented. Outpatient PSG Assessment & Plan (12/13/2021 11:24 AM CDT): Exacerbated by BMI 42. Alert, oriented. Morbid obesity with BMI of 40.0-44.9, adult 11/27 Assessment & Plan (12/14/2021 3:10 PM CDT): BMI 42.07, 104.3kg this admit. 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 Assessment & Plan (12/13/2021 10:25 AM CDT): BMI 42.07, 104.3kg this admit. 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 Pancreatic cyst 01/10/2020 Overview (01/10/2020): Added automatically from request for surgery [id number] Resolved Problems Problem Noted Date Diagnosed Date Resolved Date Nicotine dependence, cigarettes, in remission 02/13/20 24 06/14/2024 Assessment & Plan (02/13/2024 11:57 AM CONDUIT HELPER): Quit in November of 2023 She is due for annual CT chest in February of 2023 Encounters Date Type Department Care Team Description 07/24/2024 3:38 PM CDT - 07/24/2024 11:59 PM CDT Hospital Encounter [facility] [address] [place] [address] Discharge Disposition: Discharge to home or self care 07/24/2024 3:20 PM CDT Office Visit [facility] Infectious Diseases [address] [place] [address] Cadence Cavazos, BEVERLY Osteonecrosis of jaw (HCC) (Primary Dx); Acute kidney injury 06/13/2024 3:30 PM CDT Office Visit [facility] Pul[facility] at [address] [place] [address] Jany Hernandez NP Chronic respiratory failure with hypoxia, on home O2 therapy (HCC) (Primary Dx); Centrilobular emphysema (HCC); Pulmonary nodules; Cigarette nicotine dependence without complication from Last 3 Months Immunizations Immunization Administration Dates Next Due Influenza, Quadrivalent, Spl it, Preservative Free, Intramuscular 12/28/2022 Pfizer Sars-Cov-2 Bivalent Vaccination (12+ YRS) 03/02/2022 Surgical History Surgery Date Site/Laterality Comments SECTION 1984, 1988 TOTAL ABDOMINAL HYSTERECTOMY W/ BILATERAL SALPINGOOPHORECTOMY 02/27/1995 - 02/27/1996 SPORTS TEAM MANAGER SHUNT INSERTION 02/27/2010 - 02/26/2011 COLONOSCOPY [...] Comments Father Elsa Hines Alive Maternal Grandmother Sreekanht nascimento Alive Mother Mother's Sister Faviola hebert [...] How often do you attend chur or orthodox services? Never 12/22/2021 Do you belong to any clubs o r organizations such as mosque groups, unions, fraternal or athletic groups, or [...] place to sleep or slept in a usp (including now)? No 12/22/2021 Personal Safety Answer Date Recorded Getting School Help Needed Denies 02/11 Comments No Sex and Gender Information Value Date Recorded Sex Assigned at Not on file Legal Sex Female 1:34 AM CONDUIT HELPER Gender Identity Not on file Sexual Orientation Not on file Obstetrics History Last Filed Vital Signs Vital Sign Reading Time Taken Comments Blood Pressure 90/58 07/24/2024 3:12 PM CDT Pulse 85 07/24/2024 3:12 PM CDT Temperature 36.9 C (98.5 F) 07/24/2024 3:12 PM CDT Respiratory Rate 18 02/12/2024 2:42 PM CONDUIT HELPER Oxygen Saturation 97% 07/24/2024 3:12 PM CDT [...] 2024 12/28/2022, 01/10/2022, 03/05/2021 eGFR 07/24/2025 07/24/2024, 06/0 07/2023, 07/19/2023, Additional history exists DTaP/Tdap/Td Vaccine (2 - Td or Tdap) 12/16/2029 12/17/2019 Hepatitis C Screening Completed 12/15/2021 Medical Devices Implanted Type Area Natural Resources Engineer Device Identifier Shelf Expiration Date Model / Serial / Lot Shunt Implanted:Qty: 2 Shunt Brain Leikr Mari Norton Microvascular 3.5mm Ring Pin Protective Cover Jaw Assembly Latex Free [id number] - [id number] Implanted:Qty: 1 on 2022 by Ricci Shelton MD at [facility] Mandible Leikr Mari [id number] 04/12/2026 [id number] / / [id number] [place] Craniomaxillofaci al 2mm Primary Reconstruction Customize Mandible Bebeto Plate Bone [id number] - [id number] Implanted:Qty: 1 on 2022 by Ricci Shelton MD at [facility] Mandible Álvaro Craniomaxillofacial [id number] / / Álvaro Craniomaxillofaci al Leibinger [place] 2 2.3mm 6mm Lock Cross Pin Maxillofacial 50 - [id number] Implanted:Qty: 1 on 2022 by Ricci Shelton MD at [facility] Mandible [place] Craniomaxillofacial 50 / / Álvaro Craniomaxillofaci al Leibinger [place] 2 2.3mm 8mm Lock Cross Pin Maxillofacial [id number] - [id number] Implanted:Qty: 2 on 2022 by Ricci Shelton MD at [facility] Mandible [place] Craniomaxillofacial [id number] / / Álvaro Craniomaxillofaci al Leibinger [place] 2 2.3mm 12mm Lock Cross Pin Maxillofacial [id number] - [id number] Implanted:Qty: 3 on 2022 by Ricci Shelton MD at [facility] Mandible Álvaro Craniomaxillofacial [id number] / / Álvaro Craniomaxillofaci al Leibinger [place] 2 2mm 6mm Self Tap Cross Pin Maxillofacial 50 - [id number] Implanted:Qty: 4 on 2022 by Ricci Shelton MD at [facility] Mandible [place] Craniomaxillofacial 50 / / Álvaro Craniomaxillofaci al Leibinger [place] 2 2mm 6mm Lock Cross Pin Maxillofacial Screw 50 - [id number] Implanted:Qty: 1 on 2022 by Ricci Shelton MD at [facility] Mandible [place] Craniomaxillofacial / / Explanted Type Area Natural Resources Engineer Device Identifier Shelf Expiration Date Model / Serial / Lot [place] Craniomaxillofaci al Edebinger [place] 2 2mm 8mm Self Tap Cross Pin Maxillofacial 50- - [id number] Explanted:Qty: 4 on 2022 at [facility] Mandible Álvaro Craniomaxillofacial 50 / / [place] Craniomaxillofaci al Edebinger [place] 2 2.3mm 8mm Self Tap Cross Pin Maxillofacial [id number] - [id number] Explanted:Qty: 1 on 2022 at [facility] Mandible [place] Craniomaxillofacial [id number] / / [employer] Probe Doppler 17.4cm Standard Cuff Implantable 20mhz Latex Free Sterile Microvascular Anastomoses [place] [id number] - [id number] Implanted:Qty: 1 on 2022 by Ricci Shelton MD at [facility] Explanted:Qty: 1 on 02/14/2022 by Marie Parr PA Right: Neck [employer] [id number] 10/27/2024 [id number] / / [id number] Procedures Procedure Name Priority Date/Time Associated Diagnosis [...] Read Routine (OP Routine) 03/25/2024 12:46 PM CONDUIT HELPER Nicotine dependence, cigarettes, uncomplicated POCT HEMOGLOBIN A1C Routine 08/07/2023 3 :17 PM CDT Type 2 diabetes mellitus with hyperglycemia, without long-term current use of insulin (HCC) LIPID PANEL STAT 02/15/2022 2:00 PM CONDUIT HELPER HEPATITIS PANEL, ACUTE Routine 12/15/2021 11:19 PM [...] Cavazos NP LAB BLOOD ORDERABLES Final Result [facility] [place] [address] * (ABNORMAL) eGFR (07/24/2024 3:38 PM CDT) Pathologist [facility] eGFR 26(L) >=60 mL/min/1. 73 m2 Comment: [...] Cavazos NP LAB BLOOD ORDERABLES Final Result [facility] [place] [address] * Differential, auto (07/24/2024 3:38 PM CDT) [facility] Neutrophil abs 5.59 1.50 - 6.50 K/cumm Imm gran abs 0.03 0.00 - 0.10 K/cumm [facility] Lymphocyte abs 1.23 0.80 - 3.30 K/cumm [facility] Monocyte abs 0.58 0.20 - 0.80 K/cumm [facility] Eosinophil abs 0.07 0.00 - 0.50 K/cumm [facility] Basophil abs 0.04 0.00 - 0.10 K/cumm [facility] Neutrophil pct 74.2 % [facility] Comment: Interpretive Data Percent cell count reference ranges are not reported, since discordance with absolute values may lead to misinterpretation of CBC data. Current Interpretive Data was last revised on 2017. Imm gran pct 0.4 % [facility] Comment: Interpretive Data Percent cell count reference ranges are not reported, since discordance with absolute values may lead to misinterpretation of CBC data. Current Interpretive Data was last revised on 2017. Lymphocyte pct 16.3 % [facility] Comment: Interpretive Data Percent cell count reference ranges are not reported, since discordance with absolute values may lead to misinterpretation of CBC data. Current Interpretive Data was last revised on 2017. Monocyte pct 7.7 % [facility] Comment: Interpretive Data Percent cell count reference ranges are not reported, since discordance with absolute values may lead to misinterpretation of CBC data. Current Interpretive Data was last revised on 2017. Eosinophil pct 0.9 % [facility] Comment: Interpretive Data Percent cell count reference ranges are not reported, since discordance with absolute values may lead to misinterpretation of CBC data. Current Interpretive Data was last revised on 2017. Basophil pct 0.5 % [facility] Comment: Interpretive Data Percent cell count reference ranges are not reported, since discordance with absolute values may lead to misinterpretation of CBC data. Current Interpretive Data was last revised on 2017. Blood 07/24/2024 3:38 PM CDT 07/24/2024 6:03 PM CDT Cadence Cavazos FRUIT BUYER LAB BLOOD ORDERABLES Final Result [facility] [place] [address] * (ABNORMAL) Comprehensive metabolic panel, without glucose (Outreach) (07/24/2024 3:38 PM CDT) Sodium 133(L) 135 - 145 mmol/L Potassium, pl 4.1 3.3 - 4.9 mmol/L [facility] Chloride 90(L) 97 - 110 mmol/L [facility] CO2 27 22 - 32 mmol/L [facility] Anion gap 16(H) 2 - 15 mmol/L [facility] BUN 21 6 - 25 mg/dL [facility] Creatinine 2.12(H) 0.60 - 1.10 mg/dL [facility] Calcium 9.5 8.5 - 10.3 mg/dL [facility] Protein, pl 7.2 6.5 - 8.5 g/dL [facility] Albumin 4.5 3.5 - 5.0 g/dL [facility] Bilirubin, total 0.2 0.1 - 1.2 mg/dL [facility] Alk phos 83 40 - 130 Units/L [facility] AST 26 10 - 45 Units/L [facility] ALT 10 7 - 45 Units/L [facility] Blood 07/24/2024 3:38 PM CDT 07/24/2024 6:03 PM CDT Cadence Cavazos FRUIT BUYER LAB BLOOD ORDERABLES Final Result [facility] [place] [address] * (ABNORMAL) CBC with auto differential (07/24/2024 3:38 PM CDT) WBC 7.54 3.80 - 9.90 K/cumm Hgb 12.1 11.9 - 15.5 g/dL [facility] Hct 36.8 35.6 - 45.5 % [facility] Plt 266 150 - 400 K/cumm [facility] MPV 11.0 9.1 - 12.3 fL [facility] RBC 3.36(L) 3.90 - 5.20 M/cumm [facility] MCV 109.5(H) 81.3 - 96.4 fL [facility] MCH 36.0(H) 27.1 - 33.3 pg [facility] MCHC 32.9 32.3 - 35.7 g/dL [facility] RDW CV 14.3 11.1 - 14.9 % [facility] RDW SD 58.0(H) 35.7 - 48.1 fL [facility] NRBC abs 0.00 0.00 - 0.01 K/cumm [facility] Blood 07/24/2024 3:38 PM CDT 07/24/2024 6:03 PM CDT Cadence Cavazos NP LAB BLOOD ORDERABLES Final Result Performing Organization Address [facility] de Phone Number [facility] [place] [address] * Erythrocyte sedimentation rate (07/24/2024 3:38 PM CDT) Erythrocyte sedimentation rate 18 1 - 30 mm/hr Blood 07/24/2024 3:38 PM CDT 07/24/2024 6:03 PM CDT Cadence Cavazos NP LAB BLOOD ORDERABLES Final Result Performing Organization Address [facility] [place] [address] * (ABNORMAL) CRP (acute phase) (07/24/2024 3:38 PM CDT) CRP 10.1(H) <=10.0 mg/L Blood 07/24/2024 3:38 PM CDT 07/24/2024 6:03 PM CDT Cadence Cavazos NP LAB BLOOD ORDERABLES Final Result Performing Organization Address [facility] [place] [address] * CT Lung Cancer Screening (03/25/2024 12:46 PM CONDUIT HELPER) Anatomical Region Laterality Modality Chest N/A Computed Tomogra phy 03/26/2024 9:54 AM CONDUIT HELPER Narrative 03/26/2024 10:03 AM CONDUIT HELPER EXAM DESCRIPTION: CT LUNG CANCER SCREENING REASON [...] Almita Miller D.O. PS: PS Report ID: [id number] Reading Location: [id number] Procedure Note Almita Miller, DO - 03/26/2024 [...] Almita Miller D.O. PS: PS Report ID: [id number] Reading Location: [id number] Ethan Leung MD IMG CT PROCEDURES Final Result * (ABNORMAL) POCT hemoglobin A1c (08/07/2023 3:17 PM CDT) Hemoglobin A1C, POC 5.9 % Capillary blood 08/07/2023 3 :17 PM CDT Briana Santana MD POINT OF CARE TEST ORDERABLES Fi nal Result * (ABNORMAL) Lipid panel (02/15/2022 2:00 PM CONDUIT HELPER) [facility] Signature Cholesterol 161 30 - 199 mg/dL [facility] Comment: Interpretive Data Ages < [...] revised on 2017. Triglycerides 253(H) <=149 mg/dL [facility] Comment: Interpretive Data Ages < [...] revised on 2017. HDL 42 >=40 mg/dL [facility] Comment: Interpretive Data Ages < [...] on 2017. LDL, calculated 68 <=129 mg/dL [facility] Comment: Interpretive Data Ages < [...] revised on 2017. Non-HDL Cholesterol 119 mg/dL [facility] Comment: Interpretive Data Ages < [...] last revised on 2017. Chol/HDL ratio 4 [facility] Blood 02/15/2022 2:00 PM CONDUIT HELPER 02/15/2022 5:52 PM CONDUIT HELPER Neri Loco MD LAB BLOOD ORDERABLES Fi nal Result [facility] [place] [address] * Hepatitis panel, acute (12/15/2021 11:19 PM CDT) Hep A IgM Nonreactive Nonreactive Comment: Interpretive Data: If Hep A IgM Ab is reported as Equivocal, a new sample should be drawn in two weeks for testing. Current interpretive data was last revised on 19. Hep B core IgM Nonreactive Nonreactive [facility] Comment: Interpretive Data If HepB Core IgM Ab is reported as Equivocal, a new sample should be drawn in two weeks for testing. Current interpretive data was last revised on 19. Hep C Ab Nonreactive Nonreactive [facility] Comment:Antibodies to HCV no t detected. Does NOT exclude the possibility of recent exposure to HCV. HepBsAg Nonreactive Nonreactive [facility] Blood 12/15/2021 11:1 9 PM CDT 12/16/2021 12:30 AM CDT us Orly Fine MD LAB MICROBIOLOGY - GENERAL O RDERABLES Edited Result - Final [facility] [place] [address] from Last 3 Months or Most Recently Relevant to Health Maintenance Additional Health Concerns Infection Onset Date Last Indicated MDR gram neg/ESBL 2022 2022 Insurance Advance Directives For more information, please contact: [phone] * Full Code (Latest Code Status on File) Date Activated Date Inactivated Comments 04/26/2022 9:48 PM 05/03/2022 6:39 PM * Full Code Date Activated Date Inactivated Comments 2022 9:27 PM 02/14/2022 9:56 PM * Full Code Date Activated Date Inactivated Comments 12/13/2021 5:40 PM 12/21/2021 6:14 PM * Full Code Date Activated Date Inactivated Comments 01/22/2020 1:18 PM 01/22/2020 10:15 PM Care Teams Train Control Technician Relationship Specialty Start Date End Date Jorge Luis Hill MD PCP - General 04/30/18
--- OUTSIDE RECORDS SUMMARY | 2024-09-03 10:27 | XMS_ITS | Encounter Summary ---
Author Organization [facility] Address [address] [place] [address] Phone Care Team Providers Care Supervisor [place] Name Role Phone Jorge Luis Hill MD Primary Care Provider [phone] Encounter Details Date Type Department Care Team (Late st Contact Info) Description 05/03/2022 Telephone [facility] [address] [address] [address] [place] [address] Janette Holcomb RN Social History Tobacco Use Types Packs/Day Years Used Date Smoking Tobacco: Every Day Cigarettes 0.5 49.5 Started: 1975 Smokeless Tobacco: Never Comments:Formerly smoked [...] often do you attend chur ch or baptism services? Never 12/22/2021 Do you belong to [...] place to sleep or slept in a long-term (including now)? No 12/22/2021 Comments No Sex and Gender Information Value Date Recorded Sex Assigned at Not on file Legal Sex Female 1:34 AM INSOLE STIFFENER Gender Identity Not on file Sexual Orientation Not on file documented as of this encounter Plan of Treatment Not on file documented as of this encounter Visit Diagnoses Not on filedocumented in this encounter Additional Health Concerns Infection Onset Date Last Indicated Resolved Time MDR gram neg/ESBL 2022 2022 documented as of this encounter Care Teams Supervisor [employer] Relationship Specialty Start Date End Date Jorge Luis Hill MD PCP - General 04/30/18 documented as of this encounter
--- OUTSIDE RECORDS SUMMARY | 2024-09-03 10:27 | XMS_ITS | Encounter Summary ---
Author Organization [facility] Address [address] [place] [address] Phone Care Team Providers Care Ribbon Cutter Name Role Phone Jorge Luis Hill MD Primary Care Provider [phone] Encounter Details Date Type Department Care Team (Late st Contact Info) Description 05/07/2022 Documentation [facility] ([facility]) - [facility] ENT [address] [facility] [address] [place] [address] [place] [address] Amadeo Bazzi MD [address] [place] [address] Social History Tobacco Use Types [...] How often do you attend chur or latter day services? Never 12/22/2021 Do [...] on file Legal Sex Female 1:34 AM JAR FILLER Gender Identity Not on file Sexual Orientation Not on file documented as of this encounter Plan of Treatment Not on file documented as of this encounter Visit Diagnoses Not on filedocumented in this encounter Additional Health Concerns Infection Onset Date Last Indicated Resolved Time MDR gram neg/ESBL 2022 2022 documented as of this encounter Care Teams Ribbon Cutter Relationship Specialty Start Date End Date Jorge Luis Hill MD PCP - General 04/30/18 documented as of this encounter
--- OUTSIDE RECORDS SUMMARY | 2024-09-03 10:27 | XMS_ITS | Clinical Summary ---
Author Organization [facility] Address [facility] [place] [address] Care Team Providers Care Secretary Book Keeper Name Role Phone Jorge Luis Hill MD Primary Care Provider [phone] Allergies No known active allergies Medications rosuvastatin [...] capsule 2 Active vitamin D2, ergocalciferol , 13049 UNITS capsule 2 Active escitalopram 20 MG [...] Comments Blood Pressure 106/76 05/05/2021 12:15 PM EDITORIAL ASSISTANT Pulse 83 05/05/2021 12:15 PM EDITORIAL ASSISTANT Temperature 36.1 C (96.9 F) 05/05/2021 11:58 AM EDITORIAL ASSISTANT Respiratory Rate 14 05/05/2021 12:15 PM EDITORIAL ASSISTANT Oxygen Saturation 94% 05/05/2021 12:15 PM EDITORIAL ASSISTANT Inhaled Oxygen Concentration - - Weight 108.4 kg (239 lb) 05/05/2021 10:03 AM EDITORIAL ASSISTANT Height 157.5 cm (5' 2) 05/05/2021 10:03 AM EDITORIAL ASSISTANT Body Mass Index 43.71 05/05/2021 10:03 AM EDITORIAL ASSISTANT Plan of Treatment Health Maintenance Due Date [...] Diagnosis Comments COLONOSCOPY Routine 05/05/2021 11:05 AM EDITORIAL ASSISTANT from Last 3 Months or Most Recently Relevant to Health Maintenance Results * Colonoscopy (05/05/2021 11:05 AM EDITORIAL ASSISTANT) Narrative Estuardo Wells MD - 05/05/2021 11:05 AM EDITORIAL ASSISTANT Estuardo Wells MD 05/05/2021 12:05 PM ESTUARDO [...] the left lateral decubitus position, the Olympus [id number] colonoscope was introduced into the rectum and [...] of liver 04-14-2021 but was inpatient at [facility] - Will check to see if she had CT scan while inpatient Thank you for allowing me to care for your patient. She will follow-up with Dr. Hill as needed. Estuardo Wells M.D. Cc: Dr. Nithin Hill us Estuardo Wells MD GI PROCEDURE ORDERABLES Fin al Result from Last 3 Months or Most Recently Relevant to Health Maintenance Insurance [employer] Care Teams Secretary Book Keeper Relationship Specialty Start Date End Date Jorge Luis Hill MD [address] [place] [id number] PCP - General FAMILY PRACTICE 11/25/19
--- OUTSIDE RECORDS SUMMARY | 2024-09-03 10:27 | XMS_ITS | Clinical Summary ---
Author Organization [facility] Address [address] [facility] [place] [address] Care Team Providers Care Project Technician Name Role Phone Jorge Luis Hill MD Primary Care Provider Medications PROAIR HFA 90 mcg/actuation inhaler INHALE [...] directed for 30 days. Active albuterol (PROVENTIL,TORI MLAOU) 2.5 mg /3 mL (0.083 %) Solution [...] mg tablet Active naloxone (Narcan) 4 mg/spray [place], Non-Aerosol Narcan 4 mg/actuation nasal spray 03/18/19 22 Active methocarbamoL (ROBAXIN) 500 mg tablet methocarbamol 500 mg tablet 04/09/19 22 Active loratadine (Claritin) 10 mg tablet every 24 hours. Acti ve ketorolac tromethamine (TORADOL) 10 mg tablet ketorolac 10 mg tablet Active ibuprofen (MOTRIN) 600 mg tablet ibuprofen 600 mg tablet Active hydrocortisone (CORTAID) 1 % Cream hydrocortisone 1 % topical cream BOI EXT AA BID Active HYDROcodone-acet aminophen (NORCO) [...] 6 MONTHS 10/16/2022 04/18/2022, INFLUENZA VACCINE (#1) 2024 3, 01/10/2022, 03/05/2021 DTAP/TDAP/TD VACCINES (2 - [...] Insurance [employer] Care Teams Project Technician Relationship Specialty Start Date End Date Jorge Luis Hill MD PCP - General Emergency Medicine 05/30/18
--- OUTSIDE RECORDS SUMMARY | 2024-09-03 10:27 | XMS_ITS | Continuity of Care Document ---
Author Organization [facility] Address [address] [facility] [place] [address] Phone Care Team Providers Care Traffic Assistant Name Role Phone Eleno Valenzuela MD [...] Diagnoses Date Provider Providers Copied on Encounter [facility] Medicine, [address] [place], [address], tel:[phone] [facility] No Information 4 Nicolas Smith [address] [place], [place], [address] , [place]. tel:[phone] Referring Provider: Lala Higgins, [place], [place], [address]. tel:[phone] PREV VISIT, EST, AGE 40-64 [facility], [address] [place], [place], [address], tel:[phone] [facility] PHysical (chief complaint) Routine Medical ExamHypertension, UnspecifiedGenera lized anxiety disorderHeadacheR outine Medical Exam 0 4 Nicolas Smith [address] [facility] [place], [address] , [place]. tel:[phone] Referring Provider: Lala Higgins [address], [place], [place], [address]. tel:[phone] OFFICE/OUTPA TIENT VISIT, [facility], [address], [place], [place], [address], [place] tel:[phone] [facility] back pain (chief complaint)HT N (chief complaint)HL P (chief complaint)[place] PD (chief complaint) Dietary surveillance and counselingCOPDLum bagoHypertension, UnspecifiedOther and unspecified hyperlipidemia 4 Nicolas Johansen. [address], [place], [place], [address] , [place]. tel:[phone] Referring Provider: Lala Higgins [address], [place], [place], [address]. tel:[phone] OFFICE/OUTPA TIENT VISIT, [facility], [address], [place], [place], [address], [place] tel:[phone] [facility] back pain (chief complaint)HT N (chief complaint)HL P (chief complaint)an xiety (chief complaint) Dietary surveillance and counselingHypoten tanja, UnspecifiedOther and unspecified hyperlipidemiaGen eralized anxiety disorderLumbago 4 Nicolas Smith [address], [place], [place], [address] , [place]. [phone] Referring Provider: Lala Higgins [address], [place], [address]. tel:[phone] OFFICE/OUTPA TIENT VISIT, [facility], [address], [place], [place], [address], [place] tel:[phone] [facility] hypotension (chief complaint)ba ck pain (chief complaint)fa tigue (chief complaint)easton nd fx (chief complaint) Dietary surveillance and counselingHypoten tanaj, UnspecifiedLumbag oFatigue / MalaiseClosed fracture of base of other metacarpal bone(s) 4 Nicolas Johansen. [address], [place], [place], [address] , [place]. tel:[phone] Referring Provider: Lala [address]gins [address], [place], [place], [address]. tel:[phone] OFFICE/OUTPA TIENT VISIT, [facility], [address], [place], [place], [address], [place] tel:[phone] [facility] back pain (chief complaint)so re throat (chief complaint)easton nd pain (chief complaint) Dietary surveillance and counselingPain in joint involving handLumbagoThroat pain 4 Nicolas Smith [address], [place], [place], [address] , [place]. tel:[phone] Referring Provider: Lala Higgins [address], [place], [place], [address]. tel:[phone] OFFICE/OUTPA TIENT VISIT, [facility], [address], [place], [place], [address], [place] tel:[phone] [facility] depression (chief complaint)[place] PD (chief complaint)ba ck pain (chief complaint) Dietary surveillance and counselingLumbago COPDHypertension, UnspecifiedRESTLE SS LEGS SYNDROME 4 Nicolas Smith [address], [place], [place], [address] , [place]. tel:[phone] Referring Provider: Lala Higgins [address], [place], [place], [address]. tel:[phone] OFFICE/OUTPA TIENT VISIT, [facility], [address], [place], [place], [address], [place] tel:[phone] [facility] anxiety (chief complaint)ba ck pain (chief complaint)UT I (chief complaint)[place] PD (chief complaint) Dietary surveillance and counselingUrinary Tract InfectionGenerali zed anxiety disorderLumbagoCO PD 4 Nicolas Smith [address], [place], [place], [address] , [place]. tel:[phone] Referring Provider: Eleno Valenzuela, [address], [place], [place], [address]. tel:[phone] OFFICE/OUTPA TIENT VISIT, [facility], [address], [place], [address], [place] tel:[phone] [facility] back pain (chief complaint)sw eet smell in urine (chief complaint)HT N (chief complaint)in somnia (chief complaint) Dietary surveillance and counselingLumbago Metabolic SyndromeHypertens ion, UnspecifiedInsomn ia, Other 3 Nicolas Johansen. [address], [place], [place], [address] , [place]. [phone] Referring Provider: Eleno Valenzuela, [address], [place], [place], [address]. tel:[phone] OFFICE/OUTPA TIENT VISIT, [facility], [address], [place], [place], [address], [place] tel:[phone] [facility] back pain (chief complaint)an xiety (chief complaint)fa tigue (chief complaint) Dietary surveillance and counselingLumbago Generalized anxiety disorderFatigue / Malaise 3 Nicolas Johansen. [address], [place], [place], [address] , [place]. tel:[phone] Referring Provider: Lala Higgins [address], [place], [address]. tel:[phone] OFFICE/OUTPA TIENT VISIT, [facility], [address], [place], [place], [address], [place] tel:[phone] [facility] HTN (chief complaint)ba ck pain (chief complaint)an xiety (chief complaint) Dietary surveillance and counselingHyperte nsion, UnspecifiedLumbag oGeneralized anxiety disorder 3 Nicolas Johansen. [address], [place], [address] , [place]. tel:[phone] Referring Provider: Eleno Valenzuela, [address], [place], [place], [address]. tel:[phone] OFFICE/OUTPA TIENT VISIT, [facility], [address], [place], [place], [address], tel:[phone] [facility] back pain (chief complaint)an xiety (chief complaint)HT N (chief complaint)[place] PD (chief complaint) Dietary surveillance and counselingLumbago Hypertension, UnspecifiedGenera lized anxiety disorderCOPD 3 Nicolas Johansen. [address], [place], [place], [address] , [place]. [phone] Referring Provider: Eleno Valenzuela, [address], [place], [address]. tel:[phone] OFFICE/OUTPA TIENT VISIT, [facility], [address], [place], [place], [address], [place] tel:[phone] [facility] otalgaia (chief complaint)ba ck pain (chief complaint)an xiety (chief complaint)HT N (chief complaint)sl eep apnea (chief complaint) Dietary surveillance and counselingOther acute otitis externaHypertensi on, UnspecifiedGenera lized anxiety disorderSleep Apnea 3 Nicolas Johansen. [address], [place], [address] , [place]. [phone] Referring Provider: Eleno Valenzuela, [address], [place], [address]. tel:[phone] OFFICE/OUTPA TIENT VISIT, [facility], [address], [place], [address], [place] tel:[phone] [facility] lumbago (chief complaint)pr eDM (chief complaint)HL P (chief complaint)an xiety (chief complaint)fa tigue (chief complaint) Dietary surveillance and counselingSleep ApneaLumbagoMetab olic SyndromeOther and unspecified hyperlipidemia 3 Nicolas Johansen. [address], [place], [address] , [place]. tel:[phone] Referring Provider: Lala Higgins [address], [place], [place], [address]. tel:[phone] PREV VISIT, EST, AGE 40-64 [facility], [address], [place], [place], [address], [place] tel:[phone] [facility] Physical (chief complaint) Routine Medical ExamDietary surveillance and counselingLumbago Routine Medical Exam 3 Nicolas Johansen. [address], [place], [place], [address] , [place]. tel:[phone] Referring Provider: Eleno Valenzuela, [address], [place], [place], [address]. tel:[phone] OFFICE/OUTPA TIENT VISIT, [facility], [address], [place], [place], [address], [place] tel:[phone] [facility] back pain (chief complaint)ri ght side swelling (chief complaint) Dietary surveillance and counselingLumbago Enlargement of lymph nodesViral Infection, Unspecified 3 Nicolas Johansen. [address], [place], [place], [address] , [place]. tel:[phone] Referring Provider: Lala Higgins [address], [place], [address]. tel:[phone] OFFICE/OUTPA TIENT VISIT, [facility], [address], [place], [place], [address], [place] tel:[phone] [facility] COPD (chief complaint)GE RD (chief complaint)De pression (chief complaint)it saw (chief complaint) Dietary surveillance and counselingLumbago Hypertension, UnspecifiedGenera lized anxiety disorderCOPD 3 Nicolas Johansen. [address], [place], [place], [address] , [place]. tel:[phone] Referring Provider: Lala Higgins [address], [place], [place], [address]. tel:[phone] OFFICE/OUTPA TIENT VISIT, [facility], [address], [place], [place], [address], [place] tel:[phone] [facility] back pain (chief complaint)an xiety (chief complaint)El bow pain (chief complaint) LumbagoGeneralize d anxiety disorderDietary surveillance and counselingPain in joint involving upper arm 3 Nicolas Johansen. [address], [place], [place], [address] , [place]. tel:[phone] Referring Provider: L[address], [place], [place], [address]. tel:[phone] OFFICE/OUTPA TIENT VISIT, [facility], [address], [place], [address], [place] tel:[phone] [facility] back pain (chief complaint)an xiety (chief complaint)di zziness (chief complaint) Dietary surveillance and counselingLumbago Generalized anxiety disorderDizziness Anal and rectal polyp 3 Nicolas Johansen. [address], [place], [place], [address] , [place]. [phone] Referring Provider: Lala Higgins [address], [place], [place], [address]. tel:[phone] OFFICE/OUTPA TIENT VISIT, [facility], [address], [place], [place], [address], [place] tel:[phone] [facility] back pain (chief complaint)HL P (chief complaint)an xiety (chief complaint) Dietary surveillance and counselingHyperte nsion, UnspecifiedLumbag oGeneralized anxiety disorderOther and unspecified hyperlipidemia 3 Nicolas Johansen. [address], [place], [place], [address] , [place]. [phone] Referring Provider: Lala Higgins [address], [place], [place], [address]. tel:[phone] OFFICE/OUTPA TIENT VISIT, [facility], [address], [place], [place], [address], [place] tel:[phone] [facility] back pain (chief complaint)HL P (chief complaint)an xiety (chief complaint) Dietary surveillance and counselingLumbago Generalized anxiety disorderOther and unspecified hyperlipidemiaHyp ertension, Unspecified 2 Nicolas Johansen. [address], [place], [place], [address] , [place]. tel:[phone] Referring Provider: Eleno Valenzuela, [address], [place], [place], [address]. tel:[phone] OFFICE/OUTPA TIENT VISIT, [facility], [address], [place], [place], [address], [place] tel:[phone] [facility] back pain (chief complaint)an xiety (chief complaint)fa ll (chief complaint)HL P (chief complaint)he adache (chief complaint) Dietary surveillance and counselingOther and unspecified hyperlipidemiaHea dacheLumbagoGener alized anxiety disorderInfluenza Vaccine 2 Nicolas Johansen. [address], [place], [place], [address] , [place]. tel:[phone] Referring Provider: Eleno Valenzuela [address], [place], [place], [address]. tel:[phone] OFFICE/OUTPA TIENT VISIT, [facility], [address], [place], [address], [place] tel:[phone] [facility] insomnia (chief complaint)ba ck pain (chief complaint)an xiety (chief complaint) Dietary surveillance and counselingHyperte nsion, UnspecifiedInsomn ia, OtherLumbagoCOPD 2 Nicolas Johansen. [address], [place], [place], [address] , [place]. tel:[phone] Referring Provider: Lala Higgins [address], [place], [place], [address]. tel:[phone] OFFICE/OUTPA TIENT VISIT, EST [facility], [address], [place], [address], [place] tel:[phone] [facility] back pain (chief complaint)di zziness (chief complaint)fa tigue (chief complaint)hy pertension (chief complaint) Dietary surveillance and counselingHeadach eMajor depressive affective disorder, single episode, mild degreeFatigue / MalaiseLumbagoDiz ziness 2 Nicolas Johansen. [address], [address] , [place]. tel:[phone] Family History Family Member Type Diagnosis Age At Onset Father Problem (finding) Hypertension Father Problem (finding) Alzheimer's Disease Father Problem (finding) Stroke Mother Problem (finding) Stroke Mother Problem (finding) Hypertension Immunizations Vaccine Date Status Comments Flu (split) (3 yrs or older) administered Source: New Immunization Record Payers Payer name Insurance type Covered alliance party ID Authoriza tion(s) No Information Social [...]
[2024-09-03 10:55] VITALS: BP 141/92; PULSE 88; RESP 20; TEMP 37.2; O2SAT 100
--- NOTE | 2024-09-03 10:58 | WPDHPUPDATE1 ---
History and Physical Update Update Date/Time: 09/03/24 10:58 History and Physical has been reviewed, including an updated exam of the patient. There are NO changes in the patient's condition. Risks, benefits, and alternatives have been discussed and questions answered. Patient agrees to proceed with procedure.
--- NOTE | 2024-09-03 10:59 | W.PM.PROC2 ---
Procedure Note - Detailed Date of Procedure 09/03/24 Pre-op Diagnosis Lumbosacral Spondylosis w/o Myelopathy or Radicul. Post-op Diagnosis Same Procedure Performed Diagnostic Bilateral Lumbar Medial Branch/Dorsal Ramus Blocks at L3, L4, L5 Treating the Bilateral L4-5, L5-S1 Facet Joints Under Fluoroscopic Guidance and with Contrast Control. (4 levels blocked). Surgeon Preet Mariscal MD [employer] None. Anesthesia Local Description of Procedure INFORMED CONSENT: Risks, benefits and alternatives to the procedure were discussed in detail with the patient who expressed explicit understanding and consent to proceed. Patient was informed verbally and in written form regarding the risks associated with the procedure including the low risk of serious infection, bleeding/bruising, allergic reaction, nerve or organ injury, paralysis, procedural site pain or discomfort, worsening pain and/or mobility, failure to treat and/or disfigurement. The patient expressed explicit understanding and consent to proceed. All materials required for the procedure were available prior to procedure start. Site and side were marked prior to procedure and confirmed in the presence of the patient. PROCEDURE IN DETAIL: The patient was brought to the procedural suite and placed in the prone position. Patient was made comfortable with use of pillows under the head/chest, hips and ankles. Skin overlying the injection site on the affected side(s) was prepared broadly with ChloraPrep applicator and draped in a sterile manner. Aseptic technique was used throughout. The endplates of the vertebral bodies at the site(s) of interest were aligned in the AP view. Ipsilateral oblique angulation was utilized to optimize visualization of the intersection between the superior articulating process and transverse process at each target site. Local anesthesia was established by infiltration with approximately 5 mL of 1% lidocaine via a 1-1/2 inch 27-gauge needle. A 25-gauge 3.5 inch Quincke spinal needle was advanced until the needle tip contacted periosteum at the target site, right L3. Lateral view was utilized to confirm the appropriate placement of the needle tip just anterior to the facet line and superior to the pedicle. In the Lateral view, 0.25 mL of Omnipaque 300 contrast medium was injected after negative aspiration for CSF, blood or other bodily fluid, showing appropriate extra-articular spread of contrast without evidence of intravascular, foraminal or intrathecal placement. A 0.5 mL solution of 2.0% PF Lidocaine was injected after negative repeat aspiration. Appropriate spread of the injectate was confirmed with washout of previously injected contrast. No parasthesias were elicited. Needle was removed completely intact without difficulty. The same exact procedure was repeated for all remaining levels on the ipsilateral side, right L4, L5 medial branches/dorsal ramus, modified as necessary to accommodate for the new target location with identical findings and results and no evidence of complication. The same exact procedure was repeated for all remaining levels on the contralateral side, left L3, L4, L5 medial branches/dorsal ramus, modified as necessary to accommodate for the new target location with identical findings and results and no evidence of complication. Images were saved and documented in the patient chart. Patient's skin was cleaned and sterile bandage applied. The patient tolerated the procedure well. The patient was transported to the recovery area in stable condition where they were observed for an appropriate amount of time prior to discharge, without evidence of complication. Patient was instructed on the appropriate completion of a pain diary over the next 12-24 hours. The patient was instructed to avoid excessive activity for the next 48 hours, including climbing and frequent use of stairs. Showers only for 48 hours. They were instructed not to drive or operate heavy machinery for 24 hours. They are to monitor for severe headaches, fevers, chills, night sweats, erythema/swelling at the site or any other signs of infection, bleeding/bruising, bowel or bladder changes as well as new pain, weakness or numbness in the upper or lower extremity. Should they notice these changes, they are instructed to call our office immediately or report directly to the nearest Emergency Department if no answer or if after posted office hours. COMPLICATIONS: None COMMENTS: None CONTRAST WASTED: 28.5mL Omnipaque 300. Complications No immediate complications Condition Stable Disposition Same day [facility] Billing Surgery - Charge Forward: Surgery Billing
[2024-09-03 12:03] VITALS: BP 152/85; PULSE 90; RESP 18; O2SAT 98
[2024-09-03 12:11] VITALS: BP 138/87; PULSE 87; RESP 16; O2SAT 99
[2024-09-03 12:16] VITALS: BP 139/91; PULSE 86; RESP 16; O2SAT 97
[2024-09-03] MEDS: BUPivacaine HCL 0.5% 10 ML AMP INFILTRATE (12:18)
[2024-09-03 12:22] VITALS: BP 135/76; PULSE 86; RESP 14; O2SAT 100
--- NOTE | 2024-09-03 13:07 | SUR.PHASEII ---
Dr Mariscal approved for pt to wait outside with her prior to her ride arriving without nursing presence.
== END 2024-09-03 12:49 | disposition home or self-care (01) ==
PROVIDERS: PCP Emergency Medicine; Visit Provider Anesthesiology Pain Medicine
PROC: (CPT 64493; principal; 2024-09-03 11:10)
DX: M47.817 Spondylosis without myelopathy or radiculopathy, lumbosacral region (principal)
CPT/HCPCS: 64493; 64494 ×2; 64495 ×2; 99199

== ENCOUNTER 2024-12-02 13:29 | Outpatient (CLI) | payer OTHER, SELFPAY ==
[2024-12-02 13:51] LABS: Hematocrit 41.6 % (37.0-47.0); Hemoglobin 13.3 g/dL (12.0-15.0)
[2024-12-02 14:14] LABS: Anion Gap 10 mmol/L (4-12); Blood Urea Nitrogen 30 mg/dL (7-17); Calcium 9.5 mg/dL (8.4-10.2); Carbon Dioxide 26 mmol/L (22-30); Chloride 100 mmol/L (98-107); Estimated Glomerular Filt Rate 33; Glucose 190 mg/dL (65-110); Potassium 3.7 mmol/L (3.4-5.0); Sodium 136 mmol/L (137-145)
--- OUTSIDE RECORDS SUMMARY | 2024-12-02 14:28 | XMS_ITS | Encounter Summary ---
Author Organization [facility] Address [address] [place] [address] Phone Care Team Providers Care Driller'S Offsider Name Role Phone Jorge Luis Hill MD Primary Care Provider Encounter Details Date Type Department Care Team (Late st Contact Info) Description 05/03/2022 Telephone [facility] - [address] [place] [address] Janette Holcomb RN Social History Tobacco Use Types Packs/Day Years Used Date Smoking Tobacco: Every Day Cigarettes 0.5 49.8 Started: 1975 Smokeless Tobacco: Never Comments:Formerly smoked 1.5 - 2 ppd Alcohol Use Standard Drinks/Week Comments Never 0 (1 standard drink = 0.6 oz pur e alcohol) Social Connection and Isolation Panel Answer Date Recorded In a typical week, [...] any clubs o r organizations such as jew groups, unions, fraternal or athletic groups, or [...] place to sleep or slept in a intermediate (including now)? No 12/22/2021 Comments No Sex and Gender Information Value Date Recorded Sex Assigned at Not on file Legal Sex Female 1:[address] JUSTICE Gender Identity Not on file Sexual Orientation Not on file documented as of this encounter Plan of Treatment Not on file documented as of this encounter Visit Diagnoses Not on filedocumented in this encounter Additional Health Concerns Infection Onset Date Last Indicated Resolved Time MDR gram neg/ESBL 2022 2022 documented as of this encounter Care Teams Driller'S Offsider Relationship Specialty Start Date End Date Jorge Luis Hill MD PCP - General 04/30/18 documented as of this encounter
--- OUTSIDE RECORDS SUMMARY | 2024-12-02 14:28 | XMS_ITS | Encounter Summary ---
Author Organization [facility] Address [address] [place] [address] Phone Care Team Providers Care Head Soft Sugar Operator Name Role Phone Jorge Luis Hill MD Primary Care Provider [phone] Encounter Details Date Type Department Care Team (Late st Contact Info) Description 05/07/2022 Documentation [facility] - [facility] ENT [address] [facility] [address] [place] [address] [place] [address] Amadeo Bazzi MD [address] [place] [address] Social History Tobacco Use Types Packs/Day Years [...] week 12/22/2021 How often do you attend [facility] or mu-ism services? Never 12/22/2021 Do you belong to any clubs o r organizations such as alevism groups, unions, fraternal or athletic groups, or [...] place to sleep or slept in a detention (including now)? No 12/22/2021 Comments No Sex and Gender Information Value Date Recorded Sex Assigned at Not on file Legal Sex Female 1:34 AM [employer] Gender Identity Not on file Sexual Orientation Not on file documented as of this encounter Plan of Treatment Not on file documented as of this encounter Visit Diagnoses Not on filedocumented in this encounter Additional Health Concerns Infection Onset Date Last Indicated Resolved Time MDR gram neg/ESBL 2022 2022 documented as of this encounter Care Teams Head Soft Sugar Operator Relationship Specialty Start Date End Date Jorge Luis Hill MD PCP - General 04/30/18 documented as of this encounter
--- OUTSIDE RECORDS SUMMARY | 2024-12-02 14:28 | XMS_ITS | Clinical Summary ---
Author Organization [facility] Address [address] [place] [address] Phone Care Team Providers Care Generator Rebuilder Name Role Phone Jorge Luis Hill MD Primary Care Provider [phone] Allergies No known active allergies Medications aspirin [...] nightly 01/03/20 20 Active cholecalciferol (VITAMIN D-3) 41378 unit tablet Take 1 tablet (50,000 Units total) by mouth once a week 12/01/19 18 Active dicyclomine (BENTYL) 10 mg capsule Take 1 capsule (10 mg total) by mouth 4 (four) times a day Active furosemide (LASIX) 40 mg tablet 12/29/19 22 Active naloxone (NARCAN) 4 mg/actuation spray,non-aeroso l 03/18/19 22 Active diltiaZEM CD (CARDIZEM CD) 360 mg 24 hr capsule Take 1 capsule (360 mg total) by mouth daily 01/31/20 22 Active escitalopram (LEXAPRO) 20 mg tablet Take 1 tablet (20 mg total) by mouth daily 01/20/20 22 Active metoclopramide (REGLAN) 10 mg tabletIndication s:nausea preventative Take 1 tablet (10 mg total) by mouth 3 (three) times a day before meals Active amitriptyline (ELAVIL) 50 mg tablet 03/23/19 23 Active rOPINIRole (REQUIP) 0.5 mg tablet TAKE 1 TABLET BY MOUTH EVERY NIGHT AT BEDTIME WITH 1 MG TABLET *EMERGENCY REFILL* 06/23/19 24 Active Symbicort 160-4.5 mcg/actuation inhaler INHALE TWO (2) PUFFS BY MOUTH TWICE DAILY. RINSE MOUTH OUT WITH WATER AFTER EACH USE. DO NOT SWALLOW 10.2 g 04/22/19 25 Active Farxiga 10 mg tabletIndication s:Type 2 diabetes mellitus with hyperglycemia, without long-term current use of insulin (HCC) TAKE 1 TABLET BY MOUTH DAILY 30 tablet 05/14/19 25 Active fluticasone propionate (FLONASE) 50 mcg/actuation nasal spray 02/15/20 24 Active ibuprofen (ADVIL,MOTRIN) 600 mg tablet 04/30/19 25 Active Linzess 290 mcg capsule 05/22/[address] (PROTONIX) 40 mg EC tablet pantoprazole 40 mg tablet,delayed release (DR/EC) Active albuterol 2.5 mg /3 mL (0.083 %) nebulizer solution Take 3 mL (2.5 mg total) by nebulization every 6 (six) hours as needed for wheezing or shortness of breath 360 mL 06/14/19 25 Active metFORMIN (GLUCOPHAGE) 500 mg tabletIndication s:Type 2 diabetes mellitus with hyperglycemia, without long-term current use of insulin (HCC) TAKE 1 TABLET BY MOUTH TWICE DAILY *PATIENT MUST CONTACT OFFICE FOR FURTHER REFILLS* 90 tablet 11 07/30/19 25 Active gabapentin (NEURONTIN) 300 mg capsuleIndicatio ns:Type 2 diabetes mellitus with hyperglycemia, without long-term current use of insulin (HCC) TAKE 1 CAPSULE BY MOUTH 3 TIMES DAILY 90 capsule 11 07/30/19 25 Active albuterol HFA (PROVENTIL HFA,VENTOLIN HFA,PROAIR HFA) 90 mcg/actuation inhalerIndicatio ns:Chronic obstructive pulmonary disease, unspecified COPD type (HCC) Inhale 1 puff every 4 (four) hours as needed for wheezing 1 each 11 10/11/19 25 Active tiotropium bromide (SPIRIVA RESPIMAT) 2.5 mcg/actuation inhalerIndicatio ns:Chronic obstructive pulmonary disease, unspecified COPD type (HCC) Inhale 2 puffs daily 1 each 6 10/11/19 25 Active ergocalciferol (VITAMIN D) 50,000 unit capsule Take 1 capsule (50,000 Units total) by mouth once a week Take 1 capsule every 7 days 8 capsule 10/23/19 25 026 Active loratadine (CLARITIN) 10 mg tablet TAKE 1 TABLET BY MOUTH EVERY DAY 30 tablet 11 11/02/19 25 Active QUEtiapine (SEROquel) 100 mg tablet 11/06/19 25 Active omeprazole (PriLOSEC) 40 mg capsule 03/17/19 23 025 Discontin ued(Thera py completed ) Active Problems Problem Noted Date Diagnosed Date Chronic kidney disease (CKD), stage 2 11/29/2024 Cigarette nicotine dependence without complicati on 06/14/2024 Assessment & Plan (06/14/2024 9:22 AM CDT): She continues to smoke about 4-5 cigarettes per day. - Smoking cessation counseling and techniques reviewed at length - Avoid triggers and use distraction techniques - Information given regarding [place] Tobacco Quit line: [id number] for free services - 5 minutes spent [...] echocardiogram, Assessment & Plan (02/13/2024 11:58 AM DELIVERY ENGINEER): Continue supplemental oxygen for saturations 90% I have advised her to get a home pulse oximeter and bring it to her next visit for comparison She has a visit with our equipment cleaner upcoming and will likely have an echocardiogram. [...] right shoulder 04/26/2022 Osteonecrosis of mandible 2022 Assessment & Plan (10/31/2024 8:40 PM CDT): Patient has been on chronic suppression with Bactrim DS for osteonecrosis/osteomyelitis c/b infected retained hardware in mandible with cultures growing serratia and mixed respiratory micro for total 2.5 years, EOT 07/24/24. She is clinically doing well at this time. - no indication for recurrent infection nor antibiotics. - I discussed with the patient my impression, the imaging findings, and treatment plan in detail with a focus on the etiology, natural history, and management of symptoms. - I discussed with the patient the rationale for treatment, culture results, risk of recurrent infection, signs/symptoms of recurrent infection, and to contact ID clinic with any questions or concerns. 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 If no surgical plan, Resume diet. Manager Market Research re supplements. Pain control with prn tylenol 1gm QID prn, oxy 5mg Q4hr PRN, Morphine 6mg IV Q4hrs PRN breakthrough. PT/OT evaluation, CM consult for DC planning, as anticipate 4-6wks IV abxs. Type 2 diabetes mellitus wit h hyperglycemia, without long-term current use of insulin 12/13/2021 Assessment & Plan (08/07/2023 4:05 PM [...] care Assessment & Plan (02/13/2024 11:59 AM DELIVERY ENGINEER): Continue Symbicort twice daily Continue Spiriva twice [...] 12/13/2021 Assessment & Plan (02/13/2024 11:57 AM DELIVERY ENGINEER): Continue PAP with all sleep She is aware of the risks of uncorrected sleep apnea Assessment & Plan (12/21/2021 12:03 PM CDT): Exacerbated by BMI 42. Alert, oriented. Outpatient PSG Assessment & Plan (12/13/2021 11:24 AM CDT): Exacerbated by BMI 42. Alert, oriented. Morbid obesity with BMI of 40.0-44.9, adult 11/27 Assessment & Plan (12/14/2021 3:10 PM CDT): BMI 42.07, 104.3kg this admit. 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 Assessment & Plan (12/13/2021 10:25 AM CDT): BMI 42.07, 104.3kg this admit. Manager Market Research to see [facility] weight loss management goals with PCP, hx DM, HTN, ELIOT & may benefit from bariatric evaluation. Pancreatic cyst 01/10/2020 Overview (01/10/2020): Added automatically from request for surgery [id number] Resolved Problems Problem Noted Date Diagnosed Date Resolved Date Nicotine dependence, cigarettes, in remission 02/13/20 24 06/14/2024 Assessment & Plan (02/13/2024 11:57 AM DELIVERY ENGINEER): Quit in November of 2023 She is due for annual CT chest in February of 2023 Encounters Date Type Department Care Team Description 11/29/2024 1:30 PM CDT Office Visit [facility] Medicine Nephrology [address] [place] [address] [place] [address] Maged Mckeon MD Chronic kidney disease (CKD), stage 2 (Primary Dx); Type 2 diabetes mellitus with hyperglycemia, without long-term current use of insulin (HCC) 11/21/2024 Orders Only [facility] Medicine Nephrology [address] [place] [address] [place] [address] Maged Mckeon MD [place] (acute kidney injury) (Primary Dx); Hypertension associated with diabetes (HCC); Type 2 diabetes mellitus with hyperglycemia, without long-term current use of insulin (HCC) 11/07/2024 Telephone [facility] Cardiology [address] [place] [address] Riky Go MD 10/30/2024 1:20 PM CDT Office Visit [facility] Infectious Diseases [address] [place] [address] Aniyah Gooden NP Osteonecrosis of mandible (HCC) (Primary Dx) 10/29/2024 10:45 AM CDT Office Visit [facility] Cardiology [address] [place] [address] Riky Go MD 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, unspecified whether angina present (Primary Dx) 10/22/2024 Results Follow-Up [facility] [address]th [place] [address] [place] [id number] Paola Willard NP Albumin Creatinine Ratio, Urine, Urinalysis reflex to microscopic, NOTE, Additional followed-up results: 5 10/22/2024 Orders Only [facility] [address] [place] [address] [place] [address] Paola Willard NP Age-related osteoporosis without current pathological fracture (Primary Dx) 10/16/2024 12:00 PM CDT Office Visit [facility] [address] [place] [address] [place] [address] Paola Willard NP Age-related osteoporosis without current pathological fracture (Primary Dx); Acute kidney injury 10/16/2024 11:30 AM CDT Clinical Support [facility] [address] [place] [address] [place] [id number] Post-menopausal (Primary Dx); Age-related osteoporosis without current pathological fracture; Osteopenia of multiple sites 10/16/2024 Telephone [facility] Bone Health [address] Medicine [address]th [place] [address] [place] [address] Paola Willard NP 10/10/[address] [facility] [place] [address] [place] [address] Ashley Kwon LPN Rf Spiriva, Albuterol inhaler 10/09/2024 Telephone [facility] [address] [place] [address] [place] [address] Paola Willard NP 09/20/2024 Telephone [facility] Center [address] [place] [address] Demetris Marc from Last 3 Months Immunizations Immunization Administration Dates Next Due Influenza, Quadrivalent, Spl it, Preservative Free, Intramuscular 12/28/2022 Pfizer Sars-Cov-2 Bivalent Vaccination (12+ YRS) 03/02/2022 Surgical History Surgery Date Site/Laterality Comments SECTION 1984, 1988 TOTAL ABDOMINAL HYSTERECTOMY W/ BILATERAL SALPINGOOPHORECTOMY 02/27/1995 - 02/27/1996 BUILDING STONECUTTER SHUNT INSERTION 02/27/2010 - 02/26/2011 COLONOSCOPY BRAIN SURGERY Medical History Medical History Date Comments GERD (gastroesophageal reflux disease) Hypertension Hyperlipidemia Type 2 diabetes mellitus Sleep apnea Dysphagia Asthma COPD (chronic obstructive pulmonary disease) Stroke (HCC) Anemia Anxiety Arthritis Osteoporosis Depression [...] or pharmacy Never 08/09/2022 Social Connection and Isolation Panel Answer Date Recorded In a typical week, how many times do you talk on the phone with family, friends, or neighbors? More than three times a week 12/22/2021 How often do you get togethe r with friends or relatives? More than three times a week 12/22/2021 How often do you attend chur ch or hoahaoism services? Never 12/22/2021 Do you belong to any clubs o r organizations such as zoroastrian groups, unions, fraternal or athletic groups, or [...] in a long-term (including now)? No 12/22/2021 Personal Safety Answer Date Recorded Getting School Help Needed Denies 02/11 Comments No Sex and Gender Information Value Date Recorded Sex Assigned at Not on file Legal Sex Female 1:34 AM DELIVERY ENGINEER Gender Identity Not on file Sexual Orientation Not on file Obstetrics History Last Filed Vital Signs Vital Sign Reading Time Taken Comments Blood Pressure 106/74 11/29/2024 1:31 PM CDT Pulse 88 11/29/2024 1:31 PM CDT Temperature 37.4 C (99.4 F) 11/29/2024 1:31 PM CDT Respiratory Rate 18 02/12/2024 2:42 PM DELIVERY ENGINEER Oxygen Saturation 95% 11/29/2024 1:31 PM CDT Inhaled Oxygen Concentration - - Weight 79.8 kg (176 lb) 11/29/2024 1:31 PM CDT Height 160 cm (5' 3) 11/29/2024 1:31 PM CDT Body Mass Index 31.18 11/29/2024 1:31 PM CDT Plan of Treatment Health Maintenance Due Date Last Done Comments Breast Cancer Screening-Mammogram 1965 Colon Cancer Screening-Colonoscopy 1965 Dilated Eye Exam 1965 Foot Exam 1965 Hepatitis B Screening 1983 Regular Well Visit/Exam 18-64 1983 Pneumococcal vaccine <65 (1 of 2 - PCV) 02/04/1984 Zoster Vaccine (1 of 2) 2015 Depression Screening 12/12/2022 12/12/2021 Lipid Panel 02/15/2023 02/15/2022, 2022 Hemoglobin A1C 02/06/2024 08/07/2023, 03/31, 12/13/2021, Additional history exists Lung Cancer Screening 09/21/2024 03/25/2024 Covid-19 Vaccine (5 - 2024-2 6 season) 2024 03/02/2022, 10/11/2021, 08/26/2020, Additional history exists Influenza Vaccine (#1) 2024 3, 01/10/2022, 03/05/2021 eGFR 10/16/2025 10/16/2024, 06/28, 08/03/2023, Additional history exists Albumin Creatinine Ratio, Urine 10/17/2025 DTaP/Tdap/Td Vaccine (2 - Td or Tdap) 12/16/2029 12/17/2019 Hepatitis C Screening Completed 12/15/2021 Medical Devices Implanted Type Area Quality Lab Technician Device Identifier Shelf Expiration Date Model / Serial / Lot Shunt Implanted:Qty: 2 Shunt Brain Synovis ControlCircle [place] Microvascular 3.5mm Ring Pin Protective Cover Jaw Assembly Latex Free [id number] - [id number] Implanted:Qty: 1 on 2022 by Ricci Shelton MD at [facility] Mandible Synovis Kedzoh AllFlirtomatic [id number] 04/12/2026 [id number] / / [id number] Álvaro Craniomaxillofaci al 2mm Primary Reconstruction Customize Mandible Bebeto Plate Bone [id number] - [id number] Implanted:Qty: 1 on 2022 by Ricci Shelton MD at [facility] Mandible [place] Craniomaxillofacial [id number] / / [place] Craniomaxillofaci al Leibinger [place] 2 2.3mm 6mm Lock Cross Pin Maxillofacial [id number] - [id number] Implanted:Qty: 1 on 2022 by Ricci Shelton MD at [facility] Mandible Álvaro Craniomaxillofacial [id number] / / [place] Craniomaxillofaci al Leibinger [place] 2 2.3mm 8mm Lock Cross Pin Maxillofacial [id number] - [id number] Implanted:Qty: 2 on 2022 by Ricci Shelton MD at [facility] Mandible Álvaro Craniomaxillofacial [id number] / / Álvaro Craniomaxillofaci al Leibinger [place] 2 2.3mm 12mm Lock Cross Pin Maxillofacial [id number] - [id number] Implanted:Qty: 3 on 2022 by Ricci Shelton MD at [facility] Mandible [place] Craniomaxillofacial [id number] / / [place] Craniomaxillofaci al Leibinger [place] 2 2mm 6mm Self Tap Cross Pin Maxillofacial 50 - [id number] Implanted:Qty: 4 on 2022 by Ricci Shelton MD at [facility] Mandible Álvaro Craniomaxillofacial 50 / / Álvaro Craniomaxillofaci al Leibinger [place] 2 2mm 6mm Lock Cross Pin Maxillofacial Screw 50 - [id number] Implanted:Qty: 1 on 2022 by Ricci Shelton MD at [facility] Mandible [place] Craniomaxillofacial 50 / / Explanted Type Area Quality Lab Technician Device Identifier Shelf Expiration Date Model / Serial / Lot [place] Craniomaxillofaci al Leibinger [place] 2 2mm 8mm Self Tap Cross Pin Maxillofacial 50 - [id number] Explanted:Qty: 4 on 2022 at [facility] Mandible [place] Craniomaxillofacial 50 / / Álvaro Craniomaxillofaci al Leibinger [place] 2 2.3mm 8mm Self Tap Cross Pin Maxillofacial [id number] - [id number] Explanted:Qty: 1 on 2022 at [facility] Mandible [place] Craniomaxillofacial [id number] / / [employer] Probe Doppler 17.4cm Standard Cuff Implantable 20mhz Latex Free Sterile Microvascular Anastomoses Carmen [id number] - [id number] Implanted:Qty: 1 on 2022 by Ricci Shelton MD at [facility] Explanted:Qty: 1 on 02/14/2022 by Marie Parr PA Right: Neck [employer] [id number] 10/27/2024 [id number] / / [id number] Procedures Procedure Name Priority Date/Time Associated Diagnosis Comments ECG 12-LEAD Routine 10/29/2024 10:45 AM CDT 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, unspecified whether angina present NOTE Routine 10/17/2024 8:23 AM CDT URINALYSIS AND REFLEX TO MICROSCOPIC Routine 10/17/2024 8:23 AM CDT ALBUMIN CREATININE RATIO, URINE Routine 10/17/2024 8:23 AM CDT Age-related osteoporosis without current pathological fracture VITAMIN D 25 HYDROXY Routine 10/16/2024 3:22 PM CDT PTH Routine 10/16/2024 3:22 PM CDT C TELOPEPTIDE (CTX) Routine 10/16/2024 3:22 PM CDT ALKALINE PHOSPHATASE, BONE SPECIFIC Routine 10/16/2024 3:22 PM CDT RENAL FUNCTION PANEL Routine 10/16/2024 3:22 PM CDT DEXA TBS AXIAL SKELETON BONE DENSITY 1 OR MORE SITES Schedule Routine, Read Routine (OP Routine) 10/16/2024 12:16 PM CDT Age-related osteoporosis without current pathological fracture CT LUNG CANCER SCREENING Schedule Routine, Read Routine (OP Routine) 03/25/2024 12:46 PM DELIVERY ENGINEER Nicotine dependence, cigarettes, uncomplicated POCT HEMOGLOBIN A1C Routine 08/07/2023 3:17 PM CDT Type 2 diabetes mellitus with hyperglycemia, without long-term current use of insulin (HCC) LIPID PANEL STAT 02/15/2022 2:00 PM DELIVERY ENGINEER HEPATITIS PANEL, ACUTE Routine 12/15/2021 11:19 PM CDT from Last 3 Months or Most Recently Relevant to Health Maintenance Results * ECG 12 lead (10/29/2024 10:45 AM CDT) us Riky Go MD ECG ORDERABLES Final Resul t * NOTE (10/17/2024 8:23 AM CDT) Note [facility] Comment: This urine was analyzed for the presence of WBC, RBC, bacteria, casts, and other formed elements. Only those elements seen were reported. 10/17/2024 8:23 AM CDT 10/17/2024 4:36 PM CDT Narrative [facility] - 10/18/2024 7:12 AM CDT SPLIT 10/16/2024 FROM [id number] us Paola Willard SHOP SUPERINTENDENT LAB BLOOD ORDERABLES Final Re sult [facility] [address] [place] [address] * (ABNORMAL) Urinalysis reflex to microscopic (10/17/2024 8:23 AM CDT) Color, ur YELLOW YELLOW [facility] Appearance, ur CLEAR CLEAR [facility] Specific gravity 1.026 1.001 - 1.035 [facility] pH, ur 8.5(H) 5.0 - 8.0 [facility] Glucose, ur 3+(A) NEGATIVE [facility] Bilirubin, ur NEGATIVE NEGATIVE [facility] Ketones, ur NEGATIVE NEGATIVE [facility] Blood, ur NEGATIVE NEGATIVE [facility] Protein, ur, quant TRACE(A) NEGATIVE [facility] Nitrites, ur NEGATIVE NEGATIVE [facility] Leukocyte esterase, ur NEGATIVE NEGATIVE [facility] WBC, ur NONE SEEN < OR = 5 /HPF [facility] RBC, ur NONE SEEN < OR = 2 /HPF [facility] Epithelial cells, squamous, ur 0-5 < OR = 5 /HPF [facility] Bacteria, ur, quant NONE SEEN NONE SEEN /HPF [facility] Hyaline cast NONE SEEN NONE SEEN /LPF [facility] 10/17/2024 8:23 AM CDT 10/17/2024 4:36 PM CDT Narrative [facility] - 10/18/2024 7:12 AM CDT SPLIT 10/16/2024 FROM [id number] Paola Willard SHOP SUPERINTENDENT LAB URINE ORDERABLES Final Re sult Performing Organization Address [facility] Co de Phone Number [facility] [address] [place] [address] * Albumin Creatinine Ratio, Urine (10/17/2024 8:23 AM CDT) Creatinine, ur 67 20 - 275 mg/dL [facility] Microalbumin, ur 0.8 See Note: mg/dL [facility] Comment: Reference Range: Reference Range Not established Microalbumin/creat ratio 12 <30 mg/g creat [facility] Comment: The ADA defines abnormalities in albumin excretion as follows: Albuminuria Category Result (mg/g creatinine) Normal to Mildly increased <30 Moderately increased 30-299 Severely increased > OR = 300 The ADA recommends that at least two of three specimens collected within a 3-6 month period be abnormal before considering a patient to be within a diagnostic category. Urine 10/17/2024 8:23 AM CDT 10/17/2024 4:36 PM CDT Narrative [facility] - 10/18/2024 7:12 AM CDT SPLIT 10/16/2024 FROM [id number] us Paola Willard NP LAB URINE ORDERABLES Final Re sult Performing Organization Address [facility]/ZIP Co de Phone Number [facility] [address] [place] [address] * C-Telopeptide, serum (10/16/2024 3:22 PM CDT) C telopeptide 228 pg/mL [facility], Comment: Reference Range: NOT ESTABLISHED Adult Female Reference Ranges for C-Telopeptide (CTx): 18-29 years: 64-640 pg/mL 30-39 years: 60-650 pg/mL 40-49 years: 50-465 pg/mL >49 years: Not Established No reference range is provided for postmenopausal women because of the increased rate of bone turnover post-menopause. It is recommended that results for postmenopausal women be compared to the premenopausal reference range as this will give a better indication of their rate of bone loss. For additional information, please refer to http://education.[employer]faq/PFU992 (This link is being provided for informational/educational purposes only.) 10/16/2024 3:22 PM CDT 10/16/2024 3:23 PM CDT Narrative [facility] - 10/19/2024 3:35 PM CDT PATIENT UNABLE TO VOID; ADVISED TO RETURN FOR COLLECTION. Paola Willard SHOP SUPERINTENDENT LAB BLOOD ORDERABLES Final Re sult [facility], [address] [place] [address] * Alkaline phosphatase, bone specific (10/16/2024 3:22 PM CDT) Alk phos, bone 10.5 5.6 - 29.0 mcg/L [facility], 10/16/2024 3:22 PM CDT 10/16/2024 3:23 PM CDT Narrative [facility] - 10/19/2024 3:35 PM CDT PATIENT UNABLE TO VOID; ADVISED TO RETURN FOR COLLECTION. us Poala Willard SHOP SUPERINTENDENT LAB BLOOD ORDERABLES Final Re sult [facility], [address] [place] [address] * Vitamin D 25 hydroxy (10/16/2024 3:22 PM CDT) Vitamin D 25-OH 44 30 - 100 ng/mL [facility] Comment: Vitamin D Status 25-OH Vitamin D: Deficiency: <20 ng/mL Insufficiency: 20 - 29 ng/mL Optimal: > or = 30 ng/mL For 25-OH Vitamin D testing on patients on D2-supplementation and patients for whom quantitation of D2 and D3 fractions is required, the Quest[facility]ure[facility](TM) 25-OH VIT D, (D2,D3), LC/MS/MS is recommended: order code 80398 (patients >2yrs). See Note 1 Note 1 For additional information, please refer to http://education.[employer]/faq/PXC562 (This link is being provided for informational/ educational purposes only.) 10/16/2024 3:22 PM CDT 10/16/2024 3:23 PM CDT Narrative [facility] - 10/19/2024 3:35 PM CDT PATIENT UNABLE TO VOID; ADVISED TO RETURN FOR COLLECTION. Paola Willard SHOP SUPERINTENDENT LAB BLOOD ORDERABLES Final Re sult Performing Organization Address City/[facility]/ZIP Co de Phone Number [facility] [address] [place] [address] * (ABNORMAL) PTH (10/16/2024 3:22 PM CDT) Parathyroid hormone, intact 119(H) 16 - 77 pg/mL [facility] Comment: Interpretive Guide Intact PTH Calcium ------- Normal Parathyroid Normal Normal Hypoparathyroidism Low or Low Normal Low Hyperparathyroidism Primary Normal or High High Secondary High Normal or Low Tertiary High High Non-Parathyroid Hypercalcemia Low or Low Normal High 10/16/2024 3:22 PM CDT 10/16/2024 3:23 PM CDT Narrative [facility] - 10/19/2024 3:35 PM CDT PATIENT UNABLE TO VOID; ADVISED TO RETURN FOR COLLECTION. Paola Willard NP LAB BLOOD ORDERABLES Final Re sult [facility] [address] [facility] [place] [address] * (ABNORMAL) Renal function panel (10/16/2024 3:22 PM CDT) Glucose 94 65 - 99 mg/dL [facility] Comment: Fasting reference interval BUN 23 7 - 25 mg/dL [facility] Creatinine 1.08(H) 0.50 - 1.03 mg/dL [facility] eGFR 59(L) > OR = 60 mL/min/1.7 3m2 [facility] BUN/creat ratio 21 6 - 22 (calc) [facility] Sodium 140 135 - 146 mmol/L [facility] silvina Tom Potassium, pl 4.8 3.5 - 5.3 mmol/L [facility] Tom Chloride 103 98 - 110 mmol/L [facility] Tom CO2 29 20 - 32 mmol/L [facility] Calcium 9.3 8.6 - 10.4 mg/dL [facility] silv[facility] Santos Phosphorus, sr 2.8 2.5 - 4.5 mg/dL [facility] Tom Albumin 4.5 3.6 - 5.1 g/dL [facility] sil[facility] Santos 10/16/2024 3:22 PM CDT 10/16/2024 3:23 PM CDT Narrative [facility] - 10/19/2024 3:35 PM CDT PATIENT UNABLE TO VOID; ADVISED TO RETURN FOR COLLECTION. Paola Willard NP LAB BLOOD ORDERABLES Final Re [facility] [address] [place] [address] * Dexa TBS Axial Skeleton Bone Density 1 or more sites (10/16/2024 12:16 PM CDT) Anatomical Region Laterality Modality Wrist, Body N/A Radiographic Yani ging Narrative 10/16/2024 3:40 PM CDT Patient Name: Bev Grossman Date of : 1965 Date of scan: 10/16/2024 Bone mineral density was performed on a [employer] Densitometer. Based on machine cross-calibration and precision studies the least significant changes of this densitometer is 0.024 g/cm2 at the spine, 0.020 g/cm2 at the total proximal femur, and 0.014g/cm2 at the forearm. HISTORY: This is a 59 y.o. postmenopausal female with a history of asthma, low bone mass, and vitamin D deficiency. She reports that she has been smoking cigarettes and cigars. She started smoking about 49 years ago. She has a 48.7 pack-year smoking history. She has never used smokeless tobacco. Currently on treatment with vitamin D and diuretics, previously treated with alendronate (Fosamax), and current complaint of back pain and neck pain. INDICATIONS: Menopause status, history of prior vertebral fracture, vitamin D deficiency, and history of low bone mass. FINDINGS: BONE MINERAL DENSITY OF THE LUMBAR SPINE Bone Mineral Density (BMD) of the lumbar spine was measured from L1-L4 and the average density was calculated to be 0.886 gm/cm2. This corresponds to a T-score (standard deviations from the mean of young adults) of -1.3. When compared to the previous study of 08/03/2023 there has been a -0.101 gm/cm (-10.2%) decrease in bone density that is considered significant. BONE MINERAL DENSITY OF THE PROXIMAL FEMUR Bone Mineral Density (BMD) of the left hip total was found to be 0.856 gm/cm2. This corresponds to a T-score standard deviations from the mean of young adults of -0.7. Femoral neck is 0.756 gm/cm2 with a T-score (standard deviations from the mean of young adults) of -0.8. When compared to the previous study of 08/03/2023 there has been no significant changes in bone density. BONE MINERAL DENSITY OF THE FOREARM Bone Mineral density (BMD) of the left proximal 1/3 of the radius measures 0.626 gm/cm2. This corresponds to a T-score (standard deviations from the mean of young adults) of -1.1. When compared to the previous study of 08/03/2023 there has been a -0.048 gm/cm (-7.2%) decrease in bone density that is considered significant. A forearm bone density study was performed in addition to the routine study due to the need to provide a comparison to the previous exam. SUMMARY: Bone mineral density shows evidence of low bone mass at the lumbar spine and forearm and moderately increased fracture risk (Osteopenia). There has been a significant decrease in bone density since previous measurement. L3 excluded from bone mineral density analysis of the lumbar spine due to bone density being more than 1 standard deviation discrepant relative to one adjacent vertebra. Clinical correlation is recommended. The lumbar spine Trabecular Bone Score is 0.838 which suggests degraded bone microarchitecture compared to the general population. Final decisions regarding diagnostic or therapeutic recommendations should include BMD, TBS, additional clinical risk factors as well the clinical context of the patient. Please see attached TBS results for further details. Please note that all previous lumbar and hip scans were reanalyzed for correct IVY. ADDITIONAL COMMENTS: Postmenopausal Women and Men Over 50: Diagnostic criteria: Osteoporosis: BMD at or below -2.5 T-score; Osteopenia (low bone mass): BMD between -1.0 and -2.5 T-score. If the patient has a history of a fragility fracture, a fracture that occurred with trauma equivalent to a fall from a standing position or less, then the diagnosis is osteoporosis regardless of bone density. The history and data sections of the bone mineral density scan were prepared by Marija Ayers(Varun)(Amy)(BD) CBDT who is accredited by the International Society of Clinical Densitometry. The overall patient assessment and scan interpretation were performed by Carlos Manuel Raya M.D. who is certified by the International Society of Clinical Densitometry. [id number] us Paola Willard NP IMG DXA PROCEDURES Edited Res ult - Final * CT Lung Cancer Screening (03/25/2024 12:46 PM DELIVERY ENGINEER) Anatomical Region Laterality Modality Chest N/A Computed Tomogra phy 03/26/2024 9:54 AM DELIVERY ENGINEER Narrative 03/26/2024 10:03 AM DELIVERY ENGINEER EXAM DESCRIPTION: CT LUNG CANCER SCREENING REASON [...] Almita Miller D.O. PS: PS Report ID: [id number] Reading Location: [id number] Procedure Note Almita Miller, DO - 03/26/2024 [...] Almita Miller D.O. PS: PS Report ID: [id number] Reading Location: [id number] Ethan Leung MD IM CT PROCEDURES Final Result * (ABNORMAL) POCT hemoglobin A1c (08/07/2023 3:17 PM CDT) Hemoglobin A1C, POC 5.9 % Capillary blood 08/07/2023 3 :17 PM CDT Briana Santana MD POINT OF CARE TEST ORDERABLES Fi nal Result * (ABNORMAL) Lipid panel (02/15/2022 2:00 PM DELIVERY ENGINEER) Cholesterol 161 30 - 199 mg/dL [facility] Comment: Interpretive Data Ages < or [...] revised on 2017. Triglycerides 253(H) <=149 mg/dL [facility] Comment: Interpretive Data Ages < or [...] on 2017. HDL 42 >=40 mg/dL [facility] Comment: Interpretive Data Ages < or [...] on 2017. LDL, calculated 68 <=129 mg/dL [facility] Comment: Interpretive Data Ages < [...] revised on 2017. Non-HDL Cholesterol 119 mg/dL [facility] Comment: Interpretive Data Ages < [...] last revised on 2017. Chol/HDL ratio 4 [facility] Blood 02/15/2022 2:00 PM DELIVERY ENGINEER 02/15/2022 5:52 PM DELIVERY ENGINEER Neri Loco MD LAB BLOOD ORDERABLES Fi nal Result [facility] Department [place] [address] * Hepatitis panel, acute (12/15/2021 11:19 PM CDT) Hep A IgM Nonreactive Nonreactive Comment: Interpretive Data: If Hep A IgM Ab is reported as Equivocal, a new sample should be drawn in two weeks for testing. Current interpretive data was last revised on 19. Hep B core IgM Nonreactive Nonreactive [facility] Comment: Interpretive Data If HepB Core IgM Ab is reported as Equivocal, a new sample should be drawn in two weeks for testing. Current interpretive data was last revised on 19. Hep C Ab Nonreactive Nonreactive [facility] Comment:Antibodies to HCV no t detected. Does NOT exclude the possibility of recent exposure to HCV. HepBsAg Nonreactive Nonreactive [facility] Blood 12/15/2021 11:1 9 PM CDT 12/16/2021 12:30 AM CDT us Orly Fine MD LAB MICROBIOLOGY - GENERAL O RDERABLES Edited Result - Final [facility] Department [place] [address] from Last 3 Months or Most Recently Relevant to Health Maintenance Additional Health Concerns Infection Onset Date Last Indicated MDR gram neg/ESBL 2022 2022 Insurance [facility] Advance Directives For more information, please contact: [phone] * Full Code (Latest Code Status on File) Date Activated Date Inactivated Comments 04/26/2022 9:48 PM 05/03/2022 6:39 PM * Full Code Date Activated Date Inactivated Comments 2022 9:27 PM 02/14/2022 9:56 PM * Full Code Date Activated Date Inactivated Comments 12/13/2021 5:40 PM 12/21/2021 6:14 PM * Full Code Date Activated Date Inactivated Comments 01/22/2020 1:18 PM 01/22/2020 10:15 PM Care Teams Generator Rebuilder Relationship Specialty Start Date End Date Jorge Luis Hill MD PCP - General 04/30/18
--- OUTSIDE RECORDS SUMMARY | 2024-12-02 14:28 | XMS_ITS | Clinical Summary ---
Author Organization [facility] Address [facility] [place] [address] Care Team Providers Care Continuous Improvement Engineer Name Role Phone Jorge Luis Hill MD Primary Care Provider [phone] Allergies No known active allergies Medications rosuvastatin [...] capsule 2 Active vitamin D2, ergocalciferol , 68449 UNITS capsule 2 Active escitalopram 20 MG [...] Comments Blood Pressure 106/76 05/05/2021 12:15 PM REGISTERED LAND SURVEYOR Pulse 83 05/05/2021 12:15 PM REGISTERED LAND SURVEYOR Temperature 36.1 C (96.9 F) 05/05/2021 11:58 AM REGISTERED LAND SURVEYOR Respiratory Rate 14 05/05/2021 12:15 PM REGISTERED LAND SURVEYOR Oxygen Saturation 94% 05/05/2021 12:15 PM REGISTERED LAND SURVEYOR Inhaled Oxygen Concentration - - Weight 108.4 kg (239 lb) 05/05/2021 10:03 AM REGISTERED LAND SURVEYOR Height 157.5 cm (5' 2) 05/05/2021 10:03 AM REGISTERED LAND SURVEYOR Body Mass Index 43.71 05/05/2021 10:03 AM REGISTERED LAND SURVEYOR Plan of Treatment Health Maintenance Due Date Last Done Comments Annual Physical 02/04/1968 Hepatitis C 1983 Pneumococcal Vaccine: 50+ Years (1 of 2 - PCV) 02/04/1984 Mammogram Screening 2005 Zoster Vaccines (1 of 2) 2015 COVID-19 Vaccine (3 - 2024-2 6 season) 2024 08/26/2020, 08/05/2020 Influenza Adult (#1) 2024 03/05/2021 DTaP, Tdap and Td Vaccines ( [...] Diagnosis Comments COLONOSCOPY Routine 05/05/2021 11:05 AM REGISTERED LAND SURVEYOR from Last 3 Months or Most Recently Relevant to Health Maintenance Results * Colonoscopy (05/05/2021 11:05 AM REGISTERED LAND SURVEYOR) Estuardo Arriola MD - 05/05/2021 11:05 AM REGISTERED LAND SURVEYOR Estuardo Wells MD 05/05/2021 12:05 PM ESTUARDO [...] the left lateral decubitus position, the Olympus [id number] colonoscope was introduced into the rectum and [...] of liver 04-14-2021 but was inpatient at [facility] - Will check to see if she had CT scan while inpatient Thank you for allowing me to care for your patient. She will follow-up with Dr. Hill as needed. Estuardo Wells M.D. Cc: Dr. Nithin Hill Estuardo Wells MD GI PROCEDURE ORDERABLES Fin al Result from Last 3 Months or Most Recently Relevant to Health Maintenance Insurance Care Teams Continuous Improvement Engineer Relationship Specialty Start Date End Date Jorge Luis Hill MD [address] [place] [id number] PCP - General FAMILY PRACTICE 11/25/19
--- OUTSIDE RECORDS SUMMARY | 2024-12-02 14:28 | XMS_ITS | Encounter Summary ---
Author Organization [facility] Address [address] [place] [address] Phone Care Team Providers Care Supervisor Counseling And Guidance Name Role Phone Jorge Luis Hill MD Primary Care Provider [phone] Encounter Details Date Type Department Care Team (Late st Contact Info) Description 10/22/2024 Results Follow-Up [facility] [address] [facility] Advanced Medicine 13th [place] [address] [place] [id number] Paola Willard, BEVERLY [address] [facility] [address] [place] [address] [id number] Albumin Creatinine Ratio, Urine, Urinalysis reflex to microscopic, NOTE, Additional followed-up results: 5 Social History Tobacco Use Types Packs/Day Years Used Date Smoking Tobacco: Every Day Cigarettes 1 48.7 Started: 02/27/1975; Last attempted to quit: 11/2023 Cigars Smokeless Tobacco: Never Comments:Formerly smoked 1.5 - 2 ppd 07/2023 [...] often do you attend chur ch or buddhism services? Never 12/22/2021 Do you belong to any clubs o r organizations such as sikh groups, unions, fraternal or athletic groups, or [...] place to sleep or slept in a alf (including now)? 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
--- OUTSIDE RECORDS SUMMARY | 2024-12-02 14:28 | XMS_ITS | Clinical Summary ---
Author Organization [facility] Address [address] [facility] [place] [address] Care Team Providers Care Icebox Worker Name Role Phone Jorge Luis Hill MD Primary Care Provider [phone] Source Comments [facility],non-owned Affiliates and Associated Physician Practices is amultiple site organization consisting of ambulatory clinics and hospital sitesin [place], [place], [place] and [place]. This disclosure is being madepursuant to the Care Everywhere program and may not contain all information available regarding this patient. Last updated 17.[facility] Allergies No known active allergies Medications * [...] naloxone HCl (Narcan) 4 MG/0.1ML nasal spray [place] 40 (forty) sprays into the [...] Active Problems No known active problems Immunizations Immunization Administration Dates Next Due INFLUENZA [...] on file Legal Sex Female 7:26 PM SYSTEM SALES CONSULTANT Gender Identity Not on file Sexual Orientation Not on file Last Filed Vital Signs Vital Sign Reading Time Taken Comments Blood Pressure 155/92 03/24/2023 2:17 PM SYSTEM SALES CONSULTANT Pulse 101 03/24/2023 2:17 PM SYSTEM SALES CONSULTANT Temperature 36.7 C (98 F) 03/24/2023 2:17 PM SYSTEM SALES CONSULTANT Respiratory Rate 18 03/24/2023 2:17 PM SYSTEM SALES CONSULTANT Oxygen Saturation 96% 03/24/2023 2:17 PM SYSTEM SALES CONSULTANT Inhaled Oxygen Concentration - - Weight 84.3 kg (185 lb 12.8 oz) 03/24/2023 2:17 PM SYSTEM SALES CONSULTANT Height 162.6 cm (5' 4) 03/24/2023 2:17 PM SYSTEM SALES CONSULTANT Body Mass Index 31.89 03/24/2023 2:17 PM SYSTEM SALES CONSULTANT Plan of Treatment Health Maintenance Due Date [...] (1 of 2) 2015 MAMMOGRAM 11/14/2020 11/14/2018 DEPRESSION SCREENING 02/28/2024 COVID-19 VACCINE ( season) 2024 03/02/2022, 10/11/2021, 08/26/2020, Additional history exists INFLUENZA VACCINE (#1) 2024 3, 01/10/2022, 03/05/2021 DTAP/TDAP/TD VACCINES (2 - Td [...] to complete this topic Insurance [facility] Care Teams Icebox Worker Relationship Specialty Start Date End Date Jorge Luis Hill MD [address] [place] [address] [address] [place] [address] PCP - General 02/10/17
--- OUTSIDE RECORDS SUMMARY | 2024-12-02 14:29 | XMS_ITS | Clinical Summary ---
Author Organization [facility] Address [address] [facility] [address] Care Team Providers Care Other Spatial Scientist Name Role Phone Jorge Luis Hill MD Primary Care Provider [phone] Medications PROAIR HFA 90 mcg/actuation inhaler INHALE [...] mg tablet Active naloxone (Narcan) 4 mg/spray [place], Non-Aerosol Narcan 4 mg/actuation nasal spray 03/18/19 [...] Insurance [employer] Care Teams Other Spatial Scientist Relationship Specialty Start Date End Date Jorge Luis Hill MD PCP - General Emergency Medicine 05/30/18
--- OUTSIDE RECORDS SUMMARY | 2024-12-02 14:29 | XMS_ITS | Patient Health Record ---
Author Organization [facility] [employer] Address [address] [facility] [address] [place] [address] Care Team Providers Care Absorption Operator Name Role Phone Darrius Chacon Unavailable [phone] Reason For Referral No Information Plan Of Treatment No Information
--- OUTSIDE RECORDS SUMMARY | 2024-12-02 14:29 | XMS_ITS | Clinical Summary ---
Author Organization [facility] Address [address] [address] Phone Care Team Providers Care Prop Attendant Name Role Phone Jorge Luis Hill MD Primary Care Provider Allergies No known active allergies Medications alendronate (FOSAMAX) 70 MG tablet Take 70 [...] (one) time each day before breakfast. Active fluticasone-vibha meterol (ADVAIR DISKUS) 500-50 MCG/DOSE diskus inhaler Inhale [...] 40 mg by mouth every night. Active Cholecalciferol (Vitamin D3) 1.25 MG (87467 UT) capsule Take by mouth per week Active Active Problems Problem Noted Date Diagnosed Date Renal insufficiency 09/03/2024 Diabetes mellitus 09/03/2024 Essential hypertension 09/03/2024 Hypercalcemia 08/27/2018 Obstructive sleep apnea 07/11/2018 Impaired glucose tolerance 07/11/2018 Resolved Problems Problem Noted Date Diagnosed Date Resolved Date Asthma 07/11/2018 09/03/2024 Chronic obstructive pulmonary disease 07/11/2018 09/03/2024 Family History Medical History Relation Comments Diabetes Father Hypertension Father Hypertension Mother Relation Status Comments Father Mother Social History Tobacco Use Types Packs/Day Years Used Date Smoking Tobacco: Every Day Cigarettes 1 38 Smokeless Tobacco: Never Tobacco Cessation:Ready to Q uit: Not Asked; Counseling Given: Not Answered Alcohol Use Standard Drinks/Week Comments Yes 0 (1 standard drink = 0.6 oz pur e alcohol) occasionally Comments Unknown Sex and Gender Information Value Date Recorded Sex Assigned at Not on file Legal Sex Female 1:50 PM MDT Gender Identity Not on file Sexual Orientation Not on file Last Filed Vital Signs Vital Sign Reading Time Taken Comments Blood Pressure 109/79 08/28/2018 11:11 AM CDT Pulse 81 08/28/2018 11:11 AM CDT Temperature - - Respiratory Rate - - Oxygen Saturation - - Inhaled Oxygen Concentration - - Weight 86.6 kg (191 lb) 08/28/2018 11:11 AM CDT Height 157.5 cm (5' 2) 08/28/2018 11:11 AM CDT Body Mass Index 34.93 08/28/2018 11:11 AM CDT Plan of Treatment Health Maintenance Due Date Last Done Comments Diabetic Foot Exam 1975 Ophthalmology Exam 1975 Pneumococcal PPSV23 Highest Risk Adult (1 of 3 - PCV13) 02/04/1984 Influenza Vaccine (#1) 2024 3, 01/10/2022, 03/05/2021 Insurance Care Teams Prop Attendant Relationship Specialty Start Date End Date Jorge Luis Hill MD PCP - General Family Medicine 08/28/18
== END 2024-12-02 13:30 | disposition home or self-care (01) ==
LOC: ANHSURGERY 13:33
PROVIDERS: Anesthesiology; PCP Emergency Medicine; Visit Provider Anesthesiology Pain Medicine
DX: D64.9 Anemia, unspecified (principal); E11.9 Type 2 diabetes mellitus without complications
CPT/HCPCS: 36415; 80048; 85014; 85018

== ENCOUNTER 2024-12-03 00:13 | Day surgery (SDC) | payer OTHER, SELFPAY ==
[2024-11-29 12:42] VITALS: BMI 31.9
--- NOTE | 2024-11-29 12:57 | SUR.PREOP ---
[facility] has started construction of its new state of the art ER which will open Spring 2026. With this, we anticipate parking may be a challenge for some our surgical patients and families. Parking spaces are limited but are available for all Surgical, obstetrics, and ER patients sharing this lot. If you arrive and find you are having a hard time finding a parking space, please note that we understand the challenges, please drive around the hospital and park near Hospital Entrance 1. When you enter this entrance, you can ask a volunteer to direct or take you back to the surgical waiting area to check in. We appreciate everyone?s understanding of these expected challenges while we build for your future. Report to the Outpatient Waiting Room, entrance under the green pavilion located off [address], at time _6am__ on date _12.03.24 . Planned Procedure Time: _730am.? Time changes happen often and if your time is changed the preop area will call you the afternoon before. - You and your visitor will be asked to self-screen and do not enter if you have any COVID symptoms. Please call surgeon if you need to reschedule. - A mask is optional within the hospital at this time. Patients may have clear liquids (water, carbonated beverages, clear teas, apple juice) until 3 hours prior to surgery with a maximum of 20 ounces. - No food from midnight until time of surgery and no smoking, or chewing tobacco (or any form of nicotine). No chewing gum, candy or mints. - Infants may have breast milk until 4 hours before surgery, infant formula 6 hours prior to surgery. - Children will be allowed to drink immediately following surgery.? If applicable, please bring a bottle or sippy cup to assist with drinking. Juice, water, soda, and popsicles are readily available.? For infants on formula, please bring formula the day of surgery.? Pacifiers are allowed. Take only the following medications with a SIP of water on the morning of surgery: acetaminophen, albuterol, symbicort, diltiazem,linzess,metoclopramide, spiriva. DO NOT STOP ANY OF YOUR OTHER PRESCRIPTION MEDICATIONS PRIOR TO SURGERY EXCEPT THE FOLLOWING Hold all vitamins and supplements for 3 days per anesthesiologist. Medications to discontinue per physician Date to take last dose_10.3.25 Please no make-up, nail serbian, hairspray, perfume, deodorant, or body powder the day of surgery.? No jewelry (including any body piercings) or valuables the day of surgery, leave them at home.? Please take a shower or bath the night before, or the morning of, surgery with an antibacterial soap.? Wear comfortable, loose fitting clothing.? Children are encouraged to wear pajamas. - Jewelry must be removed prior to entering the operating room.? Rings and piercings that are not removed may be cut off. - The hospital will not accept responsibility for valuables.? - Please leave all valuables, including medications, at home the day of surgery. If you are going home after surgery, a licensed tow bar driver must drive you home.? - NO public transportation without another adult if you receive anesthesia. - We recommend that an adult stay with you for 24 hours following discharge. - We also recommend that you do not drive, make important decision, drink alcoholic beverages, or take any drugs that were not prescribed by your health care provider for at least 24 hours after your discharge time. For Pediatric surgeries, we recommend two adults accompany the child home. Follow any additional instructions given to you from your surgeon. Telephone instructions given to __Bev____and asked if any additional questions and then verbalized understanding. Patient advised to call surgeon office or pre surgery nurse liaison [phone] if any additional questions.
--- NOTE | ~2024-12-03 | XR_ITS ---
EXAMINATION: XR fluoroscopy no charge DATE: 12/03/2024 08:15 INDICATION: Lumbar thermal radiofrequency ablations TECHNIQUE: 14 fluoroscopic images of the lumbar spine were obtained during procedure performed by Dr. Mariscal. Radiologist was not present for the imaging or procedure. The amount of fluoroscopy time used during this procedure was 0.8 minutes. Total DAP was 9.36 Gycm^2. COMPARISON: None. FINDINGS: Images demonstrate needles advanced with distal tips at the junction of the transverse and superior articular processes bilaterally at L4, L5 and S1 along the course of the bilateral L3, L4 and L5 medial branches respectively. IMPRESSION: 1. Asymmetric procedure at the lumbar spine. See procedure note for further detail. Reviewed, dictated and finalized at location A. IMPRESSION: 1. Asymmetric procedure at the lumbar spine. See procedure note for further det ail.
--- OUTSIDE RECORDS SUMMARY | 2024-12-03 00:15 | XMS_ITS | Encounter Summary ---
Author Organization [facility] Address [address] [place] [address] Phone Care Team Providers Care Public Space Attendant Name Role Phone Jorge Luis Hill MD Primary Care Provider [phone] Encounter Details Date Type Department Care Team (Late st Contact Info) Description 10/22/2024 Results Follow-Up [facility] [address] [facility] Advanced Medicine 13th [place] [address] [place] [address] Paola Willard, BEVERLY [address] [facility] [address] [place] [id number] Albumin Creatinine Ratio, Urine, Urinalysis reflex to [...] often do you attend chur ch or christian services? Never 12/22/2021 Do you belong to any clubs o r organizations such as hoahaoism groups, unions, fraternal or athletic groups, or [...] on file Legal Sex Female 1:34 AM CASK MAKER Gender Identity Not on file Sexual Orientation Not on file documented as of this encounter Plan of Treatment Not on file documented as of this encounter Visit Diagnoses Not on filedocumented in this encounter Additional Health Concerns Infection Onset Date Last Indicated Resolved Time MDR gram neg/ESBL 2022 2022 documented as of this encounter Care Teams Public Space Attendant Relationship Specialty Start Date End Date Jorge Luis Hill MD PCP - General 04/30/18 documented as of this encounter
--- OUTSIDE RECORDS SUMMARY | 2024-12-03 00:15 | XMS_ITS | Encounter Summary ---
Author Organization [facility] Address [address] [place] [address] Phone Care Team Providers Care Nursing Agency Manager Name Role Phone Jorge Luis Hill MD Primary Care Provider [phone] Encounter Details Date Type Department Care Team (Late st Contact Info) Description 05/07/2022 Documentation [facility] Medicine ENT [address] [facility] Advanced Medicine 11th [place] [address] [place] [address] Amadeo Bazzi MD [address] [place] [address] Social History Tobacco Use Types Packs/Day Years [...] week 12/22/2021 How often do you attend [facility] or zoroastrianism services? Never 12/22/2021 Do you belong to any clubs o r organizations such as taoism groups, unions, fraternal or athletic groups, or [...] place to sleep or slept in a penitentiary (including now)? No 12/22/2021 Comments No Sex and Gender Information Value Date Recorded Sex Assigned at Not on file Legal Sex Female 1:34 AM AUTO BODY STRAIGHTENER Gender Identity Not on file Sexual Orientation Not on file documented as of this encounter Plan of Treatment Not on file documented as of this encounter Visit Diagnoses Not on filedocumented in this encounter Additional Health Concerns Infection Onset Date Last Indicated Resolved Time MDR gram neg/ESBL 2022 2022 documented as of this encounter Care Teams Nursing Agency Manager Relationship Specialty Start Date End Date Jorge Luis Hill MD PCP - General 04/30/18 documented as of this encounter
--- OUTSIDE RECORDS SUMMARY | 2024-12-03 00:15 | XMS_ITS | Encounter Summary ---
Author Organization [facility] Address [address] [place] [address] Phone Care Team Providers Care Project Surveyor Name Role Phone Jorge Luis Hill MD Primary Care Provider [phone] Encounter Details Date Type Department Care Team (Late st Contact Info) Description 05/03/2022 Telephone [facility] - [address] [place] [address] Janette Holcomb RN Social History Tobacco Use [...] often do you attend chur ch or judaism services? Never 12/22/2021 Do you belong to [...] on file Legal Sex Female 1:34 AM SEX OFFENDER TREATMENT PROFESSIONAL Gender Identity Not on file Sexual Orientation Not on file documented as of this encounter Plan of Treatment Not on file documented as of this encounter Visit Diagnoses Not on filedocumented in this encounter Additional Health Concerns Infection Onset Date Last Indicated Resolved Time MDR gram neg/ESBL 2022 2022 documented as of this encounter Care Teams Project Surveyor Relationship Specialty Start Date End Date Jorge Luis Hill MD PCP - General 04/30/18 documented as of this encounter
--- OUTSIDE RECORDS SUMMARY | 2024-12-03 00:15 | XMS_ITS | Clinical Summary ---
Author Organization [facility] Address [address] [place] [address] Phone Care Team Providers Care Cab Station Attendant Name Role Phone Jorge Luis Hill MD Primary Care Provider [phone] Allergies No known active allergies Medications aspirin [...] nightly 01/03/20 20 Active cholecalciferol (VITAMIN D-3) 88914 unit tablet Take 1 tablet (50,000 Units [...] use distraction techniques - Information given regarding [place] Tobacco Quit line: [id number] for free services - 5 minutes spent [...] echocardiogram, Assessment & Plan (02/13/2024 11:58 AM MANAGER PATIENT): Continue supplemental oxygen for saturations 90% I have advised her to get a home pulse oximeter and bring it to her next visit for comparison She has a visit with our speech and language clinician upcoming and will likely have an echocardiogram. [...] (01/03/2022): Added automatically from request for surgery [id number] Smoking 12/14/2021 Assessment & Plan (12/19/2021 11:55 [...] months Assessment & Plan (01/14/2022 11:03 AM MANAGER PATIENT): - Pt has completed 4 weeks of [...] tract. If no surgical plan, Resume diet. Restoration Technician re supplements. Pain control with prn tylenol [...] care Assessment & Plan (02/13/2024 11:59 AM MANAGER PATIENT): Continue Symbicort twice daily Continue Spiriva twice [...] 12/13/2021 Assessment & Plan (02/13/2024 11:57 AM MANAGER PATIENT): Continue PAP with all sleep She is aware of the risks of uncorrected sleep apnea Assessment & Plan (12/21/2021 12:03 PM CDT): Exacerbated by BMI 42. Alert, oriented. Outpatient PSG Assessment & Plan (12/13/2021 11:24 AM CDT): Exacerbated by BMI 42. Alert, oriented. Morbid obesity with BMI of 40.0-44.9, adult 11/27 Assessment & Plan (12/14/2021 3:10 PM CDT): BMI 42.07, 104.3kg this admit. Restoration Technician to see noc analyst weight loss management goals with PCP, hx DM, HTN, ELIOT & may benefit from bariatric evaluation. Assessment & Plan (12/13/2021 10:25 AM CDT): BMI 42.07, 104.3kg this admit. Restoration Technician to see senior care weight loss management goals with PCP, hx DM, HTN, ELIOT & may benefit from bariatric evaluation. Pancreatic cyst 01/10/2020 Overview (01/10/2020): Added automatically from request for surgery [id number] Resolved Problems Problem Noted Date Diagnosed Date Resolved Date Nicotine dependence, cigarettes, in remission 02/13/20 24 06/14/2024 Assessment & Plan (02/13/2024 11:57 AM MANAGER PATIENT): Quit in November of 2023 She is due for annual CT chest in February of 2023 Encounters Date Type Department Care Team Description 11/29/2024 1:30 PM CDT Office Visit [facility] Medicine Nephrology [address] 5th [place] [address] [place] [address] Maged Mckeon MD Chronic kidney disease (CKD), stage 2 (Primary Dx); Type 2 diabetes mellitus with hyperglycemia, without long-term current use of insulin (HCC) 11/21/2024 Orders Only [facility] Medicine Nephrology [address] 5th [place] [address] [place] [address] Maged Mckeon MD PRESTON (acute kidney injury) (Primary Dx); Hypertension associated with diabetes (HCC); Type 2 diabetes mellitus with hyperglycemia, without long-term current use of insulin (HCC) 11/07/2024 Telephone [facility] Cardiology [address] [place] [address] Riky Go MD 10/30/2024 1:20 PM CDT Office Visit [facility] Infectious Diseases [address] [place] [address] Aniyah Gooden NP Osteonecrosis of mandible (HCC) (Primary Dx) 10/29/2024 10:45 AM CDT Office Visit [facility] Cardiology [address] [place] [address] Riky Go MD 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 13th [place] [address] [place] [address] Paola Willard NP Albumin Creatinine Ratio, Urine, Urinalysis reflex to microscopic, NOTE, Additional followed-up results: 5 10/22/2024 Orders Only [facility] [address] 13th [place] [address] [place] [address] Paola Willard NP Age-related osteoporosis without current pathological fracture (Primary Dx) 10/16/2024 12:00 PM CDT Office Visit [facility] [address] 13th [place] [address] [place] [address] Paola Willard NP Age-related osteoporosis without current pathological fracture (Primary Dx); Acute kidney injury 10/16/2024 11:30 AM CDT Clinical Support [facility] [address] 13th [place] [address] [place] [address] Post-menopausal (Primary Dx); Age-related osteoporosis without current pathological fracture; Osteopenia of multiple sites 10/16/2024 Telephone [facility] Bone Health [address] Medicine 13th [place] [address] [place] [address] Paola Willard NP 10/10/2024 Telephone [facility] Pul[facility] [place] [address] [place] [address] Ashley Kwon LPN Rf Spiriva, Albuterol inhaler 10/09/2024 Telephone [facility] [address] 13th [place] [address] [place] [address] Paola Willard NP 09/20/2024 Telephone [facility] [address] [place] [address] Demetris Marc from Last 3 Months Immunizations Immunization Administration Dates Next Due Influenza, Quadrivalent, Spl it, Preservative Free, Intramuscular 12/28/2022 Pfizer Sars-Cov-2 Bivalent Vaccination (12+ YRS) 03/02/2022 Surgical History Surgery Date Site/Laterality Comments SECTION 1984, 1988 TOTAL ABDOMINAL HYSTERECTOMY W/ BILATERAL SALPINGOOPHORECTOMY 02/27/1995 - 02/27/1996 CONTROL SYSTEM MANAGER SHUNT INSERTION 02/27/2010 - 02/26/2011 COLONOSCOPY [...] place to sleep or slept in a custodial (including now)? No 12/22/2021 Personal Safety Answer Date Recorded Getting School Help Needed Denies 02/11 Comments No Sex and Gender Information Value Date Recorded Sex Assigned at Not on file Legal Sex Female 1:34 AM MANAGER PATIENT Gender Identity Not on file Sexual Orientation Not on file Obstetrics History Last Filed Vital Signs Vital Sign Reading Time Taken Comments Blood Pressure 106/74 11/29/2024 1:31 PM CDT Pulse 88 11/29/2024 1:31 PM CDT Temperature 37.4 C (99.4 F) 11/29/2024 1:31 PM CDT Respiratory Rate 18 02/12/2024 2:42 PM MANAGER PATIENT Oxygen Saturation 95% 11/29/2024 1:31 PM CDT [...] Completed 12/15/2021 Medical Devices Implanted Type Area Cost Estimating Engineer Device Identifier Shelf Expiration Date Model / Serial / Lot Shunt Implanted:Qty: 2 Shunt Brain Synovis mobile mum [place] Microvascular 3.5mm Ring Pin Protective Cover Jaw Assembly Latex Free [id number] - [id number] Implanted:Qty: 1 on 2022 by Ricci Shelton MD at [facility] Mandible Synovis [place] [employer] [id number] 04/12/2026 [id number] / / [id number] Álvaro Craniomaxillofaci al 2mm Primary Reconstruction Customize Mandible Bebeto Plate Bone [id number] - [id number] Implanted:Qty: 1 on 2022 by Ricci Shelton MD at [facility] Mandible [place] Craniomaxillofacial [id number] / / [place] Craniomaxillofaci al Leibinger [place] 2 2.3mm 6mm Lock Cross Pin Maxillofacial [id number] - [id number] Implanted:Qty: 1 on 2022 by Ricci Shelton MD at [facility] Mandible Álvaro Craniomaxillofacial [id number] / / [place] Craniomaxillofaci al Leibinger [place] 2 2.3mm 8mm Lock Cross Pin Maxillofacial [id number] - [id number] Implanted:Qty: 2 on 2022 by Ricci Shelton MD at [facility] Mandible Álvaro Craniomaxillofacial [id number] / / Álvaro Craniomaxillofaci al Leibinger [place] 2 2.3mm 12mm Lock Cross Pin Maxillofacial [id number] - [id number] Implanted:Qty: 3 on 2022 by Ricci Shelton MD at [facility] Mandible [place] Craniomaxillofacial [id number] / / [place] Craniomaxillofaci al Leibinger [place] 2 2mm 6mm Self Tap Cross Pin Maxillofacial 50 - [id number] Implanted:Qty: 4 on 2022 by Ricci Shelton MD at [facility] Mandible Álvaro Craniomaxillofacial 50 / / Álvaro Craniomaxillofaci al Leibinger [place] 2 2mm 6mm Lock Cross Pin Maxillofacial Screw 50 - [id number] Implanted:Qty: 1 on 2022 by Ricci Shelton MD at [facility] Mandible [place] Craniomaxillofacial 50 / / Explanted Type Area Cost Estimating Engineer Device Identifier Shelf Expiration Date Model / Serial / Lot [place] Craniomaxillofaci al Leibinger [place] 2 2mm 8mm Self Tap Cross Pin Maxillofacial 50 - [id number] Explanted:Qty: 4 on 2022 at [facility] Mandible [place] Craniomaxillofacial 50 / / Álvaro Craniomaxillofaci al Leibinger [place] 2 2.3mm 8mm Self Tap Cross Pin Maxillofacial [id number] - [id number] Explanted:Qty: 1 on 2022 at [facility] Mandible [place] Craniomaxillofacial [id number] / / [employer] Probe Doppler 17.4cm Standard Cuff Implantable 20mhz Latex Free Sterile Microvascular Anastomoses Carmen [id number] - [id number] Implanted:Qty: 1 on 2022 by Ricci Shelton MD at [facility] Explanted:Qty: 1 on 02/14/2022 by Marie Parr PA Right: Neck [employer] [id number] 10/27/2024 [id number] / / [id number] Procedures Procedure Name Priority Date/Time Associated Diagnosis [...] Read Routine (OP Routine) 03/25/2024 12:46 PM MANAGER PATIENT Nicotine dependence, cigarettes, uncomplicated POCT HEMOGLOBIN A1C Routine 08/07/2023 3:17 PM CDT Type 2 diabetes mellitus with hyperglycemia, without long-term current use of insulin (HCC) LIPID PANEL STAT 02/15/2022 2:00 PM MANAGER PATIENT HEPATITIS PANEL, ACUTE Routine 12/15/2021 11:19 PM [...] 10/18/2024 7:12 AM CDT SPLIT 10/16/2024 FROM [id number] us Paola Willard SPINNER CAP FRAME LAB BLOOD ORDERABLES Final Re sult [facility] [address] [place] [address] * (ABNORMAL) Urinalysis reflex to microscopic (10/17/2024 [...] 10/18/2024 7:12 AM CDT SPLIT 10/16/2024 FROM [id number] Paola Willard SPINNER CAP FRAME LAB URINE ORDERABLES Final Re sult Performing Organization Address [facility] Co de Phone Number [facility] [address] [place] [address] * Albumin Creatinine Ratio, Urine (10/17/2024 8:23 [...] 10/18/2024 7:12 AM CDT SPLIT 10/16/2024 FROM [id number] us Paola Willard NP LAB URINE ORDERABLES Final Re sult Performing Organization Address [facility]/ZIP Co de Phone Number [facility] [address] [address] * C-Telopeptide, serum (10/16/2024 3:22 PM CDT) C telopeptide 228 pg/mL [facility], Comment: Reference Range: NOT ESTABLISHED Adult Female [...] loss. For additional information, please refer to http://education.FiftyFiver/faq/IKT720 (This link is being provided for informational/educational purposes only.) 10/16/2024 3:22 PM CDT 10/16/2024 3:23 PM CDT Narrative [facility] - 10/19/2024 3:35 PM CDT PATIENT UNABLE TO VOID; ADVISED TO RETURN FOR COLLECTION. Paola Willard SPINNER CAP FRAME LAB BLOOD ORDERABLES Final Re sult [facility], [address] [place] [address] * Alkaline phosphatase, bone specific (10/16/2024 3:22 PM CDT) Alk phos, bone 10.5 5.6 - 29.0 mcg/L [facility], 10/16/2024 3:22 PM CDT 10/16/2024 3:23 PM CDT Narrative [facility] - 10/19/2024 3:35 PM CDT PATIENT UNABLE TO VOID; ADVISED TO RETURN FOR COLLECTION. us Paola Willard SPINNER CAP FRAME LAB BLOOD ORDERABLES Final Re sult [facility], [address] [place] [address] * Vitamin D 25 hydroxy (10/16/2024 3:22 PM CDT) Vitamin D 25-OH 44 30 - 100 ng/mL [facility] Comment: Vitamin D Status 25-OH Vitamin D: Deficiency: <20 ng/mL Insufficiency: 20 - 29 ng/mL Optimal: > or = 30 ng/mL For 25-OH Vitamin D testing on patients on D2-supplementation and patients for whom quantitation of D2 and D3 fractions is required, the QuestAssureD(TM) 25-OH VIT D, (D2,D3), LC/MS/MS is recommended: order code 66809 (patients >2yrs). See Note 1 Note 1 For additional information, please refer to http://education.Alliqua/faq/VNL722 (This link is being provided for informational/ educational purposes only.) 10/16/2024 3:22 PM CDT 10/16/2024 3:23 PM CDT Narrative [facility] - 10/19/2024 3:35 PM CDT PATIENT UNABLE TO VOID; ADVISED TO RETURN FOR COLLECTION. Paola Willard SPINNER CAP FRAME LAB BLOOD ORDERABLES Final Re sult Performing Organization Address City/[facility]/ZIP Co de Phone Number [facility] [address] [place] [address] * (ABNORMAL) PTH (10/16/2024 3:22 PM CDT) Parathyroid hormone, intact 119(H) 16 - 77 pg/mL [facility] Comment: Interpretive Guide Intact PTH Calcium [...] BLOOD ORDERABLES Final Re sult [facility] [address] [facility] [place] [address] * (ABNORMAL) Renal function panel (10/16/2024 3:22 PM CDT) Glucose 94 65 - 99 mg/dL [facility] Comment: Fasting reference interval BUN 23 7 - 25 mg/dL [facility] Creatinine 1.08(H) 0.50 - 1.03 mg/dL [facility] eGFR 59(L) > OR = 60 mL/min/1.7 3m2 [facility] BUN/creat ratio 21 6 - 22 (calc) [facility] [employer] Tom Sodium 140 135 - 146 mmol/L [facility] Tom Potassium, pl 4.8 3.5 - 5.3 mmol/L [facility] Chloride 103 98 - 110 mmol/L [facility] Tom CO2 29 20 - 32 mmol/L [facility] [employer] [facility] Calcium 9.3 8.6 - 10.4 mg/dL [facility] Santos Phosphorus, sr 2.8 2.5 - 4.5 mg/dL [facility] Tom Albumin 4.5 3.6 - 5.1 g/dL [facility] 10/16/2024 3:22 PM CDT 10/16/2024 3:23 PM CDT Narrative [facility] - 10/19/2024 3:35 PM CDT PATIENT UNABLE TO VOID; ADVISED TO RETURN FOR COLLECTION. Paola Willard NP LAB BLOOD ORDERABLES Final [facility] [address] [place] [address] * Dexa TBS Axial Skeleton Bone Density 1 or more sites (10/16/2024 12:16 PM CDT) Anatomical Region Laterality Modality Wrist, Body N/A Radiographic Yani ging Narrative 10/16/2024 3:40 PM CDT Patient Name: Bev Grossman Date of : 1965 Date of scan: 10/16/2024 Bone mineral density was performed on a HoloBorro Discovery Densitometer. Based on machine cross-calibration and [...] by the International Society of Clinical Densitometry. [id number] us Paola Willard NP IMG DXA PROCEDURES Edited Res ult - Final * CT Lung Cancer Screening (03/25/2024 12:46 PM MANAGER PATIENT) Anatomical Region Laterality Modality Chest N/A Computed Tomogra phy 03/26/2024 9:54 AM MANAGER PATIENT Narrative 03/26/2024 10:03 AM MANAGER PATIENT EXAM DESCRIPTION: CT LUNG CANCER SCREENING REASON [...] Almita Miller D.O. PS: PS Report ID: [id number] Reading Location: [id number] Procedure Note Almita Miller, DO - 03/26/2024 [...] Almita Miller D.O. PS: PS Report ID: [id number] Reading Location: [id number] Ethan Leung MD IM CT PROCEDURES Final Result * (ABNORMAL) POCT hemoglobin A1c (08/07/2023 3:17 PM CDT) Hemoglobin A1C, POC 5.9 % Capillary blood 08/07/2023 3 :17 PM CDT Briana Santana MD POINT OF CARE TEST ORDERABLES Fi nal Result * (ABNORMAL) Lipid panel (02/15/2022 2:00 PM MANAGER PATIENT) Cholesterol 161 30 - 199 mg/dL [facility] Comment: Interpretive Data Ages < or [...] revised on 2017. Triglycerides 253(H) <=149 mg/dL [facility] Comment: Interpretive Data Ages < or [...] on 2017. HDL 42 >=40 mg/dL [facility] Comment: Interpretive Data Ages < or [...] on 2017. LDL, calculated 68 <=129 mg/dL [facility] Comment: Interpretive Data Ages < [...] revised on 2017. Non-HDL Cholesterol 119 mg/dL [facility] Comment: Interpretive Data Ages < [...] last revised on 2017. Chol/HDL ratio 4 [facility] Blood 02/15/2022 2:00 PM MANAGER PATIENT 02/15/2022 5:52 PM MANAGER PATIENT Neri Loco MD LAB BLOOD ORDERABLES Fi nal Result [facility] Department [place] [address] * Hepatitis panel, acute (12/15/2021 11:19 PM CDT) Hep A IgM Nonreactive Nonreactive Comment: Interpretive Data: If Hep A IgM Ab is reported as Equivocal, a new sample should be drawn in two weeks for testing. Current interpretive data was last revised on 19. Hep B core IgM Nonreactive Nonreactive [facility] Comment: Interpretive Data If HepB Core IgM Ab is reported as Equivocal, a new sample should be drawn in two weeks for testing. Current interpretive data was last revised on 19. Hep C Ab Nonreactive Nonreactive [facility] Comment:Antibodies to HCV no t detected. Does NOT exclude the possibility of recent exposure to HCV. HepBsAg Nonreactive Nonreactive [facility] Blood 12/15/2021 11:1 9 PM CDT 12/16/2021 12:30 AM CDT us Orly Fine MD LAB MICROBIOLOGY - GENERAL O RDERABLES Edited Result - Final [facility] [address] [facility] Department [place] [address] from Last 3 Months or Most Recently Relevant to Health Maintenance Additional Health Concerns Infection Onset Date Last Indicated MDR gram neg/ESBL 2022 2022 Insurance [facility] Advance Directives For more information, please contact: [phone] * Full Code (Latest Code Status on File) Date Activated Date Inactivated Comments 04/26/2022 9:48 PM 05/03/2022 6:39 PM * Full Code Date Activated Date Inactivated Comments 2022 9:27 PM 02/14/2022 9:56 PM * Full Code Date Activated Date Inactivated Comments 12/13/2021 5:40 PM 12/21/2021 6:14 PM * Full Code Date Activated Date Inactivated Comments 01/22/2020 1:18 PM 01/22/2020 10:15 PM Care Teams Cab Station Attendant Relationship Specialty Start Date End Date Jorge Luis Hill MD PCP - General 04/30/18
--- OUTSIDE RECORDS SUMMARY | 2024-12-03 00:15 | XMS_ITS | Clinical Summary ---
Author Organization [facility] Address [address] [place] [address] Care Team Providers Care Primary Teaching Assistant Name Role Phone Jorge Luis Hill MD Primary Care Provider [phone] Source Comments [facility],non-owned Affiliates and Associated Physician Practices is amultiple site organization consisting of ambulatory clinics and hospital sitesin [place], [place], [place] and [place]. This disclosure is being madepursuant to the Care Everywhere program and may not contain all information available regarding this patient. Last updated 17.[facility] Allergies No known active allergies Medications * [...] naloxone HCl (Narcan) 4 MG/0.1ML nasal spray [place] 40 (forty) sprays into the nose as [...] on file Legal Sex Female 7:26 PM FREIGHT AGENT Gender Identity Not on file Sexual Orientation Not on file Last Filed Vital Signs Vital Sign Reading Time Taken Comments Blood Pressure 155/92 03/24/2023 2:17 PM FREIGHT AGENT Pulse 101 03/24/2023 2:17 PM FREIGHT AGENT Temperature 36.7 C (98 F) 03/24/2023 2:17 PM FREIGHT AGENT Respiratory Rate 18 03/24/2023 2:17 PM FREIGHT AGENT Oxygen Saturation 96% 03/24/2023 2:17 PM FREIGHT AGENT Inhaled Oxygen Concentration - - Weight 84.3 kg (185 lb 12.8 oz) 03/24/2023 2:17 PM FREIGHT AGENT Height 162.6 cm (5' 4) 03/24/2023 2:17 PM FREIGHT AGENT Body Mass Index 31.89 03/24/2023 2:17 PM FREIGHT AGENT Plan of Treatment Health Maintenance Due Date [...] patient's age to complete this topic Insurance [facility] Care Teams Primary Teaching Assistant Relationship Specialty Start Date End Date Jorge Luis Hill MD [address] [place] [address] [address] [place] [address] PCP - General 02/10/17
--- OUTSIDE RECORDS SUMMARY | 2024-12-03 00:15 | XMS_ITS | Clinical Summary ---
Author Organization [facility] Address [facility] [address] [place] [address] Care Team Providers Care Cdl Bulk Driver Name Role Phone Jorge Luis Hill MD Primary Care Provider [phone] Allergies No known active allergies Medications rosuvastatin [...] capsule 2 Active vitamin D2, ergocalciferol , 11601 UNITS capsule 2 Active escitalopram 20 MG [...] Comments Blood Pressure 106/76 05/05/2021 12:15 PM ORTHO/PROSTHETIC AIDE Pulse 83 05/05/2021 12:15 PM ORTHO/PROSTHETIC AIDE Temperature 36.1 C (96.9 F) 05/05/2021 11:58 AM ORTHO/PROSTHETIC AIDE Respiratory Rate 14 05/05/2021 12:15 PM ORTHO/PROSTHETIC AIDE Oxygen Saturation 94% 05/05/2021 12:15 PM ORTHO/PROSTHETIC AIDE Inhaled Oxygen Concentration - - Weight 108.4 kg (239 lb) 05/05/2021 10:03 AM ORTHO/PROSTHETIC AIDE Height 157.5 cm (5' 2) 05/05/2021 10:03 AM ORTHO/PROSTHETIC AIDE Body Mass Index 43.71 05/05/2021 10:03 AM ORTHO/PROSTHETIC AIDE Plan of Treatment Health Maintenance Due Date [...] Diagnosis Comments COLONOSCOPY Routine 05/05/2021 11:05 AM ORTHO/PROSTHETIC AIDE from Last 3 Months or Most Recently Relevant to Health Maintenance Results * Colonoscopy (05/05/2021 11:05 AM ORTHO/PROSTHETIC AIDE) Estuardo Arriola MD - 05/05/2021 11:05 AM ORTHO/PROSTHETIC AIDE Estuardo Wells MD 05/05/2021 12:05 PM ESTUARDO [...] the left lateral decubitus position, the Olympus [id number] colonoscope was introduced into the rectum and [...] of liver 04-14-2021 but was inpatient at [place] - Will check to see if she had CT scan while inpatient Thank you for allowing me to care for your patient. She will follow-up with Dr. Hill as needed. Estuardo Wells M.D. Cc: Dr. Nithin Hill Estuardo Wells MD GI PROCEDURE ORDERABLES Fin al Result from Last 3 Months or Most Recently Relevant to Health Maintenance Insurance Care Teams Cdl Bulk Driver Relationship Specialty Start Date End Date Jorge Luis Hill MD [address] [place] [id number] PCP - General FAMILY PRACTICE 11/25/19
--- OUTSIDE RECORDS SUMMARY | 2024-12-03 00:16 | XMS_ITS | Clinical Summary ---
Author Organization [facility] Address [address] [place] [address] Care Team Providers Care Client Delivery Manager Name Role Phone Jorge Luis Hill MD Primary Care Provider [phone] Medications PROAIR HFA 90 mcg/actuation inhaler INHALE [...] mg tablet Active naloxone (Narcan) 4 mg/spray [place], Non-Aerosol Narcan 4 mg/actuation nasal spray 03/18/19 [...] Most Recently Relevant to Health Maintenance Insurance [facility] Address: [address] [place] [address] [employer] Care Teams Client Delivery Manager Relationship Specialty Start Date End Date Jorge Luis Hill MD PCP - General Emergency Medicine 05/30/18
--- OUTSIDE RECORDS SUMMARY | 2024-12-03 00:16 | XMS_ITS | Clinical Summary ---
Author Organization [facility] Address [address], [place] [address] Phone Care Team Providers Care Human Resources Generalist Name Role Phone Jorge Luis Hill MD Primary Care Provider [phone] Allergies No known active allergies Medications alendronate [...] night. Active Cholecalciferol (Vitamin D3) 1.25 MG (65949 UT) capsule Take by mouth per week [...] 2024 3, 01/10/2022, 03/05/2021 Insurance Care Teams Human Resources Generalist Relationship Specialty Start Date End Date Jorge Luis Hill MD PCP - General Family Medicine 08/28/18
--- OUTSIDE RECORDS SUMMARY | 2024-12-03 00:16 | XMS_ITS | Patient Health Record ---
Author Organization [facility] Address [address] [facility] [facility] [address] [place] [address] Care Team Providers Care Supervisor Landscape Name Role Phone Darrius Chacon Unavailable [phone] Reason For Referral No Information Plan Of Treatment No Information
[2024-12-03] MEDS: LACTATED RINGERS 1,000 ML 30 ML IV CONT (06:20)
[2024-12-03 06:57] VITALS: BP 112/77; PULSE 96; TEMP 36.5; O2SAT 94; BMI 31.2
--- NOTE | 2024-12-03 07:15 | WPDANESEPPF ---
Anes - Initial Pre Proc Eval Procedure: Operation Date: 12/03/24 07:30 Proposed Procedures p Thermal Radiofrequency Ablation of the Bilateral L3, L4, L5 Medial Branches /Dorsal Rami Supplying the Bilateral L4-5, L5-S1 Facet Joints Under Fluoroscopic Guidance - Preet Mariscal MD Date/Time: 12/03/24 07:15 Surgeon: Preet Mariscal MD Pre Op Diagnosis: Spond Lumbosca Region Patient Data Age: 59 Gender: F Height: 1.6 m Weight: 79.95 kg Last Vital Signs Temp 36.5 C 12/03/24 06:57 Pulse 96 12/03/24 06:57 BP 112/77 12/03/24 06:57 Pulse Ox 94 12/03/24 06:57 O2 Del Method Room Air 12/03/24 06:57 Allergies Allergy/AdvReac Type Severity Reaction Status Date / Time No Known Allergies Allergy Verified 12/03/24 06:56 Home Medications ?Medication ?Instructions ?Recorded ?Confirmed ?Type montelukast 10 mg tablet 10 mg PO HS 12/09/19 11/29/24 History (Singulair) metformin 500 mg tablet 500 mg PO DAILY 06/07/21 11/29/24 History clonidine HCl 0.1 mg tablet 0.1 mg PO HS 09/25/21 11/29/24 History furosemide 40 mg tablet 40 mg PO DAILY 09/25/21 11/29/24 History losartan 50 mg tablet 50 mg PO DAILY 09/25/21 11/29/24 History albuterol sulfate 90 mcg/actuation 2 puff inhalation QID PRN 12/10/21 11/29/24 History aerosol inhaler (Ventolin HFA) Shortness Of Breath cholecalciferol (vitamin D3) 25 25 mcg PO DAILY 12/10/21 11/29/24 History mcg (1,000 unit) tablet (Vitamin D3) ropinirole 0.25 mg tablet 0.25 mg PO HS 12/10/21 11/29/24 History rosuvastatin 20 mg tablet 20 mg PO DAILY 12/10/21 11/29/24 History diltiazem HCl 360 mg 360 mg PO DAILY 07/07/23 11/29/24 History capsule,extended release 24 hr loratadine 10 mg tablet 10 mg PO DAILY 07/07/23 11/29/24 History sitagliptin phosphate 50 mg tablet 50 mg PO DAILY 07/07/23 11/29/24 History (Januvia) acetaminophen 500 mg tablet 1,000 mg (2 x 500 mg) PO Q6H PRN 07/08/23 11/29/24 Rx Pain 1-3 or Fever #30 tabs aspirin 81 mg capsule 81 mg PO DAILY 03/18/24 11/29/24 History linaclotide 290 mcg capsule See Rx Instructions .Route 07/08/24 11/29/24 Rx (Linzess) .COMPLEX #30 caps budesonide-formoterol HFA 160 2 puff inhalation Q12H 07/23/24 11/29/24 History mcg-4.5 mcg/actuation aerosol inhaler (Symbicort) cyanocobalamin (vitamin B-12) 1 ml PO DAILY 07/23/24 11/29/24 History 1,000 mcg/mL oral drops (Vitamin B-12) fenofibrate micronized 134 mg 134 mg PO DAILY 07/23/24 11/29/24 History capsule tiotropium bromide 2.5 2 puff inhalation BID 07/23/24 11/29/24 History mcg/actuation mist for inhalation (Spiriva Respimat) calcium carbonate (Calcium 600) 600 mg PO DAILY 10/29/24 11/29/24 History ferrous sulfate 325 mg (65 mg 325 mg PO DAILY 10/29/24 11/29/24 History iron) tablet (iron) metoclopramide HCl 10 mg tablet See Rx Instructions .Route 11/01/24 11/29/24 Rx .COMPLEX #90 tabs pantoprazole 40 mg tablet,delayed See Rx Instructions .Route 11/01/24 11/29/24 Rx release .COMPLEX #60 tabs amitriptyline 50 mg tablet See Rx Instructions .Route 11/18/24 11/29/24 Rx .COMPLEX #30 tabs Laboratory Tests 12/03/24 06:20 POC Capillary Glucose 125 H mg/dl (65-105) Patient hx anesthesia problems: none Family hx anesthesia problems: none Results Review: All pre-operative results and documents have been reviewed as part of the pre-operative evaluation. 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 H/O: hysterectomy H/O cardiac catheterization Family History Family History Father Diabetes mellitus Hypertension Mother Hypertension Other Arthritis Asthma Cancer Cerebrovascular accident Depression Family history of arthritis Family history of heart disease in male family member before age 55 Family history of lung disease High cholesterol Social History Social History Smoking packs per day: 1.5 Smoking cigarettes per day: 30.0 Years smoked: 48 Smoking pack-years: 72.00 Smoking status: Current some day smoker Tobacco type: cigarettes Second hand tobacco smoke exposure: Yes Smoking end date: 01/28/24 Additional smoking assessment comments: QUIT 2023 Alcohol intake: former Substance use: never Substance use type: does not use Do You Feel Safe in your Home?: Yes Lack of Transportation: YES Lack of Food: Sometimes True Current Housing: I Do Not Have Housing Concerned About Future Housing: No Difficulty Paying Gas/Electric Bills: No Difficulty Paying for Meds: No Currently Unemployed: No Education: Associate Degree Difficulty w/ Childcare or Family Care: No Living arrangements: with family Occupation/Education: unemployed Gender identity (if verbalized by the patient): Female Sexual Orientation (if Verbalized by the Patient): Straight or Heterosexual Spiritual care concerns: No Anes - Eval Final PreProcedure Day of Procedure 12/03/24 07:15 Patient weight: obese Heart: regular rate and rhythm Lungs: decreased breath sounds Airway: Mallampati scale class III Neurological: alert and oriented Last oral intake: >/= 8 hours ASA classification: III Emergent: no Anesthetic plan: proceed Anesthesia type and monitoring: general GIVS and standard monitoring Results Review: All pre-operative results and documents have been reviewed as part of the pre-operative evaluation. Informed Consent: The patient's anesthetic plan and its attendant risks and benefits were discussed with the patient/family/POA. Questions were solicited and answers provided to the satisfaction of the patient/family/POA.
--- NOTE | 2024-12-03 07:24 | PM.HPGS ---
History of Present Illness History of Present Illness Consent: Risks, benefits, and alternatives have been discussed and questions answered. Patient agrees to proceed with procedure. Chief complaint: Spond Lumbosca Region, CLBP Narrative: Bev Grossman is a 59 year old female with chronic, recalcitrant and disabling bilateral lumbosacral back pain secondary to degenerative spondylosis with failure to respond to aggressive conservative measures including PT, oral and topical analgesics, opioid and nonopioid analgesics, rest, time and activity/behavioral modification over the past 1-2 years who presents for thermal RF ablation of the bilateral L3, L4, L5 medial branches/dorsal ramus addressing the bilateral L4-5, L5-S1 facet joints under fluoroscopic guidance and with contrast control. 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 H/O: hysterectomy H/O cardiac catheterization Family History Family History Father Diabetes mellitus Hypertension Mother Hypertension Other Arthritis Asthma Cancer Cerebrovascular accident Depression Family history of arthritis Family history of heart disease in male family member before age 55 Family history of lung disease High cholesterol Social History Social History Smoking packs per day: 1.5 Smoking cigarettes per day: 30.0 Years smoked: 48 Smoking pack-years: 72.00 Smoking status: Current some day smoker Tobacco type: cigarettes Second hand tobacco smoke exposure: Yes Smoking end date: 01/28/24 Additional smoking assessment comments: QUIT 2023 Alcohol intake: former Substance use: never Substance use type: does not use Do You Feel Safe in your Home?: Yes Lack of Transportation: YES Lack of Food: Sometimes True Current Housing: I Do Not Have Housing Concerned About Future Housing: No Difficulty Paying Gas/Electric Bills: No Difficulty Paying for Meds: No Currently Unemployed: No Education: Associate Degree Difficulty w/ Childcare or Family Care: No Living arrangements: with family Occupation/Education: unemployed Gender identity (if verbalized by the patient): Female Sexual Orientation (if Verbalized by the Patient): Straight or Heterosexual Spiritual care concerns: No Meds Home Medications and Allergies Home Medications ?Medication ?Instructions ?Recorded ?Confirmed ?Type montelukast 10 mg tablet 10 mg PO HS 12/09/19 11/29/24 History (Singulair) metformin 500 mg tablet 500 mg PO DAILY 06/07/21 11/29/24 History clonidine HCl 0.1 mg tablet 0.1 mg PO HS 09/25/21 11/29/24 History furosemide 40 mg tablet 40 mg PO DAILY 09/25/21 11/29/24 History losartan 50 mg tablet 50 mg PO DAILY 09/25/21 11/29/24 History albuterol sulfate 90 mcg/actuation 2 puff inhalation QID PRN 12/10/21 11/29/24 History aerosol inhaler (Ventolin HFA) Shortness Of Breath cholecalciferol (vitamin D3) 25 25 mcg PO DAILY 12/10/21 11/29/24 History mcg (1,000 unit) tablet (Vitamin D3) ropinirole 0.25 mg tablet 0.25 mg PO HS 12/10/21 11/29/24 History rosuvastatin 20 mg tablet 20 mg PO DAILY 12/10/21 11/29/24 History diltiazem HCl 360 mg 360 mg PO DAILY 07/07/23 11/29/24 History capsule,extended release 24 hr loratadine 10 mg tablet 10 mg PO DAILY 07/07/23 11/29/24 History sitagliptin phosphate 50 mg tablet 50 mg PO DAILY 07/07/23 11/29/24 History (Januvia) acetaminophen 500 mg tablet 1,000 mg (2 x 500 mg) PO Q6H PRN 07/08/23 11/29/24 Rx Pain 1-3 or Fever #30 tabs aspirin 81 mg capsule 81 mg PO DAILY 03/18/24 11/29/24 History linaclotide 290 mcg capsule See Rx Instructions .Route 07/08/24 11/29/24 Rx (Linzess) .COMPLEX #30 caps budesonide-formoterol HFA 160 2 puff inhalation Q12H 07/23/24 11/29/24 History mcg-4.5 mcg/actuation aerosol inhaler (Symbicort) cyanocobalamin (vitamin B-12) 1 ml PO DAILY 07/23/24 11/29/24 History 1,000 mcg/mL oral drops (Vitamin B-12) fenofibrate micronized 134 mg 134 mg PO DAILY 07/23/24 11/29/24 History capsule tiotropium bromide 2.5 2 puff inhalation BID 07/23/24 11/29/24 History mcg/actuation mist for inhalation (Spiriva Respimat) calcium carbonate (Calcium 600) 600 mg PO DAILY 10/29/24 11/29/24 History ferrous sulfate 325 mg (65 mg 325 mg PO DAILY 10/29/24 11/29/24 History iron) tablet (iron) metoclopramide HCl 10 mg tablet See Rx Instructions .Route 11/01/24 11/29/24 Rx .COMPLEX #90 tabs pantoprazole 40 mg tablet,delayed See Rx Instructions .Route 11/01/24 11/29/24 Rx release .COMPLEX #60 tabs amitriptyline 50 mg tablet See Rx Instructions .Route 11/18/24 11/29/24 Rx .COMPLEX #30 tabs Allergies Allergy/AdvReac Type Severity Reaction Status Date / Time No Known Allergies Allergy Verified 12/03/24 06:56 Vital Signs Vital Signs - 24 hr 12/03/24 06:57 Temperature 97.7 F Pulse Rate 96 Blood Pressure 112/77 Pulse Oximetry 94 Oxygen Delivery Room Air Exam Narrative: The patient's physical exam is essentially unchanged from prior examination on 09/18/24. Specifically, patient demonstrates normal lung capacity, tidal volume and respiratory rate without wheezes, crackles, rales or rubs. Heart rate and rhythm are regular without murmurs, gallops or rubs. No JVD. Pulses 2+ globally without increasing peripheral edema. AAOx3 with no evidence of confusion, intoxication or altered mental state, NC/AT without acute distress or altered consciousness. Speech, cognition, mood, insight and judgment at baseline and within normal limits. Assessment and Plan Assessment and plan (1) Lumbosacral spondylosis: Code(s): M47.817 - Spondylosis without myelopathy or radiculopathy, lumbosacral region Status: Acute Assessment and Plan: proceed as planned with bilateral L3, L4, L5 medial branch/dorsal ramus thermal RFA with fluoroscopy. (2) Dorsalgia of lumbosacral region: Code(s): M54.50 - Low back pain, unspecified Status: Acute (3) Chronic pain: Code(s): G89.29 - Other chronic pain Status: Acute
--- NOTE | 2024-12-03 07:26 | WPDHPUPDATE1 ---
History and Physical Update Update Date/Time: 12/03/24 07:26 History and Physical has been reviewed, including an updated exam of the patient. There are NO changes in the patient's condition. Risks, benefits, and alternatives have been discussed and questions answered. Patient agrees to proceed with procedure.
[2024-12-03] MEDS: LIDOCAINE 2% PF LOCAL INJ 5 ML VIAL 10 ML INFILTRATE (07:43)
--- NOTE | 2024-12-03 08:05 | W.PM.PROC2 ---
Procedure Note - Detailed Date of Procedure 12/03/24 Pre-op Diagnosis Spond Lumbosca Region, CLBP Post-op Diagnosis Same Procedure Performed Thermal Radiofrequency Ablation of the bilateral Lumbar Medial Branches/Dorsal Ramus at the L3, L4, L5 Levels Treating the bilateral L4-5, L5-S1 Facet Joints Under Fluoroscopic Guidance (4 Levels Treated). Surgeon Preet Mariscal MD Interactive Media Marketing Strategist None. Anesthesia Local (w/ MAC) Description of Procedure INFORMED CONSENT: Risks, benefits and alternatives to the procedure were discussed in detail with the patient who expressed explicit understanding and consent to proceed. Patient was informed verbally and in written form regarding the risks associated with the procedure including the low risk of serious infection, bleeding/bruising, allergic reaction, nerve or organ injury, paralysis, procedural site pain or discomfort, worsening pain and/or mobility, failure to treat and/or disfigurement. The patient expressed explicit understanding and consent to proceed. All materials required for the procedure were available prior to procedure start. Site and side were marked prior to procedure and confirmed in the presence of the patient. PROCEDURE IN DETAIL: The patient was brought to the procedural suite and placed in the prone position. Patient was made comfortable with use of pillows under the head/chest, hips and ankles. ASA standard monitors were applied and used throughout the procedure. Skin overlying the injection site on the affected side(s) was prepared broadly with ChloraPrep applicator and draped in a sterile manner. Aseptic technique was used throughout. The endplates of the vertebral bodies at the site(s) of interest were aligned in the AP view. Ipsilateral oblique angulation was utilized to optimize visualization of the intersection between the superior articulating process and transverse process at each target site. Local anesthesia was established by infiltration with approximately 5 mL of 1% lidocaine via a 1-1/2 inch 27-gauge needle divided over each site treated. A 16-gauge 100mm NeoSystemsian RF needle with curved 10mm active tip was advanced in the AP view until the needle tip contacted the periosteum at the target site, the right L3 medial branch. Lateral view was utilized to adjust and confirm the appropriate placement of the needle tip just anterior to the facet line, superior to the pedicle and posterior to the foramen. Grounding electrode was in place and functioning. The appropriately-sized RF cannula was inserted into the RF needle and motor stimulation was performed with no subjective or objective evidence of recruited muscle activity with stimulation up to 2.0 volts at a frequency of 2Hz. 1.5 mL of 2.0% PF lidocaine was injected after negative aspiration. After a 90s pause, lesioning was performed to 90 degrees centigrade for 90s ensuring lack of symptoms in the extremity throughout. Needle was rotated 180 degrees and lesioning repeated in a similar manner. Patient tolerated this well. No paresthesias were elicited. Needle was removed completely intact without difficulty. The same procedure was repeated for all intended levels/ structures on the ipsilateral side, right L4, L5 medial branch/dorsal ramus with identical methodology, modified to compensate for new location, with similar results and no evidence of complication. The same exact procedure was repeated for all remaining levels on the contralateral side, left L3, L4, L5 medial branches/dorsal ramus, modified as necessary to accommodate for the new target location with identical findings/results and no evidence of complication. Images were saved and documented in the patient chart. Patient's skin was cleansed and sterile bandage applied. The patient tolerated the procedure well. The patient was transported to the recovery area in stable condition where they were observed for an appropriate amount of time prior to discharge, without evidence of complication. The patient was instructed to avoid excessive activity for the next 48 hours, including climbing and frequent use of stairs. Showers only for 48 hours. They were instructed not to drive or operate heavy machinery for 24 hours. They are to monitor for severe headaches, fevers, chills, night sweats, erythema/swelling at the site or any other signs of infection, bleeding/bruising, bowel or bladder changes as well as new pain, weakness or numbness in the upper or lower extremity. Should they notice these changes, they are instructed to call our office immediately or report directly to the nearest Emergency Department if no answer or if after posted office hours. COMPLICATIONS: None COMMENTS: None Complications No immediate complications Condition Stable Disposition PACU [facility] Billing Surgery - Charge Forward: Surgery Billing
[2024-12-03 08:08] VITALS: BP 129/79; PULSE 95; RESP 14; O2SAT 97
[2024-12-03 08:30] VITALS: BP 129/77; PULSE 87; RESP 14; O2SAT 94
[2024-12-03 09:00] VITALS: BP 115/76; PULSE 89; RESP 14
== END 2024-12-03 09:12 | disposition home or self-care (01) ==
PROVIDERS: PCP Emergency Medicine; Visit Provider Anesthesiology Pain Medicine
PROC: (CPT 64635; principal; 2024-12-03 07:30)
DX: M47.817 Spondylosis without myelopathy or radiculopathy, lumbosacral region (principal); G89.29 Other chronic pain; E78.5 Hyperlipidemia, unspecified; I10 Essential (primary) hypertension; E11.9 Type 2 diabetes mellitus without complications; J44.9 Chronic obstructive pulmonary disease, unspecified; F41.9 Anxiety disorder, unspecified; G47.33 Obstructive sleep apnea (adult) (pediatric); F32.A Depression, unspecified; M19.90 Unspecified osteoarthritis, unspecified site; E66.9 Obesity, unspecified; Z68.31 Body mass index [BMI] 31.0-31.9, adult; Z79.84 Long term (current) use of oral hypoglycemic drugs; Z79.51 Long term (current) use of inhaled steroids; Z79.82 Long term (current) use of aspirin; Z98.890 Other specified postprocedural states; Z98.61 Coronary angioplasty status; Z87.891 Personal history of nicotine dependence; Z86.79 Personal history of other diseases of the circulatory system; Z87.19 Personal history of other diseases of the digestive system; Z80.9 Family history of malignant neoplasm, unspecified; Z82.49 Family history of ischemic heart disease and other diseases of the circulatory system
CPT/HCPCS: 64635; 64636 ×6; 82948; 99199; J2003; J2250; J2704; J3010; J7120

== ENCOUNTER 2024-12-13 14:45 | Outpatient (CLI) | payer OTHER, SELFPAY ==
--- NOTE | ~2024-12-13 | MM_ITS ---
EXAMINATION: MM screening ellis BI w shira HISTORY: Screening TECHNIQUE: Craniocaudal and mediolateral oblique 3-D tomosynthesis images were obtained and synthetic 2-D images were generated. CAD analysis was submitted and interpreted. COMPARISON: No prior mammogram is available for comparison at this institution. BREAST PARENCHYMAL COMPOSITION: There are scattered areas of fibroglandular density. FINDINGS: There is no evidence of suspicious mass, calcification, or architectural distortion to suggest malignancy. IMPRESSION: 1. No mammographic evidence of malignancy. Recommend routine screening mammography in one year. BI-RADS Category 2: Benign finding(s) Reviewed, dictated and finalized at location Q. IMPRESSION: 1. No mammographic evidence of malignancy. Recommend routine screening mammogra phy in one year. BI-RADS Category 2: Benign finding(s)
--- OUTSIDE RECORDS SUMMARY | 2024-12-13 14:49 | XMS_ITS | Encounter Summary ---
Author Organization [facility] Address [address] [place] [address] Phone Care Team Providers Care Managing Cognitive Engineer Name Role Phone Jorge Luis Hill MD Primary Care Provider [phone] Encounter Details Date Type Department Care Team (Late st Contact Info) Description 05/07/2022 Documentation [facility] - [facility] Medicine ENT [address] [facility] [address] [place] [address] [place] [address] Amadeo Bazzi MD [address] [place] [address] Social History Tobacco Use Types Packs/Day Years [...] week 12/22/2021 How often do you attend [facility] or scientologist services? Never 12/22/2021 Do you belong to any clubs o r organizations such as latter day groups, unions, fraternal or athletic groups, or [...] place to sleep or slept in a [place] [facility] [place] facility (including now)? 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
--- OUTSIDE RECORDS SUMMARY | 2024-12-13 14:49 | XMS_ITS | Encounter Summary ---
Author Organization [facility] Address [address] [place] [address] Phone Care Team Providers Care Ux Research Associate Name Role Phone Jorge Luis Hill MD Primary Care Provider Encounter Details Date Type Department Care Team (Late st Contact Info) Description 10/22/2024 Results Follow-Up [facility] [address] [facility] Advanced Medicine 13th [place] [address] [place] [id number] Paola Willard, BEVERLY [address] [facility] [address] [place] [address] [id number] Albumin Creatinine Ratio, Urine, Urinalysis reflex to [...] on file Legal Sex Female 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
--- OUTSIDE RECORDS SUMMARY | 2024-12-13 14:49 | XMS_ITS | Clinical Summary ---
Author Organization [facility] Address [address] [place] [address] Phone Care Team Providers Care Women'S Activities Adviser Name Role Phone Jorge Luis Hill MD Primary Care Provider [phone] Allergies No known active allergies Medications aspirin [...] nightly 01/03/20 20 Active cholecalciferol (VITAMIN D-3) 73651 unit tablet Take 1 tablet (50,000 Units [...] use distraction techniques - Information given regarding [place] Tobacco Quit line: [phone] for free services - 5 minutes spent [...] echocardiogram, Assessment & Plan (02/13/2024 11:58 AM PARTY SUPPLY SPECIALIST): Continue supplemental oxygen for saturations 90% I have advised her to get a home pulse oximeter and bring it to her next visit for comparison She has a visit with our property assessment monitor upcoming and will likely have an echocardiogram. [...] (01/03/2022): Added automatically from request for surgery [id number] Smoking 12/14/2021 Assessment & Plan (12/19/2021 11:55 [...] months Assessment & Plan (01/14/2022 11:03 AM PARTY SUPPLY SPECIALIST): - Pt has completed 4 weeks of [...] tract. If no surgical plan, Resume diet. [place] re supplements. Pain control with prn tylenol [...] care Assessment & Plan (02/13/2024 11:59 AM PARTY SUPPLY SPECIALIST): Continue Symbicort twice daily Continue Spiriva twice [...] 12/13/2021 Assessment & Plan (02/13/2024 11:57 AM PARTY SUPPLY SPECIALIST): Continue PAP with all sleep She is aware of the risks of uncorrected sleep apnea Assessment & Plan (12/21/2021 12:03 PM CDT): Exacerbated by BMI 42. Alert, oriented. Outpatient PSG Assessment & Plan (12/13/2021 11:24 AM CDT): Exacerbated by BMI 42. Alert, oriented. Morbid obesity with BMI of 40.0-44.9, adult 11/27 Assessment & Plan (12/14/2021 3:10 PM CDT): BMI 42.07, 104.3kg this admit. [place] to see skilled nursing weight loss management goals with PCP, hx DM, HTN, ELIOT & may benefit from bariatric evaluation. Assessment & Plan (12/13/2021 10:25 AM CDT): BMI 42.07, 104.3kg this admit. [place] to see skilled nursing weight loss management goals with PCP, hx DM, HTN, ELIOT & may benefit from bariatric evaluation. Pancreatic cyst 01/10/2020 Overview (01/10/2020): Added automatically from request for surgery [id number] Resolved Problems Problem Noted Date Diagnosed Date Resolved Date Nicotine dependence, cigarettes, in remission 02/13/20 24 06/14/2024 Assessment & Plan (02/13/2024 11:57 AM PARTY SUPPLY SPECIALIST): Quit in November of 2023 She is due for annual CT chest in February of 2023 Encounters Date Type Department Care Team Description 11/29/2024 1:30 PM CDT Office Visit [facility] [address] 5th [place] [address] [place] [address] Maged Mckeon MD Chronic kidney disease (CKD), stage 2 (Primary Dx); Type 2 diabetes mellitus with hyperglycemia, without long-term current use of insulin (HCC) 11/21/2024 Orders Only [facility] [address] [facility] 5th [place] [address] [place] [address] Maged Mckeon MD PRESTON (acute kidney injury) (Primary Dx); Hypertension associated with diabetes (HCC); Type 2 diabetes mellitus with hyperglycemia, without long-term current use of insulin (HCC) 11/07/2024 Telephone [facility] Cardiology [address] [place] [address] Riky Go MD 10/30/2024 1:20 PM CDT Office Visit [facility] [address] [place] [address] Aniyah Gooden NP Osteonecrosis of mandible (HCC) (Primary Dx) 10/29/2024 10:45 AM CDT Office Visit [facility] Cardiology [address] [place] [address] Riky Go MD 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, unspecified whether angina present (Primary Dx) 10/22/2024 Results Follow-Up [facility] [address] 13th [place] [address] [place] [address] Paola Willard NP Albumin Creatinine Ratio, Urine, Urinalysis reflex to microscopic, NOTE, Additional followed-up results: 5 10/22/2024 Orders Only [facility] [address] 13th [place] [address] [place] [address] Paola Willard NP Age-related osteoporosis without current pathological fracture (Primary Dx) 10/16/2024 12:00 PM CDT Office Visit [facility] [address] 13th [place] [address] [place] [address] Paola Willard NP Age-related osteoporosis without current pathological fracture (Primary Dx); Acute kidney injury 10/16/2024 11:30 AM CDT Clinical Support [facility] [address]th [place] [address] [place] [address] Post-menopausal (Primary Dx); Age-related osteoporosis without current pathological fracture; Osteopenia of multiple sites 10/16/2024 Telephone [facility] [address] [facility] [facility] Medicine 13th [place] [address] [place] [address] Paola Willard NP 10/10/2024 Telephone [facility] [place] [address] [place] [address] Ashley Kwon LPN Rf Spiriva, Albuterol inhaler 10/09/2024 Telephone [facility] [address] 13th [place] [address] [place] [address] Paola Willard NP 09/20/2024 Telephone [facility] [address] [place] [address] Demetris Marc from Last 3 Months Immunizations Immunization Administration Dates Next Due Influenza, Quadrivalent, Spl it, Preservative Free, Intramuscular 12/28/2022 Pfizer Sars-Cov-2 Bivalent Vaccination (12+ YRS) 03/02/2022 Surgical History Surgery Date Site/Laterality Comments SECTION 1984, 1988 TOTAL ABDOMINAL HYSTERECTOMY W/ BILATERAL SALPINGOOPHORECTOMY 02/27/1995 - 02/27/1996 PAEDIATRIC SURGEON SHUNT INSERTION 02/27/2010 - 02/26/2011 COLONOSCOPY BRAIN [...] often do you attend chur ch or worship services? Never 12/22/2021 Do you belong to any clubs o r organizations such as scientologist groups, unions, fraternal or athletic groups, or [...] on file Legal Sex Female 1:34 AM PARTY SUPPLY SPECIALIST Gender Identity Not on file Sexual Orientation Not on file Obstetrics History Last Filed Vital Signs Vital Sign Reading Time Taken Comments Blood Pressure 106/74 11/29/2024 1:31 PM CDT Pulse 88 11/29/2024 1:31 PM CDT Temperature 37.4 C (99.4 F) 11/29/2024 1:31 PM CDT Respiratory Rate 18 02/12/2024 2:42 PM PARTY SUPPLY SPECIALIST Oxygen Saturation 95% 11/29/2024 1:31 PM CDT [...] Completed 12/15/2021 Medical Devices Implanted Type Area Dedenter Device Identifier Shelf Expiration Date Model / Serial / Lot Shunt Implanted:Qty: 2 Shunt Brain Synovis [employer] [place] Microvascular 3.5mm Ring Pin Protective Cover Jaw Assembly Latex Free [id number] - [id number] Implanted:Qty: 1 on 2022 by Ricci Shelton MD at [facility] Mandible [employer] [id number] 04/12/2026 [id number] / / [id number] [place] Craniomaxillofaci al 2mm Primary Reconstruction Customize Mandible Bebeto Plate Bone [id number] - [id number] Implanted:Qty: 1 on 2022 by Ricci Shelton MD at [facility] Mandible Álvaro Craniomaxillofacial [id number] / / Álvaro Craniomaxillofaci al Leibinger [place] 2 2.3mm 6mm Lock Cross Pin Maxillofacial [id number] - [id number] Implanted:Qty: 1 on 2022 by Ricci Shelton MD at [facility] Mandible Álvaro Craniomaxillofacial [id number] / / Álvaro Craniomaxillofaci al Leibinger [place] 2 2.3mm 8mm Lock Cross Pin Maxillofacial [id number] - [id number] Implanted:Qty: 2 on 2022 by Ricci Shelton MD at [facility] Mandible Álvaro Craniomaxillofacial [id number] / / [place] Craniomaxillofaci al Leibinger [place] 2 2.3mm 12mm Lock Cross Pin Maxillofacial [id number] - [id number] Implanted:Qty: 3 on 2022 by Ricci Shelton MD at [facility] Mandible Álvaro Craniomaxillofacial [id number] / / Álvaro Craniomaxillofaci al Leibinger [place] 2 2mm 6mm Self Tap Cross Pin Maxillofacial 50 - [id number] Implanted:Qty: 4 on 2022 by Ricci Shelton MD at [facility] Mandible Álvaro Craniomaxillofacial 50 / / [place] Craniomaxillofaci al Leibinger [place] 2 2mm 6mm Lock Cross Pin Maxillofacial Screw 50 - [id number] Implanted:Qty: 1 on 2022 by Ricci Shelton MD at [facility] Mandible Álvaro Craniomaxillofacial 50 / / Explanted Type Area Dedenter Device Identifier Shelf Expiration Date Model / Serial / Lot Álvaro Craniomaxillofaci al Leibinger [place] 2 2mm 8mm Self Tap Cross Pin Maxillofacial 50 - [id number] Explanted:Qty: 4 on 2022 at [facility] Mandible Álvaro Craniomaxillofacial 50 / / [place] Craniomaxillofaci al Leibinger [place] 2 2.3mm 8mm Self Tap Cross Pin Maxillofacial [id number] - [id number] Explanted:Qty: 1 on 2022 at [facility] Mandible [place] Craniomaxillofacial [id number] / / [employer] Probe Doppler 17.4cm Standard Cuff Implantable 20mhz Latex Free Sterile Microvascular Anastomoses Carmen [id number] - [id number] Implanted:Qty: 1 on 2022 by Ricci Shelton MD at [facility] Explanted:Qty: 1 on 02/14/2022 by Marie Parr PA Right: Neck [employer] [id number] 10/27/2024 [id number] / / [id number] Procedures Procedure Name Priority Date/Time Associated Diagnosis [...] Read Routine (OP Routine) 03/25/2024 12:46 PM PARTY SUPPLY SPECIALIST Nicotine dependence, cigarettes, uncomplicated POCT HEMOGLOBIN A1C Routine 08/07/2023 3:17 PM CDT Type 2 diabetes mellitus with hyperglycemia, without long-term current use of insulin (HCC) LIPID PANEL STAT 02/15/2022 2:00 PM PARTY SUPPLY SPECIALIST HEPATITIS PANEL, ACUTE Routine 12/15/2021 11:19 PM [...] 10/18/2024 7:12 AM CDT SPLIT 10/16/2024 FROM [id number] us Paola Willard AWNING FINISHER LAB BLOOD ORDERABLES Final Re sult [facility] [address] [place] [address] * (ABNORMAL) Urinalysis reflex to microscopic (10/17/2024 [...] 10/18/2024 7:12 AM CDT SPLIT 10/16/2024 FROM [id number] Paola Willard AWNING FINISHER LAB URINE ORDERABLES Final Re sult Performing Organization Address [facility] [address]/[facility] Co de Phone Number [facility] [address] [place] [address] * Albumin Creatinine Ratio, Urine (10/17/2024 8:23 [...] 10/18/2024 7:12 AM CDT SPLIT 10/16/2024 FROM [id number] us Paola Willard NP LAB URINE ORDERABLES Final Re sult Performing Organization Address [facility] [address]/ZIP Co de Phone Number [facility] [address] [place] [address] * C-Telopeptide, serum (10/16/2024 3:22 PM CDT) C telopeptide 228 pg/mL [facility], Comment: Reference Range: NOT ESTABLISHED Adult Female [...] loss. For additional information, please refer to http://education.Heyday/faq/DCL232 (This link is being provided for informational/educational purposes only.) 10/16/2024 3:22 PM CDT 10/16/2024 3:23 PM CDT Narrative [facility] - 10/19/2024 3:35 PM CDT PATIENT UNABLE TO VOID; ADVISED TO RETURN FOR COLLECTION. Paola Willard AWNING FINISHER LAB BLOOD ORDERABLES Final Re sult [id number], [address] [place] [address] * Alkaline phosphatase, bone specific (10/16/2024 3:22 PM CDT) Alk phos, bone 10.5 5.6 - 29.0 mcg/L [facility], 10/16/2024 3:22 PM CDT 10/16/2024 3:23 PM CDT Narrative [facility] - 10/19/2024 3:35 PM CDT PATIENT UNABLE TO VOID; ADVISED TO RETURN FOR COLLECTION. us Paola Willard AWNING FINISHER LAB BLOOD ORDERABLES Final Re sult [email or web address] [place], [address] [place] [address] * Vitamin D 25 hydroxy (10/16/2024 3:22 PM CDT) Vitamin D 25-OH 44 30 - 100 ng/mL [facility] Comment: Vitamin D Status 25-OH Vitamin D: Deficiency: <20 ng/mL Insufficiency: 20 - 29 ng/mL Optimal: > or = 30 ng/mL For 25-OH Vitamin D testing on patients on D2-supplementation and patients for whom quantitation of D2 and D3 fractions is required, the [facility]ure[facility](TM) 25-OH VIT D, (D2,D3), LC/MS/MS is recommended: order code 10452 (patients >2yrs). See Note 1 Note 1 For additional information, please refer to http://education.Uptake/faq/UKS915 (This link is being provided for informational/ educational purposes only.) 10/16/2024 3:22 PM CDT 10/16/2024 3:23 PM CDT Narrative [facility] - 10/19/2024 3:35 PM CDT PATIENT UNABLE TO VOID; ADVISED TO RETURN FOR COLLECTION. Paola Willard AWNING FINISHER LAB BLOOD ORDERABLES Final Re sult Performing Organization Address City/[facility] [address]/ZIP Co de Phone Number [email or web address] [address] [place] [address] * (ABNORMAL) PTH (10/16/2024 3:22 PM CDT) Parathyroid hormone, intact 119(H) 16 - 77 pg/mL [facility] Comment: Interpretive Guide Intact PTH Calcium [...] BLOOD ORDERABLES Final Re sult [facility] [address] [facility] [place] [address] * (ABNORMAL) Renal function panel (10/16/2024 3:22 PM CDT) Glucose 94 65 - 99 mg/dL [facility] Comment: Fasting reference interval BUN 23 7 - 25 mg/dL [facility] Creatinine 1.08(H) 0.50 - 1.03 mg/dL [facility] eGFR 59(L) > OR = 60 mL/min/1.7 3m2 [facility] BUN/creat ratio 21 6 - 22 (calc) [facility] Sodium 140 135 - 146 mmol/L [facility] Potassium, pl 4.8 3.5 - 5.3 mmol/L [facility] Chloride 103 98 - 110 mmol/L [facility] CO2 29 20 - 32 mmol/L [facility] Calcium 9.3 8.6 - 10.4 mg/dL [facility] Phosphorus, sr 2.8 2.5 - 4.5 mg/dL [facility] Albumin 4.5 3.6 - 5.1 g/dL [facility] 10/16/2024 3:22 PM CDT 10/16/2024 3:23 PM CDT Narrative [facility] - 10/19/2024 3:35 PM CDT PATIENT UNABLE TO VOID; ADVISED TO RETURN FOR COLLECTION. Paola Willard NP LAB BLOOD ORDERABLES Final Re sult [facility] [address] [place] [address] * Dexa TBS Axial Skeleton Bone Density 1 or more sites (10/16/2024 12:16 PM CDT) Anatomical Region Laterality Modality Wrist, Body N/A Radiographic Yani ging Narrative 10/16/2024 3:40 PM CDT Patient Name: Bev Grossman Date of : 1965 Date of scan: 10/16/2024 Bone mineral density was performed on a Holo[employer] Discovery Densitometer. Based on machine cross-calibration and [...] by the International Society of Clinical Densitometry. [id number] us Paola Willard NP IMG DXA PROCEDURES Edited Res ult - Final * CT Lung Cancer Screening (03/25/2024 12:46 PM PARTY SUPPLY SPECIALIST) Anatomical Region Laterality Modality Chest N/A Computed Tomogra phy 03/26/2024 9:54 AM PARTY SUPPLY SPECIALIST Narrative 03/26/2024 10:03 AM PARTY SUPPLY SPECIALIST EXAM DESCRIPTION: CT LUNG CANCER SCREENING REASON [...] Almita Miller D.O. PS: PS Report ID: [id number] Reading Location: [id number] Procedure Note Almita Miller, DO - 03/26/2024 [...] Almita Miller D.O. PS: PS Report ID: [id number] Reading Location: [id number] Ethan Leung MD IM CT PROCEDURES Final Result * (ABNORMAL) POCT hemoglobin A1c (08/07/2023 3:17 PM CDT) Hemoglobin A1C, POC 5.9 % Capillary blood 08/07/2023 3 :17 PM CDT Briana Santana MD POINT OF CARE TEST ORDERABLES Fi nal Result * (ABNORMAL) Lipid panel (02/15/2022 2:00 PM PARTY SUPPLY SPECIALIST) Cholesterol 161 30 - 199 mg/dL [facility] Comment: Interpretive Data Ages < or = [...] revised on 2017. Triglycerides 253(H) <=149 mg/dL [facility] Comment: Interpretive Data Ages < or = [...] on 2017. HDL 42 >=40 mg/dL [facility] Comment: Interpretive Data Ages < or = [...] on 2017. LDL, calculated 68 <=129 mg/dL [facility] Comment: Interpretive Data Ages < or [...] revised on 2017. Non-HDL Cholesterol 119 mg/dL [facility] Comment: Interpretive Data Ages < or [...] last revised on 2017. Chol/HDL ratio 4 [facility] Blood 02/15/2022 2:00 PM PARTY SUPPLY SPECIALIST 02/15/2022 5:52 PM PARTY SUPPLY SPECIALIST Neri Loco MD LAB BLOOD ORDERABLES Fi nal Result [facility] [place] [address] * Hepatitis panel, acute (12/15/2021 11:19 PM CDT) Hep A IgM Nonreactive Nonreactive Comment: Interpretive Data: If Hep A IgM Ab is reported as Equivocal, a new sample should be drawn in two weeks for testing. Current interpretive data was last revised on 19. Hep B core IgM Nonreactive Nonreactive [facility] Comment: Interpretive Data If HepB Core IgM Ab is reported as Equivocal, a new sample should be drawn in two weeks for testing. Current interpretive data was last revised on 19. Hep C Ab Nonreactive Nonreactive [facility] Comment:Antibodies to HCV no t detected. Does NOT exclude the possibility of recent exposure to HCV. HepBsAg Nonreactive Nonreactive [facility] Blood 12/15/2021 11:1 9 PM CDT 12/16/2021 12:30 AM CDT us Orly Fine MD LAB MICROBIOLOGY - GENERAL O RDERABLES Edited Result - Final [facility] [place] [address] from Last 3 Months or Most Recently Relevant to Health Maintenance Additional Health Concerns Infection Onset Date Last Indicated MDR gram neg/ESBL 2022 2022 Insurance [facility] Advance Directives For more information, please contact: [phone] * Full Code (Latest Code Status on File) Date Activated Date Inactivated Comments 04/26/2022 9:48 PM 05/03/2022 6:39 PM * Full Code Date Activated Date Inactivated Comments 2022 9:27 PM 02/14/2022 9:56 PM * Full Code Date Activated Date Inactivated Comments 12/13/2021 5:40 PM 12/21/2021 6:14 PM * Full Code Date Activated Date Inactivated Comments 01/22/2020 1:18 PM 01/22/2020 10:15 PM Care Teams Women'S Activities Adviser Relationship Specialty Start Date End Date Jorge Luis Hill MD PCP - General 04/30/18
--- OUTSIDE RECORDS SUMMARY | 2024-12-13 14:49 | XMS_ITS | Clinical Summary ---
Author Organization [facility] Address [facility] [place] [address] Care Team Providers Care Lance Crewmember/Mlrs Sergeant Name Role Phone Jorge Luis Hill MD Primary Care Provider [phone] Allergies No known active allergies Medications rosuvastatin [...] capsule 2 Active vitamin D2, ergocalciferol , 27960 UNITS capsule 2 Active escitalopram 20 MG [...] Comments Blood Pressure 106/76 05/05/2021 12:15 PM BUSINESS OBJECTS REPORT DEVELOPER Pulse 83 05/05/2021 12:15 PM BUSINESS OBJECTS REPORT DEVELOPER Temperature 36.1 C (96.9 F) 05/05/2021 11:58 AM BUSINESS OBJECTS REPORT DEVELOPER Respiratory Rate 14 05/05/2021 12:15 PM BUSINESS OBJECTS REPORT DEVELOPER Oxygen Saturation 94% 05/05/2021 12:15 PM BUSINESS OBJECTS REPORT DEVELOPER Inhaled Oxygen Concentration - - Weight 108.4 kg (239 lb) 05/05/2021 10:03 AM BUSINESS OBJECTS REPORT DEVELOPER Height 157.5 cm (5' 2) 05/05/2021 10:03 AM BUSINESS OBJECTS REPORT DEVELOPER Body Mass Index 43.71 05/05/2021 10:03 AM BUSINESS OBJECTS REPORT DEVELOPER Plan of Treatment Health Maintenance Due Date [...] Screening Colonoscopy (10 Years) 05/06/2031 05/05/2021, 05/05/2021 Hepatitis A Vaccines Aged Out No long er eligible based on patient's age to complete this topic Meningococcal B Vaccine Aged Out No l [...] Diagnosis Comments COLONOSCOPY Routine 05/05/2021 11:05 AM BUSINESS OBJECTS REPORT DEVELOPER from Last 3 Months or Most Recently Relevant to Health Maintenance Results * Colonoscopy (05/05/2021 11:05 AM BUSINESS OBJECTS REPORT DEVELOPER) Narrative Estuardo Wells MD - 05/05/2021 11:05 AM BUSINESS OBJECTS REPORT DEVELOPER Estuardo Wells MD 05/05/2021 12:05 PM ESTUARDO [...] the left lateral decubitus position, the Olympus [id number] colonoscope was introduced into the rectum and [...] of liver 04-14-2021 but was inpatient at [facility] - Will check to see if she had CT scan while inpatient Thank you for allowing me to care for your patient. She will follow-up with Dr. Hill as needed. Estuardo Wells M.D. Cc: Dr. Nithin Hill Estuardo Wells MD GI PROCEDURE ORDERABLES Fin al Result from Last 3 Months or Most Recently Relevant to Health Maintenance Insurance Care Teams Lance Crewmember/Mlrs Sergeant Relationship Specialty Start Date End Date Jorge Luis Hill MD [address] [place] [address] PCP - General FAMILY PRACTICE 11/25/19
--- OUTSIDE RECORDS SUMMARY | 2024-12-13 14:49 | XMS_ITS | Encounter Summary ---
Author Organization [facility] Address [address] [place] [address] Phone Care Team Providers Care Customer Service Supervisor Name Role Phone Jorge Luis Hill MD Primary Care Provider [phone] Encounter Details Date Type Department Care Team (Late st Contact Info) Description 05/03/2022 Telephone [facility] - [address] [place] [address] Janette Holcomb RN Social History Tobacco Use [...] often do you attend chur ch or advent services? Never 12/22/2021 Do you belong to any clubs o r organizations such as nondenominational groups, unions, fraternal or athletic groups, or [...] place to sleep or slept in a chcf (including now)? No 12/22/2021 Comments No Sex and Gender Information Value Date Recorded Sex Assigned at Not on file Legal Sex Female 1:34 AM CASING RUNNING MACHINE TENDER Gender Identity Not on file Sexual Orientation Not on file documented as of this encounter Plan of Treatment Not on file documented as of this encounter Visit Diagnoses Not on filedocumented in this encounter Additional Health Concerns Infection Onset Date Last Indicated Resolved Time MDR gram neg/ESBL 2022 2022 documented as of this encounter Care Teams Customer Service Supervisor Relationship Specialty Start Date End Date Jorge Luis Hill MD PCP - General 04/30/18 documented as of this encounter
--- OUTSIDE RECORDS SUMMARY | 2024-12-13 14:50 | XMS_ITS | Clinical Summary ---
Author Organization [facility] Address [address], [place] [address] Phone Care Team Providers Care Business Functional Analyst Name Role Phone Jorge Luis Hill MD Primary Care Provider [phone] Allergies No known active allergies Medications alendronate [...] night. Active Cholecalciferol (Vitamin D3) 1.25 MG (62338 UT) capsule Take by mouth per week [...] 2024 3, 01/10/2022, 03/05/2021 Insurance Care Teams Business Functional Analyst Relationship Specialty Start Date End Date Jorge Luis Hill MD PCP - General Family Medicine 08/28/18
--- OUTSIDE RECORDS SUMMARY | 2024-12-13 14:50 | XMS_ITS | Clinical Summary ---
Author Organization [facility] Address [address] [place] [address] Care Team Providers Care Roastmaster Name Role Phone Jorge Luis Hill MD Primary Care Provider [phone] Medications PROAIR HFA 90 mcg/actuation inhaler INHALE [...] mg tablet Active naloxone (Narcan) 4 mg/spray [place], Non-Aerosol Narcan 4 mg/actuation nasal spray 03/18/19 [...] Insurance [employer] Care Teams Roastmaster Relationship Specialty Start Date End Date Jorge Luis Hlil MD PCP - General Emergency Medicine 05/30/18
--- OUTSIDE RECORDS SUMMARY | 2024-12-13 14:50 | XMS_ITS | Patient Health Record ---
Author Organization [facility] Address [address] [facility] [address] [place] [address] Care Team Providers Care Kraft Digester Operator Name Role Phone Darrius Chacon Unavailable [phone] Reason For Referral No Information Plan Of Treatment No Information
--- OUTSIDE RECORDS SUMMARY | 2024-12-13 14:50 | XMS_ITS | Clinical Summary ---
Author Organization [facility] Address [address] [facility] [place] [address] Care Team Providers Care Floriculturist Name Role Phone Jorge Luis Hill MD Primary Care Provider [phone] Source Comments [facility],non-owned Affiliates and Associated Physician Practices is amultiple site organization consisting of ambulatory clinics and hospital sitesin [place], [place], [place] and [place]. This disclosure is being madepursuant to the Care Everywhere program and may not contain all information available regarding this patient. Last updated 17.[facility] Allergies No known active allergies Medications * [...] naloxone HCl (Narcan) 4 MG/0.1ML nasal spray [place] 40 (forty) sprays into the nose as [...] on file Legal Sex Female 7:26 PM CONSUMER EDUCATION SPECIALIST Gender Identity Not on file Sexual Orientation Not on file Last Filed Vital Signs Vital Sign Reading Time Taken Comments Blood Pressure 155/92 03/24/2023 2:17 PM CONSUMER EDUCATION SPECIALIST Pulse 101 03/24/2023 2:17 PM CONSUMER EDUCATION SPECIALIST Temperature 36.7 C (98 F) 03/24/2023 2:17 PM CONSUMER EDUCATION SPECIALIST Respiratory Rate 18 03/24/2023 2:17 PM CONSUMER EDUCATION SPECIALIST Oxygen Saturation 96% 03/24/2023 2:17 PM CONSUMER EDUCATION SPECIALIST Inhaled Oxygen Concentration - - Weight 84.3 kg (185 lb 12.8 oz) 03/24/2023 2:17 PM CONSUMER EDUCATION SPECIALIST Height 162.6 cm (5' 4) 03/24/2023 2:17 PM CONSUMER EDUCATION SPECIALIST Body Mass Index 31.89 03/24/2023 2:17 PM CONSUMER EDUCATION SPECIALIST Plan of Treatment Health Maintenance Due Date [...] patient's age to complete this topic Insurance [facility] Care Teams Floriculturist Relationship Specialty Start Date End Date Jorge Luis Hill MD [address] [place] [address] [address] [place] [address] PCP - General 02/10/17
== END 2024-12-13 14:46 | disposition home or self-care (01) ==
PROVIDERS: PCP Emergency Medicine; Visit Provider Emergency Medicine
DX: Z12.31 Encounter for screening mammogram for malignant neoplasm of breast (principal)
CPT/HCPCS: 77063; 77067

== ENCOUNTER 2024-12-20 00:23 | Emergency (ER) | payer OTHER, SELFPAY ==
[2024-12-20] VITALS (18 sets, daily range): BP systolic 89–121; BP diastolic 69–86; PULSE 94–98; RESP 20–23; TEMP 36.8–37.1; O2SAT 93–99
--- NOTE | ~2024-12-20 | CT_ITS ---
EXAMINATION: CT lumbar spine wo con DATE: 12/20/2024 04:09 INDICATION: Lumbar pain post ablation procedure TECHNIQUE: Computed tomography (CT) of the lumbar spine was performed without intravenous contrast. Automated exposure control and iterative reconstruction technique were employed. The dose-length product was 1210.72 mGy-cm. COMPARISON: CT dated 11/07/2022 FINDINGS: Bone alignment is normal. Unchanged chronic mild anterior wedging at T12. Also unchanged is a chronic mild L1 compression fracture with 20% anterior vertebral body height loss. Remaining vertebral body heights are normal. No acute fractures. Moderate disc height loss at L5-S1 and mild disc height loss at L3-L4 and L4-L5. 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 1.7 cm left renal cyst. Paravertebral soft tissues are unremarkable. The following disc levels are specifically discussed: T10-T11: The disc does not extend beyond the endplate margin. There is mild bilateral facet osteoarthritis. There is mild left neural foraminal stenosis. There is no central canal stenosis. T11-T12: The disc does not extend beyond the endplate margin. There is mild right and moderate left facet joint osteoarthritis. There is mild left neural foraminal stenosis. There is no central canal stenosis. T12-L1: The disc does not extend beyond the endplate margin. There is mild to moderate right and moderate left facet joint osteoarthritis. There is no neural foraminal stenosis. There is no central canal stenosis. L1-L2: The disc does not extend beyond the endplate margin. There is severe bilateral facet joint osteoarthritis. There is no neural foraminal stenosis. There is no central canal stenosis. L2-L3: Disc is bulging. There is severe bilateral facet joint osteoarthritis. There is mild bilateral neural foraminal stenosis. There is mild central canal stenosis. L3-L4: Disc is bulging, eccentric to the left. There is severe bilateral facet joint osteoarthritis. There is mild right and moderate left neural foraminal stenosis. There is mild central canal stenosis. L4-L5: Disc is bulging. There is severe bilateral facet joint osteoarthritis. There is mild right and mild to moderate left neural foraminal stenosis. There is mild central canal stenosis. L5-S1: Posterior disc osteophyte complex. There is severe bilateral facet joint osteoarthritis. There is mild right and severe left neural foraminal stenosis. There is mild central canal stenosis. IMPRESSION: 1. Moderate lumbar spondylosis. No evident acute abnormality. Reviewed, dictated and finalized at location A.
--- OUTSIDE RECORDS SUMMARY | 2024-12-20 00:26 | XMS_ITS | Encounter Summary ---
Author Organization [facility] Address [address] [place] [address] Phone Care Team Providers Care Power Plant Installer Name Role Phone Jorge Luis Hill MD Primary Care Provider [phone] Encounter Details Date Type Department Care Team (Late st Contact Info) Description 05/03/2022 Telephone [facility] - [address] [place] [address] Janette Holcomb RN Social History Tobacco Use [...] often do you attend chur ch or sikhism services? Never 12/22/2021 Do you belong to [...] in a custodial (including now)? No 12/22/2021 Comments No Sex and Gender Information Value Date Recorded Sex Assigned at Not on file Legal Sex Female 1:34 AM AURICULAR DETOXIFICATION SPECIALIST Gender Identity Not on file Sexual Orientation Not on file documented as of this encounter Plan of Treatment Not on file documented as of this encounter Visit Diagnoses Not on filedocumented in this encounter Additional Health Concerns Infection Onset Date Last Indicated Resolved Time MDR gram neg/ESBL 2022 2022 documented as of this encounter Care Teams Power Plant Installer Relationship Specialty Start Date End Date Jorge Luis Hill MD PCP - General 04/30/18 documented as of this encounter
--- OUTSIDE RECORDS SUMMARY | 2024-12-20 00:26 | XMS_ITS | Clinical Summary ---
Author Organization [facility] Address [address] [facility] [place] [address] Care Team Providers Care Sailmaker Name Role Phone Jorge Luis Hlil MD Primary Care Provider [phone] Medications PROAIR HFA 90 mcg/actuation inhaler INHALE [...] mg tablet Active naloxone (Narcan) 4 mg/spray [place], Non-Aerosol Narcan 4 mg/actuation nasal spray 03/18/19 [...] Insurance [employer] Care Teams Sailmaker Relationship Specialty Start Date End Date Jorge Luis Hill MD PCP - General Emergency Medicine 05/30/18
--- OUTSIDE RECORDS SUMMARY | 2024-12-20 00:26 | XMS_ITS | Encounter Summary ---
Author Organization [facility] Address [address] [place] [address] Phone Care Team Providers Care Framing And Hanging Name Role Phone Jorge Luis Hill MD Primary Care Provider [phone] Encounter Details Date Type Department Care Team (Late st Contact Info) Description 10/22/2024 Results Follow-Up [facility] [address] [facility] [address] 13th [place] [address] [place] [id number] Paola Willard, B[place] [address] [facility] [address] [place] [address] [phone] Albumin Creatinine Ratio, Urine, Urinalysis reflex to [...] often do you attend chur ch or alevism services? Never 12/22/2021 Do you belong to [...] place to sleep or slept in a fci (including now)? No 12/22/2021 Personal Safety Answer Date Recorded Getting School Help Needed Denies 02/11 Comments No Sex and Gender Information Value Date Recorded Sex Assigned at Not on file Legal Sex Female 1:34 AM OPERATIONS LEAD Gender Identity Not on file Sexual Orientation Not on file documented as of this encounter Plan of Treatment Not on file documented as of this encounter Visit Diagnoses Not on filedocumented in this encounter Additional Health Concerns Infection Onset Date Last Indicated Resolved Time MDR gram neg/ESBL 2022 2022 documented as of this encounter Care Teams Framing And Hanging Relationship Specialty Start Date End Date Jorge Luis Hill MD PCP - General 04/30/18 documented as of this encounter
--- OUTSIDE RECORDS SUMMARY | 2024-12-20 00:26 | XMS_ITS | Clinical Summary ---
Author Organization [facility] Address [address] [facility] [place] [address] Care Team Providers Care Aix Architect Name Role Phone Jorge Luis Hill MD Primary Care Provider [phone] Source Comments [facility],non-owned Affiliates and Associated Physician Practices is amultiple site organization consisting of ambulatory clinics and hospital sitesin [place], [place], [place] and [place]. This disclosure is being madepursuant to the Care Everywhere program and may not contain all information available regarding this patient. Last updated 17.[facility] Allergies No known active allergies Medications * [...] naloxone HCl (Narcan) 4 MG/0.1ML nasal spray [place] 40 (forty) sprays into the nose as [...] on file Legal Sex Female 7:26 PM GROCERY TEAM MEMBER Gender Identity Not on file Sexual Orientation Not on file Last Filed Vital Signs Vital Sign Reading Time Taken Comments Blood Pressure 155/92 03/24/2023 2:17 PM GROCERY TEAM MEMBER Pulse 101 03/24/2023 2:17 PM GROCERY TEAM MEMBER Temperature 36.7 C (98 F) 03/24/2023 2:17 PM GROCERY TEAM MEMBER Respiratory Rate 18 03/24/2023 2:17 PM GROCERY TEAM MEMBER Oxygen Saturation 96% 03/24/2023 2:17 PM GROCERY TEAM MEMBER Inhaled Oxygen Concentration - - Weight 84.3 kg (185 lb 12.8 oz) 03/24/2023 2:17 PM GROCERY TEAM MEMBER Height 162.6 cm (5' 4) 03/24/2023 2:17 PM GROCERY TEAM MEMBER Body Mass Index 31.89 03/24/2023 2:17 PM GROCERY TEAM MEMBER Plan of Treatment Health Maintenance Due [...] patient's age to complete this topic Insurance [facility] Care Teams Aix Architect Relationship Specialty Start Date End Date Jorge Luis Hill MD [address] [place] [address] [address] [place] [address] PCP - General 02/10/17
--- OUTSIDE RECORDS SUMMARY | 2024-12-20 00:26 | XMS_ITS | Encounter Summary ---
Author Organization [facility] Address [address] [place] [address] Phone Care Team Providers Care Quenching Machine Operator Name Role Phone Jorge Luis Hill MD Primary Care Provider [phone] Encounter Details Date Type Department Care Team (Late st Contact Info) Description 05/07/2022 Documentation [facility] - [facility] Medicine ENT [address] [facility] [address] 11th [place] [address] [place] [address] Amadeo Bazzi MD [address] [place] [address] Social History Tobacco Use Types Packs/Day Years [...] week 12/22/2021 How often do you attend [facility] or restorationism services? Never 12/22/2021 Do you belong to [...] on file Legal Sex Female 1:34 AM SECURITY POLICE Gender Identity Not on file Sexual Orientation Not on file documented as of this encounter Plan of Treatment Not on file documented as of this encounter Visit Diagnoses Not on filedocumented in this encounter Additional Health Concerns Infection Onset Date Last Indicated Resolved Time MDR gram neg/ESBL 2022 2022 documented as of this encounter Care Teams Quenching Machine Operator Relationship Specialty Start Date End Date Jorge Luis Hill MD PCP - General 04/30/18 documented as of this encounter
--- OUTSIDE RECORDS SUMMARY | 2024-12-20 00:26 | XMS_ITS | Clinical Summary ---
Author Organization [facility] Address [address] [place] [address] Phone Care Team Providers Care Die Attacher Name Role Phone Jorge Luis Hill MD Primary Care Provider [phone] Allergies No known active allergies Medications aspirin [...] nightly 01/03/20 20 Active cholecalciferol (VITAMIN D-3) 35525 unit tablet Take 1 tablet (50,000 Units [...] Information given regarding [place] Tobacco Quit line: [id number] for free services - 5 minutes spent [...] echocardiogram, Assessment & Plan (02/13/2024 11:58 AM BIOFUELS PRODUCTION TECHNICIAN): Continue supplemental oxygen for saturations 90% I have advised her to get a home pulse oximeter and bring it to her next visit for comparison She has a visit with our manager long term care upcoming and will likely have an echocardiogram. [...] (01/03/2022): Added automatically from request for surgery [id number] Smoking 12/14/2021 Assessment & Plan (12/19/2021 11:55 [...] months Assessment & Plan (01/14/2022 11:03 AM BIOFUELS PRODUCTION TECHNICIAN): - Pt has completed 4 weeks of [...] tract. If no surgical plan, Resume diet. Business Trainer re supplements. Pain control with prn tylenol [...] care Assessment & Plan (02/13/2024 11:59 AM BIOFUELS PRODUCTION TECHNICIAN): Continue Symbicort twice daily Continue Spiriva twice [...] 12/13/2021 Assessment & Plan (02/13/2024 11:57 AM BIOFUELS PRODUCTION TECHNICIAN): Continue PAP with all sleep She is aware of the risks of uncorrected sleep apnea Assessment & Plan (12/21/2021 12:03 PM CDT): Exacerbated by BMI 42. Alert, oriented. Outpatient PSG Assessment & Plan (12/13/2021 11:24 AM CDT): Exacerbated by BMI 42. Alert, oriented. Morbid obesity with BMI of 40.0-44.9, adult 11/27 Assessment & Plan (12/14/2021 3:10 PM CDT): BMI 42.07, 104.3kg this admit. Business Trainer to see retirement weight loss management goals with PCP, hx DM, HTN, ELIOT & may benefit from bariatric evaluation. Assessment & Plan (12/13/2021 10:25 AM CDT): BMI 42.07, 104.3kg this admit. Business Trainer to see retirement weight loss management goals with PCP, hx DM, HTN, ELIOT & may benefit from bariatric evaluation. Pancreatic cyst 01/10/2020 Overview (01/10/2020): Added automatically from request for surgery [id number] Resolved Problems Problem Noted Date Diagnosed Date Resolved Date Nicotine dependence, cigarettes, in remission 02/13/20 24 06/14/2024 Assessment & Plan (02/13/2024 11:57 AM BIOFUELS PRODUCTION TECHNICIAN): Quit in November of 2023 She is due for annual CT chest in February of 2023 Encounters Date Type Department Care Team Description 11/29/2024 1:30 PM CDT Office Visit [facility] Medicine Nephrology [address] 5th [place] [address] [place] [address] Maged Mckeon MD Chronic kidney disease (CKD), stage 2 (Primary Dx); Type 2 diabetes mellitus with hyperglycemia, without long-term current use of insulin (HCC) 11/21/2024 Orders Only [facility] Medicine Nephrology [address] 5th [place] [address] [place] [address] Maged Mckeon MD PRESOTN (acute kidney injury) (Primary Dx); Hypertension associated with diabetes (HCC); Type 2 diabetes mellitus with hyperglycemia, without long-term current use of insulin (HCC) 11/07/2024 Telephone [facility] Cardiology [address] [place] [address] Riky Go MD 10/30/2024 1:20 PM CDT Office Visit [facility] Infectious Diseases [address] [place] [address] Aniyah Gooden NP Osteonecrosis of mandible (HCC) (Primary Dx) 10/29/2024 10:45 AM CDT Office Visit [facility] Cardiology [address] [place] [address] Riky Go MD 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, unspecified whether angina present (Primary Dx) 10/22/2024 Results Follow-Up [facility] [address]th [place] [address] [place] [id number] Paola Willard NP Albumin Creatinine Ratio, Urine, Urinalysis reflex to microscopic, NOTE, Additional followed-up results: 5 10/22/2024 Orders Only [facility] [address] [place] [address] [place] [address] Paola Willard NP Age-related osteoporosis without current pathological fracture (Primary Dx) 10/16/2024 12:00 PM CDT Office Visit [facility] [address] [place] [address] [place] [address] Paola Willard NP Age-related osteoporosis without current pathological fracture (Primary Dx); Acute kidney injury 10/16/2024 11:30 AM CDT Clinical Support [facility] [address] [place] [address] [place] [address] Post-menopausal (Primary Dx); Age-related osteoporosis without current pathological fracture; Osteopenia of multiple sites 10/16/2024 Telephone [facility] Bone Health [address] [facility] Medicine 13th [place] [address] [place] [address] Paola Willard NP 10/10/2024 Telephone [facility] Pulmonary at [place] [address] [place] [address] Ashley Kwon LPN Rf Spiriva, Albuterol inhaler 10/09/2024 Telephone [facility] [address] [place] [address] [place] [address] Paola Willard NP 09/20/2024 Telephone [facility] [address] [place] [address] Demetris Marc from Last 3 Months Immunizations Immunization Administration Dates Next Due Influenza, Quadrivalent, Spl it, Preservative Free, Intramuscular 12/28/2022 Pfizer Sars-Cov-2 Bivalent Vaccination (12+ YRS) 03/02/2022 Surgical History Surgery Date Site/Laterality Comments SECTION 1984, 1988 TOTAL ABDOMINAL HYSTERECTOMY W/ BILATERAL SALPINGOOPHORECTOMY 02/27/1995 - 02/27/1996 CASE ASSISTANT SHUNT INSERTION 02/27/2010 - 02/26/2011 COLONOSCOPY BRAIN [...] on file Legal Sex Female 1:34 AM BIOFUELS PRODUCTION TECHNICIAN Gender Identity Not on file Sexual Orientation Not on file Obstetrics History Last Filed Vital Signs Vital Sign Reading Time Taken Comments Blood Pressure 106/74 11/29/2024 1:31 PM CDT Pulse 88 11/29/2024 1:31 PM CDT Temperature 37.4 C (99.4 F) 11/29/2024 1:31 PM CDT Respiratory Rate 18 02/12/2024 2:42 PM BIOFUELS PRODUCTION TECHNICIAN Oxygen Saturation 95% 11/29/2024 1:31 PM CDT [...] Completed 12/15/2021 Medical Devices Implanted Type Area Computer Technologist Device Identifier Shelf Expiration Date Model / Serial / Lot Shunt Implanted:Qty: 2 Shunt Brain Synovis Azimo [place] Microvascular 3.5mm Ring Pin Protective Cover Jaw Assembly Latex Free [id number] - [id number] Implanted:Qty: 1 on 2022 by Ricci Shelton MD at [facility] Mandible Synovis Spine Wave [employer] [id number] 04/12/2026 [id number] / / [id number] Bolt Craniomaxillofaci al 2mm Primary Reconstruction Customize Mandible Bebeto Plate Bone [id number] - [id number] Implanted:Qty: 1 on 2022 by Ricci Shelton MD at [facility] Mandible Álvaro Craniomaxillofacial [id number] / / Álvaro Craniomaxillofaci al Leibinger [place] 2 2.3mm 6mm Lock Cross Pin Maxillofacial [id number] - [id number] Implanted:Qty: 1 on 2022 by Ricci Shelton MD at [facility] Mandible Álvaro Craniomaxillofacial [id number] / / Álvaro Craniomaxillofaci al Leibinger [place] 2 2.3mm 8mm Lock Cross Pin Maxillofacial [id number] - [id number] Implanted:Qty: 2 on 2022 by Ricci Shelton MD at [facility] Mandible Álvaro Craniomaxillofacial [id number] / / Bolt Craniomaxillofaci al Leibinger [place] 2 2.3mm 12mm Lock Cross Pin Maxillofacial [id number] - [id number] Implanted:Qty: 3 on 2022 by Ricci Shelton MD at [facility] Mandible Álvaro Craniomaxillofacial [id number] / / Álvaro Craniomaxillofaci al Leibinger [place] 2 2mm 6mm Self Tap Cross Pin Maxillofacial 50 - [id number] Implanted:Qty: 4 on 2022 by Ricci Shelton MD at [facility] Mandible Álvaro Craniomaxillofacial 50 / / Bolt Craniomaxillofaci al Leibinger [place] 2 2mm 6mm Lock Cross Pin Maxillofacial Screw 50 - [id number] Implanted:Qty: 1 on 2022 by Ricci Shelton MD at [facility] Mandible Álvaro Craniomaxillofacial 50 / / Explanted Type Area Computer Technologist Device Identifier Shelf Expiration Date Model / Serial / Lot Álvaro Craniomaxillofaci al Leibinger [place] 2 2mm 8mm Self Tap Cross Pin Maxillofacial 50 - [id number] Explanted:Qty: 4 on 2022 at [facility] Mandible Álvaro Craniomaxillofacial 50 / / Bolt Craniomaxillofaci al Leibinger [place] 2 2.3mm 8mm Self Tap Cross Pin Maxillofacial [id number] - [id number] Explanted:Qty: 1 on 2022 at [facility] Mandible Bolt Craniomaxillofacial [id number] / / [employer] Probe Doppler 17.4cm Standard Cuff Implantable 20mhz Latex Free Sterile Microvascular Anastomoses Carmen [id number] - [id number] Implanted:Qty: 1 on 2022 by Ricci Shelton MD at [facility] Explanted:Qty: 1 on 02/14/2022 by Marie Parr PA Right: Neck [employer] [id number] 10/27/2024 [id number] / / [id number] Procedures Procedure Name Priority Date/Time Associated Diagnosis [...] Read Routine (OP Routine) 03/25/2024 12:46 PM BIOFUELS PRODUCTION TECHNICIAN Nicotine dependence, cigarettes, uncomplicated POCT HEMOGLOBIN A1C Routine 08/07/2023 3:17 PM CDT Type 2 diabetes mellitus with hyperglycemia, without long-term current use of insulin (HCC) LIPID PANEL STAT 02/15/2022 2:00 PM BIOFUELS PRODUCTION TECHNICIAN HEPATITIS PANEL, ACUTE Routine 12/15/2021 11:19 PM [...] 10/18/2024 7:12 AM CDT SPLIT 10/16/2024 FROM [id number] us Paola Willard TIMBER WATCHMAN LAB BLOOD ORDERABLES Final Re sult [facility] [address] [place] [address] * (ABNORMAL) Urinalysis reflex to microscopic (10/17/2024 [...] 10/18/2024 7:12 AM CDT SPLIT 10/16/2024 FROM [id number] Paola Willard TIMBER WATCHMAN LAB URINE ORDERABLES Final Re sult Performing Organization Address [facility] Co de Phone Number [facility] [address] [place] [address] * Albumin Creatinine Ratio, Urine (10/17/2024 8:23 [...] 10/18/2024 7:12 AM CDT SPLIT 10/16/2024 FROM [id number] us Paola Willard NP LAB URINE ORDERABLES Final Re sult Performing Organization Address [facility]/ZIP Co de Phone Number [facility] [address] [place] [address] * C-Telopeptide, serum (10/16/2024 3:22 PM CDT) C telopeptide 228 pg/mL [facility], Comment: Reference Range: NOT ESTABLISHED Adult [...] loss. For additional information, please refer to http://education.[employer]/faq/HQJ658 (This link is being provided for informational/educational purposes only.) 10/16/2024 3:22 PM CDT 10/16/2024 3:23 PM CDT Narrative [facility] - 10/19/2024 3:35 PM CDT PATIENT UNABLE TO VOID; ADVISED TO RETURN FOR COLLECTION. Paola Willard TIMBER WATCHMAN LAB BLOOD ORDERABLES Final Re sult [facility], [address] [place] [address] * Alkaline phosphatase, bone specific (10/16/2024 3:22 PM CDT) Alk phos, bone 10.5 5.6 - 29.0 mcg/L [facility], 10/16/2024 3:22 PM CDT 10/16/2024 3:23 PM CDT Narrative [facility] - 10/19/2024 3:35 PM CDT PATIENT UNABLE TO VOID; ADVISED TO RETURN FOR COLLECTION. us Paola Willard TIMBER WATCHMAN LAB BLOOD ORDERABLES Final Re sult [facility], [address] [place] [address] * Vitamin D 25 hydroxy (10/16/2024 3:22 PM CDT) Vitamin D 25-OH 44 30 - 100 ng/mL [facility] Comment: Vitamin D Status 25-OH Vitamin D: Deficiency: <20 ng/mL Insufficiency: 20 - 29 ng/mL Optimal: > or = 30 ng/mL For 25-OH Vitamin D testing on patients on D2-supplementation and patients for whom quantitation of D2 and D3 fractions is required, the QuestAssureD(TM) 25-OH VIT D, (D2,D3), LC/MS/MS is recommended: order code 89587 (patients >2yrs). See Note 1 Note 1 For additional information, please refer to http://education.[employer]/faq/NND700 (This link is being provided for informational/ educational purposes only.) 10/16/2024 3:22 PM CDT 10/16/2024 3:23 PM CDT Narrative [facility] - 10/19/2024 3:35 PM CDT PATIENT UNABLE TO VOID; ADVISED TO RETURN FOR COLLECTION. Paola Willard TIMBER WATCHMAN LAB BLOOD ORDERABLES Final Re sult Performing Organization Address City/[facility]/ZIP Co de Phone Number [facility] [address] [place] [address] * (ABNORMAL) PTH (10/16/2024 3:22 PM CDT) Parathyroid hormone, intact 119(H) 16 - 77 pg/mL [facility] Comment: Interpretive Guide Intact PTH Calcium [...] BLOOD ORDERABLES Final Re sult [facility] [address] [facility] [place] [address] * (ABNORMAL) Renal function panel (10/16/2024 3:22 PM CDT) Glucose 94 65 - 99 mg/dL [facility] Comment: Fasting reference interval BUN 23 7 - 25 mg/dL [facility] Creatinine 1.08(H) 0.50 - 1.03 mg/dL [facility] eGFR 59(L) > OR = 60 mL/min/1.7 3m2 [facility] BUN/creat ratio 21 6 - 22 (calc) [facility] Sodium 140 135 - 146 mmol/L [facility] Potassium, pl 4.8 3.5 - 5.3 mmol/L [facility] Chloride 103 98 - 110 mmol/L [facility] CO2 29 20 - 32 mmol/L [facility] Calcium 9.3 8.6 - 10.4 mg/dL [facility] Phosphorus, sr 2.8 2.5 - 4.5 mg/dL [facility] Albumin 4.5 3.6 - 5.1 g/dL [facility] 10/16/2024 3:22 PM CDT 10/16/2024 3:23 PM CDT Narrative [facility] - 10/19/2024 3:35 PM CDT PATIENT UNABLE TO VOID; ADVISED TO RETURN FOR COLLECTION. Paola Willard NP LAB BLOOD ORDERABLES Final [facility] [address] [place] [address] * Dexa TBS Axial Skeleton Bone Density 1 or more sites (10/16/2024 12:16 PM CDT) Anatomical Region Laterality Modality Wrist, Body N/A Radiographic Yani ging Narrative 10/16/2024 3:40 PM CDT Patient Name: Bev Grossman Date of : 1965 Date of scan: 10/16/2024 Bone mineral density was performed on a HoloOptini Discovery Densitometer. Based on machine cross-calibration and [...] by the International Society of Clinical Densitometry. [id number] us Paola Willard NP IMG DXA PROCEDURES Edited Res ult - Final * CT Lung Cancer Screening (03/25/2024 12:46 PM BIOFUELS PRODUCTION TECHNICIAN) Anatomical Region Laterality Modality Chest N/A Computed Tomogra phy 03/26/2024 9:54 AM BIOFUELS PRODUCTION TECHNICIAN Narrative 03/26/2024 10:03 AM BIOFUELS PRODUCTION TECHNICIAN EXAM DESCRIPTION: CT LUNG CANCER SCREENING REASON [...] Almita Miller D.O. PS: PS Report ID: [id number] Reading Location: [id number] Procedure Note Almita Miller, DO - 03/26/2024 [...] Almita Miller D.O. PS: PS Report ID: [id number] Reading Location: [id number] Ethan Leung MD IM CT PROCEDURES Final Result * (ABNORMAL) POCT hemoglobin A1c (08/07/2023 3:17 PM CDT) Hemoglobin A1C, POC 5.9 % Capillary blood 08/07/2023 3 :17 PM CDT Briana Santana MD POINT OF CARE TEST ORDERABLES Fi nal Result * (ABNORMAL) Lipid panel (02/15/2022 2:00 PM BIOFUELS PRODUCTION TECHNICIAN) Cholesterol 161 30 - 199 mg/dL [facility] Comment: Interpretive Data [...] revised on 2017. Triglycerides 253(H) <=149 mg/dL [facility] Comment: Interpretive Data [...] on 2017. HDL 42 >=40 mg/dL [facility] Comment: Interpretive Data [...] on 2017. LDL, calculated 68 <=129 mg/dL [facility] Comment: Interpretive Data Ages < [...] revised on 2017. Non-HDL Cholesterol 119 mg/dL [facility] Comment: Interpretive Data Ages < [...] last revised on 2017. Chol/HDL ratio 4 [facility] Blood 02/15/2022 2:00 PM BIOFUELS PRODUCTION TECHNICIAN 02/15/2022 5:52 PM BIOFUELS PRODUCTION TECHNICIAN Neri Loco MD LAB BLOOD ORDERABLES Fi nal Result [facility] [address] [facility] [place] [address] * Hepatitis panel, acute (12/15/2021 11:19 PM CDT) Hep A IgM Nonreactive Nonreactive Comment: Interpretive Data: If Hep A IgM Ab is reported as Equivocal, a new sample should be drawn in two weeks for testing. Current interpretive data was last revised on 19. Hep B core IgM Nonreactive Nonreactive [facility] Comment: Interpretive Data If HepB Core IgM Ab is reported as Equivocal, a new sample should be drawn in two weeks for testing. Current interpretive data was last revised on 19. Hep C Ab Nonreactive Nonreactive [facility] Comment:Antibodies to HCV no t detected. Does NOT exclude the possibility of recent exposure to HCV. HepBsAg Nonreactive Nonreactive [facility] Blood 12/15/2021 11:1 9 PM CDT 12/16/2021 12:30 AM CDT us Orly Fine MD LAB MICROBIOLOGY - GENERAL O RDERABLES Edited Result - Final [facility] [place] [address] from Last 3 Months or Most Recently Relevant to Health Maintenance Additional Health Concerns Infection Onset Date Last Indicated MDR gram neg/ESBL 2022 2022 Insurance [facility] Advance Directives For more information, please contact: [phone] * Full Code (Latest Code Status on File) Date Activated Date Inactivated Comments 04/26/2022 9:48 PM 05/03/2022 6:39 PM * Full Code Date Activated Date Inactivated Comments 2022 9:27 PM 02/14/2022 9:56 PM * Full Code Date Activated Date Inactivated Comments 12/13/2021 5:40 PM 12/21/2021 6:14 PM * Full Code Date Activated Date Inactivated Comments 01/22/2020 1:18 PM 01/22/2020 10:15 PM Care Teams Die Attacher Relationship Specialty Start Date End Date Jorge Luis Hill MD PCP - General 04/30/18
--- OUTSIDE RECORDS SUMMARY | 2024-12-20 00:26 | XMS_ITS | Data Portability ---
Author Organization [place] [facility], Main Office Address [address] [place] [address] Care Team Providers Care Dog Obedience Instructor Name Role Phone MASSIMO QUINTANA Primary Care Provider Assessment No assessment recorded. Plan of Treatment Reminders Order Date Submit Date Provider Last Modified By Organization Details Last Modified Time Details Appointments Follow Up 2024 02:00P M Lisa Zelaya NP Not available Not available Not available Lab None recorded. Referral None recorded. Procedures None recorded. Surgeries None recorded. Imaging None recorded. Medication Orders Breztri Aerospher e 160 mcg-9mcg- 4.8mcg/ac tuation HFA aerosol inhaler 2022 023 [id number], [address], [place], [id number], 11/30/2022 21:32:06 albuterol sulfate HFA 90 mcg/actua tion aerosol inhaler 2022 023 [facility] #[id number], [address], [place], [id number], 11/30/2022 21:32:06 ropinirol e 0.5 mg tablet [address] [facility], [address] [place], [address], 07/05/2022 21:39:36 Patient TargetsNo targets recorded. Patient InstructionsNo instructions recorded. Reason for Referral None Reported. Results Created Date Observation Date Name Description Value Unit Range Abnormal Flag Note LastModifiedBy Organization Detail LastModifiedTime 12/11/19 22 12/07/2021 six minut e walk test* No observ ation record ed. [id number] [facility] (Cardiology & Emg) [facility]0 [facility] [address] [place] [address], [phone], 04/27/2022 01:23:36 12/11/19 22 12/07/2021 compl ete PFT w/ post [facility] hodil ator clarisa metry * No observ ation record ed. [id number] [facility] (Cardiology & Emg) [address] [place] [address] [place] [address], [phone], 04/27/2022 01:23:36 12/25/19 22 12/07/2021 compl ete PFT w/ post [facility] hodil ator clarisa metry * No observ ation record ed. [id number] [place] [address] (Cardiology & Emg) [address] [place] [address] [place] [address], [phone], 04/27/2022 01:23:36 12/25/19 22 12/07/2021 six minut e walk test* No observ ation record ed. [id number] [facility] (Cardiology & Emg) [address] [place] [address] [place] [address], [phone], 04/27/2022 01:23:36 Result Notes None recorded. Problems Name Problem SNOMED Code Status Onset Date Resolution Date Notes Provider Name and Address Organization Details Recorded Time Chronic obstructive pulmonary disease 76015288 Active 2017 Not Available [facility] 3 01:04:05 Body mass index 30+ - obesity 736987714 Active 2017 Not Available [employer] 3 01:04:05 Gastroesophag eal reflux disease without esophagitis 382923790 Active 2017 Not Available [facility] 3 01:04:05 Periodic limb movement disorder 035000620 Active 2017 Not Available [facility] 3 01:04:05 Dyspnea on exertion 30659453 Active 2017 Not Available [facility] 3 01:04:06 Obstructive sleep apnea syndrome 03962406 Active 2017 Not Available [facility] 3 01:04:06 Fatigue 09653376 Active 2017 Not Available [facility] 3 01:04:06 Tobacco dependence syndrome 88081247 Active 2017 Not Available [facility] 3 01:04:06 Allergic rhinitis 34352030 Active 2020 Not Available [facility] 3 01:04:06 Nicotine dependence 67691096 Active 2020 Not Available [facility] 3 01:04:05 Tachycardia 5588248 Active 2021 Not Available [facility] 3 01:04:05 Infection of tooth 666257370 Active 2021 Not Available [facility] 3 01:04:05 Chronic cough 95070318 Active 2021 Not Available [facility] 3 01:04:06 Hemoptysis 15793153 Active 2021 Not Available [facility] 3 01:04:06 Abscess of submandibular region 25643700 Active 2021 Not Available [facility] 3 01:04:05 Problem Notes None recorded. Procedures Surgical History Date Name Laterality Status Provider Name and Address Organization Details Recorded Time 2 colonoscopy completed Not Available [facility] 04/28/19 23 00:52:48 Imaging Results None recorded. [...] Pulse oximetry Inhaled oxygen flow rate Systolic And Diastolic Provider Name and Address Organization Details Last Updated DateTime 3 156.21 cm 96.6 [degF] 100 /min 97 % 97 % 2 L/min 120/70 mm[Hg] Bessie Ty [facility] [employer] [facility] 3 14:04:16 Date Recorded Body height Body temperature Heart rate Oxygen saturation Oxygen saturation in Arterial blood by Pulse oximetry Inhaled oxygen flow rate Systolic And Diastolic Provider Name and Address Organization Details Last Updated DateTime 3 156.21 cm 97.3 [degF] 98 /min 95 % 95 % 2 L/min 120/64 mm[Hg] Bessie Ty [facility] [employer] [facility] 3 14:25:29 Date Recorded Body height Oxygen saturation Oxygen saturation in Arterial blood by Pulse oximetry Heart rate Systolic And Diastolic Provider Name and Address Organization Details Last Updated DateTime 2 156.21 cm 98 % 98 % 91 /min 120/62 mm[Hg] Not Available [facility] 3 00:54:34 Date Recorded Body height Heart rate Oxygen saturation Oxygen saturation in Arterial blood by Pulse oximetry Inhaled oxygen flow rate Systolic And Diastolic Provider Name and Address Organization Details Last Updated DateTime 3 156.21 cm 112 /min 97 % 97 % 2 L/min 118/68 mm[Hg] Laura Kwon [facility] [employer] [facility] 3 16:29:56 Date Recorded Body mass index (BMI) Body height Oxygen saturation Oxygen saturation in Arterial blood by Pulse oximetry Heart rate Body weight Systolic And Diastolic Provider Name and Address Organization Details Last Updated DateTime 2 42.8 kg/m2 156.21 cm 98 % 98 % 90 /min 873998. 25 g 126/72 mm[Hg] Not Available [facility] 3 00:54:34 Social History Question Answer Notes LastModified by Organization Details LastModified Time Tobacco Smoking Status Current Every Day Smoker Not Available [facility] 04/27/2022 00:48:19 Do You Have An Advance Directive? No MIGRATION.0301 [id number] Information not available 04/27/2022 What Is Your Level Of Caffeine Consumption? Heavy Coffee Drinker All Day Longer MIGRATION.0301 [id number] Information not available 04/27/2022 How Much Tobacco Do You Chew? None MIGRATION.0301 193797 Information not available 04/27/2022 In The 14 Days Before Symptom Onset, Have You Had Close Contact With A Laboratory-confi rmed COVID-19 While That Case Was Ill? No MIGRATION.0301 [id number] Information not available 04/27/2022 In The 14 Days Before Symptom Onset, Have You Had Close Contact With A Person Who Is Under Investigation For COVID-19 While That Person Was Ill? No MIGRATION.0301 169583 Information not available 04/27/2022 What Type Of Diet Are You Following? REGULAR MIGRATION.0301 403509 Information not available 04/27/2022 Which Illicit Or Recreational Drugs Have You Used? None MIGRATION.0301 473036 Information not available 04/27/2022 Do You Have An Electrostatic Air Filter? No MIGRATION.0301 979585 Information not available 04/27/2022 Do You Have A Humidifier? No MIGRATION.0301 989247 Information not available 04/27/2022 Where Do You Live? [facility] MIGRATION.0301 965413 Information not available 04/27/2022 Do You Have Moisture Problems In Your Home? No MIGRATION.0301 370041 Information not available 04/27/2022 What Was The Date Of Your Most Recent Tobacco Screening? 12/01/2020 MIGRATION.0301 259647 Information not available 04/27/2022 How Many Children Do You Have? 2 MIGRATION.0301 727945 Information not available 04/27/2022 Have You Ever Been Counseled For Unhealthy Alcohol Use? No MIGRATION.0301 763650 Information not available 04/27/2022 Do You Have Any Pets? Yes Dogs Inside MIGRATION.0301 880335 Information not available 04/27/2022 Do You Have Smoke And Carbon Monoxide Detectors In Your Home? Yes MIGRATION.0301 678194 Information not available 04/27/2022 At What Age Did You Start Smoking Tobacco? 12 MIGRATION.0301 409241 Information not available 04/27/2022 Are You Passively Exposed To Smoke? Yes MIGRATION.0301 425515 Information not available 04/27/2022 How Much Tobacco Do You Smoke? 0.5 PPD MIGRATION.0301 264876 Information not available 04/27/2022 Has Tobacco Cessation Counseling Been Provided? No MIGRATION.0301 639164 Information not available 04/27/2022 How Many Years Have You Smoked Tobacco? 47 MIGRATION.0301 605263 Information not available 04/27/2022 Have You Recently Traveled Abroad? No MIGRATION.0301 009488 Information not available 04/27/2022 Do You Have Any Dietary Restrictions? No MIGRATION.0301 531026 Information not available 04/27/2022 Sex: Female Functional Status Question Answer Note LastModified by Organizat ion Details LastModified Time Do you use any illicit or recreational drugs? No MIGRATION.299403 7383 Information not available 04/27/2022 Do you or have you ever used any other forms of tobacco or nicotine? No MIGRATION.746899 5290 Information not available 04/27/2022 What is your level of alcohol consumption? None MIGRATION.487678 5399 Information not available 04/27/2022 Do you or have you ever used smokeless tobacco? 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 Never used electronic cigarettes MIGRATION.416732 8370 Information not available 04/27/2022 What is your exercise level? None MIGRATION.141650 0770 Information not available 04/27/2022 Mental Status None recorded. Family History Relationship Description Onset Age of this Age Resolved Age Notes LastModified by Organization Details LastModified Time Mother Heart disease MIGRATION.837 [id number] Not available 04/27/2022 00:52:53 Mother Hyperlipidem ia MIGRATION.291 [id number] Not available 04/27/2022 00:52:53 Father Diabetes mellitus MIGRATION.885 [id number] Not available 04/27/2022 00:52:54 Father Hypertensive disorder MIGRATION.902 [id number] Not available 04/27/2022 00:52:54 Father Hyperlipidem ia MIGRATION.145 [id number] Not available 04/27/2022 00:52:54 Maternal Grandmother Hypertensive disorder MIGRATION.542 [id number] Not available 04/27/2022 00:52:54 Maternal Grandmother Diabetes mellitus MIGRATION.843 8067227 Not available 04/27/2022 00:52:54 Maternal Grandmother Hyperlipidem ia MIGRATION.259 [id number] Not available 04/27/2022 00:52:54 Maternal Aunt Tuberculosis MIGRA TION.542 [id number] Not available 04/27/2022 00:52:54 Medical History Condition Response HEADACHES/MIGRAINES Y OBESITY Y GERD/NAUSEA Y DIABETES, TYPE Y LUNG DISEASE/DISORDER Y INSOMNIA Y HAVE YOU BEEN HOSPITALIZED OR SEEN IN [facility] ER IN THE PAST YEAR ? Y HYPERTENSION Y HIGH CHOLESTEROL / HYPERLIPIDEMIA Y Gynecological HistoryNo gynecological history recorded. Obstetrics History GPAL:G 0 P 0 0 0 0 Immunizations Vaccine Type Date Status Note Provider Nam e and Address Organization Details Recorded Time COVID-19, mRNA, LNP-S, PF, 30 mcg/0.3 mL dose 08/26/2020 completed Not Available [facility] 3 01:22:02 COVID-19, mRNA, LNP-S, PF, 30 mcg/0.3 mL dose 08/05/2020 completed Not Available [facility] 3 01:22:02 Influenza, split virus, quadrivalent, PF 01/10/2022 completed Not Available [facility] 3 01:22:03 Past Encounters Encounter ID Performer Location Encounter Start Date Encounter Closed Date Diagnosis/Indication Diagnosis SNOMED-CT Code Diagnosis ICD10 Code Diagnosis IMO Codes Diagnosis Note [id number] Jany Hernandez, [facility] [address] [place] [address] 05/04/2020 00:00:00 05/04/2020 16:30:03 [id number] [facility] [place] [address] [place] [address] 08/04/2020 00:00:00 08/04/2020 22:05:39 [id number] [facility] [place] [address] [place] [address] 12/01/2020 00:00:00 12/01/2020 16:42:55 [id number] [facility] [place] [address] [place] [address] 01/18/2021 00:00:00 01/18/2021 13:55:44 [id number] MD NATHAN Obando IGRATION_ DEFAULT_1 _1 , 05/06/2021 00:00:00 05/06/2021 20:34:03 [id number] [facility] [place] [address] [place] [address] 05/17/2021 00:00:00 05/17/2021 15:36:20 [id number] MD NATHAN Obando IGRATION_ DEFAULT_1 _1 , 07/01/2021 00:00:00 07/01/2021 18:04:40 [id number] PATRICA Hardy [facility] [place] [address] [place] [address] 08/17/2021 00:00:00 08/17/2021 15:25:57 [id number] PATRICA Hardy S[facility] [place] [address] [place] [address] 11/29/2021 00:00:00 11/29/2021 14:11:03 [id number] PATRICA Hardy [facility] [place] [address] [place] [address] 01/10/2022 00:00:00 01/10/2022 22:47:30 [id number] [facility] [address] [address] 08/17/2020 00:00:00 08/17/2020 19:27:11 [id number] [facility] [address] [address] 09/16/2020 00:00:00 09/16/2020 17:31:30 [id number] Lisa Zelaya ROOM SERVICE [facility] [address] [address] 10/14/2020 00:00:00 10/14/2020 16:40:48 [id number] Lisa Zelaya ROOM SERVICE [facility] [address] [address] 11/11/2020 00:00:00 11/11/2020 16:25:13 [id number] Lisa Zelaya, ROOM SERVICE BELLHOP [facility] [address] [place] [address] 12/10/2020 00:00:00 12/10/2020 16:23:52 [id number] Lisa Zelaya, BEVERLY [facility] [address] [address] 02/01/2021 00:00:00 02/01/2021 12:49:29 [id number] Lisa Zelaya NP [facility] [address] [address] 03/18/2021 00:00:00 03/18/2021 15:50:51 [id number] Lisa Zelaya NP [facility] [address] [address] 04/28/2021 00:00:00 04/28/2021 16:40:45 [id number] Lisa Zelaya NP [facility] [address] [address] 05/26/2021 00:00:00 05/26/2021 18:15:58 [id number] Lisa Zelaya ROOM SERVICE BELLHOP [facility] [address] [address] 06/23/2021 00:00:00 06/23/2021 17:59:26 [id number] [facility] [address] [address] 07/21/2021 00:00:00 07/21/2021 18:12:22 [id number] Lisa Zelaya NP [facility] [address] [address] 09/23/2021 00:00:00 09/24/2021 15:34:34 [id number] Lisa Zelaya NP [facility] [address] [address] 10/26/2021 00:00:00 10/27/2021 11:35:19 [id number] Lisa Zelaya NP [facility] [address] [address] 12/23/2021 00:00:00 12/23/2021 17:16:35 [id number] Lisa Zelaya NP [facility] [address] [address] 03/01/2022 00:00:00 03/01/2022 15:14:47 [id number] Lisa Zelaya NP [facility] [address] [address] 05/18/2022 16:17:51 05/18/2022 19:08:45 [id number] Jany Hernandez, [facility] [place] [address] [place] [address] 05/24/2022 13:49:11 05/25/2022 08:31:43 Chronic obstructive pulmonary disease 06258379 J44.9 Trelegy Ellipta with persistent thrush reactions. 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 L iterature reviewed.A void triggers, support groups.Dis traction techniques Greater than 3 but less than 10 minutes spent discussing cessation. Declines NRT.Discus sed Rx options if needed in the future. Dependence on supplemental oxygen 1656389307 07 Z99.81 2 liters with activity on DC from [facility] C home care: / [phone] is compliant and has good benefit [id number] Jany Hernnadez, [facility] [place] [address] [place] [address] 07/05/2022 13:58:42 07/06/2022 08:23:18 Chronic obstructive pulmonary disease 48749153 J44.9 Trelegy Ellipta with persistent thrush reactions. 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 today with 77% [...] signs and symptoms Dependence on supplemental oxygen 1489858037 07 Z99.81 2 liters with activity on DC from hospital C home care: / [phone] is compliant and has good benefitPla n to repeat this fall Dyspnea on exertion 6084 5006 R06.09 Multifacto ralLabs except RAST WNLShe must quit smoking and lose weight Chronic cough 92087972 R 05.3 She must quit smoking and maintain inhaler compliance Benzonatat e PRN only - order verbally called to pharmacy todayhisto ry of multiple allergies to cat, dog, grassesCon tinue ClaritinSh e needs to see connie cleaner - previous referral Abscess of submandibular region 67425185 K12.2 CT Neck 12/13/21IM PRESSION:E rosion involving [...] cessation counseling and techniques reviewed at length. L iterature reviewed.A void triggers, support groups.Dis traction techniques Greater than 3 but less than 10 minutes spent discussing cessation. Declines NRT.Discus sed Rx options if needed in the future. [id number] Lisa Zelaya NP [facility] [address] [address] 08/17/2022 15:15:54 08/17/2022 18:08:44 [id number] Lisa Zelaya NP [facility] [address] [place] [address] [address] 09/22/2022 15:15:15 09/26/2022 17:03:51 [id number] Lisa Zelaya NP [facility] [address] [place] [address] [address] 11/15/2022 15:50:53 11/15/2022 16:43:16 [id number] Jany Hernandez, [facility] Pulmonolo [facility] [place] [address] [place] [address] 11/30/2022 16:05:16 11/30/2022 17:25:18 Chronic obstructive pulmonary disease 57132463 J44.9 Trelegy Ellipta with persistent thrush reactions. 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 wnload today with 80% [...] signs and symptoms Dependence on supplemental oxygen 7000585607 07 Z99.81 2 liters with activity on DC from [facility] home care: / [phone] is compliant and has good benefit Dyspnea on exertion 6084 5006 R06.09 Multifacto ralLabs except RAST WNLShe must quit smoking and lose weight Chronic cough 05860489 R 05.3 She must quit smoking and maintain inhaler compliance history of multiple allergies to cat, dog, grassesCon tinue ClaritinSh e needs to see connie cleaner - previous referral Abscess of submandibular region 99018282 K12.2 CT Neck 12/13/21IM PRESSION:E rosion involving [...] cessation counseling and techniques reviewed at length. L iterature reviewed.A void triggers, support groups.Dis traction techniques Greater than 3 but less than 10 minutes spent discussing cessation. Declines NRT.Discus sed Rx options if needed in the future. [id number] Lisa Zelaya NP [facility] [address] [address] 02/09/2023 16:02:05 02/09/2023 17:31:11 [id number] [facility] [address] [address] 05/02/2023 14:38:16 05/02/2023 15:37:25 [id number] Lisa Zelaya NP [facility] [address] [address] 09/25/2023 15:27:14 09/25/2023 17:33:48 [id number] Lisa Zelaya NP [facility] [address] [address] 11/30/2023 15:04:02 11/30/2023 15:47:13 [id number] Lisa Zelaya NP [facility] [address] [address] 02/14/2024 14:44:14 02/14/2024 15:16:38 [id number] Lisa Zelaya NP [facility] [address] [address] 04/09/2024 14:31:00 04/18/2024 12:13:35 [id number] Lisa Zelaya NP [facility] [address] [address] 07/08/2024 14:29:57 07/08/2024 15:19:04 [id number] Lisa Zelaya NP [facility] [address] [place] [address] [address] 09/05/2024 16:49:00 09/05/2024 18:17:58 [id number] Lisa Zelaya NP [facility] [address] [place] [address] 12/02/2024 15:51:30 12/02/2024 18:36:18 Health Concerns Section Related Observation LastModified by Organization Detai ls LastModified Time None Recorded Concern Status LastModified by Organization Details LastModified Time None Recorded Advance Directives Directive N: Payers Insurance Date Sequence Insurance Name Policy Number Policy Beth Covered Member ID Beth Member ID Guarantor Name 11/29/2024 1 [facility] - DOS ON OR AFTER 20 (MEDICAID REPLACEMENT - HMO) Bev Grossman [id number] Bev Grossman Notes Date Note Type Note Provider Name and Address Organization Details Recorded Time 05/24/2022 text/html Bev presents today to follow up on COPD, cough, dyspnea, PLMD, ELIOT, nicotine dependence, recent hospitalization for submandibular abscess with osteomyelitis - surgical debridement and repairShe has had part of her jaw removed [...] in the last 3 months Jany Hernandez, [facility] [address], [place], [address], [facility] [employer] 05/24/2022 16:45:47 07/05/2022 text/html Bev [...] respiratory infection in the last 4 months Jany Hernandez, MANA[facility] RE[facility]- [address] [facility], [place] [address], [place], [address], [employer] 07/05/2022 21:43:21 11/30/2022 text/html Bev presents today to follow up on COPD, cough, dyspnea, PLMD, ELIOT, nicotine dependenceRemains on Breztri with good clinical benefitDenies wheezing.Cough is daily but improvedShe has significantly decreased activity tolerance and staminaContinues to use wheelchair for most activityShe is living in a hotel and does not have a car currentlyShe is compliant nightly with PAPShe does feel like her CPAP changes have improved sleep and fatigueSmoking about 1/4 PPDDenies chest pain and unintentional weight loss.No dysphagia or GERDNo respiratory infection since last OV Jany Hernandez, MANAGER REHAB- [address] [facility], [facility] [address], [place], [address], Paddle8 11/30/2022 21:36:04 OBGyn Episode No OBEpisode recorded.
--- OUTSIDE RECORDS SUMMARY | 2024-12-20 00:26 | XMS_ITS | Clinical Summary ---
Author Organization [facility] Address [facility] [place] [address] Care Team Providers Care Auto Emissions Technician Name Role Phone Jorge Luis Hill MD Primary Care Provider [phone] Allergies No known active allergies Medications rosuvastatin [...] capsule 2 Active vitamin D2, ergocalciferol , 18319 UNITS capsule 2 Active escitalopram 20 MG [...] Comments Blood Pressure 106/76 05/05/2021 12:15 PM ESCROW REPRESENTATIVE Pulse 83 05/05/2021 12:15 PM ESCROW REPRESENTATIVE Temperature 36.1 C (96.9 F) 05/05/2021 11:58 AM ESCROW REPRESENTATIVE Respiratory Rate 14 05/05/2021 12:15 PM ESCROW REPRESENTATIVE Oxygen Saturation 94% 05/05/2021 12:15 PM ESCROW REPRESENTATIVE Inhaled Oxygen Concentration - - Weight 108.4 kg (239 lb) 05/05/2021 10:03 AM ESCROW REPRESENTATIVE Height 157.5 cm (5' 2) 05/05/2021 10:03 AM ESCROW REPRESENTATIVE Body Mass Index 43.71 05/05/2021 10:03 AM ESCROW REPRESENTATIVE Plan of Treatment Health Maintenance Due Date [...] Diagnosis Comments COLONOSCOPY Routine 05/05/2021 11:05 AM ESCROW REPRESENTATIVE from Last 3 Months or Most Recently Relevant to Health Maintenance Results * Colonoscopy (05/05/2021 11:05 AM ESCROW REPRESENTATIVE) Narrative Estuardo Wells MD - 05/05/2021 11:05 AM ESCROW REPRESENTATIVE Estuardo Wells MD 05/05/2021 12:05 PM ESTUARDO [...] the left lateral decubitus position, the Olympus [id number] colonoscope was introduced into the rectum and [...] of liver 04-14-2021 but was inpatient at [facility] - Will check to see if she had CT scan while inpatient Thank you for allowing me to care for your patient. She will follow-up with Dr. Hill as needed. Estuardo Wells M.D. Cc: Dr. Nithin Hill Estuardo Wells MD GI PROCEDURE ORDERABLES Fin al Result from Last 3 Months or Most Recently Relevant to Health Maintenance Insurance Care Teams Auto Emissions Technician Relationship Specialty Start Date End Date Jorge Luis Hill MD [address] [place] [id number] PCP - General FAMILY PRACTICE 11/25/19
--- OUTSIDE RECORDS SUMMARY | 2024-12-20 01:02 | XMS_ITS | Clinical Summary ---
Author Organization [facility] Address [address] [facility] [place] [address] Care Team Providers Care Manager Club Name Role Phone Jorge Luis Hill MD Primary Care Provider [phone] Source Comments [facility],non-owned Affiliates and Associated Physician Practices is amultiple site organization consisting of ambulatory clinics and hospital sitesin [place], [place], [place] and [place]. This disclosure is being madepursuant to the Care Everywhere program and may not contain all information available regarding this patient. 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 Gender Identity Not on file Sexual Orientation Not on file Last Filed Vital Signs Vital Sign Reading Time Taken Comments Blood Pressure 155/92 03/24/2023 2:17 PM COMMERCIAL HVAC SERVICE TECHNICIAN Pulse 101 03/24/2023 2:17 PM COMMERCIAL HVAC SERVICE TECHNICIAN Temperature 36.7 C (98 F) 03/24/2023 2:17 PM COMMERCIAL HVAC SERVICE TECHNICIAN Respiratory Rate 18 03/24/2023 2:17 PM COMMERCIAL HVAC SERVICE TECHNICIAN Oxygen Saturation 96% 03/24/2023 2:17 PM COMMERCIAL HVAC SERVICE TECHNICIAN Inhaled Oxygen Concentration - - Weight 84.3 kg (185 lb 12.8 oz) 03/24/2023 2:17 PM COMMERCIAL HVAC SERVICE TECHNICIAN Height 162.6 cm (5' 4) 03/24/2023 2:17 PM COMMERCIAL HVAC SERVICE TECHNICIAN Body Mass Index 31.89 03/24/2023 2:17 PM COMMERCIAL HVAC SERVICE TECHNICIAN Plan of Treatment Health Maintenance Due Date [...] patient's age to complete this topic Insurance [facility] Care Teams Manager Club Relationship Specialty Start Date End Date Jorge Luis Hill MD [address] [place] [address] [address] [place] [address] PCP - General 02/10/17
--- OUTSIDE RECORDS SUMMARY | 2024-12-20 01:02 | XMS_ITS | Clinical Summary ---
Author Organization [facility] Address [address] [place] [address] Phone Care Team Providers Care Library Associate Name Role Phone Jorge Luis Hill MD Primary Care Provider [phone] Allergies No known active allergies Medications aspirin [...] nightly 01/03/20 20 Active cholecalciferol (VITAMIN D-3) 12816 unit tablet Take 1 tablet (50,000 Units [...] use distraction techniques - Information given regarding [place] Tobacco Quit line: [id number] for free services - 5 minutes spent [...] echocardiogram, Assessment & Plan (02/13/2024 11:58 AM ASSET PROTECTION GREETER): Continue supplemental oxygen for saturations 90% I have advised her to get a home pulse oximeter and bring it to her next visit for comparison She has a visit with our freezing machine operator upcoming and will likely have an [...] (01/03/2022): Added automatically from request for surgery [id number] Smoking 12/14/2021 Assessment & Plan (12/19/2021 11:55 [...] months Assessment & Plan (01/14/2022 11:03 AM ASSET PROTECTION GREETER): - Pt has completed 4 weeks of [...] tract. If no surgical plan, Resume diet. Vocational Counselor re supplements. Pain control with prn tylenol [...] care Assessment & Plan (02/13/2024 11:59 AM ASSET PROTECTION GREETER): Continue Symbicort twice daily Continue Spiriva twice [...] 12/13/2021 Assessment & Plan (02/13/2024 11:57 AM ASSET PROTECTION GREETER): Continue PAP with all sleep She is aware of the risks of uncorrected sleep apnea Assessment & Plan (12/21/2021 12:03 PM CDT): Exacerbated by BMI 42. Alert, oriented. Outpatient PSG Assessment & Plan (12/13/2021 11:24 AM CDT): Exacerbated by BMI 42. Alert, oriented. Morbid obesity with BMI of 40.0-44.9, adult 11/27 Assessment & Plan (12/14/2021 3:10 PM CDT): BMI 42.07, 104.3kg this admit. Vocational Counselor to see [facility] weight loss management goals with PCP, hx DM, HTN, ELIOT & may benefit from bariatric evaluation. Assessment & Plan (12/13/2021 10:25 AM CDT): BMI 42.07, 104.3kg this admit. Vocational Counselor to see [facility] weight loss management goals with PCP, hx DM, HTN, ELIOT & may benefit from bariatric evaluation. Pancreatic cyst 01/10/2020 Overview (01/10/2020): Added automatically from request for surgery [id number] Resolved Problems Problem Noted Date Diagnosed Date Resolved Date Nicotine dependence, cigarettes, in remission 02/13/20 24 06/14/2024 Assessment & Plan (02/13/2024 11:57 AM ASSET PROTECTION GREETER): Quit in November of 2023 She is due for annual CT chest in February of 2023 Encounters Date Type Department Care Team Description 11/29/2024 1:30 PM CDT Office Visit [facility] Medicine Nephrology [address] [facility] Advanced Medicine 5th [place] [address] [place] [address] Maged Mckeon MD Chronic kidney disease (CKD), stage 2 (Primary Dx); Type 2 diabetes mellitus with hyperglycemia, without long-term current use of insulin (HCC) 11/21/2024 Orders Only [facility] Medicine Nephrology [address] [facility] Advanced Medicine 5th [place] [address] [place] [address] Maged Mckeon MD PRESTON (acute kidney injury) (Primary Dx); Hypertension associated with diabetes (HCC); Type 2 diabetes mellitus with hyperglycemia, without long-term current use of insulin (HCC) 11/07/2024 Telephone [facility] Cardiology [address] [facility] [address] [place] [address] Riky Go MD 10/30/2024 1:20 PM CDT Office Visit [facility] Infectious Diseases [address] [facility] [place] [address] Aniyah Gooden NP Osteonecrosis of mandible (HCC) (Primary Dx) 10/29/2024 10:45 AM CDT Office Visit [facility] Cardiology [address] 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, unspecified whether angina present (Primary Dx) 10/22/2024 Results Follow-Up [facility] [address] [facility] 13th [place] [address] [place] [address] Paola Willard NP Albumin Creatinine Ratio, Urine, Urinalysis reflex to microscopic, NOTE, Additional followed-up results: 5 10/22/2024 Orders Only [facility] [address] [facility] 13th [place] [address] [place] [address] Paola Willard NP Age-related osteoporosis without current pathological fracture (Primary Dx) 10/16/2024 12:00 PM CDT Office Visit [facility] [address] [facility] 13th [place] [address] [place] [address] Paola Willard NP Age-related osteoporosis without current pathological fracture (Primary Dx); Acute kidney injury 10/16/2024 11:30 AM CDT Clinical Support [facility] [address] [facility] 13th [place] [address] [place] [address] Post-menopausal (Primary Dx); Age-related osteoporosis without current pathological fracture; Osteopenia of multiple sites 10/16/2024 Telephone [facility] Bone Health [address] [facility] Medicine 13th [place] [address] [place] [address] Paola Willard NP 10/10/[address] [facility] Pulmonary [facility] [place] [address] [place] [address] Ashley Kwon LPN Rf Spiriva, Albuterol inhaler 10/09/2024 Telephone [facility] Health [address] [facility] 13th [place] [address] [place] [address] Paola Willard NP 09/20/2024 Telephone [facility] Center [address] [place] [address] Demetris Marc from Last 3 Months Immunizations Immunization Administration Dates Next Due Influenza, Quadrivalent, Spl it, Preservative Free, Intramuscular 12/28/2022 Pfizer Sars-Cov-2 Bivalent Vaccination (12+ YRS) 03/02/2022 Surgical History Surgery Date Site/Laterality Comments SECTION 1984, 1988 TOTAL ABDOMINAL HYSTERECTOMY W/ BILATERAL SALPINGOOPHORECTOMY 02/27/1995 - 02/27/1996 TEXTILES SALES REPRESENTATIVE SHUNT INSERTION 02/27/2010 - 02/26/2011 COLONOSCOPY BRAIN [...] often do you attend chur ch or spiritism services? Never 12/22/2021 Do you belong to [...] on file Legal Sex Female 1:34 AM ASSET PROTECTION GREETER Gender Identity Not on file Sexual Orientation Not on file Obstetrics History Last Filed Vital Signs Vital Sign Reading Time Taken Comments Blood Pressure 106/74 11/29/2024 1:31 PM CDT Pulse 88 11/29/2024 1:31 PM CDT Temperature 37.4 C (99.4 F) 11/29/2024 1:31 PM CDT Respiratory Rate 18 02/12/2024 2:42 PM ASSET PROTECTION GREETER Oxygen Saturation 95% 11/29/2024 1:31 PM CDT [...] Completed 12/15/2021 Medical Devices Implanted Type Area Lead Cargo Mover Device Identifier Shelf Expiration Date Model / Serial / Lot Shunt Implanted:Qty: 2 Shunt Brain Syn[employer]is [employer] Corning Microvascular 3.5mm Ring Pin Protective Cover Jaw Assembly Latex Free [id number] - [id number] Implanted:Qty: 1 on 2022 by Ricci Shelton MD at [facility] Mandible Synovis Food Runner [employer] [id number] 04/12/2026 [id number] / / [id number] Sanderson Craniomaxillofaci al 2mm Primary Reconstruction Customize Mandible Bebeto Plate Bone [id number] - [id number] Implanted:Qty: 1 on 2022 by Ricci Shelton MD at [facility] Mandible Álvaro Craniomaxillofacial [id number] / / Álvaro Craniomaxillofaci al Leibinger Howard 2 2.3mm 6mm Lock Cross Pin Maxillofacial 50-91439 - [id number] Implanted:Qty: 1 on 2022 by Ricci Shelton MD at [facility] Mandible Álvaro Craniomaxillofacial [id number] / / Álvaro Craniomaxillofaci al Leibinger Howard 2 2.3mm 8mm Lock Cross Pin Maxillofacial [id number] - [id number] Implanted:Qty: 2 on 2022 by Ricci Shelton MD at [facility] Mandible Álvaro Craniomaxillofacial [id number] / / Sanderson Craniomaxillofaci al Leibinger Howard 2 2.3mm 12mm Lock Cross Pin Maxillofacial [id number] - [id number] Implanted:Qty: 3 on 2022 by Ricci Shelton MD at [facility] Mandible Álvaro Craniomaxillofacial [id number] / / Álvaro Craniomaxillofaci al Leibinger Howard 2 2mm 6mm Self Tap Cross Pin Maxillofacial 50 - [id number] Implanted:Qty: 4 on 2022 by Ricci Shelton MD at [facility] Mandible Álvaro Craniomaxillofacial 50 / / Sanderson Craniomaxillofaci al Leibinger Howard 2 2mm 6mm Lock Cross Pin Maxillofacial Screw 50 - [id number] Implanted:Qty: 1 on 2022 by Ricci Shelton MD at [facility] Mandible Álvaro Craniomaxillofacial 50 / / Explanted Type Area Lead Cargo Mover Device Identifier Shelf Expiration Date Model / Serial / Lot Álvaro Craniomaxillofaci al Leibinger Howard 2 2mm 8mm Self Tap Cross Pin Maxillofacial 50 - [id number] Explanted:Qty: 4 on 2022 at [facility] Mandible Álvaro Craniomaxillofacial 50 / / Sanderson Craniomaxillofaci al Leibinger Howard 2 2.3mm 8mm Self Tap Cross Pin Maxillofacial [id number] - [id number] Explanted:Qty: 1 on 2022 at [facility] Mandible Sanderson Craniomaxillofacial [id number] / / [employer] Probe Doppler 17.4cm Standard Cuff Implantable 20mhz Latex Free Sterile Microvascular Anastomoses Carmen [id number] - [id number] Implanted:Qty: 1 on 2022 by Ricci Shelton MD at [facility] Explanted:Qty: 1 on 02/14/2022 by Marie Parr PA Right: Neck [employer] [id number] 10/27/2024 [id number] / / [id number] Procedures Procedure Name Priority Date/Time Associated Diagnosis [...] Read Routine (OP Routine) 03/25/2024 12:46 PM ASSET PROTECTION GREETER Nicotine dependence, cigarettes, uncomplicated POCT HEMOGLOBIN A1C Routine 08/07/2023 3:17 PM CDT Type 2 diabetes mellitus with hyperglycemia, without long-term current use of insulin (HCC) LIPID PANEL STAT 02/15/2022 2:00 PM ASSET PROTECTION GREETER HEPATITIS PANEL, ACUTE Routine 12/15/2021 11:19 PM [...] 10/18/2024 7:12 AM CDT SPLIT 10/16/2024 FROM [id number] us Paola Willard COMMERCIAL ANNOUNCER LAB BLOOD ORDERABLES Final Re sult [facility] [address] [place] [address] * (ABNORMAL) Urinalysis reflex to microscopic (10/17/2024 [...] 10/18/2024 7:12 AM CDT SPLIT 10/16/2024 FROM [id number] Paola Willard COMMERCIAL ANNOUNCER LAB URINE ORDERABLES Final Re sult Performing Organization Address [facility] Co de Phone Number [facility] [address] [place] [address] * Albumin Creatinine Ratio, Urine (10/17/2024 8:23 [...] 10/18/2024 7:12 AM CDT SPLIT 10/16/2024 FROM [id number] us Paola Willard NP LAB URINE ORDERABLES Final Re sult Performing Organization Address [facility]/ZIP Co de Phone Number [facility] [address] [place] [address] * C-Telopeptide, serum (10/16/2024 3:22 PM CDT) C telopeptide 228 pg/mL [facility], Comment: Reference Range: NOT ESTABLISHED Adult [...] loss. For additional information, please refer to http://education.Docphin/faq/JBN002 (This link is being provided for informational/educational purposes only.) 10/16/2024 3:22 PM CDT 10/16/2024 3:23 PM CDT Narrative [facility] - 10/19/2024 3:35 PM CDT PATIENT UNABLE TO VOID; ADVISED TO RETURN FOR COLLECTION. Paola Willard COMMERCIAL ANNOUNCER LAB BLOOD ORDERABLES Final Re sult [facility], [address] [place] [address] * Alkaline phosphatase, bone specific (10/16/2024 3:22 PM CDT) Alk phos, bone 10.5 5.6 - 29.0 mcg/L [facility], 10/16/2024 3:22 PM CDT 10/16/2024 3:23 PM CDT Narrative [facility] - 10/19/2024 3:35 PM CDT PATIENT UNABLE TO VOID; ADVISED TO RETURN FOR COLLECTION. us Paola Willard COMMERCIAL ANNOUNCER LAB BLOOD ORDERABLES Final Re sult [facility], [address] [place] [address] * Vitamin D 25 hydroxy (10/16/2024 3:22 PM CDT) Vitamin D 25-OH 44 30 - 100 ng/mL [facility] Comment: Vitamin D Status 25-OH Vitamin D: Deficiency: <20 ng/mL Insufficiency: 20 - 29 ng/mL Optimal: > or = 30 ng/mL For 25-OH Vitamin D testing on patients on D2-supplementation and patients for whom quantitation of D2 and D3 fractions is required, the QuestAssureD(TM) 25-OH VIT D, (D2,D3), LC/MS/MS is recommended: order code 50937 (patients >2yrs). See Note 1 Note 1 For additional information, please refer to http://education.Fashion Genome Project/faq/WLP927 (This link is being provided for informational/ educational purposes only.) 10/16/2024 3:22 PM CDT 10/16/2024 3:23 PM CDT Narrative [facility] - 10/19/2024 3:35 PM CDT PATIENT UNABLE TO VOID; ADVISED TO RETURN FOR COLLECTION. Paola Willard COMMERCIAL ANNOUNCER LAB BLOOD ORDERABLES Final Re sult Performing Organization Address City/[facility]/ZIP Co de Phone Number [facility] [address] [place] [address] * (ABNORMAL) PTH (10/16/2024 3:22 PM CDT) Parathyroid hormone, intact 119(H) 16 - 77 pg/mL [facility] Comment: Interpretive Guide Intact PTH Calcium [...] BLOOD ORDERABLES Final Re sult [facility]ITA [facility] [address] [facility] [place] [address] * (ABNORMAL) Renal function panel (10/16/2024 3:22 PM CDT) Glucose 94 65 - 99 mg/dL [facility] Comment: Fasting reference interval BUN 23 7 - 25 mg/dL [facility] Creatinine 1.08(H) 0.50 - 1.03 mg/dL [facility] eGFR 59(L) > OR = 60 mL/min/1.7 3m2 [facility] BUN/creat ratio 21 6 - 22 (calc) [facility] Sodium 140 135 - 146 mmol/L [facility] Potassium, pl 4.8 3.5 - 5.3 mmol/L [facility] Chloride 103 98 - 110 mmol/L [facility] CO2 29 20 - 32 mmol/L [facility] Calcium 9.3 8.6 - 10.4 mg/dL [facility] Phosphorus, sr 2.8 2.5 - 4.5 mg/dL [facility] Albumin 4.5 3.6 - 5.1 g/dL [facility] 10/16/2024 3:22 PM CDT 10/16/2024 3:23 PM CDT Narrative [facility] - 10/19/2024 3:35 PM CDT PATIENT UNABLE TO VOID; ADVISED TO RETURN FOR COLLECTION. Paola Willard NP LAB BLOOD ORDERABLES [facility] [address] [place] [address] * Dexa TBS Axial Skeleton Bone Density 1 or more sites (10/16/2024 12:16 PM CDT) Anatomical Region Laterality Modality Wrist, Body N/A Radiographic Yani ging Narrative 10/16/2024 3:40 PM CDT Patient Name: Bev Grossman Date of : 1965 Date of scan: 10/16/2024 Bone mineral density was performed on a HoloSnaptee Discovery Densitometer. Based on machine cross-calibration and [...] by the International Society of Clinical Densitometry. [id number] us Paola Willard NP IMG DXA PROCEDURES Edited Res ult - Final * CT Lung Cancer Screening (03/25/2024 12:46 PM ASSET PROTECTION GREETER) Anatomical Region Laterality Modality Chest N/A Computed Tomogra phy 03/26/2024 9:54 AM ASSET PROTECTION GREETER Narrative 03/26/2024 10:03 AM ASSET PROTECTION GREETER EXAM DESCRIPTION: CT LUNG CANCER SCREENING REASON [...] Almita Miller D.O. PS: PS Report ID: [id number] Reading Location: [id number] Procedure Note Almita Miller, DO - 03/26/2024 [...] Almita Miller D.O. PS: PS Report ID: [id number] Reading Location: [id number] Ethan Leung MD IM CT PROCEDURES Final Result * (ABNORMAL) POCT hemoglobin A1c (08/07/2023 3:17 PM CDT) Hemoglobin A1C, POC 5.9 % Capillary blood 08/07/2023 3 :17 PM CDT Briana Santana MD POINT OF CARE TEST ORDERABLES Fi nal Result * (ABNORMAL) Lipid panel (02/15/2022 2:00 PM ASSET PROTECTION GREETER) Cholesterol 161 30 - 199 mg/dL [facility] Comment: Interpretive Data Ages < or = [...] revised on 2017. Triglycerides 253(H) <=149 mg/dL [facility] Comment: Interpretive Data Ages < or = [...] on 2017. HDL 42 >=40 mg/dL [facility] Comment: Interpretive Data Ages < or = [...] on 2017. LDL, calculated 68 <=129 mg/dL [facility] Comment: Interpretive Data Ages < [...] revised on 2017. Non-HDL Cholesterol 119 mg/dL [facility] Comment: Interpretive Data Ages < [...] last revised on 2017. Chol/HDL ratio 4 [facility] Blood 02/15/2022 2:00 PM ASSET PROTECTION GREETER 02/15/2022 5:52 PM ASSET PROTECTION GREETER Neri Loco MD LAB BLOOD ORDERABLES Fi nal Result [facility] [address] [facility] Department [place] [address] * Hepatitis panel, acute (12/15/2021 11:19 PM CDT) Hep A IgM Nonreactive Nonreactive Comment: Interpretive Data: If Hep A IgM Ab is reported as Equivocal, a new sample should be drawn in two weeks for testing. Current interpretive data was last revised on 19. Hep B core IgM Nonreactive Nonreactive [facility] Comment: Interpretive Data If HepB Core IgM Ab is reported as Equivocal, a new sample should be drawn in two weeks for testing. Current interpretive data was last revised on 19. Hep C Ab Nonreactive Nonreactive [facility] Comment:Antibodies to HCV no t detected. Does NOT exclude the possibility of recent exposure to HCV. HepBsAg Nonreactive Nonreactive [facility] Blood 12/15/2021 11:1 9 PM CDT 12/16/2021 12:30 AM CDT us Orly Fine MD LAB MICROBIOLOGY - GENERAL O RDERABLES Edited Result - Final [facility] Department [place] [address] from Last 3 Months or Most Recently Relevant to Health Maintenance Additional Health Concerns Infection Onset Date Last Indicated MDR gram neg/ESBL 2022 2022 Insurance [facility] Advance Directives For more information, please contact: [phone] * Full Code (Latest Code Status on File) Date Activated Date Inactivated Comments 04/26/2022 9:48 PM 05/03/2022 6:39 PM * Full Code Date Activated Date Inactivated Comments 2022 9:27 PM 02/14/2022 9:56 PM * Full Code Date Activated Date Inactivated Comments 12/13/2021 5:40 PM 12/21/2021 6:14 PM * Full Code Date Activated Date Inactivated Comments 01/22/2020 1:18 PM 01/22/2020 10:15 PM Care Teams Library Associate Relationship Specialty Start Date End Date Jorge Luis Hill MD PCP - General 04/30/18
--- OUTSIDE RECORDS SUMMARY | 2024-12-20 01:02 | XMS_ITS | Clinical Summary ---
Author Organization [facility] Address [facility] [place] [address] Care Team Providers Care Drying Supervisor Name Role Phone Jorge Luis Hill MD Primary Care Provider [phone] Allergies No known active allergies Medications rosuvastatin [...] capsule 2 Active vitamin D2, ergocalciferol , 90992 UNITS capsule 2 Active escitalopram 20 MG [...] Comments Blood Pressure 106/76 05/05/2021 12:15 PM INDUSTRIAL CONTROLLER Pulse 83 05/05/2021 12:15 PM INDUSTRIAL CONTROLLER Temperature 36.1 C (96.9 F) 05/05/2021 11:58 AM INDUSTRIAL CONTROLLER Respiratory Rate 14 05/05/2021 12:15 PM INDUSTRIAL CONTROLLER Oxygen Saturation 94% 05/05/2021 12:15 PM INDUSTRIAL CONTROLLER Inhaled Oxygen Concentration - - Weight 108.4 kg (239 lb) 05/05/2021 10:03 AM INDUSTRIAL CONTROLLER Height 157.5 cm (5' 2) 05/05/2021 10:03 AM INDUSTRIAL CONTROLLER Body Mass Index 43.71 05/05/2021 10:03 AM INDUSTRIAL CONTROLLER Plan of Treatment Health Maintenance Due Date [...] Diagnosis Comments COLONOSCOPY Routine 05/05/2021 11:05 AM INDUSTRIAL CONTROLLER from Last 3 Months or Most Recently Relevant to Health Maintenance Results * Colonoscopy (05/05/2021 11:05 AM INDUSTRIAL CONTROLLER) Narrative Estuardo Wells MD - 05/05/2021 11:05 AM INDUSTRIAL CONTROLLER Estuardo Wlels MD 05/05/2021 12:05 PM ESTUARDO WELLS MD, [...] the left lateral decubitus position, the Olympus [id number] colonoscope was introduced into the rectum and [...] of liver 04-14-2021 but was inpatient at [facility] - Will check to see if she had CT scan while inpatient Thank you for allowing me to care for your patient. She will follow-up with Dr. Hill as needed. Estuardo Wells M.D. Cc: Dr. Nithin Hill Estuardo Wells MD GI PROCEDURE ORDERABLES Fin al Result from Last 3 Months or Most Recently Relevant to Health Maintenance Insurance Care Teams Drying Supervisor Relationship Specialty Start Date End Date Jorge Luis Hill MD [address] [place] [id number] PCP - General FAMILY PRACTICE 11/25/19
--- OUTSIDE RECORDS SUMMARY | 2024-12-20 01:02 | XMS_ITS | Encounter Summary ---
Author Organization [facility] Address [address] [place] [address] Phone Care Team Providers Care Shipping And Receiving Clerk Name Role Phone Jorge Luis Hill MD Primary Care Provider [phone] Encounter Details Date Type Department Care Team (Late st Contact Info) Description 05/07/2022 Documentation [facility] - [facility] Medicine ENT [address] [facility] [address]th [place] [address] [place] [address] Amadeo Bazzi MD [address] [place] [address] Social History Tobacco Use Types Packs/Day Years [...] week 12/22/2021 How often do you attend [facility] or shinto services? Never 12/22/2021 Do you [...] place to sleep or slept in a senior living (including now)? 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
--- OUTSIDE RECORDS SUMMARY | 2024-12-20 01:02 | XMS_ITS | Encounter Summary ---
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
--- OUTSIDE RECORDS SUMMARY | 2024-12-20 01:02 | XMS_ITS | Clinical Summary ---
Author Organization [facility] Address [address] [place] [address] Care Team Providers Care Machinery Cleaner Name Role Phone Jorge Luis Hill MD Primary Care Provider [phone] Medications PROAIR HFA 90 mcg/actuation inhaler INHALE [...] mg tablet Active naloxone (Narcan) 4 mg/spray [place], Non-Aerosol Narcan 4 mg/actuation nasal spray 03/18/19 [...] Insurance [employer] Care Teams Machinery Cleaner Relationship Specialty Start Date End Date Jorge Luis Hill MD PCP - General Emergency Medicine 05/30/18
[2024-12-20] MEDS: LIDOCAINE 5% PATCH 2 PATCH TRANSDERM (02:51)
[2024-12-20] MEDS: dexAMETHasone SOD PHOS INJ 10 MG/ML 1 ML VIAL IM (02:52)
[2024-12-20] MEDS: HYDROmorphone HCL INJ (*CRX) 1 MG/ML SYR IM (02:52)
--- NOTE | 2024-12-20 03:10 | ED.BACK ---
HPI - Back Pain/Injury General Chief Complaint: Back Pain/Injury Stated Complaint: back pain Time Seen by Provider: 12/20/24 00:44 History of Present Illness HPI Narrative: 59-year-old female with chronic back pain. She sees Pain Management and has undergone multiple felt therapies including opiate and non opiate analgesia, behavior on activity modification, physical therapy, oral and topical agents as well as recent radiotherapy ablation done 12/03/2024. Patient denies any new or traumatic injuries but states that she is having exacerbation of her back pain. When asked which she took at home she states she only takes Tylenol and nothing else. Asked about any opiate or stronger pain medicines at home and she states that no one prescribe this for and she has to come to the ED for this. Denies any symptoms other than pain. No fever, chills, urination issues, loss of continence, difficulty ambulating, neurological complaints or sensory or motor loss. Was otherwise in her normal state of health. Related Data Home Medications ?Medication ?Instructions ?Recorded ?Confirmed ?Last Taken ?Type montelukast 10 mg tablet 10 mg PO HS 12/09/19 11/29/24 10/29/24 History (Singulair) metformin 500 mg tablet 500 mg PO DAILY 06/07/21 11/29/24 10/29/24 History clonidine HCl 0.1 mg tablet 0.1 mg PO HS 09/25/21 11/29/24 10/28/24 History furosemide 40 mg tablet 40 mg PO DAILY 09/25/21 11/29/24 10/29/24 History losartan 50 mg tablet 50 mg PO DAILY 09/25/21 11/29/24 10/29/24 History albuterol sulfate 90 mcg/actuation 2 puff inhalation QID PRN 12/10/21 11/29/24 10/29/24 History aerosol inhaler (Ventolin HFA) Shortness Of Breath cholecalciferol (vitamin D3) 25 25 mcg PO DAILY 12/10/21 11/29/24 10/29/24 History mcg (1,000 unit) tablet (Vitamin D3) ropinirole 0.25 mg tablet 0.25 mg PO HS 12/10/21 11/29/24 10/28/24 History rosuvastatin 20 mg tablet 20 mg PO DAILY 12/10/21 11/29/24 10/29/24 History diltiazem HCl 360 mg 360 mg PO DAILY 07/07/23 11/29/24 10/29/24 History capsule,extended release 24 hr loratadine 10 mg tablet 10 mg PO DAILY 07/07/23 11/29/24 10/29/24 History sitagliptin phosphate 50 mg tablet 50 mg PO DAILY 07/07/23 11/29/24 10/29/24 History (Januvia) aspirin 81 mg capsule 81 mg PO DAILY 03/18/24 11/29/24 10/29/24 History budesonide-formoterol HFA 160 2 puff inhalation Q12H 07/23/24 11/29/24 10/29/24 History mcg-4.5 mcg/actuation aerosol inhaler (Symbicort) cyanocobalamin (vitamin B-12) 1 ml PO DAILY 07/23/24 11/29/24 10/29/24 History 1,000 mcg/mL oral drops (Vitamin B-12) fenofibrate micronized 134 mg 134 mg PO DAILY 07/23/24 11/29/24 10/29/24 History capsule tiotropium bromide 2.5 2 puff inhalation BID 07/23/24 11/29/24 10/29/24 History mcg/actuation mist for inhalation (Spiriva Respimat) calcium carbonate (Calcium 600) 600 mg PO DAILY 10/29/24 11/29/24 Unknown History ferrous sulfate 325 mg (65 mg 325 mg PO DAILY 10/29/24 11/29/24 Unknown History iron) tablet (iron) Allergies Allergy/AdvReac Type Severity Reaction Status Date / Time No Known Allergies Allergy Verified 12/20/24 00:29 Review of Systems Review of Systems: As reviewed above in HPI [facility] Past Medical History Medical History Diabetes CVA (cerebral vascular accident) Depression Hyperlipemia Hypertension COPD (chronic obstructive pulmonary disease) Anxiety Arthritis Gastritis Asthma ELIOT (obstructive sleep apnea) Lumbar radiculopathy Folliculitis Surgical History Surgical History History of delivery S/P MDM SR shunt H/O removal of cyst brain, unable to remove due to cyst being wrapped around spinal cord. H/O: hysterectomy H/O cardiac catheterization Family History Family History Father Diabetes mellitus Hypertension Mother Hypertension Other Arthritis Asthma Cancer Cerebrovascular accident Depression Family history of arthritis Family history of heart disease in male family member before age 55 Family history of lung disease High cholesterol Social History Social History Smoking packs per day: 1.5 Smoking cigarettes per day: 30.0 Years smoked: 48 Smoking pack-years: 72.00 Smoking status: Current some day smoker Tobacco type: cigarettes Second hand tobacco smoke exposure: Yes Smoking end date: 01/28/24 Additional smoking assessment comments: QUIT 2023 Alcohol intake: former Substance use: never Substance use type: does not use Do You Feel Safe in your Home?: Yes Lack of Transportation: YES Lack of Food: Sometimes True Current Housing: I Do Not Have Housing Concerned About Future Housing: No Difficulty Paying Gas/Electric Bills: No Difficulty Paying for Meds: No Currently Unemployed: No Education: Associate Degree Difficulty w/ Childcare or Family Care: No Living arrangements: with family Occupation/Education: unemployed Gender identity (if verbalized by the patient): Female Sexual Orientation (if Verbalized by the Patient): Straight or Heterosexual Spiritual care concerns: No Exam Narrative: GENERAL: [Well-appearing, well-nourished, and in no acute distress.] HEAD: [Normocephalic, atraumatic.] EYES: [PERRLA and EOMI.] ENT: Nares clear, no rhinorrhea or epistaxis. Mucous membranes moist. NECK: Supple. CHEST: [Clear to auscultation. No respiratory distress.] HEART: [Regular rate and rhythm]. No murmur heard. [Normal peripheral pulses.] ABDOMEN: [Soft, nondistended], [nontender], [No rigidity or guarding] EXTREMITIES: Normal range of motion. No midline spinal tenderness over the cervical thoracic or lumbar spine. No deformity. Tenderness over the bilateral paraspinal muscles in the low lumbar region around the iliac crest. No step-offs deformities or any swelling. No skin discoloration or rash noted. Full mobility of both legs and ambulatory. EHL and FHL 5/5. 2+ symmetric pulses. SKIN: Warm, dry, no rash. Bugs noted in patient's bed and on her clothes. NEURO: [No focal deficits]. Alert and oriented [x3.] PSYCH: [Normal mood and affect.] Course Vital Signs Vital signs: Vital Signs Temperature 37.1 C 12/20/24 00:27 Pulse Rate 98 12/20/24 00:27 Respiratory Rate 20 12/20/24 00:27 Blood Pressure 120/69 12/20/24 00:27 Pulse Oximetry 99 12/20/24 00:27 Oxygen Delivery Room Air 12/20/24 00:27 Temperature 36.8 C 12/20/24 00:43 Pulse Rate 94 12/20/24 00:43 Respiratory Rate 23 H 12/20/24 00:43 Blood Pressure 107/85 12/20/24 03:31 Pulse Oximetry 93 12/20/24 03:45 Oxygen Delivery Room Air 12/20/24 00:27 MDM - Back Pain/Injury MDM Narrative Medical decision making narrative: 59-year-old female with chronic back pain. She sees Pain Management and has undergone multiple felt therapies including opiate and non opiate analgesia, behavior on activity modification, physical therapy, oral and topical agents as well as recent radiotherapy ablation done 12/03/2024. Patient denies any new or traumatic injuries but states that she is having exacerbation of her back pain. When asked which she took at home she states she only takes Tylenol and nothing else. Asked about any opiate or stronger pain medicines at home and she states that no one prescribe this for and she has to come to the ED for this. Denies any symptoms other than pain. No fever, chills, urination issues, loss of continence, difficulty ambulating, neurological complaints or sensory or motor loss. Was otherwise in her normal state of health. Normal range of motion. No midline spinal tenderness over the cervical thoracic or lumbar spine. No deformity. Tenderness over the bilateral paraspinal muscles in the low lumbar region around the iliac crest. No step-offs deformities or any swelling. No skin discoloration or rash noted. Full mobility of both legs and ambulatory. EHL and FHL 5/5. 2+ symmetric pulses. Hemodynamically stable with no neurological red flags concerning for any occult spinal process. Patient likely has exacerbation of her lumbago and a CT scan was ordered to rule out any new or concerning process at this time and she was given Decadron and Dilaudid for analgesia intramuscular injection. CT scan shows no acute fracture. Degenerative disc disease and disc bulging seen but only mild. No spondylolisthesis. No spondylolysis. Pain improved after treatment. 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 Medical Records Attestation: I reviewed the patient's medical records. Imaging Data Attestation: I personally reviewed and interpreted this imaging study as follows: My impression: No acute fracture. Disc bulging mildly, degenerative disc disease. Discharge Plan Discharge Clinical Impression: Acute exacerbation of chronic low back pain Patient Disposition: Home Condition: Stable Instructions: Antibiotic Form, Acute Low Back Pain (ED) Additional Instructions: CT scan shows no fracture. Mild disc bulging, no acute evidence of injury or acute process. Follow-up with your pain management for further recommendations on chronic pain control. Return to the ER if you have increased pain in your back, you develop lower extremity weakness/numbness/paralysis, you have numbness or tingling in your private parts, or you are unable to control your ability to urinate/stool. Patient Language: Tunisian Prescriptions: No Action ropinirole 0.25 mg Tablet 0.25 mg PO HS albuterol sulfate [Ventolin HFA] 90 mcg/actuation Hfa Aerosol Inhaler 2 puff INHALATION QID PRN (Reason: Shortness Of Breath) rosuvastatin 20 mg Tablet 20 mg PO DAILY cholecalciferol (vitamin D3) [Vitamin D3] 25 mcg (1,000 unit) Tablet 25 mcg PO DAILY montelukast [Singulair] 10 mg tablet 10 mg PO HS metformin 500 mg tablet 500 mg PO DAILY losartan 50 mg tablet 50 mg PO DAILY clonidine HCl 0.1 mg tablet 0.1 mg PO HS furosemide 40 mg tablet 40 mg PO DAILY diltiazem HCl 360 mg capsule,extended release 24hr 360 mg PO DAILY loratadine 10 mg tablet 10 mg PO DAILY Januvia 50 mg tablet 50 mg PO DAILY acetaminophen 500 mg Tablet 1,000 mg PO Q6H PRN (Reason: Pain 1-3 or Fever) Qty: 30 0RF aspirin 81 mg capsule 81 mg PO DAILY Linzess 290 mcg capsule See Rx Instructions .ROUTE .COMPLEX Qty: 30 3RF Dose Instruction: TAKE 1 CAPSULE BY MOUTH DAILY Patient Comments: PATIENT STATES SHE TAKES PRN Rx Instructions: TAKE 1 CAPSULE BY MOUTH DAILY pantoprazole 40 mg tablet,delayed release (DR/EC) See Rx Instructions .ROUTE .COMPLEX Qty: 60 3RF Dose Instruction: TAKE ONE (1) TABLET BY MOUTH TWICE DAILY Rx Instructions: TAKE ONE (1) TABLET BY MOUTH TWICE DAILY metoclopramide HCl 10 mg tablet See Rx Instructions .ROUTE .COMPLEX Qty: 90 3RF Dose Instruction: TAKE 1 TABLET BY MOUTH THREE TIMES DAILY Rx Instructions: TAKE 1 TABLET BY MOUTH THREE TIMES DAILY amitriptyline 50 mg tablet See Rx Instructions .ROUTE .COMPLEX Qty: 30 3RF Dose Instruction: TAKE 1 TABLET BY MOUTH AT BEDTIME Rx Instructions: TAKE 1 TABLET BY MOUTH AT BEDTIME budesonide-formoterol [Symbicort] 160-4.5 mcg/actuation HFA aerosol inhaler 2 puff INHALATION Q12H Spiriva Respimat 2.5 mcg/actuation mist 2 puff INHALATION BID Vitamin B-12 1,000 mcg/mL drops 1 ml PO DAILY fenofibrate micronized 134 mg capsule 134 mg PO DAILY Patient Comments: not d/c but hasn't taken in one month d/t lack of supply calcium carbonate [Calcium 600] 600 mg calcium (1,500 mg) tablet 600 mg PO DAILY ferrous sulfate [iron] 325 mg (65 mg iron) tablet 325 mg PO DAILY Patient Comments: BID Follow-up/Referrals: Jorge Luis Hill MD [Primary Care Provider, [facility]] Time of Disposition: 05:14
== END 2024-12-20 05:35 | disposition home or self-care (01) ==
PROVIDERS: Emergency Provider Student in an Organized Health Care Education/Training Program; PCP Emergency Medicine
DX: M54.50 Low back pain, unspecified (principal); G89.29 Other chronic pain; I10 Essential (primary) hypertension; E11.9 Type 2 diabetes mellitus without complications; E78.5 Hyperlipidemia, unspecified; J44.9 Chronic obstructive pulmonary disease, unspecified; G47.33 Obstructive sleep apnea (adult) (pediatric); M19.90 Unspecified osteoarthritis, unspecified site; F41.9 Anxiety disorder, unspecified; F32.A Depression, unspecified; Z98.2 Presence of cerebrospinal fluid drainage device; Z90.710 Acquired absence of both cervix and uterus; Z87.891 Personal history of nicotine dependence; Z79.899 Other long term (current) drug therapy; Z79.84 Long term (current) use of oral hypoglycemic drugs; Z79.82 Long term (current) use of aspirin; M47.816 Spondylosis without myelopathy or radiculopathy, lumbar region
CPT/HCPCS: 72131; 96372; 99284; A9270; J1100; J1171

== ENCOUNTER 2025-01-15 00:17 | Emergency (ER) | payer OTHER, SELFPAY ==
[2025-01-15] VITALS (7 sets, daily range): BP systolic 89–110; BP diastolic 61–76; PULSE 81–85; RESP 13–18; O2SAT 90–98
--- NOTE | ~2025-01-15 | XR_ITS ---
Examination: XR chest 1V portable Clinical History: SOB, HX OF ASTHMA, COPD AND CHF Comparison: 07/24/2023 Technique: Portable AP Findings: Heart size normal. Lungs clear. No acute bony abnormality. Left-sided BONDING MOLDER shunt tubing. Right axillary surgical clips. IMPRESSION: 1. No acute cardiopulmonary findings given portable technique. Reviewed, dictated and finalized at location R. E ANALYSIS COORDINATOR
--- NOTE | ~2025-01-15 | CT_ITS ---
EXAMINATION: CT abdomen pelvis w con DATE: 01/15/2025 02:14 INDICATION: Abdominal pain. TECHNIQUE: Computed tomography (CT) of the abdomen and pelvis was performed with 100 mL Omnipaque 350 intravenous contrast. Automated exposure control and iterative reconstruction technique were employed. The dose-length product was 1141.06 mGy-cm. COMPARISON: CT abdomen and pelvis 11/05/2021, 04/20/2015, 01/02/20 FINDINGS: The visualized portions of lung bases demonstrate mild atelectasis. No pleural effusion. The heart size is normal. There are coronary artery calcifications. No pericardial effusion. There is a 4 mm cyst in the liver. The gallbladder and spleen are normal. There is a 2.3 cm cystic lesion in the pancreas with communication with the main pancreatic duct, increased from 0.9 cm on 04/20/15 and 1.8 cm on 11/05/21. The pancreatic duct is normal in caliber. The adrenal glands are normal. There is cortical thinning of the kidneys. There are cysts in the kidneys measuring up to 2.0 cm on the left. The appendix is normal. There are no dilated loops of bowel. There is a ventriculoperitoneal shunt. There are no pathologically enlarged lymph nodes. There is no free intraperitoneal fluid. There are bilateral inguinal hernias containing fat. There is osteonecrosis in the femoral heads. There is severe lower lumbar spondylosis. There is a chronic compression fracture of L1. IMPRESSION: 1. 2.3 cm cystic lesion in the body of the pancreas, increased from 1.8 cm on 11/05/2021. The differential diagnosis includes pseudocyst, intraductal papillary mucinous neoplasm (IPMN), mucinous cystic neoplasm (MCN), serous cystadenoma, and neuroendocrine tumor. 2. Bilateral inguinal hernias containing fat. Reviewed, dictated and finalized at location E. KFAST ATTENDANT IMPRESSION: 1. 2.3 cm cystic lesion in the body of the pancreas, increased from 1.8 cm on . The differential diagnosis includes pseudocyst, intraductal papillary mucinous neoplasm (IPMN), mucinous cystic neoplasm (MCN), serous cystadenoma, a nd neuroendocrine tumor. 2. Bilateral inguinal hernias containing fat.
[2025-01-15 01:42] LABS: Hematocrit 37.8 % (37.0-47.0); Hemoglobin 12.5 g/dL (12.0-15.0); Immature Granulocyte Percent A 0.8 % (0-0.5); Lymphocytes Absolute Auto 2.54 K/mm3 (0.9-3.2); Mean Corpuscular HGB Conc 33.1 g/dl (32-36); Mean Corpuscular Hemoglobin 32.0 pg (26-34); Mean Corpuscular Volume 96.7 fl (80-100); Nucleated Red Blood Cells Absolute Auto 0.000 K/mm3 (0.0-0.012); Nucleated Red Blood Cells Perc 0.0 % (0.0-0.2); Platelet Count Result 242 k/mm3 (150-375); Red Blood Count 3.91 M/mm3 (4.2-5.4); White Blood Count 12.5 K/mm3 (4.5-10.0)
[2025-01-15 01:51] LABS: Alanine Aminotransferase 17 U/L (6-35); Albumin Level 4.1 g/dL (3.5-5.1); Alkaline Phosphatase 91 U/L (38-126); Anion Gap 7 mmol/L (4-12); Aspartate Amino Transferase 22 U/L (14-36); Bilirubin,Total 0.4 mg/dL (0.2-1.3); Blood Urea Nitrogen 29 mg/dL (7-17); Calcium 9.2 mg/dL (8.4-10.2); Carbon Dioxide 31 mmol/L (22-30); Chloride 96 mmol/L (98-107); Estimated CRCL calculation 37 ml/min; Estimated Glomerular Filt Rate 36; Glucose 82 mg/dL (65-110); Lipase 152 U/L (23-300); Potassium 4.0 mmol/L (3.4-5.0); Sodium 134 mmol/L (137-145); Total Protein 7.0 g/dL (6.3-8.2)
[2025-01-15 02:03] LABS: Troponin I < 0.012 ng/mL (0.000-0.034)
[2025-01-15 02:27] LABS: Influenza A QL RT-PCR Negative (Negative); Influenza B QL RT-PCR Negative (Negative); RSV RNA, RT-PCR Negative (Negative); SARS-CoV-2 RNA PCR Negative (Negative)
[2025-01-15] MEDS: ONDANSETRON INJ 4 MG/2 ML VIAL IV PUSH (02:54)
--- NOTE | 2025-01-15 02:57 | ED.GENADULT ---
HPI - General Adult General Chief complaint: Shortness of Breath/Dyspnea Stated complaint: Shortness of breath and left sided abdominal pain Time Seen by Provider: 01/15/25 00:33 History of Present Illness HPI narrative: Patient is a 59-year-old female who presents emergency department with chief shortness of breath left-sided states shortness of breath started after abdomen started patient states that is on the left side of her abdomen reports her abdomen is become significantly distended patient reports that she has had no vomiting denies diarrhea patient does report that she has had prior surgeries of her abdomen Related Data Home Medications ?Medication ?Instructions ?Recorded ?Confirmed ?Last Taken ?Type montelukast 10 mg tablet 10 mg PO HS 12/09/19 12/24/24 10/29/24 History (Singulair) metformin 500 mg tablet 500 mg PO DAILY 06/07/21 12/24/24 10/29/24 History clonidine HCl 0.1 mg tablet 0.1 mg PO HS 09/25/21 12/24/24 10/28/24 History furosemide 40 mg tablet 40 mg PO DAILY 09/25/21 12/24/24 10/29/24 History losartan 50 mg tablet 50 mg PO DAILY 09/25/21 12/24/24 10/29/24 History albuterol sulfate 90 mcg/actuation 2 puff inhalation QID PRN 12/10/21 12/24/24 10/29/24 History aerosol inhaler (Ventolin HFA) Shortness Of Breath cholecalciferol (vitamin D3) 25 25 mcg PO DAILY 12/10/21 12/24/24 10/29/24 History mcg (1,000 unit) tablet (Vitamin D3) ropinirole 0.25 mg tablet 0.25 mg PO HS 12/10/21 12/24/24 10/28/24 History rosuvastatin 20 mg tablet 20 mg PO DAILY 12/10/21 12/24/24 10/29/24 History diltiazem HCl 360 mg 360 mg PO DAILY 07/07/23 12/24/24 10/29/24 History capsule,extended release 24 hr loratadine 10 mg tablet 10 mg PO DAILY 07/07/23 12/24/24 10/29/24 History sitagliptin phosphate 50 mg tablet 50 mg PO DAILY 07/07/23 12/24/24 10/29/24 History (Januvia) aspirin 81 mg capsule 81 mg PO DAILY 03/18/24 12/24/24 10/29/24 History budesonide-formoterol HFA 160 2 puff inhalation Q12H 07/23/24 12/24/24 10/29/24 History mcg-4.5 mcg/actuation aerosol inhaler (Symbicort) cyanocobalamin (vitamin B-12) 1 ml PO DAILY 07/23/24 12/24/24 10/29/24 History 1,000 mcg/mL oral drops (Vitamin B-12) fenofibrate micronized 134 mg 134 mg PO DAILY 07/23/24 12/24/24 10/29/24 History capsule tiotropium bromide 2.5 2 puff inhalation BID 07/23/24 12/24/24 10/29/24 History mcg/actuation mist for inhalation (Spiriva Respimat) calcium carbonate (Calcium 600) 600 mg PO DAILY 10/29/24 12/24/24 Unknown History ferrous sulfate 325 mg (65 mg 325 mg PO DAILY 10/29/24 12/24/24 Unknown History iron) tablet (iron) Allergies Allergy/AdvReac Type Severity Reaction Status Date / Time No Known Allergies Allergy Verified 01/15/25 00:18 Review of Systems Review of Systems: A 10 system review of systems was completed on the patient and is negative except for what is stated in the HPI. Nursing and ancillary documentation was reviewed. [facility] Past Medical History Medical History Sacroiliitis Diabetes CVA (cerebral vascular accident) Depression Hyperlipemia Hypertension COPD (chronic obstructive pulmonary disease) Anxiety Arthritis Gastritis Asthma ELIOT (obstructive sleep apnea) Lumbar radiculopathy Folliculitis Surgical History Surgical History History of delivery S/P CAB DRIVER shunt H/O removal of cyst brain, unable to remove due to cyst being wrapped around spinal cord. H/O: hysterectomy H/O cardiac catheterization Family History Family History Father Diabetes mellitus Hypertension Mother Hypertension Other Arthritis Asthma Cancer Cerebrovascular accident Depression Family history of arthritis Family history of heart disease in male family member before age 55 Family history of lung disease High cholesterol Social History Social History Smoking packs per day: 1.5 Smoking cigarettes per day: 30.0 Years smoked: 48 Smoking pack-years: 72.00 Smoking status: Current some day smoker Tobacco type: cigarettes Second hand tobacco smoke exposure: Yes Smoking end date: 01/28/24 Additional smoking assessment comments: QUIT 2023 Alcohol intake: former Substance use: never Substance use type: does not use Do You Feel Safe in your Home?: Yes Lack of Transportation: YES Lack of Food: Sometimes True Current Housing: I Do Not Have Housing Concerned About Future Housing: No Difficulty Paying Gas/Electric Bills: No Difficulty Paying for Meds: No Currently Unemployed: No Education: Associate Degree Difficulty w/ Childcare or Family Care: No Living arrangements: with family Occupation/Education: unemployed Gender identity (if verbalized by the patient): Female Sexual Orientation (if Verbalized by the Patient): Straight or Heterosexual Spiritual care concerns: No Exam Narrative: GENERAL: Well-appearing, well-nourished, and in no acute distress. HEAD: Normocephalic, atraumatic. EYES: PERRLA and EOMI. ENT: Nares clear, no rhinorrhea or epistaxis. Mucous membranes moist. NECK: Supple. CHEST: Clear to auscultation. No respiratory distress. HEART: Regular rate and rhythm. No murmur heard. Normal peripheral pulses. ABDOMEN: Soft, diffusely tender to palpation distended, normal active bowel sounds. EXTREMITIES: Normal range of motion. No edema. SKIN: Warm, dry, no rash. NEURO: No focal deficits. Alert and oriented x3. PSYCH: Normal mood and affect. Course Vital Signs Vital signs: Vital Signs Pulse Oximetry 98 01/15/25 01:32 Oxygen Delivery Room Air 01/15/25 01:32 Pulse Rate 81 01/15/25 04:15 Respiratory Rate 13 01/15/25 04:15 Blood Pressure 97/68 L 01/15/25 04:15 Pulse Oximetry 90 01/15/25 04:15 Oxygen Delivery Room Air 01/15/25 01:32 Medical Decision Making MDM Narrative Medical decision making narrative: Differential diagnosis includes intra-abdominal infection, diverticulitis, colitis, bowel obstruction, constipation, Laboratory studies were obtained on the patient which showed CBC with white count 12.5 hemoglobin was normal at 12.5 electrolytes showed a BUN 29 creatinine 1.49 patient has history of baseline renal insufficiency lactic acid was 1.0 liver enzymes are normal lactic acid was 1.0 urinalysis showed trace ketones and reports glucose initial troponin was negative CT scan showed no evidence of bowel obstruction but did show evidence of significant constipation patient will be started on magnesium citrate and will be given a prescription for MiraLax Vital Signs Vital Signs: Vital Signs Pulse Oximetry 98 01/15/25 01:32 Oxygen Delivery Room Air 01/15/25 01:32 Pulse Rate 81 01/15/25 04:15 Respiratory Rate 13 01/15/25 04:15 Blood Pressure 97/68 L 01/15/25 04:15 Pulse Oximetry 90 01/15/25 04:15 Oxygen Delivery Room Air 01/15/25 01:32 Lab Data 01/15/25 01:33 01/15/25 01:33 Labs: Lab Results 01/15/25 01/15/25 01/15/25 Range/Units 01:33 01:46 04:13 WBC 12.5 H (4.5-10.0) K/mm3 RBC 3.91 L (4.2-5.4) M/mm3 Hgb 12.5 (12.0-15.0) g/dL Hct 37.8 (37.0-47.0) % MCV 96.7 (80-100) fl MCH 32.0 (26-34) pg MCHC 33.1 (32-36) g/dl RDW 15.1 H (11.5-14.5) % Plt Count 242 (150-375) k/mm3 MPV 10.3 (7.4-10.4) fl Immature Gran % (Auto) 0.8 H (0-0.5) % Neut % (Auto) 69.4 (45.5-73.1) % Lymph % (Auto) 20.3 (18.3-44.2) % [place] % (Auto) 7.5 (2.6-8.5) % Eos % (Auto) 1.5 (0-4.4) % Baso % (Auto) 0.5 (0.2-1.2) % Lymph # (Auto) 2.54 (0.9-3.2) K/mm3 [place] # (Auto) 0.9 H (0.1-0.6) K/mm3 Eos # (Auto) 0.2 (0-0.3) K/mm3 Baso # (Auto) 0.1 (0.0-0.1) K/mm3 Abs Immat Gran (auto) 0.10 H (0.00-0.031) K/mm3 Absolute Neuts (auto) 8.7 H (1.3-6.7) K/mm3 Absolute Nucleated RBC 0.000 (0.0-0.012) K/mm3 Nucleated RBC % 0.0 (0.0-0.2) % Sodium 134 L (137-145) mmol/L Potassium 4.0 (3.4-5.0) mmol/L Chloride 96 L (98-107) mmol/L Carbon Dioxide 31 H (22-30) mmol/L Anion Gap 7 (4-12) mmol/L BUN 29 H (7-17) mg/dL Creatinine 1.49 H (0.7-1.0) mg/dL Estim Creat Clear Calc 37 ml/min Estimated GFR 36 L (59 - ) Glucose 82 (65-110) mg/dL Lactic Acid 1.0 (0.7-2.0) mmol/L Calcium 9.2 (8.4-10.2) mg/dL Total Bilirubin 0.4 (0.2-1.3) mg/dL AST 22 (14-36) U/L ALT 17 (6-35) U/L Alkaline Phosphatase 91 (38-126) U/L Troponin I < 0.012 (0.000-0.034) ng/mL Total Protein 7.0 (6.3-8.2) g/dL Albumin 4.1 (3.5-5.1) g/dL Lipase 152 (23-300) U/L Urine Color Yellow (Yellow) Urine Appearance Clear (Clear) Urine pH 6.5 (5.0-9.0) Ur Specific [place] > 1.045 H (1.001-1.035) Urine Protein Trace (Negative) mg/dL Urine Glucose (UA) 3+ H (Negative) mg/dL Urine Ketones Trace H (Negative) mg/dL Ur Blood (Man) Negative (Negative) Urine Nitrate Negative (Negative) Urine Bilirubin Negative (Negative) Urine Urobilinogen 1.0 (<2.0) mg/dL Add Ur Microanalysis Reviewed Leukocyte Esterase Rfl Negative (Negative) DONA/UL Urine RBC 0-2 (0-2) /hpf Urine WBC 0-5 (0-3) /hpf Ur Squamous Epith Cells Occasional (Few) /hpf Urine Bacteria None seen /hpf Urine Casts 6-10 Hyaline Casts Present (None) /lpf POC Urine HCG, Qual (Negative) Influenza A (RT-PCR) Negative (Negative) Influenza B (RT-PCR) Negative (Negative) RSV (RT-PCR) Negative (Negative) SARS-CoV-2 RNA (RT-PCR) Negative (Negative) 01/15/25 01/15/25 Range/Units 04:14 04:40 WBC (4.5-10.0) K/mm3 RBC (4.2-5.4) M/mm3 Hgb (12.0-15.0) g/dL Hct (37.0-47.0) % MCV (80-100) fl MCH (26-34) pg MCHC (32-36) g/dl RDW (11.5-14.5) % Plt Count (150-375) k/mm3 MPV (7.4-10.4) fl Immature Gran % (Auto) (0-0.5) % Neut % (Auto) (45.5-73.1) % Lymph % (Auto) (18.3-44.2) % [place] % (Auto) (2.6-8.5) % Eos % (Auto) (0-4.4) % Baso % (Auto) (0.2-1.2) % Lymph # (Auto) (0.9-3.2) K/mm3 [place] # (Auto) (0.1-0.6) K/mm3 Eos # (Auto) (0-0.3) K/mm3 Baso # (Auto) (0.0-0.1) K/mm3 Abs Immat Gran (auto) (0.00-0.031) K/mm3 Absolute Neuts (auto) (1.3-6.7) K/mm3 Absolute Nucleated RBC (0.0-0.012) K/mm3 Nucleated RBC % (0.0-0.2) % Sodium (137-145) mmol/L Potassium (3.4-5.0) mmol/L Chloride (98-107) mmol/L Carbon Dioxide (22-30) mmol/L Anion Gap (4-12) mmol/L BUN (7-17) mg/dL Creatinine (0.7-1.0) mg/dL Estim Creat Clear Calc ml/min Estimated GFR (59 - ) Glucose (65-110) mg/dL Lactic Acid (0.7-2.0) mmol/L Calcium (8.4-10.2) mg/dL Total Bilirubin (0.2-1.3) mg/dL AST (14-36) U/L ALT (6-35) U/L Alkaline Phosphatase (38-126) U/L Troponin I Pending (0.000-0.034) ng/mL Total Protein (6.3-8.2) g/dL Albumin (3.5-5.1) g/dL Lipase (23-300) U/L Urine Color (Yellow) Urine Appearance (Clear) Urine pH (5.0-9.0) Ur Specific [place] (1.001-1.035) Urine Protein (Negative) mg/dL Urine Glucose (UA) (Negative) mg/dL Urine Ketones (Negative) mg/dL Ur Blood (Man) (Negative) Urine Nitrate (Negative) Urine Bilirubin (Negative) Urine Urobilinogen (<2.0) mg/dL Add Ur Microanalysis Leukocyte Esterase Rfl (Negative) DONA/UL Urine RBC (0-2) /hpf Urine WBC (0-3) /hpf Ur Squamous Epith Cells (Few) /hpf Urine Bacteria /hpf Urine Casts Hyaline Casts (None) /lpf POC Urine HCG, Qual Negative (Negative) Influenza A (RT-PCR) (Negative) Influenza B (RT-PCR) (Negative) RSV (RT-PCR) (Negative) SARS-CoV-2 RNA (RT-PCR) (Negative) Discharge Plan Discharge Clinical Impression: Abdominal pain, Constipation Patient Disposition: Home Condition: Stable Instructions: Antibiotic Form, Constipation (ED), Abdominal Pain (ED) Patient Language: Kazakh Prescriptions: New polyethylene glycol 3350 [Miralax] 17 gram powder in packet 17 g PO DAILY 5 Days Qty: 14 0RF Rx Instructions: Take daily until you have a bowel movement No Action ropinirole 0.25 mg Tablet 0.25 mg PO HS albuterol sulfate [Ventolin HFA] 90 mcg/actuation Hfa Aerosol Inhaler 2 puff INHALATION QID PRN (Reason: Shortness Of Breath) rosuvastatin 20 mg Tablet 20 mg PO DAILY cholecalciferol (vitamin D3) [Vitamin D3] 25 mcg (1,000 unit) Tablet 25 mcg PO DAILY montelukast [Singulair] 10 mg tablet 10 mg PO HS metformin 500 mg tablet 500 mg PO DAILY losartan 50 mg tablet 50 mg PO DAILY clonidine HCl 0.1 mg tablet 0.1 mg PO HS furosemide 40 mg tablet 40 mg PO DAILY diltiazem HCl 360 mg capsule,extended release 24hr 360 mg PO DAILY loratadine 10 mg tablet 10 mg PO DAILY Januvia 50 mg tablet 50 mg PO DAILY acetaminophen 500 mg Tablet 1,000 mg PO Q6H PRN (Reason: Pain 1-3 or Fever) Qty: 30 0RF aspirin 81 mg capsule 81 mg PO DAILY Linzess 290 mcg capsule See Rx Instructions .ROUTE .COMPLEX Qty: 30 3RF Dose Instruction: TAKE 1 CAPSULE BY MOUTH DAILY Patient Comments: PATIENT STATES SHE TAKES PRN Rx Instructions: TAKE 1 CAPSULE BY MOUTH DAILY pantoprazole 40 mg tablet,delayed release (DR/EC) See Rx Instructions .ROUTE .COMPLEX Qty: 60 3RF Dose Instruction: TAKE ONE (1) TABLET BY MOUTH TWICE DAILY Rx Instructions: TAKE ONE (1) TABLET BY MOUTH TWICE DAILY metoclopramide HCl 10 mg tablet See Rx Instructions .ROUTE .COMPLEX Qty: 90 3RF Dose Instruction: TAKE 1 TABLET BY MOUTH THREE TIMES DAILY Rx Instructions: TAKE 1 TABLET BY MOUTH THREE TIMES DAILY amitriptyline 50 mg tablet See Rx Instructions .ROUTE .COMPLEX Qty: 30 3RF Dose Instruction: TAKE 1 TABLET BY MOUTH AT BEDTIME Rx Instructions: TAKE 1 TABLET BY MOUTH AT BEDTIME budesonide-formoterol [Symbicort] 160-4.5 mcg/actuation HFA aerosol inhaler 2 puff INHALATION Q12H Spiriva Respimat 2.5 mcg/actuation mist 2 puff INHALATION BID Vitamin B-12 1,000 mcg/mL drops 1 ml PO DAILY fenofibrate micronized 134 mg capsule 134 mg PO DAILY Patient Comments: not d/c but hasn't taken in one month d/t lack of supply calcium carbonate [Calcium 600] 600 mg calcium (1,500 mg) tablet 600 mg PO DAILY ferrous sulfate [iron] 325 mg (65 mg iron) tablet 325 mg PO DAILY Patient Comments: BID Follow-up/Referrals: Jorge Luis Hill MD [Primary Care Provider, Family Practice]
[2025-01-15] MEDS: SODIUM CHLORIDE 0.9% IV 1,000 ML 999 ML IV CONT (02:58)
[2025-01-15] MEDS: MORPHINE SULFATE (*CRX) 4 MG/ML INJ IV PUSH (02:58)
[2025-01-15 04:15] LABS: BEDSIDEPREGUCG Negative (Negative)
--- NOTE | 2025-01-15 04:29 | ECG_ITS ---
Test Date: 2025-01-15 04:37:45 Measurements Intervals [place] Rate: 79 P: 36 [place]: 164 QRS: 77 QRSD: 89 T: 66 QT: 427 QTc: 490 Interpretive Statements SINUS RHYTHM NORMAL ELECTROCARDIOGRAM No previous ECG available for comparison Electronically Signed On 01-15-2025 07:47:22 AIRCRAFT BODY REPAIRER by Melo Oliveira M.D.
[2025-01-15 04:43] LABS: Add Urine Microscopic? YES; Appearance Urine Clear (Clear); Glucose Urine UA 3+ mg/dL (Negative); Leukocyte Esterase Ur Negative LEU/UL (Negative); Need Manual Microscopic Reviewed; Nitrate Urine Negative (Negative); Specific Grav Ur > 1.045 (1.001-1.035)
[2025-01-15 05:10] LABS: Troponin I < 0.012 ng/mL (0.000-0.034)
--- OUTSIDE RECORDS SUMMARY | 2025-01-15 05:30 | XMS_ITS | Patient Health Record ---
Author Organization [facility] Address [address] [facility] [address] [place] [address] Care Team Providers Care Machinist Set Up Name Role Phone Darrius Chacon Unavailable [phone] Reason For Referral No Information Plan Of Treatment No Information
== END 2025-01-15 05:40 | disposition home or self-care (01) ==
PROVIDERS: Emergency Provider Emergency Medicine; PCP Emergency Medicine
DX: R10.9 Unspecified abdominal pain (principal); K59.00 Constipation, unspecified; Z79.82 Long term (current) use of aspirin; E11.9 Type 2 diabetes mellitus without complications; Z79.84 Long term (current) use of oral hypoglycemic drugs; E78.5 Hyperlipidemia, unspecified; I10 Essential (primary) hypertension; J44.9 Chronic obstructive pulmonary disease, unspecified; G47.33 Obstructive sleep apnea (adult) (pediatric); Z87.891 Personal history of nicotine dependence; Z20.822 Contact with and (suspected) exposure to COVID-19
CPT/HCPCS: 36415; 71045; 74177; 80053; 81001; 81025; 83605; 83690; 84484; 85025; 87637; 93005; 96361; 96374; 96375; 99284; J2270; J2405; J7030; Q9967

== ENCOUNTER 2025-01-23 19:40 | Observation (INO) | payer OTHER, SELFPAY ==
--- NOTE | ~2025-01-23 | XR_ITS ---
Examination: XR chest 1V portable Clinical History: cough, marvel x2wk; h/o COPD Comparison: 01/15/2025 Technique: Portable AP Findings: Heart size normal. Lungs clear. No acute bony abnormality. Left sided [employer]CR[employer] shunt tubing. Right axillary surgical clips. IMPRESSION: 1. No acute cardiopulmonary findings given portable technique. Reviewed, dictated and finalized at location R. [facility] TECHNICIAN
[2025-01-23 19:40] VITALS: O2SAT 100
--- NOTE | 2025-01-23 19:46 | ECG_ITS ---
Test Date: 2025-01-23 19:52:05 Measurements Intervals [place] Rate: 104 P: 77 NE: 161 QRS: 90 QRSD: 76 T: 66 QT: 343 QTc: 453 Interpretive Statements SINUS TACHYCARDIA OTHERWISE NORMAL ECG Compared to ECG 01/15/2025 04:37:45 HEART RATE INCREASED, NO OTHER DIFFERENCE Electronically Signed On 01-24-2025 13:11:41 MANAGER ENERGY by Melo Oliveira M.D.
--- OUTSIDE RECORDS SUMMARY | 2025-01-23 19:54 | XMS_ITS | Encounter Summary ---
Author Organization [facility] Home Care Servic es Address [address] [place] [address] Phone Care Team Providers Care Consulting Group Analyst Name Role Phone Jorge Luis Hill MD Primary Care Provider [phone] Encounter Details Date Type Department Care Team (Late st Contact Info) Description 05/03/2022 Telephone [facility] [place] [address] [address] [place] [phone] Janette Holcomb RN Social History Tobacco Use Types Packs/Day Years Used Date Smoking Tobacco: Every Day Cigarettes 0.5 49.9 Started: 1975 Smokeless Tobacco: Never Comments:Formerly smoked [...] often do you attend chur ch or yarsani services? Never 12/22/2021 Do you belong to any clubs o r organizations such as synagogue groups, unions, fraternal or athletic groups, or [...] in a usp (including now)? No 12/22/2021 Comments No Sex and Gender Information Value Date Recorded Sex Assigned at Not on file Legal Sex Female 1:34 AM HONING JOB SETTER Gender Identity Not on file Sexual Orientation Not on file documented as of this encounter Functional Status * Question Answer Date of Assessment Author BP Method Automatic 05/03/2022 8:15 AM Jesika Davila RN MAP (mmHg) 84 05/03/2022 8:15 AM Jesika Davila RN * Salmon Fall Risk Question Answer Date of Assessment Author History of Falling 0 05/03/2022 8:00 AM Jesika Mclean RN Secondary Diagnosis 15 05/03/2022 8:00 AM Jesika Ellis RN Ambulatory Aids 0 05/03/2022 8:00 AM Jesika Goins Ba, RN Intravenous Therapy/Heparin/Saline Lock 20 05/03/2022 8:00 AM Jesika Ramesh RN Gait/Transferring 0 05/03/2022 8:00 AM Jesika Mclean RN Mental Status 0 05/03/2022 8:00 AM Jesika Sandoval RN Salmon Fall Risk Score (Score >= 45 places fall precaution order) 35 05/03/2022 8:00 AM Jesika Mclean RN Prior Fall Event (Autopopulated from EMR) None found 05/03/2022 8:00 AM Jesika Mclean RN * Joseph Scale Question Answer Date of Assessment Author Sensory Perceptions 4 05/03/2022 8:00 AM CS T Jesika Reyes RN Moisture 4 05/03/2022 8:00 AM Jesika Davila RN Activity 3 05/03/2022 8:00 AM Jesika Davila RN Mobility 3 05/03/2022 8:00 AM Jesika Davila RN Nutrition 3 05/03/2022 8:00 AM Jesika Davila RN Friction and Shear 3 05/03/2022 8:00 AM Jesika Mclean RN Joseph Scale Score 20 05/03/2022 8:00 AM Jesika Mclean RN * BP Location Answer Date of Assessment Author Left arm 05/06/2022 7:42 PM Anastacia Andino sa, RN * Fall Risk Interventions Question Answer Date of Assessment Author All Low Fall Interventions Applied Yes 05/03/2022 8:00 AM Jesika Mclean RN All Moderate Fall Interventions Applied No 05/03/2022 8:00 AM Jesika Mclean RN All Moderate Fall Risk Interventions EXCEPT: Gait belt at bedside;Remain with patient while toileting 05/03/2022 8:00 AM Jesika Mclean RN All High Fall Risk Interventions Applied No 05/03/2022 8:00 AM Jesika Mclean RN All High Risk Interventions EXCEPT: Bed alarm;Chair alarm 05/03/2022 8:00 AM Jesika Mclean RN Reason For Exception(s) Pt demonstrates steady transfer 05/03/2022 8:00 AM Jesika Mclean RN Reason For Exception(s) Pt demonstrates steady transfer; BMAT Green 05/03/2022 8:00 AM Jesika Mclean RN * B.M.A.T. - Bedside Mobility Assessment Tool for Nurses Question Answer Date of Assessment Author Is patient able to participate in the BMAT? Yes 05/03/2022 8:00 AM Jesika Mclean RN BMAT Level Level 4 - Green 05/03/2022 8:00 AM Jesika Goins Ba, RN * Alcohol Withdrawal BP Hierarchy Answer Date of Assessment Author 66 05/06/2022 7:42 PM Anastacia Andino sa, RN * Pressure Injury Prevention Question Answer Date of Assessment Author Pressure Ulcer Prevention Interventions Keep skin clean and dry (Sensory Perception/Moisture ) 05/03/2022 8:00 AM Jesika Mclean RN * Integumentary Question Answer Date of Assessment Author Skin Color Appropriate for ethnicity 05/03/2022 8:00 AM Jesika Mclean RN Skin Condition/Temp Warm;Dry 05/03/2022 8 :00 AM Jesika Mclean RN Skin Integrity Surgical incision 05/03/2022 8:0 0 AM Jesika Mclean RN Skin Turgor Non-tenting 05/03/2022 8:00 AM Jesika Mclean RN Integumentary Additional Assessments Yes-Joseph 05/03/2022 8:00 AM Jesika Mclean RN Integumentary (WDL) X 05/03/2022 8 :00 AM Jesika Mclean RN Skin Location R scapula 05/03/2022 8:00 AM Jesika Mclean RN * Question Answer Date of Assessment Author BP Method Automatic 05/03/2022 8:15 AM Jesika Davila RN * BP Location Answer Date of Assessment Author Left arm 05/06/2022 7:42 PM Anastacia Andino sa, RN * Question Answer Date of Assessment Author Bed In Lowest Position Yes 05/03/2022 8:00 AM Jesika Mclean RN Bed Wheels Locked Yes 05/03/2022 8:00 AM Jesika Mclean RN * Fall Risk Interventions Question Answer Date of Assessment Author All Low Fall Interventions Applied Yes 05/03/2022 8:00 AM Jesika Mclean RN All Moderate Fall Interventions Applied No 05/03/2022 8:00 AM Jesika Mclean RN All Moderate Fall Risk Interventions EXCEPT: Gait belt at bedside;Remain with patient while toileting 05/03/2022 8:00 AM Jesika Mclean RN All High Fall Risk Interventions Applied No 05/03/2022 8:00 AM Jesika Mclean RN All High Risk Interventions EXCEPT: Bed alarm;Chair alarm 05/03/2022 8:00 AM Jesika Mclean RN Reason For Exception(s) Pt demonstrates steady transfer 05/03/2022 8:00 AM Jesika Mclean RN Reason For Exception(s) Pt demonstrates steady transfer; BMAT Green 05/03/2022 8:00 AM Jesika Mclean RN * Question Answer Date of Assessment Author Hygiene Other (Comment) 05/03/2022 8:00 AM Jesika Goins Ba, RN Hygiene Level of Assistance Independent 05/03/2022 8:00 AM Jesika Mclean RN Toileting: Level of assistance Independent 05/03/2022 8:00 AM Jesika Mclean RN Reason not bathed/showered Patient/family refused bath/shower 05/03/2022 8:00 AM Jesika Mclean RN Perineal Care Anne Care 05/03/2022 8:00 AM Jesika Sandoval RN Linens Extra Craig 05/03/2022 8:00 AM Jesika Sandoval RN Bath Not bathed/showered 05/03/2022 8:00 AM Jesika Ellis RN * Nutrition Question Answer Date of Assessment Author Feeding Level of Assistance Able to feed self 05/03/2022 8:00 AM Jesika Mclean RN Appetite Good 05/03/2022 8:00 AM Jesika Davila RN documented as of this encounter Mental Status * Question Answer Entry Date Author Level of Consciousness Alert;Awake 8:00 AM Jesika Mclean RN Orientation Oriented X4 (person, place, time, situation) 05/03/2022 8:00 AM Jesika Mclean, RAQUEL Neuro (WDL) WDL 05/03/2022 8:00 AM Jesika Mclean, RAQUEL documented in this encounter Plan of Treatment Not on file documented as of this encounter Visit Diagnoses Not on filedocumented in this encounter Additional Health Concerns Infection Onset Date Last Indicated Resolved Time MDR gram neg/ESBL 2022 2022 documented as of this encounter Care Teams Consulting Group Analyst Relationship Specialty Start Date End Date Jorge Luis Hill MD PCP - General 04/30/18 documented as of this encounter
--- OUTSIDE RECORDS SUMMARY | 2025-01-23 19:54 | XMS_ITS | Clinical Summary ---
Author Organization [facility] Address [address] [place] [address] Care Team Providers Care Zipper Cutter Name Role Phone Jorge Luis Hill MD Primary Care Provider [phone] Source Comments [facility],non-owned Affiliates and Associated Physician Practices is amultiple site organization consisting of ambulatory clinics and hospital sitesin [place], [place], [place] and [place]. This disclosure is being madepursuant to the Care Everywhere program and may not contain all information available regarding this patient. Last updated 17.[facility] Allergies No known active allergies Medications * [...] naloxone HCl (Narcan) 4 MG/0.1ML nasal spray [place] 40 (forty) sprays into the nose [...] on file Legal Sex Female 7:26 PM ONLINE TRADER Gender Identity Not on file Sexual Orientation Not on file Last Filed Vital Signs Vital Sign Reading Time Taken Comments Blood Pressure 155/92 03/24/2023 2:17 PM ONLINE TRADER Pulse 101 03/24/2023 2:17 PM ONLINE TRADER Temperature 36.7 C (98 F) 03/24/2023 2:17 PM ONLINE TRADER Respiratory Rate 18 03/24/2023 2:17 PM ONLINE TRADER Oxygen Saturation 96% 03/24/2023 2:17 PM ONLINE TRADER Inhaled Oxygen Concentration - - Weight 84.3 kg (185 lb 12.8 oz) 03/24/2023 2:17 PM ONLINE TRADER Height 162.6 cm (5' 4) 03/24/2023 2:17 PM ONLINE TRADER Body Mass Index 31.89 03/24/2023 2:17 PM ONLINE TRADER Plan of Treatment Health Maintenance Due Date [...] patient's age to complete this topic Insurance [facility] Care Teams Zipper Cutter Relationship Specialty Start Date End Date Jorge Luis Hill MD [address] [place] [address] [address] [place] [address] PCP - General 02/10/17
--- OUTSIDE RECORDS SUMMARY | 2025-01-23 19:54 | XMS_ITS | Data Portability ---
Author Organization [place] [facility], Main Office Address [address] [place] [address] Care Team Providers Care Utility Tender Carding Name Role Phone MASSIMO QUINTANA Primary Care [...] 4.8mcg/ac tuation HFA aerosol inhaler 2022 023 [id number], [address] [place], [place], [phone], 11/30/2022 21:32:06 albuterol sulfate HFA 90 mcg/actua tion aerosol inhaler 2022 023 [facility] #[id number], [address] [place], [place], [phone], 11/30/2022 21:32:06 ropinirol e 0.5 mg tablet [address] [facility], [address] [place], [address], 07/05/2022 21:39:36 Patient TargetsNo targets recorded. Patient InstructionsNo instructions recorded. Reason for Referral None Reported. Results Created Date Observation Date Name Description Value Unit Range Abnormal Flag Note LastModifiedBy Organization Detail LastModifiedTime 12/11/19 22 12/07/2021 six minut e walk test* No observ ation record ed. [id number] [facility] (Cardiology & Emg) [facility] [address] [place] [address], [phone], 04/27/2022 01:23:36 12/11/19 22 12/07/2021 compl ete PFT w/ post [facility] hodil ator clarisa metry * No observ ation record ed. [id number] [facility] (Cardiology & Emg) [address] [place] [address] [place] [address], [phone], 04/27/2022 01:23:36 12/25/19 22 12/07/2021 compl ete PFT w/ post [facility] hodil ator clarisa metry * No observ ation record ed. [id number] [place] [address] (Cardiology & Emg) [address] [place] [address] [place] [address], [phone], 04/27/2022 01:23:36 12/25/19 22 12/07/2021 six minut e walk test* No observ ation record ed. [id number] [facility] (Cardiology & Emg) [address] [place] [address] [place] [address], [phone], 04/27/2022 01:23:36 Result Notes None recorded. Problems Name Problem SNOMED Code Status Onset Date Resolution Date Notes Provider Name and Address Organization Details Recorded Time Chronic obstructive pulmonary disease 58806326 Active 2017 Not Available [facility] 3 01:04:05 Body mass index 30+ - obesity 063969749 Active 2017 Not Available [facility] 3 01:04:05 Gastroesophag eal reflux disease without esophagitis 429995949 Active 2017 Not Available [facility] 3 01:04:05 Periodic limb movement disorder 328525654 Active 2017 Not Available [facility] 3 01:04:05 Dyspnea on exertion 23973656 Active 2017 Not Available [facility] 3 01:04:06 Obstructive sleep apnea syndrome 26677875 Active 2017 Not Available [facility] 3 01:04:06 Fatigue 03805771 Active 2017 Not Available [facility] 3 01:04:06 Tobacco dependence syndrome 98209304 Active 2017 Not Available [facility] 3 01:04:06 Allergic rhinitis 28249796 Active 2020 Not Available [facility] 3 01:04:06 Nicotine dependence 60719505 Active 2020 Not Available [facility] 3 01:04:05 Tachycardia 3076947 Active 2021 Not Available [facility] 3 01:04:05 Infection of tooth 677383040 Active 2021 Not Available [facility] 3 01:04:05 Chronic cough 01908679 Active 2021 Not Available [facility] 3 01:04:06 Hemoptysis 57192221 Active 2021 Not Available [facility] 3 01:04:06 Abscess of submandibular region 25696034 Active 2021 Not Available [facility] 3 01:04:05 Problem Notes None recorded. Procedures Surgical History Date Name Laterality Status Provider Name and Address Organization Details Recorded Time 2 colonoscopy completed Not Available [facility] 04/28/19 23 00:52:48 Imaging Results None recorded. [...] height Body temperature Heart rate Oxygen saturation Inhaled oxygen flow rate Systolic And Diastolic Provider Name and Address Organization Details Last Updated DateTime 3 156.21 cm 96.6 [degF] 100 /min 97 % 2 L/min 120/70 mm[Hg] Bessie Ty MA [facility] [employer] [facility] 3 14:04:16 Date Recorded Body height Body temperature Heart rate Oxygen saturation Inhaled oxygen flow rate Systolic And Diastolic Provider Name and Address Organization Details Last Updated DateTime 3 156.21 cm 97.3 [degF] 98 /min 95 % 2 L/min 120/64 mm[Hg] Bessie Ty MA [facility] [employer] [facility] 3 14:25:29 Date Recorded Body height Oxygen saturation Heart rate Systolic And Diastolic Provider Name and Address Organization Details Last Updated DateTime 11/29/2021 156.21 cm 98 % 91 /min 120/62 mm[Hg] Not Available [facility] 04/27/2022 00:54:34 Date Recorded Body height Heart rate Oxygen saturation Inhaled oxygen flow rate Systolic And Diastolic Provider Name and Address Organization Details Last Updated DateTime 11/30/2022 156.21 cm 112 /min 97 % 2 L/min 118/68 mm[Hg] Laura Kwon [facility] [employer] [facility] 3 16:29:56 Date Recorded Body mass index (BMI) Body height Oxygen saturation Heart rate Body weight Systolic And Diastolic Provider Name and Address Organization Details Last Updated DateTime 2 42.8 kg/m2 156.21 cm 98 % 90 /min 862213. 25 g 126/72 mm[Hg] Not Available [facility] 3 00:54:34 Social History Question Answer Notes LastModified by Organization Details LastModified Time Tobacco Smoking Status Current Every Day Smoker Not Available [facility] 04/27/2022 00:48:19 Do You Have An Advance Directive? No MIGRATION.0301 [id number] Information not available 04/27/2022 What Is Your Level Of Caffeine Consumption? Heavy Coffee Drinker All Day Longer MIGRATION.0301 405413 Information not available 04/27/2022 How Much Tobacco Do You Chew? None MIGRATION.0301 584031 Information not available 04/27/2022 In The 14 Days Before Symptom Onset, Have You Had Close Contact With A Laboratory-confi rmed COVID-19 While That Case Was Ill? No MIGRATION.0301 634820 Information not available 04/27/2022 In The 14 Days Before Symptom Onset, Have You Had Close Contact With A Person Who Is Under Investigation For COVID-19 While That Person Was Ill? No MIGRATION.0301 123927 Information not available 04/27/2022 What Type Of Diet Are You Following? REGULAR MIGRATION.0301 368246 Information not available 04/27/2022 Which Illicit Or Recreational Drugs Have You Used? None MIGRATION.0301 268613 Information not available 04/27/2022 Do You Have An Electrostatic Air Filter? No MIGRATION.0301 271571 Information not available 04/27/2022 Do You Have A Humidifier? No MIGRATION.0301 704338 Information not available 04/27/2022 Where Do You Live? [facility] MIGRATION.0301 392201 Information not available 04/27/2022 Do You Have Moisture Problems In Your Home? No MIGRATION.0301 110590 Information not available 04/27/2022 What Was The Date Of Your Most Recent Tobacco Screening? 12/01/2020 MIGRATION.0301 275827 Information not available 04/27/2022 How Many Children Do You Have? 2 MIGRATION.0301 644349 Information not available 04/27/2022 Have You Ever Been Counseled For Unhealthy Alcohol Use? No MIGRATION.0301 896591 Information not available 04/27/2022 Do You Have Any Pets? Yes Dogs Inside MIGRATION.0301 131856 Information not available 04/27/2022 Do You Have Smoke And Carbon Monoxide Detectors In Your Home? Yes MIGRATION.0301 715243 Information not available 04/27/2022 At What Age Did You Start Smoking Tobacco? 12 MIGRATION.0301 019744 Information not available 04/27/2022 Are You Passively Exposed To Smoke? Yes MIGRATION.0301 304874 Information not available 04/27/2022 How Much Tobacco Do You Smoke? 0.5 PPD MIGRATION.0301 505735 Information not available 04/27/2022 Has Tobacco Cessation Counseling Been Provided? No MIGRATION.0301 928062 Information not available 04/27/2022 How Many Years Have You Smoked Tobacco? 47 MIGRATION.0301 694354 Information not available 04/27/2022 Have You Recently Traveled Abroad? No MIGRATION.0301 366934 Information not available 04/27/2022 Do You Have Any Dietary Restrictions? No MIGRATION.0301 799377 Information not available 04/27/2022 Sex: Female Functional Status Question Answer Note LastModified by Organizat ion Details LastModified Time Do you use any illicit or recreational drugs? No MIGRATION.723780 9849 Information not available 04/27/2022 Do you or have you ever used any other forms of tobacco or nicotine? No MIGRATION.271204 8474 Information not available 04/27/2022 What is your level of alcohol consumption? None MIGRATION.448021 8176 Information not available 04/27/2022 Do you or have you ever used smokeless tobacco? 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 Never used electronic cigarettes MIGRATION.490928 8767 Information not available 04/27/2022 What is your exercise level? None MIGRATION.552704 4506 Information not available 04/27/2022 Mental Status None recorded. Family History Relationship Description Onset Age of this Age Resolved Age Notes LastModified by Organization Details LastModified Time Mother Heart disease MIGRATION.196 [id number] Not available 04/27/2022 00:52:53 Mother Hyperlipidem ia MIGRATION.020 [id number] Not available 04/27/2022 00:52:53 Father Diabetes mellitus MIGRATION.661 3071353 Not available 04/27/2022 00:52:54 Father Hypertensive disorder MIGRATION.263 [id number] Not available 04/27/2022 00:52:54 Father Hyperlipidem ia MIGRATION.668 [id number] Not available 04/27/2022 00:52:54 Maternal Grandmother Hypertensive disorder MIGRATION.706 0939560 Not available 04/27/2022 00:52:54 Maternal Grandmother Diabetes mellitus MIGRATION.030 5168721 Not available 04/27/2022 00:52:54 Maternal Grandmother Hyperlipidem ia MIGRATION.425 [id number] Not available 04/27/2022 00:52:54 Maternal Aunt Tuberculosis MIGRA TION.616 [id number] Not available 04/27/2022 00:52:54 Medical History Condition Response LUNG DISEASE/DISORDER Y OBESITY Y GERD/NAUSEA Y HYPERTENSION Y INSOMNIA Y HIGH CHOLESTEROL / HYPERLIPIDEMIA Y HAVE YOU BEEN HOSPITALIZED OR SEEN IN [facility] ER IN THE PAST YEAR ? Y DIABETES, TYPE Y HEADACHES/MIGRAINES Y Gynecological HistoryNo gynecological history recorded. Obstetrics History GPAL:G 0 P 0 0 0 0 Immunizations Vaccine Type Date Status Note Provider Nam e and Address Organization Details Recorded Time COVID-19, mRNA, LNP-S, PF, 30 mcg/0.3 mL dose 08/26/2020 completed Not Available [facility] 3 01:22:02 COVID-19, mRNA, LNP-S, PF, 30 mcg/0.3 mL dose 08/05/2020 completed Not Available [facility] 3 01:22:02 Influenza, split virus, quadrivalent, PF 01/10/2022 completed Not Available [facility] 3 01:22:03 Past Encounters Encounter ID Performer Location Encounter Start Date Encounter Closed Date Diagnosis/Indication Diagnosis SNOMED-CT Code Diagnosis ICD10 Code Diagnosis IMO Codes Diagnosis Note [id number] Jany Hernandez, COLD STORAGE SUPERINTENDENT- [facility] [address] [address] 05/04/2020 00:00:00 05/04/2020 16:30:03 [id number] [facility] [place] [address] [place] [address] 08/04/2020 00:00:00 08/04/2020 22:05:39 [id number] [facility] [place] [address] [place] [address] 12/01/2020 00:00:00 12/01/2020 16:42:55 [id number] [facility] [place] [address] [place] [address] 01/18/2021 00:00:00 01/18/2021 13:55:44 [id number] MD NATHAN Obando IGRATION_ DEFAULT_1 _1 , 05/06/2021 00:00:00 05/06/2021 20:34:03 [id number] [facility] [place] [address] [place] [address] 05/17/2021 00:00:00 05/17/2021 15:36:20 [id number] MD NATHAN Obando IGRATION_ DEFAULT_1 _1 , 07/01/2021 00:00:00 07/01/2021 18:04:40 [id number] [facility] [place] [address] [place] [address] 08/17/2021 00:00:00 08/17/2021 15:25:57 [id number] [facility] [place] [address] [place] [address] 11/29/2021 00:00:00 11/29/2021 14:11:03 [id number] Jany Hernandez [facility] [place] [address] [place] [address] 01/10/2022 00:00:00 01/10/2022 22:47:30 [id number] Lisa Zelaya NP [facility] [address] [address] 08/17/2020 00:00:00 08/17/2020 19:27:11 [id number] Lisa Zelaya NP [facility] [address] [address] 09/16/2020 00:00:00 09/16/2020 17:31:30 [id number] Lisa Zelaya NP [facility] [address] [address] 10/14/2020 00:00:00 10/14/2020 16:40:48 [id number] Lisa Zelaya NP [facility] [address] [address] 11/11/2020 00:00:00 11/11/2020 16:25:13 [id number] Lisa Zelaya NP [facility] [address] [address] 12/10/2020 00:00:00 12/10/2020 16:23:52 [id number] Lisa Zelaya NP [facility] [address] [place] [address] [address] 02/01/2021 00:00:00 02/01/2021 12:49:29 [id number] Lisa Zelaya NP [facility] [address] [place] [address] [address] 03/18/2021 00:00:00 03/18/2021 15:50:51 [id number] Lisa Zelaya NP [facility] [address] [place] [address] [address] 04/28/2021 00:00:00 04/28/2021 16:40:45 [id number] Lisa Zelaya NP [facility] [address] [place] [address] [address] 05/26/2021 00:00:00 05/26/2021 18:15:58 [id number] Lisa Zelaya NP [facility] [address] [place] [address] [address] 06/23/2021 00:00:00 06/23/2021 17:59:26 [id number] Lisa Zelaya NP [facility] [address] [place] [address] [address] 07/21/2021 00:00:00 07/21/2021 18:12:22 [id number] Lisa Zelaya, BEVERLY [facility] [address] [place] [address] [address] 09/23/2021 00:00:00 09/24/2021 15:34:34 [id number] Lisa Zelaya NP [facility] [address] [address] 10/26/2021 00:00:00 10/27/2021 11:35:19 [id number] Lisa Zelaya NP [facility] [address] [address] 12/23/2021 00:00:00 12/23/2021 17:16:35 [id number] Lisa Zelaya NP [facility] [address] [address] 03/01/2022 00:00:00 03/01/2022 15:14:47 [id number] Lisa Zelaya NP [facility] [address] [address] 05/18/2022 16:17:51 05/18/2022 19:08:45 [id number] Jany Hernandez, [facility] [place] [address] [place] [address] 05/24/2022 13:49:11 05/25/2022 08:31:43 Chronic obstructive pulmonary disease 17459803 J44.9 Trelegy Ellipta with persistent thrush reactions. 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 and truing machine operator 02/17/20Do wnload today with 77% [...] and lose weight Abscess of submandibular region 02927749 K12.2 CT Neck 12/13/21IM PRESSION:E rosion involving [...] drainable fluidcolle ction.Surg anson completed Chronic cough 14053014 R 05.3 She must quit smoking and maintain inhaler compliance Benzonatat e PRN onlyhistor y of multiple allergies to cat, dog, grassesCon tinue ClaritinSh e needs to see casino accountant - previous referralSh e will schedule this after surgery for abscess Nicotine dependence 5629 4008 Z87.891 Smoking cessation counseling and techniques reviewed at length. L iterature reviewed.A void triggers, support groups.Dis traction techniques Greater than 3 but less than 10 minutes spent discussing cessation. Declines NRT.Discus sed Rx options if needed in the future. Dependence on supplemental oxygen 7086255316 07 Z99.81 2 liters with activity on DC from hospitalB C home care: / [phone] is compliant and has good benefit [id number] Jany Hernandez, [facility]- [facility] [place] [address] [place] [address] 07/05/2022 13:58:42 07/06/2022 08:23:18 Chronic obstructive pulmonary disease 45286013 J44.9 Trelegy Ellipta with persistent thrush reactions. 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 02/17/20Do wnload today with 77% [...] signs and symptoms Dependence on supplemental oxygen 1565429737 07 Z99.81 2 liters with activity on DC from hospital C home care: / [phone] is compliant and has good benefitPla n to repeat this fall Dyspnea on exertion 6084 5006 R06.09 Multifacto ralLabs except RAST WNLShe must quit smoking and lose weight Chronic cough 69088974 R 05.3 She must quit smoking and maintain inhaler compliance Benzonatat e PRN only - order verbally called to pharmacy todayhisto ry of multiple allergies to cat, dog, grassesCon tinue ClaritinSh e needs to see casino accountant - previous referral Abscess of submandibular region 53519578 K12.2 CT Neck 12/13/21IM PRESSION:E rosion involving [...] Rx options if needed in the future. [id number] Lisa Zelaya NP [facility] [address] [address] 08/17/2022 15:15:54 08/17/2022 18:08:44 [id number] Lisaalbert Connorjen, BEVERLY [facility] [address] [place] [address] 09/22/2022 15:15:15 09/26/2022 17:03:51 [id number] Lisa ZelayaBEVERLY [facility] [address] [place] [address] 11/15/2022 15:50:53 11/15/2022 16:43:16 [id number] Jany Mary, COLD STORAGE SUPERINTENDENT-[facility] Pulmonolo gy [place] [address] [place] [address] 11/30/2022 16:05:16 11/30/2022 17:25:18 Chronic obstructive pulmonary disease 22347985 J44.9 Trelegy Ellipta with persistent thrush reactions. 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 home care: / [phone] is compliant and has good benefit Dyspnea on exertion 6084 5006 R06.09 Multifacto ralLabs except RAST WNLShe must quit smoking and lose weight Chronic cough 17529392 R 05.3 She must quit smoking and maintain inhaler compliance history of multiple allergies to cat, dog, grassesCon tinue ClaritinSh e needs to see casino accountant - previous referral Abscess of submandibular region 04416964 K12.2 CT Neck 12/13/21IM PRESSION:E rosion involving [...] Rx options if needed in the future. [id number] Lisa Zelaya NP [facility] 2043 [facility], [address] [address] 02/09/2023 16:02:05 02/09/2023 17:31:11 [id number] Lisa Zelaya NP [facility] [address] [address] 05/02/2023 14:38:16 05/02/2023 15:37:25 [id number] Lisa Zelaya NP [facility] [address] [address] 09/25/2023 15:27:14 09/25/2023 17:33:48 [id number] Lisa Zelaya NP [facility] [address] [place] [address] [address] 11/30/2023 15:04:02 11/30/2023 15:47:13 [id number] Lisa Zelaya NP [facility] [address] [address] 02/14/2024 14:44:14 02/14/2024 15:16:38 [id number] Lisa Zelaya NP [facility] [address] [address] 04/09/2024 14:31:00 04/18/2024 12:13:35 [id number] Lisa Zelaya NP [facility] [address] [address] 07/08/2024 14:29:57 07/08/2024 15:19:04 [id number] Lisa Zelaya NP [facility] [address] [address] 09/05/2024 16:49:00 09/05/2024 18:17:58 [id number] Lisa Zelaya NP [facility] [address] [address] 12/02/2024 15:51:30 12/02/2024 18:36:18 Health Concerns Section Related Observation LastModified by Organization Detai ls LastModified Time None Recorded Concern Status LastModified by Organization Details LastModified Time None Recorded Advance Directives Directive N: Payers Insurance Date Sequence Insurance Name Policy Number Policy Beth Covered Member ID Beth Member ID Guarantor Name 11/29/[address] [facility] - DOS ON OR AFTER 20 (MEDICAID REPLACEMENT - HMO) Bev Grossman [id number] Bev Grossman Notes Date Note Type Note [...] in the last 3 months Jany Hernandez, [facility] [address] [facility] [address], [place], [address], [facility] [employer] 05/24/2022 16:45:47 07/05/2022 text/html Bev presents today [...] respiratory infection in the last 4 months [facility] [address], [place] [address], [place], [address], [employer] 07/05/2022 21:43:21 11/30/2022 text/html Bev presents today to follow up on COPD, cough, dyspnea, PLMD, ELIOT, nicotine dependenceRemains on Breztri with good clinical benefitDenies wheezing.Cough is daily but improvedShtania has significantly decreased activity tolerance and staminaContinues to use wheelchair for most activityAimee is living in a hotel and does not have a car currentlyAimee is compliant nightly with PAPShtania does feel like her CPAP changes have improved sleep and fatigueSmoking about 1/4 PPDDenies chest pain and unintentional weight loss.No dysphagia or GERDNo respiratory infection since last OV PATRICA Hardy [address] [place] [address], [place], [address], [employer] 11/30/2022 21:36:04 OBGyn Episode No OBEpisode recorded.
--- OUTSIDE RECORDS SUMMARY | 2025-01-23 19:54 | XMS_ITS | Clinical Summary ---
Author Organization [facility] Address [address], [place] [address] Phone Care Team Providers Care Olericulture Teacher Name Role Phone Jorge Luis Hill MD Primary Care Provider [phone] Allergies No known active allergies Medications alendronate [...] night. Active Cholecalciferol (Vitamin D3) 1.25 MG (13688 UT) capsule Take by mouth per week [...] 2024 3, 01/10/2022, 03/05/2021 Insurance Care Teams Olericulture Teacher Relationship Specialty Start Date End Date Jorge Luis Hill MD PCP - General Family Medicine 08/28/18
--- OUTSIDE RECORDS SUMMARY | 2025-01-23 19:54 | XMS_ITS | Clinical Summary ---
Author Organization [facility] Address [address] [place] [address] Care Team Providers Care Claim Benefit Specialist Name Role Phone Jorge Luis Hill MD Primary Care Provider [phone] Medications PROAIR HFA 90 mcg/actuation inhaler INHALE [...] mg tablet Active naloxone (Narcan) 4 mg/spray [place], Non-Aerosol Narcan 4 mg/actuation nasal spray 03/18/19 [...] mg iron) Tablet, Delayed Release (E.C.) 08/18/19 Active escitalopram oxalate (LEXAPRO) 10 mg tablet [...] Laterality Modality Breast Right Mammography us Mallory Cervantes Malaciciyumiko DO MAMMO ORDERABLES Final Resu lt from Last 3 Months or Most Recently Relevant to Health Maintenance Insurance [employer] Care Teams Claim Benefit Specialist Relationship Specialty Start Date End Date Jorge Luis Hill MD PCP - General Emergency Medicine 05/30/18
--- OUTSIDE RECORDS SUMMARY | 2025-01-23 19:54 | XMS_ITS | Encounter Summary ---
Author Organization [facility] Address [address] [place] [address] Phone Care Team Providers Care Paid Intern Name Role Phone Jorge Luis Hill MD Primary Care Provider [phone] Encounter Details Date Type Department Care Team (Late st Contact Info) Description 05/07/2022 Documentation [facility]) - [facility] Medicine ENT [address] [facility] Advanced Medicine 11th [place] [address] [place] [address] Amadeo Bazzi MD [address] [place] [address] Social History Tobacco Use Types Packs/Day Years [...] How often do you attend chur or nondenominational services? 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 Gender Identity Not on file Sexual Orientation Not on file documented as of this encounter Functional Status * BP Location Answer Date of Assessment Author Right arm 05/09/2022 3:48 PM Carmela Long RN * Alcohol Withdrawal BP Hierarchy Answer Date of Assessment Author 84 05/09/2022 3:48 PM CDT Carmela Conde RN * BP Location Answer Date of Assessment Author Right arm 05/09/2022 3:48 PM Carmela Long RN documented as of this encounter Plan of Treatment Not on file documented as of this encounter Visit Diagnoses Not on filedocumented in this encounter Additional Health Concerns Infection Onset Date Last Indicated Resolved Time MDR gram neg/ESBL 2022 2022 documented as of this encounter Care Teams Paid Intern Relationship Specialty Start Date End Date Jorge Luis Hill MD PCP - General 04/30/18 documented as of this encounter
--- OUTSIDE RECORDS SUMMARY | 2025-01-23 19:54 | XMS_ITS | Clinical Summary ---
Author Organization [facility] Address [facility] [place] [address] Care Team Providers Care Port Traffic Manager Name Role Phone Jorge Luis Hill MD Primary Care Provider [phone] Allergies No known active allergies Medications rosuvastatin [...] capsule 2 Active vitamin D2, ergocalciferol , 63535 UNITS capsule 2 Active escitalopram 20 MG [...] Comments Blood Pressure 106/76 05/05/2021 12:15 PM PRODUCT SUPPORT ENGINEER Pulse 83 05/05/2021 12:15 PM PRODUCT SUPPORT ENGINEER Temperature 36.1 C (96.9 F) 05/05/2021 11:58 AM PRODUCT SUPPORT ENGINEER Respiratory Rate 14 05/05/2021 12:15 PM PRODUCT SUPPORT ENGINEER Oxygen Saturation 94% 05/05/2021 12:15 PM PRODUCT SUPPORT ENGINEER Inhaled Oxygen Concentration - - Weight 108.4 kg (239 lb) 05/05/2021 10:03 AM PRODUCT SUPPORT ENGINEER Height 157.5 cm (5' 2) 05/05/2021 10:03 AM PRODUCT SUPPORT ENGINEER Body Mass Index 43.71 05/05/2021 10:03 AM PRODUCT SUPPORT ENGINEER Plan of Treatment Health Maintenance Due Date [...] Diagnosis Comments COLONOSCOPY Routine 05/05/2021 11:05 AM PRODUCT SUPPORT ENGINEER from Last 3 Months or Most Recently Relevant to Health Maintenance Results * Colonoscopy (05/05/2021 11:05 AM PRODUCT SUPPORT ENGINEER) Narrative Estuardo Wells MD - 05/05/2021 11:05 AM PRODUCT SUPPORT ENGINEER Estuardo Wells MD 05/05/2021 12:05 PM ESTUARDO [...] the left lateral decubitus position, the Olympus [id number] colonoscope was introduced into the rectum and [...] of liver 04-14-2021 but was inpatient at [facility] - Will check to see if she had CT scan while inpatient Thank you for allowing me to care for your patient. She will follow-up with Dr. Hill as needed. Estuardo Wells M.D. Cc: Dr. Nithin Hill Estuardo Wells MD GI PROCEDURE ORDERABLES Fin al Result from Last 3 Months or Most Recently Relevant to Health Maintenance Insurance Care Teams Port Traffic Manager Relationship Specialty Start Date End Date Jorge Luis Hill MD [address] [place] [id number] PCP - General FAMILY PRACTICE 11/25/19
[2025-01-23 20:12] VITALS: PULSE 96; RESP 28
[2025-01-23 20:19] LABS: Alanine Aminotransferase 21 U/L (6-35); Albumin Level 5.0 g/dL (3.5-5.1); Alkaline Phosphatase 110 U/L (38-126); Anion Gap 13 mmol/L (4-12); Aspartate Amino Transferase 27 U/L (14-36); Bilirubin,Total 0.9 mg/dL (0.2-1.3); Blood Urea Nitrogen 16 mg/dL (7-17); Calcium 10.0 mg/dL (8.4-10.2); Carbon Dioxide 19 mmol/L (22-30); Chloride 104 mmol/L (98-107); Estimated Glomerular Filt Rate 50; Glucose 75 mg/dL (65-110); Magnesium 2.3 mg/dL (1.6-2.3); Potassium 4.4 mmol/L (3.4-5.0); Sodium 136 mmol/L (137-145); Total Protein 8.8 g/dL (6.3-8.2)
[2025-01-23 20:23] LABS: Hematocrit 42.0 % (37.0-47.0); Hemoglobin 14.1 g/dL (12.0-15.0); Immature Granulocyte Percent A 0.6 % (0-0.5); Lymphocytes Absolute Auto 2.08 K/mm3 (0.9-3.2); Mean Corpuscular HGB Conc 33.6 g/dl (32-36); Mean Corpuscular Hemoglobin 32.4 pg (26-34); Mean Corpuscular Volume 96.6 fl (80-100); Nucleated Red Blood Cells Absolute Auto 0.000 K/mm3 (0.0-0.012); Nucleated Red Blood Cells Perc 0.0 % (0.0-0.2); Platelet Count Result 341 k/mm3 (150-375); Red Blood Count 4.35 M/mm3 (4.2-5.4); White Blood Count 11.0 K/mm3 (4.5-10.0)
[2025-01-23 20:29] LABS: NT Pro B Type Natriuretic Pept 117 pg/mL (19.9-100)
--- NOTE | 2025-01-23 20:44 | ED.SOB ---
HPI - SOB/Dyspnea General Chief Complaint: Shortness of Breath/Dyspnea Stated Complaint: sob Time Seen by Provider: 01/23/25 19:43 History of Present Illness HPI Narrative: For the last 2 weeks, patient has been having increasing difficulty breathing, she does have history of COPD has been trying her medications at home without improvement. No chest pain. Also has chronic right hip pain Related Data Home Medications ?Medication ?Instructions ?Recorded ?Confirmed ?Last Taken ?Type montelukast 10 mg tablet 10 mg PO HS 12/09/19 12/24/24 10/29/24 History (Singulair) metformin 500 mg tablet 500 mg PO DAILY 06/07/21 12/24/24 10/29/24 History clonidine HCl 0.1 mg tablet 0.1 mg PO HS 09/25/21 12/24/24 10/28/24 History furosemide 40 mg tablet 40 mg PO DAILY 09/25/21 12/24/24 10/29/24 History losartan 50 mg tablet 50 mg PO DAILY 09/25/21 12/24/24 10/29/24 History albuterol sulfate 90 mcg/actuation 2 puff inhalation QID PRN 12/10/21 12/24/24 10/29/24 History aerosol inhaler (Ventolin HFA) Shortness Of Breath cholecalciferol (vitamin D3) 25 25 mcg PO DAILY 12/10/21 12/24/24 10/29/24 History mcg (1,000 unit) tablet (Vitamin D3) ropinirole 0.25 mg tablet 0.25 mg PO HS 12/10/21 12/24/24 10/28/24 History rosuvastatin 20 mg tablet 20 mg PO DAILY 12/10/21 12/24/24 10/29/24 History diltiazem HCl 360 mg 360 mg PO DAILY 07/07/23 12/24/24 10/29/24 History capsule,extended release 24 hr loratadine 10 mg tablet 10 mg PO DAILY 07/07/23 12/24/24 10/29/24 History sitagliptin phosphate 50 mg tablet 50 mg PO DAILY 07/07/23 12/24/24 10/29/24 History (Januvia) aspirin 81 mg capsule 81 mg PO DAILY 03/18/24 12/24/24 10/29/24 History budesonide-formoterol HFA 160 2 puff inhalation Q12H 07/23/24 12/24/24 10/29/24 History mcg-4.5 mcg/actuation aerosol inhaler (Symbicort) cyanocobalamin (vitamin B-12) 1 ml PO DAILY 07/23/24 12/24/24 10/29/24 History 1,000 mcg/mL oral drops (Vitamin B-12) fenofibrate micronized 134 mg 134 mg PO DAILY 07/23/24 12/24/24 10/29/24 History capsule tiotropium bromide 2.5 2 puff inhalation BID 07/23/24 12/24/24 10/29/24 History mcg/actuation mist for inhalation (Spiriva Respimat) calcium carbonate (Calcium 600) 600 mg PO DAILY 10/29/24 12/24/24 Unknown History ferrous sulfate 325 mg (65 mg 325 mg PO DAILY 10/29/24 12/24/24 Unknown History iron) tablet (iron) Allergies Allergy/AdvReac Type Severity Reaction Status Date / Time No Known Allergies Allergy Verified 01/15/25 00:18 Review of Systems Review of Systems: All systems reviewed & are unremarkable except as noted in HPI and below PMFSH Past Medical History Medical History Sacroiliitis Diabetes CVA (cerebral vascular accident) Depression Hyperlipemia Hypertension COPD (chronic obstructive pulmonary disease) Anxiety Arthritis Gastritis Asthma ELIOT (obstructive sleep apnea) Lumbar radiculopathy Folliculitis Surgical History Surgical History History 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 H/O: hysterectomy H/O cardiac catheterization Family History Family History Father Diabetes mellitus Hypertension Mother Hypertension Other Arthritis Asthma Cancer Cerebrovascular accident Depression Family history of arthritis Family history of heart disease in male family member before age 55 Family history of lung disease High cholesterol Social History Social History Smoking packs per day: 1.5 Smoking cigarettes per day: 30.0 Years smoked: 48 Smoking pack-years: 72.00 Smoking status: Current some day smoker Tobacco type: cigarettes Second hand tobacco smoke exposure: Yes Smoking end date: 01/28/24 Additional smoking assessment comments: QUIT 2023 Alcohol intake: former Substance use: never Substance use type: does not use Lack of Transportation: YES Lack of Food: Sometimes True Current Housing: I Do Not Have Housing Concerned About Future Housing: No Difficulty Paying Gas/Electric Bills: No Difficulty Paying for Meds: No Currently Unemployed: No Education: Associate Degree Difficulty w/ Childcare or Family Care: No Living arrangements: with family Occupation/Education: unemployed Gender identity (if verbalized by the patient): Female Sexual Orientation (if Verbalized by the Patient): Straight or Heterosexual Spiritual care concerns: No Exam Narrative: EXAMINATION OF ORGAN SYSTEMS/BODY AREAS: Constitutional: Vital signs per nursing GENERAL: Extremely anxious and hyperventilating HEAD: Normal with no signs of head trauma. EYES: EOMI, conjunctiva normal ENT: Hearing grossly intact LUNGS: Hyperventilating, some end-expiratory wheezing bilaterally HEART: [Regular rate and rhythm] ABD: [Soft], [nontender to palpation] EXT: Normal range of motion SKIN: [No rashes or lesions.] NEURO: [Alert and oriented x 3. No gross focal sensory or strength deficits.] PSYCH: Anxious affect Course Vital Signs Vital signs: Vital Signs Pulse Oximetry 100 01/23/25 19:40 Oxygen Delivery Room Air 01/23/25 19:40 Pulse Rate 96 01/23/25 20:12 Respiratory Rate 28 H 01/23/25 20:12 Pulse Oximetry 100 01/23/25 19:40 Oxygen Delivery Room Air 01/23/25 19:40 MDM - SOB/Dyspnea MDM Narrative Medical decision making narrative: Patient history of COPD presents here with difficulty breathing, worsening for last 2 and half weeks, she also has chronic right hip pain. On exam, she is incredibly anxious, hyperventilating, does have some an x-ray wheezing. I will give her a dose of Ativan, for what I suspect to be part of a panic attack, and start her on breathing treatments. On re-evaluation, she does look much improved, wheezing resolving, I did discuss outpatient management with close follow-up however patient became anxious again and stated she felt she needed be admitted. This does seem reasonable with her age and risk factors, discussed with hospitalist for admission. Lab Data 01/23/25 20:09 01/23/25 19:58 Labs: Lab Results 01/23/25 01/23/25 01/23/25 Range/Units 19:58 20:09 20:10 WBC 11.0 H (4.5-10.0) K/mm3 RBC 4.35 (4.2-5.4) M/mm3 Hgb 14.1 (12.0-15.0) g/dL Hct 42.0 (37.0-47.0) % MCV 96.6 (80-100) fl MCH 32.4 (26-34) pg MCHC 33.6 (32-36) g/dl RDW 14.6 H (11.5-14.5) % Plt Count 341 (150-375) k/mm3 MPV 10.1 (7.4-10.4) fl Immature Gran % (Auto) 0.6 H (0-0.5) % Neut % (Auto) 71.3 (45.5-73.1) % Lymph % (Auto) 18.9 (18.3-44.2) % Mathews % (Auto) 6.8 (2.6-8.5) % Eos % (Auto) 1.9 (0-4.4) % Baso % (Auto) 0.5 (0.2-1.2) % Lymph # (Auto) 2.08 (0.9-3.2) K/mm3 Mathews # (Auto) 0.8 H (0.1-0.6) K/mm3 Eos # (Auto) 0.2 (0-0.3) K/mm3 Baso # (Auto) 0.1 (0.0-0.1) K/mm3 Abs Immat Gran (auto) 0.07 H (0.00-0.031) K/mm3 Absolute Neuts (auto) 7.8 H (1.3-6.7) K/mm3 Absolute Nucleated RBC 0.000 (0.0-0.012) K/mm3 Nucleated RBC % 0.0 (0.0-0.2) % Sodium 136 L (137-145) mmol/L Potassium 4.4 (3.4-5.0) mmol/L Chloride 104 (98-107) mmol/L Carbon Dioxide 19 L (22-30) mmol/L Anion Gap 13 H (4-12) mmol/L BUN 16 D (7-17) mg/dL Creatinine 1.12 H (0.7-1.0) mg/dL Estim Creat Clear Calc Not Reportable Estimated GFR 50 L (59 - ) Glucose 75 (65-110) mg/dL Lactic Acid 2.1 H (0.7-2.0) mmol/L Calcium 10.0 (8.4-10.2) mg/dL Magnesium 2.3 (1.6-2.3) mg/dL Total Bilirubin 0.9 (0.2-1.3) mg/dL AST 27 (14-36) U/L ALT 21 (6-35) U/L Alkaline Phosphatase 110 (38-126) U/L NT-Pro-B Natriuret Pep 117 H (19.9-100) pg/mL Total Protein 8.8 H (6.3-8.2) g/dL Albumin 5.0 (3.5-5.1) g/dL Discharge Plan Discharge Clinical Impression: Acute exacerbation of chronic obstructive pulmonary disease, Anxiety Patient Disposition: Still a Patient Condition: Stable Patient Language: Sinhala Prescriptions: No Action ropinirole 0.25 mg Tablet 0.25 mg PO HS albuterol sulfate [Ventolin HFA] 90 mcg/actuation Hfa Aerosol Inhaler 2 puff INHALATION QID PRN (Reason: Shortness Of Breath) rosuvastatin 20 mg Tablet 20 mg PO DAILY cholecalciferol (vitamin D3) [Vitamin D3] 25 mcg (1,000 unit) Tablet 25 mcg PO DAILY montelukast [Singulair] 10 mg tablet 10 mg PO HS metformin 500 mg tablet 500 mg PO DAILY losartan 50 mg tablet 50 mg PO DAILY clonidine HCl 0.1 mg tablet 0.1 mg PO HS furosemide 40 mg tablet 40 mg PO DAILY diltiazem HCl 360 mg capsule,extended release 24hr 360 mg PO DAILY loratadine 10 mg tablet 10 mg PO DAILY Januvia 50 mg tablet 50 mg PO DAILY acetaminophen 500 mg Tablet 1,000 mg PO Q6H PRN (Reason: Pain 1-3 or Fever) Qty: 30 0RF aspirin 81 mg capsule 81 mg PO DAILY polyethylene glycol 3350 [Miralax] 17 gram powder in packet 17 g PO DAILY 5 Days Qty: 14 0RF Rx Instructions: Take daily until you have a bowel movement Milo 290 mcg capsule See Rx Instructions .ROUTE .COMPLEX Qty: 30 3RF Dose Instruction: TAKE 1 CAPSULE BY MOUTH DAILY Patient Comments: PATIENT STATES SHE TAKES PRN Rx Instructions: TAKE 1 CAPSULE BY MOUTH DAILY pantoprazole 40 mg tablet,delayed release (DR/EC) See Rx Instructions .ROUTE .COMPLEX Qty: 60 3RF Dose Instruction: TAKE ONE (1) TABLET BY MOUTH TWICE DAILY Rx Instructions: TAKE ONE (1) TABLET BY MOUTH TWICE DAILY metoclopramide HCl 10 mg tablet See Rx Instructions .ROUTE .COMPLEX Qty: 90 3RF Dose Instruction: TAKE 1 TABLET BY MOUTH THREE TIMES DAILY Rx Instructions: TAKE 1 TABLET BY MOUTH THREE TIMES DAILY amitriptyline 50 mg tablet See Rx Instructions .ROUTE .COMPLEX Qty: 30 3RF Dose Instruction: TAKE 1 TABLET BY MOUTH AT BEDTIME Rx Instructions: TAKE 1 TABLET BY MOUTH AT BEDTIME budesonide-formoterol [Symbicort] 160-4.5 mcg/actuation HFA aerosol inhaler 2 puff INHALATION Q12H Spiriva Respimat 2.5 mcg/actuation mist 2 puff INHALATION BID Vitamin B-12 1,000 mcg/mL drops 1 ml PO DAILY fenofibrate micronized 134 mg capsule 134 mg PO DAILY Patient Comments: not d/c but hasn't taken in one month d/t lack of supply calcium carbonate [Calcium 600] 600 mg calcium (1,500 mg) tablet 600 mg PO DAILY ferrous sulfate [iron] 325 mg (65 mg iron) tablet 325 mg PO DAILY Patient Comments: BID Follow-up/Referrals: Jorge Luis Hill MD [Primary Care Provider, Family Practice]
[2025-01-23 21:10] VITALS: PULSE 101; RESP 24
[2025-01-23] MEDS: LORazepam (*CRX) 0.5 MG TABLET PO (21:24)
[2025-01-23] MEDS: MAGNESIUM SULF 2 GM/WATER 50ML 2 GM/50 ML BAG IVPB (21:24)
[2025-01-23 21:38] VITALS: BP 132/86; PULSE 110; RESP 22; O2SAT 96
--- NOTE | 2025-01-23 21:51 | WPCEDHO ---
ED Hand Off Checklist All vitals saved:yes IV Site documented:yes All med administrations documented:yes Triage Note Triage Note brought in from home by 01/23/25 19:40 for shortness of breath for couple of weeks Allergies No Known Allergies Allergy (Verified 01/15/25 00:18) Family History (Last Reviewed 01/15/25 @ 02:58 by Dany Reed MD) Father Diabetes mellitus Hypertension Mother Hypertension Other Arthritis Asthma Cancer Cerebrovascular accident Depression Family history of arthritis Family history of heart disease in male family member before age 55 Family history of lung disease High cholesterol Active Medications including assessments/comments Magnesium Sulfate (Magnesium Sulf 2 Gm/Water 50ml) 2 gm in 50 mls @ 25 mls/hr IVPB ONCE ONE Stop: 01/23/25 22:48 Last Admin: 01/23/25 21:24 Dose: 25 mls/hr Documented By: ODILIA Co-signed By: SERGEY Infusion/Titration Document 01/23/25 21:24 SRW (Rec: 01/23/25 21:25 SRW [id number]) Co-signed By Kaylie Kilpatrick RN Intake IV Site Peripheral Access Left Hand Container Volume 50 Waste Amount 0 Dosing Infusion Rate 25 Increase/Decrease Started Elapsed Time Elapsed Time ( 0m minutes) Magnesium Sulfate Infusion Document 01/23/25 21:24 SRW (Rec: 01/23/25 21:25 SRW [id number]) Co-signed By Kaylie Kilpatrick RN Infusion Action Magnesium Sulfate Initiated Infusion Action Administered/Completed Medications Discontinued Medications Levalbuterol HCl (Levalbuterol Neb 1.25 Mg/3 Ml) 5 mg INHALATION ONCE STA Stop: 01/23/25 19:45 Last Admin: 01/23/25 20:12 Dose: 5 mg Documented By: ALBERT Lorazepam (Lorazepam (*Crx) 0.5 Mg Tablet) 0.5 mg PO ONCE STA Stop: 01/23/25 19:55 Last Admin: 01/23/25 20:20 Dose: Not Given Documented By: W Non-Admin Reason: See Administration Comments Lorazepam (Lorazepam (*Crx) 0.5 Mg Tablet) 0.5 mg PO ONCE STA Stop: 01/23/25 20:51 Last Admin: 01/23/25 21:24 Dose: 0.5 mg Documented By: SRW Prednisone (Prednisone 20 Mg Tablet) 40 mg PO ONCE STA Stop: 01/23/25 19:45 Last Admin: 01/23/25 19:55 Dose: 40 mg Documented By: SRW Interventions/Assessments IV / Saline Lock, Insert Start: 01/23/25 19:40 Freq: Status: Active Protocol: Document 01/23/25 21:25 SRW (Rec: 01/23/25 21:25 SRW [id number]) IV Assessment Peripheral Access Left Hand Catheter Gauge 20 IV Insertion 1 Attempts Ultrasound Used for No Placement IV Site Assessment WNL IV Care and WNL Maintenance PA: Cardiovascular Assessment Start: 01/23/25 19:40 Freq: Status: Active Protocol: Document 01/23/25 19:40 SRW (Rec: 01/23/25 20:19 SRW [id number]) Cardiovascular Assessment Cardiovascular None Symptoms Skin Description Warm Heart Sounds Normal PA: Respiratory Assessment Start: 01/23/25 19:40 Freq: Status: Active Protocol: Document 01/23/25 19:40 SRW (Rec: 01/23/25 19:51 SRW [id number]) Respiratory Assessment Symptoms Congestion,Cough Effort Labored Pattern Tachypnea Depth Deep Chest Expansion Symmetrical Last Vital Signs Pulse Rate 110 H 01/23/25 21:38 Respiratory Rate 22 H 01/23/25 21:38 Pulse Oximetry 96 01/23/25 21:38 Blood Pressure 132/86 01/23/25 21:38 Blood Pressure Mean 101 01/23/25 21:38 Oxygen Delivery Room Air 01/23/25 19:40 Last Result - Abnormals Only WBC 11.0 K/mm3 (4.5-10.0) H 01/23/25 20:09 RDW 14.6 % (11.5-14.5) H 01/23/25 20:09 Immature Gran % (Auto) 0.6 % (0-0.5) H 01/23/25 20:09 Clay # (Auto) 0.8 K/mm3 (0.1-0.6) H 01/23/25 20:09 Abs Immat Gran (auto) 0.07 K/mm3 (0.00-0.031) H 01/23/25 20:09 Absolute Neuts (auto) 7.8 K/mm3 (1.3-6.7) H 01/23/25 20:09 Sodium 136 mmol/L (137-145) L 01/23/25 19:58 Carbon Dioxide 19 mmol/L (22-30) L 01/23/25 19:58 Anion Gap 13 mmol/L (4-12) H 01/23/25 19:58 Creatinine 1.12 mg/dL (0.7-1.0) H 01/23/25 19:58 Estimated GFR 50 (59-) L 01/23/25 19:58 Lactic Acid 2.1 mmol/L (0.7-2.0) H 01/23/25 20:10 NT-Pro-B Natriuret Pep 117 pg/mL (19.9-100) H 01/23/25 19:58 Total Protein 8.8 g/dL (6.3-8.2) H 01/23/25 19:58 Most Recent Suicide Severity Rating Suicide Severity Rating NO RISK INDICATED 01/23/25 19:40
[2025-01-23 22:07] VITALS: BMI 25.6
--- NOTE | 2025-01-23 22:24 | ADMGEN ---
This patient, Bev Grossman, was admitted to [facility] Surg Room 301-01. Patient/family oriented to hospital policies and general routines including ID bracelet, bed and alarms, visiting hours, pain management, procedures, bathroom and other care routines, personal items, smoking policy, room service/diet, and visiting hours. Information on how to activate the Rapid Response Team has been discussed. Patient/Family are encouraged to report perceived risks to care and to ask questions if they do not understand what they are told or what they should do.
--- NOTE | 2025-01-23 22:28 | PM.IMHP ---
H&P: HPI History of Present Illness Date/Time: 01/23/25 22:28 Chief Complaint: Shortness of breath Narrative: This is a 59 year old female patient with a history of COPD who came into the emergency room tonight complaining of increased difficulty breathing. She also stated that she has lost her voice several weeks ago. The patient has been having increased shortness of breath over the last 2 weeks. She denies any fever or chills. She was also complaining of chronic right hip pain. She stated that she has been using her routine medications which did not resolve her shortness of breath. Her O2 saturation was 96-100% on room air respirations were 22. Her abnormal labs include white count was noted to be 11.0. Sodium 136, carbon dioxide 19, anion gap 13, creatinine 1.2 trauma GFR 50, and BNP 117. Chest x-ray consistent with COPD without any consolidation noted. The patient was very anxious and hyperventilating in the emergency room. She was given Ativan in the ER. She was also given a nebulizer treatment, prednisone, and magnesium in the emergency room. The patient stated that she did have some relief. The patient is being admitted to observation status on the date of service of 01/23/2025. Review of Systems Constitutional: Constitutional: Reports as per HPI and Reports no additional constitutional complaints Eyes: Eyes: Reports as per HPI and Reports no additional eye complaints ENT: Reports no additional ear, nose, mouth, and throat complaints and Reports Normal hearing present Cardiovascular: Cardiovascular: Reports no additional cardiovascular complaints Respiratory: Respiratory: Reports as per HPI and Reports no additional respiratory complaints Gastrointestinal: Gastrointestinal: Reports as per HPI and Reports no additional gastrointestinal complaints Genitourinary: Genitourinary: Reports no additional female genitourinary complaints Musculoskeletal: Musculoskeletal: Reports no additional musculoskeletal complaints Integumentary/Breasts: Skin/Breast: Reports system reviewed and no additional complaints, except as docu Neurologic: Reports no additional neurologic complaints and Reports Normal hearing present Psychiatric: Psychiatric: Reports no additional psychiatric complaints and Reports as per HPI Hematologic/Lymphatic: Hematologic/Lymphatic: Reports no additional hematologic/lymphatic complaints Allergic/Immunologic: Allergic/Immunologic: Reports no additional allergic/immunologic complaints [facility] Past Medical History Medical History (Updated 01/24/25 @ 01:51 by eBv Antonio APRN) DM2 (diabetes mellitus, type 2) PTSD (post-traumatic stress disorder) Rheumatoid arthritis Diverticulosis Congestive heart failure Sacroiliitis Diabetes CVA (cerebral vascular accident) Depression Hyperlipemia Hypertension COPD (chronic obstructive pulmonary disease) Anxiety Arthritis Gastritis Asthma ELIOT (obstructive sleep apnea) Lumbar radiculopathy Folliculitis Surgical History Surgical History (Updated 01/24/25 @ 00:55 by Bev Antonio APRN) H/O jaw surgery History of delivery S/P PASTRY BAKER shunt H/O removal of cyst brain, unable to remove due to cyst being wrapped around spinal cord. H/O: hysterectomy H/O cardiac catheterization Family History Family History Father Diabetes mellitus Hypertension Mother Hypertension Other Arthritis Asthma Cancer Cerebrovascular accident Depression Family history of arthritis Family history of heart disease in male family member before age 55 Family history of lung disease High cholesterol Social History Social History (Updated 01/24/25 @ 00:58 by Bev Antonio APRN) Social History: She is and currently lives in a hotel with her significant other. She has 2 children. She is disabled. Code status full code Smoking packs per day: 1.5 Smoking cigarettes per day: 30.0 Years smoked: 48 Smoking pack-years: 72.00 Tobacco type: cigarettes Second hand tobacco smoke exposure: Yes Smoking end date: 01/28/24 Additional smoking assessment comments: QUIT 2023 Alcohol intake: former Substance use: never Substance use type: does not use Lack of Transportation: YES Lack of Food: Sometimes True Current Housing: I Do Not Have Housing Concerned About Future Housing: No Difficulty Paying Gas/Electric Bills: No Difficulty Paying for Meds: No Currently Unemployed: No Education: Associate Degree Difficulty w/ Childcare or Family Care: No Living arrangements: with family Occupation/Education: unemployed Gender identity (if verbalized by the patient): Female Sexual Orientation (if Verbalized by the Patient): Straight or Heterosexual Spiritual care concerns: No Meds Home Medications and Allergies Home Medications ?Medication ?Instructions ?Recorded ?Confirmed ?Type montelukast 10 mg tablet 10 mg PO HS 12/09/19 01/23/25 History (Singulair) metformin 500 mg tablet 500 mg PO DAILY 06/07/21 01/23/25 History clonidine HCl 0.1 mg tablet 0.1 mg PO HS 09/25/21 01/23/25 History furosemide 40 mg tablet 40 mg PO DAILY 09/25/21 01/23/25 History losartan 50 mg tablet 50 mg PO DAILY 09/25/21 01/23/25 History albuterol sulfate 90 mcg/actuation 2 puff inhalation QID PRN 12/10/21 01/23/25 History aerosol inhaler (Ventolin HFA) Shortness Of Breath ropinirole 0.25 mg tablet 0.25 mg PO HS 12/10/21 01/23/25 History rosuvastatin 20 mg tablet 20 mg PO DAILY 12/10/21 01/23/25 History diltiazem HCl 360 mg 360 mg PO DAILY 07/07/23 01/23/25 History capsule,extended release 24 hr loratadine 10 mg tablet 10 mg PO DAILY 07/07/23 01/23/25 History sitagliptin phosphate 50 mg tablet 50 mg PO DAILY 07/07/23 01/23/25 History (Januvia) acetaminophen 500 mg tablet 1,000 mg (2 x 500 mg) PO Q6H PRN 07/08/23 01/23/25 Rx Pain 1-3 or Fever #30 tabs aspirin 81 mg capsule 81 mg PO DAILY 03/18/24 01/23/25 History budesonide-formoterol HFA 160 2 puff inhalation Q12H 07/23/24 01/23/25 History mcg-4.5 mcg/actuation aerosol inhaler (Symbicort) tiotropium bromide 2.5 2 puff inhalation BID 07/23/24 01/23/25 History mcg/actuation mist for inhalation (Spiriva Respimat) calcium carbonate (Calcium 600) 600 mg PO DAILY 10/29/24 01/23/25 History ferrous sulfate 325 mg (65 mg 325 mg PO DAILY 10/29/24 01/23/25 History iron) tablet (iron) metoclopramide HCl 10 mg tablet See Rx Instructions .Route 11/01/24 01/23/25 Rx .COMPLEX #90 tabs pantoprazole 40 mg tablet,delayed See Rx Instructions .Route 11/01/24 01/23/25 Rx release .COMPLEX #60 tabs amitriptyline 50 mg tablet See Rx Instructions .Route 11/18/24 01/23/25 Rx .COMPLEX #30 tabs polyethylene glycol 3350 17 gram 17 g PO DAILY 5 days #14 ea 01/15/25 01/23/25 Rx oral powder packet (Miralax) escitalopram oxalate 20 mg tablet 20 mg PO DAILY 01/24/25 01/24/25 History gabapentin 300 mg capsule 300 mg PO Q8H 01/24/25 01/24/25 History quetiapine 100 mg tablet (Seroquel) 100 mg PO DAILY 01/24/25 01/24/25 History quetiapine 400 mg tablet 400 mg PO HS 01/24/25 01/24/25 History Allergies Allergy/AdvReac Type Severity Reaction Status Date / Time No Known Allergies Allergy Verified 01/23/25 22:25 Vital Signs Vital Signs - 24 hr 01/23/25 19:40 01/23/25 20:12 01/23/25 21:10 Pulse Rate 96 101 H Respiratory Rate 28 H 24 H Blood Pressure Pulse Oximetry 100 Oxygen Delivery Room Air 01/23/25 21:38 Pulse Rate 110 H Respiratory Rate 22 H Blood Pressure 132/86 Pulse Oximetry 96 Oxygen Delivery Exam Const: General: cooperative, comfortable, no acute distress, well developed, awake, Physically active, average body habitus and well nourished Nutritional Appearance: average body habitus and well nourished Orientation/consciousness: oriented to person, oriented to place, oriented to time and patient oriented x3 Limitations: no limitations HENMT: Head: normal to inspection, No palpable skull fracture present, normocephalic, atraumatic and abrasion Ears: hearing grossly normal bilaterally Eyes: General: appearance normal, both eyes and all related structures Alignment and Position: alignment normal Periorbital: periorbital findings normal Neck: Neck: normal visual inspection, full ROM, no lymphadenopathy and trachea midline Resp: Effort & Inspection: normal respiratory effort Auscultation: clear to auscultation bilaterally Percussion: percussion normal Cardio: Palpation: normal PMI Rate: regular rate Rhythm: regular rhythm Peripheral pulses: Peripheral pulses 2+ throughout GI: Inspection: normal to inspection Percussion: Yes normal to percussion Back/Spine/Pelvis: Back: no CVA tenderness Cervical Spine: cervical ROM normal Skin: General skin exam: normal color Lesions: no lesions Rashes: no rashes Trauma: no lacerations or abrasions Wounds: no wounds Hair: normal Nails: normal Neuro: General: oriented to person, oriented to place, oriented to time and patient oriented x3 Cranial nerves: Yes Equal, round and reactive pupils present and Yes Normal hearing present Cognition (Neuro): normal cognition Speech: normal speech Gait exam (Neuro): Normal gait present Motor exam (neuro): 5/5 motor strength present throughout Sensory Exam: normal sensation Extrem: General: normal to inspection Right upper extremity: normal to inspection and shoulder/upper arm Left upper extremity: normal to inspection and shoulder/upper arm Right lower extremity: normal to inspection Left lower extremity: normal to inspection Psych: Appearance: grossly normal Mental Status: mental status grossly normal Speech and movement: Normal speech and movement present Attitude: cooperative Thought process: Normal thought process present Thought content: Yes Normal thought content present H&P: Results Labs Labs: Short CBC 01/23/25 Range/Units 20:09 WBC 11.0 H (4.5-10.0) K/mm3 Hgb 14.1 (12.0-15.0) g/dL Hct 42.0 (37.0-47.0) % Plt Count 341 (150-375) k/mm3 BMP 01/23/25 19:58 Sodium 136 L Potassium 4.4 Chloride 104 Carbon Dioxide 19 L BUN 16 D Creatinine 1.12 H Glucose 75 Calcium 10.0 Liver Function 01/23/25 Range/Units 19:58 Total Bilirubin 0.9 (0.2-1.3) mg/dL AST 27 (14-36) U/L ALT 21 (6-35) U/L Alkaline Phosphatase 110 (38-126) U/L Albumin 5.0 (3.5-5.1) g/dL ECG Interpretation: MN 161 QRSd 76 QT 343 QTc 453 --[place]-- P 77 QRS 90 T 66 SINUS TACHYCARDIA POSSIBLE LEFT ATRIAL ENLARGEMENT [-0.1mV P-WAVE IN V1/V2] MODERATE ST DEPRESSION [0.05+ mV ST DEPRESSION] Compared to ECG 01/15/2025 04:37:45 ST (T wave) deviation now present Sinus rhythm no longer present Imaging Chest x-ray: Radiologist's impression: Impressions Chest X-Ray 01/24/25 06:17 IMPRESSION: 1. No acute cardiopulmonary findings given portable technique. Assessment and Plan Assessment and plan (1) Acute exacerbation of chronic obstructive pulmonary disease: Code(s): J44.1 - Chronic obstructive pulmonary disease with (acute) exacerbation Status: Acute Assessment and Plan: -the patient was started on p.o. prednisone. -DuoNebs were added. -Spiriva on hold at this time while on DuoNebs. -continue with Symbicort -keep O2 saturations greater than 90% she is currently on room air. -continue with Singulair. -chest x-ray was read by Radiology as no acute process. -continue to monitor respirations as per nursing protocol (2) DM2 (diabetes mellitus, type 2): Code(s): E11.9 - Type 2 diabetes mellitus without complications Status: Acute Assessment and Plan: -Accu-Cheks AC and HS with sliding scale insulin and hypoglycemic protocol. -her A1c is 5.9. -her blood sugars may be higher now that she is on prednisone. -metformin is on hold at this time. -continue with Januvia. (3) Anxiety: Code(s): F41.9 - Anxiety disorder, unspecified Status: Acute Assessment and Plan: -continue with Lexapro -continue with Seroquel please verify her dose each with the pharmacy in the a.m.. (4) PTSD (post-traumatic stress disorder): Code(s): F43.10 - Post-traumatic stress disorder, unspecified Status: Acute Assessment and Plan: -continue Lexapro. (5) Hypertension: Code(s): I10 - Essential (primary) hypertension Status: Acute Assessment and Plan: -continue with losartan for now and adjust according to blood pressure readings. -blood pressure currently 132/86. -routine vital signs as per staff nursing staff (6) Congestive heart failure: Code(s): I50.9 - Heart failure, unspecified Status: Acute Assessment and Plan: -the patient does not appear to be in fluid overload at this time. -continue with Lasix -last echo performed here was 09/25/2021 which shows an EF of 55-60% with grade 1 diastolic dysfunction. (7) Hyperlipemia: Code(s): E78.5 - Hyperlipidemia, unspecified Status: Acute Assessment and Plan: -continue with rosuvastatin (8) GERD (gastroesophageal reflux disease): Qualifiers: Esophagitis presence: without esophagitis Qualified Code(s): K21.9 - Gastro-esophageal reflux disease without esophagitis Code(s): K21.9 - Gastro-esophageal reflux disease without esophagitis Status: Acute Assessment and Plan: -Continue with Protonix and Tums (9) Chronic pain associated with significant psychosocial dysfunction: Code(s): G89.4 - Chronic pain syndrome Status: Acute Assessment and Plan: -continue with gabapentin and please verify dose each in the a.m.. -[facility] (10) Depression: Code(s): F32.A - Depression, unspecified Status: Acute Assessment and Plan: -continue with amitriptyline -continue with Seroquel but please verify dosage. -continue with Lexapro Quality VTE Prophylaxis VTE prophylaxis: mechanical ordered
[2025-01-23 22:36] VITALS: PULSE 110; RESP 22; O2SAT 96
[2025-01-24] VITALS (14 sets, daily range): BP systolic 101–128; BP diastolic 62–86; PULSE 83–112; RESP 12–20; TEMP 36.2–36.3; O2SAT 97–98
[2025-01-24 00:24] LABS: Hemoglobin A1C 5.9 % (<5.7)
[2025-01-24] MEDS: MONTELUKAST SODIUM 10 MG TABLET PO ×2 (00:59→20:10)
[2025-01-24] MEDS: AMITRIPTYLINE HCL 25 MG TABLET BY MOUTH ×2 (00:59→20:10)
[2025-01-24] MEDS: IPRATROPIUM 0.5 MG/ALBUTEROL SULFATE 2.5 MG (BASE) AMPUL.NEB 3 ML INHALATION ×4 (02:05→19:52)
[2025-01-24] MEDS: ACETAMINOPHEN 500 MG TABLET 1000 MG PO (02:10)
[2025-01-24] MEDS: GABAPENTIN 300 MG CAPSULE PO ×3 (06:09→20:10)
[2025-01-24 06:19] LABS: Hematocrit 39.4 % (37.0-47.0); Hemoglobin 13.0 g/dL (12.0-15.0); Mean Corpuscular HGB Conc 33.0 g/dl (32-36); Mean Corpuscular Hemoglobin 32.1 pg (26-34); Mean Corpuscular Volume 97.3 fl (80-100); Platelet Count Result 291 k/mm3 (150-375); Red Blood Count 4.05 M/mm3 (4.2-5.4); White Blood Count 7.3 K/mm3 (4.5-10.0)
[2025-01-24 06:58] LABS: Anion Gap 12 mmol/L (4-12); Blood Urea Nitrogen 19 mg/dL (7-17); Calcium 9.5 mg/dL (8.4-10.2); Carbon Dioxide 21 mmol/L (22-30); Chloride 103 mmol/L (98-107); Estimated CRCL calculation 41 ml/min; Estimated Glomerular Filt Rate 49; Glucose 144 mg/dL (65-110); Potassium 3.8 mmol/L (3.4-5.0); Sodium 136 mmol/L (137-145)
[2025-01-24] MEDS: FLUTICASONE/SALMETEROL 115-21 MCG INHALER 1 PUFF 2 PUFF INHALATION ×2 (07:01→19:52)
--- NOTE | 2025-01-24 07:46 | P.PNIM_ITS ---
Progress Note: A&P Assessment and Plan (1) Acute exacerbation of chronic obstructive pulmonary disease: Code(s): J44.1 - Chronic obstructive pulmonary disease with (acute) exacerbation Status: Acute Assessment and Plan: - presented with increased SOB, productive cough - CXR with no acute process - no hypoxia - afebrile without leukocytosis - home Spiriva held. Continue home Symbicort - continue scheduled nebs, Po prednisone, azithromycin, mucinex, pulmonary hygiene. Start doxycycline. - monitor respiratory status (2) DM2 (diabetes mellitus, type 2): Code(s): E11.9 - Type 2 diabetes mellitus without complications Status: Acute Assessment and Plan: - last HgbA1c - 5.9 01/23 - hold home PO meds - continue low dose SSI - POCT glucose qACHS - hypoglycemia management protocol (3) Anxiety: Code(s): F41.9 - Anxiety disorder, unspecified Status: Acute Assessment and Plan: -continue home Lexapro, Seroquel (4) PTSD (post-traumatic stress disorder): Code(s): F43.10 - Post-traumatic stress disorder, unspecified Status: Acute Assessment and Plan: -continue Lexapro. (5) Hypertension: Code(s): I10 - Essential (primary) hypertension Status: Acute Assessment and Plan: - BP stable -continue losartan (6) Congestive heart failure: Code(s): I50.9 - Heart failure, unspecified Status: Acute Assessment and Plan: -echo 09/25/2021 which shows an EF of 55-60% with grade 1 diastolic dysfunction. -appears euvolemic -continue Lasix (7) Hyperlipemia: Code(s): E78.5 - Hyperlipidemia, unspecified Status: Acute Assessment and Plan: -continue rosuvastatin (8) Chronic pain associated with significant psychosocial dysfunction: Code(s): G89.4 - Chronic pain syndrome Status: Acute Assessment and Plan: -continue with gabapentin, nursing to verify dosing -the [facility]. (9) Depression: Code(s): F32.A - Depression, unspecified Status: Acute Assessment and Plan: -continue with amitriptyline, Seroquel, Lexapro - nursing to verify dosing Plan DVT prophylaxis: SCDs, Lovenox Code status:full code Dispo:home Subjective Date/time seen: 01/24/25 07:46 Interval history: 59 year old female patient with a history of COPD who came into the emergency room tonight complaining of increased difficulty breathing. Patient seen and examined at bedside. Breathing improved from admission. Still complaining of sore throat hoarseness. Still feeling anxious about going home. Discussed still remaining in the hospital for 1 more night to monitor O2 sat and continue breathing treatments with plans for discharge tomorrow. Review of Systems Review of Systems: All systems reviewed & are unremarkable except as noted in HPI and below Exam Narrative: General: NAD, appears older than stated age Eyes: EOMI ENT: neck supple Cardiovascular: Regular rate and rhythm Respiratory: occasional upper airway rhonchi cleared with cough, respirations even and unlabored on RA Gastrointestinal: Soft, non tender Genitourinary: no suprapubic tenderness Musculoskeletal: No edema Skin: warm, dry Neuro: Alert. Psych: Mood appropriate Objective Data Vital Signs Vital Signs: Vital Signs - 24 hr 01/23/25 19:40 01/23/25 20:12 01/23/25 21:10 Temperature Pulse Rate 96 101 H Respiratory Rate 28 H 24 H Blood Pressure Pulse Oximetry 100 Oxygen Delivery Room Air Fraction of Inspired Oxygen 01/23/25 21:38 01/23/25 22:36 01/24/25 00:10 Temperature Pulse Rate 110 H 110 H 112 H Respiratory Rate 22 H 22 H Blood Pressure 132/86 Pulse Oximetry 96 96 97 Oxygen Delivery Room Air Autopap Fraction of Inspired Oxygen 01/24/25 02:05 01/24/25 02:13 01/24/25 04:05 Temperature 97.3 F L Pulse Rate 87 89 97 Respiratory Rate 18 20 18 Blood Pressure 128/86 Pulse Oximetry 98 Oxygen Delivery Fraction of Inspired Oxygen 01/24/25 07:02 01/24/25 07:03 Temperature Pulse Rate 87 87 Respiratory Rate 18 18 Blood Pressure Pulse Oximetry 97 Oxygen Delivery Room Air Fraction of Inspired Oxygen 21 Intake/Output Intake/Output: Intake & Output 01/21/25 01/22/25 01/23/25 01/24/25 23:59 23:59 23:59 23:59 Intake Total 530 750 Balance 530 750 Meds/Results Medications: Active Medications Generic Name Dose Route Start Last Admin Trade Name Freq PRN Reason Stop Dose Admin Acetaminophen 1,000 mg 01/24/25 00:25 01/24/25 02:10 Acetaminophen 500 Mg Tablet PO 1,000 mg Q6H PRN Administration Pain 1-3 or Fever Albuterol/Ipratropium 3 ml 01/24/25 02:00 01/24/25 07:01 Ipratropium 0.5 Mg/Albuterol Sulfate 2.5 Mg (Base) Ampul.Neb 3 Ml INHALATION 3 ml Q6HRT LORENE Administration Amitriptyline HCl 25 mg 01/24/25 00:25 01/24/25 00:59 Amitriptyline Hcl 25 Mg Tablet BY MOUTH 25 mg HS LORENE Administration Aspirin 81 mg 01/24/25 09:00 Aspirin 81 Mg Enteric Tablet PO QAM LORENE Calcium Carbonate 500 mg 01/24/25 09:00 Calcium Carbonate (Oscal) 500 Mg Tablet PO QAM LORENE Clonidine HCl 0.1 mg 01/24/25 00:35 01/24/25 00:59 Clonidine Hcl 0.1 Mg Tablet PO 0.1 mg HS LORENE Administration Dextrose 12.5 gm 01/23/25 23:52 Dextrose 50% 25 Gm/50 Ml Syringe IV PUSH PRN PRN Hypoglycemia Protocol Diltiazem HCl 360 mg 01/24/25 09:00 Diltiazem Hcl Cd 180 Mg Cap.24hr PO QAM LORENE Escitalopram Oxalate 20 mg 01/24/25 09:00 Escitalopram Oxalate 10 Mg Tablet PO DAILY [facility] Ferrous Sulfate 325 mg 01/24/25 09:00 Ferrous Sulfate 325 Mg Tablet BY MOUTH DAILY [facility] Furosemide 40 mg 01/24/25 09:00 Furosemide 40 Mg Tablet PO DAILY [facility] Gabapentin 300 mg 01/24/25 06:00 01/24/25 06:09 Gabapentin 300 Mg Capsule PO 300 mg Q8HR LORENE Administration Glucagon 1 mg 01/23/25 23:52 Glucagon For Inj 1 Mg Vial IM PRN PRN Hypoglycemia Protocol Glucose 15 gm 01/23/25 23:52 Glucose Oral Gel 15 Gm Of Glucse In 37.5 Gm Tube PO PRN PRN Hypoglycemia Protocol Dextrose 1,000 mls @ 100 mls/hr 01/23/25 23:52 Dextrose 5% 1,000 Ml IVPB PRN PRN Hypoglycemia Protocol Insulin Aspart 2 - 5 units 01/24/25 08:00 Insulin Aspart (*Bkc) 100 Units/Ml SUB-Q TIDWM [facility] Protocol Loratadine 10 mg 01/24/25 09:00 Loratadine 10 Mg Tablet PO DAILY [facility] Losartan Potassium 50 mg 01/24/25 09:00 Losartan Potassium 50 Mg Tablet PO DAILY [facility] Metoclopramide HCl 10 mg 01/24/25 09:00 Metoclopramide Hcl 10 Mg Tablet BY MOUTH TID [facility] Montelukast Sodium 10 mg 01/24/25 00:35 01/24/25 00:59 Montelukast Sodium 10 Mg Tablet PO 10 mg HS [facility] Administration Pantoprazole Sodium 40 mg 01/24/25 09:00 Pantoprazole 40 Mg Tablet BY MOUTH BID [facility] Polyethylene Glycol 17 gm 01/24/25 09:00 Polyethylene Glycol 3350 17 Gm Powd.Pack PO DAILY [facility] Prednisone 40 mg/ Prednisone 50 mg 01/24/25 08:00 10 mg PO DAILY@0800 [facility] Quetiapine Fumarate 100 mg 01/24/25 09:00 Quetiapine Fumarate 100 Mg Tablet PO DAILY [facility] Ropinirole HCl 0.25 mg 01/24/25 00:35 01/24/25 00:59 Ropinirole Hcl 0.25 Mg Tablet PO 0.25 mg HS [facility] Administration Rosuvastatin Calcium 20 mg 01/24/25 09:00 Rosuvastatin 20 Mg Tablet PO DAILY [facility] Fluticasone/Salmeterol 2 puff 01/24/25 08:00 01/24/25 07:01 Fluticasone/Salmeterol 115-21 Mcg Inhaler 1 Puff INHALATION 2 puff Q12HRT [place] Administration Sitagliptin Phosphate 50 mg 01/24/25 09:00 Sitagliptin Phosphate 50 Mg Tablet PO DAILY [facility] Radiology Results: ITS Impressions Chest X-Ray 01/24/25 06:17 IMPRESSION: 1. No acute cardiopulmonary findings given portable technique. Labs Labs: Laboratory Results - last 24 hr 01/23/25 01/23/25 01/23/25 19:58 20:09 20:10 WBC 11.0 H RBC 4.35 Hgb 14.1 Hct 42.0 MCV 96.6 MCH 32.4 MCHC 33.6 RDW 14.6 H Plt Count 341 MPV 10.1 Immature Gran % (Auto) 0.6 H Neut % (Auto) 71.3 Lymph % (Auto) 18.9 [place] % (Auto) 6.8 Eos % (Auto) 1.9 Baso % (Auto) 0.5 Lymph # (Auto) 2.08 [place] # (Auto) 0.8 H Eos # (Auto) 0.2 Baso # (Auto) 0.1 Abs Immat Gran (auto) 0.07 H Absolute Neuts (auto) 7.8 H Absolute Nucleated RBC 0.000 Nucleated RBC % 0.0 Sodium 136 L Potassium 4.4 Chloride 104 Carbon Dioxide 19 L Anion Gap 13 H BUN 16 D Creatinine 1.12 H Estim Creat Clear Calc Not Reportable Estimated GFR 50 L Glucose 75 POC Capillary Glucose Hemoglobin A1c 5.9 H Lactic Acid 2.1 H Calcium 10.0 Magnesium 2.3 Total Bilirubin 0.9 AST 27 ALT 21 Alkaline Phosphatase 110 NT-Pro-B Natriuret Pep 117 H Total Protein 8.8 H Albumin 5.0 01/23/25 01/24/25 01/24/25 22:21 05:46 07:32 WBC 7.3 RBC 4.05 L Hgb 13.0 Hct 39.4 MCV 97.3 MCH 32.1 MCHC 33.0 RDW 14.6 H Plt Count 291 MPV 10.2 Immature Gran % (Auto) Neut % (Auto) Lymph % (Auto) [place] % (Auto) Eos % (Auto) Baso % (Auto) Lymph # (Auto) [place] # (Auto) Eos # (Auto) Baso # (Auto) Abs Immat Gran (auto) Absolute Neuts (auto) Absolute Nucleated RBC Nucleated RBC % Sodium 136 L Potassium 3.8 Chloride 103 Carbon Dioxide 21 L Anion Gap 12 BUN 19 H Creatinine 1.14 H Estim Creat Clear Calc 41 Estimated GFR 49 L Glucose 144 H POC Capillary Glucose 186 H Hemoglobin A1c Lactic Acid 1.0 Calcium 9.5 Magnesium Total Bilirubin AST ALT Alkaline Phosphatase NT-Pro-B Natriuret Pep Total Protein Albumin Quality VTE Prophylaxis VTE prophylaxis: mechanical ordered
[2025-01-24] MEDS: ESCITALOPRAM OXALATE 10 MG TABLET 20 MG PO (09:04)
[2025-01-24] MEDS: predniSONE 40 MG, predniSONE 10 MG 50 MG PO (09:04)
[2025-01-24] MEDS: ASPIRIN 81 MG ENTERIC TABLET PO (09:05)
[2025-01-24] MEDS: ROSUVASTATIN 20 MG TABLET PO (09:05)
[2025-01-24] MEDS: CALCIUM CARBONATE (OSCAL) 500 MG TABLET PO (09:05)
[2025-01-24] MEDS: FUROSEMIDE 40 MG TABLET PO (09:05)
[2025-01-24] MEDS: FERROUS SULFATE 325 MG TABLET BY MOUTH (09:05)
[2025-01-24] MEDS: LOSARTAN POTASSIUM 50 MG TABLET PO (09:05)
[2025-01-24] MEDS: dilTIAZem HCL CD 180 MG CAP.24HR 360 MG PO (09:05)
[2025-01-24] MEDS: LORATADINE 10 MG TABLET PO (09:05)
[2025-01-24] MEDS: PANTOPRAZOLE 40 MG TABLET BY MOUTH ×2 (09:05→17:36)
[2025-01-24] MEDS: METOCLOPRAMIDE HCL 10 MG TABLET BY MOUTH ×3 (09:15→17:36)
[2025-01-24] MEDS: DOXYCYCLINE HYCLATE 100 MG TABLET PO ×2 (12:16→20:10)
[2025-01-24] MEDS: INSULIN ASPART (*BKC) 100 UNITS/ML SUB-Q (17:35)
[2025-01-25] VITALS (10 sets, daily range): BP systolic 123; BP diastolic 61; PULSE 70–87; RESP 15–19; TEMP 36.1; O2SAT 94–98
[2025-01-25] MEDS: IPRATROPIUM 0.5 MG/ALBUTEROL SULFATE 2.5 MG (BASE) AMPUL.NEB 3 ML INHALATION ×3 (02:01→13:45)
[2025-01-25] MEDS: GABAPENTIN 300 MG CAPSULE PO (05:13)
[2025-01-25 06:31] LABS: Hematocrit 36.7 % (37.0-47.0); Hemoglobin 12.2 g/dL (12.0-15.0); Mean Corpuscular HGB Conc 33.2 g/dl (32-36); Mean Corpuscular Hemoglobin 32.5 pg (26-34); Mean Corpuscular Volume 97.9 fl (80-100); Platelet Count Result 260 k/mm3 (150-375); Red Blood Count 3.75 M/mm3 (4.2-5.4); White Blood Count 12.4 K/mm3 (4.5-10.0)
[2025-01-25 06:48] LABS: Anion Gap 7 mmol/L (4-12); Blood Urea Nitrogen 24 mg/dL (7-17); Calcium 10.0 mg/dL (8.4-10.2); Carbon Dioxide 26 mmol/L (22-30); Chloride 106 mmol/L (98-107); Estimated CRCL calculation 37 ml/min; Estimated Glomerular Filt Rate 44; Glucose 148 mg/dL (65-110); Potassium 3.5 mmol/L (3.4-5.0); Sodium 139 mmol/L (137-145)
[2025-01-25] MEDS: CALCIUM CARBONATE (OSCAL) 500 MG TABLET PO (09:17)
[2025-01-25] MEDS: ROSUVASTATIN 20 MG TABLET PO (09:17)
[2025-01-25] MEDS: FERROUS SULFATE 325 MG TABLET BY MOUTH (09:17)
[2025-01-25] MEDS: PANTOPRAZOLE 40 MG TABLET BY MOUTH (09:17)
[2025-01-25] MEDS: ASPIRIN 81 MG ENTERIC TABLET PO (09:17)
[2025-01-25] MEDS: METOCLOPRAMIDE HCL 10 MG TABLET BY MOUTH ×2 (09:18→12:52)
[2025-01-25] MEDS: LORATADINE 10 MG TABLET PO (09:18)
[2025-01-25] MEDS: FUROSEMIDE 40 MG TABLET PO (09:18)
[2025-01-25] MEDS: DOXYCYCLINE HYCLATE 100 MG TABLET PO (09:18)
[2025-01-25] MEDS: dilTIAZem HCL CD 180 MG CAP.24HR 360 MG PO (09:19)
[2025-01-25] MEDS: ENOXAPARIN 40 MG/0.4 ML SYRINGE SUB-Q (09:19)
[2025-01-25] MEDS: ESCITALOPRAM OXALATE 10 MG TABLET 20 MG PO (09:19)
[2025-01-25] MEDS: LOSARTAN POTASSIUM 50 MG TABLET PO (09:19)
[2025-01-25] MEDS: FLUTICASONE/SALMETEROL 115-21 MCG INHALER 1 PUFF 2 PUFF INHALATION (09:46)
--- NOTE | 2025-01-25 10:31 | P.DS_ITS ---
DS: Admitting Diagnosis Discharge Date 01/25/2025 Admitting Diagnosis COPD exacerbation DS: Discharge Diagnosis Discharge Diagnosis (1) Acute exacerbation of chronic obstructive pulmonary disease: Code(s): J44.1 - Chronic obstructive pulmonary disease with (acute) exacerbation Status: Acute (2) DM2 (diabetes mellitus, type 2): Code(s): E11.9 - Type 2 diabetes mellitus without complications Status: Acute (3) Anxiety: Code(s): F41.9 - Anxiety disorder, unspecified Status: Acute (4) PTSD (post-traumatic stress disorder): Code(s): F43.10 - Post-traumatic stress disorder, unspecified Status: Acute (5) Hypertension: Code(s): I10 - Essential (primary) hypertension Status: Acute (6) Congestive heart failure: Code(s): I50.9 - Heart failure, unspecified Status: Acute (7) Hyperlipemia: Code(s): E78.5 - Hyperlipidemia, unspecified Status: Acute (8) GERD (gastroesophageal reflux disease): Qualifiers: Esophagitis presence: without esophagitis Qualified Code(s): K21.9 - Gastro-esophageal reflux disease without esophagitis Code(s): K21.9 - Gastro-esophageal reflux disease without esophagitis Status: Acute (9) Chronic pain associated with significant psychosocial dysfunction: Code(s): G89.4 - Chronic pain syndrome Status: Acute (10) Depression: Code(s): F32.A - Depression, unspecified Status: Acute DS: Summary Hospital Course Reason for hospitalization: Shortness of breath Hospital Course: Per HPI: This is a 59 year old female patient with a history of COPD who came into the emergency room tonight complaining of increased difficulty breathing. She also stated that she has lost her voice several weeks ago. The patient has been having increased shortness of breath over the last 2 weeks. She denies any fever or chills. She was also complaining of chronic right hip pain. She stated that she has been using her routine medications which did not resolve her shortness of breath. Her O2 saturation was 96-100% on room air respirations were 22. Her abnormal labs include white count was noted to be 11.0. Sodium 136, carbon dioxide 19, anion gap 13, creatinine 1.2 trauma GFR 50, and BNP 117. Chest x-ray consistent with COPD without any consolidation noted. The patient was very anxious and hyperventilating in the emergency room. She was given Ativan in the ER. She was also given a nebulizer treatment, prednisone, and magnesium in the emergency room. The patient stated that she did have some relief. The patient is being admitted to observation status on the date of service of 01/23/2025. Hospital Course: The patient is a 59-year-old female with a complex medical history including COPD, CHF, DM2, hypertension, hyperlipidemia, chronic pain, depression, PTSD, and a significant smoking history, who presented to the ED with a two-week history of worsening shortness of breath and recent hoarseness. On arrival, she was anxious and mildly tachypneic but maintained oxygen saturations of 96?100% on room air. Initial labs showed a mild leukocytosis (WBC 11.0), mild metabolic acidosis (CO2 19), and stable renal function (Cr 1.12?1.14, GFR ?50). BNP was mildly elevated at 117, and chest x-ray showed no acute cardiopulmonary process. She was treated in the ED with Ativan for anxiety, nebulized bronchodilators, prednisone, and magnesium, with reported symptomatic improvement. She was admitted for observation and management of an acute COPD exacerbation. During her stay, she received scheduled DuoNebs, oral prednisone, azithromycin, and doxycycline, with home Spiriva held and Symbicort continued. Her respiratory status improved, and she remained afebrile, without hypoxia or evidence of infection. Blood glucose was monitored closely due to steroid use, with oral hypoglycemics held and sliding scale insulin initiated. Her comorbidities, including CHF, hypertension, and chronic pain, were managed with home medications. She remained hemodynamically stable and euvolemic throughout admission. By the time of discharge, her breathing had improved, and she was stable on room air. Plan to discharge on 4 additional days of prednisone 40 mg to be taken daily. She was discharged in stable condition with instructions for ongoing management of her chronic conditions and follow-up care. Status at Discharge Functional status at discharge: independent ambulation Overall status at discharge: patient is back to baseline Time Spent with Patient Time attestation: Total time spent providing and/or coordinating discharge services: 31 Exam Narrative: General: NAD, appears older than stated age Eyes: EOMI ENT: neck supple Cardiovascular: Regular rate and rhythm Respiratory: Lung sounds clear to auscultation, respirations even and unlabored on RA Gastrointestinal: Soft, non tender Genitourinary: no suprapubic tenderness Musculoskeletal: No edema Skin: warm, dry Neuro: Alert. Psych: Mood appropriate Const: General: cooperative, comfortable, no acute distress, well developed, awake, Physically active, average body habitus and well nourished Nutritional Appearance: average body habitus and well nourished Orientation/consciousness: oriented to person, oriented to place, oriented to time and patient oriented x3 Limitations: no limitations HENMT: Head: normal to inspection, No palpable skull fracture present, normocephalic, atraumatic and abrasion Ears: hearing grossly normal bilaterally Eyes: General: appearance normal, both eyes and all related structures Alignment and Position: alignment normal Periorbital: periorbital findings normal Pupils: Equal, round and reactive pupils present Neck: Neck: normal visual inspection, full ROM, no lymphadenopathy and trachea midline Resp: Effort & Inspection: normal respiratory effort Auscultation: clear to auscultation bilaterally Percussion: percussion normal Cardio: Palpation: normal PMI Rate: regular rate Rhythm: regular rhythm Peripheral pulses: Peripheral pulses 2+ throughout GI: Inspection: normal to inspection : General: Yes no CVA tenderness Back/Spine/Pelvis: Back: no CVA tenderness Cervical Spine: cervical ROM normal Skin: General skin exam: normal color Lesions: no lesions Rashes: no rashes Trauma: no lacerations or abrasions Wounds: no wounds Hair: normal Nails: normal Neuro: General: oriented to person, oriented to place, oriented to time and patient oriented x3 Cranial nerves: Yes Equal, round and reactive pupils present and Yes Normal hearing present Cognition (Neuro): normal cognition Speech: normal speech Gait exam (Neuro): Normal gait present Motor exam (neuro): 5/5 motor strength present throughout Sensory Exam: normal sensation Extrem: General: normal to inspection Right upper extremity: normal to inspection and shoulder/upper arm Left upper extremity: normal to inspection and shoulder/upper arm Right lower extremity: normal to inspection Left lower extremity: normal to inspection Psych: Appearance: grossly normal Mental Status: mental status grossly normal Speech and movement: Normal speech and movement present Attitude: cooperative Thought process: Normal thought process present DS: Data Data Completed and Pending Labs on day of discharge: Labs from last 24 hours 01/25/25 01/25/25 01/24/25 07:27 05:43 19:58 WBC 12.4 H RBC 3.75 L Hgb 12.2 Hct 36.7 L MCV 97.9 MCH 32.5 MCHC 33.2 RDW 14.7 H Plt Count 260 MPV 10.5 H Sodium 139 Potassium 3.5 Chloride 106 Carbon Dioxide 26 Anion Gap 7 BUN 24 H Creatinine 1.25 H Estim Creat Clear Calc 37 Estimated GFR 44 L Glucose 148 H POC Capillary Glucose 161 H 238 H Calcium 10.0 01/24/25 01/24/25 16:54 11:47 WBC RBC Hgb Hct MCV MCH MCHC RDW Plt Count MPV Sodium Potassium Chloride Carbon Dioxide Anion Gap BUN Creatinine Estim Creat Clear Calc Estimated GFR Glucose POC Capillary Glucose 252 H 159 H Calcium Discharge Plan Discharge Attending physician on discharge: Celso Yates Consulting providers: hSirley Allen; Doc Sequeira Discharging Clinician: Doc Sequeira Anticipated Discharge Date/Time: 01/25/25 10:13 Patient Disposition: Home Activity: as tolerated Diet: regular Discharge Instructions: Discharge disposition: Home Take medications as prescribed. Continue your prednisone 40 mg once daily for the next 4 days. Monitor blood pressures Take caution while standing, rising, or moving Change positions slowly taking a break between each position change If you standing feel dizzy sit back down and take a break Encouraged to continue with yearly vaccinations Return to the emergency department if you develop sudden shortness of breath, chest pain, nausea, vomiting, upset stomach or intractable diarrhea Return to the emergency department if you develop fever greater than 101.5 Follow-up with the primary care physician within 1-2 weeks Thank you for [facility] for your healthcare needs Patient Instructions: Antibiotic Form Patient Language: Bahamian Stand Alone Forms: General Discharge Information Follow-up/Referrals: Jorge Luis Hill MD [Primary Care Provider, Family Practice] Discharge Medications: New prednisone 20 mg Tablet 40 mg PO DAILY@0800 Qty: 4 0RF Continued ropinirole 0.25 mg Tablet 0.25 mg PO HS albuterol sulfate [Ventolin HFA] 90 mcg/actuation Hfa Aerosol Inhaler 2 puff INHALATION QID PRN (Reason: Shortness Of Breath) rosuvastatin 20 mg Tablet 20 mg PO DAILY montelukast [Singulair] 10 mg tablet 10 mg PO HS metformin 500 mg tablet 500 mg PO DAILY losartan 50 mg tablet 50 mg PO DAILY clonidine HCl 0.1 mg tablet 0.1 mg PO HS furosemide 40 mg tablet 40 mg PO DAILY diltiazem HCl 360 mg capsule,extended release 24hr 360 mg PO DAILY loratadine 10 mg tablet 10 mg PO DAILY Januvia 50 mg tablet 50 mg PO DAILY acetaminophen 500 mg Tablet 1,000 mg PO Q6H PRN (Reason: Pain 1-3 or Fever) Qty: 30 0RF escitalopram oxalate 20 mg tablet 20 mg PO DAILY quetiapine 400 mg tablet 400 mg PO HS quetiapine [Seroquel] 100 mg tablet 100 mg PO DAILY gabapentin 300 mg capsule 300 mg PO Q8H aspirin 81 mg capsule 81 mg PO DAILY polyethylene glycol 3350 [Miralax] 17 gram powder in packet 17 g PO DAILY 5 Days Qty: 14 0RF Rx Instructions: Take daily until you have a bowel movement pantoprazole 40 mg tablet,delayed release (DR/EC) See Rx Instructions .ROUTE .COMPLEX Qty: 60 3RF Dose Instruction: TAKE ONE (1) TABLET BY MOUTH TWICE DAILY Rx Instructions: TAKE ONE (1) TABLET BY MOUTH TWICE DAILY metoclopramide HCl 10 mg tablet See Rx Instructions .ROUTE .COMPLEX Qty: 90 3RF Dose Instruction: TAKE 1 TABLET BY MOUTH THREE TIMES DAILY Rx Instructions: TAKE 1 TABLET BY MOUTH THREE TIMES DAILY amitriptyline 50 mg tablet See Rx Instructions .ROUTE .COMPLEX Qty: 30 3RF Dose Instruction: TAKE 1 TABLET BY MOUTH AT BEDTIME Rx Instructions: TAKE 1 TABLET BY MOUTH AT BEDTIME budesonide-formoterol [Symbicort] 160-4.5 mcg/actuation HFA aerosol inhaler 2 puff INHALATION Q12H Spiriva Respimat 2.5 mcg/actuation mist 2 puff INHALATION BID calcium carbonate [Calcium 600] 600 mg calcium (1,500 mg) tablet 600 mg PO DAILY ferrous sulfate [iron] 325 mg (65 mg iron) tablet 325 mg PO DAILY Patient Comments: BID Date of admission: 01/23/25 20:53 Primary Care Provider: Jorge Luis Hill Admitting Provider: Oni Fernandez Attending physician on admission: Oni Fernandez Condition: Stable Quality VTE Prophylaxis VTE prophylaxis: mechanical ordered
[2025-01-25] MEDS: INSULIN ASPART (*BKC) 100 UNITS/ML SUB-Q (12:52)
[2025-01-25] MEDS: INFLUENZA VACCINE 45 MCG/0.5 ML SYRINGE IM (13:16)
== END 2025-01-25 14:10 | disposition home or self-care (01) ==
LOC: ANHED 20:52 → ANH3MEDSUR 01-24 06:52
PROVIDERS: Nurse Practitioner; Admitting Provider Internal Medicine; Emergency Provider Emergency Medicine; PCP Emergency Medicine; Visit Provider Internal Medicine
DX: J44.1 Chronic obstructive pulmonary disease with (acute) exacerbation (principal); Z23 Encounter for immunization; E11.9 Type 2 diabetes mellitus without complications; E78.5 Hyperlipidemia, unspecified; G47.33 Obstructive sleep apnea (adult) (pediatric); Z86.73 Personal history of transient ischemic attack (TIA), and cerebral infarction without residual deficits; Z87.891 Personal history of nicotine dependence; M25.551 Pain in right hip; G89.4 Chronic pain syndrome; I50.9 Heart failure, unspecified; I11.0 Hypertensive heart disease with heart failure; M06.9 Rheumatoid arthritis, unspecified; Z79.84 Long term (current) use of oral hypoglycemic drugs; F41.9 Anxiety disorder, unspecified; F43.10 Post-traumatic stress disorder, unspecified; F32.A Depression, unspecified; K21.9 Gastro-esophageal reflux disease without esophagitis
CPT/HCPCS: 36415; 71045; 80048; 80053; 82948; 83036; 83605; 83735; 83880; 85025; 85027; 90471; 90656; 93005; 94640; 96365; 96366; 96372; 99285; A9270; G0008; G0378; G0379; J1650; J1815; J3475; J7512